=== PATIENT | male | born 1955 | race Caucasian/White ===

== ENCOUNTER → 2017-04-06 | Outpatient (CLI) | payer BC ==
[~2017-04-06] MED LIST: AMLO-114 PO; ASPEC81 PO; ATOR-24 PO; HYDC25 PO; METF-383 PO; OPTIRAY 320 IV PRN
--- NOTE | 2017-04-06 14:47 | DIAGNOSTIC IMAGING REPORT ---
ABD/PELVIS IV AND ORAL CONT CT DOSE: 746.11 mGycm HISTORY: Weight loss. Pain. Nausea. ABDOMINAL DISTENSION, RUQ PAIN, WEIGHT LOSS TECHNIQUE: Multiaxial CT images of the abdomen and pelvis were performed following the use of intravenous and oral contrast. A dose lowering technique was utilized adhering to the principles of ALARA. COMPARISON STUDY: None. FINDINGS: Lung bases are clear. Small hyperdensity superior right hepatic lobe suggestive of a small hemangioma. Liver is otherwise uniform. Gallbladder is moderately contracted. Possible gallstones. Spleen is uniform. Kidneys are unremarkable and are negative for hydronephrosis. Pancreas is fatty replaced. Bowel pattern is considered nonobstructive throughout. IMPRESSION: No significant abnormality identified within the abdomen or pelvis. Fatty replacement of the pancreas unchanged from the prior study. Contracted gallbladder possibly containing several small gallstones. The above report was generated using voice recognition software. It may contain grammatical, syntax or spelling errors. Electronically signed by: Don Bloom M.D. 04/06/2017 2:46 PM Dictated Date/Time: 04/06/2017 2:41 PM
[2017-04-06 16:32] LABS: ISTAT CREATININE 1.3 mg/dl (0.6-1.3); ISTAT HEMOGLOBIN 14.6 g/dl (14.0-18.0); ISTAT IONIZED CALCIUM 1.24 mmol/l (1.12-1.32)
== END | disposition home or self-care (01) ==
LOC: C.CTS 11:34
PROVIDERS: ATTEND Physician Assistant
DX: R22.2 Localized swelling, mass and lump, trunk (principal); R10.11 Right upper quadrant pain; R63.4 Abnormal weight loss; R14.0 Abdominal distension (gaseous)

== ENCOUNTER 2022-08-05 19:34 | Inpatient (IN) ==
[2022-08-05] MEDS ORDERED: SODIUM CHLORIDE 0.9% 1000ML 1,000 ML IV STA (20:04)
--- NOTE | 2022-08-05 20:30 | Emergency Department Note ---
History of Present Illness General Chief complaint: Back Injury/Pain Stated complaint: BACK PAIN Time Seen by Provider: 08/05/22 19:55 History of Present Illness Maximum Pain Intensity: 4 Pleasant 67-year-old male who presents to the emergency department with his mother for evaluation of left rib and abdomen pain. The patient reports that he was seen in the emergency department 3 days ago with a diagnosis of a lumbar vertebral fracture, and concerning lesion on his pelvis. The patient reports that he did call Dr. Duncan's office as requested, and they scheduled him for a follow-up on 09/05/2022. The patient reports that he has only taken 1 oxycodone since his last ED visit. He has been taking ibuprofen 400 mg twice daily. His mother reports that it only made his pain worse. The patient denies any chest pain, shortness of breath or focal abdominal pain. He denies any diarrhea, constipation or urinary symptoms. The patient has had a prior history of colonoscopy and upper endoscopy that he reports was normal. This was back several years ago. The patient currently rates his discomfort a 4 out of 10. Home Medications Medication Instructions Recorded Confirmed Type aspirin 81 mg tablet,delayed 81 mg PO DAILY 05/22/19 08/05/22 History release atorvastatin 40 mg tablet (Lipitor) 40 mg PO HS 08/09/19 08/05/22 History hydrochlorothiazide 12.5 mg capsule 12.5 mg PO DAILY 09/16/19 08/05/22 History lisinopril 20 mg tablet 20 mg PO DAILY 09/16/19 08/05/22 History metformin 500 mg tablet See Rx Instructions .Route .COMPLEX 09/16/19 08/05/22 History pen needle, diabetic 32 gauge x #100 ea 10/23/19 05/17/22 Rx /32" (BD Ultra-Fine Augustina Pen Needle) cholecalciferol (vitamin D3) 25 1,000 units PO DAILY 01/27/20 08/05/22 History mcg (1,000 unit) tablet multivitamin (Multiple Vitamins 1 tab PO DAILY 01/27/20 08/05/22 History tablet) glucosamine HCl 500 mg tablet 500 mg PO DAILY 08/20/20 08/05/22 History metoprolol tartrate 50 mg tablet 50 mg PO BID #180 tabs 11/16/21 08/05/22 Rx insulin degludec 100 unit/mL (3 33 unit (0.33 mL) subcut HS #2 04/05/22 08/05/22 Rx mL) subcutaneous pen (Tresiba Boxes FlexTouch U-100 insulin) semaglutide 2 mg/dose (8 mg/3 mL) 2 mg (0.75 mL) subcut Q7D #3 mL 05/03/22 08/05/22 Rx subcutaneous pen injector blood sugar diagnostic (Accu-Chek #100 ea 05/23/22 Rx Josephine Plus test strips) oxycodone 5 mg tablet 5 mg PO Q6H severe pain #12 tabs 08/02/22 08/05/22 Rx lidocaine 5 % topical patch 1 patch topical DAILY #15 ea 08/03/22 08/05/22 Rx diclofenac sodium 75 mg 75 mg PO BID PRN Pain 08/05/22 08/05/22 History tablet,delayed release Allergies Allergy/AdvReac Type Severity Reaction Status Date / Time amoxicillin [From Augmentin] Allergy Intermediate SWELLING Verified 08/05/22 21:54 AROUND EYES clavulanic acid Allergy Intermediate SWELLING Verified 08/05/22 21:54 AROUND THE EYES Penicillins Allergy Intermediate AUGMENTIN Verified 08/05/22 21:54 - SWELLING AROUND THE EYES diflunisal AdvReac Intermediate VOMITING Verified 08/05/22 21:54 valsartan [From Diovan] AdvReac Intermediate Vomiting Verified 08/05/22 21:54 Past Med/Surg History Medical History Bronchitis Chest pain Dyslipidemia GE reflux Gout Hypertension Laceration of multiple sites of left hand and fingers Obstructive sleep apnea Tendon laceration Type 2 diabetes mellitus Vitamin D deficiency Surgical History History of surgery on arm Family History Father Alzheimer disease Dyslipidemia Mother Diabetes Coronary heart disease Other Family history non-contributory Social History Smoking Status: Never smoker Hx Alcohol Use: Yes Preferred Language: Yakut marital status: Single marital status details: no children Current Living Situation: Alone current occupational status: retired Feels Safe at Home: Yes Review of Systems 10 system review was performed and was negative except for pertinent positives and negatives as indicated in history of present illness Physical Exam Vital Signs Vital Signs - 24 hr 08/05/22 19:34 08/05/22 22:11 08/05/22 22:12 Temperature 36.2 C L Temperature Source Temporal Artery Scan Pulse Rate 117 H Pulse Rate [Apical] 93 H Respiratory Rate 20 18 Respiratory Effort / Characteristics Non-Labored Spontaneous Respiratory Depth Normal Blood Pressure 137/79 Blood Pressure [Left Arm] 163/87 H Blood Pressure Mean 98 Blood Pressure Mean [Left Arm] 112 Pulse Oximetry 96 98 98 Oxygen Delivery Method Room Air Room Air Room Air Sepsis Recent Fever Within 48 Hours No Sepsis New/Unexplained Change in Mental Status No Sepsis Action Taken by Nursing No Action Required 08/06/22 00:00 Temperature Temperature Source Pulse Rate Pulse Rate [Apical] 100 H Respiratory Rate 20 Respiratory Effort / Characteristics Respiratory Depth Blood Pressure Blood Pressure [Left Arm] 177/109 H Blood Pressure Mean Blood Pressure Mean [Left Arm] 131 Pulse Oximetry 98 Oxygen Delivery Method Room Air Sepsis Recent Fever Within 48 Hours Sepsis New/Unexplained Change in Mental Status Sepsis Action Taken by Nursing CONSTITUTIONAL: Healthy and well nourished. Patient appears in mild discomfort. HEENT: No scleral icterus or conjunctival injection. NECK: Full active range of motion without discomfort. LYMPHATICS: No cervical chain adenopathy. RESPIRATORY: Clear to auscultation bilaterally with no wheezing, crackles, rhonchi or stridor. No worsening pain with deep breathing. CARDIOVASCULAR: Regular rate and rhythm with no murmurs, rubs or gallops. GASTROINTESTINAL: Bowel sounds present in all quadrants. Patient has mild but generalized left upper quadrant tenderness to palpation without rigidity, guarding or rebound. Negative CVA tenderness. MUSCULOSKELETAL: Patient is tender to palpation through the upper lumbar and lower thoracic region. He also has tenderness to palpation through the left anterolateral ribs without subcutaneous emphysema or flail chest. INTEGUMENTARY: No rash or other significant dermatologic conditions noted. HEMATOLOGIC: No ecchymosis or petechiae. PSYCHIATRIC: Positive affect. NEUROLOGIC: No focal neurologic deficits noted. Course Course Patient history and physical exam were performed. Nurses notes were reviewed. Vital signs were reviewed, showing a mild tachycardia. The patient is otherwise afebrile and normotensive with good O2 saturation on room air. I also reviewed documentation from the patient's ED visit on 08/02/2022. Patient does have a compression fracture of L1, as well as a concerning iliac lesion. The patient's case was discussed with Dr. Duncan, who recommended outpatient follow-up. The patient was provided a prescription for Oxy IR 5 mg, however it appears that he is only taken 1 pill this afternoon for the pain. Further review of medical record shows that the patient did have a colonoscopy in 2015, and EGD in 2013. These results were not available as this was only documented on scanned medical records. Because of new pain at this point, I was concerned for possibility of other metastatic bone pain, and recommended additional laboratory work-up and imaging of the chest and abdomen. The patient was in agreement. IV access was established, and labs were drawn. The patient refused any analgesics on initial exam. An ECG was performed, showing a sinus tachycardia without ischemic changes or ST elevations. Leftward axis deviation is noted. personnel monitor was also applied while in the emergency department. The patient was hydrated with a liter of normal saline as I wanted to do a CT with IV contrast. Review of labs shows a creatinine of 3.75, and calcium of 4.5. High-sensitivity troponin is also elevated at 26.9. IV contrast scans were canceled, and CTs without contrast were ordered. Findings were discussed with Dr. Russell, ED attending physician, who also evaluated the patient and agrees with work-up. [facility]. Please see their dictation for further treatment and final disposition. The patient refused any analgesics while in the emergency department. Administered Medications Discontinued Medications Sodium Chloride (Nss 1000ml) 1,000 mls @ 999 mls/hr IV .Q1H1M STA Stop: 08/05/22 21:04 Last Infusion: 08/05/22 21:13 Dose: 0 mls/hr Documented By: Admin: 08/05/22 20:11 Dose: 999 mls/hr Documented By: ANDREA Medical Decision Making Medical Records Attestation: I reviewed the patient's medical records. Home Medications Current Medication List: was personally reviewed by me Laboratory Data Attestation: I reviewed the patient's lab results. 08/05/22 20:13 08/05/22 20:13 Lab Results 08/05/22 08/05/22 08/05/22 Range/Units 20:13 20:13 20:13 WBC 7.00 (4.8-10.8) K/ul RBC 4.08 L (4.63-6.08) M/uL Hgb 13.3 L (14.0-18.0) g/dl Hct 36.7 L (40.1-51.0) % MCV 90.0 (80.0-100.0) fL MCH 32.6 (25.0-34.0) pg MCHC 36.2 H (32.0-36.0) g/dL RDW Std Deviation 42.3 (36.4-46.3) fL RDW Coeff of Jose Juan 12.9 (11.5-14.5) % Plt Count 271 (130-400) K/uL MPV 9.9 (9.4-12.4) fL Immature Gran % (Auto) 0.4 % Neut % (Auto) 72.1 % Lymph % (Auto) 16.9 % Obion % (Auto) 9.4 % Eos % (Auto) 0.9 % Baso % (Auto) 0.3 % Neut # (Auto) 5.05 (1.4-6.5) K/uL Lymph # (Auto) 1.18 L (1.2-3.4) K/uL [place] # (Auto) 0.66 (0.24-0.82) K/uL Eos # (Auto) 0.06 (0-0.50) K/uL Baso # (Auto) 0.02 (0-0.2) K/uL Immature Gran # (Auto) 0.03 H (0.00-0.02) K/uL PT 11.8 (9.0-12.0) Seconds INR 1.1 (0.9-1.1) Sodium 133 L (136-145) mmol/L Potassium 4.1 (3.5-5.1) mmol/L Chloride 98 (98-107) mmol/L Carbon Dioxide 25 (21-32) mmol/L Anion Gap 10 (3-11) BUN 55 H (6-23) mg/dl Creatinine 3.75 H (0.6-1.4) mg/dl Est Cr Clr Drug Dosing 19.9 ml/min Est GFR ( Amer) 17.9 ml/min Est GFR (Non-Af Amer) 15.5 ml/min BUN/Creatinine Ratio 14.7 (10-20) Glucose 198 H (70-99(Fasting)) mg/dl Calcium 14.5 H* (8.5-10.1) mg/dl Total Bilirubin 0.7 (0.2-1.0) mg/dl AST 14 (13-39) U/L ALT 17 (7-52) U/L Alkaline Phosphatase 119 H (34-104) U/L Troponin I High Sens 26.9 H (0-20) pg/ml Total Protein 7.0 (6.0-8.3) gm/dl Albumin 4.1 (3.4-5.0) gm/dl Globulin 2.9 (2.5-4.0) gm/dl Albumin/Globulin Ratio 1.4 (0.9-2) Lipase 6 L (11-82) U/L Urine Color Urine Appearance (Clear) Urine pH (4.5-7.5) Ur Specific Chauvin (1.000-1.030) Urine Protein (Negative) Urine Glucose (UA) (Negative) Urine Ketones (Negative) Urine Blood (Negative) Urine Nitrite (Negative) Urine Bilirubin (Negative) Urine Urobilinogen (Negative) Ur Leukocyte Esterase (Negative) Urine WBC (Auto) (0-5) /hpf Urine RBC (Auto) (0-4) /hpf U Hyaline Cast (Auto) (0-5) /lpf U Epithel Cells (Auto) (0-5) /lpf Urine Bacteria (Auto) (Negative) SARS-CoV-2, RNA, NAAT (NEGATIVE) 08/05/22 08/05/22 Range/Units 21:18 22:35 WBC (4.8-10.8) K/ul RBC (4.63-6.08) M/uL Hgb (14.0-18.0) g/dl Hct (40.1-51.0) % MCV (80.0-100.0) fL MCH (25.0-34.0) pg MCHC (32.0-36.0) g/dL RDW Std Deviation (36.4-46.3) fL RDW Coeff of Jose Juan (11.5-14.5) % Plt Count (130-400) K/uL MPV (9.4-12.4) fL Immature Gran % (Auto) % Neut % (Auto) % Lymph % (Auto) % [place] % (Auto) % Eos % (Auto) % Baso % (Auto) % Neut # (Auto) (1.4-6.5) K/uL Lymph # (Auto) (1.2-3.4) K/uL [place] # (Auto) (0.24-0.82) K/uL Eos # (Auto) (0-0.50) K/uL Baso # (Auto) (0-0.2) K/uL Immature Gran # (Auto) (0.00-0.02) K/uL PT (9.0-12.0) Seconds INR (0.9-1.1) Sodium (136-145) mmol/L Potassium (3.5-5.1) mmol/L Chloride (98-107) mmol/L Carbon Dioxide (21-32) mmol/L Anion Gap (3-11) BUN (6-23) mg/dl Creatinine (0.6-1.4) mg/dl Est Cr Clr Drug Dosing ml/min Est GFR ( Amer) ml/min Est GFR (Non-Af Amer) ml/min BUN/Creatinine Ratio (10-20) Glucose (70-99(Fasting)) mg/dl Calcium (8.5-10.1) mg/dl Total Bilirubin (0.2-1.0) mg/dl AST (13-39) U/L ALT (7-52) U/L Alkaline Phosphatase (34-104) U/L Troponin I High Sens (0-20) pg/ml Total Protein (6.0-8.3) gm/dl Albumin (3.4-5.0) gm/dl Globulin (2.5-4.0) gm/dl Albumin/Globulin Ratio (0.9-2) Lipase (11-82) U/L Urine Color Yellow Urine Appearance Clear (Clear) Urine pH 7.0 (4.5-7.5) Ur Specific Chauvin 1.010 (1.000-1.030) Urine Protein 1+ H (Negative) Urine Glucose (UA) Negative (Negative) Urine Ketones Negative (Negative) Urine Blood Trace H (Negative) Urine Nitrite Negative (Negative) Urine Bilirubin Negative (Negative) Urine Urobilinogen Negative (Negative) Ur Leukocyte Esterase Negative (Negative) Urine WBC (Auto) 1-5 (0-5) /hpf Urine RBC (Auto) 0-4 (0-4) /hpf U Hyaline Cast (Auto) 1-5 (0-5) /lpf U Epithel Cells (Auto) 10-20 H (0-5) /lpf Urine Bacteria (Auto) Negative (Negative) SARS-CoV-2, RNA, NAAT NEGATIVE (NEGATIVE) Imaging Data Attestation: I personally reviewed and interpreted this imaging study as follows: My Impression: My interpretation of the CT with IV contrast of the chest does not show any concerning pulmonary lesions, pneumothorax or consolidations. Radiologist does make mention of cholelithiasis. My interpretation of a CT with IV contrast of the abdomen and pelvis shows the previously known L1 vertebral compression fracture, otherwise no evidence for b owel obstruction, diverticulitis or abdominal free air. Patient does have a nonobstructing right intrarenal calculus per radiologist report. [facility] radiologist reports were also reviewed, and summarized below. Local radiologist report is pending. Radiologist's Impression: CT CHEST Without Contrast: Linear atelectasis right lung base. No lobar consolidations. No effusions. Heart size and pulmonary vascularity within normal limits evaluation the upper abdomen demonstrates cholelithiasis. Radiologist: Lloyd Moraes MD CT ABDOMEN & PELVIS Without Contrast: Please see separate dictation for details of the intrathoracic contents Cholelithiasis Nonobstructing right intrarenal calculus. No left intrarenal calculi. No ureteral or bladder calculi present on this exam. No free air or intestinal obstruction identified on this exam. Normal-appearing appendix in the right lower quadrant. L1 vertebral body compression fracture. Radiologist: Lloyd Moraes MD ECG Data Attestation: I personally reviewed and interpreted this ECG as follows: Indication: + chest pain Rate (beats per minute): 102 Rhythm: + sinus tachycardia ECG Intervals/blocks: + Normal QRS and + Normal GA ECG [place]: + Left axis deviation ECG ST segments: + Normal ST segments Comparison ECG Date: from (03/31/2022) Change: the following changes noted (PVCs no longer present) Prescription Drug Monitoring [place] Drug Monitoring [place] reviewed and no issues identified Blood Pressure Blood Pressure Findings: Normal blood pressure MDM Narrative Cardiac monitoring: An order was placed for continuous cardiac monitoring. The monitor shows a rate of 102 bpm with a sinus tachycardic rhythm. personnel monitor history was reviewed throughout the evaluation, and no dysrhythmias were noted. Patient presents the emergency department with complaint of left rib pain. The patient was just seen in the emergency department 3 days ago for an L1 compression fracture, as well as a concerning osteoblastic lesion within the left iliac wing. Today's laboratory studies are concerning for acute renal failure, and with hypercalcemia also noted, metastatic process was considered. Patient is afebrile and has no leukocytosis, leukopenia or pancytopenia. Additional laboratory studies are not suggestive of pancreatitis, cholecystitis or hepatitis. CT imaging does show evidence for cholelithiasis and a nonobstructing right nephrolithiasis. Chest imaging does not show any concerning pulmonary lesions, pneumonia or pneumothorax. Patient does have an elevated troponin of uncertain etiology, with no concerning ECG findings. The patient will likely require serial ECGs and cardiac isoenzymes. Impression & Plan Acute renal failure, Closed compression fracture of L1 vertebra, Lytic lesion of bone on x-ray, Hypercalcemia, Elevated troponin level Discharge Plan Visit Data Chief Complaint: Back Injury/Pain Stated Complaint: BACK PAIN ED Provider: Zhang Russell ED Midlevel Provider: Saji June Discharge Problem: Acute renal failure, Closed compression fracture of L1 vertebra, Lytic lesion of bone on x-ray, Hypercalcemia, Elevated troponin level Forms Stand Alone Forms: [facility] [employer] Prescriptions Prescriptions: No Action (DME) pen needle, diabetic [BD Ultra-Fine Augustina Pen Needle] 32 gauge x 5/32" needle See Rx Instructions .ROUTE .MEDSUPPLY Qty: 100 3RF Rx Instructions: Use to inject once daily metoprolol tartrate 50 mg tablet 50 mg PO BID Qty: 180 3RF Tresiba FlexTouch U-100 100 unit/mL (3 mL) insulin pen 33 unit SQ HS MDD 33 UNITS/DAILY Qty: 2 3RF Rx Instructions: Up to 33 units a day semaglutide 2 mg/dose (8 mg/3 mL) pen injector 2 mg subcut Q7D Qty: 3 5RF Rx Instructions: TAKES MONDAY EVENING (DME) Accu-Chek Josephine Plus test strp Strip See Rx Instructions .ROUTE .MEDSUPPLY Qty: 100 3RF Rx Instructions: checking TID multivitamin [Multiple Vitamins] Tablet 1 tab PO DAILY aspirin 81 mg tablet,delayed release (DR/EC) 81 mg PO DAILY atorvastatin [Lipitor] 40 mg tablet 40 mg PO HS cholecalciferol (vitamin D3) 25 mcg (1,000 unit) tablet 1,000 units PO DAILY glucosamine HCl 500 mg tablet 500 mg PO DAILY metformin 500 mg tablet See Rx Instructions .ROUTE .COMPLEX Rx Instructions: 500 mg orally; TAKES 500 MG QAM, THEN 1,000 MG QPM. lisinopril 20 mg tablet 20 mg PO DAILY hydrochlorothiazide 12.5 mg capsule 12.5 mg PO DAILY diclofenac sodium 75 mg tablet,delayed release (DR/EC) 75 mg PO BID PRN (Reason: Pain) oxycodone 5 mg tablet 5 mg PO Q6H Qty: 12 0RF lidocaine 5 % adhesive patch,medicated 1 patch topical DAILY Qty: 15 0RF Rx Instructions: "PHARMACY DID NOT GET IN YET" PER PT. leave on most painful area for up to 12 hrs Referrals Referrals: Maria Ines Damon DO [Primary Care Provider] -
[2022-08-05 20:34] LABS: Basophils # (auto) 0.02 K/uL (0-0.2); Basophils % (auto) 0.3 %; Eosinophils # (auto) 0.06 K/uL (0-0.50); Eosinophils % (auto) 0.9 %; Hematocrit (blood only) 36.7 % (40.1-51.0); Hemoglobin 13.3 g/dl (14.0-18.0); Immature Granulocytes # (auto) 0.03 K/uL (0.00-0.02); Immature Granulocytes % (auto) 0.4 %; Lymphocytes # (auto) 1.18 K/uL (1.2-3.4); Lymphocytes % (auto) 16.9 %; Mean Corpuscular Hemoglobin 32.6 pg (25.0-34.0); Mean Corpuscular Hgb Conc 36.2 g/dL (32.0-36.0); Mean Platelet Volume 9.9 fL (9.4-12.4); Monocytes # (auto) 0.66 K/uL (0.24-0.82); Monocytes % (auto) 9.4 %; Neutrophils # (auto) 5.05 K/uL (1.4-6.5); Neutrophils % (auto) 72.1 %; Platelet Count 271 K/uL (130-400); RDW Coefficient of Variation 12.9 % (11.5-14.5); RDW Standard Deviation 42.3 fL (36.4-46.3); Red Blood Count 4.08 M/uL (4.63-6.08)
[2022-08-05 20:44] LABS: INR 1.1 (0.9-1.1); Prothrombin Time 11.8 Seconds (9.0-12.0)
[2022-08-05 21:01] LABS: Albumin Globulin Ratio 1.4 (0.9-2); Albumin Level 4.1 gm/dl (3.4-5.0); BUN Creatinine Ratio 14.7 (10-20); Bilirubin,Total 0.7 mg/dl (0.2-1.0); Calcium 14.5 mg/dl (8.5-10.1); Creatinine Clr Calc Pharmacy 19.9 ml/min; Est GFR (African American) 17.9 ml/min; Est GFR (Non-African American) 15.5 ml/min; Globulin 2.9 gm/dl (2.5-4.0); Potassium 4.1 mmol/L (3.5-5.1); Troponin I High Sensitivity 26.9 pg/ml (0-20)
--- NOTE | 2022-08-05 21:37 | Emergency Department Note ---
ED Visit Note I was consulted by the Advanced Practice Provider Saji June PA-C. I saw the patient personally and performed a substantive portion of the visit. This includes aspects of the HPI, MDM, diagnostic interpretations, and disposition/plan. Patient does have an L1 vertebral fracture with elevated calcium. Patient was admitted to the medicine service. Patient CT did show concern for osteolytic lesions. .
--- NOTE | 2022-08-05 22:35 | History & Physical Report ---
Date of Service August 05, 2022 Assessment & Plan (1) Closed L1 vertebral fracture: Plan: Haroon is a 67 year old male w/ PmHx of T2DM on insulin, L1 vertebral compression fracture, AZAR, vitamin D deficiency, GERD, gout, HTN admitted for hypercalcemia. Hypercalcemia: -Calcium 14.5 on admission. -Calcium 8-9 previous admissions. -Given 1 bolus of NSS in ED. -Ordered PTH, PTHrP, ionized calcium, Vit-D 25 hydroxy, Vit D 1,25 Dihydroxy le vels, Mg, Phos. -U/A pending. -May be secondary to osteolytic lesions L iliac wing seen on CT on prior ED visit. -Workup for other possible secondary causes. -Consult oncology, appreciate recs. -Continued NSS at 125ml/hr. -Given Pamindronate 60mg IV one time dose. -Continue to monitor with AM BMP. -Admitted to PCU, continuous cardiac monitoring. Lytic Bone lesion of hip: -Same plan as above. Questionable source of lytic lesion, questionable underlying malignancy. Acute back pain: -Ongoing back pain since generator heavy load incident at work mid June. -CT Lumbar spine from 08/02 w/ evidence of L1 endplate compression fracture w/ mild loss of height. -Has scheduled appointment w/ Dr. Duncan 09/02. -Tylenol 650mg q4h PRN, ibuprofen 600mg q6h PRN, oxycodone 5mg for mod to severe pain. Acute renal failure: -GFR 15.5, Creatinine 3.75 on admission. -Baseline creatinine 1.2-1.4. -Most likely secondary to hypercalcemia. -Continue IV fluids as above. Elevated troponin: -Troponin 26.9 on admission. -Most likely secondary to demand ischemia. -Continue to trend until peak. T2DM: -Takes basal insulin at home 33U daily. -Hold remaining home medications. -Lantus 17U BID, SSI while inpatient. -Ordered A1c. -Glucose ACHS. Fatigue: -Most likely due to hypercalcemia, hgb 13.3 near baseline. -Continue to monitor mentation while on fluids. HTN: -continue home lisinopril, metoprolol, HCTZ. HLD: -Continue home atorvastatin and baby aspirin. F/E/N/GI: NPO, can restart diet if calcium coming down appropriately. DVT Prophylaxis: SCDs. Code status: Full code. Patient would not like for sustained measures if unable to obtain ROSC after 1 round of CPR, would not want more than one spontaneous trial of breathing if intubated. Dispo: PCU/Tele. (2) Lytic bone lesion of hip: (3) Acute back pain: (4) Acute renal failure: (5) Hypercalcemia: (6) Elevated troponin level: (7) Fatigue: (8) GE reflux: (9) Hypertension: (10) Dyslipidemia: (11) Type 2 diabetes mellitus: History of Present Illness Chief Complaint: Lower back and abdominal pain. Primary Care Provider: Maria Ines Damon DO Haroon is a 67 year old male w/ PmHx T2DM on insulin, L1 vertebral compression fracture, AZAR, vitamin D deficiency, GERD, gout, HTN coming in to the hospital for worsening lower back and LLQ abdominal pain. 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 The generator weighs about 300lbs each according to the patient. He states that after that happened he had R shoulder pain as well as lower back pain. He was told by his PCP office he likely has a rotator cuff tear/injury. The pain got worse a few weeks after the initial incident and so early July he came into the ED for the back pain. In the ED a L1 fracture w/ loss of height as well as lytic bone lesion of L anterior pelvic bone was seen on CT and he was told to follow up with spine surgery for further management. Patient states he was scheduled to go to Dr. Duncan's office at the beginning of August for initial evaluation and told that follow up after that may be mid August. Since that ED visit patient states that the pain has not subsided, gets marginally better with diclofenac, however no change with icy-hot. He states the pain is mostly at the anterior LLQ and pain at that area is a 5/10, he also has some lower back pain 3/10 at the mid back of the lumbar region. He states it's worse with getting up or sitting up from his water bed although gets a little better with walking. Patient denies any fevers, chills, night sweats, unintentional weight loss or weight gain, diarrhea, vomiting, chest pain, headaches, changes in vision or hearing, numbness or tingling, focal weakness. Upon further analysis of his [employer] chart patient was called on 10/07/2020 for development of shortness of breath, 12 pound weight loss over past year without trying, and coughing up pink/sometimes red sputum. He had a cardiac workup at that time which was negative and told to go to ED for further imaging and workup. He had CTA chest and CXR which were negative aside for 2 subcentimeter indeterminate pulmonary nodules (5mm). Allergies Allergy/AdvReac Type Severity Reaction Status Date / Time amoxicillin [From Augmentin] Allergy Intermediate SWELLING Verified 08/05/22 21:54 AROUND EYES clavulanic acid Allergy Intermediate SWELLING Verified 08/05/22 21:54 AROUND THE EYES Penicillins Allergy Intermediate AUGMENTIN Verified 08/05/22 21:54 - SWELLING AROUND THE EYES diflunisal AdvReac Intermediate VOMITING Verified 08/05/22 21:54 valsartan [From Diovan] AdvReac Intermediate Vomiting Verified 08/05/22 21:54 Home Medications Medication Instructions Recorded Confirmed Type aspirin 81 mg tablet,delayed 81 mg PO DAILY 05/22/19 08/05/22 History release atorvastatin 40 mg tablet (Lipitor) 40 mg PO HS 08/09/19 08/05/22 History hydrochlorothiazide 12.5 mg capsule 12.5 mg PO DAILY 09/16/19 08/05/22 History lisinopril 20 mg tablet 20 mg PO DAILY 09/16/19 08/05/22 History metformin 500 mg tablet See Rx Instructions .Route .COMPLEX 09/16/19 08/05/22 History pen needle, diabetic 32 gauge x #100 ea 10/23/19 05/17/22 Rx 5/32" (BD Ultra-Fine Augustina Pen Needle) cholecalciferol (vitamin D3) 25 1,000 units PO DAILY 01/27/20 08/05/22 History mcg (1,000 unit) tablet multivitamin (Multiple Vitamins 1 tab PO DAILY 01/27/20 08/05/22 History tablet) glucosamine HCl 500 mg tablet 500 mg PO DAILY 08/20/20 08/05/22 History metoprolol tartrate 50 mg tablet 50 mg PO BID #180 tabs 11/16/21 08/05/22 Rx insulin degludec 100 unit/mL (3 33 unit (0.33 mL) subcut HS #2 04/05/22 08/05/22 Rx mL) subcutaneous pen (Tresiba Boxes FlexTouch U-100 insulin) semaglutide 2 mg/dose (8 mg/3 mL) 2 mg (0.75 mL) subcut Q7D #3 mL 05/03/22 08/05/22 Rx subcutaneous pen injector blood sugar diagnostic (Accu-Chek #100 ea 05/23/22 Rx Josephine Plus test strips) oxycodone 5 mg tablet 5 mg PO Q6H severe pain #12 tabs 08/02/22 08/05/22 Rx lidocaine 5 % topical patch 1 patch topical DAILY #15 ea 08/03/22 08/05/22 Rx diclofenac sodium 75 mg 75 mg PO BID PRN Pain 08/05/22 08/05/22 History tablet,delayed release Past Med/Surg History Medical History Bronchitis Chest pain Dyslipidemia GE reflux Gout Hypertension Laceration of multiple sites of left hand and fingers Obstructive sleep apnea Tendon laceration Type 2 diabetes mellitus Vitamin D deficiency Surgical History History of surgery on arm Family History Father Alzheimer disease Dyslipidemia Mother Diabetes Coronary heart disease Other Family history non-contributory Social History Smoking Status: Never smoker Second Hand Exposure: No; Hx Alcohol Use: No Hx Substance Use: No Preferred Language: Croatian Communication Ability: Effective Food And Beverage Coordinator Required: No Beliefs That Will Affect Care: None marital status: Single marital status details: no children Current Living Situation: Alone current occupational status: retired Feels Safe at Home: Yes Assistive Devices: CPAP Review of Systems Review of Systems: As per HPI. Physical Exam Constitutional: WD/WN, vitals as above Eyes: PERRL, conjunctivae normal, anicteric sclerae Respiratory: normal respiratory effort, lungs clear to auscultation Cardiovascular: RRR, no murmur, no edema Gastrointestinal (Abdomen): BS+, obese habitus, soft, tender to palpation LLQ as well as at the L ASIS. Musculoskeletal: no cyanosis or clubbing, extremities motor strength 5/5 Skin: no rashes, warm and dry Psychiatric: A+Ox3, euthymic affect Results & Data Results & Data ([facility]) Vital Signs (Past 12 Hours) Vital Signs Temp Pulse Pulse Resp BP BP Pulse Ox 08/05/22 22:12 98 08/05/22 22:11 93 H 18 163/87 H 98 08/05/22 19:34 36.2 C L 117 H 20 137/79 96 O2 Del Method 08/05/22 22:12 Room Air 08/05/22 22:11 Room Air 08/05/22 19:34 Room Air Supervising Physician Co-Signing Physician Notes Attending addendum: I have physically seen this patient, have supervised the medical residents activities, and agree with the H&P unless as otherwise noted. Assessment and Plan: Hypercalcemia- Calcium 14.5 on admission Status post normal saline 1 L bolus in the ED Continue rehydration with NSS at 125 mils per hour Pamidronate 60 mg IV x1 now Follow serial BMP magnesium levels Acute kidney injury- Creatinine 3.75 on admission, with baseline creatinine 1.27 Hydration as above with IV fluids Repeat laboratory serially in a.m. Lytic bone lesions on hip- We will consult oncology Dr. Jesus Elevated troponin- Troponin 26.9 on admission Likely supply demand mismatch type II Follow serially per protocol Diabetes mellitus- Insulin glargine as note Sliding scale insulin for coverage Check hemoglobin A1c Remaining orders and notations as noted Resident Activity Tracking Resident Involvement: Resident Care Provided Care Provided: Adult Hospital Medicine
[2022-08-05 23:14] LABS: Appearance Urine Clear (Clear); Bacteria Urine Automated Negative (Negative); Bilirubin Urine Negative (Negative); Blood Urine Trace (Negative); Color Urine Yellow; Glucose Urine UA Negative (Negative); Ketones Urine Negative (Negative); Leukocyte Esterase Urine Negative (Negative); Nitrite Urine Negative (Negative); Protein Urine 1+ (Negative); RBC Urine Automated 0-4 /hpf (0-4); Urobilinogen Urine Negative (Negative)
[2022-08-06] MEDS ORDERED: GLUCOSE 40% GEL 15 GM TUBE PO PRN (00:53)
[2022-08-06] MEDS ORDERED: GLUCOSE 10 TAB/TUBE PO PRN (00:53)
[2022-08-06] MEDS ORDERED: ONDANSETRON INJ 2 MG/ML 2 ML VIAL IV PRN (00:53)
[2022-08-06] MEDS ORDERED: POLYETHYLENE (MIRALAX) 17 GM PACK PO PRN (00:53)
[2022-08-06] MEDS ORDERED: oxyCODONE HCL IR 5 MG TAB (IMMEDIATE RELEASE) PO PRN (00:53)
[2022-08-06] MEDS ORDERED: CARBOHYDRATES FOR HYPOGLYCEMIA PO PRN (00:53)
[2022-08-06] MEDS ORDERED: IBUPROFEN 600 MG TAB PO PRN (00:53)
[2022-08-06] MEDS ORDERED: DEXTROSE 50% 50 ML SYRINGE IV PRN (00:53)
[2022-08-06] MEDS ORDERED: GLUCAGON FOR INJ 1 MG VIAL SQ PRN (00:53)
[2022-08-06] MEDS ORDERED: PAMIDRONATE DISODIUM 60 MG in SODIUM CHLORIDE 0.9% 1000ML 1,000 ML IV ONE (01:30)
[2022-08-06 01:47] LABS: Basophils # (auto) 0.03 K/uL (0-0.2); Basophils % (auto) 0.5 %; Eosinophils % (auto) 1.8 %; Hematocrit (blood only) 32.7 % (40.1-51.0); Hemoglobin 11.7 g/dl (14.0-18.0); Immature Granulocytes # (auto) 0.02 K/uL (0.00-0.02); Immature Granulocytes % (auto) 0.4 %; Lymphocytes # (auto) 1.25 K/uL (1.2-3.4); Lymphocytes % (auto) 22.3 %; Mean Corpuscular Hemoglobin 32.5 pg (25.0-34.0); Mean Corpuscular Hgb Conc 35.8 g/dL (32.0-36.0); Mean Corpuscular Volume 90.8 fL (80.0-100.0); Mean Platelet Volume 9.6 fL (9.4-12.4); Monocytes # (auto) 0.47 K/uL (0.24-0.82); Monocytes % (auto) 8.4 %; Neutrophils # (auto) 3.73 K/uL (1.4-6.5); Neutrophils % (auto) 66.6 %; Platelet Count 235 K/uL (130-400); RDW Coefficient of Variation 12.9 % (11.5-14.5); RDW Standard Deviation 42.5 fL (36.4-46.3)
[2022-08-06] MEDS: SODIUM CHLORIDE 0.9% 1000ML 1,000 ML IV SCH ×3 (01:50→15:46)
[2022-08-06] MEDS: LANTUS PER UNIT CHARGE SQ SCH ×3 (02:07→22:03)
[2022-08-06 02:26] LABS: BUN Creatinine Ratio 14.5 (10-20); Calcium 13.6 mg/dl (8.5-10.1); Creatinine Clr Calc Pharmacy 20.4 ml/min; Est GFR (African American) 18.5 ml/min; Est GFR (Non-African American) 15.9 ml/min; Potassium 4.1 mmol/L (3.5-5.1)
[2022-08-06 02:27] LABS: Albumin Level 3.7 gm/dl (3.4-5.0); BUN Creatinine Ratio 14.6 (10-20); Calcium 13.6 mg/dl (8.5-10.1); Creatinine Clr Calc Pharmacy 20.5 ml/min; Est GFR (African American) 18.6 ml/min; Magnesium 1.7 mg/dl (1.7-2.4); Phosphorus 4.6 mg/dl (2.5-4.9); Potassium 4.1 mmol/L (3.5-5.1); Troponin I High Sensitivity 40.9 pg/ml (0-20)
[2022-08-06] MEDS: ACETAMINOPHEN 325 MG TAB PO PRN ×2 (03:14→09:14)
[2022-08-06 07:14] LABS: Estimated Average Glucose 137 mg/dl; Hemoglobin A1C 6.4 % (4.5-5.6)
--- NOTE | 2022-08-06 07:41 | CT Scan Report ---
CT chest diagnostic wo con CT DOSE: 1150.27 mGy.cm HISTORY: L rib pain, L1 fx, pelvic lesion = Cr 3.75 TECHNIQUE: Multiaxial CT images of the chest were performed without contrast. A dose lowering techni que was utilized adhering to the principles of ALARA. COMPARISON: Chest CTA 10/07/2020. FINDINGS: There are multiple lytic/destructive lesion seen scattered throughout the spine, ribs, manu brium, right clavicle, and left scapula consistent with metastatic disease. There are pathologic frac tures involving the right medial clavicle and left seventh rib. The abdominal structures will be repo rted on the same day abdomen and pelvis CT. No pleural or pericardial effusions. The heart is normal in size. Normal caliber esophagus and thoracic aorta. Mild elevation of the right hemidiaphragm. No m ediastinal, hilar, or axillary lymphadenopathy. No pneumothorax. Trace mucoid material within the tra matthieu. Mild dependent changes seen at the lung bases. A stable 5 no new pulmonary nodules identified. Mm nodule within the left lower lobe on image 171. IMPRESSION: 1. Multiple scattered lytic/destructive osseous lesions as described above consistent with metastatic disease. These result in pathologic fractures of the right medial clavicle and left seventh rib. No pneumothorax 2. Stable 5 mm nodule within the left lower lobe. No new pulmonary nodules identified. 3. The abdominal structures will be reported separately. ACT 112: Negative or not required by law. Electronically signed by: Keshawn Manzo M.D. 08/06/2022 7:40 AM
--- NOTE | 2022-08-06 07:53 | Hospitalist Progress Note ---
Date of Service August 06, 2022 Assessment & Plan (1) Hypercalcemia: Plan: 67yo male presenting with abdominal pain, back pain and side pain. Found to have severe hypercalcemia with Ca=14.5. Prior levels have been within normal range - 8-9. Patient thus far has been hydrated with NSS x 1L bolus then at 125mL/hr and has received Pamidronate 60mg IV x 1. Ionized calcium elevated at 1.82. Alkaline phosphatase is mildly elevated at 119. Mg is normal at 1.7, PO4 normal at 4.6. 25-OH vitamin D with normal at 77.9 PTH intact is normal at 51.4 PTHrP level is pending Concern for hypercalcemia secondary to malignancy with bone involvement - multiple osteolytic lesions noted on imaging. Additional considerations which could be contributing - patient is on HCTZ which can lead to hypercalcemia. He also endorses drinking a lot of mild - appx 1 gallon/week himself as well as frequently eating cheese. Doubtful, however, that these are contributing strongly to patient's current presentation. -Check urine Ca -Await PTHrP levels -Check SPEP and UPEP for possible multiple myeloma -Oncology consultation appreciated -Continue NSS at 125mL/hr -Repeat labs today pending -Will hold HCTZ (2) Osteolytic lesion: Plan: Patient with multiple osteolytic lesions and area of bony destruction noted on CT imaging. Also with hypercalcemia, YOSI and mildly elevated alkaline phosphatase. Concern for underlying malignancy - multiple myeloma versus metastatic disease. Per HPI, he did have complaint of SOB, 12 pound unintentional weight loss and productive cough/mild hemoptysis in September 2020. He reports having a colonoscopy 5 years ago with one polyp removed. No complaint of bowel changes, melena or hematochezia. PSA in [address] of the chest demonstrates a stable 5mm nodule in the LLL with no new pulmonary nodules. -Treatment of hypercalcemia as above -Check SPEP/UPEP -Oncology consultation appreciated (3) Acute renal failure: Plan: Patient's Cr 3.75 on admission from normal baseline of appx 1.2. Most likely secondary to hypercalcemia. -Repeat labs pending -Continue NSS at 125mL/hr -Avoid nephrotoxic medications -Renal dosing where appropriate for CrCl of 20.4 -Hold Lisinopril (4) Elevated troponin level: Plan: Troponin=26.9 on admission. Increased to 40.9 on repeat. Patient did have an episode of chest and back discomfort prior to arrival while trying to get out of bed. No acute ischemic changes on EKG -Continue telemetry monitoring -Repeat troponin pending -Continue ASA 81mg po daily -Continue Atorvastatin 40mg po qHS -Continue Metoprolol 50mg po BID (5) Closed L1 vertebral fracture: Plan: Patient with ongoing back pain since June. CT Lumbar spine from 08/02 w/ evidence of L1 endplate compression fracture w/ mild loss of height, no retropulsion. No neurologic symptoms. -Has scheduled appointment w/ Dr. Duncan 09/02. -Tylenol 650mg q4h PRN, ibuprofen 600mg q6h PRN, oxycodone 5mg for mod to severe pain. (6) Hypertension: Plan: Blood pressure presently elevated -Pain control as above -Continue Metoprolol -Holding HCTZ in setting of hypercalcemia -Holding Lisinopril in setting of YOSI (7) Type 2 diabetes mellitus: Plan: Patient takes 33u basal insulin at home as well as Metformin and Semaglutide. Well controlled DM - AIC today =6.4% -Lantus 17u BID and SSI -Hold Metformin and Semaglutide (8) Dyslipidemia: Plan: Chronic -Continue Atorvastatin and ASA F/E/N/GI: Renal diet as tolerated DVT Prophylaxis: Lovenox and SCDs Code status: Full code. Patient would not like for sustained measures if unable to obtain ROSC after 1 round of CPR, would not want more than one spontaneous trial of breathing if intubated. Dispo: PCU/Tele. Admission and Anticipated Discharge Date Admission Date: August 05, 2022 Subjective Patient seen and examined in ER room A10. Briefly, he is a 67yo male with history of HTN, DM and HLP presenting with complaint of left rib pain and abdominal pain. His discomfort initially began in mid-June after he sustained an injury while moving a generator that caused him pain in the shoulder and low back. He was seen in the ER at that time and found to have an L1 fracture as well as incidental finding of a lytic lesion in the left anterior pelvic bone. He is scheduled to see Dr. Duncan for management of the L1 fracture in August. Patient admitted overnight with worsening abdominal pain and pain in the left rib. Initial workup revealed hypercalcemia (Ca=14.5, ICal=1.82) as well as YOSI with Cr of 3.75 from baseline of appx 1.1 - 1.2. CT of the abdomen and pelvis unfortunately revealed numerous osteolytic skeletal lesions as well as acute nondisplaced pathologic fracture of the left lateral 7th rib as well as other areas of bony destruction and non-obstructing nephrolithiasis in the right kidney. Patient has been hydrated with NSS and given Pamidronate. Review of Systems Review of Systems: All systems reviewed & are unremarkable except as noted in HPI & below Physical Exam Physical Exam: General: patient resting comfortably, NAD, non-toxic in appearance, AA&O x 4 Skin: warm, dry, intact, no rashes or lesions HEENT: NC/AT, PERRL, EOMI, anicteric sclera, conjunctiva without injection, external ear normal to inspection and nontender, nares patent, slightly dry mucus membranes, dentition intact, no oropharyngeal lesions, neck supple, trachea midline, no LAD, no thyromegaly, no JVD Heart: +S1/S2, regular, no m/r/g Lungs: equal air entry bilaterally, no rales/rhonchi/wheezes Abd: +BS, soft, mildly distended and diffusely tender to palpation with voluntary guarding, no peritonitis, tenderness over left ribs Ext: warm, 2+ pulses in UE/LE bilaterally, no clubbing/cyanosis or edema Neuro: nonfocal, patient AA&O x 4, speech intact, no facial droop, moving all extremities on command with equal strength 5/5, occasional muscle spasms Results & Data Results & Data ([facility]) Vital Signs (Past 12 Hours) Vital Signs Temp Pulse Resp BP Pulse Ox Pulse Ox O2 Del Method 08/06/22 05:40 36.6 C 80 16 152/84 H 96 Room Air 08/06/22 01:59 99 H 16 156/88 H 97 Room Air 08/06/22 01:00 36.5 C 101 H 18 168/102 H 98 Room Air 08/06/22 01:04 98 08/06/22 00:00 100 H 20 177/109 H 98 Room Air 08/05/22 22:12 98 Room Air 08/05/22 22:11 93 H 18 163/87 H 98 Room Air O2 Del Method 08/06/22 05:40 08/06/22 01:59 08/06/22 01:00 08/06/22 01:04 Room Air 08/06/22 00:00 08/05/22 22:12 08/05/22 22:11 Laboratory Results Laboratory Results WBC 5.60 K/ul (4.8-10.8) 08/06/22 01:37 RBC 3.60 M/uL (4.63-6.08) L 08/06/22 01:37 Hgb 11.7 g/dl (14.0-18.0) L 08/06/22 01:37 Hct 32.7 % (40.1-51.0) L 08/06/22 01:37 MCV 90.8 fL (80.0-100.0) 08/06/22 01:37 MCH 32.5 pg (25.0-34.0) 08/06/22 01:37 MCHC 35.8 g/dL (32.0-36.0) 08/06/22 01:37 RDW Std Deviation 42.5 fL (36.4-46.3) 08/06/22 01:37 RDW Coeff of Jose Juan 12.9 % (11.5-14.5) 08/06/22 01:37 Plt Count 235 K/uL (130-400) 08/06/22 01:37 MPV 9.6 fL (9.4-12.4) 08/06/22 01:37 Immature Gran % (Auto) 0.4 % 08/06/22 01:37 Neut % (Auto) 66.6 % 08/06/22 01:37 Lymph % (Auto) 22.3 % 08/06/22 01:37 [place] % (Auto) 8.4 % 08/06/22 01:37 Eos % (Auto) 1.8 % 08/06/22 01:37 Baso % (Auto) 0.5 % 08/06/22 01:37 Neut # (Auto) 3.73 K/uL (1.4-6.5) 08/06/22 01:37 Lymph # (Auto) 1.25 K/uL (1.2-3.4) 08/06/22 01:37 [place] # (Auto) 0.47 K/uL (0.24-0.82) 08/06/22 01:37 Eos # (Auto) 0.10 K/uL (0-0.50) 08/06/22 01:37 Baso # (Auto) 0.03 K/uL (0-0.2) 08/06/22 01:37 Immature Gran # (Auto) 0.02 K/uL (0.00-0.02) 08/06/22 01:37 PT 11.8 Seconds (9.0-12.0) 08/05/22 20:13 INR 1.1 (0.9-1.1) 08/05/22 20:13 Sodium 136 mmol/L (136-145) 08/06/22 01:37 Potassium 4.1 mmol/L (3.5-5.1) 08/06/22 01:37 Chloride 101 mmol/L (98-107) 08/06/22 01:37 Carbon Dioxide 29 mmol/L (21-32) 08/06/22 01:37 Anion Gap 6 (3-11) 08/06/22 01:37 BUN 53 mg/dl (6-23) H 08/06/22 01:37 Creatinine 3.66 mg/dl (0.6-1.4) H 08/06/22 01:37 Est Cr Clr Drug Dosing 20.4 ml/min 08/06/22 01:37 Est GFR ( Amer) 18.5 ml/min 08/06/22 01:37 Est GFR (Non-Af Amer) 15.9 ml/min 08/06/22 01:37 BUN/Creatinine Ratio 14.5 (10-20) 08/06/22 01:37 Glucose 135 mg/dl (70-99(Fasting)) H 08/06/22 01:37 POC Glucose 140 mg/dl (70-99) H 08/06/22 07:28 Estimat Average Glucose 137 mg/dl 08/06/22 01:37 Hemoglobin A1c 6.4 % (4.5-5.6) H 08/06/22 01:37 Calcium 13.6 mg/dl (8.5-10.1) H* 08/06/22 01:37 Ionized Calcium 1.82 mmol/L (1.12-1.32) H* 08/06/22 01:36 Phosphorus 4.6 mg/dl (2.5-4.9) 08/06/22 01:36 Magnesium 1.7 mg/dl (1.7-2.4) 08/06/22 01:36 Total Bilirubin 0.7 mg/dl (0.2-1.0) 08/05/22 20:13 AST 14 U/L (13-39) 08/05/22 20:13 ALT 17 U/L (7-52) 08/05/22 20:13 Alkaline Phosphatase 119 U/L (34-104) H 08/05/22 20:13 Troponin I High Sens 40.9 pg/ml (0-20) H D 08/06/22 01:36 Total Protein 7.0 gm/dl (6.0-8.3) 08/05/22 20:13 Albumin 3.7 gm/dl (3.4-5.0) 08/06/22 01:36 Globulin 2.9 gm/dl (2.5-4.0) 08/05/22 20:13 Albumin/Globulin Ratio 1.4 (0.9-2) 08/05/22 20:13 Lipase 6 U/L (11-82) L 08/05/22 20:13 25-OH Vitamin D Total 77.9 ng/ml (30-100) 08/06/22 01:36 PTH Intact 51.4 pg/ml (12.0-88.0) 08/06/22 01:37 Urine Color Yellow 08/05/22 22:35 Urine Appearance Clear (Clear) 08/05/22 22:35 Urine pH 7.0 (4.5-7.5) 08/05/22 22:35 Ur Specific St[place] 1.010 (1.000-1.030) 08/05/22 22:35 Urine Protein 1+ (Negative) H 08/05/22 22:35 Urine Glucose (UA) Negative (Negative) 08/05/22 22:35 Urine Ketones Negative (Negative) 08/05/22 22:35 Urine Blood Trace (Negative) H 08/05/22 22:35 Urine Nitrite Negative (Negative) 08/05/22 22:35 Urine Bilirubin Negative (Negative) 08/05/22 22:35 Urine Urobilinogen Negative (Negative) 08/05/22 22:35 Ur Leukocyte Esterase Negative (Negative) 08/05/22 22:35 Urine WBC (Auto) 1-5 /hpf (0-5) 08/05/22 22:35 Urine RBC (Auto) 0-4 /hpf (0-4) 08/05/22 22:35 U Hyaline Cast (Auto) 1-5 /lpf (0-5) 08/05/22 22:35 U Epithel Cells (Auto) 10-20 /lpf (0-5) H 08/05/22 22:35 Urine Bacteria (Auto) Negative (Negative) 08/05/22 22:35 SARS-CoV-2, RNA, NAAT NEGATIVE (NEGATIVE) 08/05/22 21:[address] 08/05/22 21:08 CT chest diagnostic wo con CT DOSE: 1150.27 mGy.cm HISTORY: L rib pain, L1 fx, pelvic lesion = Cr 3.75 TECHNIQUE: Multiaxial CT images of the chest were performed without contrast. A dose lowering technique was utilized adhering to the principles of ALARA. COMPARISON: Chest CTA 10/07/2020. FINDINGS: There are multiple lytic/destructive lesion seen scattered throughout the spine, ribs, manubrium, right clavicle, and left scapula consistent with metastatic disease. There are pathologic fractures involving the right medial clavicle and left seventh rib. The abdominal structures will be reported on the same day abdomen and pelvis CT. No pleural or pericardial effusions. The heart is normal in size. Normal caliber esophagus and thoracic aorta. Mild elevation of the right hemidiaphragm. No mediastinal, hilar, or axillary lymphadenopathy. No pneumothorax. Trace mucoid material within the trachea. Mild dependent changes seen at the lung bases. A stable 5 no new pulmonary nodules identified. Mm nodule within the left lower lobe on image 171. IMPRESSION: 1. Multiple scattered lytic/destructive osseous lesions as described above consistent with metastatic disease. These result in pathologic fractures of the right medial clavicle and left seventh rib. No pneumothorax 2. Stable 5 mm nodule within the left lower lobe. No new pulmonary nodules identified. 3. The abdominal structures will be reported separately. ACT 112: Negative or not required by law. Electronically signed by: Keshawn Manzo M.D. 08/06/2022 7:40 AM Abdomen/Pelvis CT 08/05/22 21:[address] WITHOUT CONTRAST HISTORY: Acute left-sided flank pain in a patient with history of known osteolytic lesions L rib pain, L1 fx, pelvic lesion = Cr 3.75 TECHNIQUE: Multiaxial CT images of the abdomen and pelvis were performed without contrast. A dose lowering technique was utilized adhering to the principles of ALARA. COMPARISON STUDY: Chest CT of same day, CT lumbar spine August 02, 2022 FINDINGS: Moderate coronary artery calcifications. Unchanged right hemidiaphragmatic elevation. Stable 5 mm nodule within the left lower lobe, image 65. No pneumatosis or pneumoperitoneum. The unenhanced spleen, dystrophic pancreas and adrenal glands are unremarkable. Cholelithiasis. Indeterminate 1.5 cm lesion of the right hepatic lobe on image 16 series 3. This lesion appears stable from 10/07/2020 favoring a benign etiology. There are least 4 nonobstructing calculi of the right kidney measuring up to 5 mm. No ureteral calculi or hydronephrosis. Mild prostamegaly. Atherosclerosis of the aorta without aneurysm. No lymphadenopathy. No bowel obstruction or bowel wall thickening. Mild colonic diverticulosis. Noninflamed appendix. Tiny fat filled umbilical hernia. No ascites or mesenteric inflammation. Degenerative changes of the shoulders and spine. Multifocal osteolytic skeletal metastasis are again noted. Acute nondisplaced pathologic fracture of the posterolateral left seventh rib. Unchanged appearance of the acute L1 vertebral body fracture with 25% superior vertebral body height loss. No retropulsion. Additional large bony destruction the posterior medial left eighth rib with partial invasion into the adjacent neural foramen. Large osteolytic lesions of the pelvis are most pronounced in the left iliac wing with bony destruction. Additional lesions of the pelvic ring are most pronounced in the left inferior pubic ramus with areas of bony destruction. IMPRESSION: 1. Numerous osteolytic skeletal lesions are redemonstrated suggestive of metastasis versus multiple myeloma. 2. Acute nondisplaced pathologic fracture involving of the lateral left seventh rib with additional multifocal areas of bony destruction as above. 3. Unchanged appearance of the acute pathologic L1 fracture, stable from 08/02/2022. 4. No bowel obstruction or bowel wall thickening. 5. Right nephrolithiasis. 6. Cholelithiasis. ACT 112: Negative or not required by law. The above report was generated using voice recognition software. It may contain grammatical, syntax or spelling errors. Electronically signed by: Дмитрий Wooten M.D. 08/06/2022 7:53 AM PG Care Time/CCT Total # of Minutes Spent Total Time Spent with Patient: Total time spent is greater than 50% in coordination of care (as documented) at patient's floor/unit and/or counseling patient: Coding Level of Care Code 25327 SUB INP/OBS CARE MIN Diagnoses Hypercalcemia E83.52 Osteolytic lesion M89.50 Acute renal failure N17.9 Elevated troponin level R77.8 Closed L1 vertebral fracture S32.019A Hypertension I10 Type 2 diabetes mellitus E11.9 Dyslipidemia E78.5
--- NOTE | 2022-08-06 07:55 | CT Scan Report ---
ABDOMEN AND PELVIS CT WITHOUT CONTRAST HISTORY: Acute left-sided flank pain in a patient with history of known osteolytic lesions L rib kristina n, L1 fx, pelvic lesion = Cr 3.75 TECHNIQUE: Multiaxial CT images of the abdomen and pelvis were performed without contrast. A dose lo wering technique was utilized adhering to the principles of ALARA. COMPARISON STUDY: Chest CT of same day, CT lumbar spine August 02, 2022 FINDINGS: Moderate coronary artery calcifications. Unchanged right hemidiaphragmatic elevation. Stabl e 5 mm nodule within the left lower lobe, image 65. No pneumatosis or pneumoperitoneum. The unenhance d spleen, dystrophic pancreas and adrenal glands are unremarkable. Cholelithiasis. Indeterminate 1.5 cm lesion of the right hepatic lobe on image 16 series 3. This lesion appears stable from 10/07/2020 f avoring a benign etiology. There are least 4 nonobstructing calculi of the right kidney measuring up to 5 mm. No ureteral calcul i or hydronephrosis. Mild prostamegaly. Atherosclerosis of the aorta without aneurysm. No lymphadenop athy. No bowel obstruction or bowel wall thickening. Mild colonic diverticulosis. Noninflamed appendi x. Tiny fat filled umbilical hernia. No ascites or mesenteric inflammation. Degenerative changes of t he shoulders and spine. Multifocal osteolytic skeletal metastasis are again noted. Acute nondisplaced pathologic fracture of the posterolateral left seventh rib. Unchanged appearance of the acute L1 ivan tebral body fracture with 25% superior vertebral body height loss. No retropulsion. Additional large bony destruction the posterior medial left eighth rib with partial invasion into the adjacent neural foramen. Large osteolytic lesions of the pelvis are most pronounced in the left iliac wing with bony destruction. Additional lesions of the pelvic ring are most pronounced in the left inferior pubic nora us with areas of bony destruction. IMPRESSION: 1. Numerous osteolytic skeletal lesions are redemonstrated suggestive of metastasis versus multiple m yeloma. 2. Acute nondisplaced pathologic fracture involving of the lateral left seventh rib with additional m ultifocal areas of bony destruction as above. 3. Unchanged appearance of the acute pathologic L1 fracture, stable from 08/02/2022. 4. No bowel obstruction or bowel wall thickening. 5. Right nephrolithiasis. 6. Cholelithiasis. ACT 112: Negative or not required by law. The above report was generated using voice recognition software. It may contain grammatical, syntax o r spelling errors. Electronically signed by: Дмитрий Wooten M.D. 08/06/2022 7:53 AM
[2022-08-06] MEDS: INSULIN ASPART PER UNIT SC SCH ×4 (08:08→21:30)
[2022-08-06] MEDS ORDERED: hydroCHLOROthiazide 25 MG TAB PO SCH (09:00)
[2022-08-06] MEDS ORDERED: lisinopril 20 MG TAB PO SCH (09:00)
[2022-08-06] MEDS: METOPROLOL TARTRATE 50 MG TAB PO SCH ×2 (09:08→21:09)
[2022-08-06] MEDS: GLUCOSAMINE SULFATE 500 MG CAP PO SCH (09:08)
[2022-08-06] MEDS: ASPIRIN 81 MG ECTAB PO SCH (09:08)
--- NOTE | 2022-08-06 10:01 | Consultation ---
Date of Consultation August 06, 2022 Assessment & Plan (1) Osteolytic lesion: The combination of lytic bone lesions, hypercalcemia, and renal insufficiency in the absence of signs on body CT of another potential primary site (especially lacking any signs of renal, bladder, or lung mass) as well as noting that the patient is a non-smoker certainly strongly point towards the possibility of multiple myeloma. Indeed, any 1 of those 3 presenting features would be definitional of myeloma so long as there is a plasma cell clone confirmed. In time, that would require biopsy of one of the lesions and/or "blind" bone marrow biopsy but just the identification of a significant monoclonal protein would be sufficient for presumptive diagnosis. Urine protein electrophoresis and serum protein electrophoresis have already been ordered. I will add to that quantitative immunoglobulins and kappa/lambda light chain assessments as well. I do note that there is not a dramatic elevation of the total protein or globulin levels. There is a possibility of a "nonsecretory "myeloma as well such that the absence of demonstrated monoclonal protein will not exclude that diagnosis. Immediate management should be focused on addressing the hypercalcemia and pain and renal insufficiency. Hospitalist team has already appropriately undertaken the initial administration of a bisphosphonate and continues with hydration, calcitonin, and pain management. Wouldl incorporate orthopedics review to assess for any instability of the lytic lesions that might require acute stabilization. So long as initial response of calcium levels and renal function is achieved, obtaining additional biopsy material will be a semielective and perhaps even outpatient process. If we confirm the presence of a monoclonal protein, we can give an empiric course of dexamethasone even as we await that final definition to begin cytoreduction/stabilization of presumed myeloma. Plan Immediate priorities are addressing the hypercalcemia and acute renal insufficiency as you are already doing. Consider orthopedics review to identify any lytic bone lesions that might warrant fixation and stabilization If there are discrete areas of pain not easily relieved pharmacologically, could consider empiric radiation If a monoclonal protein is confirmed, will consider an empiric short course of high-dose steroids to stabilize Will require definitive biopsy definition with sampling either from one of the bone lesions or a more standard blind bone marrow biopsy but those will likely be pursued as an outpatient Has already received 1 dose of bisphosphonates. Will require long-term bone directed therapy though if his calcium stabilizes that would continue on a every 4 week basis History of Present Illness Reason for Consultation: Patient presenting with hypercalcemia, multiple skeletal lytic lesions, and acute renal insufficiency. Attending Physician: Kunal Dorman MD History of Present Illness This is an electronic consultation based on review of the record in [employer]. I am not able to examine the patient or speak with him directly but the database provides ample information for initial assessment and recommendation. Allergies Allergy/AdvReac Type Severity Reaction Status Date / Time amoxicillin [From Augmentin] Allergy Intermediate SWELLING Verified 08/05/22 21:54 AROUND EYES clavulanic acid Allergy Intermediate SWELLING Verified 08/05/22 21:54 AROUND THE EYES Penicillins Allergy Intermediate AUGMENTIN Verified 08/05/22 21:54 - SWELLING AROUND THE EYES diflunisal AdvReac Intermediate VOMITING Verified 08/05/22 21:54 valsartan [From Diovan] AdvReac Intermediate Vomiting Verified 08/05/22 21:54 Home Medications Medication Instructions Recorded Confirmed Type aspirin 81 mg tablet,delayed 81 mg PO DAILY 05/22/19 08/05/22 History release atorvastatin 40 mg tablet (Lipitor) 40 mg PO HS 08/09/19 08/05/22 History hydrochlorothiazide 12.5 mg capsule 12.5 mg PO DAILY 09/16/19 08/05/22 History lisinopril 20 mg tablet 20 mg PO DAILY 09/16/19 08/05/22 History metformin 500 mg tablet See Rx Instructions .Route .COMPLEX 09/16/19 08/05/22 History pen needle, diabetic 32 gauge x #100 ea 10/23/19 05/17/22 Rx 5/32" (BD Ultra-Fine Augustina Pen Needle) cholecalciferol (vitamin D3) 25 1,000 units PO DAILY 01/27/20 08/05/22 History mcg (1,000 unit) tablet multivitamin (Multiple Vitamins 1 tab PO DAILY 01/27/20 08/05/22 History tablet) glucosamine HCl 500 mg tablet 500 mg PO DAILY 08/20/20 08/05/22 History metoprolol tartrate 50 mg tablet 50 mg PO BID #180 tabs 11/16/21 08/05/22 Rx insulin degludec 100 unit/mL (3 33 unit (0.33 mL) subcut HS #2 04/05/22 08/05/22 Rx mL) subcutaneous pen (Tresiba Boxes FlexTouch U-100 insulin) semaglutide 2 mg/dose (8 mg/3 mL) 2 mg (0.75 mL) subcut Q7D #3 mL 05/03/22 08/05/22 Rx subcutaneous pen injector blood sugar diagnostic (Accu-Chek #100 ea 05/23/22 Rx Josephine Plus test strips) oxycodone 5 mg tablet 5 mg PO Q6H severe pain #12 tabs 08/02/22 08/05/22 Rx lidocaine 5 % topical patch 1 patch topical DAILY #15 ea 08/03/22 08/05/22 Rx diclofenac sodium 75 mg 75 mg PO BID PRN Pain 08/05/22 08/05/22 History tablet,delayed release Patient History Medical History Bronchitis Chest pain Dyslipidemia GE reflux Gout Hypertension Laceration of multiple sites of left hand and fingers Obstructive sleep apnea Tendon laceration Type 2 diabetes mellitus Vitamin D deficiency Surgical History History of surgery on arm Family History Father Alzheimer disease Dyslipidemia Mother Diabetes Coronary heart disease Other Family history non-contributory Social History Smoking Status: Never smoker Second Hand Exposure: No; Do You Dip or Chew Tobacco: No; Tobacco Cessation Education Requested by Patient: No Hx Alcohol Use: No Hx Substance Use: No Preferred Language: Czech Communication Ability: Effective Assistant [employer] Required: No Beliefs That Will Affect Care: None marital status: Single marital status details: no children Current Living Situation: Alone current occupational status: retired Other Information That Helps Us Care for You: No Feels Safe at Home: Yes Safety Concerns: Feels Safe At This Time Assistive Devices: CPAP Physical Exam Physical Exam: VSS noting a moderate elevation of both systolic and diastolic blood pressure but otherwise patient is afebrile, oxygenating well and not tachycardic. Results & Data ([facility]) Vital Signs (Past 12 Hours) Vital Signs Temp Pulse Resp BP Pulse Ox Pulse Ox O2 Del Method 08/06/22 07:45 36.4 C L 84 H 176/100 H 96 Room Air 08/06/22 05:40 36.6 C 80 16 152/84 H 96 Room Air 08/06/22 01:59 99 H 16 156/88 H 97 Room Air 08/06/22 01:00 36.5 C 101 H 18 168/102 H 98 Room Air 08/06/22 01:04 98 08/06/22 00:00 100 H 20 177/109 H 98 Room Air 08/05/22 22:12 98 Room Air 08/05/22 22:11 93 H 18 163/87 H 98 Room Air O2 Del Method 08/06/22 07:45 08/06/22 05:40 08/06/22 01:59 08/06/22 01:00 08/06/22 01:04 Room Air 08/06/22 00:00 08/05/22 22:12 08/05/22 22:11 PG Care Time/CCT Total # of Minutes Spent Total Time Spent with Patient: Total time spent is greater than 50% in coordination of care (as documented) at patient's floor/unit and/or counseling patient: Coding Level of Care Code INP/OBS CONSULT LVL 2, 35 MIN Diagnoses Osteolytic lesion M89.50
[2022-08-06 10:38] LABS: BUN Creatinine Ratio 14.6 (10-20); Calcium 13.8 mg/dl (8.5-10.1); Est GFR (African American) 19.2 ml/min; Est GFR (Non-African American) 16.5 ml/min
[2022-08-06 10:51] LABS: Immunoglobulin A 43.5 mg/dl (70-400); Immunoglobulin G 455.6 mg/dl (635-1741); Immunoglobulin M < 20.0 mg/dl (45-281)
[2022-08-06] MEDS ORDERED: CALCITONIN SALMON 400 UNITS/2 ML SQ ONE (11:00)
[2022-08-06 15:24] LABS: Anion Gap 8 (3-11); BUN Creatinine Ratio 14.7 (10-20); Blood Urea Nitrogen 50 mg/dl (6-23); Calcium 13.4 mg/dl (8.5-10.1); Carbon Dioxide 25 mmol/L (21-32); Chloride 107 mmol/L (98-107); Creatinine Clr Calc Pharmacy 21.9 ml/min; Est GFR (African American) 20.1 ml/min; Est GFR (Non-African American) 17.4 ml/min; Glucose 142 mg/dl (70-99(Fasting)); Sodium 140 mmol/L (136-145)
[2022-08-06] MEDS: CALCITONIN SALMON 400 UNITS/2 ML SQ SCH (21:09)
[2022-08-06] MEDS: HEPARIN SOD 5,000 UNIT/0.5 ML VIAL SQ SCH (21:09)
[2022-08-06] MEDS: ATORVASTATIN 40 MG TAB PO SCH (21:09)
[2022-08-06 21:53] LABS: BUN Creatinine Ratio 14.4 (10-20); Calcium 11.7 mg/dl (8.5-10.1); Creatinine Clr Calc Pharmacy 22.4 ml/min; Est GFR (African American) 20.7 ml/min; Est GFR (Non-African American) 17.9 ml/min; Potassium 4.1 mmol/L (3.5-5.1)
--- NOTE | 2022-08-07 04:11 | Billing Data ---
Date of Service August 07, 2022 Coding Level of Care Code 59684 INT INP/OBS CARE
[2022-08-07] MEDS: SODIUM CHLORIDE 0.9% 1000ML 1,000 ML IV SCH ×3 (05:06→17:07)
[2022-08-07 07:10] LABS: Hematocrit (blood only) 34.9 % (40.1-51.0); Hemoglobin 12.9 g/dl (14.0-18.0); Mean Corpuscular Hemoglobin 32.7 pg (25.0-34.0); Mean Corpuscular Volume 88.4 fL (80.0-100.0); Mean Platelet Volume 9.9 fL (9.4-12.4); Platelet Count 264 K/uL (130-400); RDW Coefficient of Variation 12.9 % (11.5-14.5); RDW Standard Deviation 42.1 fL (36.4-46.3); Red Blood Count 3.95 M/uL (4.63-6.08); White Blood Count 6.41 K/ul (4.8-10.8)
--- NOTE | 2022-08-07 07:21 | Hospitalist Progress Note ---
Date of Service August 07, 2022 Assessment & Plan (1) Metabolic encephalopathy: Plan: Haroon is a 67 year old male w/ PMHx of T2DM on insulin, L1 vertebral compression fracture, AZAR, vitamin D deficiency, GERD, gout, HTN admitted for hypercalcemia with concern for underlying malignancy (MM vs. metastatic disease with unknown primary). Metabolic encephalopathy: - Increasingly confused overnight in the setting of hypercalcemia and YOSI, these are most likely causes. - No focal neurologic deficits (strength of all limbs intact, no facial droop, no slurred speech) and able to have conversations in periods of lucency. - UTox ordered. - Patient given Ativan and Haldol earlier today due to pulling out IV lines, trying to remove medical equipment, combative with staff. - Consider CT Head, however would consider IV contrast given unknown primary cancer, and would defer contrast for now given ARF. (2) Hypercalcemia: Plan: -Calcium 14.5 on admission -> 11.1 this morning with ICal 1.50. -Calcium 8-9 previous admissions. -Given 1 bolus of NSS in ED -> has been on NSS at 125cc/hr, continue. -PTH normal, Mg 1.7, Phos 4.6. -PTHrP/Vit-D 25 hydroxy/Vit D 1,25 Dihydroxy levels pending. -UA no evidence of infection. -Suspect metastatic cancer vs. multiple myeloma. Unclear primary at this time. -Oncology consulted; ultimately may need tissue biopsy of lesions for clarification. IgG, IgA, IgM not elevated. SPEP/UPEP pending. -Given Pamidronate 60mg IV x1. Continue Calcitonin BID. -Nephrology also consulted and appreciate recommendations. -Admitted to PCU, continuous cardiac monitoring. Daily EKGs. (3) Acute renal failure: Plan: -Creatinine 3.75 on admission -> 3.11 this morning. -Baseline creatinine 1.2-1.4. -Most likely secondary to hypercalcemia. -Continue IV fluids as above. (4) Closed L1 vertebral fracture: Plan: -Ongoing back pain since generator heavy load incident at work mid June. -CT Lumbar spine from 08/02 with evidence of L1 endplate compression fracture with mild loss of height, as well as acute nondisplaced pathologic fracture of lateral 7th rib. Has scheduled appointment w/ Dr. Dnucan 09/02. -Ortho consulted this admission for eval of osteolytic lesions ->Tumor biopsy can be deferred until after his mental status improves, and recommendation made for Ortho Oncology if bone biopsy needed (such as Dr. Eris Armstrong at [facility]). -Tylenol/morphine as needed for pain. (5) Lytic bone lesion of hip: Plan: -Noted on CT imaging to have multiple scattered lytic/destructive lesions consistent with metastatic disease. -Same plan as above. Questionable underlying malignancy, unclear primary at this time. -Will need CT Head with contrast to eval for brain lesions, however will defer for now given significant YOSI. (6) Acute back pain: Plan: see above (7) Elevated troponin level: Plan: -Troponin 26.9 on admission, has since downtrended. -Suspect due to poor clearance from YOSI. (8) Fatigue: Plan: -Most likely due to hypercalcemia. Has been trending down since August (14.9 at that time), however no evidence of bleeding from any source. -Stool Hemoccult ordered. (9) Hypertension: Plan: -Continue home lisinopril, metoprolol, HCTZ when taking PO. -For now, labetalol 10mg IV q8h ordered as needed for BP >180 systolic. (10) Dyslipidemia: Plan: -Continue home atorvastatin and baby aspirin. (11) Type 2 diabetes mellitus: Plan: -Takes basal insulin at home 33U daily. Holding remaining home DM2 medications. -Lantus 17U BID (patient refused dose this morning during agitated period), SSI while inpatient with BSG checks qACHS. -A1c 6.4%. Plan F/E/N/GI: Carb Consistent DVT Prophylaxis: Heparin 5000u SQ BID Code status: Full code. Patient would not like for sustained measures if unable to obtain ROSC after 1 round of CPR, and would not want more than one spontaneous trial of breathing if intubated. Dispo: PCU/Tele for continuous monitoring given hypercalcemia. Admission and Anticipated Discharge Date Admission Date: August 05, 2022 Subjective Overnight patient confused, wanting to leave AMA to go to [facility]. Discussed the in- transit risks that both he and his friend were assuming in doing that, patient decided to stay for now. This morning very confused and agitated with staff, given Ativan without improvement, trying to climb out of bed and hit nurse. Was then given Haldol 5mg IM with relief of agitation. Has periods of lucency mixed with periods of confusion. Review of Systems Review of Systems: All systems reviewed & are unremarkable except as noted in Subjective Physical Exam Constitutional: WD/WN, vitals as above Respiratory: normal respiratory effort, lungs clear to auscultation Cardiovascular: RRR, no murmur, no edema Gastrointestinal (Abdomen): normal bowel sounds, soft, nontender, no hepatosplenomegaly Skin: no rashes, warm and dry Psychiatric: Orientation: alert; + not oriented x 3 Results & Data Results & Data ([facility]) Vital Signs (Past 12 Hours) Vital Signs Temp Pulse Pulse Pulse Resp BP BP 08/07/22 07:13 36.5 C 112 H 110 H 22 187/115 H 08/07/22 01:00 08/07/22 03:27 36.6 C 87 20 155/98 H 08/06/22 22:28 95 H 08/06/22 23:32 36.6 C 88 20 171/105 H 08/06/22 19:30 Pulse Ox Pulse Ox O2 Del Method O2 Del Method 08/07/22 07:13 92 Room Air 08/07/22 01:00 96 Room Air 08/07/22 03:27 96 Room Air 08/06/22 22:28 08/06/22 23:32 94 Room Air 08/06/22 19:30 Room Air PG Care Time/CCT Total # of Minutes Spent Total Time Spent with Patient: Total time spent is greater than 50% in coordination of care (as documented) at patient's floor/unit and/or counseling patient: Coding Level of Care Code 00311 SUB INP/OBS CARE 3/50MIN Diagnoses Metabolic encephalopathy G93.41 Hypercalcemia E83.52 Acute renal failure N17.9 Closed L1 vertebral fracture S32.019A Lytic bone lesion of hip M89.8X5 Acute back pain M54.9 Elevated troponin level R77.8 Fatigue R53.83 Hypertension I10 Dyslipidemia E78.5 Type 2 diabetes mellitus E11.9
[2022-08-07] MEDS ORDERED: LORazepam 2 MG/1 ML VIAL IV STA (07:24)
[2022-08-07 07:33] LABS: BUN Creatinine Ratio 14.1 (10-20); Calcium 11.1 mg/dl (8.5-10.1); Creatinine Clr Calc Pharmacy 23.7 ml/min; Est GFR (African American) 22.5 ml/min; Est GFR (Non-African American) 19.4 ml/min; Potassium 3.7 mmol/L (3.5-5.1)
[2022-08-07 08:28] LABS: Amphetamines+Metham, Urine Neg (Neg); Barbiturates, Urine Neg (Neg); Benzodiazepine, Urine Neg (Neg); Cocaine, Urine Neg (Neg); MDMA (Ecstacy), Urine Neg (Neg); Methadone, Urine Neg (Neg); Opiate, Urine Neg (Neg); Phencyclidine, Urine Neg (Neg)
--- NOTE | 2022-08-07 08:52 | Nephrology Consultation ---
Date of Consultation August 07, 2022 Assessment & Plan (1) Hypercalcemia: * Non-PTH mediated hypercalcemia. Elevated alkaline phosphatase. Hypercalcemia is likely due to underlying malignancy/metastatic disease * Primary service has already administered IVF, Calcitonin and Pamidronate * Continue current management, monitor serum Ca (2) Acute renal failure: * Clinically dehydrated * No obstruction on 08/05/[address] * Urine sediment is negative for blood or cellular casts * Continue IV hydration, monitor PRP (3) Hypertension: * Recommend IV Labetalol for BP management since patient is not currently taking po medications per senior staff accountant (4) Metabolic encephalopathy: * Patient is not significantly azotemic and currently has only moderate hypercalcemia. He is clinically volume contracted and not hypoxemic * Recommend minimizing sedatives/pain medications * Consider head CT/MRI to assess for metastatic disease * Obtain blood and urine cultures if febrile History of Present Illness Reason for Consultation: Hypercalcemia, YOSI Attending Physician: Ana Scott, DO History of Present Illness Mr. Adams is a 67 year old white male who is seen at the request of the hospitalist service for evaluation of hypercalcemia and YOSI. Mr. Adams is currently oriented to self only and agitated. He was unable to provide details of his medical history. History was obtained from the EMR and is summarized as follows: CKD stage G3a/A1 (moderate impairment). Baseline Cr 1.27 05/21 w/ EGFR 58 cc/min. 09/21 urine microalbumin/Cr ratio 13. 08/[address] negative for hydronephrosis. PMH significant for HTN, AODM, gout, GERD, AZAR, and dyslipidemia. Mr. Adams was admitted to [facility] 08/05/22 for evaluation of back pain. Evaluation revealed an L1 compression fracture, numerous osteolytic skeletal lesions (ribs, vertebra, pelvis), nonobstructing kidney stones, Ca 14.5, Cr 3.75. Mr. Adams has been evaluated by Oncology. They have raised concern for multiple myeloma. Recommendation was to treat hypercalcemia and correct YOSI and bone marrow biopsy could be performed as outpatient. Mr. Adams has already received IV hydration, calcitonin and pamidronate. Ca has improved to 11.9 and Cr 3.24. Allergies Allergy/AdvReac Type Severity Reaction Status Date / Time amoxicillin [From Augmentin] Allergy Intermediate SWELLING Verified 08/05/22 21:54 AROUND EYES clavulanic acid Allergy Intermediate SWELLING Verified 08/05/22 21:54 AROUND THE EYES Penicillins Allergy Intermediate AUGMENTIN Verified 08/05/22 21:54 - SWELLING AROUND THE EYES diflunisal AdvReac Intermediate VOMITING Verified 08/05/22 21:54 valsartan [From Diovan] AdvReac Intermediate Vomiting Verified 08/05/22 21:54 Home Medications Medication Instructions Recorded Confirmed Type aspirin 81 mg tablet,delayed 81 mg PO DAILY 05/22/19 08/05/22 History release atorvastatin 40 mg tablet (Lipitor) 40 mg PO HS 08/09/19 08/05/22 History hydrochlorothiazide 12.5 mg capsule 12.5 mg PO DAILY 09/16/19 08/05/22 History lisinopril 20 mg tablet 20 mg PO DAILY 09/16/19 08/05/22 History metformin 500 mg tablet See Rx Instructions .Route .COMPLEX 09/16/19 08/05/22 History pen needle, diabetic 32 gauge x #100 ea 10/23/19 05/17/22 Rx 532" (BD Ultra-Fine Augustina Pen Needle) cholecalciferol (vitamin D3) 25 1,000 units PO DAILY 01/27/20 08/05/22 History mcg (1,000 unit) tablet multivitamin (Multiple Vitamins 1 tab PO DAILY 01/27/20 08/05/22 History tablet) glucosamine HCl 500 mg tablet 500 mg PO DAILY 08/20/20 08/05/22 History metoprolol tartrate 50 mg tablet 50 mg PO BID #180 tabs 11/16/21 08/05/22 Rx insulin degludec 100 unit/mL (3 33 unit (0.33 mL) subcut HS #2 04/05/22 08/05/22 Rx mL) subcutaneous pen (Tresiba Boxes FlexTouch U-100 insulin) semaglutide 2 mg/dose (8 mg/3 mL) 2 mg (0.75 mL) subcut Q7D #3 mL 05/03/22 08/05/22 Rx subcutaneous pen injector blood sugar diagnostic (Accu-Chek #100 ea 05/23/22 Rx Josephine Plus test strips) oxycodone 5 mg tablet 5 mg PO Q6H severe pain #12 tabs 08/02/22 08/05/22 Rx lidocaine 5 % topical patch 1 patch topical DAILY #15 ea 08/03/22 08/05/22 Rx diclofenac sodium 75 mg 75 mg PO BID PRN Pain 08/05/22 08/05/22 History tablet,delayed release Patient History Medical History Bronchitis Chest pain Dyslipidemia GE reflux Gout Hypertension Laceration of multiple sites of left hand and fingers Obstructive sleep apnea Tendon laceration Type 2 diabetes mellitus Vitamin D deficiency Surgical History History of surgery on arm Family History Father Alzheimer disease Dyslipidemia Mother Diabetes Coronary heart disease Other Family history non-contributory Social History Smoking Status: Never smoker Second Hand Exposure: No; Hx Alcohol Use: No Hx Substance Use: No Preferred Language: Welsh Communication Ability: Effective Ribbon Blocker Required: No Beliefs That Will Affect Care: None marital status: Single marital status details: no children Current Living Situation: Alone current occupational status: retired Feels Safe at Home: Yes Assistive Devices: CPAP Review of Systems Review of Systems: Unobtainable due to cognitive status Physical Exam Constitutional: + ill appearing Eyes: PERRL, conjunctivae normal, anicteric sclerae ENMT: Mouth: + dry oral mucous membranes Neck: trachea midline, no thyromegaly Respiratory: normal respiratory effort, lungs clear to auscultation Cardiovascular: Rate/Rhythm: regular rhythm and + tachycardic Gastrointestinal (Abdomen): Inspection/Auscultation: abdomen normal to inspection Percussion/Palpation: + abdomen tender (bilateral lower quadrants) Neurologic: Speech / Cognition: + abnormal cognition; normal speech Results & Data ([facility]) Vital Signs (Past 12 Hours) Vital Signs Temp Pulse Pulse Pulse Resp BP BP 08/07/22 07:13 36.5 C 112 H 110 H 22 187/115 H 08/07/22 01:00 08/07/22 03:27 36.6 C 87 20 155/98 H 08/06/22 22:28 95 H 08/06/22 23:32 36.6 C 88 20 171/105 H Pulse Ox Pulse Ox O2 Del Method O2 Del Method 08/07/22 07:13 92 Room Air 08/07/22 01:00 96 Room Air 08/07/22 03:27 96 Room Air 08/06/22 22:28 08/06/22 23:32 94 Room Air Laboratory Results Laboratory Tests 09/13/21 05/17/22 08/05/22 15:07 15:12 20:13 WBC Hgb Hct Plt Count Sodium Potassium Chloride Carbon Dioxide BUN Creatinine 1.27 3.75 H Glucose Calcium 14.5 H* AST 14 ALT 17 Alkaline Phosphatase 119 H Albumin PEP Interpretation 25-OH Vitamin D Total Vit D 1,25-Dihyd Total 1,25 Dihydroxy Vit D2 1,25 Dihydroxy Vit D3 PTH Intact PTH Related Protein Urine Color Ur Specific [place] Urine Protein Urine Blood Ur Leukocyte Esterase Urine RBC (Auto) Microalb/Creat Ratio 13 Free [place]/Lambda Ratio SARS-CoV-2, RNA, NAAT 08/05/22 08/05/22 08/06/22 21:18 22:35 01:36 WBC Hgb Hct Plt Count Sodium Potassium Chloride Carbon Dioxide BUN Creatinine Glucose Calcium AST ALT Alkaline Phosphatase Albumin 3.7 PEP Interpretation 25-OH Vitamin D Total Vit D 1,25-Dihyd Total 1,25 Dihydroxy Vit D2 1,25 Dihydroxy Vit D3 PTH Intact PTH Related Protein Urine Color Yellow Ur Specific [place] 1.010 Urine Protein 1+ H Urine Blood Trace H Ur Leukocyte Esterase Negative Urine RBC (Auto) 0-4 Microalb/Creat Ratio Free [place]/Lambda Ratio SARS-CoV-2, RNA, NAAT NEGATIVE 08/06/22 08/06/22 08/06/22 01:36 01:36 01:36 WBC Hgb Hct Plt Count Sodium Potassium Chloride Carbon Dioxide BUN Creatinine Glucose Calcium AST ALT Alkaline Phosphatase Albumin PEP Interpretation 25-OH Vitamin D Total 77.9 Vit D 1,25-Dihyd Total Pending 1,25 Dihydroxy Vit D2 Pending 1,25 Dihydroxy Vit D3 Pending PTH Intact PTH Related Protein Pending Urine Color Ur Specific [place] Urine Protein Urine Blood Ur Leukocyte Esterase Urine RBC (Auto) Microalb/Creat Ratio Free [place]/Lambda Ratio Pending SARS-CoV-2, RNA, NAAT 08/06/22 08/06/22 08/07/22 01:37 21:06 06:41 WBC Hgb Hct Plt Count Sodium Potassium Chloride Carbon Dioxide BUN Creatinine 3.33 H Glucose Calcium AST ALT Alkaline Phosphatase Albumin PEP Interpretation Pending 25-OH Vitamin D Total Vit D 1,25-Dihyd Total 1,25 Dihydroxy Vit D2 1,25 Dihydroxy Vit D3 PTH Intact 51.4 PTH Related Protein Urine Color Ur Specific [place] Urine Protein Urine Blood Ur Leukocyte Esterase Urine RBC (Auto) Microalb/Creat Ratio Free [place]/Lambda Ratio SARS-CoV-2, RNA, NAAT 08/07/22 08/07/22 06:41 06:41 WBC 6.41 Hgb 12.9 L Hct 34.9 L Plt Count 264 Sodium 139 Potassium 3.7 Chloride 107 Carbon Dioxide 24 BUN 44 H Creatinine 3.11 H Glucose 103 H Calcium 11.1 H AST ALT Alkaline Phosphatase Albumin PEP Interpretation 25-OH Vitamin D Total Vit D 1,25-Dihyd Total 1,25 Dihydroxy Vit D2 1,25 Dihydroxy Vit D3 PTH Intact PTH Related Protein Urine Color Ur Specific [place] Urine Protein Urine Blood Ur Leukocyte Esterase Urine RBC (Auto) Microalb/Creat Ratio Free [place]/Lambda Ratio SARS-CoV-2, RNA, NAAT Diagnostic Findings CXR 08/05/22: 1. There is an osteolytic lesion in the left iliac wing. This is highly suspicious for bony metastatic disease. Correlate with the patient's oncological history. 2. There is an acute superior endplate compression fracture of L1 with mild loss of height. No significantly retropulsed fragments are seen. 3. No additional acute fracture is identified. 4. Degenerative disc disease as above. CHEST CT 08/05/22: 1. Multiple scattered lytic/destructive osseous lesions as described above consistent with metastatic disease. These result in pathologic fractures of the right medial clavicle and left seventh rib. No pneumothorax 2. Stable 5 mm nodule within the left lower lobe. No new pulmonary nodules identified. 3. The abdominal structures will be reported separately. ABD CT 08/05/22: There are least 4 nonobstructing calculi of the right kidney measuring up to 5 mm. No ureteral calculi or hydronephrosis. Mild prostamegaly. 1. Numerous osteolytic skeletal lesions are redemonstrated suggestive of metastasis versus multiple myeloma. 2. Acute nondisplaced pathologic fracture involving of the lateral left seventh rib with additional multifocal areas of bony destruction as above. 3. Unchanged appearance of the acute pathologic L1 fracture, stable from 08/02/2022. 4. No bowel obstruction or bowel wall thickening. 5. Right nephrolithiasis. 6. Cholelithiasis. PG Care Time/CCT Total # of Minutes Spent Total Time Spent with Patient: Total time spent is greater than 50% in coordination of care (as documented) at patient's floor/unit and/or counseling patient: Coding Level of Care Code INP/OBS CONSULT LVL 5, 80 MIN Diagnoses Hypercalcemia E83.52 Acute renal failure N17.9 Hypertension I10 Metabolic encephalopathy G93.41
[2022-08-07] MEDS: INSULIN ASPART PER UNIT SC SCH ×4 (09:10→20:01)
[2022-08-07 09:48] LABS: BUN Creatinine Ratio 14.2 (10-20); Calcium 11.9 mg/dl (8.5-10.1); Creatinine Clr Calc Pharmacy 22.8 ml/min; Est GFR (African American) 21.4 ml/min; Est GFR (Non-African American) 18.5 ml/min; Potassium 4.8 mmol/L (3.5-5.1)
[2022-08-07] MEDS ORDERED: MoRPHine SULFATE 2 MG/ML CARP IV PRN (10:25)
[2022-08-07] MEDS ORDERED: METOPROLOL TARTRATE 1 MG/ML VIAL IV ONE (10:45)
[2022-08-07] MEDS: ASPIRIN 81 MG ECTAB PO SCH (10:46)
[2022-08-07] MEDS: METOPROLOL TARTRATE 50 MG TAB PO SCH (11:08)
[2022-08-07] MEDS: amLODIPine BESYLATE 5 MG TAB PO SCH (11:08)
[2022-08-07] MEDS: GLUCOSAMINE SULFATE 500 MG CAP PO SCH (11:08)
--- NOTE | 2022-08-07 11:09 | Orthopedic Consultation ---
Date of Consultation August 07, 2022 Assessment & Plan (1) Osteolytic lesion: He has 3 separate osteolytic lesions in the left hemipelvis; 2 in the ilium and 1 in the inferior pubic ramus. None of these appear to involve the weightbearing portion of the pelvis. No lesion seen in the left proximal femur. Given his current mental state, it is unknown whether these are even painful for him or if he has any pain with weightbearing, but given the location of these lesions, I would presume not. These certainly appear consistent with metastatic lesions rather than a primary bone tumor. He is currently being worked up for identification of the primary tumor. No urgent orthopedic intervention is required. None of these lesions appear to require any type of surgical stabilization. If tumor biopsy is required, this can be done on a delayed basis after his mental state improves. I would recommend that he be referred to orthopedic oncology (such as Dr. Eris Armstrong at [facility]) if bone biopsy is required. Orthopedics will sign off at this point. Call with questions. History of Present Illness Reason for Consultation: Pelvis osteolytic lesions, question for surgical stabilization Attending Physician: Ana Scott, DO History of Present Illness Mr. Adams is a 67-year-old male we are asked to see for osteolytic lesions noted in the pelvis. History is entirely obtained from the chart and nursing staff, as the patient is unable to contribute anything to history given his current mental state. Allergies Allergy/AdvReac Type Severity Reaction Status Date / Time amoxicillin [From Augmentin] Allergy Intermediate SWELLING Verified 08/05/22 21:54 AROUND EYES clavulanic acid Allergy Intermediate SWELLING Verified 08/05/22 21:54 AROUND THE EYES Penicillins Allergy Intermediate AUGMENTIN Verified 08/05/22 21:54 - SWELLING AROUND THE EYES diflunisal AdvReac Intermediate VOMITING Verified 08/05/22 21:54 valsartan [From Diovan] AdvReac Intermediate Vomiting Verified 08/05/22 21:54 Home Medications Medication Instructions Recorded Confirmed Type aspirin 81 mg tablet,delayed 81 mg PO DAILY 05/22/19 08/05/22 History release atorvastatin 40 mg tablet (Lipitor) 40 mg PO HS 08/09/19 08/05/22 History hydrochlorothiazide 12.5 mg capsule 12.5 mg PO DAILY 09/16/19 08/05/22 History lisinopril 20 mg tablet 20 mg PO DAILY 09/16/19 08/05/22 History metformin 500 mg tablet See Rx Instructions .Route .COMPLEX 09/16/19 08/05/22 History pen needle, diabetic 32 gauge x #100 ea 10/23/19 05/17/22 Rx " (BD Ultra-Fine Augustina Pen Needle) cholecalciferol (vitamin D3) 25 1,000 units PO DAILY 01/27/20 08/05/22 History mcg (1,000 unit) tablet multivitamin (Multiple Vitamins 1 tab PO DAILY 01/27/20 08/05/22 History tablet) glucosamine HCl 500 mg tablet 500 mg PO DAILY 08/20/20 08/05/22 History metoprolol tartrate 50 mg tablet 50 mg PO BID #180 tabs 11/16/21 08/05/22 Rx insulin degludec 100 unit/mL (3 33 unit (0.33 mL) subcut HS #2 04/05/22 08/05/22 Rx mL) subcutaneous pen (Tresiba Boxes FlexTouch U-100 insulin) semaglutide 2 mg/dose (8 mg/3 mL) 2 mg (0.75 mL) subcut Q7D #3 mL 05/03/2201/20 Rx subcutaneous pen injector blood sugar diagnostic (Accu-Chek #100 ea 05/23/22 Rx Josephine Plus test strips) oxycodone 5 mg tablet 5 mg PO Q6H severe pain #12 tabs 08/02/22 08/05/22 Rx lidocaine 5 % topical patch 1 patch topical DAILY #15 ea 08/03/22 08/05/22 Rx diclofenac sodium 75 mg 75 mg PO BID PRN Pain 08/05/22 08/05/22 History tablet,delayed release Patient History Medical History Bronchitis Chest pain Dyslipidemia GE reflux Gout Hypertension Laceration of multiple sites of left hand and fingers Obstructive sleep apnea Tendon laceration Type 2 diabetes mellitus Vitamin D deficiency Surgical History History of surgery on arm Family History Father Alzheimer disease Dyslipidemia Mother Diabetes Coronary heart disease Other Family history non-contributory Social History (Reviewed 08/05/22 @ 20:25 by Saji Yoon Smoking Status: Never smoker Second Hand Exposure: No; Hx Alcohol Use: No Hx Substance Use: No Preferred Language: Puerto Rican Communication Ability: Effective Support Coordinator Required: No Beliefs That Will Affect Care: None marital status: Single marital status details: no children Current Living Situation: Alone current occupational status: retired Feels Safe at Home: Yes Assistive Devices: CPAP Physical Exam 2 Physical Exam: Patient is currently completely disoriented, confused, and has difficulty understanding simple communication. He is naked and attempting to climb out of bed. Nursing staff reports that he has been like this since admission, but this is not his baseline. He endorses tenderness to palpation when I touch him anywhere around his body, and this is therefore not reliable. No obvious discomfort with lateral compression on the pelvis and iliac wings. He is currently laying directly on his left side without obvious discomfort. Motor and sensory function is grossly intact distally. Results & Data ([facility]) Vital Signs (Past 12 Hours) Vital Signs Temp Pulse Pulse Pulse Resp BP BP 08/07/22 10:47 120 H 200/92 H 08/07/22 09:56 91 H 08/07/22 09:25 08/07/22 07:13 36.5 C 112 H 110 H 22 08/07/22 01:00 08/07/22 03:27 36.6 C 87 20 155/98 H 08/06/22 23:32 36.6 C 88 20 171/105 H BP Pulse Ox Pulse Ox O2 Del Method O2 Del Method 08/07/22 10:47 08/07/22 09:56 08/07/22 09:25 Room Air 08/07/22 07:13 187/115 H 92 Room Air 08/07/22 01:00 96 Room Air 08/07/22 03:27 96 Room Air 08/06/22 23:32 94 Room Air Diagnostic Findings CT scan of the pelvis was reviewed. It shows 2 separate osteolytic lesions within the left iliac wing. The more medial lesion is larger, but does not appear to involve the weightbearing column of the pelvis above the acetabulum. Another lesion is seen in the inferior pubic ramus. No lesions seen in the proximal femur.
[2022-08-07] MEDS: CALCITONIN SALMON 400 UNITS/2 ML SQ SCH ×2 (11:14→20:35)
[2022-08-07] MEDS: LANTUS PER UNIT CHARGE SQ SCH ×2 (11:19→20:37)
[2022-08-07] MEDS: HEPARIN SOD 5,000 UNIT/0.5 ML VIAL SQ SCH ×2 (11:19→20:37)
[2022-08-07] MEDS ORDERED: HALOPERIDOL LACTATE 5 MG/ML 1 ML VIAL IM STA ×2 (11:27→16:38)
[2022-08-07] MEDS ORDERED: HALOPERIDOL LACTATE 5 MG/ML 1 ML VIAL ONE (11:30)
[2022-08-07] MEDS ORDERED: METOPROLOL TARTRATE 1 MG/ML VIAL IV SCH (12:00)
[2022-08-07] MEDS ORDERED: LABETALOL HCL IV 5 MG/ML 20ML IV PRN (15:45)
[2022-08-07] MEDS: THIAMINE HCL 100 MG in SYRINGE 9 ML IV SCH (18:17)
[2022-08-07] MEDS: ATORVASTATIN 40 MG TAB PO SCH (20:37)
--- NOTE | 2022-08-07 21:42 | Electrocardiogram Report ---
Test Reason : Blood Pressure : / mmHG Vent. Rate : 102 BPM Atrial Rate : 102 BPM P-R Int : 150 ms QRS Dur : 078 ms QT Int : 322 ms P-R-T Axes : 047 -46 035 degrees QTc Int : 419 ms Poor data quality, interpretation may be adversely affected Sinus tachycardia Left axis deviation Abnormal ECG When compared with ECG of 31-MAR-2022 23:20, Premature ventricular complexes are no longer Present Confirmed by Sloan Castellano ([id number]) on 08/07/2022 9:41:37 PM Referred By: REFERRED SELF Confirmed By:Sloan Castellano
[2022-08-08] MEDS: SODIUM CHLORIDE 0.9% 1000ML 1,000 ML IV SCH ×3 (00:19→16:46)
[2022-08-08 06:10] LABS: Hemoglobin 12.5 g/dl (14.0-18.0); Mean Corpuscular Hemoglobin 32.7 pg (25.0-34.0); Mean Corpuscular Hgb Conc 36.8 g/dL (32.0-36.0); Mean Platelet Volume 9.6 fL (9.4-12.4); Platelet Count 250 K/uL (130-400); RDW Coefficient of Variation 12.8 % (11.5-14.5); RDW Standard Deviation 41.4 fL (36.4-46.3); Red Blood Count 3.82 M/uL (4.63-6.08); White Blood Count 6.86 K/ul (4.8-10.8)
[2022-08-08 06:38] LABS: BUN Creatinine Ratio 14.9 (10-20); Calcium 9.8 mg/dl (8.5-10.1); Creatinine Clr Calc Pharmacy 28.2 ml/min; Est GFR (African American) 27.7 ml/min; Est GFR (Non-African American) 23.9 ml/min; Potassium 3.5 mmol/L (3.5-5.1)
--- NOTE | 2022-08-08 07:29 | Hospitalist Progress Note ---
Date of Service August 08, 2022 Assessment & Plan (1) Metabolic encephalopathy: Plan: Haroon is a 67 year old male w/ PMHx of T2DM on insulin, L1 vertebral compression fracture, AZAR, vitamin D deficiency, GERD, gout, HTN admitted for hypercalcemia with concern for underlying malignancy (MM vs. metastatic disease with unknown primary). Metabolic encephalopathy: - confused overnight on 08/07 in the setting of hypercalcemia and YOSI, these are most likely causes. - No focal neurologic deficits (strength of all limbs intact, no facial droop, no slurred speech) and able to have conversations in periods of lucency. - UTox negative on 08/07. - Patient given Ativan and Haldol on 08/07 due to pulling out IV lines, trying to remove medical equipment, combative with staff. - Patient's hypercalcemia has resolved on 08/08. He is more A&O than previously and not combative at this time. Hypercalcemia (resolved) -Calcium 14.5 on admission -> 9.8 on 08/08 -Calcium 8-9 previous admissions. -Given 1 bolus of NSS in ED -> has been on NSS at 125cc/hr, continue. -PTH normal, Mg 1.7, Phos 4.6. -PTHrP/Vit-D 25 hydroxy/Vit D 1,25 Dihydroxy levels pending. -UA no evidence of infection. -Suspect metastatic cancer vs. multiple myeloma. Unclear primary at this time. -Oncology consulted; ultimately may need tissue biopsy of lesions for clarification. IgG, IgA, IgM not elevated. SPEP/UPEP pending. -Given Pamidronate 60mg IV x1. Continue Calcitonin BID. -Nephrology also consulted and appreciate recommendations. -Admitted to PCU, continuous cardiac monitoring. Daily EKGs. Lytic Bone lesion of hip: -Noted on CT imaging to have multiple scattered lytic/destructive lesions consistent with metastatic disease. -Same plan as above. Questionable underlying malignancy, unclear primary at this time. -Will need CT Head with contrast to eval for brain lesions, however will defer for now given significant YOSI. Acute back pain: -Ongoing back pain since generator heavy load incident at work mid June. -CT Lumbar spine from 08/02 with evidence of L1 endplate compression fracture with mild loss of height, as well as acute nondisplaced pathologic fracture of lateral 7th rib. Has scheduled appointment w/ Dr. Duncan 09/02. -Ortho consulted this admission for eval of osteolytic lesions ->Tumor biopsy can be deferred until after his mental status improves, and recommendation made for Ortho Oncology if bone biopsy needed (such as Dr. Eris Armstrong at [facility]). -Tylenol/morphine as needed for pain. Patient's pain as improved on 08/08 and has been well controlled with tylenol w/o the need of morphine. Will continue to monitor and plan to D/C once pain is well controlled. Acute renal failure: -Creatinine 3.75 on admission, which continues to improve -> 2.62 on 08/08 -Baseline creatinine 1.2-1.4. -Most likely secondary to hypercalcemia. -Continue IV fluids as above and monitor with AM labs. Elevated troponin: -Troponin 26.9 on admission, has since downtrended. -Suspect due to poor clearance from YOSI. T2DM: -Takes basal insulin at home 33U daily. Holding remaining home DM2 medications. -Lantus 17U BID (patient refused dose this morning during agitated period), SSI while inpatient with BSG checks qACHS. -A1c 6.4%. Fatigue: -Most likely due to hypercalcemia. Hgb has been trending down since August, 12.5 on 08/08. However no evidence of bleeding from any source. -Stool Hemoccult ordered. HTN: -Continue home lisinopril, metoprolol, HCTZ when taking PO. -For now, labetalol 10mg IV q8h ordered as needed for BP >180 systolic. HLD: -Continue home atorvastatin and baby aspirin. F/E/N/GI: Carb Consistent DVT Prophylaxis: Heparin 5000u SQ BID Code status: Full code. Patient would not like for sustained measures if unable to obtain ROSC after 1 round of CPR, would not want more than one spontaneous trial of breathing if intubated. Dispo: PCU/Tele for continuous monitoring given hypercalcemia. Thank you for allowing me to participate in the care of your patient. -Dr. Poncho Moreno PGY1 (2) Closed L1 vertebral fracture: (3) Lytic bone lesion of hip: (4) Acute back pain: (5) Acute renal failure: (6) Hypercalcemia: (7) Elevated troponin level: (8) Fatigue: (9) Hypertension: (10) Dyslipidemia: (11) Type 2 diabetes mellitus: Admission and Anticipated Discharge Date Admission Date: August 05, 2022 Supervising Physician Co-Signing Physician Notes Resident Physician Supervision Note: I independently interviewed and examined the patient and verified the wylie history and physical, reviewed labs and image studies and agree with resident findings and care plan. Subjective Patient was seen beside today and is doing better than he was yesterday. He is no longer agitated and is more alert than yesterday. A&Ox2 today (knew the year but thought it was August). Patient has no issues or concerns today besides feeling very tired and wanting to sleep. He c/o back and rib pain that gets worst with movement but overall is feeling better. He denies any SOB, CP, or N/V. Review of Systems Review of Systems: Unobtainable due to cognitive status Physical Exam Constitutional: WD/WN, vitals as above Respiratory: normal respiratory effort, lungs clear to auscultation Cardiovascular: RRR, no murmur, no edema Gastrointestinal (Abdomen): normal bowel sounds, soft, nontender, no hepatosplenomegaly Musculoskeletal: no cyanosis or clubbing, extremities motor strength 5/5 Skin: no rashes, warm and dry Psychiatric: Orientation: alert, oriented to person and oriented to place; + not oriented to time (knew the year but not the month) Results & Data Results & Data ([facility]) Vital Signs (Past 12 Hours) Vital Signs Temp Pulse Pulse Pulse Resp BP BP 08/08/22 05:58 100 H 08/08/22 03:21 08/08/22 02:31 36.6 C 106 H 16 162/89 H 08/07/22 22:16 36.9 C 97 H 20 154/97 H Pulse Ox Pulse Ox O2 Del Method O2 Del Method 08/08/22 05:58 08/08/22 03:21 96 Room Air 08/08/22 02:31 95 Room Air 08/07/22 22:16 93 Room Air Resident Activity Tracking Resident Involvement: Resident Care Provided Care Provided: Adult Hospital Medicine
[2022-08-08] MEDS: amLODIPine BESYLATE 5 MG TAB PO SCH (08:15)
[2022-08-08] MEDS: THIAMINE HCL 100 MG in SYRINGE 9 ML IV SCH (08:15)
[2022-08-08] MEDS: GLUCOSAMINE SULFATE 500 MG CAP PO SCH (08:16)
[2022-08-08] MEDS: ASPIRIN 81 MG ECTAB PO SCH (08:16)
[2022-08-08] MEDS: HEPARIN SOD 5,000 UNIT/0.5 ML VIAL SQ SCH ×2 (08:19→20:07)
[2022-08-08] MEDS: LANTUS PER UNIT CHARGE SQ SCH (08:21)
[2022-08-08] MEDS: CALCITONIN SALMON 400 UNITS/2 ML SQ SCH (08:21)
[2022-08-08] MEDS: INSULIN ASPART PER UNIT SC SCH ×4 (08:23→20:07)
--- NOTE | 2022-08-08 08:36 | Nephrology Progress Note ---
Date of Service August 08, 2022 Assessment & Plan (1) Hypercalcemia: Plan: * Resolved * Non-PTH mediated hypercalcemia. Elevated alkaline phosphatase. Hypercalcemia is likely due to underlying malignancy/metastatic disease * Primary service has already administered IVF, Calcitonin and Pamidronate * Continue current management, monitor serum Ca (2) Acute renal failure: Plan: * Clinically dehydrated * No obstruction on 08/05/[address] * Urine sediment is negative for blood or cellular casts * Cr has improved from 3.75 --> 2.62 (baseline Cr 1.27) * Continue IV hydration, monitor PRP (3) Hypertension: Plan: * Continue po Amlodipine and PRN IV Labetalol for BP management (4) Metabolic encephalopathy: Plan: * Patient is not significantly azotemic and hypercalcemia has corrected. He is clinically volume contracted and not hypoxemic * Recommend minimizing sedatives/pain medications * Consider head CT/MRI to assess for metastatic disease * Obtain blood and urine cultures if febrile Admission and Anticipated Discharge Date Admission Date: August 05, 2022 Subjective Mr. Adams was evaluated in his hospital room this morning. He was more alert and less agitated than yesterday. He c/o back and rib discomfort. He denied fever, dyspnea or nausea Review of Systems Constitutional: no fever Eyes: no problem reported Ear, Nose, Mouth, Throat: no problem reported Respiratory: no dyspnea Cardiovascular: no chest pain Gastrointestinal: no abdominal pain Neurologic: no problem reported Physical Exam Constitutional: + ill appearing Eyes: PERRL, conjunctivae normal, anicteric sclerae ENMT: Mouth: + dry oral mucous membranes Neck: trachea midline, no thyromegaly Respiratory: normal respiratory effort, lungs clear to auscultation Cardiovascular: Rate/Rhythm: regular rhythm and + tachycardic Gastrointestinal (Abdomen): Inspection/Auscultation: abdomen normal to inspection Percussion/Palpation: no guarding Neurologic: Speech / Cognition: normal speech Results & Data ([facility]) Vital Signs (Past 12 Hours) Vital Signs Temp Pulse Pulse Pulse Resp BP BP 08/08/22 07:32 36.9 C 112 H 19 141/80 H 08/08/22 05:58 100 H 08/08/22 03:21 08/08/22 02:31 36.6 C 106 H 16 162/89 H 08/07/22 22:16 36.9 C 97 H 20 154/97 H Pulse Ox Pulse Ox O2 Del Method O2 Del Method 08/08/22 07:32 94 Room Air 08/08/22 05:58 08/08/22 03:21 96 Room Air 08/08/22 02:31 95 Room Air 08/07/22 22:16 93 Room Air Laboratory Results Laboratory Tests 08/08/22 08/08/22 08/08/22 05:47 05:47 05:47 WBC 6.86 Hgb 12.5 L Hct 34.0 L Plt Count 250 Sodium 139 Potassium 3.5 D Chloride 110 H Carbon Dioxide 21 BUN 39 H Creatinine 2.62 H D Glucose 76 Calcium 9.8 D Ammonia 37.0 PG Care Time/CCT Total # of Minutes Spent Total Time Spent with Patient: Total time spent is greater than 50% in coordination of care (as documented) at patient's floor/unit and/or counseling patient: Coding Level of Care Code 58902 SUB INP/OBS CARE 3/50MIN Diagnoses Hypercalcemia E83.52 Acute renal failure N17.9 Hypertension I10 Metabolic encephalopathy G93.41
[2022-08-08 11:38] LABS: Free Kappa 1383.6 mg/L (3.3-19.4); Free Kappa/Lambda Ratio 78.61 (0.26-1.65); Free Lambda 17.6 mg/L (5.7-26.3)
[2022-08-08] MEDS: ATORVASTATIN 40 MG TAB PO SCH (20:07)
[2022-08-08] MEDS ORDERED: Nursing to Pharmacy Communication SCH (20:30)
[2022-08-08] MEDS ORDERED: LANTUS PER UNIT CHARGE SQ SCH (21:00)
[2022-08-09] MEDS: SODIUM CHLORIDE 0.9% 1000ML 1,000 ML IV SCH ×4 (00:17→23:39)
[2022-08-09] MEDS: ACETAMINOPHEN 325 MG TAB PO PRN (01:55)
[2022-08-09 06:00] LABS: Basophils # (auto) 0.03 K/uL (0-0.2); Basophils % (auto) 0.5 %; Eosinophils # (auto) 0.22 K/uL (0-0.50); Eosinophils % (auto) 3.4 %; Hematocrit (blood only) 32.5 % (40.1-51.0); Hemoglobin 11.8 g/dl (14.0-18.0); Immature Granulocytes # (auto) 0.04 K/uL (0.00-0.02); Immature Granulocytes % (auto) 0.6 %; Lymphocytes # (auto) 1.09 K/uL (1.2-3.4); Lymphocytes % (auto) 16.9 %; Mean Corpuscular Hemoglobin 32.8 pg (25.0-34.0); Mean Corpuscular Hgb Conc 36.3 g/dL (32.0-36.0); Mean Corpuscular Volume 90.3 fL (80.0-100.0); Mean Platelet Volume 9.6 fL (9.4-12.4); Monocytes # (auto) 0.53 K/uL (0.24-0.82); Monocytes % (auto) 8.2 %; Neutrophils # (auto) 4.55 K/uL (1.4-6.5); Neutrophils % (auto) 70.4 %; Platelet Count 225 K/uL (130-400); RDW Coefficient of Variation 12.9 % (11.5-14.5); RDW Standard Deviation 42.3 fL (36.4-46.3); White Blood Count 6.46 K/ul (4.8-10.8)
[2022-08-09 06:51] LABS: BUN Creatinine Ratio 15.1 (10-20); Calcium 8.3 mg/dl (8.5-10.1); Creatinine Clr Calc Pharmacy 32.3 ml/min; Est GFR (Non-African American) 27.6 ml/min; Potassium 3.4 mmol/L (3.5-5.1)
--- NOTE | 2022-08-09 06:54 | Hospitalist Progress Note ---
Date of Service August 09, 2022 Assessment & Plan (1) Metabolic encephalopathy: Plan: Haroon is a 67 year old male w/ PMHx of T2DM on insulin, L1 vertebral compression fracture, AZAR, vitamin D deficiency, GERD, gout, HTN admitted for hypercalcemia with concern for underlying malignancy (MM vs. metastatic disease with unknown primary). Light Chain Myeloma Lytic Bone lesion of hip: - IgG, IgA, IgM not elevated - SPEP/UPEP pending -lytic lesion Noted on CT imaging consistent with metastatic disease. -Med oncology - plasma cell neoplasm. Will need arrange confirmatory biopsy that can be done either as an in patient or an outpatient. -Oncology also recommends to start a 4 day course of 40mg of dexamethasone. Will need to monitor glucose d/t DM. -Radiation oncology consulted - to start palliative radiation Metabolic encephalopathy: - Patient given Ativan and Haldol on 08/07 due to pulling out IV lines, trying to remove medical equipment, combative with staff. - Patient is A&Ox3, cooperative, and can articulate his hospital plan effectively Hypercalcemia (resolved) - sec to underlying malignancy - non PTH mediated - Calcium 14.5 on admission -> 8.3 on 08/09 - PTHrP/Vit-D 25 hydroxy/Vit D 1,25 Dihydroxy levels pending. - Given 1 bolus of NSS in ED. - Continue NSS at 100cc/hr - Given Pamidronate 60mg IV x1. - will consider longer-term bone directed therapy on a every 4 week basis. - Discontinue Calcitonin BID due to normal calcium levels - Nephrology following Acute back pain: Pathologic fracture likely from metastatic cancer, L2 vertebra, L lateral 7th rib - CT Lumbar spine from 08/02 with evidence of L1 endplate compression fracture with mild loss of height, as well as acute nondisplaced pathologic fracture of lateral 7th rib. Has scheduled appointment w/ Dr. Duncan 09/02. - Biopsy planned post-discharge -Tylenol/morphine as needed for pain. Pain better controlled Acute renal failure: - Creatinine 3.75 on admission, which continues to improve -> 2.32 on 08/09 - Baseline creatinine 1.2-1.4. - Most likely secondary to hypercalcemia. - Continue IV NSS 100 ml/hr - Monitor with AM labs. Elevated troponin: - Troponin 26.9 on admission, has since downtrended. - Suspect due to poor clearance from YOSI. T2DM: - Takes basal insulin at home 33U daily. Holding remaining home DM2 medications. - Lantus 17U BID. SSI while inpatient with BSG checks qACHS. - A1c 6.4%. - Glycemic consult ordered - Monitor for blood glucose changes following dexamethasone administration HTN: - Continue home lisinopril, metoprolol, HCTZ. - For now, labetalol 10mg IV q8h ordered as needed for BP >180 systolic. HLD: - Continue home atorvastatin and baby aspirin. F/E/N/GI: Carb Consistent DVT Prophylaxis: Heparin 5000u SQ BID Code status: Full code. Patient would not like for sustained measures if unable to obtain ROSC after 1 round of CPR, would not want more than one spontaneous trial of breathing if intubated. Dispo: PCU/Tele for continuous monitoring given hypercalcemia. Thank you for allowing me to participate in the care of your patient. -Dr. Poncho Moreno PGY1 (2) Closed L1 vertebral fracture: (3) Lytic bone lesion of hip: (4) Acute back pain: (5) Acute renal failure: (6) Hypercalcemia: (7) Elevated troponin level: (8) Fatigue: (9) Hypertension: (10) Dyslipidemia: (11) Type 2 diabetes mellitus: (12) Light chain myeloma: Admission and Anticipated Discharge Date Admission Date: August 05, 2022 Supervising Physician Co-Signing Physician Notes Resident Physician Supervision Note: I independently interviewed and examined the patient and verified the wylie history and physical, reviewed labs and image studies and agree with resident findings and care plan. Tony Patiño is a 67 year old male w/ PMHx of T2DM on insulin, L1 vertebral compression fracture, AZAR, vitamin D deficiency, GERD, gout, HTN admitted for hypercalcemia with concern for underlying malignancy (MM vs. metastatic disease with unknown primary). Today, patient is feeling much more like himself. Expresses understanding of his hospital course and plan for treatment. No acute concerns today. Rib and back pain is the same as yesterday and most prominent with direct pressure. Appetite is improving overall. Review of Systems Respiratory: no dyspnea Cardiovascular: no chest pain Gastrointestinal: Hasn't had a bowel movement in 6-7 days, no abdominal pain, starting to eat more, increased appetite Musculoskeletal: Left sided lower rib pain, lower back pain. Present at rest and worsens with direct pressure Neurologic: no loss of sensation and no paresthesia Psychiatric: Mood improved from yesterday, feels more like himself Physical Exam Respiratory: no respiratory distress and does not use accessory muscles Auscultation: lungs clear to auscultation bilaterally Cardiovascular: RRR with soft crescendo-descrendo systolic ejection murmur most prominent on expiration and RUSB Musculoskeletal: Point tenderness on L1 vertebrae accompanied by mild to moderate paraspinal tenderness. Point tenderness to lower left rib cage (ribs 6- 8; anteriorly). Neurologic: Intact sensation in bilateral lower extremities. Reflexes 1+ in bilateral lower extremities. Upper extremity reflex elicitation limited by patient pain/tenderness at IV sites. [place] negative bilaterally Psychiatric: Orientation: alert and oriented x 3 Results & Data Results & Data ([facility]) Vital Signs (Past 12 Hours) Vital Signs Temp Pulse Resp BP BP Pulse Ox O2 Del Method 08/09/22 02:34 36.5 C 109 H 18 160/85 H 171/104 H 96 Room Air 08/08/22 22:44 36.7 C 108 H 15 171/92 H 95 Room Air 08/08/22 19:14 36.7 C 107 H 20 168/85 H 95 Room Air
[2022-08-09] MEDS: THIAMINE HCL 100 MG in SYRINGE 9 ML IV SCH (08:07)
[2022-08-09] MEDS: amLODIPine BESYLATE 5 MG TAB PO SCH (08:07)
[2022-08-09] MEDS: ASPIRIN 81 MG ECTAB PO SCH (08:07)
[2022-08-09] MEDS: GLUCOSAMINE SULFATE 500 MG CAP PO SCH (08:07)
[2022-08-09] MEDS: HEPARIN SOD 5,000 UNIT/0.5 ML VIAL SQ SCH ×2 (08:07→21:11)
[2022-08-09] MEDS: INSULIN ASPART PER UNIT SC SCH ×5 (08:09→23:39)
[2022-08-09] MEDS: LANTUS PER UNIT CHARGE SQ SCH (08:11)
--- NOTE | 2022-08-09 08:39 | Nephrology Progress Note ---
Date of Service August 09, 2022 Assessment & Plan (1) Hypercalcemia: Plan: * Resolved * Non-PTH mediated hypercalcemia. Elevated alkaline phosphatase. Hypercalcemia is likely due to underlying malignancy/metastatic disease * Primary service provided IVF, Calcitonin and Pamidronate * Continue current management, monitor serum Ca (2) Acute renal failure: Plan: * Clinically dehydrated * No obstruction on 08/05/[address] * Urine sediment is negative for blood or cellular casts * Cr has improved from 3.75 --> 2.62 --> 2.3 (baseline Cr 1.27) * Continue IV hydration, monitor PRP (3) Hypertension: Plan: * Continue po Amlodipine and PRN IV Labetalol for BP management (4) Metabolic encephalopathy: Plan: * Improved Admission and Anticipated Discharge Date Admission Date: August 05, 2022 Subjective Mr. Adams was evaluated in his hospital room this morning. He denied fever, dyspnea or nausea Review of Systems Constitutional: no fever Eyes: no problem reported Ear, Nose, Mouth, Throat: no problem reported Respiratory: no dyspnea Cardiovascular: no chest pain Gastrointestinal: no abdominal pain Neurologic: no problem reported Physical Exam Constitutional: + ill appearing Eyes: PERRL, conjunctivae normal, anicteric sclerae ENMT: Mouth: + dry oral mucous membranes Neck: trachea midline, no thyromegaly Respiratory: normal respiratory effort, lungs clear to auscultation Cardiovascular: Rate/Rhythm: regular rhythm and + tachycardic Gastrointestinal (Abdomen): Inspection/Auscultation: abdomen normal to inspection Percussion/Palpation: abdomen nontender and no guarding Neurologic: Speech / Cognition: normal speech and normal cognition Results & Data ([facility]) Vital Signs (Past 12 Hours) Vital Signs Temp Pulse Pulse Resp BP BP Pulse Ox 08/09/22 07:33 36.9 C 105 H 18 129/88 95 08/09/22 02:34 36.5 C 109 H 18 160/85 H 171/104 H 96 08/08/22 22:44 36.7 C 108 H 15 171/92 H 95 O2 Del Method 08/09/22 07:33 Room Air 08/09/22 02:34 Room Air 08/08/22 22:44 Room Air Laboratory Results Laboratory Tests 09/13/21 08/06/22 08/06/22 15:07 01:36 01:37 WBC Hgb Hct Plt Count Sodium Potassium Chloride Carbon Dioxide BUN Creatinine Glucose Calcium PEP Interpretation 1,25 Dihydroxy Vit D3 Pending PTH Intact 51.4 PTH Related Protein Pending Microalb/Creat Ratio 13 Urine PEP Interpret 08/07/22 08/08/22 08/09/22 06:41 15:00 05:29 WBC 6.46 Hgb 11.8 L Hct 32.5 L Plt Count 225 Sodium Potassium Chloride Carbon Dioxide BUN Creatinine Glucose Calcium PEP Interpretation Pending 1,25 Dihydroxy Vit D3 PTH Intact PTH Related Protein Microalb/Creat Ratio Urine PEP Interpret Pending 08/09/22 05:29 WBC Hgb Hct Plt Count Sodium 139 Potassium 3.4 L Chloride 112 H Carbon Dioxide 18 L BUN 35 H Creatinine 2.32 H D Glucose 74 Calcium 8.3 L PEP Interpretation 1,25 Dihydroxy Vit D3 PTH Intact PTH Related Protein Microalb/Creat Ratio Urine PEP Interpret PG Care Time/CCT Total # of Minutes Spent Total Time Spent with Patient: Total time spent is greater than 50% in coordination of care (as documented) at patient's floor/unit and/or counseling patient: Coding Level of Care Code 41213 SUB INP/OBS CARE 3/50MIN Diagnoses Hypercalcemia E83.52 Acute renal failure N17.9 Hypertension I10 Metabolic encephalopathy G93.41
[2022-08-09] MEDS: dexAMETHasone 4 MG TAB PO SCH (10:45)
--- NOTE | 2022-08-09 11:21 | Radiation OncologyConsultation ---
Date of Consultation August 09, 2022 Assessment & Plan (1) Light chain myeloma: Plan Assessment: Mr. Adams is a 67-year-old gentleman who presents with a working diagnosis of light chain myeloma potentially favoring multiple myeloma. The patient was recently admitted to the hospital with back pain, hypercalcemia and scans revealing multiple lytic lesions. The patient did develop altered mental status which has improved. The patient's blood work so far has shown an elevated free kappa light chain. The patient has been seen by Dr. Jesus from medical oncology who is recommended to complete work-up to rule out/confirm diagnosis of multiple myeloma. The patient is currently symptomatic and having back pain likely associated with thoracic disease involvement as well as pelvic pain likely associated with left pelvic lytic lesions. I have been asked to evaluate the patient regarding the role of radiation therapy. Recommendation: I have reviewed the case with Dr. Jesus who agrees that palliative external beam radiation therapy to areas of bone disease could be beneficial given the working diagnosis. We will recommend palliative external beam radiation therapy to the pelvis and spine depending on patient's locations of pain. Plan: 1. Discuss plan with patient tomorrow and if agreeable bring down patient for CT simulation. 2. Plan for palliative external beam radiation therapy to the start in the inpatient or outpatient setting. 3. Work-up as per medical oncology to confirm final diagnosis. 4. Pain management as per primary medical team. 5. Patient and family encouraged to call us with any further questions or concerns. History of Present Illness Attending Physician: Faby Tan MD History of Present Illness 08/02/2022. Patient is admitted to the hospital with complaints of low back pain. 08/02/2022. CT lumbar spine. 1. There is an osteolytic lesion in the left iliac wing. This is highly suspicious for bony metastatic disease. Correlate with the patient's oncological history. 2. There is an acute superior endplate compression fracture of L1 with mild loss of height. No significantly retropulsed fragments are seen. 3. No additional acute fracture is identified. 4. Degenerative disc disease as above. 08/05/2022. CT chest. 1. Multiple scattered lytic/destructive osseous lesions as described above consistent with metastatic disease. These result in pathologic fractures of the right medial clavicle and left seventh rib. No pneumothorax 2. Stable 5 mm nodule within the left lower lobe. No new pulmonary nodules identified. 3. The abdominal structures will be reported separately. 08/05/2022. CT abdomen pelvis. 1. Numerous osteolytic skeletal lesions are redemonstrated suggestive of metastasis versus multiple myeloma. 2. Acute nondisplaced pathologic fracture involving of the lateral left seventh rib with additional multifocal areas of bony destruction as above. 3. Unchanged appearance of the acute pathologic L1 fracture, stable from 08/02/2022. 4. No bowel obstruction or bowel wall thickening. 5. Right nephrolithiasis. 6. Cholelithiasis. 08/06/2022. Medical oncology consultation by Dr. Jesus. Recommendation is for completion of work-up for potential myeloma. Orthopedic surgery consultation also recommended. 08/07/2022. Orthopedic surgery consultation. No plan for surgical intervention. Refer to orthopedic oncology if biopsy needed. Allergies Allergy/AdvReac Type Severity Reaction Status Date / Time amoxicillin [From Augmentin] Allergy Intermediate SWELLING Verified 08/05/22 21:54 AROUND EYES clavulanic acid Allergy Intermediate SWELLING Verified 08/05/22 21:54 AROUND THE EYES Penicillins Allergy Intermediate AUGMENTIN Verified 08/05/22 21:54 - SWELLING AROUND THE EYES diflunisal AdvReac Intermediate VOMITING Verified 08/05/22 21:54 valsartan [From Diovan] AdvReac Intermediate Vomiting Verified 08/05/22 21:54 Home Medications Medication Instructions Recorded Confirmed Type aspirin 81 mg tablet,delayed 81 mg PO DAILY 05/22/19 08/05/22 History release atorvastatin 40 mg tablet (Lipitor) 40 mg PO HS 08/09/19 08/05/22 History hydrochlorothiazide 12.5 mg capsule 12.5 mg PO DAILY 09/16/19 08/05/22 History lisinopril 20 mg tablet 20 mg PO DAILY 09/16/19 08/05/22 History metformin 500 mg tablet See Rx Instructions .Route .COMPLEX 09/16/19 08/05/22 History pen needle, diabetic 32 gauge x #100 ea 10/23/19 05/17/22 Rx 32" (BD Ultra-Fine [place] Pen Needle) cholecalciferol (vitamin D3) 25 1,000 units PO DAILY 01/27/20 08/05/22 History mcg (1,000 unit) tablet multivitamin (Multiple Vitamins 1 tab PO DAILY 01/27/20 08/05/22 History tablet) glucosamine HCl 500 mg tablet 500 mg PO DAILY 08/20/20 08/05/22 History metoprolol tartrate 50 mg tablet 50 mg PO BID #180 tabs 11/16/21 08/05/22 Rx insulin degludec 100 unit/mL (3 33 unit (0.33 mL) subcut HS #2 04/05/22 08/05/22 Rx mL) subcutaneous pen (Tresiba Boxes FlexTouch U-100 insulin) semaglutide 2 mg/dose (8 mg/3 mL) 2 mg (0.75 mL) subcut Q7D #3 mL 05/03/22 08/05/22 Rx subcutaneous pen injector blood sugar diagnostic (Accu-Chek #100 ea 05/23/22 Rx Josephine Plus test strips) oxycodone 5 mg tablet 5 mg PO Q6H severe pain #12 tabs 08/02/22 08/05/22 Rx lidocaine 5 % topical patch 1 patch topical DAILY #15 ea 08/03/22 08/05/22 Rx diclofenac sodium 75 mg 75 mg PO BID PRN Pain 08/05/22 08/05/22 History tablet,delayed release Patient History Medical History (Updated 08/09/22 @ 11:31 by Hugo Santana MD) Bronchitis Chest pain Dyslipidemia GE reflux Gout Hypertension Laceration of multiple sites of left hand and fingers Light chain myeloma Obstructive sleep apnea [place] laceration Type 2 diabetes mellitus Vitamin D deficiency Surgical History History of surgery on arm Family History Father Alzheimer disease Dyslipidemia Mother Diabetes Coronary heart disease Other Family history non-contributory Social History Smoking Status: Never smoker Second Hand Exposure: No; Hx Alcohol Use: No Hx Substance Use: No Preferred Language: [place] Communication Ability: Effective Mobile Electronics Installer Required: No Beliefs That Will Affect Care: None marital status: Single marital status details: no children Current Living Situation: Alone current occupational status: retired Feels Safe at Home: Yes Assistive Devices: Cane and Walker Review of Systems Review of Systems: Significant pain involving back and pelvis. Patient still feels "groggy". Physical Exam Constitutional: WD/WN, vitals as above Limited examination due to patient's discomfort. Musculoskeletal: Tenderness to palpation involving left iliac bone. Psychiatric: A+Ox3, euthymic affect
[2022-08-09] MEDS ORDERED: PHARMACY GLYCEMIC MGMT CONSULT PRN (14:24)
[2022-08-09] MEDS ORDERED: LANTUS PER UNIT CHARGE SQ ONE (14:45)
[2022-08-09] MEDS: ATORVASTATIN 40 MG TAB PO SCH (21:09)
[2022-08-10] MEDS: INSULIN ASPART PER UNIT SC SCH ×5 (04:21→21:45)
[2022-08-10 06:03] LABS: Basophils # (auto) 0.01 K/uL (0-0.2); Basophils % (auto) 0.1 %; Hematocrit (blood only) 30.6 % (40.1-51.0); Hemoglobin 11.4 g/dl (14.0-18.0); Immature Granulocytes # (auto) 0.07 K/uL (0.00-0.02); Immature Granulocytes % (auto) 0.8 %; Lymphocytes # (auto) 0.75 K/uL (1.2-3.4); Mean Corpuscular Hemoglobin 32.6 pg (25.0-34.0); Mean Corpuscular Hgb Conc 37.3 g/dL (32.0-36.0); Mean Corpuscular Volume 87.4 fL (80.0-100.0); Monocytes # (auto) 0.16 K/uL (0.24-0.82); Monocytes % (auto) 1.9 %; Neutrophils # (auto) 7.32 K/uL (1.4-6.5); Neutrophils % (auto) 88.2 %; Platelet Count 245 K/uL (130-400); RDW Coefficient of Variation 12.7 % (11.5-14.5); RDW Standard Deviation 40.7 fL (36.4-46.3); White Blood Count 8.31 K/ul (4.8-10.8)
--- NOTE | 2022-08-10 06:15 | Hospitalist Progress Note ---
Date of Service August 09, 2022 Assessment & Plan (1) Light chain myeloma: Plan: [place] light chain elevation to almost 1400 with markedly asymmetric free light chain ratio combined with the lytic bone lesions and presenting hypercalcemia renal failure essentially establish a clinical diagnosis of myeloma. While we would certainly want to obtain bone marrow or bone lesion biopsy in the future particularly for molecular characterization and final staging, this certainly zimmerman him with that disease. Would suggest dexamethasone 4 mg daily for 4 days which should not dramatically impair our ability to make an ultimate tissue diagnosis, will modulate his disease with particularly ongoing concern as to mitigate renal function, and may help to modulate his pain. Would combine that with radiation oncology review for palliative radiation to the most symptomatic areas. As we achieve good pain control and assure from an orthopedic standpoint that there are no lesions at threat for fracture, can transition to an outpatient work-up and finalize biopsy, staging/prognosis, and a more comprehensive treatment plan that would likely be multidrug induction along with bone directed therapy further stabilization of his lytic lesions. Plan Dexamethasone and radiation oncology for now, as we assure stability will transition a more complete work-up as an outpatient and more definitive therapy as above. Admission and Anticipated Discharge Date Admission Date: August 05, 2022 Subjective Still some pain but converses reasonably comfortably. Alert, appropriate Physical Exam Physical Exam: Borderline hypertension and tachycardia but overall reasonably stable Lungs clear, cardiac rhythm tachycardic but regular, abdomen seems benign No peripheral pathologic adenopathy Neurologic exam nonfocal Results & Data Results & Data ([facility]) Vital Signs (Past 12 Hours) Vital Signs Temp Pulse Pulse Pulse Resp BP BP 08/10/22 02:19 36.9 C 103 H 18 166/91 H 176/104 H 08/09/22 23:11 111 H 08/09/22 22:30 36.8 C 109 H 20 157/92 H 08/09/22 19:34 36.5 C 109 H 20 141/94 H Pulse Ox O2 Del Method 08/10/22 02:19 95 Room Air 08/09/22 23:11 08/09/22 22:30 95 Room Air 08/09/22 19:34 95 Room Air Laboratory Results Abnormal lab results 08/09/22 08/09/22 08/09/22 Range/Units 05:29 11:02 16:17 RBC (4.63-6.08) M/uL Hgb (14.0-18.0) g/dl Hct (40.1-51.0) % MCHC (32.0-36.0) g/dL Neut # (Auto) (1.4-6.5) K/uL Lymph # (Auto) (1.2-3.4) K/uL [place] # (Auto) (0.24-0.82) K/uL Immature Gran # (Auto) (0.00-0.02) K/uL Potassium 3.4 L (3.5-5.1) mmol/L Chloride 112 H (98-107) mmol/L Carbon Dioxide 18 L (21-32) mmol/L BUN 35 H (6-23) mg/dl Creatinine 2.32 H D (0.6-1.4) mg/dl POC Glucose 176 H 217 H (70-99) mg/dl Calcium 8.3 L (8.5-10.1) mg/dl Ionized Calcium (1.12-1.32) mmol/L 08/09/22 08/09/22 08/10/22 Range/Units 20:17 23:36 04:10 RBC (4.63-6.08) M/uL Hgb (14.0-18.0) g/dl Hct (40.1-51.0) % MCHC (32.0-36.0) g/dL Neut # (Auto) (1.4-6.5) K/uL Lymph # (Auto) (1.2-3.4) K/uL [place] # (Auto) (0.24-0.82) K/uL Immature Gran # (Auto) (0.00-0.02) K/uL Potassium (3.5-5.1) mmol/L Chloride (98-107) mmol/L Carbon Dioxide (21-32) mmol/L BUN (6-23) mg/dl Creatinine (0.6-1.4) mg/dl POC Glucose 192 H 132 H 172 H (70-99) mg/dl Calcium (8.5-10.1) mg/dl Ionized Calcium (1.12-1.32) mmol/L 08/10/22 08/10/22 Range/Units 05:31 05:31 RBC 3.50 L (4.63-6.08) M/uL Hgb 11.4 L (14.0-18.0) g/dl Hct 30.6 L (40.1-51.0) % MCHC 37.3 H (32.0-36.0) g/dL Neut # (Auto) 7.32 H (1.4-6.5) K/uL Lymph # (Auto) 0.75 L (1.2-3.4) K/uL [place] # (Auto) 0.16 L (0.24-0.82) K/uL Immature Gran # (Auto) 0.07 H (0.00-0.02) K/uL Potassium (3.5-5.1) mmol/L Chloride (98-107) mmol/L Carbon Dioxide (21-32) mmol/L BUN (6-23) mg/dl Creatinine (0.6-1.4) mg/dl POC Glucose (70-99) mg/dl Calcium (8.5-10.1) mg/dl Ionized Calcium 1.09 L (1.12-1.32) mmol/L PG Care Time/CCT Total # of Minutes Spent Total Time Spent with Patient: Total time spent is greater than 50% in coordination of care (as documented) at patient's floor/unit and/or counseling patient: Coding [place] [address] SUB INP/OBS CARE 2/35MIN Patient Type Established History Expanded Problem Focused Exam Expanded Problem Focused Medical Decision Making Moderate Complexity Diagnoses Light chain myeloma C90.00
[2022-08-10 06:49] LABS: BUN Creatinine Ratio 21.1 (10-20); Creatinine Clr Calc Pharmacy 39.3 ml/min; Est GFR (African American) 40.8 ml/min; Est GFR (Non-African American) 35.2 ml/min; Potassium 3.6 mmol/L (3.5-5.1)
--- NOTE | 2022-08-10 06:58 | Hospitalist Progress Note ---
Date of Service August 10, 2022 Assessment & Plan (1) Metabolic encephalopathy: Plan: Haroon is a 67 year old male w/ PMHx of T2DM on insulin, L1 vertebral compression fracture, AZAR, vitamin D deficiency, GERD, gout, HTN admitted for hypercalcemia with concern for underlying malignancy (MM vs. metastatic disease with unknown primary). Light Chain Myeloma Lytic Bone lesion of hip: - IgG, IgA, IgM not elevated - SPEP/UPEP pending -lytic lesion Noted on CT imaging consistent with metastatic disease. -Med oncology - plasma cell neoplasm. Will need arrange confirmatory biopsy that can be done either as an in patient or an outpatient. -Oncology also recommends to start a 4 day course of 40mg of dexamethasone. Will need to monitor glucose d/t DM. -Patient will end 4 day course of dexamethasone 08/12. -Radiation oncology consulted - to start palliative radiation as an outpatient and will need pain meds before treatment days. Metabolic encephalopathy: - Patient given Ativan and Haldol on 08/07 due to pulling out IV lines, trying to remove medical equipment, combative with staff. - off and on delirious. continue supportive care with frequent reorientation Hypercalcemia (resolved) - sec to underlying malignancy - non PTH mediated - Calcium 14.5 on admission -> 8.0 on 08/09 - PTHrP/Vit-D 25 hydroxy/Vit D 1,25 Dihydroxy levels pending. - Given 1 bolus of NSS in ED. - Continue NSS at 100cc/hr - Given Pamidronate 60mg IV x1. - will consider longer-term bone directed therapy on a every 4 week basis. - Discontinue Calcitonin BID due to normal calcium levels - Nephrology following Acute back pain: Pathologic fracture likely from metastatic cancer, L2 vertebra, L lateral 7th rib - CT Lumbar spine from 08/02 with evidence of L1 endplate compression fracture with mild loss of height, as well as acute nondisplaced pathologic fracture of lateral 7th rib. Has scheduled appointment w/ Dr. Duncan 09/02. - Biopsy planned post-discharge -Tylenol/morphine as needed for pain. Pain better controlled, though with movement it is still very painful. -Will consider adding in more pain management medication once off steroids Acute renal failure: - Creatinine 3.75 on admission, which continues to improve -> 1.9 on 08/10 - Baseline creatinine 1.2-1.4. - Most likely secondary to hypercalcemia. - Continue IV NSS 100 ml/hr - Monitor with AM labs. Elevated troponin: - Troponin 26.9 on admission, has since downtrended. - Suspect due to poor clearance from [facility]OS[facility]. T2DM: - Takes basal insulin at home 33U daily. Holding remaining home DM2 medications. - Lantus 17U BID. SSI while inpatient with BSG checks qACHS. - A1c 6.4%. - Glycemic consult ordered - Monitor for blood glucose changes following dexamethasone administration HTN: - Continue home lisinopril, metoprolol, HCTZ. - For now, labetalol 10mg IV q8h ordered as needed for BP >180 systolic. HLD: - Continue home atorvastatin and baby aspirin. F/E/N/GI: Carb Consistent DVT Prophylaxis: Heparin 5000u SQ BID Code status: Full code. Patient would not like for sustained measures if unable to obtain ROSC after 1 round of CPR, would not want more than one spontaneous trial of breathing if intubated. Dispo: [employer] Thank you for allowing me to participate in the care of your patient. -Dr. Poncho Moreno PGY1 (2) Closed L1 vertebral fracture: (3) Lytic bone lesion of hip: (4) Acute back pain: (5) Acute renal failure: (6) Hypercalcemia: (7) Elevated troponin level: (8) Fatigue: (9) Hypertension: (10) Dyslipidemia: (11) Type 2 diabetes mellitus: (12) Light chain myeloma: Admission and Anticipated Discharge Date Admission Date: August 05, 2022 Supervising Physician Co-Signing Physician Notes Resident Physician Supervision Note: I independently interviewed and examined the patient and verified the wylie history and physical, reviewed labs and image studies and agree with resident findings and care plan. Subjective Patient was seen beside this morning. He is c/o of back pain still but thinks that it improved slightly since starting steroids. States that most of his pain is when he moves and it goes from his back to his L flank. Review of Systems Review of Systems: All systems reviewed & are unremarkable except as noted in HPI & below Physical Exam Constitutional: WD/WN, vitals as above Respiratory: normal respiratory effort, lungs clear to auscultation Cardiovascular: Rate/Rhythm: regular rhythm and + tachycardic Heart Sounds: normal S1 and normal S2; no murmur Gastrointestinal (Abdomen): normal bowel sounds, soft, nontender, no hepatosplenomegaly Musculoskeletal: no cyanosis or clubbing, extremities motor strength 5/5 Skin: no rashes, warm and dry Psychiatric: Orientation: alert and oriented x 3 Results & Data Results & Data ([facility]) Vital Signs (Past 12 Hours) Vital Signs Temp Pulse Pulse Pulse Resp BP BP 08/10/22 02:19 36.9 C 103 H 18 166/91 H 176/104 H 08/09/22 23:11 111 H 08/09/22 22:30 36.8 C 109 H 20 157/92 H 08/09/22 19:34 36.5 C 109 H 20 141/94 H Pulse Ox O2 Del Method 08/10/22 02:19 95 Room Air 08/09/22 23:11 08/09/22 22:30 95 Room Air 08/09/22 19:34 95 Room Air
[2022-08-10 07:19] LABS: Uric Acid 9.7 mg/dl (2.6-7.2)
[2022-08-10] MEDS: INSULIN HUMAN NPH SC SCH (07:50)
[2022-08-10] MEDS: dexAMETHasone 4 MG TAB PO SCH (07:52)
[2022-08-10] MEDS: GLUCOSAMINE SULFATE 500 MG CAP PO SCH (07:53)
[2022-08-10] MEDS: HEPARIN SOD 5,000 UNIT/0.5 ML VIAL SQ SCH ×2 (07:53→21:13)
[2022-08-10] MEDS: amLODIPine BESYLATE 5 MG TAB PO SCH (07:53)
[2022-08-10] MEDS: ASPIRIN 81 MG ECTAB PO SCH (07:53)
[2022-08-10] MEDS: THIAMINE HCL 100 MG in SYRINGE 9 ML IV SCH (07:54)
--- NOTE | 2022-08-10 08:29 | Radiation Oncology Progress Nt ---
Date of Service August 10, 2022 Assessment & Plan (1) Light chain myeloma: Plan 67-year-old gentleman with light chain myeloma. Hospitalized due to encephalopathy and back pain. All studies have been reviewed. Plan for palliative radiation therapy. The patient was brought to our office today for CT simulation. Consent to treatment and potential side effects will be reviewed by Dr. Santana. Patient is in agreement to go forward with radiation therapy. He question when he would be discharged. I stated this would be up to the hospitalist. He is not yet been out of bed. His pain is too great with movement. He will have pain medication prior to coming to our office. Tra nsportation will be arranged so that he will be coming in his bed. Currently plan to treat lumbar spine and L1. Treatment will also be given to the pelvis. He will begin treatment when treatment plans are complete. ATTENDING ADDENDUM: Patient's case was discussed with Dr. Jesus and the agreed plan was to proceed with palliative radiation therapy given the current diag nosis of light chain myeloma. The plan will be to provide palliative radiation therapy to the thoracic spine and pelvis. The patient will be brought down for simulation and initiate treatment as soon as possible. Consent will be obtained in our department. Discussion of radiation therapy: I explained the indications, alternatives, benefits, risks and side effects of external beam radiation therapy. I then discussed radiation therapy side effects for treatment which include, but are not limited to, skin erythema, dry/moist desquamation of the skin, hyperpigmentation, telangiectasias, damage to the heart and development of cardiovascular disease, damage to the lungs including radiation pneumonitis, pulmonary fibrosis, decrease in pulmonary function, cough, fistula formation, tracheal stenosis, esophageal stenosis, esophageal perforation, dysphagia, nausea, vomiting, ulcers in stomach/bowel, gastritis, gastric perforation, bowel perforation, bowel obstruction, weight loss, dehydration, decreased appetite, liver damage including hepatitis and liver failure, damage to the kidneys including decreased renal function and renal failure, spinal cord damage inclu ding myelopathy, fatigue and secondary malignancy. I did explain the indications, alternatives, benefits, risks and side effects of external beam radiation therapy. I did explain the most common side effects including, but not limited to, skin erythema, skin breakdown, hyperpigmentation, telangiectasia, wound complications, perianal fistula development, fistula formation, nausea, vomiting, bowel obstruction, bowel perforation, dysuria, increased urinary frequency, urgency, diarrhea, constipation, melena, hematochezia, hematuria, radiation cystitis, radiation proctitis, fatigue, decreased blood counts, wound complications from surgery, urinary incontinence, rectal incontinence, secondary malignancy development. I did explain the procedures and daily process of radiation therapy. Admission and Anticipated Discharge Date Admission Date: August 05, 2022 Supervising Physician Co-Signing Physician Notes I independently interviewed and examined the patient and verified the wylie history and physical, reviewed labs and image studies and agree with resident findings and care plan. I agree with plan. Subjective Follow-up on patient's status for today. Patient is very alert and talkative this morning. He reviewed with me the injury that occurred to his back. Early June he had bought a emergency generator for his home. He brought this on [employer] list. When he got to the [place] home he helped to push the generator onto his truck. They handle had been put on incorrectly and they had difficulty pushing the generator. It began to slide back and he had to hold this in place and leave this then back down. After this he noted pain in his entire spine. He took ibuprofen when he got home. He steadily had increasing back pain and then developed the confusion and was admitted. Today he states the pain is mostly in the upper thoracic spine and radiates downward. While sitting still he gives a pain level of 3. With movement the pain becomes much worse. He started the dexamethasone. He is much more cognizant today. Physical Exam Physical Exam: Awake and alert Eyes: PERRL, conjunctivae normal, anicteric sclerae ENMT: Ears: no hearing impairment Neck: trachea midline, no thyromegaly Musculoskeletal: Examination of his back reveals mild tenderness in the mid to lower thoracic spine. There are no masses. Skin: no rashes, warm and dry Neurologic: Equal strength and coordination of upper and lower extremities. Psychiatric: A+Ox3, euthymic affect Results & Data ([facility]) Vital Signs (Past 12 Hours) Vital Signs Temp Pulse Pulse Pulse Resp BP BP 08/10/22 07:42 36.6 C 109 H 18 160/106 H 08/10/22 02:19 36.9 C 103 H 18 166/91 H 176/104 H 08/09/22 23:11 111 H 08/09/22 22:30 36.8 C 109 H 20 157/92 H Pulse Ox O2 Del Method 08/10/22 07:42 97 Room Air 08/10/22 02:19 95 Room Air 08/09/22 23:11 08/09/22 22:30 95 Room Air Diagnostic Findings [place] [phone] CT Scan Report Patient:LENNY CHRISTINE Admit Date:08/05/22 MR#:[id number] Address1:[address] [place] [address] Acct ID:[id number] Address2:[facility] [address] Date:1955 [facility] Zip:[place] [address] Age:67 Location:[facility] Sex:M Room/Bed:[facility] 1-2 Att Phy:Kunal Dorman MD Diagnosis:LOWER BACK PAIN Christine Phy:Maria Ines DamonDSim Service Date:08/05/22 Fam Phy: Interpreting Phy:Дмитрий WootenAdmit Phy:Houston Chavarria DO Ordering Phy:Saji June PA cc: ~ ABDOMEN AND PELVIS CT WITHOUT CONTRAST HISTORY: Acute left-sided flank pain in a patient with history of known osteolytic lesions L rib pain, L1 fx, pelvic lesion = Cr 3.75 TECHNIQUE: Multiaxial CT images of the abdomen and pelvis were performed without contrast. A dose lowering technique was utilized adhering to the principles of ALARA. COMPARISON STUDY: Chest CT of same day, CT lumbar spine August 02, 2022 FINDINGS: Moderate coronary artery calcifications. Unchanged right hemidiaphragmatic elevation. Stable 5 mm nodule within the left lower lobe, i mage 65. No pneumatosis or pneumoperitoneum. The unenhanced spleen, dystrophic pancreas and adrenal glands are unremarkable. Cholelithiasis. Indeterminate 1.5 cm lesion of the right hepatic lobe on image 16 series 3. This lesion appears stable from 10/07/2020 favoring a benign etiology. There are least 4 nonobstructing calculi of the right kidney measuring up to 5 mm. No ureteral calculi or hydronephrosis. Mild prostamegaly. Atherosclerosis of the aorta without aneurysm. No lymphadenopathy. No bowel obstruction or bowel wall thickening. Mild colonic diverticulosis. Noninflamed appendix. Tiny fat filled umbilical hernia. No ascites or mesenteric inflammation. Degenerative changes of the shoulders and spine. Multifocal osteolytic skeletal metastasis are again noted. Acute nondisplaced pathologic fracture of the posterolateral left seventh rib. Unchanged appearance of the acute L1 vertebral body fracture with 25% superior vertebral body height loss. No retropulsion. Additional large bony destruction the posterior medial left eighth rib with partial invasion into the adjacent neural foramen. Large osteolytic lesions of the pelvis are most pronounced in the left iliac wing with bony destruction. Additional lesions of the pelvic ring are most pronounced in the left inferior pubic ramus with areas of bony destruction. IMPRESSION: 1. Numerous osteolytic skeletal lesions are redemonstrated suggestive of metastasis versus multiple myeloma. 2. Acute nondisplaced pathologic fracture involving of the lateral left seventh rib with additional multifocal areas of bony destruction as above. 3. Unchanged appearance of the acute pathologic L1 fracture, stable from 08/02/2022. 4. No bowel obstruction or bowel wall thickening. 5. Right nephrolithiasis. 6. Cholelithiasis. ACT 112: Negative or not required by law. The above report was generated using voice recognition software. It may contain grammatical, syntax or spelling errors. [place], [place] [phone] CT Scan Report Patient:LENNY CHRISTINE Admit Date:08/02/22 MR#:[id number] Address1:[address] [place] [address] Acct ID:[id number] Address2:[place] [address] Date:1955 [facility] Zip:[place] [address] Age:67 Location:ED Sex:M Room/Bed: Att Phy: Diagnosis:LOWER BACK PAIN Christine Phy:Maria Ines DamonDSim Service Date:08/02/22 [facility] Phy: Interpreting Phy:Poncho Hightower MDAdmit Phy: Ordering Phy:Martha Catalan CRNP cc: ~ CT SCAN OF THE LUMBAR SPINE WITHOUT IV CONTRAST CLINICAL HISTORY: Midline back pain. Unspecified injury. COMPARISON STUDY: Abdominal CT dated 04/06/2017. TECHNIQUE: CT scan of the lumbar spine is performed from the lower thoracic spine to the sacrum. Images are reviewed in the axial, sagittal, and coronal planes. IV contrast was not administered for this examination. A dose lowering technique was utilized adhering to the principles of ALARA. CT DOSE: 632.26 mGy.cm FINDINGS: The skeletal structures appear osteopenic. There is an acute superior endplate compression fracture of L1. There is mild loss of height. No significant retropulsion of fragments is seen. Paravertebral edema is noted. No additional acute fracture is identified. Vertebral body height is otherwise maintained throughout the lumbar spine. There is minimal anterolisthesis at L4- L5. Alignment is otherwise preserved. Tiny anterior and lateral marginal osteophytes are seen throughout. The transverse and spinous processes appear intact. There is no spondylolysis. No lytic or blastic lesion is seen throughout the lumbar spine. An osteolytic lesion in the left iliac wing is seen on image #295 and measures up to 2.9 cm. There is only mild degenerative disc space narrowing throughout the lumbar spine. Posterior disc bulges are seen at L3-L4, L4-L5, and L5-S1. Left lateral disc bulges at L4-L5 and L5-S1 contribute to subarticular stenosis. This may impinge on the exiting bilateral L4 and L5 nerve roots. The paraspinous soft tissues are within normal limits. There is moderate atherosclerotic calcification of the abdominal aorta which is normal in caliber. No retroperitoneal lymphadenopathy is seen. A nonobstructing right renal calculus is partially imaged. IMPRESSION: 1. There is an osteolytic lesion in the left iliac wing. This is highly suspicious for bony metastatic disease. Correlate with the patient's oncological history. 2. There is an acute superior endplate compression fracture of L1 with mild loss of height. No significantly retropulsed fragments are seen. 3. No additional acute fracture is identified. 4. Degenerative disc disease as above. ACT 112: Negative or not required by law. Dictated: 08/03/2022 8:53 AM Transcribed: 08/03/2022 9:24 AM [facility] [id number] TONY_Mora Electronically signed by: Poncho Hightower M.D. 08/03/2022 9:36 AM Dictated:08/03/22 0853 Transcribed: 08/03/2224 I spent [10] minutes in preparation for this follow up evaluation including reviewing all the clinical records, reviewing laboratory studies, pathology reports and imaging results. I spent [20] minutes with direct face to face interaction with the patient and/or family including performing a physical exam and answering all questions. I spent [10] minutes documenting this patient's visit.
--- NOTE | 2022-08-10 09:02 | Nephrology Progress Note ---
Date of Service August 10, 2022 Assessment & Plan (1) Hypercalcemia: Plan: * Resolved * Non-PTH mediated hypercalcemia. Elevated alkaline phosphatase. Hypercalcemia is likely due to underlying malignancy/metastatic disease * Primary service provided IVF, Calcitonin and Pamidronate * Continue current management, monitor serum Ca (2) Acute renal failure: Plan: * Clinically dehydrated * No obstruction on 08/05/[address] * Urine sediment is negative for blood or cellular casts * Cr has improved from 3.75 --> 1.9 (baseline Cr 1.27) * Continue IV hydration, monitor PRP (3) Hypertension: Plan: * Increase Amlodipine to 5 mg po daily * Continue PRN IV Labetalol for BP management (4) Metabolic encephalopathy: Plan: * Improved Admission and Anticipated Discharge Date Admission Date: August 05, 2022 Subjective Mr. Adams was evaluated in his hospital room this morning. He denied fever, dyspnea or nausea Review of Systems Constitutional: no fever Eyes: no problem reported Ear, Nose, Mouth, Throat: no problem reported Respiratory: no dyspnea Cardiovascular: no chest pain Gastrointestinal: no abdominal pain Neurologic: no problem reported Physical Exam Constitutional: + ill appearing Eyes: PERRL, conjunctivae normal, anicteric sclerae ENMT: Mouth: + dry oral mucous membranes Neck: trachea midline, no thyromegaly Respiratory: normal respiratory effort, lungs clear to auscultation Cardiovascular: Rate/Rhythm: regular rhythm and + tachycardic Gastrointestinal (Abdomen): Inspection/Auscultation: abdomen normal to inspection Percussion/Palpation: abdomen nontender and no guarding Neurologic: Speech / Cognition: normal speech and normal cognition Results & Data ([facility]) Vital Signs (Past 12 Hours) Vital Signs Temp Pulse Pulse Pulse Resp BP BP 08/10/22 07:42 36.6 C 109 H 18 160/106 H 08/10/22 02:19 36.9 C 103 H 18 166/91 H 176/104 H 08/09/22 23:11 111 H 08/09/22 22:30 36.8 C 109 H 20 157/92 H Pulse Ox O2 Del Method 08/10/22 07:42 97 Room Air 08/10/22 02:19 95 Room Air 08/09/22 23:11 08/09/22 22:30 95 Room Air Laboratory Results Laboratory Tests 08/09/22 08/10/22 08/10/22 05:29 05:31 05:31 WBC 8.31 Hgb 11.4 L Hct 30.6 L Plt Count 245 Sodium 139 138 Potassium 3.4 L 3.6 Chloride 112 H 112 H Carbon Dioxide 18 L 16 L BUN 35 H 40 H Creatinine 2.32 H D 1.90 H D Glucose 74 173 H Uric Acid 9.7 H Calcium 8.3 L 8.0 L PG Care Time/CCT Total # of Minutes Spent Total Time Spent with Patient: Total time spent is greater than 50% in coordination of care (as documented) at patient's floor/unit and/or counseling patient: Coding Level of Care Code 85571 SUB INP/OBS CARE 3/50MIN Diagnoses Hypercalcemia E83.52 Acute renal failure N17.9 Hypertension I10 Metabolic encephalopathy G93.41
[2022-08-10 09:06] LABS: Albumin 3.4 g/dL (3.8-4.8); Alpha 1 Globulin 0.5 g/dL (0.2-0.3); Beta-1-Globulin 0.3 g/dL (0.4-0.6); Beta-2-Globulin 0.3 g/dL (0.2-0.5); Gamma Globulin 0.5 g/dL (0.8-1.7); Monoclonal Protein Band 1 DNR g/dL (NONE DETECTED); Monoclonal Protein Band 2 DNR g/dL (NONE DETECTED); Monoclonal Protein Band 3 DNR g/dL (NONE DETECTED)
[2022-08-10] MEDS ORDERED: INSULIN HUMAN NPH SC SCH (10:00)
[2022-08-10] MEDS: MAGNESIUM SULFATE / D5W 1 GM/100 ML BAG IV SCH ×2 (10:01→12:34)
[2022-08-10] MEDS: SODIUM CHLORIDE 0.9% 1000ML 1,000 ML IV SCH ×2 (10:03→23:21)
[2022-08-10] MEDS ORDERED: amLODIPine BESYLATE 5 MG TAB PO ONE (10:39)
--- NOTE | 2022-08-10 11:05 | Pharmacy Report ---
Pharmacy Glycemic Short Note 2 - Date of Service August 10, 2022 - Glycemic Short BSG Results (Last 24 hours): 08/09/22 08/09/22 08/09/22 11:02 16:17 20:17 Glucose POC Glucose 176 H 217 H 192 H 08/09/22 08/10/22 08/10/22 23:36 04:10 05:31 Glucose 173 H POC Glucose 132 H 172 H 08/10/22 07:24 Glucose POC Glucose 166 H OUTPATIENT ANTIDIABETIC REGIMEN: * Degludec 33 units SQ HS * Ozempic 2mg SQ weekly * Metformin 500mg AM + 1000mg PM * A1c = 6.4% 08/06/22 ASSESSMENT: * Type 2 diabetic admitted for hypercalcemia and myeloma * BSGs acceptable thus far despite receipt of high dose dexamethasone * Will utilize NPH to offset the post-prandial hyperglycemia seen with dexamethasone. Will dc Lantus at this time as NPH will provide a portion of basal needs * Will utilize "high" stress dosing of Novolog at this time given likely insulin resistance today. * Insulin doses will need reevaluated when steroid dc'd PLAN FOR INPATIENT GLYCEMIC CONTROL: * Hold outpatient oral diabetes medications (metformin) * Basal insulin * DC Lantus * Begin NPH 25 units (~0.3units/kg) QAM with PO dexamethasone 40mg * Bolus insulin * NovoLog per scale ACHS or Q6hrs while NPO * Goal Range: Low 110 mg/dL - High 140 mg/dL * Correction Factor: 20 mg/dL/unit * Nutritional / Prandial insulin per carb ratio of 1 unit per 6 grams CHO consumed
[2022-08-10] MEDS ORDERED: LANTUS PER UNIT CHARGE SQ SCH (21:00)
[2022-08-10] MEDS: ATORVASTATIN 40 MG TAB PO SCH (21:13)
--- NOTE | 2022-08-11 06:41 | Hospitalist Progress Note ---
Date of Service August 11, 2022 Assessment & Plan (1) Metabolic encephalopathy: Plan: Haroon is a 67 year old male w/ PMHx of T2DM on insulin, L1 vertebral compression fracture, AZAR, vitamin D deficiency, GERD, gout, HTN admitted for hypercalcemia with concern for underlying malignancy (MM vs. metastatic disease with unknown primary). Light Chain Myeloma Lytic Bone lesion of hip: - IgG, IgA, IgM not elevated - SPEP/UPEP pending -lytic lesion Noted on CT imaging consistent with metastatic disease. -Med oncology - plasma cell neoplasm. Will need arrange confirmatory biopsy that can be done either as an in patient or an outpatient. -Oncology also recommends to start a 4 day course of 40mg of dexamethasone. Will need to monitor glucose d/t DM. -Glucose has been slightly elevated in the lower 200's, will not make any drastic changes at this time due to patient on short course of steroids. -Would consider changing up medication if on longer course of steroid treatment. -Patient will end 4 day course of dexamethasone 08/12. -Radiation oncology consulted - to start palliative radiation as an outpatient and will need pain meds before treatment days. Metabolic encephalopathy: - Patient given Ativan and Haldol on 08/07 due to pulling out IV lines, trying to remove medical equipment, combative with staff. - off and on delirious. continue supportive care with frequent reorientation Electrolytes abnormality Hypercalcemia (resolved) - sec to underlying malignancy - non PTH mediated - Calcium 14.5 on admission -> 8.0 on 08/09 - PTHrP/Vit-D 25 hydroxy/Vit D 1,25 Dihydroxy levels pending. - Given 1 bolus of NSS in ED. - Continue NSS at 100cc/hr - Given Pamidronate 60mg IV x1. - will consider longer-term bone directed therapy on a every 4 week basis. - Discontinue Calcitonin BID due to normal calcium levels - Nephrology following - Hypocalcemia on 08/11. Will get a CMP and ionized calcium on AM labs to assess corrected calcium - Mg and K were low on morning labs, repleted Mg and K on 08/11. Acute back pain: Pathologic fracture likely from metastatic cancer, L2 vertebra, L lateral 7th rib - CT Lumbar spine from 08/02 with evidence of L1 endplate compression fracture with mild loss of height, as well as acute nondisplaced pathologic fracture of lateral 7th rib. Has scheduled appointment w/ Dr. Duncan 09/02. - Biopsy planned post-discharge -Tylenol/morphine as needed for pain. Pain better controlled, though with movement it is still very painful. -Will consider adding in more pain management medication once off steroids Acute renal failure: - Creatinine 3.75 on admission, which continues to improve -> 1.6 on 08/11 - Baseline creatinine 1.2-1.4. - Most likely secondary to hypercalcemia. - Continue IV NSS 100 ml/hr - Monitor with AM labs. - Nephrology signed off due to patient nearing baseline on 08/11. Elevated troponin: - Troponin 26.9 on admission, has since downtrended. - Suspect due to poor clearance from [facility]. T2DM: - Takes basal insulin at home 33U daily. Holding remaining home DM2 medications. - Lantus 17U BID. SSI while inpatient with BSG checks qACHS. - A1c 6.4%. - Glycemic consult ordered - Monitor for blood glucose changes following dexamethasone administration HTN: - Continue home lisinopril, metoprolol, HCTZ. - For now, labetalol 10mg IV q8h ordered as needed for BP >180 systolic. - Patient's metoprolol home dose was stopped on 08/07 due to having issues with PO intake. Will restart home metoprolol given patient's continued tachycardia on 08/11. HLD: - Continue home atorvastatin and baby aspirin. F/E/N/GI: Carb Consistent (no longer dialysis renal diet) DVT Prophylaxis: Heparin 5000u SQ BID Code status: Full code. Patient would not like for sustained measures if unable to obtain ROSC after 1 round of CPR, would not want more than one spontaneous trial of breathing if intubated. Dispo: med surg, Will need placement on discharge, CM notified and following. May be able to go on Monday. Thank you for allowing me to participate in the care of your patient. -Dr. Poncho Moreno PGY1 (2) Closed L1 vertebral fracture: (3) Lytic bone lesion of hip: (4) Acute back pain: (5) Acute renal failure: (6) Hypercalcemia: (7) Elevated troponin level: (8) Fatigue: (9) Hypertension: (10) Dyslipidemia: (11) Type 2 diabetes mellitus: (12) Light chain myeloma: Admission and Anticipated Discharge Date Admission Date: August 05, 2022 Supervising Physician Co-Signing Physician Notes Resident Physician Supervision Note: I independently interviewed and examined the patient and verified the wylie history and physical, reviewed labs and image studies and agree with resident findings and care plan. Subjective Patient was seen beside this AM. States that he is feeling better and that his pain is getting better. Rates that his pain is currently a 2/10 pain and is much better than yesterday. She denies any other issues or concerns at this time. Review of Systems Review of Systems: All systems reviewed & are unremarkable except as noted in HPI & below Physical Exam Constitutional: WD/WN, vitals as above Respiratory: normal respiratory effort, lungs clear to auscultation Cardiovascular: RRR, no murmur, no edema Rate/Rhythm: regular rhythm and + tachycardic Heart Sounds: normal S1 and normal S2; no murmur Gastrointestinal (Abdomen): normal bowel sounds, soft, nontender, no hepatosplenomegaly Musculoskeletal: no cyanosis or clubbing, extremities motor strength 5/5 Skin: no rashes, warm and dry Psychiatric: Orientation: alert and oriented x 3 Results & Data Results & Data ([facility]) Vital Signs (Past 12 Hours) Vital Signs Temp Pulse Pulse Resp BP BP Pulse Ox 08/11/22 02:56 36.4 C L 90 20 156/84 H 96 08/11/22 00:58 94 H 08/10/22 23:45 36.5 C 98 H 18 140/78 96 08/10/22 20:06 36.4 C L 93 H 20 143/66 H 95 O2 Del Method 08/11/22 02:56 Room Air 08/11/22 00:58 08/10/22 23:45 Room Air 08/10/22 20:06 Room Air Resident Activity Tracking Resident Involvement: Resident Care Provided Care Provided: Adult Hospital Medicine
[2022-08-11] MEDS: dexAMETHasone 4 MG TAB PO SCH (07:34)
[2022-08-11] MEDS: THIAMINE HCL 100 MG in SYRINGE 9 ML IV SCH (07:34)
[2022-08-11] MEDS: amLODIPine BESYLATE 5 MG TAB PO SCH (07:34)
[2022-08-11] MEDS: ASPIRIN 81 MG ECTAB PO SCH (07:34)
[2022-08-11] MEDS: GLUCOSAMINE SULFATE 500 MG CAP PO SCH (07:34)
[2022-08-11] MEDS: HEPARIN SOD 5,000 UNIT/0.5 ML VIAL SQ SCH ×2 (07:35→20:25)
[2022-08-11 08:00] LABS: Hematocrit (blood only) 29.7 % (40.1-51.0); Hemoglobin 11.3 g/dl (14.0-18.0); Mean Corpuscular Hemoglobin 32.8 pg (25.0-34.0); Mean Corpuscular Volume 86.3 fL (80.0-100.0); Mean Platelet Volume 9.9 fL (9.4-12.4); Platelet Count 255 K/uL (130-400); RDW Standard Deviation 40.7 fL (36.4-46.3); Red Blood Count 3.44 M/uL (4.63-6.08); White Blood Count 10.11 K/ul (4.8-10.8)
[2022-08-11 08:01] LABS: ALC (manual) 0.51 K/uL (1.2-3.4); Echinocytes 1+; Lymphocytes # (manual) 0.51 K/uL (1.2-3.4); Lymphocytes % (manual) 5 %; Monocytes % (manual) 2 %; Neutrophils % (manual) 93 %; Polychromasia 1+; Spherocytes 1+
[2022-08-11] MEDS: INSULIN ASPART PER UNIT SC SCH ×4 (08:32→20:25)
[2022-08-11] MEDS: INSULIN HUMAN NPH SC SCH (08:33)
--- NOTE | 2022-08-11 08:42 | Nephrology Progress Note ---
Date of Service August 11, 2022 Assessment & Plan (1) Acute renal failure: Plan: * Presented w/ dehydration * No obstruction on 08/05/[address] * Urine sediment is negative for blood or cellular casts * Cr has improved from 3.75 --> 1.6 (baseline Cr 1.27) following IV hydration * Kidney function is nearing baseline. No further Nephrology evaluation indicated at this time. Will sign off. Please call if further assistance is needed (2) Hypertension: Plan: * Improved. Continue Amlodipine 5 mg po daily * Continue PRN IV Labetalol for BP management (3) Hypercalcemia: Plan: * Resolved * Non-PTH mediated hypercalcemia. Elevated alkaline phosphatase. Hypercalcemia is likely due to underlying malignancy/metastatic disease * Primary service provided IVF, Calcitonin and Pamidronate Admission and Anticipated Discharge Date Admission Date: August 05, 2022 Subjective Mr. Adams was evaluated in his hospital room this morning. He was alert but confused and not following commands Review of Systems Review of Systems: Unobtainable due to cognitive status Physical Exam 2 Eyes: PERRL, conjunctivae normal, anicteric sclerae ENMT: external ear and nose normal, oropharynx normal Neck: trachea midline, no thyromegaly Respiratory: normal respiratory effort, lungs clear to auscultation Cardiovascular: RRR, no murmur, no edema Gastrointestinal (Abdomen): normal bowel sounds, soft, nontender, no hepatosplenomegaly Neurologic: + confused Results & Data ([facility]) Vital Signs (Past 12 Hours) Vital Signs Temp Pulse Pulse Resp BP BP Pulse Ox 08/11/22 07:17 36.4 C L 87 19 135/80 95 08/11/22 02:56 36.4 C L 90 20 156/84 H 96 08/11/22 00:58 94 H 08/10/22 23:45 36.5 C 98 H 18 140/78 96 O2 Del Method 08/11/22 07:17 Room Air 08/11/22 02:56 Room Air 08/11/22 00:58 08/10/22 23:45 Room Air Laboratory Results Laboratory Tests 08/06/22 08/11/22 08/11/22 01:36 06:21 06:21 WBC 10.11 Hgb 11.3 L Hct 29.7 L Plt Count 255 Sodium 139 Potassium 3.4 L Chloride 113 H Carbon Dioxide 17 L BUN 39 H Creatinine 1.67 H Glucose 209 H Calcium 7.1 L Albumin 3.7 PG Care Time/CCT Total # of Minutes Spent Total Time Spent with Patient: Total time spent is greater than 50% in coordination of care (as documented) at patient's floor/unit and/or counseling patient: Coding Level of Care Code 35895 SUB INP/OBS CARE 3/50MIN Diagnoses Acute renal failure N17.9 Hypertension I10 Hypercalcemia E83.52
[2022-08-11 08:47] LABS: Abnormal Protein Band 1 1396 mg/24 h (NONE DETECTED); Abnormal Protein Band 2 DNR mg/24 h (NONE DETECTED); Abnormal Protein Band 3 DNR mg/24 h (NONE DETECTED); Creatinine, 24 hr Urine 1.61 g/24 h (0.50-2.15); Protein, Urine 24 Hour 2138 mg/24 h (<150); Ur Protein/Creatinine Rat mg/g 1326 mg/g creat (<100); Urine Protein/Creatinine Ratio 1.326 (<0.100)
[2022-08-11] MEDS: SODIUM CHLORIDE 0.9% 1000ML 1,000 ML IV SCH (09:09)
[2022-08-11 09:22] LABS: BUN Creatinine Ratio 23.4 (10-20); Calcium 7.1 mg/dl (8.5-10.1); Creatinine Clr Calc Pharmacy 44.8 ml/min; Est GFR (African American) 47.7 ml/min; Est GFR (Non-African American) 41.1 ml/min; Magnesium 1.6 mg/dl (1.7-2.4); Potassium 3.4 mmol/L (3.5-5.1)
--- NOTE | 2022-08-11 10:58 | Pharmacy Report ---
Pharmacy Glycemic Short Note 2 - Date of Service August 11, 2022 - Glycemic Short BSG Results (Last 24 hours): 08/10/22 08/10/22 08/10/22 12:30 12:32 16:25 Glucose POC Glucose 226 H 216 H 180 H 08/10/22 08/11/22 08/11/22 21:26 06:21 07:16 Glucose 209 H POC Glucose 221 H 238 H OUTPATIENT ANTIDIABETIC REGIMEN: * Degludec 33 units SQ HS * Ozempic 2mg SQ weekly * Metformin 500mg AM + 1000mg PM * A1c = 6.4% 08/06/22 ASSESSMENT: 08/11 * BSGs elevated above goal over last 24 hrs - high dose dexamethasone likely responsible * Fasting BSG 209-238 this AM after having received 25 units NPH yesterday AM. Will continue the same NPH dose, however will add a PM dose of Lantus. NPH will need to be held after last dose of dexamethasone given on 08/12. * Post-prandial BSGs 180-226 yesterday. Will increase prandial insulin dose. 08/10 * Type 2 diabetic admitted for hypercalcemia and myeloma * BSGs acceptable thus far despite receipt of high dose dexamethasone * Will utilize NPH to offset the post-prandial hyperglycemia seen with dexamethasone. Will dc Lantus at this time as NPH will provide a portion of basal needs * Will utilize "high" stress dosing of Novolog at this time given likely insulin resistance today. * Insulin doses will need reevaluated when steroid dc'd PLAN FOR INPATIENT GLYCEMIC CONTROL: * Hold outpatient oral diabetes medications (metformin) * Basal insulin * Add Lantus 8 units Q HS * Continue NPH 25 units (~0.3units/kg) QAM with PO dexamethasone 40mg * Bolus insulin * NovoLog per scale ACHS or Q6hrs while NPO * Goal Range: Low 110 mg/dL - High 140 mg/dL * Correction Factor: 20 mg/dL/unit * Nutritional / Prandial insulin per carb ratio of 1 unit per 5 grams CHO consumed
[2022-08-11] MEDS ORDERED: POTASSIUM CHLORIDE CRTAB 20 MEQ TABCR PO STA (13:41)
[2022-08-11] MEDS: MAGNESIUM SULFATE / D5W 1 GM/100 ML BAG IV SCH ×4 (15:30→21:08)
[2022-08-11] MEDS: ATORVASTATIN 40 MG TAB PO SCH (20:25)
[2022-08-11] MEDS ORDERED: LANTUS PER UNIT CHARGE SQ SCH (21:00)
[2022-08-11] MEDS: METOPROLOL TARTRATE 50 MG TAB PO SCH (22:56)
[2022-08-12] MEDS: ACETAMINOPHEN 325 MG TAB PO PRN ×2 (05:04→13:31)
[2022-08-12 06:55] LABS: Basophils # (auto) 0.01 K/uL (0-0.2); Basophils % (auto) 0.1 %; Hematocrit (blood only) 32.8 % (40.1-51.0); Hemoglobin 12.1 g/dl (14.0-18.0); Immature Granulocytes # (auto) 0.11 K/uL (0.00-0.02); Immature Granulocytes % (auto) 1.1 %; Lymphocytes # (auto) 0.53 K/uL (1.2-3.4); Lymphocytes % (auto) 5.2 %; Mean Corpuscular Hemoglobin 32.1 pg (25.0-34.0); Mean Corpuscular Hgb Conc 36.9 g/dL (32.0-36.0); Mean Platelet Volume 9.7 fL (9.4-12.4); Monocytes # (auto) 0.48 K/uL (0.24-0.82); Monocytes % (auto) 4.7 %; Neutrophils # (auto) 9.15 K/uL (1.4-6.5); Neutrophils % (auto) 88.9 %; Platelet Count 285 K/uL (130-400); Red Blood Count 3.77 M/uL (4.63-6.08); White Blood Count 10.28 K/ul (4.8-10.8)
--- NOTE | 2022-08-12 06:55 | Hospitalist Progress Note ---
Date of Service August 12, 2022 Assessment & Plan (1) Metabolic encephalopathy: Plan: Haroon is a 67 year old male w/ PMHx of T2DM on insulin, L1 vertebral compression fracture, AZAR, vitamin D deficiency, GERD, gout, HTN admitted for hypercalcemia with concern for underlying malignancy (MM vs. metastatic disease with unknown primary). Light Chain Myeloma Lytic Bone lesion of hip: - IgG, IgA, IgM not elevated - SPEP/UPEP pending -lytic lesion Noted on CT imaging consistent with metastatic disease. -Med oncology - plasma cell neoplasm. Will need arrange confirmatory biopsy that can be done as an outpatient. -Oncology recommended a 4 day course of 40mg of dexamethasone which ended on 08/12. Patient's glucose remained slightly elevated but was stable during this time. -Radiation oncology consulted - started palliative radiation on 08/12. Will monitor how patient does with treatment and will most likely D/C on 08/13. Metabolic encephalopathy: - Patient given Ativan and Haldol on 08/07 due to pulling out IV lines, trying to remove medical equipment, combative with staff. - off and on delirious. None since this am. continue supportive care with frequent reorientation - No other issues since 08/07. Electrolytes abnormality Hypercalcemia (resolved) - sec to underlying malignancy - non PTH mediated - Calcium 14.5 on admission -> 8.0 on 08/09 - PTHrP/Vit-D 25 hydroxy/Vit D 1,25 Dihydroxy levels pending. - Given 1 bolus of NSS in ED. - Continue NSS at 100cc/hr - Given Pamidronate 60mg IV x1. - will consider longer-term bone directed therapy on a every 4 week basis. - Discontinue Calcitonin BID due to normal calcium levels - Hypocalcemia on 08/11 and 08/12. Corrected calcium was 7.1. - Mg and K were low on morning labs, repleted Mg and K on 08/11. Acute back pain: Pathologic fracture likely from metastatic cancer, L2 vertebra, L lateral 7th rib - CT Lumbar spine from 08/02 with evidence of L1 endplate compression fracture with mild loss of height, as well as acute nondisplaced pathologic fracture of lateral 7th rib. Has scheduled appointment w/ Dr. Duncan 09/02. - Biopsy planned post-discharge -Tylenol/morphine as needed for pain. Pain better controlled, though with movement it is still very painful. -Will consider adding in more pain management medication once off steroids Acute renal failure: - Creatinine 3.75 on admission, which continues to improve -> 1.52 on 08/12 - Baseline creatinine 1.2-1.4. - Most likely secondary to hypercalcemia. - Continue IV NSS 100 ml/hr - Monitor with AM labs. - Nephrology signed off due to patient nearing baseline on 08/11. Elevated troponin: - Troponin 26.9 on admission, has since downtrended. - Suspect due to poor clearance from [facility]. T2DM: - Takes basal insulin at home 33U daily. Holding remaining home DM2 medications. - Lantus 17U BID. SSI while inpatient with BSG checks qACHS. - A1c 6.4%. - Glycemic consult ordered - Monitor for blood glucose changes following dexamethasone administration HTN: - Continue home lisinopril, metoprolol, HCTZ. - For now, labetalol 10mg IV q8h ordered as needed for BP >180 systolic. - Patient's metoprolol home dose was stopped on 08/07 due to having issues with PO intake. Will restart home metoprolol given patient's continued tachycardia on 08/11. HLD: - Continue home atorvastatin and baby aspirin. F/E/N/GI: Carb Consistent (no longer dialysis renal diet) DVT Prophylaxis: Heparin 5000u SQ BID Code status: Full code. Patient would not like for sustained measures if unable to obtain ROSC after 1 round of CPR, would not want more than one spontaneous trial of breathing if intubated. Dispo: med surg, patient declines rehab at discharge, if doing okay will most likely be D/C in the AM Thank you for allowing me to participate in the care of your patient. -Dr. Poncho Moreno PGY1 (2) Closed L1 vertebral fracture: (3) Lytic bone lesion of hip: (4) Acute back pain: (5) Acute renal failure: (6) Hypercalcemia: (7) Elevated troponin level: (8) Fatigue: (9) Hypertension: (10) Dyslipidemia: (11) Type 2 diabetes mellitus: (12) Light chain myeloma: Admission and Anticipated Discharge Date Admission Date: August 05, 2022 Supervising Physician Co-Signing Physician Notes Resident Physician Supervision Note: I independently interviewed and examined the patient and verified the wylie history and physical, reviewed labs and image studies and agree with resident findings and care plan. Subjective Patient was seen beside this AM. He has no issues or concerns at this time. He states his pain is a 1/10. Review of Systems Review of Systems: All systems reviewed & are unremarkable except as noted in HPI & below Physical Exam Eyes: PERRL, conjunctivae normal, anicteric sclerae ENMT: external ear and nose normal, oropharynx normal Neck: trachea midline, no thyromegaly Respiratory: normal respiratory effort, lungs clear to auscultation Cardiovascular: RRR, no murmur, no edema Gastrointestinal (Abdomen): normal bowel sounds, soft, nontender, no hepatosplenomegaly Skin: no rashes, warm and dry Results & Data Results & Data ([facility]) Vital Signs (Past 12 Hours) Vital Signs Temp Pulse Resp BP BP Pulse Ox O2 Del Method 08/11/22 23:46 Room Air 08/11/22 23:07 36.5 C 89 16 157/84 H 94 Room Air 08/11/22 22:53 94 H 18 161/84 H 96 Room Air Resident Activity Tracking Resident Involvement: Resident Care Provided Care Provided: Adult Hospital Medicine
[2022-08-12 07:25] LABS: Albumin Globulin Ratio 1.5 (0.9-2); Albumin Level 3.4 gm/dl (3.4-5.0); BUN Creatinine Ratio 26.3 (10-20); Bilirubin,Total 0.5 mg/dl (0.2-1.0); Calcium 6.6 mg/dl (8.5-10.1); Creatinine Clr Calc Pharmacy 49.2 ml/min; Est GFR (African American) 53.4 ml/min; Est GFR (Non-African American) 46.1 ml/min; Globulin 2.2 gm/dl (2.5-4.0); Magnesium 1.9 mg/dl (1.7-2.4); Potassium 3.8 mmol/L (3.5-5.1); Total Protein 5.6 gm/dl (6.0-8.3)
[2022-08-12] MEDS: INSULIN ASPART PER UNIT SC SCH ×4 (08:39→22:20)
[2022-08-12] MEDS: LANTUS PER UNIT CHARGE SC SCH ×2 (08:40→22:20)
[2022-08-12] MEDS: INSULIN HUMAN NPH SC SCH (08:41)
[2022-08-12] MEDS: dexAMETHasone 4 MG TAB PO SCH (08:48)
[2022-08-12] MEDS: METOPROLOL TARTRATE 50 MG TAB PO SCH ×2 (08:48→22:25)
[2022-08-12] MEDS: THIAMINE HCL 100 MG in SYRINGE 9 ML IV SCH (08:48)
[2022-08-12] MEDS: ASPIRIN 81 MG ECTAB PO SCH (08:49)
[2022-08-12] MEDS: amLODIPine BESYLATE 5 MG TAB PO SCH (08:49)
[2022-08-12] MEDS: GLUCOSAMINE SULFATE 500 MG CAP PO SCH (08:50)
[2022-08-12] MEDS: HEPARIN SOD 5,000 UNIT/0.5 ML VIAL SQ SCH ×2 (08:50→22:22)
--- NOTE | 2022-08-12 13:05 | Pharmacy Report ---
Pharmacy Glycemic Short Note 2 - Date of Service August 12, 2022 - Glycemic Short BSG Results (Last 24 hours): 08/11/22 08/11/22 08/12/22 16:37 20:04 06:41 Glucose 205 H POC Glucose 203 H 179 H 08/12/22 08/12/22 07:48 11:26 Glucose POC Glucose 215 H 219 H OUTPATIENT ANTIDIABETIC REGIMEN: * Degludec 33 units SQ HS * Ozempic 2mg SQ weekly * Metformin 500mg AM + 1000mg PM * A1c = 6.4% 08/06/22 ASSESSMENT: 08/12: * Fasting elevated this morning, will start BID lantus * Dexamethasone 40 mg given this morning- this is the last dose of the 4 day regimen, will loosen Novolog parameters starting 08/13 08/11 * BSGs elevated above goal over last 24 hrs - high dose dexamethasone likely responsible * Fasting BSG 209-238 this AM after having received 25 units NPH yesterday AM. Will continue the same NPH dose, however will add a PM dose of Lantus. NPH will need to be held after last dose of dexamethasone given on 08/12. * Post-prandial BSGs 180-226 yesterday. Will increase prandial insulin dose. 08/10 * Type 2 diabetic admitted for hypercalcemia and myeloma * BSGs acceptable thus far despite receipt of high dose dexamethasone * Will utilize NPH to offset the post-prandial hyperglycemia seen with dexamethasone. Will dc Lantus at this time as NPH will provide a portion of basal needs * Will utilize "high" stress dosing of Novolog at this time given likely insulin resistance today. * Insulin doses will need reevaluated when steroid dc'd PLAN FOR INPATIENT GLYCEMIC CONTROL: * Hold outpatient oral diabetes medications (metformin) * Basal insulin * Lantus 8 units BID * Continue NPH 25 units (~0.3units/kg) QAM with PO dexamethasone 40mg - last dose today * Bolus insulin * NovoLog per scale ACHS or Q6hrs while NPO * Goal Range: Low 110 mg/dL - High 140 mg/dL * Correction Factor: 20 mg/dL/unit * Nutritional / Prandial insulin per carb ratio of 1 unit per 5 grams CHO consumed * Start correction factor 25 mg/dL/unit on 08/13 * Start 1 unit per 8 grams CHO consumed 08/13
[2022-08-12 17:23] LABS: Calcium, Random Urine 9.1 mg/dL (see note)
[2022-08-12] MEDS: ATORVASTATIN 40 MG TAB PO SCH (22:24)
[2022-08-13 06:38] LABS: Basophils # (auto) 0.01 K/uL (0-0.2); Basophils % (auto) 0.1 %; Hematocrit (blood only) 34.6 % (40.1-51.0); Hemoglobin 12.8 g/dl (14.0-18.0); Immature Granulocytes # (auto) 0.19 K/uL (0.00-0.02); Immature Granulocytes % (auto) 2.2 %; Lymphocytes # (auto) 0.58 K/uL (1.2-3.4); Lymphocytes % (auto) 6.7 %; Mean Corpuscular Hemoglobin 32.7 pg (25.0-34.0); Mean Corpuscular Volume 88.3 fL (80.0-100.0); Mean Platelet Volume 9.8 fL (9.4-12.4); Monocytes # (auto) 0.49 K/uL (0.24-0.82); Monocytes % (auto) 5.7 %; Neutrophils % (auto) 85.3 %; Platelet Count 291 K/uL (130-400); RDW Coefficient of Variation 13.1 % (11.5-14.5); Red Blood Count 3.92 M/uL (4.63-6.08); White Blood Count 8.67 K/ul (4.8-10.8)
[2022-08-13 07:08] LABS: Albumin Globulin Ratio 1.5 (0.9-2); Albumin Level 3.3 gm/dl (3.4-5.0); BUN Creatinine Ratio 26.2 (10-20); Bilirubin,Total 0.6 mg/dl (0.2-1.0); Calcium 6.6 mg/dl (8.5-10.1); Creatinine Clr Calc Pharmacy 53.1 ml/min; Est GFR (African American) 58.5 ml/min; Est GFR (Non-African American) 50.5 ml/min; Globulin 2.2 gm/dl (2.5-4.0); Potassium 3.6 mmol/L (3.5-5.1); Total Protein 5.5 gm/dl (6.0-8.3)
[2022-08-13] MEDS: ACETAMINOPHEN 325 MG TAB PO PRN (07:17)
--- NOTE | 2022-08-13 07:21 | Discharge Summary ---
Date of Service August 13, 2022 Admission HPI Per Admitting Provider Haroon is a 67 year old male w/ PmHx T2DM on insulin, L1 vertebral compression fracture, AZAR, vitamin D deficiency, GERD, gout, HTN coming in to the hospital for worsening lower back and LLQ abdominal pain. 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 The generator weighs about 300lbs each according to the patient. He states that after that happened he had R shoulder pain as well as lower back pain. He was told by his PCP office he likely has a rotator cuff tear/injury. The pain got worse a few weeks after the initial incident and so early July he came into the ED for the back pain. In the ED a L1 fracture w/ loss of height as well as lytic bone lesion of L anterior pelvic bone was seen on CT and he was told to follow up with spine surgery for further management. Patient states he was scheduled to go to Dr. Yennifer han's office at the beginning of August for initial evaluation and told that follow up after that may be mid August. Since that ED visit patient states that the pain has not subsided, gets marginally better with diclofenac, however no change with icy-hot. He states the pain is mostly at the anterior LLQ and pain at that area is a 5/10, he also has some lower back pain 3/10 at the mid back of the lumbar region. He states it's worse with getting up or sitting up from his water bed although gets a little better with walking. Patient denies any fevers, chills, night sweats, unintentional weight loss or weight gain, diarrhea, vomiting, chest pain, headaches, changes in vision or hearing, numbness or tingling, focal weakness. Upon further analysis of his [employer] chart patient was called on 10/07/2020 for development of shortness of breath, 12 pound weight loss over past year without trying, and coughing up pink/sometimes red sputum. He had a cardiac workup at that time which was negative and told to go to ED for further imaging and workup. He had CTA chest and CXR which were negative aside for 2 subcentimeter indeterminate pulmonary nodules (5mm). Admission Exam Per Admitting Provider Constitutional: WD/WN, vitals as above Eyes: PERRL, conjunctivae normal, anicteric sclerae Respiratory: normal respiratory effort, lungs clear to auscultation Cardiovascular: RRR, no murmur, no edema Gastrointestinal (Abdomen): BS+, obese habitus, soft, tender to palpation LLQ as well as at the L ASIS. Musculoskeletal: no cyanosis or clubbing, extremities motor strength 5/5 Skin: no rashes, warm and dry Psychiatric: A+Ox3, euthymic affect Principal Diagnosis Light Chain Myeloma Discharge Exam Constitutional: well-appearing, no acute distress HEENT: NCAT, no conjunctival injection CV: regular rhythm, no murmur appreciated, extremities well-perfused, no LE edema Resp: CTABL, no wheezes/rales/rhonchi appreciated, no increased work of breathing GI: soft, nondistended, nontender, BS normoactive MSK: no gross deformities appreciated Skin: warm, dry, no rash appreciated Neuro: alert, oriented, no focal neurologic deficit appreciated Discharge Data Allergies Allergy/AdvReac Type Severity Reaction Status Date / Time amoxicillin [From Augmentin] Allergy Intermediate SWELLING Verified 08/05/22 21:54 AROUND EYES clavulanic acid Allergy Intermediate SWELLING Verified 08/05/22 21:54 AROUND THE EYES Penicillins Allergy Intermediate AUGMENTIN Verified 08/05/22 21:54 - SWELLING AROUND THE EYES diflunisal AdvReac Intermediate VOMITING Verified 08/05/22 21:54 valsartan [From Diovan] AdvReac Intermediate Vomiting Verified 08/05/22 21:54 Consultations 08/05/22 21:33 ED Decision to Admit Stat 08/06/22 00:17 Consult Oncology Stat 08/06/22 10:22 Consult Orthopedic Surgery Routine 08/07/22 07:16 Consult Nephrology Routine 08/09/22 09:30 Consult Radiation Oncology Routine Ordered Studies Chest CT 08/05/22 21:08 CT chest diagnostic wo con CT DOSE: 1150.27 mGy.cm HISTORY: L rib pain, L1 fx, pelvic lesion = Cr 3.75 TECHNIQUE: Multiaxial CT images of the chest were performed without contrast. A dose lowering technique was utilized adhering to the principles of ALARA. COMPARISON: Chest CTA 10/07/2020. FINDINGS: There are multiple lytic/destructive lesion seen scattered throughout the spine, ribs, manubrium, right clavicle, and left scapula consistent with metastatic disease. There are pathologic fractures involving the right medial clavicle and left seventh rib. The abdominal structures will be reported on the same day abdomen and pelvis CT. No pleural or pericardial effusions. The heart is normal in size. Normal caliber esophagus and thoracic aorta. Mild elevation of the right hemidiaphragm. No mediastinal, hilar, or axillary lymphadenopathy. No pneumothorax. Trace mucoid material within the trachea. Mild dependent changes seen at the lung bases. A stable 5 no new pulmonary nodules identified. Mm nodule within the left lower lobe on image 171. IMPRESSION: 1. Multiple scattered lytic/destructive osseous lesions as described above consistent with metastatic disease. These result in pathologic fractures of the right medial clavicle and left seventh rib. No pneumothorax 2. Stable 5 mm nodule within the left lower lobe. No new pulmonary nodules identified. 3. The abdominal structures will be reported separately. ACT 112: Negative or not required by law. Electronically signed by: Keshawn Manzo M.D. 08/06/2022 7:40 AM Abdomen/Pelvis CT 08/05/22 21:[address] WITHOUT CONTRAST HISTORY: Acute left-sided flank pain in a patient with history of known osteolytic lesions L rib pain, L1 fx, pelvic lesion = Cr 3.75 TECHNIQUE: Multiaxial CT images of the abdomen and pelvis were performed without contrast. A dose lowering technique was utilized adhering to the principles of ALARA. COMPARISON STUDY: Chest CT of same day, CT lumbar spine August 02, 2022 FINDINGS: Moderate coronary artery calcifications. Unchanged right hemidiaphragmatic elevation. Stable 5 mm nodule within the left lower lobe, image 65. No pneumatosis or pneumoperitoneum. The unenhanced spleen, dystrophic pancreas and adrenal glands are unremarkable. Cholelithiasis. Indeterminate 1.5 cm lesion of the right hepatic lobe on image 16 series 3. This lesion appears stable from 10/07/2020 favoring a benign etiology. There are least 4 nonobstructing calculi of the right kidney measuring up to 5 mm. No ureteral calculi or hydronephrosis. Mild prostamegaly. Atherosclerosis of the aorta without aneurysm. No lymphadenopathy. No bowel obstruction or bowel wall thickening. Mild colonic diverticulosis. Noninflamed appendix. Tiny fat filled umbilical hernia. No ascites or mesenteric inflammation. Degenerative changes of the shoulders and spine. Multifocal osteolytic skeletal metastasis are again noted. Acute nondisplaced pathologic fracture of the posterolateral left seventh rib. Unchanged appearance of the acute L1 vertebral body fracture with 25% superior vertebral body height loss. No retropulsion. Additional large bony destruction the posterior medial left eighth rib with partial invasion into the adjacent neural foramen. Large osteolytic lesions of the pelvis are most pronounced in the left iliac wing with bony destruction. Additional lesions of the pelvic ring are most pronounced in the left inferior pubic ramus with areas of bony destruction. IMPRESSION: 1. Numerous osteolytic skeletal lesions are redemonstrated suggestive of metastasis versus multiple myeloma. 2. Acute nondisplaced pathologic fracture involving of the lateral left seventh rib with additional multifocal areas of bony destruction as above. 3. Unchanged appearance of the acute pathologic L1 fracture, stable from 08/02/2022. 4. No bowel obstruction or bowel wall thickening. 5. Right nephrolithiasis. 6. Cholelithiasis. ACT 112: Negative or not required by law. The above report was generated using voice recognition software. It may contain grammatical, syntax or spelling errors. Electronically signed by: Дмитрий Wooten M.D. 08/06/2022 7:53 AM 08/05/22 21:08 CT chest diagnostic wo con Stat 08/05/22 21:09 CT abd pelvis wo con Stat 08/10/22 11:36 CT guide rad therapy pelvis Routine Hospital Course (1) Metabolic encephalopathy: Haroon is a 67 year old male w/ PMHx of T2DM on insulin, L1 vertebral compression fracture, AZAR, vitamin D deficiency, GERD, gout, HTN admitted for hypercalcemia with concern for underlying malignancy (MM vs. metastatic disease with unknown primary). Light Chain Myeloma Lytic Bone lesion of hip: - IgG, IgA, IgM not elevated - SPEP/UPEP pending -lytic lesion Noted on CT imaging consistent with metastatic disease. -Med oncology - plasma cell neoplasm. Will need arrange confirmatory biopsy that can be done as an outpatient. -Oncology recommended a 4 day course of 40mg of dexamethasone which ended on 08/12. Patient's glucose remained slightly elevated but was stable during this time. -Radiation oncology consulted - started palliative radiation on 08/12. -Will follow up with oncology and radiation oncology after discharge. -He should also f/u with his PCP in one week Metabolic encephalopathy: - Patient given Ativan and Haldol on 08/07 due to pulling out IV lines, trying to remove medical equipment, combative with staff. - No other issues since 08/07. Hypercalcemia (resolved) - sec to underlying malignancy - non PTH mediated - Calcium 14.5 on admission -> 8.0 on 08/09 - PTHrP/Vit-D 25 hydroxy/Vit D 1,25 Dihydroxy levels pending. - Given 1 bolus of NSS in ED. - Continue NSS at 100cc/hr - Given Pamidronate 60mg IV x1. - will consider longer-term bone directed therapy on a every 4 week basis. - Discontinued Calcitonin BID due to normal calcium levels - Stable and WNL at time of discharge. - Should f/u with PCP in 1 week and have repeat labs. Acute back pain: Pathologic fracture likely from metastatic cancer, L2 vertebra, L lateral 7th rib -CT Lumbar spine from 08/02 with evidence of L1 endplate compression fracture with mild loss of height, as well as acute nondisplaced pathologic fracture of lateral 7th rib. Has scheduled appointment w/ Dr. Duncan 09/02. -Biopsy planned post-discharge -Received tylenol/morphine prn for pain. -continue home oxycodone prn on discharge Acute renal failure: - Most likely secondary to hypercalcemia. - Creatinine 3.75 on admission, which continues to improve with IV hydration -> 1.41 at time of discharge. Elevated troponin: - Troponin 26.9 on admission, has since downtrended. No s/s of ACS. - Suspected due to poor clearance from YOSI. T2DM: - Takes basal insulin at home 33U daily. Holding remaining home DM2 medications. - Lantus 17U BID. SSI while inpatient with BSG checks qACHS. - A1c 6.4%. - Blood glucose stable during steroid use. - to resume home meds on discharge HTN: - Continue home lisinopril, metoprolol, HCTZ. - Patient's metoprolol home dose was stopped on 08/07 due to having issues with PO intake. Will restart home metoprolol given patient's continued tachycardia on 08/11. - Started on amlodipine 5mg. HLD: - Continue home atorvastatin and baby aspirin. (2) Closed L1 vertebral fracture: (3) Lytic bone lesion of hip: (4) Acute back pain: (5) Acute renal failure: (6) Hypercalcemia: (7) Elevated troponin level: (8) Fatigue: (9) Hypertension: (10) Dyslipidemia: (11) Type 2 diabetes mellitus: (12) Light chain myeloma: Total Time Total Time Spent Total Time Spent (In Minutes): 20 Discharge Plan Discharge Items Patient Disposition: Home - Home Health Services Reason For Visit: LOWER BACK PAIN Discharge Diagnosis: Light Chain Myeloma Activity: Per Instructions section Non-emergency contact: Primary Care Provider and Oncologist Call non-emergency contact if: you have any medication questions, your pain is unusual for you and your temperature is above 101.5 Follow-up/Referrals: Hugo Santana MD [Physician] - (We have requested a follow-up appointment with Dr. Santana (Radiation Oncology) within one week of discharge. Please call their office if you do not hear from them.) Maria Ines Damon DO [Primary Care Provider] - (PLEASE CALL YOUR PRIMARY CARE PROVIDER TO SCHEDULE A DISCHARGE FOLLOW-UP APPOINTMENT WITHIN 7-10 DAYS.) Tremaine Jesus MD [Physician] - (We have requested a follow-up appointment with Dr. Jesus (Oncology) within one week of discharge. Please call their office if you do not hear from them.) Diet: Carb Consistent or DM2 Addtl Attending Provider Instructions: You were admitted to the hospital for newly diagnosed Light Chain Myeloma. You were treated with a four day course of steriods and radiation. A discharge summary will be sent to your primary care physician to ensure continuity of care. Please bring this discharge summary with you to your next office appointment so that your provider can review it at that time. Follow-up appointments: * Make a follow-up appointment with your PCP within the next week. It is very important that you follow up with them shortly after discharge from the hospital. * We have requested a follow-up appointment with Dr. Jesus (Oncology) within one week of discharge. Please call their office if you do not hear from them. * We have requested a follow-up appointment with Dr. Santana (Radiation Oncology) within one week of discharge. Please call their office if you do not hear from them. * Keep all your follow-up appointments as already scheduled. If you cannot make an appointment, notify your provider. Medications: Your medication list has been reviewed and reconciled upon discharge to ensure accuracy and continuity of care. An updated list of all your medications is included with your hospital discharge paperwork. Please review this list closely, and make note of any changes. * We sent a new medication called amlodipine to your pharmacy. Take amlodipine (5 mg) 1 tab once a day. * If you have any issues filling these prescriptions, please call [phone] and ask to leave a message for Dr. Moreno. * Take your medications as instructed; do not skip a dose of your medicines. Make sure all of your doctors know every medicine you are taking (including tiaz-uvx-vrnpkza medicines, vitamins, and supplements). Call your primary care provider before taking any new medicines (including over- the-counter medicines, vitamins, and supplements), because some of these may interact with your current medications, or may make your symptoms worse. Tell your primary care provider if you cannot afford your medications. CONTACT YOUR PRIMARY CARE PROVIDER if you experience any of the following: * Worsening of symptoms * Fever, chills, or fatigue * Difficulty following your treatment plan, or difficulty taking medications CALL 911 OR GO TO THE EMERGENCY DEPARTMENT if you experience any of the following: * Sudden, severe abdominal pain or nausea/vomiting * Severe chest pain, or chest pain that radiates (moves) to your jaw or arm * Sudden, severe shortness of breath or difficulty breathing Thank you for allowing us to participate in your care. Pending Studies at Discharge: No Stand-Alone Forms: My [facility] [employer], Smoking Cessation Medications and DC Order Prescriptions: New amlodipine 5 mg Tablet 5 mg PO QAM Qty: 30 0RF Continued (DME) pen needle, diabetic [BD Ultra-Fine Augustina Pen Needle] 32 gauge x 5/32" needle See Rx Instructions .ROUTE .MEDSUPPLY Qty: 100 3RF Rx Instructions: Use to inject once daily metoprolol tartrate 50 mg tablet 50 mg PO BID Qty: 180 3RF Tresiba FlexTouch U-100 100 unit/mL (3 mL) insulin pen 33 unit SQ HS MDD 33 UNITS/DAILY Qty: 2 3RF Rx Instructions: Up to 33 units a day semaglutide 2 mg/dose (8 mg/3 mL) pen injector 2 mg subcut Q7D Qty: 3 5RF Rx Instructions: TAKES MONDAY EVENINGS (DME) Accu-Chek Josephine Plus test strp Strip See Rx Instructions .ROUTE .MEDSUPPLY Qty: 100 3RF Rx Instructions: checking TID multivitamin [Multiple Vitamins] Tablet 1 tab PO DAILY aspirin 81 mg tablet,delayed release (DR/EC) 81 mg PO DAILY atorvastatin [Lipitor] 40 mg tablet 40 mg PO HS cholecalciferol (vitamin D3) 25 mcg (1,000 unit) tablet 1,000 units PO DAILY glucosamine HCl 500 mg tablet 500 mg PO DAILY metformin 500 mg tablet See Rx Instructions .ROUTE .COMPLEX Rx Instructions: 500 mg orally; TAKES 500 MG QAM, THEN 1,000 MG QPM. lisinopril 20 mg tablet 20 mg PO DAILY hydrochlorothiazide 12.5 mg capsule 12.5 mg PO DAILY diclofenac sodium 75 mg tablet,delayed release (DR/EC) 75 mg PO BID PRN (Reason: Pain) oxycodone 5 mg tablet 5 mg PO Q6H Qty: 12 0RF lidocaine 5 % adhesive patch,medicated 1 patch topical DAILY Qty: 15 0RF Rx Instructions: "PHARMACY DID NOT GET IN YET" PER PT. leave on most painful area for up to 12 hrs Discharge Orders: Discharge Order (Routine); Ordered 08/13/22 Ordered By: Poncho Garcia/Other Patient Handouts: Managing Type 2 Diabetes Admission Data Admit Date/Time: 08/05/22 23:04 Attending Provider: Faby aTn Admit Provider: Houston Chavarria Primary Care Provider: Maria Ines Damon Other Providers: Karthikeyan Callejas ; Kunal Dorman ; Tremaine Jesus ; Gulshan Guerra ; James Silverman ; Hugo Santana Other Interventions: Discharge Summary Assessment (RN) Last Done: 08/13/22 14:45 Supervising Physician Co-Signing Physician Notes Resident Physician Supervision Note: I independently interviewed and examined the patient and verified the wylie history and physical, reviewed labs and image studies and agree with resident findings and care plan. Resident Activity Tracking Resident Involvement: Resident Care Provided Care Provided: Adult Hospital Medicine
[2022-08-13] MEDS: ASPIRIN 81 MG ECTAB PO SCH (08:47)
[2022-08-13] MEDS: METOPROLOL TARTRATE 50 MG TAB PO SCH (08:47)
[2022-08-13] MEDS: GLUCOSAMINE SULFATE 500 MG CAP PO SCH (08:47)
[2022-08-13] MEDS: HEPARIN SOD 5,000 UNIT/0.5 ML VIAL SQ SCH (08:48)
[2022-08-13] MEDS: amLODIPine BESYLATE 5 MG TAB PO SCH (08:48)
[2022-08-13] MEDS: THIAMINE HCL 100 MG in SYRINGE 9 ML IV SCH (08:49)
[2022-08-13] MEDS: INSULIN ASPART PER UNIT SC SCH ×2 (08:57→12:47)
[2022-08-13] MEDS: LANTUS PER UNIT CHARGE SC SCH (08:57)
[2022-08-18 19:58] LABS: PTH Related Protein 29 pg/mL (11-20); Vitamin D 1,25 10 pg/mL (18-72); Vitamin D3,1,25 10 pg/mL
== END 2022-08-13 15:20 | disposition home health service (06) | DRG 542 ==
LOC: ED 19:34 → EDINP 23:04 → SUATTDRO 23:04 → 2E 08-06 00:53 → 2N 08-11 13:49

== ENCOUNTER 2022-08-18 16:43 | Inpatient (IN) ==
--- NOTE | 2022-08-18 16:57 | Emergency Department Note ---
History of Present Illness General Chief complaint: Back Injury/Pain Stated complaint: back pain Time Seen by Provider: 08/18/22 16:55 History of Present Illness Maximum Pain Intensity: 4 This 67-year-old male patient presents to the emergency department via ambulance for evaluation of back pain. PMHx of T2DM on insulin, L1 vertebral compression fracture, AAZR, vitamin D deficiency, GERD, gout, HTN, with concern for underlying malignancy (MM vs. metastatic disease with unknown primary). He states that he was lifting a generator about 1 month ago and hurt his back as discussed below. He has been taking OxyContin as prescribed by his family doctor for the pain, but it no longer seems to be working. His last pain pill was about 6 hours ago. He rates his pain as sharp and 4/10. He was recently admitted on 08/05/22 and discharged on 08/13/22. CT Lumbar spine from 08/02/22 after lifting the generator with evidence of L1 endplate compression fracture with mild loss of height, as well as acute nondisplaced pathologic fracture of lateral 7th rib. Has scheduled appointment w/ Dr. Duncan 09/02/22. He had a CT scan of the chest/abd/pelvis on 08/05/22 that showed: Multiple scattered lytic/destructive osseous lesions as described above consistent with metastatic disease. These result in pathologic fractures of the right medial clavicle and left seventh rib. No pneumothorax. Stable 5 mm nodule within the left lower lobe. No new pulmonary nodules identified. The abdominal structures will be reported separately. Numerous osteolytic skeletal lesions are re-demonstrated suggestive of metastasis versus multiple myeloma. Acute nondisplaced pathologic fracture involving of the lateral left seventh rib with additional multifocal areas of bony destruction as above. Unchanged appearance of the acute pathologic L1 fracture, stable from 08/02/2022. Right nephrolithiasis. Cholelith iasis. Medical oncology was suspecting plasma cell neoplasm with confirmatory biopsy to be done as an outpatient. Started palliative radiation on 08/12/22. He also had a history of metabolic encephalopathy during his last admission with improvement of his symptoms on 08/07/22. He was supposed to go to radiation today, but couldn't move because of his back pain and didn't go. States that his back pain is not controlled by his pain medication. Denies any chest pain, SOB, abdominal pain, nausea, vomiting, urinary symptoms, or problems with his BMs. Denies any loss of control of his bowel or bladder functions. Still able to move his legs and does not feel any weakness of his legs. Denies any numbness or tingling of his legs. His friend then mentioned that he fell yesterday while trying to get down his porch steps injuring his back further. Unknown if he hit his head or not. His back pain now seems to be from his neck down to his lower back. His friend also mentions that he seems "a little off" today compared to normal, but not as bad as when he had the metabolic encephalopathy. Home Medications Medication Instructions Recorded Confirmed Type aspirin 81 mg tablet,delayed 81 mg PO DAILY 05/22/19 08/19/22 History release atorvastatin 40 mg tablet (Lipitor) 40 mg PO HS 08/09/19 08/19/22 History hydrochlorothiazide 12.5 mg capsule 12.5 mg PO DAILY 09/16/19 08/19/22 History lisinopril 20 mg tablet 20 mg PO DAILY 09/16/19 08/19/22 History metformin 500 mg tablet See Rx Instructions .Route .COMPLEX 09/16/19 08/19/22 History pen needle, diabetic 32 gauge x #100 ea 10/23/19 08/19/22 Rx 32" (BD Ultra-Fine Augustina Pen Needle) cholecalciferol (vitamin D3) 25 1,000 units PO DAILY 01/27/20 08/19/22 History mcg (1,000 unit) tablet multivitamin (Multiple Vitamins 1 tab PO DAILY 01/27/20 08/19/22 History tablet) glucosamine HCl 500 mg tablet 500 mg PO DAILY 08/20/20 08/19/22 History metoprolol tartrate 50 mg tablet 50 mg PO BID #180 tabs 11/16/21 08/19/22 Rx insulin degludec 100 unit/mL (3 33 unit (0.33 mL) subcut HS #2 04/05/22 08/19/22 Rx mL) subcutaneous pen (Tresiba Boxes FlexTouch U-100 insulin) semaglutide 2 mg/dose (8 mg/3 mL) 2 mg (0.75 mL) subcut Q7D #3 mL 05/03/22 08/19/22 Rx subcutaneous pen injector blood sugar diagnostic (Accu-Chek #100 ea 05/23/22 08/19/22 Rx Josephine Plus test strips) oxycodone 5 mg tablet 5 mg PO Q6H severe pain #12 tabs 08/02/22 08/19/22 Rx lidocaine 5 % topical patch 1 patch topical DAILY #15 ea 08/03/22 08/19/22 Rx diclofenac sodium 75 mg 75 mg PO BID PRN Pain 08/05/22 08/19/22 History tablet,delayed release amlodipine 5 mg tablet 5 mg PO QAM #30 tabs 08/13/22 08/19/22 Rx Allergies Allergy/AdvReac Type Severity Reaction Status Date / Time amoxicillin [From Augmentin] Allergy Intermediate SWELLING Verified 08/16/22 15:17 AROUND EYES clavulanic acid Allergy Intermediate SWELLING Verified 08/16/22 15:17 AROUND THE EYES Penicillins Allergy Intermediate AUGMENTIN Verified 08/16/22 15:17 - SWELLING AROUND THE EYES diflunisal AdvReac Intermediate VOMITING Verified 08/16/22 15:17 valsartan [From Diovan] AdvReac Intermediate Vomiting Verified 08/16/22 15:17 Past Med/Surg History Medical History Bronchitis Chest pain Dyslipidemia GE reflux Gout Hypertension Laceration of multiple sites of left hand and fingers Light chain myeloma Obstructive sleep apnea Tendon laceration Type 2 diabetes mellitus Vitamin D deficiency Surgical History History of surgery on arm Family History Father Alzheimer disease Dyslipidemia Mother Diabetes Coronary heart disease Other Family history non-contributory Social History Smoking Status: Never smoker Second Hand Exposure: No; Hx Alcohol Use: No Hx Substance Use: No Preferred Language: Danish Communication Ability: Effective Exceptional Student Education Aide Required: No Beliefs That Will Affect Care: None marital status: Single marital status details: no children Current Living Situation: Parent Current Living Situation Comment: Takes care of mother current occupational status: retired Feels Safe at Home: Yes Assistive Devices: CPAP and Walker Review of Systems See HPI for pertinent positives & negatives. Physical Exam Vital Signs Vital Signs - 24 hr 08/18/22 16:37 08/18/22 16:37 08/18/22 18:35 Pulse Rate 104 H Pulse Rate [Apical] 89 Pulse Rhythm [Apical] Regular Respiratory Rate 16 16 16 Respiratory Effort / Characteristics Non-Labored Non-Labored Non-Labored Respiratory Depth Normal Normal Normal Respiratory Pattern Regular Regular Regular Blood Pressure 115/50 L Blood Pressure [Left Arm] 110/50 L Blood Pressure Mean 71 Blood Pressure Mean [Left Arm] 70 Blood Pressure Position Lying Blood Pressure Position [Left Arm] Lying Pulse Oximetry 98 97 Oxygen Delivery Method Room Air Room Air Sepsis Recent Fever Within 48 Hours No Sepsis New/Unexplained Change in Mental Status No Sepsis Action Taken by Nursing No Action Required VITALS: Vitals are noted on the nurse's note and reviewed by myself. GENERAL: No acute distress, non-diaphoretic. SKIN: The skin was without obvious lacerations or abrasions. Capillary reflex less than 2 seconds. HEAD: Normocephalic. No scalp tenderness or step-offs felt. EARS: External auditory canals clear, tympanic membranes pearly lockwood without erythema or effusion bilaterally. No hemotympanum. No wall sign. No mastoid tenderness. EYES: Pupils equal round and reactive to light and accommodation. Conjunctivae without injection, sclerae without icterus. Extraocular movements intact. NOSE: Patent without discharge. No sinus tenderness. No septal hematoma or bleeding. FACE: No facial bone tenderness. Full range of motion of the jaw without tenderness. MOUTH: Mucous membranes moist. Pharynx without erythema or exudate. Uvula midline. Airway patent. Tongue does not deviate. NECK: Supple without nuchal rigidity. Cervical spine is tender to palpation with bilateral paraspinal muscle tenderness. HEART: Regular rate and rhythm without murmurs gallops or rubs. LUNGS: Clear to auscultation bilaterally without wheezes, rales or rhonchi. No retractions or accessory muscle use. CHEST: No chest wall tenderness. ABDOMEN: Positive bowel sounds x 4. Normal tympanic percussion. Soft, nontender, without masses or organomegaly. No guarding or rebound tenderness. MUSCULOSKELETAL: He is tender to palpation over the mid thoracic spine down through the lumbar spine. He also has paraspinal muscle tenderness along the thoracic and lumbar spine. No tenderness with pelvic rocking. Full range of motion without tenderness to palpation in all extremities. Strength 4/5, but equal throughout. Peripheral pulses 2+. NEURO: Patient was alert and oriented to person place and time. However, he appeared tired with slow speech on exam. Normal sensation to light and sharp touch. No focal neurological deficits. Course Administered Medications Aspirin (Aspirin 81 Mg Ectab) 81 mg PO DAILY TOMA Stop: 09/18/22 08:59 Last Admin: 08/19/22 08:38 Dose: 81 mg Documented By: KERRY Atorvastatin Calcium (Atorvastatin 40 Mg Tab) 40 mg PO HS TOMA Stop: 09/17/22 23:08 Last Admin: 08/18/22 23:58 Dose: 40 mg Documented By: VERA Diclofenac Sodium (Diclofenac Sodium 75 Mg Tabcr) 75 mg PO BID PRN PRN Reason: Pain Stop: 09/17/22 23:08 Last Admin: 08/18/22 23:58 Dose: 75 mg Documented By: VERA Fentanyl (Fentanyl 25 Mcg/Hr Tdsy) 25 mcg TD Q3D TOMA Stop: 09/02/22 12:29 Last Admin: 08/19/22 12:37 Dose: 25 mcg Documented By: KERRY Glucosamine Sulfate (Glucosamine Sulfate 500 Mg Cap) 500 mg PO DAILY [facility] Stop: 09/18/22 08:59 Last Admin: 08/19/22 08:38 Dose: 500 mg Documented By: KERRY Heparin Sodium (Porcine) (Heparin Sod 5,000 Unit/0.5 Ml Vial) 5,000 units SQ Q12 TOMA Stop: 09/17/22 23:29 Last Admin: 08/19/22 09:03 Dose: 5,000 units Documented By: Admin: 08/19/22 00:00 Dose: 5,000 units Documented By: VERA Insulin Aspart (Insulin Aspart Per Unit) 0 units SC ACHS TOMA Stop: 09/17/22 23:29 Last Admin: 08/19/22 12:37 Dose: 7 units Documented By: KERRY Co-signed By: [id number] Admin: 08/19/22 08:42 Dose: 4 units Documented By: KRERY Co-signed By: ELIA Admin: 08/19/22 00:00 Dose: 3 units Documented By: VERA Co-signed By: BJYennifer Insulin Glargine (Lantus Per Unit Charge) 17 units SQ BID TOMA Stop: 09/17/22 23:29 Last Admin: 08/19/22 08:42 Dose: 17 units Documented By: KERRY Co-signed By: ELIA Admin: 08/18/22 23:59 Dose: 17 units Documented By: VERA Co-signed By: CHRISTOPHER Lidocaine (Lidocaine 5% 1 Patch) 1 patch TD DAILY TOMA Stop: 09/18/22 08:59 Last Admin: 08/19/22 08:38 Dose: 1 patch Documented By: KERRY Metoprolol Tartrate (Metoprolol Tartrate 50 Mg Tab) 50 mg PO BID TOMA Stop: 09/17/22 23:08 Last Admin: 08/19/22 07:27 Dose: Not Given Documented By: Admin: 08/18/22 23:58 Dose: 50 mg Documented By: VERA Miscellaneous (Remove Lidoderm Patch) 1 each N/A DAILY@2100 [facility] Stop: 09/17/22 23:08 Last Admin: 08/18/22 23:45 Dose: Not Given Documented By: VERA Miscellaneous (Fentanyl Patch Remove & Waste) 1 each N/A Q3D TOMA Stop: 09/18/22 12:29 Last Admin: 08/19/22 12:47 Dose: Not Given Documented By: KERRY Vitamin D (Cholecalciferol 1,000 Units 25 Mcg Tab) 1,000 units PO DAILY TOMA Stop: 09/18/22 08:59 Last Admin: 08/19/22 08:38 Dose: 1,000 units Documented By: KERRY Discontinued Medications Amlodipine Besylate (Amlodipine Besylate 5 Mg Tab) 5 mg PO QAM TOMA Stop: 09/18/22 08:59 Last Admin: 08/19/22 07:26 Dose: Not Given Documented By: KERRY Dexamethasone (Dexamethasone 4 Mg Tab) 40 mg PO DAILY ONE Stop: 08/19/22 11:01 Last Admin: 08/19/22 11:01 Dose: 40 mg Documented By: KERRY Fentanyl Citrate (Fentanyl Citrate 100 Mcg/2 Ml Vial) 25 mcg IV NOW ONE Stop: 08/18/22 18:58 Last Admin: 08/18/22 19:34 Dose: 25 mcg Documented By: HEYDI Sodium Chloride (Nss) 500 mls @ 999 mls/hr IV .Q31M ONE Stop: 08/18/22 17:56 Last Infusion: 08/18/22 18:55 Dose: 0 mls/hr Documented By: Admin: 08/18/22 18:12 Dose: 999 mls/hr Documented By: Lactated Ringer's (Lr) 1,000 mls @ 125 mls/hr IV .Q8H TOMA Stop: 08/19/22 12:44 Last Infusion: 08/19/22 13:34 Dose: 0 mls/hr Documented By: Admin: 08/19/22 05:24 Dose: 125 mls/hr Documented By: Infusion: 08/19/22 05:24 Dose: 125 mls/hr Documented By: Admin: 08/18/22 21:24 Dose: 125 mls/hr Documented By: HEYDI Sodium Chloride (Nss 1000ml) 500 mls @ 999 mls/hr IV .Q31M ONE Stop: 08/19/22 08:07 Last Infusion: 08/19/22 08:49 Dose: 0 mls/hr Documented By: Admin: 08/19/22 07:47 Dose: 999 mls/hr Documented By: KERRY Lidocaine (Lidocaine 5% 1 Patch) 2 patch TD NOW STA Stop: 08/18/22 19:18 Last Admin: 08/18/22 19:35 Dose: 2 patch Documented By: HEYDI Morphine Sulfate (Morphine Sulfate 4 Mg/Ml 1 Ml Carp\\Vial) 4 mg IV NOW STA Stop: 08/18/22 17:27 Last Admin: 08/18/22 18:22 Dose: Not Given Documented By: Ondansetron HCl (Ondansetron Inj 2 Mg/Ml 2 Ml Vial) 4 mg IV NOW STA Stop: 08/18/22 17:27 Last Admin: 08/18/22 18:13 Dose: 4 mg Documented By: Medical Decision Making Differential Diagnosis Differential diagnosis includes fracture, dislocation, subluxation, contusion, intracranial injury, neurologic, complications from his metastatic disease, encephalopathy, as well as other pathologies. Laboratory Data Attestation: I reviewed the patient's lab results. 08/18/22 17:35 08/18/22 17:35 Lab Results 08/18/22 08/18/22 08/18/22 Range/Units 17:35 17:35 17:35 WBC 5.68 (4.8-10.8) K/ul RBC 3.89 L (4.63-6.08) M/uL Hgb 12.7 L (14.0-18.0) g/dl Hct 35.2 L (40.1-51.0) % MCV 90.5 (80.0-100.0) fL MCH 32.6 (25.0-34.0) pg MCHC 36.1 H (32.0-36.0) g/dL RDW Std Deviation 44.6 (36.4-46.3) fL RDW Coeff of Jose Juan 13.7 (11.5-14.5) % Plt Count 171 (130-400) K/uL MPV 10.5 (9.4-12.4) fL Immature Gran % (Auto) 1.2 % Neut % (Auto) 84.1 % Lymph % (Auto) 7.2 % Barrow % (Auto) 5.5 % Eos % (Auto) 1.8 % Baso % (Auto) 0.2 % Neut # (Auto) 4.78 (1.4-6.5) K/uL Lymph # (Auto) 0.41 L (1.2-3.4) K/uL Barrow # (Auto) 0.31 (0.24-0.82) K/uL Eos # (Auto) 0.10 (0-0.50) K/uL Baso # (Auto) 0.01 (0-0.2) K/uL Immature Gran # (Auto) 0.07 H (0.00-0.02) K/uL Sodium 132 L (136-145) mmol/L Potassium 5.0 (3.5-5.1) mmol/L Chloride 103 (98-107) mmol/L Carbon Dioxide 19 L (21-32) mmol/L Anion Gap 10 (3-11) BUN 67 H (6-23) mg/dl Creatinine 2.44 H (0.6-1.4) mg/dl Est Cr Clr Drug Dosing 30.1 ml/min Est GFR ( Amer) 30.1 ml/min Est GFR (Non-Af Amer) 26.0 ml/min BUN/Creatinine Ratio 27.5 H (10-20) Glucose 361 H* (70-99(Fasting)) mg/dl Calcium 9.2 (8.5-10.1) mg/dl Magnesium 1.7 (1.7-2.4) mg/dl Total Bilirubin 0.6 (0.2-1.0) mg/dl AST 11 L (13-39) U/L ALT 22 (7-52) U/L Alkaline Phosphatase 89 (34-104) U/L Troponin I High Sens 42.5 H (0-20) pg/ml Total Protein 6.1 (6.0-8.3) gm/dl Albumin 3.4 (3.4-5.0) gm/dl Globulin 2.7 (2.5-4.0) gm/dl Albumin/Globulin Ratio 1.3 (0.9-2) SARS-CoV-2, RNA, NAAT NEGATIVE (NEGATIVE) Imaging Data Radiologist's Impression: Cervical Spine CT 08/18/22 17:26 CT cervical spine wo con CLINICAL HISTORY: fall, neck pain TECHNIQUE: Multidetector row helical CT of the cervical spine was performed without administration of intravenous contrast. Coronal and sagittal reformations were obtained. Automated dose lowering techniques and/or adjustment according to patient size were utilized for this exam. Comparison: None available at the time of this dictation. FINDINGS: No acute fractures or subluxations are identified. Degenerative changes are seen in the visualized spine. There is a lytic lesion in the left transverse process of T6 with a few smaller lytic lesions noted.. Soft tissues are unremarkable. IMPRESSION: Degenerative changes and lytic lesions noted without acute fracture. ACT 112: Negative or not required by law. Electronically signed by: Jalil Sargent M.D. 08/18/2022 6:[address] 08/18/22 17:26 CT head/brain wo con CLINICAL HISTORY: fall Technique: Contiguous axial CT images of the head were acquired from the base of the skull to the vertex without intravenous contrast administration. Images were viewed in brain, subdural and bone windows. Automated dose lowering techniques and/or adjustment according to patient size were utilized for this exam. Comparison: Comparison is made to CT head 08/25/2007 Findings: Areas of decreased attenuation are present in the periventricular and subcortical white matter bilaterally consistent with small vessel ischemic disease. Generalized cerebral atrophy with commensurate enlargement of the ventricles, sulci, and cisterns is also present. There is no acute intracranial hemorrhage or evidence of acute territorial infarction. No shift of the midline structures, mass effect, or extra-axial abnormalities are shown. Atherosclerotic calcifications are present in the intracranial segments of the internal carotid arteries. Imaged portions of the paranasal sinuses and mastoid air cells are clear. The orbits appear normal. There are no acute fractures of the calvaria or scalp swelling. Impression: No acute intracranial hemorrhage, no evidence of acute territorial infarction or other acute intracranial disease process. ACT 112: Negative or not required by law. Electronically signed by: Jalil Sargent M.D. 08/18/2022 6:[address] 08/18/22 17:26 CT lumbar spine wo con CLINICAL HISTORY: fall, back pain, h/o metastatic disease TECHNIQUE: Multidetector row helical CT of the lumbar spine was performed without administration of intravenous contrast. Coronal and sagittal reformations were obtained. Automated dose lowering techniques and/or adjustment according to patient size were utilized for this exam. Comparison: Comparison is made to CT lumbar spine 08/02/2022 FINDINGS: Redemonstration of osteopenia and acute to subacute superior endplate compression fracture of L1. No significant retropulsion is again seen at this level. No acute fractures are identified. Partial visualization of previously seen left iliac wing lytic lesion. Mild degenerative changes are seen. Minimal anterolisthesis seen at L4-L5. Surrounding soft tissues are unremarkable. IMPRESSION: 1. Redemonstration of L1 compression deformity without retropulsion. No acute fracture is seen. 2. Redemonstration of osteopenia and lytic lesions, most prominently in L1 and in the left iliac wing. 3. Degenerative changes. ACT 112: Negative or not required by law. Electronically signed by: Jalil Sargent M.D. 08/18/2022 6:[address] 08/18/22 17:26 CT thoracic spine wo con CLINICAL HISTORY: fall, back pain TECHNIQUE: Multidetector row helical CT of the thoracic spine was performed without administration of intravenous contrast. Coronal and sagittal reformations were obtained. Automated dose lowering techniques and/or adjustment according to patient size were utilized for this exam. Comparison: Comparison is made to CT chest 08/05/2022 FINDINGS: There is likely a small pathologic fracture in the T7 vertebral body associated with a lytic lesion. This fracture was likely present in the prior CT chest. Degenerative changes are noted in the visualized spine. Partial visualization of multiple lytic lesions with soft tissue masses, for example with bony destruction of the left eighth rib. Please see CT lumbar spine for findings of L1 fracture. Surrounding soft tissues are unremarkable. IMPRESSION: Multiple lytic lesions with redemonstration of pathologic fractures, most prominently in the T7 vertebral body and left eighth rib head. ACT 112: Negative or not required by law. Electronically signed by: Jalil Sargent M.D. 08/18/2022 6:27 PM MDM Narrative I examined the patient. An IV lock was placed and labs were drawn. Initially morphine 4 mg IV and Zofran 4 mg IV were ordered, but the nurse came to me stating that he was hypotensive, therefore, the morphine was not given per nursing. He was given 500 mL bolus followed by second 500 mL bolus after his blood sugar came back elevated at 361. An order was placed for repeat [id number] glucose after he received the 1 L bolus and it had improved to 196. The patient states that he took his metformin today, but did not take any of his insulin. He was given fentanyl 25 mcg IV while in the emergency department with improvement of his pain and no significant drop in his blood pressure. Lidoderm patches were also placed to help control his pain. CBC without leukocytosis and with a stable anemia of 12.7. Along with the glucose of 361 his creatinine also was more elevated than baseline at 2.44. BUN elevated at 67. Troponin was elevated at 42.5 with his troponin being elevated during his previous admission as well. EKG was interpreted by myself as normal sinus rhythm at 99 bpm with left anterior fascicular block, but no acute ST or T wave changes and no significant change from his previous EKG. The patient had not given a urine sample at the time of this dictation. An ammonia level was also ordered, but not resulted at the time of this dictation. Imaging studies were reviewed by myself and read by radiology as above. CT scan of the head without acute intracranial hemorrhage or other acute intracranial abnormality. CT scan of the cervical spine showed a lytic lesion in the left transverse process of T6 with a few smaller lytic lesions noted, but no acute fracture or subluxation. CT scan of the thoracic spine showed multiple lytic lesions with re-demonstration of pathologic fractures most prominently in the T7 vertebral body and left eighth rib head. CT scan of the lumbar spine showed re- demonstration of L1 compression deformity without retropulsion and no acute fracture or subluxation. Re-demonstration of osteopenia and lytic lesions most prominently in the L1 and in the left iliac wing. The patient was independently evaluated by Dr. Whitfield, who agreed with my assessment and treatment plan. We feel the patient requires admission for further management of his acute on chronic pain that is not well controlled at home as well as his hypotension, elevated troponin, and acute renal failure. The on-call hospitalist agreed to admit the patient for further treatment. Please refer to their dictation for further details. The patient's care was transferred in stable condition. Attending Attestation: Mercedes Whitfield MD independently saw and evaluated this patient and agree with history and physical is otherwise documented by the physician legal document assistant. See their note for full details. Patient unfortunately with recent oncological diagnosis here with back pain after falls and poor pain control. BP is borderline low here. He denies any new numbness in lower extremities on exam resting on his left side in bed. Imaging questions possibly a T7 and 8th rib fracture today but in any event he needs pain control. Labs with incidental YOSI; question decreased po intake. Given IVF. Small amount of pain. Admit to [facility] [place]. Impression & Plan Light chain myeloma, Fatigue, Acute renal failure, Closed compression fracture of L1 vertebra, Elevated troponin level, Osteolytic lesion, Fall, Type 2 diabetes mellitus Discharge Plan Visit Data Chief Complaint: Back Injury/Pain Stated Complaint: back pain ED Provider: Cm Whitfield ED Midlevel Provider: Sheridan Canchola Discharge Problem: Light chain myeloma, Fatigue, Acute renal failure, Closed compression fracture of L1 vertebra, Elevated troponin level, Osteolytic lesion, Fall, Type 2 diabetes mellitus Patient Disposition: Admitted As Inpatient Condition: Good Discharge Instructions Interventions: ED Discharge Assessment Last Done: 08/18/22 23:08 : Fatigue Qualifiers: Encounter type: initial encounter Acute renal failure Qualifiers: Acute renal failure type: unspecified Qualified Code(s): N17.9 - Acute kidney failure, unspecified Closed compression fracture of L1 vertebra Qualifiers: Encounter type: subsequent encounter Fall Qualifiers: Encounter type: initial encounter Qualified Code(s): W19.XXXA - Unspecified fall, initial encounter
[2022-08-18] MEDS ORDERED: MoRPHine SULFATE 4 MG/ML 1 ML CARP\\VIAL IV STA (17:26)
[2022-08-18] MEDS ORDERED: ONDANSETRON INJ 2 MG/ML 2 ML VIAL IV STA (17:26)
[2022-08-18] MEDS ORDERED: SODIUM CHLORIDE 0.9% 500 ML IV ONE (17:26)
[2022-08-18 17:50] LABS: Basophils # (auto) 0.01 K/uL (0-0.2); Basophils % (auto) 0.2 %; Eosinophils % (auto) 1.8 %; Hematocrit (blood only) 35.2 % (40.1-51.0); Hemoglobin 12.7 g/dl (14.0-18.0); Immature Granulocytes # (auto) 0.07 K/uL (0.00-0.02); Immature Granulocytes % (auto) 1.2 %; Lymphocytes # (auto) 0.41 K/uL (1.2-3.4); Lymphocytes % (auto) 7.2 %; Mean Corpuscular Hemoglobin 32.6 pg (25.0-34.0); Mean Corpuscular Hgb Conc 36.1 g/dL (32.0-36.0); Mean Corpuscular Volume 90.5 fL (80.0-100.0); Mean Platelet Volume 10.5 fL (9.4-12.4); Monocytes # (auto) 0.31 K/uL (0.24-0.82); Monocytes % (auto) 5.5 %; Neutrophils # (auto) 4.78 K/uL (1.4-6.5); Neutrophils % (auto) 84.1 %; Platelet Count 171 K/uL (130-400); RDW Coefficient of Variation 13.7 % (11.5-14.5); RDW Standard Deviation 44.6 fL (36.4-46.3); Red Blood Count 3.89 M/uL (4.63-6.08); White Blood Count 5.68 K/ul (4.8-10.8)
--- NOTE | 2022-08-18 18:14 | CT Scan Report ---
CT head/brain wo con CLINICAL HISTORY: fall Technique: Contiguous axial CT images of the head were acquired from the base of the skull to the ivan rob without intravenous contrast administration. Images were viewed in brain, subdural and [facility]. Automated dose lowering techniques and/or adjustment according to patient size were utilized for this exam. Comparison: Comparison is made to CT head 08/25/2007 Findings: Areas of decreased attenuation are present in the periventricular and subcortical white matter bilate rally consistent with small vessel ischemic disease. Generalized cerebral atrophy with commensurate e nlargement of the ventricles, sulci, and cisterns is also present. There is no acute intracranial hem orrhage or evidence of acute territorial infarction. No shift of the midline structures, mass effect, or extra-axial abnormalities are shown. Atherosclerotic calcifications are present in the intracran ial segments of the internal carotid arteries. Imaged portions of the paranasal sinuses and mastoid air cells are clear. The orbits appear normal. There are no acute fractures of the calvaria or scalp swelling. Impression: No acute intracranial hemorrhage, no evidence of acute territorial infarction or other acute intracra nial disease process. ACT 112: Negative or not required by law. Electronically signed by: Jalil Sargent M.D. 08/18/2022 6:12 PM
[2022-08-18 18:18] LABS: Troponin I High Sensitivity 42.5 pg/ml (0-20)
--- NOTE | 2022-08-18 18:23 | CT Scan Report ---
CT cervical spine wo con CLINICAL HISTORY: fall, neck pain TECHNIQUE: Multidetector row helical CT of the cervical spine was performed without administration of intravenous contrast. Coronal and sagittal reformations were obtained. Automated dose lowering techn iques and/or adjustment according to patient size were utilized for this exam. Comparison: None available at the time of this dictation. FINDINGS: No acute fractures or subluxations are identified. Degenerative changes are seen in the visualized sp ine. There is a lytic lesion in the left transverse process of T6 with a few smaller lytic lesions no han.. Soft tissues are unremarkable. IMPRESSION: Degenerative changes and lytic lesions noted without acute fracture. ACT 112: Negative or not required by law. Electronically signed by: Jalil Sargent M.D. 08/18/2022 6:20 PM
--- NOTE | 2022-08-18 18:29 | CT Scan Report ---
CT thoracic spine wo con CLINICAL HISTORY: fall, back pain TECHNIQUE: Multidetector row helical CT of the thoracic spine was performed without administration of intravenous contrast. Coronal and sagittal reformations were obtained. Automated dose lowering techn iques and/or adjustment according to patient size were utilized for this exam. Comparison: Comparison is made to CT chest 08/05/2022 FINDINGS: There is likely a small pathologic fracture in the T7 vertebral body associated with a lytic lesion. This fracture was likely present in the prior CT chest. Degenerative changes are noted in the visuali zed spine. Partial visualization of multiple lytic lesions with soft tissue masses, for example with bony destruction of the left eighth rib. Please see CT lumbar spine for findings of L1 fracture. Surr ounding soft tissues are unremarkable. IMPRESSION: Multiple lytic lesions with redemonstration of pathologic fractures, most prominently in the T7 verte bral body and left eighth rib head. ACT 112: Negative or not required by law. Electronically signed by: Jalil Sargent M.D. 08/18/2022 6:27 PM
[2022-08-18 18:47] LABS: Albumin Globulin Ratio 1.3 (0.9-2); Albumin Level 3.4 gm/dl (3.4-5.0); BUN Creatinine Ratio 27.5 (10-20); Bilirubin,Total 0.6 mg/dl (0.2-1.0); Calcium 9.2 mg/dl (8.5-10.1); Creatinine Clr Calc Pharmacy 30.1 ml/min; Est GFR (African American) 30.1 ml/min; Globulin 2.7 gm/dl (2.5-4.0); Magnesium 1.7 mg/dl (1.7-2.4); Total Protein 6.1 gm/dl (6.0-8.3)
--- NOTE | 2022-08-18 18:52 | CT Scan Report ---
CT lumbar spine wo con CLINICAL HISTORY: fall, back pain, h/o metastatic disease TECHNIQUE: Multidetector row helical CT of the lumbar spine was performed without administration of i ntravenous contrast. Coronal and sagittal reformations were obtained. Automated dose lowering techniq ues and/or adjustment according to patient size were utilized for this exam. Comparison: Comparison is made to CT lumbar spine 08/02/2022 FINDINGS: Redemonstration of osteopenia and acute to subacute superior endplate compression fracture of L1. No significant retropulsion is again seen at this level. No acute fractures are identified. Partial visualization of previously seen left iliac wing lytic les ion. Mild degenerative changes are seen. Minimal anterolisthesis seen at L4-L5. Surrounding soft tiss ues are unremarkable. IMPRESSION: 1. Redemonstration of L1 compression deformity without retropulsion. No acute fracture is seen. 2. Redemonstration of osteopenia and lytic lesions, most prominently in L1 and in the left iliac win g. 3. Degenerative changes. ACT 112: Negative or not required by law. Electronically signed by: Jalil Sargent M.D. 08/18/2022 6:49 PM
[2022-08-18] MEDS ORDERED: fentaNYL citrate 100 MCG/2 ML VIAL IV ONE (18:57)
[2022-08-18] MEDS ORDERED: LIDOCAINE 5% 1 PATCH TD STA (19:17)
--- NOTE | 2022-08-18 20:28 | History & Physical Report ---
Date of Service August 18, 2022 Assessment & Plan (1) Light chain myeloma: Plan: - Patient was admitted 08/01-07/2013 with back pain and unfortunately found to have lytic lesions on CT imaging. - IgA, IgA, IgM not elevated, SPEP/UPEP pending. - He was seen by both oncology and radiation oncology, started radiation during admission and has seen them several times since discharge, with COPD but could not due to pain. - He did have a fall today but was able to get off the ground for 1 minute, repeat CT of cervical the lumbar spine, as well as head CT were obtained which did not show any new acute fractures or new bony lesions. - Patient's been taking OxyContin as prescribed by outpatient PCP but it has stopped working, rating his pain 10/10. - In the ED has received 25 mcg IV fentanyl, 4 g IV morphine, and a lidocaine patch and is feeling much better. Patient will be admitted for continued pain control. (2) Acute renal failure: Plan: - Cr 2.44, was discharged on 08/13 with creatinine of 1.4. Electrolytes within normal limits, calcium normal today at 9.2. - Continue IV fluids and repeat in the a.m. (3) Elevated troponin level: Plan: - Troponin is elevated at 42.5, EKG without any concerning ST segment or T wave changes.Patient has not been having chest pain. - We will obtain repeat troponin in a.m., however similar to last presentation, suspect this is due to reduced clearance due to YOSI. (4) Type 2 diabetes mellitus: Plan: - Home regimen includes Tresiba 33 units daily, semaglutide weekly, metformin. - Will place on Lantus 17 units twice daily with sliding scale insulin, BSG ACHS. - A1c 6.4% on last admission. (5) Hypertension: Plan: - Continue amlodipine and metoprolol. We will hold lisinopril and HCTZ for YOSI, as well as low-normal BP on presentation. (6) Dyslipidemia: Plan: - Continue atorvastatin. Plan - Admit to medicine with telemetry for YOSI, elevated troponin. - SCDs, heparin twice daily for VTE PPx. - Full code. History of Present Illness Chief Complaint: worsening back pain x 1 day Primary Care Provider: Maria Ines Damon DO Haroon Adams is a 67-year-old male history of DM2, AZAR, vitamin D deficiency, GERD, gout, hypertension, and recently diagnosed suspected myeloma who is presenting today with worsening back pain. Patient initially presented on 08/05 for worsening back pain after a fall and was noted to have hypercalcemia, renal failure and had CT scans that showed multiple scattered lytic/destructive osseous lesions above consistent with metastatic disease. He was seen by both oncology and radiation oncology and received radiation therapy while admitted. He was discharged 5 days ago on 08/13 and is representing today with back pain. Since discharge he has had more rounds of radiation therapy and has been taking OxyContin as prescribed by his PCP, however it is no longer working. The pain is sharp throughout his back rated 10/10 on admission, now 2/10. He did have 1 fall this afternoon but was able to get himself up off the ground within a minute. Did not hit his head or lose consciousness. On presentation, patient is mildly tachycardic, otherwise vital signs within normal limits and stable. Labs notable for chronic anemia of 12.7, MCV 90.5. Sodium 132, likely falsely low due to glucose of 361. BUN 67, creatinine 2.44, off from baseline 1.11.4 prior to last admission. His calcium was normal at 9.8 today. Troponin 42.5. Cervical through lumbar spine CT scans redemonstrate lytic lesions with pathologic fractures at T7 and eighth rib, redemonstration of L1 compression deformity without retropulsion, lytic lesions at L1 and left iliac wing. Head CT unremarkable. Allergies Allergy/AdvReac Type Severity Reaction Status Date / Time amoxicillin [From Augmentin] Allergy Intermediate SWELLING Verified 08/16/22 15:17 AROUND EYES clavulanic acid Allergy Intermediate SWELLING Verified 08/16/22 15:17 AROUND THE EYES Penicillins Allergy Intermediate AUGMENTIN Verified 08/16/22 15:17 - SWELLING AROUND THE EYES diflunisal AdvReac Intermediate VOMITING Verified 08/16/22 15:17 valsartan [From Diovan] AdvReac Intermediate Vomiting Verified 08/16/22 15:17 Home Medications Medication Instructions Recorded Confirmed Type aspirin 81 mg tablet,delayed 81 mg PO DAILY 05/22/19 08/19/22 History release atorvastatin 40 mg tablet (Lipitor) 40 mg PO HS 08/09/19 08/19/22 History hydrochlorothiazide 12.5 mg capsule 12.5 mg PO DAILY 09/16/19 08/19/22 History lisinopril 20 mg tablet 20 mg PO DAILY 09/16/19 08/19/22 History metformin 500 mg tablet See Rx Instructions .Route .COMPLEX 09/16/19 08/19/22 History pen needle, diabetic 32 gauge x #100 ea 10/23/19 08/19/22 Rx 5/32" (BD Ultra-Fine Augustina Pen Needle) cholecalciferol (vitamin D3) 25 1,000 units PO DAILY 01/27/20 08/19/22 History mcg (1,000 unit) tablet multivitamin (Multiple Vitamins 1 tab PO DAILY 01/27/20 08/19/22 History tablet) glucosamine HCl 500 mg tablet 500 mg PO DAILY 08/20/20 08/19/22 History metoprolol tartrate 50 mg tablet 50 mg PO BID #180 tabs 11/16/21 08/19/22 Rx insulin degludec 100 unit/mL (3 33 unit (0.33 mL) subcut HS #2 04/05/22 08/19/22 Rx mL) subcutaneous pen (Tresiba Boxes FlexTouch U-100 insulin) semaglutide 2 mg/dose (8 mg/3 mL) 2 mg (0.75 mL) subcut Q7D #3 mL 05/03/22 08/19/22 Rx subcutaneous pen injector blood sugar diagnostic (Accu-Chek #100 ea 05/23/22 08/19/22 Rx Josephine Plus test strips) oxycodone 5 mg tablet 5 mg PO Q6H severe pain #12 tabs 08/02/22 08/19/22 Rx lidocaine 5 % topical patch 1 patch topical DAILY #15 ea 08/03/22 08/19/22 Rx diclofenac sodium 75 mg 75 mg PO BID PRN Pain 08/05/22 08/19/22 History tablet,delayed release amlodipine 5 mg tablet 5 mg PO QAM #30 tabs 08/13/22 08/19/22 Rx Past Med/Surg History Medical History (Updated 08/19/22 @ 15:34 by Charo Patel DNP) Advanced care planning/counseling discussion Bronchitis Cancer related pain Chest pain Dyslipidemia Edema GE reflux Gout Hypertension Laceration of multiple sites of left hand and fingers Light chain myeloma Obstructive sleep apnea Palliative care encounter Tendon laceration Type 2 diabetes mellitus Vitamin D deficiency Weakness generalized Surgical History History of surgery on arm Family History Father Alzheimer disease Dyslipidemia Mother Diabetes Coronary heart disease Other Family history non-contributory Social History Smoking Status: Never smoker Second Hand Exposure: No; Hx Alcohol Use: No Hx Substance Use: No Preferred Language: Slovenian Communication Ability: Effective Customer Leader Required: No Beliefs That Will Affect Care: None marital status: Single marital status details: no children Current Living Situation: Parent Current Living Situation Comment: Takes care of mother current occupational status: retired Feels Safe at Home: Yes Assistive Devices: CPAP and Walker Review of Systems Review of Systems: Constitutional: Ongoing fatigue since starting radiation on admission; No fever/chills, weakness, myalgias, anorexia, night sweats Eyes: No diplopia, no worsening or blurred vision ENT: normal hearing, no trouble swallowing Respiratory: No cough, sputum, dyspnea at rest or on exertion Cardiovascular: No chest pain, tightness or palpitations Abdomen: No pain, nausea, vomiting, diarrhea or constipation : Denies dysuria, hematuria, increased urgency/frequency, urinary retention Musculoskeletal: Severe back pain from neck down to low back, with worst pain being in his lumbar spine; no joint pain, calf pain, swelling Neurologic: No weakness, numbness/tingling, or balance problems Psychiatric: No anxiety or depression Skin: No rash or itch Physical Exam Physical Exam: General: awake, alert, no apparent distress Head: Normocephalic, atraumatic ENT: PERRL, EOMI, no pharyngeal exudate, mucous membranes moist Chest: Clear to auscultation, on room air, no adventitious breath sounds Cardiac: Regular rate and rhythm, no murmur, no JVD, normal peripheral pulses, good capillary refill Abdominal: NABS x 4 quadrants, soft, nontender to palpation, no rebound, guarding or tenderness Extremities: TTP along spine, worst in lumbar region without any step-offs; otherwise normal inspection, no peripheral edema or erythema, calfs nontender to palpation Psych: Normal mood and affect Neuro: AAO x 3, strength intact bilaterally and rated 5/5, no motor deficits, speech is clear, no peripheral sensory deficits Skin: no rash or erythema Results & Data Results & Data ([facility]) Vital Signs (Past 12 Hours) Vital Signs Pulse Pulse Resp BP BP Pulse Ox O2 Del Method 08/18/22 18:35 89 16 110/50 L 97 Room Air 08/18/22 16:37 16 08/18/22 16:37 104 H 16 115/50 L 98 Room Air Laboratory Results Abnormal lab results 08/18/22 08/18/22 Range/Units 17:35 17:35 RBC 3.89 L (4.63-6.08) M/uL Hgb 12.7 L (14.0-18.0) g/dl Hct 35.2 L (40.1-51.0) % MCHC 36.1 H (32.0-36.0) g/dL Lymph # (Auto) 0.41 L (1.2-3.4) K/uL Immature Gran # (Auto) 0.07 H (0.00-0.02) K/uL Sodium 132 L (136-145) mmol/L Carbon Dioxide 19 L (21-32) mmol/L BUN 67 H (6-23) mg/dl Creatinine 2.44 H (0.6-1.4) mg/dl BUN/Creatinine Ratio 27.5 H (10-20) Glucose 361 H* (70-99(Fasting)) mg/dl AST 11 L (13-39) U/L Troponin I High Sens 42.5 H (0-20) pg/ml Diagnostic Findings Cervical Spine CT 08/18/22 17:26 CT cervical spine wo con CLINICAL HISTORY: fall, neck pain TECHNIQUE: Multidetector row helical CT of the cervical spine was performed without administration of intravenous contrast. Coronal and sagittal reformations were obtained. Automated dose lowering techniques and/or adjustment according to patient size were utilized for this exam. Comparison: None available at the time of this dictation. FINDINGS: No acute fractures or subluxations are identified. Degenerative changes are seen in the visualized spine. There is a lytic lesion in the left transverse process of T6 with a few smaller lytic lesions noted.. Soft tissues are unremarkable. IMPRESSION: Degenerative changes and lytic lesions noted without acute fracture. ACT 112: Negative or not required by law. Electronically signed by: Jalil Sargent M.D. 08/18/2022 6:[address] 08/18/22 17:26 CT head/brain wo con CLINICAL HISTORY: fall Technique: Contiguous axial CT images of the head were acquired from the base of the skull to the vertex without intravenous contrast administration. Images were viewed in brain, subdural and bone windows. Automated dose lowering techniques and/or adjustment according to patient size were utilized for this exam. Comparison: Comparison is made to CT head 08/25/2007 Findings: Areas of decreased attenuation are present in the periventricular and subcortical white matter bilaterally consistent with small vessel ischemic disease. Generalized cerebral atrophy with commensurate enlargement of the ventricles, sulci, and cisterns is also present. There is no acute intracranial hemorrhage or evidence of acute territorial infarction. No shift of the midline structures, mass effect, or extra-axial abnormalities are shown. Atherosclerotic calcifications are present in the intracranial segments of the internal carotid arteries. Imaged portions of the paranasal sinuses and mastoid air cells are clear. The orbits appear normal. There are no acute fractures of the calvaria or scalp swelling. Impression: No acute intracranial hemorrhage, no evidence of acute territorial infarction or other acute intracranial disease process. ACT 112: Negative or not required by law. Electronically signed by: Jalil Sargent M.D. 08/18/2022 6:[address] 08/18/22 17:26 CT lumbar spine wo con CLINICAL HISTORY: fall, back pain, h/o metastatic disease TECHNIQUE: Multidetector row helical CT of the lumbar spine was performed without administration of intravenous contrast. Coronal and sagittal reformations were obtained. Automated dose lowering techniques and/or adjustment according to patient size were utilized for this exam. Comparison: Comparison is made to CT lumbar spine 08/02/2022 FINDINGS: Redemonstration of osteopenia and acute to subacute superior endplate compression fracture of L1. No significant retropulsion is again seen at this level. No acute fractures are identified. Partial visualization of previously seen left iliac wing lytic lesion. Mild degenerative changes are seen. Minimal anterolisthesis seen at L4-L5. Surrounding soft tissues are unremarkable. IMPRESSION: 1. Redemonstration of L1 compression deformity without retropulsion. No acute fracture is seen. 2. Redemonstration of osteopenia and lytic lesions, most prominently in L1 and in the left iliac wing. 3. Degenerative changes. ACT 112: Negative or not required by law. Electronically signed by: Jalil Sargent M.D. 08/18/2022 6:[address] 08/18/22 17:26 CT thoracic spine wo con CLINICAL HISTORY: fall, back pain TECHNIQUE: Multidetector row helical CT of the thoracic spine was performed without administration of intravenous contrast. Coronal and sagittal reformations were obtained. Automated dose lowering techniques and/or adjustment according to patient size were utilized for this exam. Comparison: Comparison is made to CT chest 08/05/2022 FINDINGS: There is likely a small pathologic fracture in the T7 vertebral body associated with a lytic lesion. This fracture was likely present in the prior CT chest. Degenerative changes are noted in the visualized spine. Partial visualization of multiple lytic lesions with soft tissue masses, for example with bony destructio n of the left eighth rib. Please see CT lumbar spine for findings of L1 fracture. Surrounding soft tissues are unremarkable. IMPRESSION: Multiple lytic lesions with redemonstration of pathologic fractures, most prominently in the T7 vertebral body and left eighth rib head. ACT 112: Negative or not required by law. Electronically signed by: Jalil Sargent M.D. 08/18/2022 6:27 PM ECG Additional Comments: Normal sinus rhythm Left anterior fascicular block Cannot rule out Anterior infarct , age undetermined Abnormal ECG When compared with ECG of 05-AUG-2022 20:13, No significant change was found. Code Status & VTE Plan Code Status Full Code. Supervising Physician Co-Signing Physician Notes Attending addendum: I have physically seen this patient, have supervised the ABRAHAM's activities, and agree with the H&P unless as otherwise noted. Assessment and Plan: Elevated troponin/hypertension- Troponin 42.5 on admission Telemetry admission Likely secondary to acute kidney injury, type II supply demand mismatch Continue amlodipine and metoprolol with hold parameters Holding lisinopril and HCTZ due to YOSI YOSI on CKD- Creatinine 2.44 with baseline 1.41, and increased to max of 3.41 IV fluids as noted Holding lisinopril and HCTZ as noted Repeat laboratories in a.m. Light chain myeloma/multiple lytic lesions- Pain control as noted Diabetes mellitus- Adjusting from Tresiba to Lantus as noted Placed on Accu-Cheks before meals and at bedtime with NovoLog SSI Dyslipidemia- Continue atorvastatin Remaining orders and notations as noted PG Care Time/CCT Total # of Minutes Spent Total Time Spent with Patient: Total time spent is greater than 50% in coordination of care (as documented) at patient's floor/unit and/or counseling patient: Coding Level of Care Code 04434 INT INP/OBS CARE 2MIN Diagnoses Light chain myeloma C90.00 Acute renal failure N17.9 Elevated troponin level R77.8 Type 2 diabetes mellitus E11.9 Hypertension I10 Dyslipidemia E78.5
[2022-08-18] MEDS: LACTATED RINGER'S 1,000 ML IV SCH (21:24)
[2022-08-18] MEDS ORDERED: oxyCODONE HCL IR 5 MG TAB (IMMEDIATE RELEASE) PO PRN (23:09)
[2022-08-18] MEDS ORDERED: ONDANSETRON INJ 2 MG/ML 2 ML VIAL IV PRN (23:09)
[2022-08-18] MEDS ORDERED: GLUCAGON FOR INJ 1 MG VIAL SQ PRN (23:09)
[2022-08-18] MEDS ORDERED: ACETAMINOPHEN 325 MG TAB PO PRN (23:09)
[2022-08-18] MEDS ORDERED: GLUCOSE 10 TAB/TUBE PO PRN (23:09)
[2022-08-18] MEDS ORDERED: DEXTROSE 50% 50 ML SYRINGE IV PRN (23:09)
[2022-08-18] MEDS ORDERED: MoRPHine SULFATE 2 MG/ML CARP IV PRN (23:09)
[2022-08-18] MEDS ORDERED: GLUCOSE 40% GEL 15 GM TUBE PO PRN (23:09)
[2022-08-18] MEDS ORDERED: POLYETHYLENE (MIRALAX) 17 GM PACK PO PRN (23:09)
[2022-08-18] MEDS ORDERED: MoRPHine SULFATE 4 MG/ML 1 ML CARP\\VIAL IV PRN (23:09)
[2022-08-18] MEDS: METOPROLOL TARTRATE 50 MG TAB PO SCH (23:58)
[2022-08-18] MEDS: ATORVASTATIN 40 MG TAB PO SCH (23:58)
[2022-08-18] MEDS: DICLOFENAC SODIUM 75 MG TABCR PO PRN (23:58)
[2022-08-18] MEDS: LANTUS PER UNIT CHARGE SQ SCH (23:59)
[2022-08-19] MEDS: LACTATED RINGER'S 1,000 ML IV SCH (05:24)
[2022-08-19 06:07] LABS: Basophils # (auto) 0.01 K/uL (0-0.2); Basophils % (auto) 0.3 %; Eosinophils # (auto) 0.15 K/uL (0-0.50); Eosinophils % (auto) 4.5 %; Hematocrit (blood only) 30.8 % (40.1-51.0); Hemoglobin 10.9 g/dl (14.0-18.0); Immature Granulocytes # (auto) 0.04 K/uL (0.00-0.02); Immature Granulocytes % (auto) 1.2 %; Lymphocytes # (auto) 0.48 K/uL (1.2-3.4); Lymphocytes % (auto) 14.5 %; Mean Corpuscular Hemoglobin 32.8 pg (25.0-34.0); Mean Corpuscular Hgb Conc 35.4 g/dL (32.0-36.0); Mean Corpuscular Volume 92.8 fL (80.0-100.0); Mean Platelet Volume 10.5 fL (9.4-12.4); Monocytes % (auto) 9.1 %; Neutrophils # (auto) 2.32 K/uL (1.4-6.5); Neutrophils % (auto) 70.4 %; Platelet Count 127 K/uL (130-400); RDW Coefficient of Variation 13.8 % (11.5-14.5); RDW Standard Deviation 46.5 fL (36.4-46.3); Red Blood Count 3.32 M/uL (4.63-6.08)
[2022-08-19 06:18] LABS: Calcium 8.2 mg/dl (8.5-10.1); Magnesium 1.6 mg/dl (1.7-2.4); Potassium 4.6 mmol/L (3.5-5.1)
[2022-08-19 06:24] LABS: BUN Creatinine Ratio 28.2 (10-20); Creatinine Clr Calc Pharmacy 35.5 ml/min; Est GFR (Non-African American) 31.9 ml/min; Phosphorus 4.5 mg/dl (2.5-4.9)
[2022-08-19 06:30] LABS: Troponin I High Sensitivity 41.6 pg/ml (0-20)
[2022-08-19] MEDS: METOPROLOL TARTRATE 50 MG TAB PO SCH ×2 (07:27→20:40)
[2022-08-19] MEDS ORDERED: SODIUM CHLORIDE 0.9% 1000ML 500 ML IV ONE (07:37)
--- NOTE | 2022-08-19 08:35 | Consultation ---
Date of Consultation August 19, 2022 Assessment & Plan (1) Light chain myeloma: While definitive diagnostic biopsy is required not only to absolutely confirm the diagnosis but also to enable molecular characterization for purposes of prognostication and ultimate treatment planning, nevertheless he almost cer tainly has a light chain myeloma given the clinical presentation with elevated kappa light chain/renal insufficiency/hypercalcemia. CBC is generally stable with some mild anemia evolving overnight primarily reflecting combination of dilutional effects of hydration and as well with a chronic element of renal insufficiency anemia without having to be immediately concerned from a hemoglobin standpoint about his myeloma. Calcium also remains in good range following his pamidronate earlier in the month. Renal function is a concern and may reflect a combination of dehydration, residual impact of the previous hypercalcemia, but also could reflect light chain disease from his myeloma. Uric acid is pending to make sure that we will have an additional element renal toxicity from excessive elevation of that. I have reached out to orthopedics to see whether they are locally able to consider vertebroplasty and/or bone biopsy to help to stabilize his pain and make a diagnosis. I cannot be physically available for a bone marrow biopsy until midweek next week and I am not able to do that under conscious sedation. If he has significant improvement in pain and renal function and can be stable as an outpatient on medications, we could potentially discharge him with follow- up in my office this next week to obtain that biopsy electively. Acute treatment will be hydration, optimization of pain management, and I will suggest another course of dexamethasone at 40 mg daily for 4 days. The latter should help stabilize his pain and give us some additional cytoreduction of the presumed myeloma. Ongoing prophylactic anticoagulation will be important in the context of giving that dexamethasone and will also need to watch his blood glucose levels quite closely with contingent medications to control excessive elevation If we are not easily able to stabilize here, transfer to a quaternary institution may need to be considered for purposes of access to the interventional radiology with conscious sedation capabilities for definitive bone marrow biopsy and possible vertebroplasty. If renal function continues to be problematic, quaternary center could also provide capability of apheresis though the role for that for specifically stabilizing light chain kidney disease is not completely established. Anticipate possible CyBorD chemotherapy which can work well in patients with leandra al insufficiency and light chain myeloma as initial cytoreduction. Could potentially add daratumumab to that in later cycles if he either does not respond well to initial treatment or shows worse prognosis disease on molecular characterization. He may be an eventual candidate for stem cell transplantation consolidation. I am making contingent arrangements to start his first cycle of CyBorD as early as next week even as an inpatient if necessary Bisphosphonate or other bone directed therapy will continue on an every 4-week basis next due at the end of the month unless recurrent hypercalcemia requires more acute intervention (2) Pain: Pain is particularly focused in the lumbar area near the side of his known L1 compression fracture. Orthopedics had reviewed on previous admission and did not feel that surgical stabilization was required. I have asked them whether there is a role for vertebroplasty If pain can be sufficiently stabilized could resume radiation A brief course of high-dose steroids may be helpful as discussed in the light chain myeloma review. If orthopedics is not able to offer vertebroplasty, could also seek interventional pain management regional injection for short term stabilization of pain to enable moving onto radiation. Good luck with palliaitve care pharmacologic regimen Plan 1. Highest immediate priorities are twofold: a. Optimization of pain management with optimization of pharmacologic therapy as well as silvano opportunity for vertebroplasty or interventional pain management injection therapy b. Christianity of adequate renal function with hydration and, if it remains problematic, consideration of transfer for apheresis 2. Definitive management of those issues will come from treatment of the presumed myeloma per se (once histologically confirmed) with a combination of radiation therapy to stabilize the spine and systemic treatment probably initially with CyBorD. Systemic therapy may be complemented in time with the addition of daratumumab and/or sequencing to stem cell transplantation depending on his initial response and molecular prognostication. Bone directed therapy with bisphosphonates or denosumab will help complement myeloma specific treatment. 3. I would recommend that we proceed now with another cycle of dexamethasone 40 (forty) mg daily for 4 days with continued DVT prophylaxis and close monitoring of blood glucose 4. Confirmation of tissue diagnosis could be obtained from orthopedics coordinated biopsy of one of his spinal lesions or bone marrow biopsy. If we do not have the ability to proceed with the former here and cannot sufficiently control pain and renal function to allow for elective outpatient marrow biopsy, may need to use consider transfer to a quaternary institution just for purposes of facilitated diagnosis History of Present Illness Reason for Consultation: Patient with widespread lytic skeletal lesions, elevated kappa light chains and probable multiple myeloma who was admitted earlier this month with hypercalcemia and acute renal insufficiency. Readmitted with uncontrolled pain Attending Physician: Otto Bennett MD History of Present Illness Please see my original consultation August 06, 2022. Widespread skeletal lytic lesions but imaging showing no visceral sites of potential primary or other metastatic disease combined with a markedly elevated kappa light chain level and additional hypercalcemia/renal insufficiency establishes a strong clinical suspicion for myeloma. Initial plan had been for steroid/radiation stabilization followed by definitive biopsy and treatment. Unfortunately patient was not able to achieve sufficient pain relief to lie on the radiation treatment table and has not been able to proceed with that. Re- admitted with uncontrolled pain and some relapse of renal insufficiency though without any recurrent hypercalcemia Allergies Allergy/AdvReac Type Severity Reaction Status Date / Time amoxicillin [From Augmentin] Allergy Intermediate SWELLING Verified 08/16/22 15:17 AROUND EYES clavulanic acid Allergy Intermediate SWELLING Verified 08/16/22 15:17 AROUND THE EYES Penicillins Allergy Intermediate AUGMENTIN Verified 08/16/22 15:17 - SWELLING AROUND THE EYES diflunisal AdvReac Intermediate VOMITING Verified 08/16/22 15:17 valsartan [From Diovan] AdvReac Intermediate Vomiting Verified 08/16/22 15:17 Home Medications Medication Instructions Recorded Confirmed Type aspirin 81 mg tablet,delayed 81 mg PO DAILY 05/22/19 08/19/22 History release atorvastatin 40 mg tablet (Lipitor) 40 mg PO HS 08/09/19 08/19/22 History hydrochlorothiazide 12.5 mg capsule 12.5 mg PO DAILY 09/16/19 08/19/22 History lisinopril 20 mg tablet 20 mg PO DAILY 09/16/19 08/19/22 History metformin 500 mg tablet See Rx Instructions .Route .COMPLEX 09/16/19 08/19/22 History pen needle, diabetic 32 gauge x #100 ea 10/23/19 08/19/22 Rx 5/32" (BD Ultra-Fine Augustina Pen Needle) cholecalciferol (vitamin D3) 25 1,000 units PO DAILY 01/27/20 08/19/22 History mcg (1,000 unit) tablet multivitamin (Multiple Vitamins 1 tab PO DAILY 01/27/20 08/19/22 History tablet) glucosamine HCl 500 mg tablet 500 mg PO DAILY 08/20/20 08/19/22 History metoprolol tartrate 50 mg tablet 50 mg PO BID #180 tabs 11/16/21 08/19/22 Rx insulin degludec 100 unit/mL (3 33 unit (0.33 mL) subcut HS #2 04/05/22 08/19/22 Rx mL) subcutaneous pen (Tresiba Boxes FlexTouch U-100 insulin) semaglutide 2 mg/dose (8 mg/3 mL) 2 mg (0.75 mL) subcut Q7D #3 mL 05/03/22 08/19/22 Rx subcutaneous pen injector blood sugar diagnostic (Accu-Chek #100 ea 05/23/22 08/19/22 Rx Josephine Plus test strips) oxycodone 5 mg tablet 5 mg PO Q6H severe pain #12 tabs 08/02/22 08/19/22 Rx lidocaine 5 % topical patch 1 patch topical DAILY #15 ea 08/03/22 08/19/22 Rx diclofenac sodium 75 mg 75 mg PO BID PRN Pain 08/05/22 08/19/22 History tablet,delayed release amlodipine 5 mg tablet 5 mg PO QAM #30 tabs 08/13/22 08/19/22 Rx Patient History Medical History Bronchitis Chest pain Dyslipidemia GE reflux Gout Hypertension Laceration of multiple sites of left hand and fingers Light chain myeloma Obstructive sleep apnea Tendon laceration Type 2 diabetes mellitus Vitamin D deficiency Surgical History History of surgery on arm Family History Father Alzheimer disease Dyslipidemia Mother Diabetes Coronary heart disease Other Family history non-contributory Social History Smoking Status: Never smoker Second Hand Exposure: No; Hx Alcohol Use: No Hx Substance Use: No Preferred Language: Greenlandic Communication Ability: Effective 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 Beliefs That Will Affect Care: None marital status: Single marital status details: no children Current Living Situation: Parent Current Living Situation Comment: Takes care of mother current occupational status: retired Other Information That Helps Us Care for You: No Feels Safe at Home: Yes Safety Concerns: Feels Safe At This Time Assistive Devices: None and Walker Assistive Devices Comment: Walker for 2 weeks Physical Exam Physical Exam: Mildly hypotensive but without tachycardia and vital signs are otherwise stable Alert, cooperative, appropriate, fully intact cognitive function the medical decision making Lungs are clear Cardiac rhythm is rate without pathological murmur The abdomen seems completely benign No peripheral pathologic adenopathy Strength seems intact in all 4 extremities Results & Data ([facility]) Vital Signs (Past 12 Hours) Vital Signs Temp Pulse Pulse Resp BP BP Pulse Ox 08/19/22 08:09 36.8 C 71 19 81/53 L 100 08/19/22 03:11 66 08/19/22 02:16 08/19/22 02:16 36.5 C 65 16 95/60 L 99 08/18/22 23:42 84 18 118/56 L 93 08/18/22 23:42 08/18/22 21:47 82 20 99/63 L 98 Pulse Ox O2 Del Method O2 Del Method 08/19/22 08:09 Room Air 08/19/22 03:11 08/19/22 02:16 Room Air 08/19/22 02:16 Room Air 08/18/22 23:42 Room Air 08/18/22 23:42 93 Room Air 08/18/22 21:47 Room Air Laboratory Results Laboratory Results - last 24 hr 08/18/22 08/18/22 08/18/22 17:35 17:35 17:35 WBC 5.68 RBC 3.89 L Hgb 12.7 L Hct 35.2 L MCV 90.5 MCH 32.6 MCHC 36.1 H RDW Std Deviation 44.6 RDW Coeff of Jose Juan 13.7 Plt Count 171 MPV 10.5 Immature Gran % (Auto) 1.2 Neut % (Auto) 84.1 Lymph % (Auto) 7.2 [place] % (Auto) 5.5 Eos % (Auto) 1.8 Baso % (Auto) 0.2 Neut # (Auto) 4.78 Lymph # (Auto) 0.41 L [place] # (Auto) 0.31 Eos # (Auto) 0.10 Baso # (Auto) 0.01 Immature Gran # (Auto) 0.07 H Sodium 132 L Potassium 5.0 Chloride 103 Carbon Dioxide 19 L Anion Gap 10 BUN 67 H Creatinine 2.44 H Est Cr Clr Drug Dosing 30.1 Est GFR ( Amer) 30.1 Est GFR (Non-Af Amer) 26.0 BUN/Creatinine Ratio 27.5 H Glucose 361 H* POC Glucose Uric Acid Calcium 9.2 Phosphorus Magnesium 1.7 Total Bilirubin 0.6 AST 11 L ALT 22 Alkaline Phosphatase 89 Ammonia Troponin I High Sens 42.5 H Total Protein 6.1 Albumin 3.4 Globulin 2.7 Albumin/Globulin Ratio 1.3 SARS-CoV-2, RNA, NAAT NEGATIVE 08/18/22 08/18/22 08/19/22 21:19 23:58 02:16 WBC RBC Hgb Hct MCV MCH MCHC RDW Std Deviation RDW Coeff of Jose Juan Plt Count MPV Immature Gran % (Auto) Neut % (Auto) Lymph % (Auto) [place] % (Auto) Eos % (Auto) Baso % (Auto) Neut # (Auto) Lymph # (Auto) [place] # (Auto) Eos # (Auto) Baso # (Auto) Immature Gran # (Auto) Sodium Potassium Chloride Carbon Dioxide Anion Gap BUN Creatinine Est Cr Clr Drug Dosing Est GFR ( Amer) Est GFR (Non-Af Amer) BUN/Creatinine Ratio Glucose POC Glucose 196 H 164 H Uric Acid Calcium Phosphorus Magnesium Total Bilirubin AST ALT Alkaline Phosphatase Ammonia 23.0 Troponin I High Sens Total Protein Albumin Globulin Albumin/Globulin Ratio SARS-CoV-2, RNA, NAAT 08/19/22 08/19/22 08/19/22 05:12 05:12 05:12 WBC 3.30 L RBC 3.32 L Hgb 10.9 L Hct 30.8 L MCV 92.8 MCH 32.8 MCHC 35.4 RDW Std Deviation 46.5 H RDW Coeff of Jose Juan 13.8 Plt Count 127 L MPV 10.5 Immature Gran % (Auto) 1.2 Neut % (Auto) 70.4 Lymph % (Auto) 14.5 [place] % (Auto) 9.1 Eos % (Auto) 4.5 Baso % (Auto) 0.3 Neut # (Auto) 2.32 Lymph # (Auto) 0.48 L [place] # (Auto) 0.30 Eos # (Auto) 0.15 Baso # (Auto) 0.01 Immature Gran # (Auto) 0.04 H Sodium 138 Potassium 4.6 Chloride 110 H Carbon Dioxide 22 Anion Gap 6 BUN 58 H Creatinine 2.06 H D Est Cr Clr Drug Dosing 35.5 Est GFR ( Amer) 37.0 Est GFR (Non-Af Amer) 31.9 BUN/Creatinine Ratio 28.2 H Glucose 140 H POC Glucose Uric Acid Pending Calcium 8.2 L Phosphorus 4.5 Magnesium 1.6 L Total Bilirubin AST ALT Alkaline Phosphatase Ammonia Troponin I High Sens 41.6 H Total Protein Albumin Globulin Albumin/Globulin Ratio SARS-CoV-2, RNA, NAAT 08/19/22 07:36 WBC RBC Hgb Hct MCV MCH MCHC RDW Std Deviation RDW Coeff of Jose Juan Plt Count MPV Immature Gran % (Auto) Neut % (Auto) Lymph % (Auto) [place] % (Auto) Eos % (Auto) Baso % (Auto) Neut # (Auto) Lymph # (Auto) [place] # (Auto) Eos # (Auto) Baso # (Auto) Immature Gran # (Auto) Sodium Potassium Chloride Carbon Dioxide Anion Gap BUN Creatinine Est Cr Clr Drug Dosing Est GFR ( Amer) Est GFR (Non-Af Amer) BUN/Creatinine Ratio Glucose POC Glucose 137 H Uric Acid Calcium Phosphorus Magnesium Total Bilirubin AST ALT Alkaline Phosphatase Ammonia Troponin I High Sens Total Protein Albumin Globulin Albumin/Globulin Ratio SARS-CoV-2, RNA, NAAT Diagnostic Findings Cervical Spine CT 08/18/22 17:26 CT cervical spine wo con CLINICAL HISTORY: fall, neck pain TECHNIQUE: Multidetector row helical CT of the cervical spine was performed without administration of intravenous contrast. Coronal and sagittal reformations were obtained. Automated dose lowering techniques and/or adjustment according to patient size were utilized for this exam. Comparison: None available at the time of this dictation. FINDINGS: No acute fractures or subluxations are identified. Degenerative changes are seen in the visualized spine. There is a lytic lesion in the left transverse process of T6 with a few smaller lytic lesions noted.. Soft tissues are unremarkable. IMPRESSION: Degenerative changes and lytic lesions noted without acute fracture. ACT 112: Negative or not required by law. Electronically signed by: Jalil Sargent M.D. 08/18/2022 6:[address] 08/18/22 17:26 CT head/brain wo con CLINICAL HISTORY: fall Technique: Contiguous axial CT images of the head were acquired from the base of the skull to the vertex without intravenous contrast administration. Images were viewed in brain, subdural and bone windows. Automated dose lowering techniques and/or adjustment according to patient size were utilized for this exam. Comparison: Comparison is made to CT head 08/25/2007 Findings: Areas of decreased attenuation are present in the periventricular and subcortical white matter bilaterally consistent with small vessel ischemic disease. Generalized cerebral atrophy with commensurate enlargement of the ventricles, sulci, and cisterns is also present. There is no acute intracranial hemorrhage or evidence of acute territorial infarction. No shift of the midline structures, mass effect, or extra-axial abnormalities are shown. Atherosclerotic calcifications are present in the intracranial segments of the internal carotid arteries. Imaged portions of the paranasal sinuses and mastoid air cells are clear. The orbits appear normal. There are no acute fractures of the calvaria or scalp swelling. Impression: No acute intracranial hemorrhage, no evidence of acute territorial infarction or other acute intracranial disease process. ACT 112: Negative or not required by law. Electronically signed by: Jalil Sargent M.D. 08/18/2022 6:[address] 08/18/22 17:26 CT lumbar spine wo con CLINICAL HISTORY: fall, back pain, h/o metastatic disease TECHNIQUE: Multidetector row helical CT of the lumbar spine was performed without administration of intravenous contrast. Coronal and sagittal reformations were obtained. Automated dose lowering techniques and/or adjustment according to patient size were utilized for this exam. Comparison: Comparison is made to CT lumbar spine 08/02/2022 FINDINGS: Redemonstration of osteopenia and acute to subacute superior endplate compression fracture of L1. No significant retropulsion is again seen at this level. No acute fractures are identified. Partial visualization of previously seen left iliac wing lytic lesion. Mild degenerative changes are seen. Minimal anterolisthesis seen at L4-L5. Surrounding soft tissues are unremarkable. IMPRESSION: 1. Redemonstration of L1 compression deformity without retropulsion. No acute fracture is seen. 2. Redemonstration of osteopenia and lytic lesions, most prominently in L1 and in the left iliac wing. 3. Degenerative changes. ACT 112: Negative or not required by law. Electronically signed by: Jalil Sargent M.D. 08/18/2022 6:[address] 08/18/22 17:26 CT thoracic spine wo con CLINICAL HISTORY: fall, back pain TECHNIQUE: Multidetector row helical CT of the thoracic spine was performed without administration of intravenous contrast. Coronal and sagittal reformations were obtained. Automated dose lowering techniques and/or adjustment according to patient size were utilized for this exam. Comparison: Comparison is made to CT chest 08/05/2022 FINDINGS: There is likely a small pathologic fracture in the T7 vertebral body associated with a lytic lesion. This fracture was likely present in the prior CT chest. Degenerative changes are noted in the visualized spine. Partial visualization of multiple lytic lesions with soft tissue masses, for example with bony destruction of the left eighth rib. Please see CT lumbar spine for findings of L1 fracture. Surrounding soft tissues are unremarkable. IMPRESSION: Multiple lytic lesions with redemonstration of pathologic fractures, most prominently in the T7 vertebral body and left eighth rib head. ACT 112: Negative or not required by law. Electronically signed by: Jalil Sargent M.D. 08/18/2022 6:27 PM PG Care Time/CCT Total # of Minutes Spent Total Time Spent with Patient: Total time spent is greater than 50% in coordination of care (as documented) at patient's floor/unit and/or counseling patient: Coding Level of Care Code New Pt INP/OBS CONSULT LVL 4, 60 MIN Patient Type New History Problem Focused Exam Problem Focused Medical Decision Making High Complexity Diagnoses Light chain myeloma C90.00 Pain R52
[2022-08-19] MEDS: GLUCOSAMINE SULFATE 500 MG CAP PO SCH (08:38)
[2022-08-19] MEDS: CHOLECALCIFEROL 1,000 UNITS 25 MCG TAB PO SCH (08:38)
[2022-08-19] MEDS: LIDOCAINE 5% 1 PATCH TD SCH (08:38)
[2022-08-19] MEDS: ASPIRIN 81 MG ECTAB PO SCH (08:38)
[2022-08-19] MEDS: LANTUS PER UNIT CHARGE SQ SCH ×2 (08:42→20:42)
[2022-08-19] MEDS: INSULIN ASPART PER UNIT SC SCH ×5 (08:42→20:41)
[2022-08-19] MEDS ORDERED: amLODIPine BESYLATE 5 MG TAB PO SCH (09:00)
[2022-08-19] MEDS: HEPARIN SOD 5,000 UNIT/0.5 ML VIAL SQ SCH ×3 (09:03→20:40)
--- NOTE | 2022-08-19 09:42 | Radiation OncologyConsultation ---
Date of Consultation August 19, 2022 Assessment & Plan (1) Light chain myeloma: Plan Mr. 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 Previously hospitalized due to back pain. Multiple studies have shown lytic lesions of the thoracic spine, lumbar spine and pelvis. He was initially seen as an inpatient and then discharged. Radiation therapy was started urgently for palliation of pain. He had received 4 of 10 fractions of radiation therapy. He called our office yesterday stating that he was unable to come in for his treatment due to pain. Our office directed him to come to the emergency room. The caregiver was unable to bring him by car and therefore he was brought by ambulance. He has had recheck studies. He did fall and injure his head. There were no findings on his CT of the head. CTs of the lumbar spine and thoracic spine are similar. There is a T7 compression fracture. Today he continues to have significant pain. He is not having benefit yet with the medications. We had arranged for him to have palliative care consult in our office yesterday. This did not happen due to the admission. We did make Dr. Smith aware that he is an inpatient. He was in agreement to go forward with his radiation treatment today. He will be premedicated prior to coming to the radiation department. ATTENDING ADDENDUM Patient's case reviewed with midlevel provider. Patient is admitted to the hospital for reasons unrelated to radiation therapy. Plan will be to bring patient down for radiation therapy for palliation. History of Present Illness Reason for Consultation: Ongoing treatment with radiation. Requesting Physician: Otto Montes De Oca MD Attending Physician: Otto Bennett MD History of Present Illness 08/02/2022. Patient is admitted to the hospital with complaints of low back pain. 08/02/2022. CT lumbar spine. 1. There is an osteolytic lesion in the left iliac wing. This is highly suspicious for bony metastatic disease. Correlate with the patient's oncological history. 2. There is an acute superior endplate compression fracture of L1 with mild loss of height. No significantly retropulsed fragments are seen. 3. No additional acute fracture is identified. 4. Degenerative disc disease as above. 08/05/2022. CT chest. 1. Multiple scattered lytic/destructive osseous lesions as described above consistent with metastatic disease. These result in pathologic fractures of the right medial clavicle and left seventh rib. No pneumothorax 2. Stable 5 mm nodule within the left lower lobe. No new pulmonary nodules identified. 3. The abdominal structures will be reported separately. 08/05/2022. CT abdomen pelvis. 1. Numerous osteolytic skeletal lesions are redemonstrated suggestive of metastasis versus multiple myeloma. 2. Acute nondisplaced pathologic fracture involving of the lateral left seventh rib with additional multifocal areas of bony destruction as above. 3. Unchanged appearance of the acute pathologic L1 fracture, stable from 08/02/2022. 4. No bowel obstruction or bowel wall thickening. 5. Right nephrolithiasis. 6. Cholelithiasis. 08/06/2022. Medical oncology consultation by Dr. Jesus. Recommendation is for completion of work-up for potential myeloma. Orthopedic surgery consultation also recommended. 08/07/2022. Orthopedic surgery consultation. No plan for surgical intervention. Refer to orthopedic oncology if biopsy needed. 08/09/2022. Radiation oncology consultation. Recommendation for palliative radiation therapy. 08/11/2022. Initiation of palliative radiation therapy. Treatment given to the T-spine and pelvis. He has received 4 of 10 fractions of therapy. 08/18/2022. Patient called stating that he was unable to have his treatment today. He had increased pain in his back. He was directed by our office to go to the emergency room. The patient did not fall. There was a contusion to the head and no loss of consciousness. 08/18/2022. CT of the head. No acute intracranial hemorrhage, no evidence of acute territorial infarct or other acute intracranial disease process. 08/18/2022. CT of the lumbar spine. Remonstration of L1 compression fracture deformity without retropulsion. No acute fracture is seen. Redemonstration of osteopenia and lytic lesions, most prominently in L1 and in the left iliac wing. 08/18/2022. CT of the thoracic spine. Multiple lytic lesion with remonstration of pathologic fractures, most prominently in the T7 vertebral body and left eighth rib head. 08/19/2022. Medical oncology consultation (Dr. Jesus). Orthopedic recommendation for possible kyphoplasty. Possible bone biopsy. I spoke with the patient. He is in agreement to continue his treatments. Concerned about being transferred from the bed to the treatment table. He will be given pain medication prior to being brought to radiation oncology. Allergies Allergy/AdvReac Type Severity Reaction Status Date / Time amoxicillin [From Augmentin] Allergy Intermediate SWELLING Verified 08/16/22 15:17 AROUND EYES clavulanic acid Allergy Intermediate SWELLING Verified 08/16/22 15:17 AROUND THE EYES Penicillins Allergy Intermediate AUGMENTIN Verified 08/16/22 15:17 - SWELLING AROUND THE EYES diflunisal AdvReac Intermediate VOMITING Verified 08/16/22 15:17 valsartan [From Diovan] AdvReac Intermediate Vomiting Verified 08/16/22 15:17 Home Medications Medication Instructions Recorded Confirmed Type aspirin 81 mg tablet,delayed 81 mg PO DAILY 05/22/19 08/19/22 History release atorvastatin 40 mg tablet (Lipitor) 40 mg PO HS 08/09/19 08/19/22 History hydrochlorothiazide 12.5 mg capsule 12.5 mg PO DAILY 09/16/19 08/19/22 History lisinopril 20 mg tablet 20 mg PO DAILY 09/16/19 08/19/22 History metformin 500 mg tablet See Rx Instructions .Route .COMPLEX 09/16/19 08/19/22 History pen needle, diabetic 32 gauge x #100 ea 10/23/19 08/19/22 Rx 5/32" (BD Ultra-Fine Augustina Pen Needle) cholecalciferol (vitamin D3) 25 1,000 units PO DAILY 01/27/20 08/19/22 History mcg (1,000 unit) tablet multivitamin (Multiple Vitamins 1 tab PO DAILY 01/27/20 08/19/22 History tablet) glucosamine HCl 500 mg tablet 500 mg PO DAILY 08/20/20 08/19/22 History metoprolol tartrate 50 mg tablet 50 mg PO BID #180 tabs 11/16/21 08/19/22 Rx insulin degludec 100 unit/mL (3 33 unit (0.33 mL) subcut HS #2 04/05/22 08/19/22 Rx mL) subcutaneous pen (Tresiba Boxes FlexTouch U-100 insulin) semaglutide 2 mg/dose (8 mg/3 mL) 2 mg (0.75 mL) subcut Q7D #3 mL 05/03/22 08/19/22 Rx subcutaneous pen injector blood sugar diagnostic (Accu-Chek #100 ea 05/23/22 08/19/22 Rx Josephine Plus test strips) oxycodone 5 mg tablet 5 mg PO Q6H severe pain #12 tabs 08/02/22 08/19/22 Rx lidocaine 5 % topical patch 1 patch topical DAILY #15 ea 08/03/22 08/19/22 Rx diclofenac sodium 75 mg 75 mg PO BID PRN Pain 08/05/22 08/19/22 History tablet,delayed release amlodipine 5 mg tablet 5 mg PO QAM #30 tabs 08/13/22 08/19/22 Rx Patient History Medical History Bronchitis Chest pain Dyslipidemia GE reflux Gout Hypertension Laceration of multiple sites of left hand and fingers Light chain myeloma Obstructive sleep apnea Tendon laceration Type 2 diabetes mellitus Vitamin D deficiency Surgical History History of surgery on arm Family History Father Alzheimer disease Dyslipidemia Mother Diabetes Coronary heart disease Other Family history non-contributory Social History Smoking Status: Never smoker Second Hand Exposure: No; Hx Alcohol Use: No Hx Substance Use: No Preferred Language: Azerbaijani Communication Ability: Effective Tape Librarian Required: No Beliefs That Will Affect Care: None marital status: Single marital status details: no children Current Living Situation: Parent Current Living Situation Comment: Takes care of mother current occupational status: retired Feels Safe at Home: Yes Assistive Devices: None and Walker Review of Systems Review of Systems: 13 point review of systems completed. No other complaints other than what is in history of present illness. He does have lethargy. Physical Exam Physical Exam: Awake and alert Eyes: PERRL, conjunctivae normal, anicteric sclerae ENMT: Ears: no hearing impairment Neck: trachea midline, no thyromegaly Respiratory: normal respiratory effort, lungs clear to auscultation Cardiovascular: RRR, no murmur, no edema Musculoskeletal: Examination of his back reveals mild tenderness in the mid to lower thoracic spine. There are no masses. Pain patch is in place. Skin: no rashes, warm and dry Neurologic: Equal strength and coordination of upper and lower extremities. Psychiatric: A+Ox3, euthymic affect Results (Rad Onc) Pathology Results: were reviewed and pertinent findings noted in HPI Time Spent Midlevel I spent [15] minutes in preparation for this follow up evaluation including reviewing all the clinical records, reviewing laboratory studies, pathology reports and imaging results. I spent [25] minutes with direct face to face interaction with the patient and/or family including performing a physical exam and answering all questions. I spent [15] minutes documenting this patient's visit.
[2022-08-19] MEDS ORDERED: dexAMETHasone 4 MG TAB PO ONE (11:00)
[2022-08-19 12:00] LABS: Appearance Urine Clear (Clear); Bacteria Urine Automated Negative (Negative); Bilirubin Urine Negative (Negative); Blood Urine Negative (Negative); Color Urine Yellow; Epithelial Cell Urine Auto >30 /lpf (0-5); Glucose Urine UA Negative (Negative); Ketones Urine Negative (Negative); Leukocyte Esterase Urine Negative (Negative); Nitrite Urine Negative (Negative); Protein Urine 1+ (Negative); RBC Urine Automated 0-4 /hpf (0-4); Specific Gravity Urine 1.012 (1.000-1.030); Urobilinogen Urine Negative (Negative)
[2022-08-19] MEDS: fentaNYL 25 MCG/HR TDSY TD SCH (12:37)
--- NOTE | 2022-08-19 14:20 | Hospitalist Progress Note ---
Date of Service August 19, 2022 Assessment & Plan (1) Light chain myeloma: Plan: Oncology and radiation oncology consultations and recommendations appreciated. He is now on high-dose dexamethasone therapy. He continues with radiation treatments. Fentanyl patch started today, August 19, to assist with bone pain control. Continue oxycodone as needed. (2) Acute renal failure: Plan: Creatinine improving with IV fluids. We will continue to monitor intake and output. Serial labs. (3) Elevated troponin level: Plan: No evidence of acute coronary syndrome. No acute EKG changes. No chest pain. (4) Type 2 diabetes mellitus: Plan: ADA diet. Sliding scale coverage. Lantus therapy. Metformin is on hold. A1c 6.4% on last admission. (5) Hypertension: Plan: Low blood pressure noted this morning, August 19. Amlodipine has been discontinued. Diuretic has been discontinued. Continue metoprolol. We will follow. (6) Dyslipidemia: Plan: Continue atorvastatin. Plan OT and PT assessments requested. Disposition to be determined. Admission and Anticipated Discharge Date Admission Date: August 18, 2022 Subjective Alert and oriented. No new problems. Case discussed multiple times with oncology. He is now on high-dose dexamethasone therapy. He will continue with radiation treatments. Blood pressure was low this morning but he felt only weakness. Amlodipine placed on hold. He remains on IV fluids and received a fluid bolus. Creatinine improved down to 2.0. Topical fentanyl patch added for bone pain control. OT and PT assessments requested. Review of Systems Review of Systems: Constitutional-no fever or chills ENT-no blurred vision, no double vision, no epistaxis, no sore throat Respiratory-no cough, no wheezing, no shortness of breath Cardiac-no palpitations, no chest pain, no syncope GI-no nausea, vomiting, diarrhea, melena, hematochezia -no urinary retention, no urinary incontinence, no dysuria, no hematuria Musculoskeletal-low back pain from lumbar involvement with multiple myeloma. Skin-no bruising, no rashes, no pruritus Neuro-no isolated weakness, no paresthesia, no weakness Psych-no depression, no anxiety Physical Exam Physical Exam: General-alert and oriented x3, no fevers, no chills HEENT-head atraumatic and normocephalic, pupils equal and reactive to light, extraocular muscles intact Neck-no lymphadenopathy or thyromegaly, trachea midline Chest-clear to auscultation percussion. No rales wheezing or rhonchi Cardiac-regular rate and rhythm, normal S1 and S2 Abdomen-normal bowel sounds, nontender, no hepatosplenomegaly Extremities-no cyanosis, clubbing, or edema Neuro-cranial nerves II through XII intact, motor and sensory function within normal limits, strength symmetrical , no focal deficits Psych-normal affect, normal mood Results & Data Results & Data ([facility]) Vital Signs (Past 12 Hours) Vital Signs Temp Pulse Pulse Resp BP BP Pulse Ox 08/19/22 11:28 36.4 C L 76 20 96/61 L 99 08/19/22 07:30 67 08/19/22 08:09 36.8 C 71 19 81/53 L 100 08/19/22 03:11 66 08/19/22 02:16 08/19/22 02:16 36.5 C 65 16 95/60 L 99 O2 Del Method 08/19/22 11:28 Room Air 08/19/22 07:30 08/19/22 08:09 Room Air 08/19/22 03:11 08/19/22 02:16 Room Air 08/19/22 02:16 Room Air Laboratory Results 08/19/22 05:12 08/19/22 05:12 PG Care Time/CCT Total # of Minutes Spent Total Time Spent with Patient: Total time spent is greater than 50% in coordination of care (as documented) at patient's floor/unit and/or counseling patient: Coding Level of Care Code 22410 SUB INP/OBS CARE 3/50MIN Diagnoses Light chain myeloma C90.00 Acute renal failure N17.9 Acute renal failure type: unspecified Elevated troponin level R77.8 Type 2 diabetes mellitus E11.9 Hypertension I10 Dyslipidemia E78.5 (1) Acute renal failure Acute renal failure type: unspecified Qualified Code(s): N17.9 - Acute kidney failure, unspecified
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
--- NOTE | 2022-08-19 15:22 | Electrocardiogram Report ---
Test Reason : Blood Pressure : / mmHG Vent. Rate : 099 BPM Atrial Rate : 099 BPM P-R Int : 144 ms QRS Dur : 078 ms QT Int : 322 ms P-R-T Axes : 044 -45 046 degrees QTc Int : 413 ms Normal sinus rhythm Left anterior fascicular block Poor R wave progression, consider anterior [place] vs. lead placement vs. LVH Abnormal ECG When compared with ECG of 05-AUG-2022 20:13, No significant change was found Confirmed by Sloan Castellano ([id number]) on 08/19/2022 3:21:41 PM Referred By: REFERRED SELF Confirmed By:Sloan Castellano
[2022-08-19] MEDS: CHECK fentaNYL PATCH PLACEMENT SCH (16:08)
[2022-08-19] MEDS: ATORVASTATIN 40 MG TAB PO SCH (20:40)
[2022-08-20] MEDS: CHECK fentaNYL PATCH PLACEMENT SCH ×4 (01:15→23:01)
[2022-08-20 05:44] LABS: Hematocrit (blood only) 29.8 % (40.1-51.0); Hemoglobin 10.8 g/dl (14.0-18.0); Mean Corpuscular Hemoglobin 32.7 pg (25.0-34.0); Mean Corpuscular Hgb Conc 36.2 g/dL (32.0-36.0); Mean Corpuscular Volume 90.3 fL (80.0-100.0); Mean Platelet Volume 10.4 fL (9.4-12.4); Platelet Count 125 K/uL (130-400); RDW Coefficient of Variation 13.3 % (11.5-14.5); RDW Standard Deviation 43.6 fL (36.4-46.3); White Blood Count 4.53 K/ul (4.8-10.8)
[2022-08-20 06:11] LABS: Calcium 8.1 mg/dl (8.5-10.1); Potassium 4.9 mmol/L (3.5-5.1)
[2022-08-20 06:14] LABS: Immature Granulocytes # (auto) 0.03 K/uL (0.00-0.02); Immature Granulocytes % (auto) 0.7 %; Lymphocytes # (auto) 0.27 K/uL (1.2-3.4); Monocytes % (auto) 2.2 %; Neutrophils # (auto) 4.13 K/uL (1.4-6.5); Neutrophils % (auto) 91.1 %
[2022-08-20 06:17] LABS: BUN Creatinine Ratio 31.3 (10-20); Creatinine Clr Calc Pharmacy 40.8 ml/min; Est GFR (African American) 43.8 ml/min; Est GFR (Non-African American) 37.8 ml/min
[2022-08-20] MEDS: INSULIN ASPART PER UNIT SC SCH ×4 (08:17→21:43)
[2022-08-20] MEDS: LANTUS PER UNIT CHARGE SQ SCH ×2 (08:17→21:43)
[2022-08-20] MEDS: METOPROLOL TARTRATE 50 MG TAB PO SCH ×2 (08:21→21:40)
[2022-08-20] MEDS: CHOLECALCIFEROL 1,000 UNITS 25 MCG TAB PO SCH (08:21)
[2022-08-20] MEDS: ASPIRIN 81 MG ECTAB PO SCH (08:21)
[2022-08-20] MEDS: GLUCOSAMINE SULFATE 500 MG CAP PO SCH (08:21)
[2022-08-20] MEDS: HEPARIN SOD 5,000 UNIT/0.5 ML VIAL SQ SCH ×2 (08:22→21:42)
[2022-08-20] MEDS: LIDOCAINE 5% 1 PATCH TD SCH (08:22)
[2022-08-20] MEDS: dexAMETHasone 4 MG TAB PO SCH (10:11)
--- NOTE | 2022-08-20 14:38 | Hospitalist Progress Note ---
Date of Service August 20, 2022 Assessment & Plan (1) Light chain myeloma: Plan: Appreciate oncology and radiation oncology input. He is now on high-dose steroid therapy and receiving radiation. Orthopedic consultation by Dr. Agustin Duncan pending to determine if kyphoplasty will aid in any way with his back pain. (2) Cancer related pain: Plan: Addition of fentanyl patch has helped considerably. We will continue Oxy IR as needed also (3) Acute renal failure: Plan: Creatinine trending down with IV fluids. Monitor intake and output. Serial labs (4) Elevated troponin level: Plan: No evidence of acute coronary syndrome. No acute EKG changes. No chest pain (5) Hypertension: Plan: Blood pressure was actually low this admission. Amlodipine remains on hold. (6) Type 2 diabetes mellitus: Plan: ADA diet. Sliding scale coverage. Insulin therapy as needed Plan Anticipate eventual discharge to home, sometime next week Admission and Anticipated Discharge Date Admission Date: August 18, 2022 Subjective Alert and oriented. Family is at the bedside. He states the fentanyl patch has helped considerably and he rates his pain is only a 1 out of 10. Case discussed with Dr. Agustin Duncan who will see the patient today. Creatinine trending down. Blood pressure remains stable off amlodipine. Review of Systems Review of Systems: Constitutional-no fever or chills ENT-no blurred vision, no double vision, no epistaxis, no sore throat Respiratory-no cough, no wheezing, no shortness of breath Cardiac-no palpitations, no chest pain, no syncope GI-no nausea, vomiting, diarrhea, melena, hematochezia -no urinary retention, no urinary incontinence, no dysuria, no hematuria Musculoskeletal-no joint pain, no muscle tenderness Skin-no bruising, no rashes, no pruritus Neuro-no isolated weakness, no paresthesia, no weakness Psych-no depression, no anxiety Physical Exam Physical Exam: General-alert and oriented x3, no fevers, no chills HEENT-head atraumatic and normocephalic, pupils equal and reactive to light, extraocular muscles intact Neck-no lymphadenopathy or thyromegaly, trachea midline Chest-clear to auscultation percussion. No rales wheezing or rhonchi Cardiac-regular rate and rhythm, normal S1 and S2 Abdomen-normal bowel sounds, nontender, no hepatosplenomegaly Extremities-no cyanosis, clubbing, or edema Neuro-cranial nerves II through XII intact, motor and sensory function within normal limits, strength symmetrical , no focal deficits Psych-normal affect, normal mood Results & Data Results & Data ([facility]) Vital Signs (Past 12 Hours) Vital Signs Temp Pulse Pulse Pulse Resp BP Pulse Ox 08/20/22 11:52 36.4 C L 60 16 119/74 98 08/20/22 10:33 08/20/22 07:48 36.4 C L 58 L 14 122/74 97 08/20/22 07:31 63 08/20/22 03:42 36.3 C L 63 16 98/60 L 97 O2 Del Method 08/20/22 11:52 Room Air 08/20/22 10:33 Room Air 08/20/22 07:48 Room Air 08/20/22 07:31 08/20/22 03:42 Room Air Laboratory Results 08/20/22 05:36 08/20/22 05:36 PG Care Time/CCT Total # of Minutes Spent Total Time Spent with Patient: Total time spent is greater than 50% in coordination of care (as documented) at patient's floor/unit and/or counseling patient: Coding Level of Care Code 85060 SUB INP/OBS CARE 3/50MIN Diagnoses Light chain myeloma C90.00 Cancer related pain G89.3 Acute renal failure N17.9 Acute renal failure type: unspecified Elevated troponin level R77.8 Hypertension I10 Type 2 diabetes mellitus E11.9 (1) Acute renal failure Acute renal failure type: unspecified Qualified Code(s): N17.9 - Acute kidney failure, unspecified
[2022-08-20] MEDS: ATORVASTATIN 40 MG TAB PO SCH (21:42)
[2022-08-21 06:28] LABS: Hematocrit (blood only) 30.2 % (40.1-51.0); Hemoglobin 10.8 g/dl (14.0-18.0); Mean Corpuscular Hemoglobin 32.4 pg (25.0-34.0); Mean Corpuscular Hgb Conc 35.8 g/dL (32.0-36.0); Mean Corpuscular Volume 90.7 fL (80.0-100.0); Mean Platelet Volume 11.3 fL (9.4-12.4); Platelet Count 121 K/uL (130-400); RDW Coefficient of Variation 13.2 % (11.5-14.5); RDW Standard Deviation 43.7 fL (36.4-46.3); Red Blood Count 3.33 M/uL (4.63-6.08)
[2022-08-21 06:48] LABS: Potassium 4.5 mmol/L (3.5-5.1)
[2022-08-21 06:54] LABS: BUN Creatinine Ratio 37.2 (10-20); Creatinine Clr Calc Pharmacy 50.2 ml/min; Est GFR (African American) 56.5 ml/min; Est GFR (Non-African American) 48.8 ml/min
[2022-08-21 07:09] LABS: Acanthocytes 3+; Basophils # (auto) 0.01 K/uL (0-0.2); Basophils % (auto) 0.1 %; Echinocytes 2+; Immature Granulocytes # (auto) 0.08 K/uL (0.00-0.02); Immature Granulocytes % (auto) 1.2 %; Lymphocytes # (auto) 0.21 K/uL (1.2-3.4); Lymphocytes % (auto) 3.1 %; Monocytes # (auto) 0.14 K/uL (0.24-0.82); Monocytes % (auto) 2.1 %; Neutrophils # (auto) 6.36 K/uL (1.4-6.5); Neutrophils % (auto) 93.5 %; Polychromasia 1+
[2022-08-21] MEDS: INSULIN ASPART PER UNIT SC SCH ×4 (08:31→20:52)
[2022-08-21] MEDS: CHECK fentaNYL PATCH PLACEMENT SCH ×2 (08:32→15:46)
[2022-08-21] MEDS: LANTUS PER UNIT CHARGE SQ SCH ×2 (08:32→20:51)
[2022-08-21] MEDS: LIDOCAINE 5% 1 PATCH TD SCH (08:33)
[2022-08-21] MEDS: GLUCOSAMINE SULFATE 500 MG CAP PO SCH (08:38)
[2022-08-21] MEDS: HEPARIN SOD 5,000 UNIT/0.5 ML VIAL SQ SCH ×2 (08:38→20:50)
[2022-08-21] MEDS: ASPIRIN 81 MG ECTAB PO SCH (08:39)
[2022-08-21] MEDS: CHOLECALCIFEROL 1,000 UNITS 25 MCG TAB PO SCH (08:39)
[2022-08-21] MEDS: METOPROLOL TARTRATE 50 MG TAB PO SCH ×2 (08:39→20:51)
[2022-08-21] MEDS: dexAMETHasone 4 MG TAB PO SCH (08:39)
--- NOTE | 2022-08-21 09:01 | Consultation ---
Date of Consultation August 21, 2022 Assessment & Plan (1) Closed compression fracture of L1 vertebra: Patient has multiple lytic lesions consistent with multiple with multiple myeloma on thoracic and lumbar CT scans. There are some associated fractures at these levels including T7 and L1. His pain seems to be most consistent with the L1 fracture. We have discussed both conservative and surgical intervention options. Conservatively this includes TLSO brace and pain medication. We have also discussed pursuing kyphoplasty of L1. At today's visit he states his pain under much better control with the addition of the fentanyl patch and would like to continue with conservative treatment. This is reasonable. I will order TLSO brace to be worn during the daytime hours, with ambulation and activity. May remove to sleep. no lifting greater than 5 pounds. History of Present Illness Reason for Consultation: Multiple myeloma of the spine Attending Physician: Otto Bennett MD History of Present Illness Is a very pleasant 67-year-old gentleman that we are asked to see in consultation regarding multiple myeloma of the spine with fractures found in the thoracic and lumbar spine. Patient's pain is located along the thoracolumbar region. This has been ongoing since mid June when he went to purchase a generator off of [place] and had to hold it for several minutes by himself. He has been taking [id number] Tylenol at home. He presented to the ER several days ago due to his back pain being uncontrolled at home. He does live at home alone. 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 He denies any radicular pain. Typically ambulates independently He states that since they added a fentanyl patch to his pain regimen his back pain is under much better control. Allergies Allergy/AdvReac Type Severity Reaction Status Date / Time amoxicillin [From Augmentin] Allergy Intermediate SWELLING Verified 08/16/22 15:17 AROUND EYES clavulanic acid Allergy Intermediate SWELLING Verified 08/16/22 15:17 AROUND THE EYES Penicillins Allergy Intermediate AUGMENTIN Verified 08/16/22 15:17 - SWELLING AROUND THE EYES diflunisal AdvReac Intermediate VOMITING Verified 08/16/22 15:17 valsartan [From Diovan] AdvReac Intermediate Vomiting Verified 08/16/22 15:17 Home Medications Medication Instructions Recorded Confirmed Type aspirin 81 mg tablet,delayed 81 mg PO DAILY 05/22/19 08/19/22 History release atorvastatin 40 mg tablet (Lipitor) 40 mg PO HS 08/09/19 08/19/22 History hydrochlorothiazide 12.5 mg capsule 12.5 mg PO DAILY 09/16/19 08/19/22 History lisinopril 20 mg tablet 20 mg PO DAILY 09/16/19 08/19/22 History metformin 500 mg tablet See Rx Instructions .Route .COMPLEX 09/16/19 08/19/22 History pen needle, diabetic 32 gauge x #100 ea 10/23/19 08/19/22 Rx 32" (BD Ultra-Fine Augustina Pen Needle) cholecalciferol (vitamin D3) 25 1,000 units PO DAILY 01/27/20 08/19/22 History mcg (1,000 unit) tablet multivitamin (Multiple Vitamins 1 tab PO DAILY 01/27/20 08/19/22 History tablet) glucosamine HCl 500 mg tablet 500 mg PO DAILY 08/20/20 08/19/22 History metoprolol tartrate 50 mg tablet 50 mg PO BID #180 tabs 11/16/21 08/19/22 Rx insulin degludec 100 unit/mL (3 33 unit (0.33 mL) subcut HS #2 04/05/22 08/19/22 Rx mL) subcutaneous pen (Tresiba Boxes FlexTouch U-100 insulin) semaglutide 2 mg/dose (8 mg/3 mL) 2 mg (0.75 mL) subcut Q7D #3 mL 05/03/22 08/19/22 Rx subcutaneous pen injector blood sugar diagnostic (Accu-Chek #100 ea 05/23/22 08/19/22 Rx Josephine Plus test strips) oxycodone 5 mg tablet 5 mg PO Q6H severe pain #12 tabs 08/02/22 08/19/22 Rx lidocaine 5 % topical patch 1 patch topical DAILY #15 ea 08/03/22 08/19/22 Rx diclofenac sodium 75 mg 75 mg PO BID PRN Pain 08/05/22 08/19/22 History tablet,delayed release amlodipine 5 mg tablet 5 mg PO QAM #30 tabs 08/13/22 08/19/22 Rx Patient History Medical History Advanced care planning/counseling discussion Bronchitis Cancer related pain Chest pain Dyslipidemia Edema GE reflux Gout Hypertension Laceration of multiple sites of left hand and fingers Light chain myeloma Obstructive sleep apnea Palliative care encounter Tendon laceration Type 2 diabetes mellitus Vitamin D deficiency Weakness generalized Surgical History History of surgery on arm Family History Father Alzheimer disease Dyslipidemia Mother Diabetes Coronary heart disease Other Family history non-contributory Social History Smoking Status: Never smoker Second Hand Exposure: No; Hx Alcohol Use: No Hx Substance Use: No Preferred Language: Belarusian Communication Ability: Effective 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 Beliefs That Will Affect Care: None marital status: Single marital status details: no children Current Living Situation: Parent Current Living Situation Comment: Takes care of mother current occupational status: retired Feels Safe at Home: Yes Assistive Devices: CPAP and Walker Review of Systems Review of Systems: All systems reviewed & are unremarkable except as noted in HPI & below Physical Exam Physical Exam: Patient sitting on the edge of the bed in no acute distress Alert and oriented x3 Strength is intact bilateral lower extremity He is nontender to palpation and percussion ~thoracolumbar spine midline No palpable step-offs Results & Data ([facility]) Vital Signs (Past 12 Hours) Vital Signs Temp Pulse Pulse Pulse Resp BP Pulse Ox 08/21/22 07:25 36.4 C L 74 18 116/60 97 08/21/22 07:07 60 08/21/22 03:04 36.2 C L 67 18 128/72 96 08/21/22 02:09 08/21/22 00:26 71 08/20/22 22:52 36.7 C 66 18 109/66 97 O2 Del Method O2 Del Method 08/21/22 07:25 Room Air 08/21/22 07:07 08/21/22 03:04 Room Air 08/21/22 02:09 Room Air 08/21/22 00:26 08/20/22 22:52 Room Air Diagnostic Findings [facility], [place] [phone] CT Scan Report Patient:LENNY CHRISTINE Admit Date:08/18/22 MR#:[id number] Address1:[address] Acct ID:[id number] Address2:[facility] [address] Date:1955 [facility] [place] Zip:[place] [address] Age:67 Location:ED Sex:M Room/Bed: Att Phy: Diagnosis:back pain Christine Phy:Maria Ines Damon D.O. Service Date:08/18/22 Fam Phy: Interpreting Phy:Jalil Sargent [facility] Phy: Ordering Phy:Sheridan Canchola PA-C cc: ~ CT thoracic spine wo con CLINICAL HISTORY: fall, back pain TECHNIQUE: Multidetector row helical CT of the thoracic spine was performed without administration of intravenous contrast. Coronal and sagittal reformations were obtained. Automated dose lowering techniques and/or adjustment according to patient size were utilized for this exam. Comparison: Comparison is made to CT chest 08/05/2022 FINDINGS: There is likely a small pathologic fracture in the T7 vertebral body associated with a lytic lesion. This fracture was likely present in the prior CT chest. Degenerative changes are noted in the visualized spine. Partial visualization of multiple lytic lesions with soft tissue masses, for example with bony destruction of the left eighth rib. Please see CT lumbar spine for findings of L1 fracture. Surrounding soft tissues are unremarkable. IMPRESSION: Multiple lytic lesions with redemonstration of pathologic fractures, most prominently in the T7 vertebral body and left eighth rib head. ACT 112: Negative or not required by law. Electronically signed by: Jalil Sargent M.D. 08/18/2022 6:27 PM Dictated:08/18/221819 Transcribed: 08/18/221819 [place], [place] [phone] CT Scan Report Patient:LENNY CHRISTINE Admit Date:08/18/22 MR#:[id number] Address1:[address] Acct ID:[id number] Address2:[place] [address] Date:1955 [facility] [place] Zip:[place] [address] Age:67 Location:ED Sex:M Room/Bed: Att Phy: Diagnosis:back pain Christine Phy:Maria Ines Damon D.O. Service Date:08/18/22 [facility] Phy: Interpreting Phy:Jalil Sargent MDAdmit Phy: Ordering Phy:Sheridan Canchola PA-C cc: ~ CT lumbar spine wo con CLINICAL HISTORY: fall, back pain, h/o metastatic disease TECHNIQUE: Multidetector row helical CT of the lumbar spine was performed without administration of intravenous contrast. Coronal and sagittal reformations were obtained. Automated dose lowering techniques and/or adjustment according to patient size were utilized for this exam. Comparison: Comparison is made to CT lumbar spine 08/02/2022 FINDINGS: Redemonstration of osteopenia and acute to subacute superior endplate compression fracture of L1. No significant retropulsion is again seen at this level. No acute fractures are identified. Partial visualization of previously seen left iliac wing lytic lesion. Mild degenerative changes are seen. Minimal anterolisthesis seen at L4-L5. Surrounding soft tissues are unremarkable. IMPRESSION: 1. Redemonstration of L1 compression deformity without retropulsion. No acute fracture is seen. 2. Redemonstration of osteopenia and lytic lesions, most prominently in L1 and in the left iliac wing. 3. Degenerative changes. ACT 112: Negative or not required by law. Electronically signed by: Jalil Sargent M.D. 08/18/2022 6:49 PM Dictated:08/18/221842 Transcribed: 08/18/221842 Document Auto-Saved (1) Closed compression fracture of L1 vertebra Encounter type: subsequent encounter
--- NOTE | 2022-08-21 13:56 | Hospitalist Progress Note ---
Date of Service August 21, 2022 Assessment & Plan (1) Light chain myeloma: Plan: Appreciate oncology and radiation oncology input. He is now on high-dose steroid therapy and receiving radiation. Orthopedic consultation by Dr. Agustin Duncan completed and there is no indication for kyphoplasty at this time. Back brace has been ordered. (2) Cancer related pain: Plan: Addition of fentanyl patch has helped considerably. We will continue Oxy IR as needed also (3) Acute renal failure: Plan: Creatinine continues to trend downward. Monitor intake and output. Serial labs (4) Elevated troponin level: Plan: No evidence of acute coronary syndrome. No acute EKG changes. No chest pain (5) Hypertension: Plan: Blood pressure was actually low this admission. Amlodipine remains on hold. Blood pressure is stable. (6) Type 2 diabetes mellitus: Plan: ADA diet. Sliding scale coverage. Insulin therapy uptitrated today, August 21 Plan Anticipate eventual discharge to home, hopefully tomorrow, August 22. Admission and Anticipated Discharge Date Admission Date: August 18, 2022 Subjective Alert and oriented. Back pain remains well controlled. Orthopedic spine surgery consultation noted. No kyphoplasty planned at this time. Spine brace has been ordered. Lantus dosage uptitrated today. Amlodipine remains on hold with satisfactory blood pressure. Continued creatinine improvement down to 1.4 Review of Systems Review of Systems: Constitutional-no fever or chills ENT-no blurred vision, no double vision, no epistaxis, no sore throat Respiratory-no cough, no wheezing, no shortness of breath Cardiac-no palpitations, no chest pain, no syncope GI-no nausea, vomiting, diarrhea, melena, hematochezia -no urinary retention, no urinary incontinence, no dysuria, no hematuria Musculoskeletal-no joint pain, no muscle tenderness Skin-no bruising, no rashes, no pruritus Neuro-no isolated weakness, no paresthesia, no weakness Psych-no depression, no anxiety Physical Exam Physical Exam: General-alert and oriented x3, no fevers, no chills HEENT-head atraumatic and normocephalic, pupils equal and reactive to light, extraocular muscles intact Neck-no lymphadenopathy or thyromegaly, trachea midline Chest-clear to auscultation percussion. No rales wheezing or rhonchi Cardiac-regular rate and rhythm, normal S1 and S2 Abdomen-normal bowel sounds, nontender, no hepatosplenomegaly Extremities-no cyanosis, clubbing, or edema Neuro-cranial nerves II through XII intact, motor and sensory function within normal limits, strength symmetrical , no focal deficits Psych-normal affect, normal mood Results & Data Results & Data ([facility]) Vital Signs (Past 12 Hours) Vital Signs Temp Pulse Pulse Pulse Resp BP Pulse Ox 08/21/22 11:13 36.4 C L 72 18 110/72 96 08/21/22 10:37 08/21/22 07:25 36.4 C L 74 18 116/60 97 08/21/22 07:07 60 08/21/22 03:04 36.2 C L 67 18 128/72 96 08/21/22 02:09 O2 Del Method O2 Del Method 08/21/22 11:13 Room Air 08/21/22 10:37 Room Air 08/21/22 07:25 Room Air 08/21/22 07:07 08/21/22 03:04 Room Air 08/21/22 02:09 Room Air Laboratory Results 08/21/22 05:19 08/21/22 05:19 PG Care Time/CCT Total # of Minutes Spent Total Time Spent with Patient: Total time spent is greater than 50% in coordination of care (as documented) at patient's floor/unit and/or counseling patient: Coding Level of Care Code 54005 SUB INP/OBS CARE 3/50MIN Diagnoses Light chain myeloma C90.00 Cancer related pain G89.3 Acute renal failure N17.9 Acute renal failure type: unspecified Elevated troponin level R77.8 Hypertension I10 Type 2 diabetes mellitus E11.9 (1) Acute renal failure Acute renal failure type: unspecified Qualified Code(s): N17.9 - Acute kidney failure, unspecified
[2022-08-21] MEDS: ATORVASTATIN 40 MG TAB PO SCH (20:48)
[2022-08-22] MEDS: CHECK fentaNYL PATCH PLACEMENT SCH ×3 (01:20→15:44)
[2022-08-22 06:19] LABS: Basophils # (auto) 0.02 K/uL (0-0.2); Basophils % (auto) 0.3 %; Eosinophils # (auto) 0.19 K/uL (0-0.50); Eosinophils % (auto) 2.9 %; Hemoglobin 11.4 g/dl (14.0-18.0); Immature Granulocytes # (auto) 0.07 K/uL (0.00-0.02); Immature Granulocytes % (auto) 1.1 %; Lymphocytes # (auto) 0.23 K/uL (1.2-3.4); Lymphocytes % (auto) 3.5 %; Mean Corpuscular Hemoglobin 32.8 pg (25.0-34.0); Mean Corpuscular Hgb Conc 35.6 g/dL (32.0-36.0); Mean Platelet Volume 10.9 fL (9.4-12.4); Monocytes # (auto) 0.27 K/uL (0.24-0.82); Monocytes % (auto) 4.1 %; Neutrophils # (auto) 5.84 K/uL (1.4-6.5); Neutrophils % (auto) 88.1 %; Platelet Count 110 K/uL (130-400); RDW Coefficient of Variation 13.5 % (11.5-14.5); RDW Standard Deviation 45.5 fL (36.4-46.3); Red Blood Count 3.48 M/uL (4.63-6.08); White Blood Count 6.62 K/ul (4.8-10.8)
[2022-08-22 06:46] LABS: BUN Creatinine Ratio 33.8 (10-20); Calcium 8.3 mg/dl (8.5-10.1); Creatinine Clr Calc Pharmacy 46.5 ml/min; Est GFR (African American) 56.5 ml/min; Est GFR (Non-African American) 48.8 ml/min; Potassium 4.4 mmol/L (3.5-5.1)
[2022-08-22] MEDS: GLUCOSAMINE SULFATE 500 MG CAP PO SCH (08:34)
[2022-08-22] MEDS: ASPIRIN 81 MG ECTAB PO SCH (08:34)
[2022-08-22] MEDS: HEPARIN SOD 5,000 UNIT/0.5 ML VIAL SQ SCH ×2 (08:34→20:48)
[2022-08-22] MEDS: METOPROLOL TARTRATE 50 MG TAB PO SCH ×2 (08:35→20:48)
[2022-08-22] MEDS: dexAMETHasone 4 MG TAB PO SCH (08:35)
[2022-08-22] MEDS: CHOLECALCIFEROL 1,000 UNITS 25 MCG TAB PO SCH (08:35)
[2022-08-22] MEDS: LIDOCAINE 5% 1 PATCH TD SCH (08:36)
[2022-08-22] MEDS: INSULIN ASPART PER UNIT SC SCH ×4 (08:45→20:48)
[2022-08-22] MEDS: LANTUS PER UNIT CHARGE SQ SCH ×2 (08:45→20:48)
[2022-08-22] MEDS: PANTOprazole 40 MG TAB PO SCH (09:45)
[2022-08-22] MEDS: SENNA 8.6 MG TAB PO SCH (09:45)
[2022-08-22] MEDS: POLYETHYLENE (MIRALAX) 17 GM PACK PO SCH (09:45)
[2022-08-22] MEDS: fentaNYL 25 MCG/HR TDSY TD SCH (12:11)
--- NOTE | 2022-08-22 20:10 | Hospitalist Progress Note ---
Date of Service August 22, 2022 Assessment & Plan (1) Light chain myeloma: Plan: Appreciate oncology and radiation oncology input. He is day 3 of 4 of high-dose dexamethasone 40mg daily. Added PPI for GI prophy in light of high-dose steroids. He is receiving XRT to the spine - he previously received 4 of 10 XRT treatments to his back prior to this hospital stay. He received another XRT session on 08/19, and again today. Fortunately his renal function has improved - Peak Cr 2.4, now 1.4 two days in a row. Calcium - levels very high early this month; now normal during this hospital stay -- s/p IV bisphosphonate therapy in early July. Plan moving forward -- first cycle of CyBorD within the next week per Isamar. Repeat CBC, BMP in am. Low platelets today - due to MM? (2) Cancer related pain: Plan: Initiated on 25mcg q72h of fentanyl patch in kaia of oxycontin. This, along with XRT and steroids, has allowed considerable pain relief. Cont the above. (3) Acute renal failure: Plan: resolved. Peak Cr 2.4. Now 1.4. BMP am. (4) Elevated troponin level: Plan: No evidence of acute coronary syndrome. No acute EKG change or ischemic symptoms. 2nd to myocardial demand ischemia. (5) Hypertension: Plan: Lisinopril, HCTZ, and amlodipine ALL on hold and BPs controlled without such. Remains on metoprolol BID with adequate control. (6) Type 2 diabetes mellitus: Plan: Cont lantus BID. Tighten novolog coverage in the presence of high-dose steroids. (7) Pathological compression fracture of spine: Plan: T7 L1 - which is the site of most of his pain Cont palliative XRT Cont fentanyl patch + oxycodone prn Steroids for #1 likely helping as well recent 25-OH vit D level = 77 appreciate ortho consult - no kyphoplasty/surgery recommended. TLSO brace arrived today via orthotics team - appreciate orthotics & orthopedics consults. Plan DVT proph - heparin SC will discuss his care with Dr Penn if labs tomorrow are stable, pain is controlled, and if Dr Penn feels patient is fit for discharge will attempt to d/c home on 08/23 Admission and Anticipated Discharge Date Admission Date: August 18, 2022 Subjective patient feels MUCH better overall his back pain is well-controlled today he can roll in bed without much pain, can ambulate (walked the hallways today unassisted MULTIPLE times comfortably), etc had XRT to back once again today did have BM in the last 24 hours eating well he is pleased with his progress tele overnight wnl Results & Data Results & Data ([facility]) Vital Signs (Past 12 Hours) Vital Signs Temp Pulse Pulse Resp BP Pulse Ox O2 Del Method 08/22/22 15:55 36.5 C 71 16 126/69 95 Room Air 08/22/22 15:45 61 08/22/22 11:28 36.8 C 66 16 137/68 96 Room Air PG Care Time/CCT Total # of Minutes Spent Total Time Spent with Patient: Total time spent is greater than 50% in coordination of care (as documented) at patient's floor/unit and/or counseling patient: Coding Level of Care Code 20462 SUB INP/OBS CARE 3/50MIN Diagnoses Light chain myeloma C90.00 Cancer related pain G89.3 Acute renal failure N17.9 Acute renal failure type: unspecified Elevated troponin level R77.8 Hypertension I10 Type 2 diabetes mellitus E11.9 Pathological compression fracture of spine M48.50XA (1) Acute renal failure Acute renal failure type: unspecified Qualified Code(s): N17.9 - Acute kidney failure, unspecified
[2022-08-22] MEDS: ATORVASTATIN 40 MG TAB PO SCH (20:48)
[2022-08-23] MEDS: CHECK fentaNYL PATCH PLACEMENT SCH ×3 (01:04→16:54)
[2022-08-23] MEDS: ASPIRIN 81 MG ECTAB PO SCH (08:12)
[2022-08-23] MEDS: METOPROLOL TARTRATE 50 MG TAB PO SCH ×2 (08:12→21:57)
[2022-08-23] MEDS: CHOLECALCIFEROL 1,000 UNITS 25 MCG TAB PO SCH (08:12)
[2022-08-23] MEDS: LIDOCAINE 5% 1 PATCH TD SCH (08:15)
[2022-08-23] MEDS: GLUCOSAMINE SULFATE 500 MG CAP PO SCH (08:15)
[2022-08-23] MEDS: HEPARIN SOD 5,000 UNIT/0.5 ML VIAL SQ SCH ×2 (08:15→21:55)
[2022-08-23 08:16] LABS: Hematocrit (blood only) 30.6 % (40.1-51.0); Hemoglobin 10.9 g/dl (14.0-18.0); Mean Corpuscular Hemoglobin 32.6 pg (25.0-34.0); Mean Corpuscular Hgb Conc 35.6 g/dL (32.0-36.0); Mean Corpuscular Volume 91.6 fL (80.0-100.0); Platelet Count 101 K/uL (130-400); RDW Coefficient of Variation 13.2 % (11.5-14.5); Red Blood Count 3.34 M/uL (4.63-6.08); White Blood Count 5.25 K/ul (4.8-10.8)
[2022-08-23] MEDS: SENNA 8.6 MG TAB PO SCH (08:16)
[2022-08-23] MEDS: PANTOprazole 40 MG TAB PO SCH (08:16)
[2022-08-23] MEDS: POLYETHYLENE (MIRALAX) 17 GM PACK PO SCH (08:16)
[2022-08-23] MEDS: INSULIN ASPART PER UNIT SC SCH ×4 (08:25→21:55)
[2022-08-23] MEDS: LANTUS PER UNIT CHARGE SQ SCH ×2 (08:25→21:56)
[2022-08-23 08:31] LABS: Calcium 7.9 mg/dl (8.5-10.1); Magnesium 1.6 mg/dl (1.7-2.4); Potassium 4.4 mmol/L (3.5-5.1)
[2022-08-23 08:37] LABS: BUN Creatinine Ratio 29.5 (10-20); Creatinine Clr Calc Pharmacy 48.9 ml/min; Est GFR (African American) 54.7 ml/min; Est GFR (Non-African American) 47.2 ml/min
[2022-08-23] MEDS: MAGNESIUM SULFATE / D5W 1 GM/100 ML BAG IV SCH ×2 (09:53→11:45)
--- NOTE | 2022-08-23 15:34 | Palliative Care Progress Note ---
Date of Service August 23, 2022 Assessment & Plan (1) Palliative care encounter: (2) Cancer related pain: Plan: Much improvement with TDF 25mcg q72h of fentanyl patch after failing oxycodone and oxycontin trials. Continues with XRT and steroids no changes (3) Light chain myeloma: Plan: continues high-dose dexamethasone 40mg daily. XRT to the spine in progress ARF improving First cycle of CyBorD within the next week per med onc (4) Acute renal failure: Plan: resolved. (5) Pathological compression fracture of spine: Plan Doing well with low dose TDF 25mcg q72h and decadron with XRT. NO changes needed. For now, I will follow peripherally as pt remains with improvement and stable. He can be followed in OP pall med clinic for ongoing pain anf sx mgt, we are able to accommodate pt via telemed if needed. Charo Patel DNP Clinical Director, Palliative Medicine Admission and Anticipated Discharge Date Admission Date: August 18, 2022 Subjective pain much improved with TDF + RT along with steroids likely will start chemo within the week, awaiting onc update mobility improved, ambulating freely and often mood improved no other concerns or complaints Review of Systems Review of Systems: All systems reviewed & are unremarkable except as noted in Subjective Physical Exam Physical Exam: mood improved, moving around bed easily for repositioning. no resp distress. Skin warm. AAOx3, mood is pleasant. Results & Data ([facility]) Vital Signs (Past 12 Hours) Vital Signs Temp Pulse Pulse Resp BP BP Pulse Ox 08/23/22 10:37 36.2 C L 68 20 122/77 96 08/23/22 08:12 79 113/69 08/23/22 07:32 36.2 C L 54 L 18 100/55 L 97 08/23/22 06:02 49 L 08/23/22 04:00 36.5 C 58 L 18 118/78 95 O2 Del Method 08/23/22 10:37 Room Air 08/23/22 08:12 08/23/22 07:32 Room Air 08/23/22 06:02 08/23/22 04:00 Room Air PG Care Time/CCT Total # of Minutes Spent Total Time Spent: 23 Total Time Spent with Patient: Total time spent is greater than 50% in coordination of care (as documented) at patient's floor/unit and/or counseling patient: Coding [place] [address] SUB INP/OBS CARE 08/24MIN Patient Type Established History Problem Focused Exam Problem Focused Medical Decision Making Low Complexity Diagnoses Palliative care encounter Z51.5 Cancer related pain G89.3 Light chain myeloma C90.00 Acute renal failure N17.9 Acute renal failure type: unspecified Pathological compression fracture of spine M48.50XA (1) Acute renal failure Acute renal failure type: unspecified Qualified Code(s): N17.9 - Acute kidney failure, unspecified
[2022-08-23] MEDS: CARBOHYDRATES FOR HYPOGLYCEMIA PO PRN (16:39)
[2022-08-23 17:15] LABS: HCO3 VBG 20 mmol/L; Oxygen Saturation VBG 80.6 %; PCO2 VBG 32 mmHg (38-50); PO2 VBG 45 mmHg
[2022-08-23] MEDS: ATORVASTATIN 40 MG TAB PO SCH (21:55)
--- NOTE | 2022-08-23 22:40 | Hospitalist Progress Note ---
Date of Service August 23, 2022 Assessment & Plan (1) Light chain myeloma: Plan: Appreciate oncology and radiation oncology input. He is day 4 of 4 of high-dose dexamethasone 40mg daily. Added PPI for GI prophy in light of high-dose steroids. He is receiving XRT to the spine - he previously received 4 of 10 XRT treatments to his back prior to this hospital stay. He received another XRT session on 08/19, 08/22, and today. Fortunately his renal function has improved - Peak Cr 2.4, now 1.4 three days in a row. Calcium - levels very high early this month; now normal during this hospital stay -- s/p IV bisphosphonate therapy in early July. Plan moving forward -- first cycle of CyBorD within the next week per Isamar. Also needs bone marrow biopsy. Repeat CBC, BMP in am. Low platelets - 2nd to MM? (2) Cancer related pain: Plan: Initiated on 25mcg q72h of fentanyl patch in kaia of oxycontin. This, along with XRT and steroids, has allowed considerable pain relief. Cont the above. (3) Acute renal failure: Plan: resolved. Peak Cr 2.4. Now 1.4. BMP am. (4) Elevated troponin level: Plan: No evidence of acute coronary syndrome. No acute EKG change or ischemic symptoms. 2nd to myocardial demand ischemia. (5) Hypertension: Plan: Lisinopril, HCTZ, and amlodipine ALL on hold and BPs controlled without such. Remains on metoprolol BID with adequate control. (6) Type 2 diabetes mellitus: Plan: With hypoglycemia today Adjust lantus + novolog. (7) Pathological compression fracture of spine: Plan: T7 L1 - which is the site of most of his pain Cont palliative XRT Cont fentanyl patch + oxycodone prn Steroids for #1 likely helped as well recent 25-OH vit D level = 77 appreciate ortho consult - no kyphoplasty/surgery recommended. continue TLSO brace. appreciate orthotics & orthopedics consults. (8) Edema: Plan: RLE in light of multiple hospital stays, previous poor mobility, etc -- check dopplers of b/l legs, r/o DVT (9) Obstructive sleep apnea: Plan: needs to get back on CPAP (10) Hypomagnesemia: Plan: mag sulfate 1gm IV x 1 Plan DVT proph - heparin SC care d/w Dr Penn - heme/onc patient is scheduled for bone marrow bx this Monday AM Dr Penn happy with CBC and BMP results at this time home tomorrow? Admission and Anticipated Discharge Date Admission Date: August 18, 2022 Subjective patient had returned from XRT of his back during the visit he was slurring his speech BSG was low at 68 and hypoglycemia protocol followed BSG improved after glucose I checked VBG as he has AZAR and has not had CPAP in several weeks - no hypercapnea patient overall with improved/controlled back pain no other new complaints Review of Systems Review of Systems: gen - no fevers, good appetite, no fatigue cv - no cp, no orthopnea pulm - no cough or dyspnea GI - no abd pain, no nausea/vomiting Physical Exam Physical Exam: gen - slurred speech (Mild) but oriented x 3, NAD neck - no JVD mouth - MMM heart - RRR, s1 s2, no murmur lungs - CTA b/l abd - soft NT ND BS+ ext - right leg is larger than left leg; 1+ edema RLE; trace edema LLE; pulses feet 2+ b/l Results & Data Results & Data ([facility]) Vital Signs (Past 12 Hours) Vital Signs Temp Pulse Pulse Resp BP Pulse Ox O2 Del Method 08/23/22 20:00 36.3 C L 64 18 112/71 95 Room Air 08/23/22 14:08 63 Laboratory Results Laboratory Results - last 24 hr 08/23/22 08/23/22 08/23/22 07:20 07:20 07:20 WBC 5.25 RBC 3.34 L Hgb 10.9 L Hct 30.6 L MCV 91.6 MCH 32.6 MCHC 35.6 RDW Std Deviation 44.0 RDW Coeff of Jose Juan 13.2 Plt Count 101 L MPV 11.0 VBG pH VBG pCO2 VBG pO2 VBG HCO3 VBG O2 Saturation VBG Base Excess Sodium 138 Potassium 4.4 Chloride 110 H Carbon Dioxide 21 Anion Gap 7 BUN 44 H Creatinine 1.49 H Est Cr Clr Drug Dosing 48.9 Est GFR ( Amer) 54.7 Est GFR (Non-Af Amer) 47.2 BUN/Creatinine Ratio 29.5 H Glucose 102 H POC Glucose Calcium 7.9 L Magnesium 1.6 L Vitamin B12 1309 H Folate 17.44 08/23/22 08/23/22 08/23/22 07:59 11:32 16:39 WBC RBC Hgb Hct MCV MCH MCHC RDW Std Deviation RDW Coeff of Jose Juan Plt Count MPV VBG pH VBG pCO2 VBG pO2 VBG HCO3 VBG O2 Saturation VBG Base Excess Sodium Potassium Chloride Carbon Dioxide Anion Gap BUN Creatinine Est Cr Clr Drug Dosing Est GFR ( Amer) Est GFR (Non-Af Amer) BUN/Creatinine Ratio Glucose POC Glucose 102 H 124 H 68 L* Calcium Magnesium Vitamin B12 Folate 08/23/22 08/23/22 08/23/22 16:40 16:49 16:56 WBC RBC Hgb Hct MCV MCH MCHC RDW Std Deviation RDW Coeff of Jose Juan Plt Count MPV VBG pH 7.40 VBG pCO2 32 L VBG pO2 45 VBG HCO3 20 VBG O2 Saturation 80.6 VBG Base Excess -4.0 Sodium Potassium Chloride Carbon Dioxide Anion Gap BUN Creatinine Est Cr Clr Drug Dosing Est GFR ( Amer) Est GFR (Non-Af Amer) BUN/Creatinine Ratio Glucose POC Glucose 73 82 Calcium Magnesium Vitamin B12 Folate 08/23/22 20:29 WBC RBC Hgb Hct MCV MCH MCHC RDW Std Deviation RDW Coeff of Jose Juan Plt Count MPV VBG pH VBG pCO2 VBG pO2 VBG HCO3 VBG O2 Saturation VBG Base Excess Sodium Potassium Chloride Carbon Dioxide Anion Gap BUN Creatinine Est Cr Clr Drug Dosing Est GFR ( Amer) Est GFR (Non-Af Amer) BUN/Creatinine Ratio Glucose POC Glucose 117 H Calcium Magnesium Vitamin B12 Folate PG Care Time/CCT Total # of Minutes Spent Total Time Spent with Patient: Total time spent is greater than 50% in coordination of care (as documented) at patient's floor/unit and/or counseling patient: Coding Level of Care Code 33655 SUB INP/OBS CARE 2/35MIN Diagnoses Light chain myeloma C90.00 Cancer related pain G89.3 Acute renal failure N17.9 Acute renal failure type: unspecified Elevated troponin level R77.8 Hypertension I10 Type 2 diabetes mellitus E11.9 Pathological compression fracture of spine M48.50XA Edema R60.9 Obstructive sleep apnea G47.33 Hypomagnesemia E83.42 (1) Acute renal failure Acute renal failure type: unspecified Qualified Code(s): N17.9 - Acute kidney failure, unspecified
[2022-08-24] MEDS: CHECK fentaNYL PATCH PLACEMENT SCH ×3 (00:12→17:08)
[2022-08-24 07:47] LABS: BUN Creatinine Ratio 25.7 (10-20); Calcium 7.8 mg/dl (8.5-10.1); Creatinine Clr Calc Pharmacy 52.1 ml/min; Est GFR (Non-African American) 50.9 ml/min; Magnesium 1.9 mg/dl (1.7-2.4); Potassium 4.2 mmol/L (3.5-5.1)
[2022-08-24] MEDS: CARBOHYDRATES FOR HYPOGLYCEMIA PO PRN (07:52)
[2022-08-24 07:59] LABS: Basophils # (auto) 0.01 K/uL (0-0.2); Basophils % (auto) 0.2 %; Eosinophils # (auto) 0.02 K/uL (0-0.50); Eosinophils % (auto) 0.5 %; Hematocrit (blood only) 31.9 % (40.1-51.0); Hemoglobin 11.6 g/dl (14.0-18.0); Immature Granulocytes # (auto) 0.12 K/uL (0.00-0.02); Immature Granulocytes % (auto) 2.9 %; Lymphocytes % (auto) 4.9 %; Mean Corpuscular Hemoglobin 32.8 pg (25.0-34.0); Mean Corpuscular Hgb Conc 36.4 g/dL (32.0-36.0); Mean Corpuscular Volume 90.1 fL (80.0-100.0); Mean Platelet Volume 10.8 fL (9.4-12.4); Monocytes # (auto) 0.21 K/uL (0.24-0.82); Monocytes % (auto) 5.1 %; Neutrophils # (auto) 3.56 K/uL (1.4-6.5); Neutrophils % (auto) 86.4 %; Platelet Count 108 K/uL (130-400); RDW Coefficient of Variation 13.4 % (11.5-14.5); RDW Standard Deviation 44.2 fL (36.4-46.3); Red Blood Count 3.54 M/uL (4.63-6.08); White Blood Count 4.12 K/ul (4.8-10.8)
[2022-08-24] MEDS: INSULIN ASPART PER UNIT SC SCH ×4 (08:13→22:59)
[2022-08-24] MEDS: LIDOCAINE 5% 1 PATCH TD SCH (08:16)
[2022-08-24] MEDS: METOPROLOL TARTRATE 50 MG TAB PO SCH ×2 (08:17→22:57)
[2022-08-24] MEDS: GLUCOSAMINE SULFATE 500 MG CAP PO SCH (08:17)
[2022-08-24] MEDS: HEPARIN SOD 5,000 UNIT/0.5 ML VIAL SQ SCH ×2 (08:17→22:58)
[2022-08-24] MEDS: ASPIRIN 81 MG ECTAB PO SCH (08:18)
[2022-08-24] MEDS: SENNA 8.6 MG TAB PO SCH (08:18)
[2022-08-24] MEDS: POLYETHYLENE (MIRALAX) 17 GM PACK PO SCH (08:18)
[2022-08-24] MEDS: PANTOprazole 40 MG TAB PO SCH (08:18)
[2022-08-24] MEDS: CHOLECALCIFEROL 1,000 UNITS 25 MCG TAB PO SCH (08:18)
[2022-08-24] MEDS: LANTUS PER UNIT CHARGE SQ SCH (09:00)
--- NOTE | 2022-08-24 11:34 | Ultrasound Report ---
US venous doppler LE BI CLINICAL HISTORY: myeloma, edema TECHNIQUE: Bilateral lower extremity real-time compression venous ultrasound with Color Doppler imagi ng. Utilizing real-time ultrasonic imaging multiple real time high-resolution ultrasonic images with compression and noncompression maneuvers of the deep venous system in addition to color doppler imagi ng were performed from the common femoral vein through the proximal calf veins. COMPARISON: None available at the time of this dictation. FINDINGS/IMPRESSION: Currently there is normal compressibility of the deep venous system from the common femoral vein thro ugh the proximal calf veins. A left popliteal cyst is again seen. ACT 112: Negative or not required by law. Electronically signed by: Jalil Sargent M.D. 08/24/2022 9:30 AM
--- NOTE | 2022-08-24 13:58 | Hospitalist Progress Note ---
Date of Service August 24, 2022 Assessment & Plan (1) Light chain myeloma: Plan: With augmented pain regimen, ongoing radiation, and high-dose dexamethasone he has had a significant improvement in renal function and in pain management. He does seem to be mobile with a walker. While we have a compelling clinical constellation of findings that strongly point to a light chain myeloma diagnosis, confirming that diagnosis with bone aspiration biopsy and molecular characaterizationshould not only be a prelude to more definitive therapy but may be important in specific prognostication that could impact ultimate short and long-term treatment choices and as well how we frame his expectations for the future. Can be discharged as soon as he is felt to be stable enough with an adequate pain regimen and sufficiently mobile to go home. We are scheduled to see him F rid morning for a bone marrow biopsy in the [facility] offices Plan Anticipate discharge today or tomorrow, we will see him in follow-up in our offices on Monday for bone marrow biopsy Reviewed with hospitalist team Admission and Anticipated Discharge Date Admission Date: August 18, 2022 Subjective Doing much better. He is ambulating well using a walker and his pain is much better controlled. No new complaints Physical Exam Physical Exam: Vital signs and exam are generally stable Results & Data Results & Data ([facility]) Vital Signs (Past 12 Hours) Vital Signs Temp Pulse Pulse Resp BP Pulse Ox O2 Del Method 08/24/22 05:45 63 08/24/22 11:38 36.4 C L 68 16 106/60 95 Room Air 08/24/22 06:40 36.3 C L 70 18 111/61 96 Room Air 08/24/22 03:00 36.2 C L 68 20 117/75 98 Room Air PG Care Time/CCT Total # of Minutes Spent Total Time Spent with Patient: Total time spent is greater than 50% in coordination of care (as documented) at patient's floor/unit and/or counseling patient: Coding Level of Care Code 85475 SUB INP/OBS CARE 08/24MIN Diagnoses Light chain myeloma C90.00
--- NOTE | 2022-08-24 18:44 | Hospitalist Progress Note ---
Date of Service August 24, 2022 Assessment & Plan (1) Light chain myeloma: Plan: Appreciate oncology and radiation oncology input. He is day 3 of 4 of high-dose dexamethasone 40mg daily. Added PPI for GI prophy in light of high-dose steroids. He is receiving XRT to the spine - he previously received 4 of 10 XRT treatments to his back prior to this hospital stay. He received another XRT session on 08/19, and again today. Fortunately his renal function has improved - Peak Cr 2.4, now 1.4 two days in a row. Calcium - levels very high early this month; now normal during this hospital stay -- s/p IV bisphosphonate therapy in early July. Plan moving forward -- first cycle of CyBorD within the next week per Isamar. Repeat CBC, BMP in am. Low platelets today - due to MM? (2) Cancer related pain: Plan: Initiated on 25mcg q72h of fentanyl patch in kaia of oxycontin. This, along with XRT and steroids, has allowed considerable pain relief. Cont the above. (3) Acute renal failure: Plan: resolved. Peak Cr 2.4. Now 1.4. BMP am. (4) Elevated troponin level: Plan: No evidence of acute coronary syndrome. No acute EKG change or ischemic symptoms. 2nd to myocardial demand ischemia. (5) Hypertension: Plan: Lisinopril, HCTZ, and amlodipine ALL on hold and BPs controlled without such. Remains on metoprolol BID with adequate control. (6) Type 2 diabetes mellitus: Plan: Cont lantus BID. Tighten novolog coverage in the presence of high-dose steroids. (7) Pathological compression fracture of spine: Plan: T7 L1 - which is the site of most of his pain Cont palliative XRT Cont fentanyl patch + oxycodone prn Steroids for #1 likely helping as well recent 25-OH vit D level = 77 appreciate ortho consult - no kyphoplasty/surgery recommended. TLSO brace arrived today via orthotics team - appreciate orthotics & orthopedics consults. (8) Edema: Plan: RLE in light of multiple hospital stays, previous poor mobility, etc -- check dopplers of b/l legs, r/o DVT (9) Obstructive sleep apnea: Plan: needs to get back on CPAP (10) Hypomagnesemia: Plan: mag sulfate 1gm IV x 1 Plan DVT proph - heparin SC will discuss his care with Dr Penn if labs tomorrow are stable, pain is controlled, and if Dr Penn feels patient is fit for discharge will attempt to d/c home on 08/23 Admission and Anticipated Discharge Date Admission Date: August 18, 2022 Subjective Patient is ready to be discharged however because the radiation therapy was postponed therefore this afternoon, and the discharge is postponed for tomorrow Review of Systems Review of Systems: Constitutional-no fever or chills ENT-no blurred vision, no double vision, no epistaxis, no sore throat Respiratory-no cough, no wheezing, no shortness of breath Cardiac-no palpitations, no chest pain, no syncope GI-no nausea, vomiting, diarrhea, melena, hematochezia -no urinary retention, no urinary incontinence, no dysuria, no hematuria Musculoskeletal-no joint pain, no muscle tenderness Skin-no bruising, no rashes, no pruritus Neuro-no isolated weakness, no paresthesia, no weakness Psych-no depression, no anxiety Physical Exam Physical Exam: Vital signs and exam are generally stable Constitutional: WD/WN, vitals as above Eyes: PERRL, conjunctivae normal, anicteric sclerae ENMT: external ear and nose normal, oropharynx normal Ears: no hearing impairment Neck: trachea midline, no thyromegaly Respiratory: normal respiratory effort, lungs clear to auscultation Cardiovascular: RRR, no murmur, no edema Extremities: + pedal edema Gastrointestinal (Abdomen): normal bowel sounds, soft, nontender, no hepatosplenomegaly Musculoskeletal: Spine: + lumbar spinal tenderness and + paraspinal tenderness Skin: no rashes, warm and dry + turgor decreased and + ecchymosis Neurologic: PERRL, EOMI, accommodation nl, no face palsy, no dysarthria Psychiatric: A+Ox3, euthymic affect Orientation: alert and oriented x 3 Apperance: appropriately dressed and appropriately groomed Eye Contact: good eye contact Speech: normal rate/rhythm/volume of speech Affect: + anxious affect Mood: + anxious mood Thought Process: + tangential thought process, + perseveration and + concrete thought process Thought Content: + preoccupation Homicidal Thoughts: denies homicidal thoughts Cognition: recent memory grossly intact, remote memory grossly intact, attention grossly intact and language grossly intact Estimated Intelligence: consistent with education level Insight: + fair insight Judgement: good judgement Results & Data Results & Data ([facility]) Vital Signs (Past 12 Hours) Vital Signs Temp Pulse Pulse Resp BP Pulse Ox O2 Del Method 08/24/22 16:07 36.7 C 83 16 126/78 93 Room Air 08/24/22 13:49 72 08/24/22 11:38 36.4 C L 68 16 106/60 95 Room Air PG Care Time/CCT Total # of Minutes Spent Total Time Spent with Patient: Total time spent is greater than 50% in coordination of care (as documented) at patient's floor/unit and/or counseling patient: Coding Level of Care Code 92990 SUB INP/OBS CARE 2/35MIN Diagnoses Light chain myeloma C90.00 Cancer related pain G89.3 Acute renal failure N17.9 Acute renal failure type: unspecified Elevated troponin level R77.8 Hypertension I10 Type 2 diabetes mellitus E11.9 Pathological compression fracture of spine M48.50XA Edema R60.9 Obstructive sleep apnea G47.33 Hypomagnesemia E83.42 (1) Acute renal failure Acute renal failure type: unspecified Qualified Code(s): N17.9 - Acute kidney failure, unspecified
[2022-08-24] MEDS ORDERED: LANTUS PER UNIT CHARGE SQ STA ×2 (22:11→22:49)
[2022-08-24] MEDS: ATORVASTATIN 40 MG TAB PO SCH (22:58)
[2022-08-25] MEDS: CHECK fentaNYL PATCH PLACEMENT SCH ×3 (07:22→16:27)
[2022-08-25] MEDS: PANTOprazole 40 MG TAB PO SCH (08:14)
[2022-08-25] MEDS: CHOLECALCIFEROL 1,000 UNITS 25 MCG TAB PO SCH (08:14)
[2022-08-25] MEDS: METOPROLOL TARTRATE 50 MG TAB PO SCH (08:14)
[2022-08-25] MEDS: DICLOFENAC SODIUM 75 MG TABCR PO PRN (08:14)
[2022-08-25] MEDS: POLYETHYLENE (MIRALAX) 17 GM PACK PO SCH (08:15)
[2022-08-25] MEDS: ASPIRIN 81 MG ECTAB PO SCH (08:15)
[2022-08-25] MEDS: GLUCOSAMINE SULFATE 500 MG CAP PO SCH (08:15)
[2022-08-25] MEDS: SENNA 8.6 MG TAB PO SCH (08:15)
[2022-08-25] MEDS: LIDOCAINE 5% 1 PATCH TD SCH (08:15)
[2022-08-25] MEDS: HEPARIN SOD 5,000 UNIT/0.5 ML VIAL SQ SCH (08:16)
[2022-08-25] MEDS: LANTUS PER UNIT CHARGE SQ SCH (08:22)
[2022-08-25] MEDS: INSULIN ASPART PER UNIT SC SCH ×3 (08:23→17:05)
[2022-08-25] MEDS: fentaNYL 25 MCG/HR TDSY TD SCH (11:58)
--- NOTE | 2022-08-25 19:13 | Discharge Summary ---
Date of Service August 25, 2022 Admission HPI Per Admitting Provider Haroon Adams is a 67-year-old male history of DM2, AZAR, vitamin D deficiency, GERD, gout, hypertension, and recently diagnosed suspected myeloma who is presenting today with worsening back pain. Patient initially presented on 08/05 for worsening back pain after a fall and was noted to have hypercalcemia, renal failure and had CT scans that showed multiple scattered lytic/destructive osseous lesions above consistent with metastatic disease. He was seen by both oncology and radiation oncology and received radiation therapy while admitted. He was discharged 5 days ago on 08/13 and is representing today with back pain. Since discharge he has had more rounds of radiation therapy and has been taking OxyContin as prescribed by his PCP, however it is no longer working. The pain is sharp throughout his back rated 10/10 on admission, now 2/10. He did have 1 fall this afternoon but was able to get himself up off the ground within a minute. Did not hit his head or lose consciousness. On presentation, patient is mildly tachycardic, otherwise vital signs within normal limits and stable. Labs notable for chronic anemia of 12.7, MCV 90.5. Sodium 132, likely falsely low due to glucose of 361. BUN 67, creatinine 2.44, off from baseline 1.11.4 prior to last admission. His calcium was normal at 9.8 today. Troponin 42.5. Cervical through lumbar spine CT scans redemonstrate lytic lesions with pathologic fractures at T7 and eighth rib, redemonstration of L1 compression deformity without retropulsion, lytic lesions at L1 and left iliac wing. Head CT unremarkable. Principal Diagnosis Multiple myeloma Discharge Exam Vital signs and exam are generally stable Constitutional WD/WN, vitals as above Eyes PERRL, conjunctivae normal, anicteric sclerae ENMT external ear and nose normal, oropharynx normal Ears: no hearing impairment Neck trachea midline, no thyromegaly Respiratory normal respiratory effort, lungs clear to auscultation Cardiovascular RRR, no murmur, no edema Extremities: + pedal edema Gastrointestinal (Abdomen) normal bowel sounds, soft, nontender, no hepatosplenomegaly Musculoskeletal Spine: + lumbar spinal tenderness and + paraspinal tenderness Skin no rashes, warm and dry + turgor decreased and + ecchymosis Neurologic PERRL, EOMI, accommodation nl, no face palsy, no dysarthria Psychiatric A+Ox3, euthymic affect Orientation: alert and oriented x 3 Apperance: appropriately dressed and appropriately groomed Eye Contact: good eye contact Speech: normal rate/rhythm/volume of speech Affect: + anxious affect Mood: + anxious mood Thought Process: + tangential thought process, + perseveration and + concrete thought process Thought Content: + preoccupation Homicidal Thoughts: denies homicidal thoughts Cognition: recent memory grossly intact, remote memory grossly intact, attention grossly intact and language grossly intact Estimated Intelligence: consistent with education level Insight: + fair insight Judgement: good judgement Discharge Data Allergies Allergy/AdvReac Type Severity Reaction Status Date / Time amoxicillin [From Augmentin] Allergy Intermediate SWELLING Verified 08/16/22 15:17 AROUND EYES clavulanic acid Allergy Intermediate SWELLING Verified 08/16/22 15:17 AROUND THE EYES Penicillins Allergy Intermediate AUGMENTIN Verified 08/16/22 15:17 - SWELLING AROUND THE EYES diflunisal AdvReac Intermediate VOMITING Verified 08/16/22 15:17 valsartan [From Diovan] AdvReac Intermediate Vomiting Verified 08/16/22 15:17 Consultations 08/18/22 20:01 ED Decision to Admit Stat 08/18/22 23:09 Consult Oncology Routine 08/19/22 08:22 Consult Radiation Oncology Routine 08/19/22 13:50 Consult Palliative Care Routine 08/20/22 12:28 Consult Orthopedic Surgery Routine Ordered Studies 08/18/22 17:26 CT cervical spine wo con Stat CT head/brain wo con Stat CT lumbar spine wo con Stat CT thoracic spine wo con Stat 08/24/22 05:02 US venous doppler LE Routine Hospital Course (1) Light chain myeloma: Appreciate oncology and radiation oncology input. He is day 3 of 4 of high-dose dexamethasone 40mg daily. Added PPI for GI prophy in light of high-dose steroids. He is receiving XRT to the spine - he previously received 4 of 10 XRT treatments to his back prior to this hospital stay. He received another XRT session on 08/19, and again today. Fortunately his renal function has improved - Peak Cr 2.4, now 1.4 two days in a row. Calcium - levels very high early this month; now normal during this hospital stay -- s/p IV bisphosphonate therapy in early July. Plan moving forward -- first cycle of CyBorD within the next week per Isamar. (2) Cancer related pain: Initiated on 25mcg q72h of fentanyl patch in kaia of oxycontin. This, along with XRT and steroids, has allowed considerable pain relief. Cont the above. (3) Acute renal failure: resolved. Peak Cr 2.4. Now 1.4. BMP am. (4) Elevated troponin level: No evidence of acute coronary syndrome. No acute EKG change or ischemic symptoms. 2nd to myocardial demand ischemia. (5) Hypertension: Lisinopril, HCTZ, and amlodipine ALL on hold and BPs controlled without such. Remains on metoprolol BID with adequate control. (6) Type 2 diabetes mellitus: Cont lantus BID. Tighten novolog coverage in the presence of high-dose steroids. (7) Pathological compression fracture of spine: T7 L1 - which is the site of most of his pain Cont palliative XRT Cont fentanyl patch + oxycodone prn Steroids for #1 likely helping as well recent 25-OH vit D level = 77 appreciate ortho consult - no kyphoplasty/surgery recommended. TLSO brace arrived today via orthotics team - appreciate orthotics & orthopedics consults. (8) Edema: RLE in light of multiple hospital stays, previous poor mobility, etc -- check dopplers of b/l legs, r/o DVT (9) Obstructive sleep apnea: needs to get back on CPAP (10) Hypomagnesemia: mag sulfate 1gm IV x 1 Plan DVT proph - heparin SC will discuss his care with Dr Penn if labs tomorrow are stable, pain is controlled, and if Dr Penn feels patient is fit for discharge will attempt to d/c home on 08/23 Total Time Total Time Spent Total Time Spent (In Minutes): 45 min Discharge Plan Discharge Items Patient Disposition: Home - Home Health Services Reason For Visit: back pain, known lytic lesions Discharge Diagnosis: Possible Multiple Myeloma , finalized diagnosis is with Condition on Discharge: Good Activity: Resume your previous activity Lifting: Gradually increase as tolerated Bathing: No limitations Sexual Activity: When tolerated Driving/Machine Use: No limitations Non-emergency contact: Primary Care Provider Call non-emergency contact if: you have any medication questions Follow-up/Referrals: Maria Ines Damon DO [Primary Care Provider] - Tremaine Jesus MD [Physician] - 08/26/22 8:00 am Diet: Regular Addtl Attending Provider Instructions: Please follow with Dr Penaloza for Bone Marrow Biopsy Addtl Elder Counselor Provider Instructions: please check your blood pressure on daily basis , your blood pressure can be affecter by your treatment for cancer , if your blood pressure is high or low contact your primary care doctor or 911. Please check your blood sugar before meal and bed time , your cancer treatment can affect your blood sugar , if your blood sugar is high or low contact your primary care doctor or 911 immediately Please don't use Fentanyl patch if you are not in severe pain Pending Studies at Discharge: No Stand-Alone Forms: My [employer], Smoking Cessation Medications and DC Order Prescriptions: New polyethylene glycol 3350 [Miralax] 17 gram Powder In Packet 17 g PO DAILY Qty: 14 0RF pantoprazole 40 mg Tablet,Delayed Release (Dr/Ec) 40 mg PO QAM Qty: 60 0RF fentanyl 25 mcg/hr Patch 72 Hour 25 mcg transdermal Q3D Qty: 10 0RF Continued (DME) pen needle, diabetic [BD Ultra-Fine Augustina Pen Needle] 32 gauge x 5/32" needle See Rx Instructions .ROUTE .MEDSUPPLY Qty: 100 3RF Rx Instructions: Use to inject once daily metoprolol tartrate 50 mg tablet 50 mg PO BID Qty: 180 3RF Tresiba FlexTouch U-100 100 unit/mL (3 mL) insulin pen 33 unit SQ HS MDD 33 UNITS/DAILY Qty: 2 3RF Rx Instructions: Up to 33 units a day semaglutide 2 mg/dose (8 mg/3 mL) pen injector 2 mg subcut Q7D Qty: 3 5RF Rx Instructions: TAKES MONDAY EVENINGS (DME) Accu-Chek Josephine Plus test strp Strip See Rx Instructions .ROUTE .MEDSUPPLY Qty: 100 3RF Rx Instructions: checking TID multivitamin [Multiple Vitamins] Tablet 1 tab PO DAILY aspirin 81 mg tablet,delayed release (DR/EC) 81 mg PO DAILY atorvastatin [Lipitor] 40 mg tablet 40 mg PO HS cholecalciferol (vitamin D3) 25 mcg (1,000 unit) tablet 1,000 units PO DAILY glucosamine HCl 500 mg tablet 500 mg PO DAILY metformin 500 mg tablet See Rx Instructions .ROUTE .COMPLEX Rx Instructions: 500 mg orally; TAKES 500 MG QAM, THEN 1,000 MG QPM. diclofenac sodium 75 mg tablet,delayed release (DR/EC) 75 mg PO BID PRN (Reason: Pain) oxycodone 5 mg tablet 5 mg PO Q6H Qty: 12 0RF lidocaine 5 % adhesive patch,medicated 1 patch topical DAILY Qty: 15 0RF Rx Instructions: "PHARMACY DID NOT GET IN YET" PER PT. leave on most painful area for up to 12 hrs Discontinued lisinopril 20 mg tablet 20 mg PO DAILY hydrochlorothiazide 12.5 mg capsule 12.5 mg PO DAILY amlodipine 5 mg Tablet 5 mg PO QAM Qty: 30 0RF Discharge Orders: Discharge Order (Routine); Ordered 08/25/22 Ordered By: Zeus Tristan Admission Data Admit Date/Time: 08/18/22 20:39 Attending Provider: Zeus Tristan Admit Provider: Kunal Dorman Primary Care Provider: Maria Ines Damon Other Providers: Tremaine Jesus ; Hugo Santana ; Radha Smith ; Kunal Dorman ; Anson Duncan Other Interventions: Discharge Summary Assessment (RN) Last Done: 08/25/22 15:05 Coding Level of Care Code HOSP INP/OBS DISCH >30 MIN Diagnoses Light chain myeloma C90.00 Cancer related pain G89.3 Acute renal failure N17.9 Acute renal failure type: unspecified Elevated troponin level R77.8 Hypertension I10 Type 2 diabetes mellitus E11.9 Pathological compression fracture of spine M48.50XA Edema R60.9 Obstructive sleep apnea G47.33 Hypomagnesemia E83.42
== END 2022-08-25 17:06 | disposition home or self-care (01) | DRG 543 ==
LOC: ED 16:43 → EDINP 20:39 → SUATTDRO 20:39 → 2W 23:08

== ENCOUNTER 2023-08-21 14:37 | Inpatient (IN) ==
--- NOTE | 2023-08-21 14:43 | ED Triage Note ---
Date of Service August 21, 2023 Provider in Triage Author: Cm Whitfield History of Present Illness This patient was briefly evaluated while in triage. An abbreviated physical exam was performed. This patient is a 68-year-old Male who presents to the ED for evaluation of hyperglycemia of 700. He has been sick for 1.5 months. Patient not answering questions appropriately in triage. Sent to A1. Physical Exam CONSTITUTIONAL: Ill appearing. SKIN: pink, warm, dry CARDIAC: tachycardic rate RESPIRATORY: in no respiratory distress Initial orders for labs and / or imaging were placed and patient was placed in the waiting area until a bed is available. Please see further documentation for the full ED course. MDM / Impression Impression Impression: DKA (diabetic ketoacidosis), AMS (altered mental status), Elevated troponin I level, Acute hyponatremia, YOSI (acute kidney injury), Hypothermia Impression: DKA (diabetic ketoacidosis) Qualifiers: Diabetes mellitus type: other specified (including KEENA) Diabetes mellitus complication detail: without coma Qualified Code(s): E13.10 - Other specified diabetes mellitus with ketoacidosis without coma AMS (altered mental status) Qualifiers: Altered mental status type: unspecified Qualified Code(s): R41.82 - Altered mental status, unspecified Hypothermia Qualifiers: Encounter type: initial encounter Qualified Code(s): T68.XXXA - Hypothermia, initial encounter
--- NOTE | 2023-08-21 14:58 | Emergency Department Note ---
Impression & Plan DKA (diabetic ketoacidosis), AMS (altered mental status), Elevated troponin I level, Acute hyponatremia, YOSI (acute kidney injury), Hypothermia ED Provider Note NAME: LENNY CHRISTINE AGE: 68 SEX: M : 1955 ARRIVES VIA: Walk-In INFORMANT: Patient, the patient's friend ED PROVIDER(S): Jared Mcgee DO CHIEF COMPLAINT: Weakness HPI: The patient is a 68-year-old male who presented to the emergency department with a friend. The patient has a history of DVT as well as pulmonary embolism. The patient also has a history of diabetes. He has been having trouble with weakness. He has not been able to make it to his medical appointments. He went to the [facility] today and was sent to the emergency department for further evaluation. There is been no reported trauma. There is been no reported vomiting. The patient was brought directly back from triage because of tachycardia and hypotension. ROS: See above HPI for pertinent positives & negatives. A total of 10 systems reviewed and were otherwise negative. PAST MEDICAL HISTORY: See Below PAST SURGICAL HISTORY: See Below FAMILY HISTORY: See Below SOCIAL HISTORY: See Below HOME MEDICATIONS: See Below ALLERGIES: See Below VITALS: See Below PHYSICAL EXAMINATION: GENERAL: The patient is listless and slow to respond to questioning. EYES: The conjunctivae are clear. The pupils are round and reactive. EARS, NOSE, MOUTH AND THROAT: The nose is without any evidence of any deformity. Mucous membranes are dry. NECK: The neck is nontender and supple. RESPIRATORY: Normal respiratory effort is noted there is no evidence of wheezing rhonchi or rales CARDIOVASCULAR: Regular rate and rhythm noted there no murmurs rubs or gallops normal S1 normal S2. GASTROINTESTINAL: The abdomen is soft and nondistended. There is no specific guarding or rigidity. SKIN: Skin was pale and dry. There is pedal edema bilaterally left greater than right. NEUROLOGIC: Patient is awake and oriented x3. Strength was symmetric but diminished. MEDICAL DECISION MAKING: The patient is a 68-year-old male who presented to the emergency department from the [facility] for an evaluation of confusion and weakness. The patient was hypotensive. He was tachycardic initially when he was in triage however I do feel the patient's pulse was likely accounting twice as when he returned to the main emergency department he was not as tachycardic as initially felt in triage. He was hypotensive. His blood sugar was found to very high. There was some report of falling but this is not very clear. The patient has no neck pain on physical exam. He had mild abdominal distention and mild tenderness but certainly no guarding or rigidity. I discussed patient's laboratory and radiographic studies with him. He was placed on a heating blanket. He was treated with multiple IV fluid boluses as well as IV insulin. He was treated with empiric IV antibiotics for possible sepsis. [facility] agreed to evaluate the patient in the emergency department for further management and disposition. Triage Nursing notes reviewed. Prior medical records reviewed Vital Signs: reviewed and remarkable for hypotension. The patient was also noted to be hypothermic. Differential diagnosis: Infection, dehydration, metabolic abnormality, hypo/hyperglycemia, electrolyte disturbance, anemia, hypoxia, cardiac sources, intracerebral event, toxicologic, neurologic, as well as other pathologies. ER treatment provided: See below Diagnostics interpreted by me: ECG: EKG was obtained in the emergency department. My interpretation is sinus rhythm at 62 bpm. There is no ectopy. There is no acute ST segment abnormalities noted. This was compared to a tracing from August 30, 2022. No changes were noted. Cardiac Monitoring: An order was placed for continuous cardiac monitoring. The monitor shows a rate of 88 bpm with sinus rhythm. Laboratory studies: As stated above and show below. Imaging studies: See below. Radiographic imaging was reviewed by myself Dr. Peguero [facility]. He will evaluate the patient in the emergency department. ED COURSE: Procedures: none Critical Care: I have personally spent greater than 55 minutes of critical care time in the direct management of this patient. This includes bedside care, interpretation of diagnostic studies, and testing, discussion with consultants, patient, and family members, and other required patient management activities. This 55 minutes is in excess of all separately billable procedures. Past Med/Surg History Medical History Edema Weakness generalized Cancer related pain Advanced care planning/counseling discussion Palliative care encounter Light chain myeloma Metabolic encephalopathy Elevated troponin level Hypercalcemia Acute renal failure Acute back pain Fatigue GE reflux Hypertension Gout Vitamin D deficiency Obstructive sleep apnea Dyslipidemia Type 2 diabetes mellitus Tendon laceration Laceration of multiple sites of left hand and fingers Chest pain Bronchitis Surgical History History of surgery on arm Family History Father Alzheimer disease Dyslipidemia Mother Diabetes Coronary heart disease Other Family history non-contributory Social History Smoking Status: Never smoker Second Hand Exposure: No; Do You Dip or Chew Tobacco: No; Hx Alcohol Use: No Hx Substance Use: No Preferred Language: Thai Communication Ability: Effective 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 Beliefs That Will Affect Care: None marital status: Single marital status details: no children Current Living Situation: Parent Current Living Situation Comment: Takes care of mother current occupational status: retired Feels Safe at Home: Yes Assistive Devices: Crutches Allergies Allergies Allergy/AdvReac Type Severity Reaction Status Date / Time amoxicillin [From Augmentin] Allergy Intermediate SWELLING Verified 08/21/23 16:03 AROUND EYES clavulanic acid Allergy Intermediate SWELLING Verified 08/21/23 16:03 AROUND THE EYES Penicillins Allergy Intermediate AUGMENTIN Verified 08/21/23 16:03 - SWELLING AROUND THE EYES diflunisal AdvReac Intermediate VOMITING Verified 08/21/23 16:03 valsartan [From Diovan] AdvReac Intermediate Vomiting Verified 08/21/23 16:03 Home Meds Home Medications Medication Instructions Recorded Confirmed atorvastatin 40 mg tablet (Lipitor) 40 mg PO HS 08/09/19 08/21/23 cholecalciferol (vitamin D3) 25 1,000 units PO DAILY 01/27/20 08/21/23 mcg (1,000 unit) tablet multivitamin (Multiple Vitamins 1 tab PO DAILY 01/27/20 08/21/23 tablet) diclofenac sodium 75 mg 75 mg PO BID PRN Pain 08/05/22 08/21/23 tablet,delayed release polyethylene glycol 3350 17 gram 17 g PO DAILY PRN Constipation 11/22/22 08/21/23 oral powder packet (Miralax) acyclovir 400 mg tablet 400 mg PO BID 08/21/23 08/21/23 dexamethasone 4 mg tablet 4 mg PO DAILY 08/21/23 08/21/23 hydrochlorothiazide 25 mg tablet 25 mg PO DAILY 08/21/23 08/21/23 lisinopril 10 mg tablet 10 mg PO DAILY 08/21/23 08/21/23 metformin 500 mg tablet 1,000 mg PO QPM 08/21/23 08/21/23 metformin 500 mg tablet 500 mg PO QAM 08/21/23 08/21/23 Previous Rx's Medication Instructions Recorded blood sugar diagnostic (Accu-Chek #100 ea 05/23/22 Josephine Plus test strips) pantoprazole 40 mg tablet,delayed 40 mg PO QAM #60 tabs 08/24/22 release metoprolol tartrate 50 mg tablet 50 mg PO BID #180 tabs 10/31/22 pen needle, diabetic 32 gauge x #100 ea 11/14/22" (BD Ultra-Fine Augustina Pen Needle) spironolactone 25 1 tab PO DAILY #90 tabs 04/04/23 mg-hydrochlorothiazide 25 mg tablet Results & Data (ED) Vital Signs Vital Signs - 24 hr 08/21/23 14:39 08/21/23 15:07 08/21/23 15:21 Temperature Temperature Source Pulse Rate 229 H 65 Pulse Rate [Apical] 65 Respiratory Rate 25 H 20 Respiratory Effort / Characteristics Non-Labored Respiratory Depth Normal Blood Pressure 80/50 L Blood Pressure [Right Arm] 100/63 Blood Pressure Mean 60 Blood Pressure Mean [Right Arm] 75 Pulse Oximetry 98 Oxygen Delivery Method Room Air Sepsis Recent Fever Within 48 Hours No Sepsis New/Unexplained Change in Mental Status N/A Sepsis Action Taken by Nursing Physician Notified 08/21/23 15:21 08/21/23 15:41 08/21/23 16:10 Temperature 35.6 C L Temperature Source Rectal Pulse Rate Pulse Rate [Apical] 84 90 Respiratory Rate 20 20 Respiratory Effort / Characteristics Non-Labored Non-Labored Respiratory Depth Normal Normal Blood Pressure Blood Pressure [Right Arm] 111/78 114/52 L Blood Pressure Mean Blood Pressure Mean [Right Arm] 89 72 Pulse Oximetry 98 98 100 Oxygen Delivery Method Room Air Room Air Room Air Sepsis Recent Fever Within 48 Hours Sepsis New/Unexplained Change in Mental Status Sepsis Action Taken by Nursing 08/21/23 16:20 Temperature Temperature Source Pulse Rate Pulse Rate [Apical] 88 Respiratory Rate 20 Respiratory Effort / Characteristics Non-Labored Respiratory Depth Normal Blood Pressure Blood Pressure [Right Arm] 99/67 L Blood Pressure Mean Blood Pressure Mean [Right Arm] 77 Pulse Oximetry 100 Oxygen Delivery Method Room Air Sepsis Recent Fever Within 48 Hours Sepsis New/Unexplained Change in Mental Status Sepsis Action Taken by Usp Medications Current Medication List: was personally reviewed by me Laboratory Data Attestation: I reviewed the patient's lab results. 08/21/23 15:12 08/21/23 15:12 Lab Results 08/21/23 08/21/23 08/21/23 Range/Units 14:54 15:12 15:14 WBC 7.68 (4.8-10.8) K/ul RBC 4.52 L (4.70-6.10) M/uL Hgb 14.6 (14.0-18.0) g/dl POC Hgb 14.6 (14.0-18.0) g/dl Hct 40.0 L (42.0-52.0) % POC Hct 43 (42-52) % MCV 88.5 (80.0-100.0) fL MCH 32.3 (25.0-34.0) pg MCHC 36.5 H (32.0-36.0) g/dL RDW Std Deviation 44.8 (36.4-46.3) fL RDW Coeff of Jose Juan 13.8 (11.5-14.5) % Plt Count 175 (130-400) K/uL MPV 11.3 (9.4-12.4) fL Immature Gran % (Auto) 1.6 % Neut % (Auto) 81.3 % Lymph % (Auto) 10.3 % [place] % (Auto) 6.4 % Eos % (Auto) 0.0 % Baso % (Auto) 0.4 % Neut # (Auto) 6.25 (1.40-6.50) K/uL Lymph # (Auto) 0.79 L (1.20-3.40) K/uL [place] # (Auto) 0.49 (0.11-0.59) K/uL Eos # (Auto) 0.00 (0.00-0.50) K/uL Baso # (Auto) 0.03 (0.00-0.20) K/uL Immature Gran # (Auto) 0.12 (0.01-0.20) K/uL PT 10.3 (9.0-12.0) Seconds INR 0.9 (0.9-1.1) APTT 23 (21-31) Seconds PTT Ratio 0.8 VBG pH 7.18 L (7.36-7.41) VBG pCO2 38 (38-50) mmHg VBG pO2 24 mmHg VBG HCO3 14 mmol/L VBG O2 Saturation < 60.0 % VBG Base Excess -13.4 mEq/L POC Sodium 117 L* (135-144) mmol/L Sodium 117 L* (136-145) mmol/L POC Potassium 5.5 H (3.3-5.0) mmol/L Potassium 5.5 H (3.5-5.1) mmol/L POC Chloride 91 L (101-112) mmol/L Chloride 85 L (98-107) mmol/L Carbon Dioxide 13 L (21-32) mmol/L POC Total CO2 14 L (24-31) mmol/L Anion Gap 19 H (3-11) POC Anion Gap 18.0 (16-25) mmol/L POC BUN 86 H (7-18) mg/dl BUN 93 H (6-23) mg/dl Creatinine 2.60 H (0.6-1.4) mg/dl POC Creatinine 2.7 H (0.6-1.3) mg/dl Est Cr Clr Drug Dosing 26.4 ml/min Est GFR ( Amer) 27.7 ml/min Est GFR (Non-Af Amer) 23.9 ml/min BUN/Creatinine Ratio 35.8 H (10-20) Glucose 723 H* (70-99(Fasting)) mg/dl POC Glucose > 600 H* (70-99) mg/dl POC Glucose (other) 652 H* (70-99) mg/dl Lactate 3.2 H* (0.4-2.0) mmol/L Calcium 8.6 (8.6-10.3) mg/dl POC Ioniz Calcium Jah 1.07 L (1.12-1.32) mmol/l Magnesium 2.4 (1.7-2.4) mg/dl Total Bilirubin 1.1 H (0.2-1.0) mg/dl Direct Bilirubin 0.2 (0-0.2) mg/dl AST 27 (13-39) U/L ALT 44 (7-52) U/L Alkaline Phosphatase 172 H (34-104) U/L Troponin I High Sens 24.8 H (0-20) pg/ml Total Protein 6.4 (6.0-8.3) gm/dl Albumin 3.8 (3.4-5.0) gm/dl Procalcitonin 0.41 (0-0.5) ng/ml Urine Color Urine Appearance (Clear) Urine pH (4.5-7.5) Ur Specific [place] (1.000-1.030) Urine Protein (Negative) Urine Glucose (UA) (Negative) Urine Ketones (Negative) Urine Blood (Negative) Urine Nitrite (Negative) Urine Bilirubin (Negative) Urine Urobilinogen (Negative) Ur Leukocyte Esterase (Negative) Adenovirus (PCR) (NotDetected) B. pertussis DNA (PCR) (NotDetected) B.parapertussis DNA PCR (NotDetected) C. pneumoniae DNA (PCR) (NotDetected) Coronavirus OC43 (PCR) (NotDetected) Coronavirus HKU1 (PCR) (NotDetected) Coronavirus 229E (PCR) (NotDetected) SARS-CoV-2 (PCR) (NotDetected) Coronavirus NL63 (PCR) (NotDetected) Human Metapneumovir PCR (NotDetected) Influenza Type A (PCR) (NotDetected) Influenza Type B (PCR) (NotDetected) M. pneumoniae (PCR) (NotDetected) Parainfluenza 1 (PCR) (NotDetected) Parainfluenza 2 (PCR) (NotDetected) Parainfluenza 3 (PCR) (NotDetected) Parainfluenza 4 (PCR) (NotDetected) RSV (PCR) (NotDetected) Entero/Rhino (PCR) (NotDetected) 08/21/23 08/21/23 08/21/23 Range/Units 15:17 15:39 16:09 WBC (4.8-10.8) K/ul RBC (4.70-6.10) M/uL Hgb (14.0-18.0) g/dl POC Hgb (14.0-18.0) g/dl Hct (42.0-52.0) % POC Hct (42-52) % MCV (80.0-100.0) fL MCH (25.0-34.0) pg MCHC (32.0-36.0) g/dL RDW Std Deviation (36.4-46.3) fL RDW Coeff of Jose Juan (11.5-14.5) % Plt Count (130-400) K/uL MPV (9.4-12.4) fL Immature Gran % (Auto) % Neut % (Auto) % Lymph % (Auto) % [place] % (Auto) % Eos % (Auto) % Baso % (Auto) % Neut # (Auto) (1.40-6.50) K/uL Lymph # (Auto) (1.20-3.40) K/uL [place] # (Auto) (0.11-0.59) K/uL Eos # (Auto) (0.00-0.50) K/uL Baso # (Auto) (0.00-0.20) K/uL Immature Gran # (Auto) (0.01-0.20) K/uL PT (9.0-12.0) Seconds INR (0.9-1.1) APTT (21-31) Seconds PTT Ratio VBG pH (7.36-7.41) VBG pCO2 (38-50) mmHg VBG pO2 mmHg VBG HCO3 mmol/L VBG O2 Saturation % VBG Base Excess mEq/L POC Sodium (135-144) mmol/L Sodium (136-145) mmol/L POC Potassium (3.3-5.0) mmol/L Potassium (3.5-5.1) mmol/L POC Chloride (101-112) mmol/L Chloride (98-107) mmol/L Carbon Dioxide (21-32) mmol/L POC Total CO2 (24-31) mmol/L Anion Gap (3-11) POC Anion Gap (16-25) mmol/L POC BUN (7-18) mg/dl BUN (6-23) mg/dl Creatinine (0.6-1.4) mg/dl POC Creatinine (0.6-1.3) mg/dl Est Cr Clr Drug Dosing ml/min Est GFR ( Amer) ml/min Est GFR (Non-Af Amer) ml/min BUN/Creatinine Ratio (10-20) Glucose (70-99(Fasting)) mg/dl POC Glucose > 600 H* (70-99) mg/dl POC Glucose (other) (70-99) mg/dl Lactate (0.4-2.0) mmol/L Calcium (8.6-10.3) mg/dl POC Ioniz Calcium Jah (1.12-1.32) mmol/l Magnesium (1.7-2.4) mg/dl Total Bilirubin (0.2-1.0) mg/dl Direct Bilirubin (0-0.2) mg/dl AST (13-39) U/L ALT (7-52) U/L Alkaline Phosphatase (34-104) U/L Troponin I High Sens (0-20) pg/ml Total Protein (6.0-8.3) gm/dl Albumin (3.4-5.0) gm/dl Procalcitonin (0-0.5) ng/ml Urine Color Yellow Urine Appearance Clear (Clear) Urine pH 5.0 (4.5-7.5) Ur Specific [place] 1.019 (1.000-1.030) Urine Protein Negative (Negative) Urine Glucose (UA) 3+ H (Negative) Urine Ketones Trace H (Negative) Urine Blood Negative (Negative) Urine Nitrite Negative (Negative) Urine Bilirubin Negative (Negative) Urine Urobilinogen Negative (Negative) Ur Leukocyte Esterase Negative (Negative) Adenovirus (PCR) Not Detected (NotDetected) B. pertussis DNA (PCR) Not Detected (NotDetected) B.parapertussis DNA PCR Not Detected (NotDetected) C. pneumoniae DNA (PCR) Not Detected (NotDetected) Coronavirus OC43 (PCR) Not Detected (NotDetected) Coronavirus HKU1 (PCR) Not Detected (NotDetected) Coronavirus 229E (PCR) Not Detected (NotDetected) SARS-CoV-2 (PCR) Not Detected (NotDetected) Coronavirus NL63 (PCR) Not Detected (NotDetected) Human Metapneumovir PCR Not Detected (NotDetected) Influenza Type A (PCR) Not Detected (NotDetected) Influenza Type B (PCR) Not Detected (NotDetected) M. pneumoniae (PCR) Not Detected (NotDetected) Parainfluenza 1 (PCR) Not Detected (NotDetected) Parainfluenza 2 (PCR) Not Detected (NotDetected) Parainfluenza 3 (PCR) Not Detected (NotDetected) Parainfluenza 4 (PCR) Not Detected (NotDetected) RSV (PCR) Not Detected (NotDetected) Entero/Rhino (PCR) Not Detected (NotDetected) Administered Medications Insulin Human Regular 250 (units/ Sodium Chloride) 250 mls @ 7 mls/hr IV .Q24H TOMA; Protocol Stop: 09/20/23 15:29 Last Admin: 08/21/23 16:13 Dose: 7 units/hr, 7 mls/hr Documented By: AP Co-signed By: ANDREA Discontinued Medications Sodium Chloride (Nss) 1,000 mls @ 999 mls/hr IV .Q1H1M ONE Stop: 08/21/23 16:01 Last Admin: 08/21/23 15:20 Dose: 999 mls/hr Documented By: AP Sodium Chloride (Nss) 1,000 mls @ 999 mls/hr IV .Q1H1M ONE Stop: 08/21/23 16:20 Last Admin: 08/21/23 15:28 Dose: 999 mls/hr Documented By: AP Cefepime HCl (Maxipime) 2,000 mg in 20 mls @ 5 mls/min IV NOW STA; Protocol Stop: 08/21/23 16:15 Last Admin: 08/21/23 16:20 Dose: 5 mls/min Documented By: AP Miscellaneous (Stat Iv Infusion Titration Per Protocol) 1 each N/A NOW STA Stop: 08/21/23 15:22 Last Admin: 08/21/23 16:13 Dose: 1 each Documented By: AP Imaging Data Attestation: I personally reviewed and interpreted this imaging study as follows: My Impression: 1 view chest x-ray was obtained in the emergency department. My interpretation is no free air or definite infiltrate, final report below. CT the brain was obtained in the emergency department. My interpretation is no intracranial hemorrhage or mass effect, final report below. Radiologist's Impression: Chest X-Ray 08/21/23 14:49 XR chest 1V portable HISTORY: 68 years-old Male Sepsis acute sepsis COMPARISON: PET/CT 04/13/2023 TECHNIQUE: AP view of the chest FINDINGS: Cardiomediastinal and hilar silhouettes are within normal limits. Sclerosis with chronic fracture deformity of the medial right clavicle and posterior lateral left seventh rib redemonstrated. Atherosclerosis of the aorta. Mild right hemidiaphragmatic elevation. Additional chronic right rib deformities again noted. No new destructive bone lesions. IMPRESSION: 1. No acute processes of the chest. 2. Chronic findings as above. ACT 112: Negative or not required by law. The above report was generated using voice recognition software. It may contain grammatical, syntax or spelling errors. Electronically signed by: Дмитрий Wooten M.D. 08/21/2023 3:[address] 08/21/23 15:01 CT OF THE HEAD WITHOUT CONTRAST CLINICAL HISTORY: Altered mental status. COMPARISON STUDY: MRI of the brain December 09, 2015. Head CT August 18, 2022. CT DOSE: 1361.92 mGy.cm TECHNIQUE: Helical axial images of the head were obtained without IV contrast. Automated exposure control was utilized for the study. A dose lowering technique was utilized adhering to the principles of ALARA. FINDINGS: No acute intracranial hemorrhage, midline shift or mass effect is present. The ventricular system is unremarkable. The basal cisterns are patent. No extra-axial collections are present. There are no findings to suggest acute dural sinus thrombosis or acute territorial infarct. No significant calvarial abnormalities are present. Visualized portions of the sinuses and mastoid air cells are clear. IMPRESSION: No acute intracranial findings. ACT 112: Negative or not required by law. Electronically signed by: Hai Lisa M.D. 08/21/2023 4:[address] 08/21/23 15:16 CT chest diagnostic wo con CLINICAL HISTORY: low BP TECHNIQUE: Multidetector row helical CT of the chest was performed. Coronal and sagittal reformations were obtained. Automated dose lowering techniques and/or adjustment according to patient size were utilized for this exam. Comparison: Comparison is made to CT chest 02/09/2023 FINDINGS: Lungs and pleura: Bronchiectasis and scarring are seen in the posterior medial lower lobes, similar to prior exam. Heart and pericardium: Heart size is normal. No pericardial effusion. Vessels: Moderate atherosclerotic changes in the aorta and coronary arteries. Mediastinum and lara: Unremarkable. Chest wall and lower neck: Unremarkable. Abdomen: For findings below the diaphragm, please refer to CT of the abdomen dated the same. Bones: Degenerative changes in the thoracic spine. Multiple expansile lytic lesions are seen in the ribs, with some pathologic fractures. Additional lytic lesions are seen in the spine. IMPRESSION: 1. No acute abnormalities. Redemonstration of lytic lesions and pathologic fractures compatible with history of multiple myeloma. 2. Redemonstration of scarring in the posterior medial lung. ACT 112: Negative or not required by law. Electronically signed by: Jalil Sargent M.D. 08/21/2023 4:17 PM Discharge Plan Visit Data Chief Complaint: Illness Stated Complaint: BS IS 700 ED Provider: Jared Mcgee Discharge Problem: DKA (diabetic ketoacidosis), AMS (altered mental status), Elevated troponin I level, Acute hyponatremia, YOSI (acute kidney injury), Hypothermia Patient Disposition: Being Evaluated by Hospitalist Forms Stand Alone Forms: [facility] [employer] Prescriptions Prescriptions: No Action polyethylene glycol 3350 [Miralax] 17 gram powder in packet 17 g PO DAILY PRN (Reason: Constipation) (DME) Accu-Chek Josephine Plus test strp Strip See Rx Instructions .ROUTE .MEDSUPPLY Qty: 100 3RF Rx Instructions: checking TID multivitamin [Multiple Vitamins] Tablet 1 tab PO DAILY (DME) pen needle, diabetic [BD Ultra-Fine Augustina Pen Needle] 32 gauge x 5/32" needle See Rx Instructions .ROUTE .MEDSUPPLY Qty: 100 3RF Rx Instructions: Use to inject once daily metoprolol tartrate 50 mg tablet 50 mg PO BID Qty: 180 3RF spironolacton-hydrochlorothiaz 25-25 mg tablet 1 tab PO DAILY Qty: 90 3RF atorvastatin [Lipitor] 40 mg tablet 40 mg PO HS cholecalciferol (vitamin D3) 25 mcg (1,000 unit) tablet 1,000 units PO DAILY diclofenac sodium 75 mg tablet,delayed release (DR/EC) 75 mg PO BID PRN (Reason: Pain) pantoprazole 40 mg Tablet,Delayed Release (Dr/Ec) 40 mg PO QAM Qty: 60 0RF metformin 500 mg tablet 500 mg PO QAM metformin 500 mg tablet 1,000 mg PO QPM acyclovir 400 mg tablet 400 mg PO BID dexamethasone 4 mg tablet 4 mg PO DAILY lisinopril 10 mg tablet 10 mg PO DAILY Rx Instructions: Per dr 1st hydrochlorothiazide 25 mg tablet 25 mg PO DAILY Referrals Referrals: Maria Ines Damon DO [Primary Care Provider] - Discharge Problem: DKA (diabetic ketoacidosis) Qualifiers: Diabetes mellitus type: other specified (including KEENA) Diabetes mellitus complication detail: without coma Qualified Code(s): E13.10 - Other specified diabetes mellitus with ketoacidosis without coma AMS (altered mental status) Qualifiers: Altered mental status type: unspecified Qualified Code(s): R41.82 - Altered mental status, unspecified Hypothermia Qualifiers: Encounter type: initial encounter Qualified Code(s): T68.XXXA - Hypothermia, initial encounter
[2023-08-21] MEDS ORDERED: SODIUM CHLORIDE 0.9% 1,000 ML IV ONE ×3 (15:01→16:42)
[2023-08-21] MEDS ORDERED: CARBOHYDRATES FOR HYPOGLYCEMIA PO PRN (15:21)
[2023-08-21] MEDS ORDERED: STAT IV Infusion **Titration per Protocol STA (15:21)
[2023-08-21] MEDS ORDERED: DEXTROSE 50% 50 ML SYRINGE IV PRN (15:21)
[2023-08-21] MEDS ORDERED: DKA GOAL RANGE 150-250 mg/dl ONE (15:21)
[2023-08-21] MEDS ORDERED: GLUCOSE 40% GEL 15 GM TUBE PO PRN (15:21)
[2023-08-21] MEDS ORDERED: GLUCAGON FOR INJ 1 MG VIAL SQ PRN (15:21)
[2023-08-21] MEDS ORDERED: GLUCOSE 10 TAB/TUBE PO PRN (15:21)
[2023-08-21 15:26] LABS: iSTAT Creatinine 2.7 mg/dl (0.6-1.3); iSTAT Hemoglobin 14.6 g/dl (14.0-18.0); iSTAT Ionized Calcium 1.07 mmol/l (1.12-1.32); iSTAT Potassium 5.5 mmol/L (3.3-5.0)
[2023-08-21 15:26] LABS: Base Excess VBG -13.4 mEq/L; HCO3 VBG 14 mmol/L; Oxygen Saturation VBG < 60.0 %; PCO2 VBG 38 mmHg (38-50); PO2 VBG 24 mmHg; pH VBG 7.18 (7.36-7.41)
--- NOTE | 2023-08-21 15:30 | XRay Report ---
XR chest 1V portable HISTORY: 68 years-old Male Sepsis acute sepsis COMPARISON: PET/CT 04/13/2023 TECHNIQUE: AP view of the chest FINDINGS: Cardiomediastinal and hilar silhouettes are within normal limits. Sclerosis with chronic fracture def ormity of the medial right clavicle and posterior lateral left seventh rib redemonstrated. Atheroscle rosis of the aorta. Mild right hemidiaphragmatic elevation. Additional chronic right rib deformities again noted. No new destructive bone lesions. IMPRESSION: 1. No acute processes of the chest. 2. Chronic findings as above. ACT 112: Negative or not required by law. The above report was generated using voice recognition software. It may contain grammatical, syntax o r spelling errors. Electronically signed by: Дмитрий Wooten M.D. 08/21/2023 3:29 PM
[2023-08-21 15:33] LABS: Basophils # (auto) 0.03 K/uL (0.00-0.20); Basophils % (auto) 0.4 %; Hemoglobin 14.6 g/dl (14.0-18.0); Immature Granulocytes # (auto) 0.12 K/uL (0.01-0.20); Immature Granulocytes % (auto) 1.6 %; Lymphocytes # (auto) 0.79 K/uL (1.20-3.40); Lymphocytes % (auto) 10.3 %; Mean Corpuscular Hemoglobin 32.3 pg (25.0-34.0); Mean Corpuscular Hgb Conc 36.5 g/dL (32.0-36.0); Mean Corpuscular Volume 88.5 fL (80.0-100.0); Mean Platelet Volume 11.3 fL (9.4-12.4); Monocytes # (auto) 0.49 K/uL (0.11-0.59); Monocytes % (auto) 6.4 %; Neutrophils # (auto) 6.25 K/uL (1.40-6.50); Neutrophils % (auto) 81.3 %; Platelet Count 175 K/uL (130-400); RDW Coefficient of Variation 13.8 % (11.5-14.5); RDW Standard Deviation 44.8 fL (36.4-46.3); Red Blood Count 4.52 M/uL (4.70-6.10); White Blood Count 7.68 K/ul (4.8-10.8)
[2023-08-21 15:54] LABS: Appearance Urine Clear (Clear); Bilirubin Urine Negative (Negative); Blood Urine Negative (Negative); Color Urine Yellow; Glucose Urine UA 3+ (Negative); Ketones Urine Trace (Negative); Leukocyte Esterase Urine Negative (Negative); Nitrite Urine Negative (Negative); Protein Urine Negative (Negative); Specific Gravity Urine 1.019 (1.000-1.030); Urobilinogen Urine Negative (Negative)
[2023-08-21 15:57] LABS: Albumin Level 3.8 gm/dl (3.4-5.0); BUN Creatinine Ratio 35.8 (10-20); Bilirubin Direct 0.2 mg/dl (0-0.2); Bilirubin,Total 1.1 mg/dl (0.2-1.0); Calcium 8.6 mg/dl (8.6-10.3); Creatinine Clr Calc Pharmacy 26.4 ml/min; Est GFR (African American) 27.7 ml/min; Est GFR (Non-African American) 23.9 ml/min; Magnesium 2.4 mg/dl (1.7-2.4); Potassium 5.5 mmol/L (3.5-5.1); Total Protein 6.4 gm/dl (6.0-8.3); Troponin I High Sensitivity 24.8 pg/ml (0-20)
[2023-08-21 16:05] LABS: INR 0.9 (0.9-1.1); Partial Thromboplastin Ratio 0.8; Partial Thromboplastin Time 23 Seconds (21-31); Prothrombin Time 10.3 Seconds (9.0-12.0)
[2023-08-21] MEDS ORDERED: CEFEPIME 2,000 MG/20 ML VIAL IV STA (16:12)
[2023-08-21] MEDS: INSULIN REGULAR 250 UNITS in SODIUM CHLORIDE 0.9% 247.5 ML IV SCH (16:13)
--- NOTE | 2023-08-21 16:14 | CT Scan Report ---
CT OF THE HEAD WITHOUT CONTRAST CLINICAL HISTORY: Altered mental status. COMPARISON STUDY: MRI of the brain December 09, 2015. Head CT August 18, 2022. CT DOSE: 1361.92 mGy.cm TECHNIQUE: Helical axial images of the head were obtained without IV contrast. Automated exposure con trol was utilized for the study. A dose lowering technique was utilized adhering to the principles o f ALARA. FINDINGS: No acute intracranial hemorrhage, midline shift or mass effect is present. The ventricular system is unremarkable. The basal cisterns are patent. No extra-axial collections are present. There are no findings to suggest acute dural sinus thrombosis or acute territorial infarct. No significant calvarial abnormalities are present. Visualized portions of the sinuses and mastoid air cells are radha ar. IMPRESSION: No acute intracranial findings. ACT 112: Negative or not required by law. Electronically signed by: Hai Lisa M.D. 08/21/2023 4:12 PM
--- NOTE | 2023-08-21 16:18 | CT Scan Report ---
CT chest diagnostic wo con CLINICAL HISTORY: low BP TECHNIQUE: Multidetector row helical CT of the chest was performed. Coronal and sagittal reformations were obtained. Automated dose lowering techniques and/or adjustment according to patient size were u tilized for this exam. Comparison: Comparison is made to CT chest 02/09/2023 FINDINGS: Lungs and pleura: Bronchiectasis and scarring are seen in the posterior medial lower lobes, similar t o prior exam. Heart and pericardium: Heart size is normal. No pericardial effusion. Vessels: Moderate atherosclerotic changes in the aorta and coronary arteries. Mediastinum and lara: Unremarkable. Chest wall and lower neck: Unremarkable. Abdomen: For findings below the diaphragm, please refer to CT of the abdomen dated the same. Bones: Degenerative changes in the thoracic spine. Multiple expansile lytic lesions are seen in the r ibs, with some pathologic fractures. Additional lytic lesions are seen in the spine. IMPRESSION: 1. No acute abnormalities. Redemonstration of lytic lesions and pathologic fractures compatible with history of multiple myeloma. 2. Redemonstration of scarring in the posterior medial lung. ACT 112: Negative or not required by law. Electronically signed by: Jalil Sargent M.D. 08/21/2023 4:17 PM
[2023-08-21 16:25] LABS: Adenovirus PCR Not Detected (NotDetected); Bordetella parapertussis PCR Not Detected (NotDetected); Bordetella pertussis PCR Not Detected (NotDetected); Chlamydia pneumoniae PCR Not Detected (NotDetected); Coronavirus 229E PCR Not Detected (NotDetected); Coronavirus CoV-2 (COVID19)PCR Not Detected (NotDetected); Coronavirus HKU1 PCR Not Detected (NotDetected); Coronavirus NL63 PCR Not Detected (NotDetected); Coronavirus OC43PCR Not Detected (NotDetected); Human Metapneumovirus PCR Not Detected (NotDetected); Influenza A PCR Not Detected (NotDetected); Influenza B PCR Not Detected (NotDetected); Mycoplasma pneumoniae PCR Not Detected (NotDetected); Parainfluenza Virus 1 PCR Not Detected (NotDetected); Parainfluenza Virus 2 PCR Not Detected (NotDetected); Parainfluenza Virus 3 PCR Not Detected (NotDetected); Parainfluenza Virus 4 PCR Not Detected (NotDetected); Respiratory Syncytial VirusPCR Not Detected (NotDetected); Rhinovirus/Enterovirus PCR Not Detected (NotDetected)
--- NOTE | 2023-08-21 16:38 | CT Scan Report ---
CT abd pelvis wo con CLINICAL HISTORY: low BP TECHNIQUE: Helical axial images of the abdomen and pelvis were obtained. Automated dose lowering tech niques and/or adjustment according to patient size were utilized for this exam. This exam was perfor med without intravenous contrast. COMPARISON: Comparison is made to CT radiation therapy 11/22/[address] abdomen pelvis 08/05/2022 FINDINGS: Lower chest: For findings above the diaphragm, please see CT chest performed same day. Liver: Unremarkable. No focal lesions are seen. Gallbladder and biliary tree: Cholelithiasis is seen without evidence of cholecystitis. No intra- or extrahepatic biliary ductal dilation. Pancreas: Fatty replacement of the pancreas is seen. Spleen: Unremarkable. Adrenals: Unremarkable. Kidneys and ureters: Nonobstructive nephrolithiasis is seen. Bladder: Gates catheter is seen. Reproductive organs: Unremarkable. Bowel: Diverticulosis is seen without diverticulitis. The appendix is normal. Small hiatal hernia. Lymph nodes Retroperitoneal: Unremarkable. Pelvic: Unremarkable. Mesenteric: Unremarkable. Peritoneum: Normal. Vessels: Atherosclerotic calcifications are seen. Abdominal wall: Unremarkable. Bones: Fractures of the left superior and inferior pubic rami are more fragmented than in the prior e xam. Multilevel vertebral compression deformities are seen. Multiple lytic lesions noted. IMPRESSION: No acute abnormality. Fractures of the left superior-inferior pubic rami are more fragmented than in the prior exam. Numerous lytic lesions are seen throughout the skeleton. Compression fractures are st able. ACT 112: Negative or not required by law. Electronically signed by: Jalil Sargent M.D. 08/21/2023 4:37 PM
--- NOTE | 2023-08-21 16:45 | Electrocardiogram Report ---
Test Reason : Blood Pressure : / mmHG Vent. Rate : 125 BPM Atrial Rate : 125 BPM P-R Int : 146 ms QRS Dur : 074 ms QT Int : 224 ms P-R-T Axes : 070 -62 051 degrees QTc Int : 323 ms Normal sinus rhythm Left axis deviation Abnormal ECG When compared with ECG of 30-AUG-2022 20:18, Nonspecific T wave abnormality now evident in Inferior leads T wave inversion now evident in Anterior leads Confirmed by Marky Enciso ([id number]) on 08/21/2023 4:44:40 PM Referred By: Confirmed By:Benedicto Enciso
--- NOTE | 2023-08-21 16:45 | History & Physical Report ---
Date of Service August 21, 2023 Assessment & Plan (1) DKA (diabetic ketoacidosis): Plan: Type II DM Suspect due to basal insulin noncompliance, continued volume depletion, and possible steroid use. Type II DM, but with metabolic acidosis and ketonuria Hyperglycemic with pseudohyponatremia, sodium corrects to 132 Patient reports he is a type II diabetic but has had DKA in the past. Somewhat unreliable historian, does have ketones in urine. Is on 33 units of basal insulin and metformin at home Insulin GTT ordered BMP every 4 hours. Potassium is elevated on assessment, initial potassium repletion deferred. Potassium is now down trended to less than 5.1 -->t maintenance fluids switched to LR with supplemental KCl. 1 KCl rider added as patient is still being expanded with saline and has had rapid downtrending potassium Patient continuing with volume expansion, is profoundly clinically fully contracted on admission. Improving on reassessment but not yet normotensive Lactate elevated, repeat pending - He does report fevers and chills for at least a week, but has no localizing infectious symptoms. He denies shortness of breath, sputum production, abdominal pain, dysuria. UA is clear, CT of the chest and pelvis show chronic fractures and lytic lesions with his multiple myeloma but no acute infectious pathology. Tickborne serology is pending as he lives in a home in the [facility] with several pets. Cefepime given empirically on admission, blood cultures were drawn on admission, additional antibiotics deferred as presentation may be due to poor intake/insulin noncompliance alone. Procalcitonin is 0.41. 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 Patient is prescribed Eliquis twice daily [employer], patient is not sure if he has been taking this or not. He is not hypoxic on admission. Endorses diffuse bodyaches but does not feel he has any calf pain on admission. No calf swelling Patient reports he has not taken any blood thinners day of admission, coags PT 10.3/INR 0.9/APTT 32/PTT 1.1 -Transition to Lovenox 1 MTK twice daily pending improvement in cognition/L n.p.o., can transition back to Eliquis once clinically improved (5) Hypertension: Plan: Antihypertensives held for hypotension and volume depletion. Patient is on hydrochlorothiazide and lisinopril [employer]. Is on metoprolol tartrate 50 mg twice daily [employer], once BP improved resume this or convert to 2.5 every 4 hours IV to prevent beta-larry withdrawal. Denies history of A-fib (6) YOSI (acute kidney injury): Plan: With hyperglycemia and profound volume contraction, trend BMP daily, fluids as noted Baseline creatinine around 1.26, creatinine 2.56 on admission (7) Self-care deficit: Plan: Discussed with oncology. Patient has missed multiple appointments, and then discussed with his friend patient has multiple pill bottles but is a unreliable historian of what he takes and is somewhat confused. Is supposed to take dexamethasone prior to chemo treatments but may be taking this more often, and is from does not think he has been taking his insulin or blood thinner. CM/palliative are consulted Plan DVT prophylaxis: Lovenox, transition back to Eliquis when OK to take PO Disposition: ICU CODE STATUS: Full code per patient Diet: N.p.o. History of Present Illness Primary Care Provider: Maria Ines Damon, DO Hx limited due to confusion, friend Ori provides collateral at bedside Fevers/chills x2 weeks +diffuse body aches/myalgias Cats/pets, lives in a home in the [facility] Diarrhea x2 weeks, loose but not liquid. No blood/melena. No change in the last week, not getting any better. 1-2 bms daily. no abdominal. +peeing daily, but less and a little darker. NO dysuria or pain. greatly decreased appetite, minimal PO intake. No dysuria, has had some decrease is voiding frequency/volume No swelling in hands/feet No chest pain CHronic caner pain mostly in his L hip and pelvis. . Thinks he might have fall today. No falls in prior few weeks. Fall today was when he was gettign ready for his doctor appointment, felt weak. No syncope/presyncope/head injury. Intermittently confused. Not oriented to year. Oriented to 'winter.' Is oriented to hospital. Infusion of chemo this morning, doesn't know what he was supposted to get. Wendy Chaudhry would be surrogate DM. [phone]. friend Ori Weaver [phone] 2nd contact [place] [facility] [place]: Asa daily On Eliquis 5 mg twice daily for recurrent dvt Dexamethasone 4 mg recently Metformin 500 a.m., 1 g p.m. Metoprolol 50 mg tartrate twice daily Ozempic not filled since 08/2022 On Tresiba 33 units Atorvastatin 40 mg Gabapentin 100 mg at bedtime Hydrochlorothiazide 25 mg daily Lisinopril 20 mg daily Metformin 500 mg a.m., 1000 mg p.m. Oxycodone every 6 hours as needed Discussed w/ on. On Xgeva denosumab. Last dose Jun 21. Missed several doses (4 appointments). Painful hip, but Nonop per ortho. is supposed to be on dexamethasone around chemo, but may be taking this continually per his friend at bedside. Allergies Allergy/AdvReac Type Severity Reaction Status Date / Time amoxicillin [From Augmentin] Allergy Intermediate SWELLING Verified 08/21/23 16:03 AROUND EYES clavulanic acid Allergy Intermediate SWELLING Verified 08/21/23 16:03 AROUND THE EYES Penicillins Allergy Intermediate AUGMENTIN Verified 08/21/23 16:03 - SWELLING AROUND THE EYES diflunisal AdvReac Intermediate VOMITING Verified 08/21/23 16:03 valsartan [From Diovan] AdvReac Intermediate Vomiting Verified 08/21/23 16:03 Home Medications Medication Instructions Recorded Confirmed Type atorvastatin 40 mg tablet (Lipitor) 40 mg PO HS 08/09/19 08/21/23 History cholecalciferol (vitamin D3) 25 1,000 units PO DAILY 01/27/20 08/21/23 History mcg (1,000 unit) tablet multivitamin (Multiple Vitamins 1 tab PO DAILY 01/27/20 08/21/23 History tablet) blood sugar diagnostic (Accu-Chek #100 ea 05/23/22 08/21/23 Rx Josephine Plus test strips) diclofenac sodium 75 mg 75 mg PO BID PRN Pain 08/05/22 08/21/23 History tablet,delayed release pantoprazole 40 mg tablet,delayed 40 mg PO QAM #60 tabs 08/24/22 08/21/23 Rx release metoprolol tartrate 50 mg tablet 50 mg PO BID #180 tabs 10/31/22 08/21/23 Rx pen needle, diabetic 32 gauge x #100 ea 11/14/22 08/21/23 Rx 5/32" (BD Ultra-Fine Augustina Pen Needle) polyethylene glycol 3350 17 gram 17 g PO DAILY PRN Constipation 11/22/22 08/21/23 History oral powder packet (Miralax) spironolactone 25 1 tab PO DAILY #90 tabs 04/04/23 08/21/23 Rx mg-hydrochlorothiazide 25 mg tablet acyclovir 400 mg tablet 400 mg PO BID 08/21/23 08/21/23 History dexamethasone 4 mg tablet 4 mg PO DAILY 08/21/23 08/21/23 History hydrochlorothiazide 25 mg tablet 25 mg PO DAILY 08/21/23 08/21/23 History lisinopril 10 mg tablet 10 mg PO DAILY 08/21/23 08/21/23 History metformin 500 mg tablet 1,000 mg PO QPM 08/21/23 08/21/23 History metformin 500 mg tablet 500 mg PO QAM 08/21/23 08/21/23 History Past Med/Surg History Medical History Edema Weakness generalized Cancer related pain Advanced care planning/counseling discussion Palliative care encounter Light chain myeloma Metabolic encephalopathy Elevated troponin level Hypercalcemia Acute renal failure Acute back pain Fatigue GE reflux Hypertension Gout Vitamin D deficiency Obstructive sleep apnea Dyslipidemia Type 2 diabetes mellitus Tendon laceration Laceration of multiple sites of left hand and fingers Chest pain Bronchitis Surgical History History of surgery on arm Family History Father Alzheimer disease Dyslipidemia Mother Diabetes Coronary heart disease Other Family history non-contributory Social History Smoking Status: Never smoker Second Hand Exposure: No; Do You Dip or Chew Tobacco: No; Hx Alcohol Use: No Hx Substance Use: No Preferred Language: Italian Communication Ability: Effective It Help Desk Manager Required: No Beliefs That Will Affect Care: None marital status: Single marital status details: no children Current Living Situation: Parent Current Living Situation Comment: Takes care of mother current occupational status: retired Feels Safe at Home: Yes Assistive Devices: Crutches Physical Exam Physical Exam: General: Oriented to name and hospital only. Limited historian. His friend provides collateral at bedside, notes a lot of the history that Haroon provides is inconsistent/inaccurate with what he is observed HEENT: Atraumatic, normocephalic. Vision/hearing is intact MM dry Pulm: CTAB A&P. -wheezes, -rales, -rhonchi. Symmetrical chest rise. No increased work of breathing. No respiratory distress. Cardiac: Tachycardic, -mrg. Radial pulses intact and symmetrical. Abdominal: Nontender, nondistended, soft. BS present. Extremities: Warm, dry. No edema. No rashes Results & Data Results & Data Vital Signs (Past 12 Hours) Vital Signs Temp Pulse Pulse Resp BP BP Pulse Ox 08/21/23 16:20 88 20 99/67 L 100 08/21/23 16:10 35.6 C L 90 20 114/52 L 100 08/21/23 15:41 84 20 111/78 98 08/21/23 15:21 98 08/21/23 15:21 65 20 100/63 98 08/21/23 15:07 65 08/21/23 14:39 229 H 25 H 80/50 L O2 Del Method 08/21/23 16:20 Room Air 08/21/23 16:10 Room Air 08/21/23 15:41 Room Air 08/21/23 15:21 Room Air 08/21/23 15:21 Room Air 08/21/23 15:07 08/21/23 14:39 PG Care Time/CCT Total # of Minutes Spent Total Time Spent with Patient: Total time spent is greater than 50% in coordination of care (as documented) at patient's floor/unit and/or counseling patient: Coding Level of Care Code 67402 INT INP/OBS CARE 3/75MIN Diagnoses DKA (diabetic ketoacidosis) E13.10 Diabetes mellitus complication detail: without coma Diabetes mellitus type: other specified (including KEENA) Light chain myeloma C90.00 Pathological compression fracture of spine M48.50XA Pulmonary embolus I26.99 Hypertension I10 YOSI (acute kidney injury) N17.9 Self-care deficit Z78.9 (1) DKA (diabetic ketoacidosis) Diabetes mellitus complication detail: without coma Diabetes mellitus type: other specified (including KEENA) Qualified Code(s): E13.10 - Other specified diabetes mellitus with ketoacidosis without coma
[2023-08-21] MEDS ORDERED: PHARMACY GLYCEMIC MGMT CONSULT PRN (17:39)
[2023-08-21 17:44] LABS: Base Excess VBG -14.3 mEq/L; HCO3 VBG 13 mmol/L; Oxygen Saturation VBG < 60.0 %; PCO2 VBG 35 mmHg (38-50); PO2 VBG 25 mmHg; pH VBG 7.18 (7.36-7.41)
[2023-08-21] MEDS ORDERED: STAT IV/IM STA ×2 (17:49→21:28)
[2023-08-21] MEDS ORDERED: CALCIUM GLUCONATE 10% 1,000 MG in SODIUM CHLOR 0.9% MINI-B 50 ML IV ONE (17:49)
[2023-08-21] MEDS ORDERED: CALCIUM GLUCONATE 1,000 MG/60 ML BAG IV STA (17:52)
[2023-08-21] MEDS ORDERED: INSULIN ASPART PER UNIT CHARGE SC SCH (18:00)
[2023-08-21 18:11] LABS: BUN Creatinine Ratio 39.1 (10-20); Calcium 7.2 mg/dl (8.6-10.3); Creatinine Clr Calc Pharmacy 30.5 ml/min; Est GFR (Non-African American) 28.5 ml/min; Magnesium 2.2 mg/dl (1.7-2.4); Phosphorus 4.4 mg/dl (2.5-4.9); Potassium 4.6 mmol/L (3.5-5.1)
[2023-08-21] MEDS ORDERED: POTASSIUM CHLORIDE 20 MEQ in LACTATED RINGER'S 1,000 ML IV SCH (18:15)
[2023-08-21 18:30] LABS: Lyme Ab IgG w/WB Rflx Negative (Negative); Lyme Ab IgM w/WB Rflx Negative (Negative)
[2023-08-21] MEDS ORDERED: POTASSIUM CHLORIDE / WTR 10 MEQ/100 ML PLCT IV ONE (18:30)
[2023-08-21] MEDS ORDERED: POTASSIUM CHLORIDE 20 MEQ/15 ML UDC PO STA ×2 (18:43→21:25)
--- NOTE | 2023-08-21 18:57 | Critical Care Consultation ---
Date of Consultation August 21, 2023 Assessment & Plan (1) DKA (diabetic ketoacidosis): (2) Hypothermia: (3) Elevated troponin I level: (4) Dyslipidemia: (5) Type 2 diabetes mellitus: (6) Pulmonary embolus: (7) DVT (deep venous thrombosis): (8) YOSI (acute kidney injury): (9) Self-care deficit: (10) Metabolic acidosis: (11) Encephalopathy: Plan Reason Critically Ill: 68 YOM presents with DKA and general feeling of weakness and myalgias. Imitation of insulin infusion, crystalloid resuscitation, and infectious work up performed. To ICU to monitor acid base status, hemodynamics and response to therapies. Neuro - Encephalopathy CAM ICU: + - Encephalopathy at this time is likely metabolic in nature secondary to DKA and hypothermia- currently improving - Head CT negative- some mention of possible fall while on blood thinners- follow neurological exams closely- any change obtain non con head CT for evaluation of DASH - Improve acid/base status and glucose levels Cardiac - Shock, Elevated HsCTNI - Hypovolemia most likely secondary to DKA at this time- lactate cleared initially was improved - will provide another liter of crystalloid - arterial line for hemodynamic monitoring and frequent blood draws - He is hypothermic on arrival- with blood and urine cultures pending as well as tick borne - See ID section below - Continue with volume resuscitation for hemodynamics and urine output - HscTNI mildly elevated - ECG with nonspecific T wave changes, which may just be related to electrolyte abnormalities- trend. Patient reports with no chest pain - Previous atypical chest pain work-up was in negative EST and stress ECHO in 2009 Respiratory - Hx of PE, - See Heme section below - no acute needs or opacities on imaging or concern of pneumonia GI - No acute needs at this time - NPO until glucose better controlled and gap closing RENAL/LYTES - YOSI II on CKD III, Multiple electrolyte disturbances, AGAP Metabolic Acidosis, DKA - All the above most consistent with hypovolemia and DKA - Continue with supportive care and aggressive electrolyte replacement while on insulin infusion - On Metformin at home- may also be metformin associated acidosis on top of DKA- continue current treatment plan - No acute needs - Urine culture pending- follow ENDO - DMII, DKA - DKA likely secondary to non-compliance- however with myalgias and subjective fevers at home - DKA protocol- try to keep BG level from dropping >100 mg/dl per hour HEME - Myelomma, Hx PE/DVT - has had compliance issues in regarding making his appointments for chemo - For his PE/DVT- Lovenox weight based initiated every 12 hours by admitting service- continue at this time- can transition to oral agent once encephalopathy has improved ID - SIRS - Technically meets SIRS criteria- however immunocompromised - Is without leukocytosis, PCT negative, CT chest negative for acute process - He is however hypothermic and with reports of n/v/diarrhea- has had imaging of head, chest, abdomen and pelvis which is negative for acute process or any enteritis/colitis- Has received 1 dose of Cefepime in EMD - Will hold on further antibiotics at this time and follow fever curve, stool burden, and exam- low threshold to re-initiate broad spectrum - Viral respiratory panel negative for tested viruses LINES/IV ACCESS - PIV - Continue use of these lines - May need arterial line DVT PROPHYLAXIS - SCDs, Lovenox DISPO: ICU until gap closed, PH improved, and glucose levels <200 and preferably off of insulin infusion. I have personally spent 50 minutes of critical care time in the direct management of this patient. This is a life/limb threatening event. This includes time spent evaluating patient, direct bedside care, chart review, placing orders, interpretation of diagnostic studies, discussion with consultants, patient, and family members, as well as other required patient management activities. This time is exclusive of all separately billable procedures, and teaching time and separate from and in addition to any other critical care service time. Thank you for allowing us to participate in the care of this patient. Please refer to my attending physician's documentation for any further recommendations. History of Present Illness Reason for Consultation: DKA Requesting Physician: Karthikeyan Callejas MD Attending Physician: Karthikeyan Callejas MD History of Present Illness 68 YOM with medical history of : HTN, HLD, Light Chain Myeloma- now starting Xgeva (previously on Bortezomib) with mets post palliative radiation to spine and pelvis- stopped per patient request (08/22), DVT- Left common femoral (12/14/22), PE (02/09/23)- supposed to be on Eliquis BID, CKDIII. Patient presents to the EMD today with his friend, who checks on him while patient is at home. He has complaints of fever/chills for 1-2 weeks, abdominal pain with nausea/vomiting and diarrhea. He notes decrease in appetite and fluid intake but with increase in urination. He is uncertain if he was continuing to take his diabetic regimen at home. Per Medicine HPI as well he is to be taking Decadron with his chemo regimen however may be taking more or less of this. In any event, the patient was found to be hypothermic, with YOSI, and with elevated blood glucose level >600, AG 17, HCO3 of 10, and PH of 7.18. He was initially given 2 liters of crystalloid and initiated on insulin infusion as well as passive warming with brittani hugger. His hemodynamics and mentation have improved following warming, crystalloid administration, and insulin. Patient will be admitted to the ICU to follow acid base status, glucose levels, and hemodynamics. CODE: Allergies Allergy/AdvReac Type Severity Reaction Status Date / Time amoxicillin [From Augmentin] Allergy Intermediate SWELLING Verified 08/21/23 16:03 AROUND EYES clavulanic acid Allergy Intermediate SWELLING Verified 08/21/23 16:03 AROUND THE EYES Penicillins Allergy Intermediate AUGMENTIN Verified 08/21/23 16:03 - SWELLING AROUND THE EYES diflunisal AdvReac Intermediate VOMITING Verified 08/21/23 16:03 valsartan [From Diovan] AdvReac Intermediate Vomiting Verified 08/21/23 16:03 Home Medications Medication Instructions Recorded Confirmed Type atorvastatin 40 mg tablet (Lipitor) 40 mg PO HS 08/09/19 08/21/23 History cholecalciferol (vitamin D3) 25 1,000 units PO DAILY 01/27/20 08/21/23 History mcg (1,000 unit) tablet multivitamin (Multiple Vitamins 1 tab PO DAILY 01/27/20 08/21/23 History tablet) blood sugar diagnostic (Accu-Chek #100 ea 05/23/22 08/21/23 Rx Josephine Plus test strips) diclofenac sodium 75 mg 75 mg PO BID PRN Pain 08/05/22 08/21/23 History tablet,delayed release pantoprazole 40 mg tablet,delayed 40 mg PO QAM #60 tabs 08/24/22 08/21/23 Rx release metoprolol tartrate 50 mg tablet 50 mg PO BID #180 tabs 10/31/22 08/21/23 Rx pen needle, diabetic 32 gauge x #100 ea 11/14/22 08/21/23 Rx 5/32" (BD Ultra-Fine Augustina Pen Needle) polyethylene glycol 3350 17 gram 17 g PO DAILY PRN Constipation 11/22/22 08/21/23 History oral powder packet (Miralax) spironolactone 25 1 tab PO DAILY #90 tabs 04/04/23 08/21/23 Rx mg-hydrochlorothiazide 25 mg tablet acyclovir 400 mg tablet 400 mg PO BID 08/21/23 08/21/23 History dexamethasone 4 mg tablet 4 mg PO DAILY 08/21/23 08/21/23 History hydrochlorothiazide 25 mg tablet 25 mg PO DAILY 08/21/23 08/21/23 History lisinopril 10 mg tablet 10 mg PO DAILY 08/21/23 08/21/23 History metformin 500 mg tablet 1,000 mg PO QPM 08/21/23 08/21/23 History metformin 500 mg tablet 500 mg PO QAM 08/21/23 08/21/23 History Patient History Medical History Edema Weakness generalized Cancer related pain Advanced care planning/counseling discussion Palliative care encounter Light chain myeloma Metabolic encephalopathy Elevated troponin level Hypercalcemia Acute renal failure Acute back pain Fatigue GE reflux Hypertension Gout Vitamin D deficiency Obstructive sleep apnea Dyslipidemia Type 2 diabetes mellitus Tendon laceration Laceration of multiple sites of left hand and fingers Chest pain Bronchitis Surgical History History of surgery on arm Family History Father Alzheimer disease Dyslipidemia Mother Diabetes Coronary heart disease Other Family history non-contributory Social History Smoking Status: Unknown if ever smoked Second Hand Exposure: No; Do You Dip or Chew Tobacco: No; Preferred Language: Estonian Communication Ability: Effective Retaining Room Cutter Required: No Beliefs That Will Affect Care: None marital status: Single marital status details: no children Current Living Situation: Family Current Living Situation Comment: lives with mother current occupational status: retired Feels Safe at Home: Yes Assistive Devices: Crutches Review of Systems Review of Systems: REVIEW OF SYSTEMS: Constitutional: (+) fever, sweats, myalgias Eyes: No diplopia, no worsening or blurred vision ENT: normal hearing, no trouble swallowing Respiratory: No cough, sputum, dyspnea at rest or on exertion Cardiovascular: No chest pain, tightness or palpitations Abdomen: (+) n/v, diarrhea, No pain Musculoskeletal: (+) myalgias LT>RT Neurologic: No weakness, numbness/tingling, or balance problems Skin: No rash or itch Physical Exam Physical Exam: PHYSICAL EXAM: General: awake, states feeling better Head: Normocephalic, atraumatic ENT: PERRLA, EOMI, no pharyngeal exudate, mucous membranes moist Neuro: AAO x 2, encephalopathic- but appears to be improving, speech clear and appropriate but slow, strength intact bilaterally 5/5, sensation intact and equal all extremities and dermatones, no pronator drift Chest: equal rise and fall of the chest, no accessory muscle use, no heaves or thrills, Clear to auscultation, on room air, Cardiac: Regular rate and rhythm, telemetry reviewed- NSR, skin warm dry, cap refill <3 seconds, peripheral pulses +2 no JVD, no murmur, trace edema lower extremities bilaterally GI: NABS x 4 quadrants, soft, nontender to palpation, no rebound, guarding or tenderness : Spontaneously voiding, no pain Skin: no rash or erythema Results & Data Results & Data Vital Signs (Past 12 Hours) Vital Signs Temp Pulse Pulse Resp BP BP Pulse Ox 08/21/23 18:30 101/54 L 08/21/23 18:30 92 H 08/21/23 18:01 98 H 100 08/21/23 18:01 98/54 L 08/21/23 18:00 94 H 100 08/21/23 17:42 35.9 C L 08/21/23 17:30 93 H 100 08/21/23 17:00 92/59 L 08/21/23 17:00 94 H 100 08/21/23 16:45 93 H 100 08/21/23 16:45 91/59 L 08/21/23 16:44 96 H 100 08/21/23 16:30 91 H 100 08/21/23 16:20 88 20 99/67 L 100 08/21/23 16:10 35.6 C L 90 20 114/52 L 100 08/21/23 15:41 84 20 111/78 98 08/21/23 15:21 98 08/21/23 15:21 65 20 100/63 98 08/21/23 15:07 65 08/21/23 14:39 229 H 25 H 80/50 L O2 Del Method 08/21/23 18:30 08/21/23 18:30 08/21/23 18:01 08/21/23 18:01 08/21/23 18:00 08/21/23 17:42 08/21/23 17:30 08/21/23 17:00 08/21/23 17:00 08/21/23 16:45 08/21/23 16:45 08/21/23 16:44 Room Air 08/21/23 16:30 08/21/23 16:20 Room Air 08/21/23 16:10 Room Air 08/21/23 15:41 Room Air 08/21/23 15:21 Room Air 08/21/23 15:21 Room Air 08/21/23 15:07 08/21/23 14:39 Laboratory Results Abnormal lab results 08/21/23 08/21/23 08/21/23 Range/Units 14:54 15:12 15:14 RBC 4.52 L (4.70-6.10) M/uL Hct 40.0 L (42.0-52.0) % MCHC 36.5 H (32.0-36.0) g/dL Lymph # (Auto) 0.79 L (1.20-3.40) K/uL VBG pH 7.18 L (7.36-7.41) VBG pCO2 (38-50) mmHg POC Sodium 117 L* (135-144) mmol/L Sodium 117 L* (136-145) mmol/L POC Potassium 5.5 H (3.3-5.0) mmol/L Potassium 5.5 H (3.5-5.1) mmol/L POC Chloride 91 L (101-112) mmol/L Chloride 85 L (98-107) mmol/L Carbon Dioxide 13 L (21-32) mmol/L POC Total CO2 14 L (24-31) mmol/L Anion Gap 19 H (3-11) POC BUN 86 H (7-18) mg/dl BUN 93 H (6-23) mg/dl Creatinine 2.60 H (0.6-1.4) mg/dl POC Creatinine 2.7 H (0.6-1.3) mg/dl BUN/Creatinine Ratio 35.8 H (10-20) Glucose 723 H* (70-99(Fasting)) mg/dl POC Glucose > 600 H* (70-99) mg/dl POC Glucose (other) 652 H* (70-99) mg/dl Lactate 3.2 H* (0.4-2.0) mmol/L Calcium (8.6-10.3) mg/dl POC Ioniz Calcium Jah 1.07 L (1.12-1.32) mmol/l Total Bilirubin 1.1 H (0.2-1.0) mg/dl Alkaline Phosphatase 172 H (34-104) U/L Troponin I High Sens 24.8 H (0-20) pg/ml Urine Glucose (UA) (Negative) Urine Ketones (Negative) 08/21/23 08/21/23 08/21/23 Range/Units 15:39 16:09 17:19 RBC (4.70-6.10) M/uL Hct (42.0-52.0) % MCHC (32.0-36.0) g/dL Lymph # (Auto) (1.20-3.40) K/uL VBG pH (7.36-7.41) VBG pCO2 (38-50) mmHg POC Sodium (135-144) mmol/L Sodium (136-145) mmol/L POC Potassium (3.3-5.0) mmol/L Potassium (3.5-5.1) mmol/L POC Chloride (101-112) mmol/L Chloride (98-107) mmol/L Carbon Dioxide (21-32) mmol/L POC Total CO2 (24-31) mmol/L Anion Gap (3-11) POC BUN (7-18) mg/dl BUN (6-23) mg/dl Creatinine (0.6-1.4) mg/dl POC Creatinine (0.6-1.3) mg/dl BUN/Creatinine Ratio (10-20) Glucose (70-99(Fasting)) mg/dl POC Glucose > 600 H* 513 H* (70-99) mg/dl POC Glucose (other) (70-99) mg/dl Lactate (0.4-2.0) mmol/L Calcium (8.6-10.3) mg/dl POC Ioniz Calcium Jah (1.12-1.32) mmol/l Total Bilirubin (0.2-1.0) mg/dl Alkaline Phosphatase (34-104) U/L Troponin I High Sens (0-20) pg/ml Urine Glucose (UA) 3+ H (Negative) Urine Ketones Trace H (Negative) 08/21/23 08/21/23 Range/Units 17:32 18:16 RBC (4.70-6.10) M/uL Hct (42.0-52.0) % MCHC (32.0-36.0) g/dL Lymph # (Auto) (1.20-3.40) K/uL VBG pH 7.18 L (7.36-7.41) VBG pCO2 35 L (38-50) mmHg POC Sodium (135-144) mmol/L Sodium 122 L (136-145) mmol/L POC Potassium (3.3-5.0) mmol/L Potassium (3.5-5.1) mmol/L POC Chloride (101-112) mmol/L Chloride 95 L (98-107) mmol/L Carbon Dioxide 12 L (21-32) mmol/L POC Total CO2 (24-31) mmol/L Anion Gap 15 H (3-11) POC BUN (7-18) mg/dl BUN 88 H (6-23) mg/dl Creatinine 2.25 H D (0.6-1.4) mg/dl POC Creatinine (0.6-1.3) mg/dl BUN/Creatinine Ratio 39.1 H (10-20) Glucose 537 H* (70-99(Fasting)) mg/dl POC Glucose 420 H* (70-99) mg/dl POC Glucose (other) (70-99) mg/dl Lactate (0.4-2.0) mmol/L Calcium 7.2 L (8.6-10.3) mg/dl POC Ioniz Calcium Jah (1.12-1.32) mmol/l Total Bilirubin (0.2-1.0) mg/dl Alkaline Phosphatase (34-104) U/L Troponin I High Sens 27.0 H (0-20) pg/ml Urine Glucose (UA) (Negative) Urine Ketones (Negative) Diagnostic Findings Chest X-Ray 08/21/23 14:49 XR chest 1V portable HISTORY: 68 years-old Male Sepsis acute sepsis COMPARISON: PET/CT 04/13/2023 TECHNIQUE: AP view of the chest FINDINGS: Cardiomediastinal and hilar silhouettes are within normal limits. Sclerosis with chronic fracture deformity of the medial right clavicle and posterior lateral left seventh rib redemonstrated. Atherosclerosis of the aorta. Mild right hemidiaphragmatic elevation. Additional chronic right rib deformities again noted. No new destructive bone lesions. IMPRESSION: 1. No acute processes of the chest. 2. Chronic findings as above. ACT 112: Negative or not required by law. The above report was generated using voice recognition software. It may contain grammatical, syntax or spelling errors. Electronically signed by: Дмитрий Wooten M.D. 08/21/2023 3:[address] 08/21/23 15:01 CT OF THE HEAD WITHOUT CONTRAST CLINICAL HISTORY: Altered mental status. COMPARISON STUDY: MRI of the brain December 09, 2015. Head CT August 18, 2022. CT DOSE: 1361.92 mGy.cm TECHNIQUE: Helical axial images of the head were obtained without IV contrast. Automated exposure control was utilized for the study. A dose lowering technique was utilized adhering to the principles of ALARA. FINDINGS: No acute intracranial hemorrhage, midline shift or mass effect is present. The ventricular system is unremarkable. The basal cisterns are patent. No extra-axial collections are present. There are no findings to suggest acute dural sinus thrombosis or acute territorial infarct. No significant calvarial abnormalities are present. Visualized portions of the sinuses and mastoid air cells are clear. IMPRESSION: No acute intracranial findings. ACT 112: Negative or not required by law. Electronically signed by: Hai Lisa M.D. 08/21/2023 4:12 PM Abdomen/Pelvis CT 08/21/23 15:16 CT abd pelvis wo con CLINICAL HISTORY: low BP TECHNIQUE: Helical axial images of the abdomen and pelvis were obtained. Automated dose lowering techniques and/or adjustment according to patient size were utilized for this exam. This exam was performed without intravenous contrast. COMPARISON: Comparison is made to CT radiation therapy 11/22/[address] abdomen pelvis 08/05/2022 FINDINGS: Lower chest: For findings above the diaphragm, please see CT chest performed same day. Liver: Unremarkable. No focal lesions are seen. Gallbladder and biliary tree: Cholelithiasis is seen without evidence of cholecystitis. No intra- or extrahepatic biliary ductal dilation. Pancreas: Fatty replacement of the pancreas is seen. Spleen: Unremarkable. Adrenals: Unremarkable. Kidneys and ureters: Nonobstructive nephrolithiasis is seen. Bladder: Gates catheter is seen. Reproductive organs: Unremarkable. Bowel: Diverticulosis is seen without diverticulitis. The appendix is normal. Small hiatal hernia. Lymph nodes Retroperitoneal: Unremarkable. Pelvic: Unremarkable. Mesenteric: Unremarkable. Peritoneum: Normal. Vessels: Atherosclerotic calcifications are seen. Abdominal wall: Unremarkable. Bones: Fractures of the left superior and inferior pubic rami are more fragmented than in the prior exam. Multilevel vertebral compression deformities are seen. Multiple lytic lesions noted. IMPRESSION: No acute abnormality. Fractures of the left superior-inferior pubic rami are more fragmented than in the prior exam. Numerous lytic lesions are seen throughout the skeleton. Compression fractures are stable. ACT 112: Negative or not required by law. Electronically signed by: Jalil Sargent M.D. 08/21/2023 4:[address] 08/21/23 15:16 CT chest diagnostic wo con CLINICAL HISTORY: low BP TECHNIQUE: Multidetector row helical CT of the chest was performed. Coronal and sagittal reformations were obtained. Automated dose lowering techniques and/or adjustment according to patient size were utilized for this exam. Comparison: Comparison is made to CT chest 02/09/2023 FINDINGS: Lungs and pleura: Bronchiectasis and scarring are seen in the posterior medial lower lobes, similar to prior exam. Heart and pericardium: Heart size is normal. No pericardial effusion. Vessels: Moderate atherosclerotic changes in the aorta and coronary arteries. Mediastinum and lara: Unremarkable. Chest wall and lower neck: Unremarkable. Abdomen: For findings below the diaphragm, please refer to CT of the abdomen dated the same. Bones: Degenerative changes in the thoracic spine. Multiple expansile lytic lesions are seen in the ribs, with some pathologic fractures. Additional lytic lesions are seen in the spine. IMPRESSION: 1. No acute abnormalities. Redemonstration of lytic lesions and pathologic fractures compatible with history of multiple myeloma. 2. Redemonstration of scarring in the posterior medial lung. ACT 112: Negative or not required by law. Electronically signed by: Jalil Sargent M.D. 08/21/2023 4:17 PM Medications Administered Insulin Human Regular 250 (units/ Sodium Chloride) 250 mls @ 10.1 mls/hr IV .Q24H TOMA; Protocol Stop: 09/20/23 15:29 Last Titration: 08/21/23 18:23 Dose: 10.1 units/hr, 10.1 mls/hr Documented By: ANDREA Co-signed By: HORTENSIA Titration: 08/21/23 17:26 Dose: 8.4 units/hr, 8.4 mls/hr Documented By: ANDREA Co-signed By: HORTENSIA Admin: 08/21/23 16:13 Dose: 7 units/hr, 7 mls/hr Documented By: AP Co-signed By: ANDREA Potassium Chloride 20 meq/ (Lactated Ringer's) 1,010 mls @ 175 mls/hr IV .Q5H47M TOMA Stop: 09/20/23 18:14 Last Admin: 08/21/23 18:50 Dose: 175 mls/hr Documented By: HORTENSIA Discontinued Medications Sodium Chloride (Nss) 1,000 mls @ 999 mls/hr IV .Q1H1M ONE Stop: 08/21/23 16:01 Last Infusion: 08/21/23 16:21 Dose: Infused Documented By: Admin: 08/21/23 15:20 Dose: 999 mls/hr Documented By: AP Sodium Chloride (Nss) 1,000 mls @ 999 mls/hr IV .Q1H1M ONE Stop: 08/21/23 16:20 Last Infusion: 08/21/23 16:29 Dose: Infused Documented By: Admin: 08/21/23 15:28 Dose: 999 mls/hr Documented By: AP Cefepime HCl (Maxipime) 2,000 mg in 20 mls @ 5 mls/min IV NOW STA; Protocol Stop: 08/21/23 16:15 Last Admin: 08/21/23 16:20 Dose: 5 mls/min Documented By: AP Sodium Chloride (Nss) 1,000 mls @ 999 mls/hr IV .Q1H1M ONE Stop: 08/21/23 17:42 Last Infusion: 08/21/23 18:59 Dose: Infused Documented By: Admin: 08/21/23 17:48 Dose: 999 mls/hr Documented By: HORTENSIA Calcium Gluconate () 1,000 mg in 60 mls @ 240 mls/hr IV ONE STA Stop: 08/21/23 18:06 Last Infusion: 08/21/23 18:58 Dose: Infused Documented By: Admin: 08/21/23 18:32 Dose: 240 mls/hr Documented By: HORTENISA Miscellaneous (Stat Iv Infusion Titration Per Protocol) 1 each N/A NOW STA Stop: 08/21/23 15:22 Last Admin: 08/21/23 16:13 Dose: 1 each Documented By: ES ECG Additional Comments: Normal sinus rhythm Left axis deviation Abnormal ECG When compared with ECG of 30-AUG-2022 20:18, Nonspecific T wave abnormality now evident in Inferior leads T wave inversion now evident in Anterior leads Confirmed by Mraky Enciso ([id number]) on 08/21/2023 4:44:40 PM Coding Level of Care Code 51688 CRITICAL CARE 1ST 30-74M Diagnoses DKA (diabetic ketoacidosis) E13.10 Diabetes mellitus complication detail: without coma Diabetes mellitus type: other specified (including KEENA) Hypothermia T68.XXXA Encounter type: initial encounter Elevated troponin I level R79.89 Dyslipidemia E78.5 Type 2 diabetes mellitus E11.9 Pulmonary embolus I26.99 DVT (deep venous thrombosis) I82.409 YOSI (acute kidney injury) N17.9 Self-care deficit Z78.9 Metabolic acidosis E87.20 Encephalopathy G93.40 (1) DKA (diabetic ketoacidosis) Diabetes mellitus complication detail: without coma Diabetes mellitus type: other specified (including KEENA) Qualified Code(s): E13.10 - Other specified diabetes mellitus with ketoacidosis without coma (2) Hypothermia Encounter type: initial encounter Qualified Code(s): T68.XXXA - Hypothermia, initial encounter
[2023-08-21] MEDS ORDERED: PENDING D5 1/2NS+20mEq KCL IVF SCH (19:00)
[2023-08-21] MEDS ORDERED: ENOXAPARIN 1 MG/KG SQ SCH (19:48)
[2023-08-21] MEDS ORDERED: PLASMA-LYTE A 500 ML IV ONE ×2 (19:48→20:43)
[2023-08-21] MEDS: D5W AND 1/2NSS + 20MEQ KCL 20 MEQ/1,000 ML BAG IV SCH (20:39)
[2023-08-21] MEDS ORDERED: ICU Protocol for HYPERglycemia SCH (21:00)
[2023-08-21] MEDS: INSULIN ASPART PER UNIT CHARGE SC SCH (21:00)
[2023-08-21 21:04] LABS: Troponin I High Sensitivity 25.8 pg/ml (0-20)
[2023-08-21 21:16] LABS: Calcium 6.9 mg/dl (8.6-10.3); Magnesium 1.9 mg/dl (1.7-2.4); Potassium 3.9 mmol/L (3.5-5.1)
[2023-08-21] MEDS: ENOXAPARIN 80 MG/0.8 ML SYR SQ SCH (21:20)
--- NOTE | 2023-08-21 21:22 | Procedure Note ---
Procedure Note Date of Service August 21, 2023 Note ARTERIAL LINE PROCEDURE NOTE: Procedure: Arterial Line Placement Proceduralist: Baldemar KAUFFMAN ([facility]) Attending: Dr. Ibarra Indication: Monitoring, frequent blood draws Anesthesia: [x]Lidocaine 1% Verbal Consent was obtained from patient. Benefits and risks were explained at length to patient, to include but not limited to:, pain, infection, arterial thrombus, damage to artery/nerve/surrounding tissues, need for further procedure. Patient verbalized understanding and wanted to proceed. ESTHELA Hill was present for discussion. A time-out was completed verifying correct patient, procedure, site, positionin g, and implant(s) or special equipment if applicable. Allens test was performed to ensure adequate perfusion. Patients LEFT wrist was prepped and draped in the usual sterile fashion. Ultrasound guidance was used to aid needle placement. A 20g Arrow arterial line was introduced into the LEFT RADIAL artery. Catheter was threaded, and the needle was removed with appropriate blood return. Good waveform was observed. The patient tolerated the procedure well. Attempts x1. The line was sutured in place and sterile dressing was applied. There were no immediate complications noted Blood Loss: Minimal Complications: None Artery Identified: YES Line confirmed in Artery with ultrasound: YES Complications: NONE Patient tolerated procedure: WELL Images not saved to permanent record as this was urgent Coding CPT Codes Tubes, Drains, and Vasc Access - Tubes, Drains, and Vasc Access: [id number] Arterial Cath/Cannulation Sampling/Monitoring/Transfusion ([id number]) [facility] [place]Charges) Tubes, Drains, and Vasc Access Procedure 1: Tubes, Drains, and Vasc Access: [id number] Arterial Cath/Cannulation Sampling/Monitoring/Transfusion
[2023-08-21 21:23] LABS: BUN Creatinine Ratio 40.6 (10-20); Creatinine Clr Calc Pharmacy 36.8 ml/min; Est GFR (African American) 41.3 ml/min; Est GFR (Non-African American) 35.6 ml/min; Phosphorus 2.8 mg/dl (2.5-4.9)
[2023-08-21 21:41] LABS: iSTAT Art Bld Gas pCO2 Correct 23 mmHg (35-46); iSTAT Art Bld Gas pH Corrected 7.363 (7.35-7.45); iSTAT Arterial Blood Gas HCO3 13 meg/L (19-24); iSTAT Arterial Blood Gas pCO2 24 mmHg (35-46); iSTAT Arterial Blood Gas pH 7.36 (7.35-7.45); iSTAT Arterial Blood Gas pO2 93 mmHg (80-95); iSTAT Arterial Blood Gas pO2 C 90; iSTAT Carbon Dioxide 14 mmol/L (24-31); iSTAT Hematocrit 25 % (42-52); iSTAT Hemoglobin 8.5 g/dl (14.0-18.0); iSTAT Potassium 3.9 mmol/L (3.3-5.0); iSTAT Site Art Line; iSTAT Sodium 129 mmol/L (135-144)
[2023-08-21] MEDS ORDERED: LACTATED RINGER'S 1,000 ML IV ONE (22:13)
[2023-08-21] MEDS ORDERED: PLASMA-LYTE A 1,000 ML IV ONE ×3 (22:14→23:45)
[2023-08-21] MEDS: CALCIUM GLUCONATE 10% 1,000 MG in SODIUM CHLOR 0.9% MINI-B 50 ML IV SCH ×2 (22:19→22:34)
[2023-08-21] MEDS: POTASSIUM CHLORIDE / WTR 10 MEQ/100 ML PLCT IV SCH (23:19)
[2023-08-22] MEDS: POTASSIUM CHLORIDE / WTR 10 MEQ/100 ML PLCT IV SCH ×3 (00:22→02:20)
[2023-08-22] MEDS ORDERED: PLASMA-LYTE A 1,000 ML IV ONE (00:52)
[2023-08-22] MEDS: D5W AND 1/2NSS + 20MEQ KCL 20 MEQ/1,000 ML BAG IV SCH ×2 (01:35→06:36)
[2023-08-22 02:34] LABS: BUN Creatinine Ratio 44.4 (10-20); Calcium 6.7 mg/dl (8.6-10.3); Creatinine Clr Calc Pharmacy 50.9 ml/min; Est GFR (African American) 61.2 ml/min; Est GFR (Non-African American) 52.8 ml/min; Phosphorus 1.6 mg/dl (2.5-4.9); Potassium 4.4 mmol/L (3.5-5.1)
[2023-08-22 07:15] LABS: BUN Creatinine Ratio 38.7 (10-20); Calcium 7.2 mg/dl (8.6-10.3); Creatinine Clr Calc Pharmacy 50.2 ml/min; Est GFR (African American) 60.1 ml/min; Est GFR (Non-African American) 51.9 ml/min; Magnesium 1.9 mg/dl (1.7-2.4); Phosphorus 1.3 mg/dl (2.5-4.9); Potassium 4.5 mmol/L (3.5-5.1)
--- NOTE | 2023-08-22 07:34 | Critical Care Progress Note ---
Date of Service August 22, 2023 Assessment & Plan (1) DKA (diabetic ketoacidosis): (2) Hypothermia: (3) Elevated troponin I level: (4) Dyslipidemia: (5) Type 2 diabetes mellitus: (6) Pulmonary embolus: (7) DVT (deep venous thrombosis): (8) YOSI (acute kidney injury): (9) Self-care deficit: (10) Metabolic acidosis: (11) Encephalopathy: Plan Reason Critically Ill: 68 YOM presents with DKA and general feeling of weakness and myalgias. Imitation of insulin infusion, crystalloid resuscitation, and infectious work up performed. To ICU to monitor acid base status, hemodynamics and response to therapies. Neuro - [facility] ICU: + Acute metabolic encephalopathy - Encephalopathy at this time is likely metabolic in nature secondary to DKA and hypothermia - Head CT negative Cardiac - Shock, Elevated HsCTNI -- Shock Multifactorial - Hypovolemia most likely secondary to DKA at this time - He is hypothermic on arrival- with blood and urine cultures pending as well as tick borne . -Random cortisol, 7 patient has been using dexamethasone for a while as well Continue with vasopressor support to keep MAP greater than 65 --Elevated troponin Likely type II OK ECG with nonspecific T wave changes, which may just be related to electrolyte abnormalities- trend. - Previous atypical chest pain work-up was in negative EST and stress ECHO in 2009 Respiratory - Hx of PE and left lower extremity DVT - See Heme section below - no acute needs or opacities on imaging or concern of pneumonia CT chest 08/21/2023 personally reviewed: Focal bronchiectasis appreciated in the right lower lobe right next to the bony spur of the spine No pulmonary infiltrate No mediastinal lymphadenopathy GI - No acute needs at this time RENAL/LYTES - -- HAGMA Likely sec to lactic acidosis with ketoacidosis Continue with insulin drip until anion gap closes Decreasing blood glucose no more than 100 in an hour Replace potassium IV when potassium level between 3.3-5.3 BMP every 4 hours Continue with IV fluids - No acute needs - Urine culture pending- follow ENDO - DMII - DKA likely secondary to non-compliance- however with myalgias and subjective fevers at home HEME - -- Myelomma, Hx PE/DVT - has had compliance issues in regarding making his appointments for chemo --PE/DVT Lovenox weight based initiated every 12 hours by admitting service- continue at this time- can transition to oral agent once encephalopathy has improved Doppler lower extremity 05/2023 positive for clot in the left lower extremity ID - SIRS - Technically meets SIRS criteria- however immunocompromised - Is without leukocytosis, PCT negative, CT chest negative for acute process - He is however hypothermic and with reports of n/v/diarrhea- has had imaging of head, chest, abdomen and pelvis which is negative for acute process or any enteritis/colitis- Has received 1 dose of Cefepime in EMD - Will hold on further antibiotics at this time and follow fever curve, stool burden, and exam- low threshold to re-initiate broad spectrum - Viral respiratory panel negative for tested viruses --Prophylaxis VTE: Therapeutic Lovenox GI: None Lines: Left radial, peripheral Diet: N.p.o. Plan: In/out: +9 L, urine output 1900 mL Anion gap has been closed today early in the morning. Is still metabolic acidotic a little bit compared to before. Will try to see if they are able to bridge IV insulin to subcu. Given that the patient was on dexamethasone 4 mg on a daily basis at home. Will give 50 mg of hydrocortisone now and then 6 mg of DEXA starting tomorrow. CBC is pending from today. I expect a drop in hemoglobin given that he is +9 L since coming to the hospital. His baseline hemoglobin is around 11-12 Change IV fluids to D5 NS. Will get social work involved to see whether the patient is able to take care of himself alone at home. I have personally spent 44 minutes of critical care time in the direct management of this patient. This is a life/limb threatening event. This includes time spent evaluating patient, direct bedside care, chart review, placing orders, interpretation of diagnostic studies, discussion with consultants, patient, and family members, as well as other required patient management activities. This time is exclusive of all separately billable procedures, and teaching time and separate from and in addition to any other critical care service time. Thank you for allowing us to participate in the care of this patient. Please refer to my attending physician's documentation for any further recommendations. Admission and Anticipated Discharge Date Admission Date: August 21, 2023 Subjective Patient seen and examined at bedside. No acute distress, no events overnight He was still on insulin drip He is awake and oriented to self and place. Denied any chest pain, no shortness of breath. No abdominal pain Was on Levophed 0.05 at time of examination with map in the mid 60s. Review of Systems 2 Review of Systems: All systems reviewed & are unremarkable except as noted in Subjective and Unobtainable due to mental health condition Physical Exam 2 Physical Exam: Constitutional: No acute distress HEENT: EOMI, PERRLA Respiratory system: Good air entry bilaterally, no wheeze, no rhonchi, mild crackles bilateral lower lobes CVS: S1-S2 positive, no murmurs or gallops Abdomen: Soft, nontender, nondistended, positive bowel sounds x4, obese Extremities: +2 pulses bilaterally radialis/ dorsalis pedis, no cyanosis, +2 edema LLL, +1 RLE Neuro: Awake alert oriented to self and place Psych: Normal mood and affect G/U: + [place] Skin: no rashes, warm and dry Lymphatic: no cervical or axillary lymphadenopathy Results & Data Results & Data Vital Signs (Past 12 Hours) Vital Signs Temp Pulse Pulse Resp BP BP BP 08/22/23 07:19 36.7 C 94 H 21 08/22/23 06:45 36.5 C 93 H 20 08/22/23 06:30 36.5 C 95 H 19 08/22/23 06:15 36.5 C 94 H 17 08/22/23 06:00 36.4 C L 95 H 18 08/22/23 05:45 36.4 C L 96 H 19 08/22/23 05:30 36.4 C L 99 H 18 08/22/23 05:15 36.4 C L 95 H 16 08/22/23 05:00 36.4 C L 91 H 14 08/22/23 04:45 36.4 C L 97 H 16 08/22/23 04:30 36.4 C L 91 H 17 08/22/23 04:15 36.5 C 96 H 17 08/22/23 04:00 36.5 C 92 H 08/22/23 03:45 101 H 22 08/22/23 03:30 102/68 08/22/23 03:30 111 H 08/22/23 03:15 99 H 08/22/23 03:00 98 H 18 08/22/23 02:45 100 H 20 08/22/23 02:30 84/63 L 08/22/23 02:30 101 H 18 08/22/23 02:15 36.3 C L 101 H 17 08/22/23 02:01 90/57 L 08/22/23 02:01 36.3 C L 105 H 21 08/22/23 02:00 36.3 C L 103 H 17 08/22/23 01:18 95 H 08/21/23 23:00 96/61 L 08/21/23 23:00 36.4 C L 97 H 20 08/21/23 22:45 36.4 C L 94 H 22 08/21/23 22:30 106/56 L 08/21/23 22:30 36.5 C 93 H 16 08/21/23 22:15 36.5 C 103 H 16 08/21/23 22:15 86/74 L 08/21/23 22:12 85/74 L 08/21/23 22:12 36.5 C 99 H 19 08/21/23 22:00 36.5 C 98 H 20 08/21/23 21:45 36.4 C L 97 H 15 08/21/23 21:30 36.4 C L 97 H 20 08/21/23 21:15 36.4 C L 97 H 18 08/21/23 21:00 36.4 C L 88 18 96/57 L 08/21/23 20:30 36.2 C L 84 20 97/53 L 08/21/23 20:01 36.3 C L 20 98/55 L 08/21/23 20:00 96 H 20 91/53 L 08/21/23 19:47 95 H 18 98/55 L 08/21/23 19:35 80/53 L 08/21/23 19:34 97 H 18 78/56 L Pulse Ox O2 Del Method 08/22/23 07:19 100 Room Air 08/22/23 06:45 98 08/22/23 06:30 98 08/22/23 06:15 97 08/22/23 06:00 97 08/22/23 05:45 99 08/22/23 05:30 99 08/22/23 05:15 100 08/22/23 05:00 99 08/22/23 04:45 98 08/22/23 04:30 99 08/22/23 04:15 98 08/22/23 04:00 99 08/22/23 03:45 08/22/23 03:30 08/22/23 03:30 99 08/22/23 03:15 98 08/22/23 03:00 99 08/22/23 02:45 98 08/22/23 02:30 08/22/23 02:30 99 08/22/23 02:15 99 08/22/23 02:01 08/22/23 02:01 99 08/22/23 02:00 99 08/22/23 01:18 08/21/23 23:00 08/21/23 23:00 99 Room Air 08/21/23 22:45 99 08/21/23 22:30 08/21/23 22:30 99 Room Air 08/21/23 22:15 99 08/21/23 22:15 08/21/23 22:12 08/21/23 22:12 99 08/21/23 22:00 99 08/21/23 21:45 99 08/21/23 21:30 99 08/21/23 21:15 99 08/21/23 21:00 98 Room Air 08/21/23 20:30 100 Room Air 08/21/23 20:01 100 Room Air 08/21/23 20:00 85 L Room Air 08/21/23 19:47 95 Room Air 08/21/23 19:35 08/21/23 19:34 97 Room Air Laboratory Results 08/21/23 15:12 08/22/23 05:54 Coding Level of Care Code 64902 CRITICAL CARE 1ST 30-74M Diagnoses DKA (diabetic ketoacidosis) E13.10 Diabetes mellitus complication detail: without coma Diabetes mellitus type: other specified (including KEENA) Hypothermia T68.XXXA Encounter type: initial encounter Elevated troponin I level R79.89 Dyslipidemia E78.5 Type 2 diabetes mellitus E11.9 Pulmonary embolus I26.99 DVT (deep venous thrombosis) I82.409 YOSI (acute kidney injury) N17.9 Self-care deficit Z78.9 Metabolic acidosis E87.20 Encephalopathy G93.40 (1) DKA (diabetic ketoacidosis) Diabetes mellitus complication detail: without coma Diabetes mellitus type: o ther specified (including KEENA) Qualified Code(s): E13.10 - Other specified diabetes mellitus with ketoacidosis without coma (2) Hypothermia Encounter type: initial encounter Qualified Code(s): T68.XXXA - Hypothermia, initial encounter
[2023-08-22] MEDS ORDERED: SODIUM PHOSPHATE 3 MMOL/1 ML 5 ML VIAL IV ONE (07:50)
[2023-08-22] MEDS ORDERED: MAGNESIUM SULFATE / D5W 1 GM/100 ML BAG IV ONE (07:50)
[2023-08-22] MEDS: INSULIN ASPART PER UNIT CHARGE SC SCH ×5 (08:00→23:41)
[2023-08-22] MEDS: ENOXAPARIN 80 MG/0.8 ML SYR SQ SCH ×2 (08:04→19:48)
[2023-08-22] MEDS ORDERED: SODIUM PHOSPHATE 21 MMOL in SODIUM CHLORIDE 0.9% 500 ML IV ONE (08:15)
[2023-08-22] MEDS ORDERED: LANTUS PER UNIT CHARGE SC ONE ×4 (08:30→16:00)
[2023-08-22] MEDS ORDERED: STAT IV Infusion **Titration per Protocol STA (08:40)
[2023-08-22] MEDS: NOREPINEPHRINE/D5W 4 MG/250 ML PLCT IV SCH (08:49)
[2023-08-22] MEDS: POTASSIUM CHLORIDE 40 MEQ in D5W AND NSS 1,000 ML IV SCH ×2 (09:34→14:31)
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
[2023-08-22] MEDS ORDERED: HYDROCORTISONE SOD 50 MG in SYRINGE 0 ML IV ONE (10:00)
[2023-08-22 10:21] LABS: Magnesium 2.2 mg/dl (1.7-2.4); Potassium 4.4 mmol/L (3.5-5.1)
[2023-08-22 10:27] LABS: BUN Creatinine Ratio 37.4 (10-20); Creatinine Clr Calc Pharmacy 55.9 ml/min; Est GFR (African American) 68.5 ml/min; Est GFR (Non-African American) 59.1 ml/min; Phosphorus 1.8 mg/dl (2.5-4.9)
[2023-08-22 10:32] LABS: Basophils # (auto) 0.02 K/uL (0.00-0.20); Basophils % (auto) 0.4 %; Hematocrit (blood only) 30.4 % (42.0-52.0); Hemoglobin 11.4 g/dl (14.0-18.0); Immature Granulocytes # (auto) 0.07 K/uL (0.01-0.20); Immature Granulocytes % (auto) 1.4 %; Lymphocytes # (auto) 0.53 K/uL (1.20-3.40); Lymphocytes % (auto) 10.4 %; Mean Corpuscular Hemoglobin 32.7 pg (25.0-34.0); Mean Corpuscular Hgb Conc 37.5 g/dL (32.0-36.0); Mean Corpuscular Volume 87.1 fL (80.0-100.0); Mean Platelet Volume 10.8 fL (9.4-12.4); Monocytes # (auto) 0.36 K/uL (0.11-0.59); Monocytes % (auto) 7.1 %; Neutrophils % (auto) 80.7 %; Platelet Count 146 K/uL (130-400); RDW Coefficient of Variation 13.6 % (11.5-14.5); RDW Standard Deviation 43.3 fL (36.4-46.3); Red Blood Count 3.49 M/uL (4.70-6.10); White Blood Count 5.08 K/ul (4.8-10.8)
--- NOTE | 2023-08-22 12:17 | Electrocardiogram Report ---
Test Reason : Blood Pressure : / mmHG Vent. Rate : 087 BPM Atrial Rate : 087 BPM P-R Int : 164 ms QRS Dur : 074 ms QT Int : 372 ms P-R-T Axes : 047 -33 050 degrees QTc Int : 447 ms Normal sinus rhythm Left axis deviation Low voltage QRS Abnormal ECG When compared with ECG of 21-AUG-2023 14:52, Nonspecific T wave abnormality no longer evident in Inferior leads Nonspecific T wave abnormality, improved in Lateral leads Confirmed by Marky Enciso ([id number]) on 08/22/2023 12:17:48 PM Referred By: REFERRED SELF Confirmed By:Benedicto Enciso
[2023-08-22] MEDS ORDERED: HALOPERIDOL LACTATE 5 MG/ML 1 ML VIAL IV STA (12:59)
[2023-08-22] MEDS ORDERED: D5NSS + 20MEQ KCL 20 MEQ/1,000 ML BAG IV SCH (13:00)
[2023-08-22] MEDS ORDERED: HALOPERIDOL LACTATE 5 MG/ML 1 ML VIAL ONE (13:03)
--- NOTE | 2023-08-22 13:45 | Palliative Care Consultation ---
Date of Consultation August 22, 2023 Assessment & Plan (1) Cancer related pain: (2) Weakness generalized: (3) Advanced care planning/counseling discussion: Attempted to call pt mother who is SDM. His brother "Amor" answered phone at the mother's home and advised she is currently admitted to [facility] with infection in leg from her melanoma. Amor states he does not know anyone else who can help with Justino's care and was very clear he (amor) is not the person to ask either. Updated primary team (4) Palliative care encounter: (5) Closed compression fracture of L1 vertebra: Encounter type: subsequent encounter (6) Osteolytic lesion: (7) AMS (altered mental status): Altered mental status type: unspecified Qualified Code(s): R41.82 - Altered mental status, unspecified (8) DKA (diabetic ketoacidosis): Diabetes mellitus complication detail: without coma Diabetes mellitus type: other specified (including KEENA) Qualified Code(s): E13.10 - Other specified diabetes mellitus with ketoacidosis without coma (9) Self-care deficit: (10) Palliative care by specialist: Met with pt/family. Provided overview of Palliative Medicine, a subspecialty that provides specialized medical care for people living with a serious illness by offering a focus on quality of life. Palliative Medicine is often conflated with hospice: I advised patient/family that Palliative and hospice can be partners but we are not the same. It is important to understand the difference so that we may be informed, and not afraid. Palliative Medicine works to improve QOL through reduction of symptom burden/more control over their illness, for both the patient and family. Palliative medicine clinicians are board certified, specially-trained and another member of the patient's medical care team. We often provide an extra layer of support because our care is based on the needs of the patient, not the prognosis; as such, it's appropriate at any age/advancing stage of a serious illness and can be provided along with curative treatment. Palliative Medicine clinicians are also trained in advanced communication methodologies, to facilitate complex discussions about advanced illness planning, which are needed to help assure that the treatment choices match the patient's goals, aka delivering Goal Concordant care. Finally, we discussed that hospice is a visiting nurse service that focuses on care delivered at the very end of life for patients with terminal illness, with life expectancy less than 6 month. Plan Date of Consultation August 22, 2023 Assessment & Plan (1) Weakness generalized: Multifactorial in the setting of chronic medical problems and acute medical conditions. (2) Cancer related pain: Initially denied pain, did note some left knee pain later in the morning. Not currently on pain regimen, would add pain regimen if he continues to complain of pain. (3) Self-care deficit: Questionable compliance with medications at home. Unsure of what support he has with family/friends in the area. (4) Advanced care planning/counseling discussion: Advanced care discussion with pt at bedside. Only oriented to person, he does not have decision making capacity. Attempted to call pt mother that is only contact listed. Brother "Amor" answered the phone and informed us that mother is currently admitted to [facility] as well. Was not able to find any other contact for pt. Will attempt to f/u with pt as mental as encephalopathy improves. Updated primary team. (5) Palliative care by specialist: Met with pt. Provided overview of Palliative Medicine, a subspecialty that provides specialized medical care for people living with a serious illness by offering a focus on quality of life. Palliative Medicine is often conflated with hospice: I advised patient/family that Palliative and hospice can be partners but we are not the same. It is important to understand the difference so that we may be informed, and not afraid. Palliative Medicine works to improve QOL through reduction of symptom burden/more control over their illness, for both the patient and family. Palliative medicine clinicians are board certified, specially-trained and another member of the patient's medical care team. We often provide an extra layer of support because our care is based on the needs of the patient, not the prognosis; as such, it's appropriate at any age/advancing stage of a serious illness and can be provided along with curative treatment. Palliative Medicine clinicians are also trained in advanced communication methodologies, to facilitate complex discussions about advanced illness planning, which are needed to help assure that the treatment choices match the patient's goals, aka delivering Goal Concordant care. Finally, we di scussed that hospice is a visiting nurse service that focuses on care delivered at the very end of life for patients with terminal illness, with life expectancy less than 6 month. (6) DKA (diabetic ketoacidosis): Inuslin gtt in ICU, management as per primary team. Diabetes mellitus complication detail: without coma Diabetes mellitus type: other specified (including KEENA) Qualified Code(s): E13.10 - Other specified diabetes mellitus with ketoacidosis without coma (7) Encephalopathy: Likely metabolic encephalopathy in the setting of acute illness. Plan Complex, chronically at times critically ill patient with limited insight and lack of adherence with medical regimens, missing appointments and currently no clear decision maker. He is not decisional. He has histiriucally had low health literacy and limited insight however in past palliative medicine consult History of Present Illness Requesting Physician: Dr. Callejas Attending Physician: Otto Bennett MD History of Present Illness 68 year old male with a past medical history of light chain myeloma with metastasis, DM2, HTN, history of DVT/PE presenting with DKA. Had appointment yesterday for Xgeva infusion and was sent to ED for hyperglycemia and hypot ension. He has missed a number of appointments in the past for infusions. Unclear how compliant he is at home with medications. Currently admitted to the ICU and remains of insulin gtt and on Levophed for hypotension.. Pt was seen at bedside this morning. Orientated to person, but not to place or time. Does not note any complaints. Does not have a great understanding as to what he is currently admitted. Oriented to person, but not place or time. drifting off at times, speech garbled. sometimes mumbling. cannot stay focused. there is no family present Allergies Allergy/AdvReac Type Severity Reaction Status Date / Time amoxicillin [From Augmentin] Allergy Intermediate SWELLING Verified 08/21/23 16:03 AROUND EYES clavulanic acid Allergy Intermediate SWELLING Verified 08/21/23 16:03 AROUND THE EYES Penicillins Allergy Intermediate AUGMENTIN Verified 08/21/23 16:03 - SWELLING AROUND THE EYES diflunisal AdvReac Intermediate VOMITING Verified 08/21/23 16:03 valsartan [From Diovan] AdvReac Intermediate Vomiting Verified 08/21/23 16:03 Home Medications Medication Instructions Recorded Confirmed Type atorvastatin 40 mg tablet (Lipitor) 40 mg PO HS 08/09/19 08/21/23 History cholecalciferol (vitamin D3) 25 1,000 units PO DAILY 01/27/20 08/21/23 History mcg (1,000 unit) tablet multivitamin (Multiple Vitamins 1 tab PO DAILY 01/27/20 08/21/23 History tablet) blood sugar diagnostic (Accu-Chek #100 ea 05/23/22 08/21/23 Rx Josephine Plus test strips) diclofenac sodium 75 mg 75 mg PO BID PRN Pain 08/05/22 08/21/23 History tablet,delayed release pantoprazole 40 mg tablet,delayed 40 mg PO QAM #60 tabs 08/24/22 08/21/23 Rx release metoprolol tartrate 50 mg tablet 50 mg PO BID #180 tabs 10/31/22 08/21/23 Rx pen needle, diabetic 32 gauge x #100 ea 11/14/22 08/21/23 Rx 5/32" (BD Ultra-Fine Augustina Pen Needle) polyethylene glycol 3350 17 gram 17 g PO DAILY PRN Constipation 11/22/22 08/21/23 History oral powder packet (Miralax) spironolactone 25 1 tab PO DAILY #90 tabs 04/04/23 08/21/23 Rx mg-hydrochlorothiazide 25 mg tablet acyclovir 400 mg tablet 400 mg PO BID 08/21/23 08/21/23 History dexamethasone 4 mg tablet 4 mg PO DAILY 08/21/23 08/21/23 History hydrochlorothiazide 25 mg tablet 25 mg PO DAILY 08/21/23 08/21/23 History lisinopril 10 mg tablet 10 mg PO DAILY 08/21/23 08/21/23 History metformin 500 mg tablet 1,000 mg PO QPM 08/21/23 08/21/23 History metformin 500 mg tablet 500 mg PO QAM 08/21/23 08/21/23 History Patient History Medical History Edema Weakness generalized Cancer related pain Advanced care planning/counseling discussion Palliative care encounter Light chain myeloma Metabolic encephalopathy Elevated troponin level Hypercalcemia Acute renal failure Acute back pain Fatigue GE reflux Hypertension Gout Vitamin D deficiency Obstructive sleep apnea Dyslipidemia Type 2 diabetes mellitus Tendon laceration Laceration of multiple sites of left hand and fingers Chest pain Bronchitis Surgical History History of surgery on arm Family History Father Alzheimer disease DyslipidemiaMother Diabetes Coronary heart diseaseOther Family history non-contributory Social History (Reviewed 08/21/23 @ 14:56 by NANETTE Brady Smoking Status: Unknown if ever smoked Second Hand Exposure: No; Do You Dip or Chew Tobacco: No; Preferred Language: Ukrainian Communication Ability: Effective Director Compliance Required: No Beliefs That Will Affect Care: None marital status: Single marital status details: no children Current Living Situation: Family Current Living Situation Comment: lives with mother current occupational status: retired Feels Safe at Home: Yes Assistive Devices: Crutches Review of Systems Review of Systems: Unobtainable due to cognitive status As per above Physical Exam Physical Exam: Constitutional: well-appearing, no acute distress but noted to be shaking HEENT: bitemp wasting; no conjunctival injection CV: regular rhythm, no murmur appreciated, extremities well-perfused, no LE edema Resp: CTABL, no wheezes/rales/rhonchi appreciated, no increased work of breathing GI: soft, nondistended, nontender, BS normoactive MSK: no gross deformities appreciated Skin: warm, dry, no rash appreciated Neuro: awake, oriented to person, drifting off, confused at times with garbled speech cannot follow commands Results & Data Vital Signs (Past 12 Hours) Vital Signs Temp Pulse Resp BP Pulse Ox O2 Del Method 08/22/23 07:19 36.7 C 94 H 21 100 Room Air 08/22/23 06:45 36.5 C 93 H 20 98 08/22/23 06:30 36.5 C 95 H 19 98 08/22/23 06:15 36.5 C 94 H 17 97 08/22/23 06:00 36.4 C L 95 H 18 97 08/22/23 05:45 36.4 C L 96 H 19 99 08/22/23 05:30 36.4 C L 99 H 18 99 08/22/23 05:15 36.4 C L 95 H 16 100 08/22/23 05:00 36.4 C L 91 H 14 99 08/22/23 04:45 36.4 C L 97 H 16 98 08/22/23 04:30 36.4 C L 91 H 17 99 08/22/23 04:15 36.5 C 96 H 17 98 08/22/23 04:00 36.5 C 92 H 16 99 08/22/23 03:45 101 H 22 01/23/24 03:30 102/68 08/22/23 03:30 111 H 17 99 08/22/23 03:15 99 H 16 98 08/22/23 03:00 98 H 18 99 08/22/23 02:45 100 H 20 98 08/22/23 02:30 84/63 L 08/22/23 02:30 101 H 18 99 08/22/23 02:15 36.3 C L 101 H 17 99 08/22/23 02:01 90/57 L 08/22/23 02:01 36.3 C L 105 H 21 99 08/22/23 02:00 36.3 C L 103 H 17 99 08/22/23 01:18 95 H 08/21/23 23:00 96/61 L 08/21/23 23:00 36.4 C L 97 H 20 99 Room Air 08/21/23 22:45 36.4 C L 94 H 22 99 08/21/23 22:30 106/56 L 08/21/23 22:30 36.5 C 93 H 16 99 Room Air 08/21/23 22:15 36.5 C 103 H 16 99 08/21/23 22:15 86/74 L 08/21/23 22:12 85/74 L 08/21/23 22:12 36.5 C 99 H 19 99 08/21/23 22:00 36.5 C 98 H 20 99 08/21/23 21:45 36.4 C L 97 H 15 99 Laboratory Results data reviewed Diagnostic Findings data reviewed History of Present Illness Attending Physician: Otto Bennett MD History of Present Illness Date of Consultation August 22, 2023 Assessment & Plan (1) Weakness generalized: Multifactorial in the setting of chronic medical problems and acute medical conditions. (2) Cancer related pain: Initially denied pain, did note some left knee pain later in the morning. Not currently on pain regimen, would add pain regimen if he continues to complain of pain. (3) Self-care deficit: Questionable compliance with medications at home. Unsure of what support he has with family/friends in the area. (4) Advanced care planning/counseling discussion: Advanced care discussion with pt at bedside. Only oriented to person, he does not have decision making capacity. Attempted to call pt mother that is only contact listed. Brother "Amor" answered the phone and informed us that mother is currently admitted to [facility] as well. Was not able to find any other contact for pt. Will attempt to f/u with pt as mental as encephalopathy improves. Updated primary team. (5) Palliative care by specialist: Met with pt. Provided overview of Palliative Medicine, a subspecialty that provides specialized medical care for people living with a serious illness by offering a focus on quality of life. Palliative Medicine is often conflated with hospice: I advised patient/family that Palliative and hospice can be partners but we are not the same. It is important to understand the difference so that we may be informed, and not afraid. Palliative Medicine works to improve QOL through reduction of symptom burden/more control over their illness, for both the patient and family. Palliative medicine clinicians are board certified, specially-trained and another member of the patient's medical care team. We often provide an extra layer of support because our care is based on the needs of the patient, not the prognosis; as such, it's appropriate at any age/advancing stage of a serious illness and can be provided along with curative treatment. Palliative Medicine clinicians are also trained in advanced communication methodologies, to facilitate complex discussions about advanced illness planning, which are needed to help assure that the treatment choices match the patient's goals, aka delivering Goal Concordant care. Finally, we discussed that hospice is a visiting nurse service that focuses on care delivered at the very end of life for patients with terminal illness, with life expectancy less than 6 month. (6) DKA (diabetic ketoacidosis): Inuslin gtt in ICU, management as per primary team. Diabetes mellitus complication detail: without coma Diabetes mellitus type: other specified (including KEENA) Qualified Code(s): E13.10 - Other specified diabetes mellitus with ketoacidosis without coma (7) Encephalopathy: Likely metabolic encephalopathy in the setting of acute illness. Plan Complex, chronically at times critically ill patient with limited insight and lack of adherence with medical regimens, missing appointments and currently no clear decision maker. He is not decisional. He has histiriucally had low health literacy and limited insight however in past palliative medicine consult History of Present Illness Requesting Physician: Dr. Callejas Attending Physician: Otto Bennett MD History of Present Illness 68 year old male with a past medical history of light chain myeloma with metastasis, DM2, HTN, history of DVT/PE presenting with DKA. Had appointment yesterday for Xgeva infusion and was sent to ED for hyperglycemia and hypotension. He has missed a number of appointments in the past for infusions. Unclear how compliant he is at home with medications. Currently admitted to the ICU and remains of insulin gtt and on Levophed for hypotension.. Pt was seen at bedside this morning. Orientated to person, but not to place or time. Does not note any complaints. Does not have a great understanding as to what he is currently admitted. Oriented to person, but not place or time. drifting off at times, speech garbled. sometimes mumbling. cannot stay focused. there is no family present Allergies Allergy/AdvReac Type Severity Reaction Status Date / Time amoxicillin [From Augmentin] Allergy Intermediate SWELLING Verified 08/21/23 16:03 AROUND EYES clavulanic acid Allergy Intermediate SWELLING Verified 08/21/23 16:03 AROUND THE EYES Penicillins Allergy Intermediate AUGMENTIN Verified 08/21/23 16:03 - SWELLING AROUND THE EYES diflunisal AdvReac Intermediate VOMITING Verified 08/21/23 16:03 valsartan [From Diovan] AdvReac Intermediate Vomiting Verified 08/21/23 16:03 Home Medications Medication Instructions Recorded Confirmed Type atorvastatin 40 mg tablet (Lipitor) 40 mg PO HS 08/09/19 08/21/23 History cholecalciferol (vitamin D3) 25 1,000 units PO DAILY 01/27/20 08/21/23 History mcg (1,000 unit) tablet multivitamin (Multiple Vitamins 1 tab PO DAILY 01/27/20 08/21/23 History tablet) blood sugar diagnostic (Accu-Chek #100 ea 05/23/22 08/21/23 Rx Josephine Plus test strips) diclofenac sodium 75 mg 75 mg PO BID PRN Pain 08/05/22 08/21/23 History tablet,delayed release pantoprazole 40 mg tablet,delayed 40 mg PO QAM #60 tabs 08/24/22 08/21/23 Rx release metoprolol tartrate 50 mg tablet 50 mg PO BID #180 tabs 10/31/22 08/21/23 Rx pen needle, diabetic 32 gauge x #100 ea 11/14/22 08/21/23 Rx 5/32" (BD Ultra-Fine Augustina Pen Needle) polyethylene glycol 3350 17 gram 17 g PO DAILY PRN Constipation 11/22/22 08/21/23 History oral powder packet (Miralax) spironolactone 25 1 tab PO DAILY #90 tabs 04/04/23 08/21/23 Rx mg-hydrochlorothiazide 25 mg tablet acyclovir 400 mg tablet 400 mg PO BID 08/21/23 08/21/23 History dexamethasone 4 mg tablet 4 mg PO DAILY 08/21/23 08/21/23 History hydrochlorothiazide 25 mg tablet 25 mg PO DAILY 08/21/23 08/21/23 History lisinopril 10 mg tablet 10 mg PO DAILY 08/21/23 08/21/23 History metformin 500 mg tablet 1,000 mg PO QPM 08/21/23 08/21/23 History metformin 500 mg tablet 500 mg PO QAM 08/21/23 08/21/23 History Patient History Medical History Edema Weakness generalized Cancer related pain Advanced care planning/counseling discussion Palliative care encounter Light chain myeloma Metabolic encephalopathy Elevated troponin level Hypercalcemia Acute renal failure Acute back pain Fatigue GE reflux Hypertension Gout Vitamin D deficiency Obstructive sleep apnea Dyslipidemia Type 2 diabetes mellitus Tendon laceration Laceration of multiple sites of left hand and fingers Chest pain Bronchitis Surgical History History of surgery on arm Family History Father Alzheimer disease DyslipidemiaMother Diabetes Coronary heart diseaseOther Family history non-contributory Social History Smoking Status: Unknown if ever smoked Second Hand Exposure: No; Do You Dip or Chew Tobacco: No; Preferred Language: Ukrainian Communication Ability: Effective Director Compliance Required: No Beliefs That Will Affect Care: None marital status: Single marital status details: no children Current Living Situation: Family Current Living Situation Comment: lives with mother current occupational status: retired Feels Safe at Home: Yes Assistive Devices: Crutches Review of Systems Review of Systems: Unobtainable due to cognitive status As per above Physical Exam Physical Exam: Constitutional: well-appearing, no acute distress but noted to be shaking HEENT: bitemp wasting; no conjunctival injection CV: regular rhythm, no murmur appreciated, extremities well-perfused, no LE edema Resp: CTABL, no wheezes/rales/rhonchi appreciated, no increased work of breathing GI: soft, nondistended, nontender, BS normoactive MSK: no gross deformities appreciated Skin: warm, dry, no rash appreciated Neuro: awake, oriented to person, drifting off, confused at times with garbled speech cannot follow commands Results & Data Vital Signs (Past 12 Hours) Vital Signs Temp Pulse Resp BP Pulse Ox O2 Del Method 08/22/23 07:19 36.7 C 94 H 21 100 Room Air 08/22/23 06:45 36.5 C 93 H 20 98 08/22/23 06:30 36.5 C 95 H 19 98 08/22/23 06:15 36.5 C 94 H 17 97 08/22/23 06:00 36.4 C L 95 H 18 97 08/22/23 05:45 36.4 C L 96 H 19 99 08/22/23 05:30 36.4 C L 99 H 18 99 08/22/23 05:15 36.4 C L 95 H 16 100 08/22/23 05:00 36.4 C L 91 H 14 99 08/22/23 04:45 36.4 C L 97 H 16 98 08/22/23 04:30 36.4 C L 91 H 17 99 08/22/23 04:15 36.5 C 96 H 17 98 08/22/23 04:00 36.5 C 92 H 16 99 08/22/23 03:45 101 H 22 08/22/23 03:30 102/68 08/22/23 03:30 111 H 17 99 08/22/23 03:15 99 H 16 98 08/22/23 03:00 98 H 18 99 08/22/23 02:45 100 H 20 98 08/22/23 02:30 84/63 L 08/22/23 02:30 101 H 18 99 08/22/23 02:15 36.3 C L 101 H 17 99 08/22/23 02:01 90/57 L 08/22/23 02:01 36.3 C L 105 H 21 99 08/22/23 02:00 36.3 C L 103 H 17 99 08/22/23 01:18 95 H 08/21/23 23:00 96/61 L 08/21/23 23:00 36.4 C L 97 H 20 99 Room Air 08/21/23 22:45 36.4 C L 94 H 22 99 08/21/23 22:30 106/56 L 08/21/23 22:30 36.5 C 93 H 16 99 Room Air 08/21/23 22:15 36.5 C 103 H 16 99 08/21/23 22:15 86/74 L 08/21/23 22:12 85/74 L 08/21/23 22:12 36.5 C 99 H 19 99 08/21/23 22:00 36.5 C 98 H 20 99 08/21/23 21:45 36.4 C L 97 H 15 99 Laboratory Results data reviewed Diagnostic Findings data reviewed Allergies Allergy/AdvReac Type Severity Reaction Status Date / Time amoxicillin [From Augmentin] Allergy Intermediate SWELLING Verified 08/21/23 16 :03 AROUND EYES clavulanic acid Allergy Intermediate SWELLING Verified 08/21/23 16:03 AROUND THE EYES Penicillins Allergy Intermediate AUGMENTIN Verified 08/21/23 16:03 - SWELLING AROUND THE EYES diflunisal AdvReac Intermediate VOMITING Verified 08/21/23 16:03 valsartan [From Diovan] AdvReac Intermediate Vomiting Verified 08/21/23 16:03 Home Medications Medication Instructions Recorded Confirmed Type atorvastatin 40 mg tablet (Lipitor) 40 mg PO HS 08/09/19 08/21/23 History cholecalciferol (vitamin D3) 25 1,000 units PO DAILY 01/27/20 08/21/23 History mcg (1,000 unit) tablet multivitamin (Multiple Vitamins 1 tab PO DAILY 01/27/20 08/21/23 History tablet) blood sugar diagnostic (Accu-Chek #100 ea 05/23/22 08/21/23 Rx Josephine Plus test strips) diclofenac sodium 75 mg 75 mg PO BID PRN Pain 08/05/22 08/21/23 History tablet,delayed release pantoprazole 40 mg tablet,delayed 40 mg PO QAM #60 tabs 08/24/22 08/21/23 Rx release metoprolol tartrate 50 mg tablet 50 mg PO BID #180 tabs 10/31/22 08/21/23 Rx pen needle, diabetic 32 gauge x #100 ea 11/14/22 08/21/23 Rx 5/32" (BD Ultra-Fine Augustina Pen Needle) polyethylene glycol 3350 17 gram 17 g PO DAILY PRN Constipation 11/22/22 08/21/23 History oral powder packet (Miralax) spironolactone 25 1 tab PO DAILY #90 tabs 04/04/23 08/21/23 Rx mg-hydrochlorothiazide 25 mg tablet acyclovir 400 mg tablet 400 mg PO BID 08/21/23 08/21/23 History dexamethasone 4 mg tablet 4 mg PO DAILY 08/21/23 08/21/23 History hydrochlorothiazide 25 mg tablet 25 mg PO DAILY 08/21/23 08/21/23 History lisinopril 10 mg tablet 10 mg PO DAILY 08/21/23 08/21/23 History metformin 500 mg tablet 1,000 mg PO QPM 08/21/23 08/21/23 History metformin 500 mg tablet 500 mg PO QAM 08/21/23 08/21/23 History Patient History Medical History Edema Weakness generalized Cancer related pain Advanced care planning/counseling discussion Palliative care encounter Light chain myeloma Metabolic encephalopathy Elevated troponin level Hypercalcemia Acute renal failure Acute back pain Fatigue GE reflux Hypertension Gout Vitamin D deficiency Obstructive sleep apnea Dyslipidemia Type 2 diabetes mellitus Tendon laceration Laceration of multiple sites of left hand and fingers Chest pain Bronchitis Surgical History History of surgery on arm Family History Father Alzheimer disease Dyslipidemia Mother Diabetes Coronary heart disease Other Family history non-contributory Social History Smoking Status: Unknown if ever smoked Second Hand Exposure: No; Do You Dip or Chew Tobacco: No; Preferred Language: Ukrainian Communication Ability: Effective Director Compliance Required: No Beliefs That Will Affect Care: None marital status: Single marital status details: no children Current Living Situation: Family Current Living Situation Comment: lives with mother current occupational status: retired Feels Safe at Home: Yes Assistive Devices: Crutches Results & Data Vital Signs (Past 12 Hours) Vital Signs Temp Pulse Resp BP Pulse Ox O2 Del Method 08/22/23 13:31 36.9 C 96 H 22 08/22/23 13:15 36.9 C 94 H 16 08/22/23 13:03 112/73 08/22/23 13:03 36.9 C 97 H 18 08/22/23 13:01 36.9 C 98 H 24 08/22/23 12:45 100 H 22 08/22/23 12:30 97 H 19 99 Room Air 08/22/23 12:23 36.8 C 95 H 18 97 Room Air 08/22/23 12:23 132/58 L 08/22/23 12:15 36.7 C 104 H 23 98 08/22/23 12:01 36.7 C 93 H 20 98 08/22/23 11:45 36.6 C 88 20 99 08/22/23 11:30 36.6 C 94 H 16 98 08/22/23 11:27 36.6 C 08/22/23 11:15 36.6 C 89 16 99 08/22/23 11:01 90 16 100 08/22/23 10:30 89 17 100 08/22/23 10:01 90 20 99 08/22/23 09:31 86 17 99 08/22/23 09:10 89 20 98 Room Air 08/22/23 09:10 89/52 L 08/22/23 09:00 92 H 18 99 08/22/23 08:32 94 H 20 96 08/22/23 08:32 79/41 L 08/22/23 08:30 92 H 17 99 08/22/23 08:01 36.8 C 102 H 24 97 08/22/23 08:00 Room Air 08/22/23 08:00 36.6 C 08/22/23 08:00 94 H 08/22/23 07:30 36.7 C 104 H 19 99 08/22/23 07:19 36.7 C 94 H 21 100 Room Air 08/22/23 06:45 36.5 C 93 H 20 98 08/22/23 06:30 36.5 C 95 H 19 98 08/22/23 06:15 36.5 C 94 H 17 97 08/22/23 06:00 36.4 C L 95 H 18 97 08/22/23 05:45 36.4 C L 96 H 19 99 08/22/23 05:30 36.4 C L 99 H 18 99 08/22/23 05:15 36.4 C L 95 H 16 100 08/22/23 05:00 36.4 C L 91 H 14 99 08/22/23 04:45 36.4 C L 97 H 16 98 08/22/23 04:30 36.4 C L 91 H 17 99 08/22/23 04:15 36.5 C 96 H 17 98 08/22/23 04:00 36.5 C 92 H 16 99 08/22/23 03:45 101 H 22 08/22/23 03:30 102/68 08/22/23 03:30 111 H 17 99 08/22/23 03:15 99 H 16 98 08/22/23 03:00 98 H 18 99 08/22/23 02:45 100 H 20 98 08/22/23 02:30 84/63 L 08/22/23 02:30 101 H 18 99 08/22/23 02:15 36.3 C L 101 H 17 99 08/22/23 02:01 90/57 L 08/22/23 02:01 36.3 C L 105 H 21 99 08/22/23 02:00 36.3 C L 103 H 17 99 PG Care Time/CCT Total # of Minutes Spent Total Time Spent: 75 Total Time Spent with Patient: Total time spent is greater than 50% in coordination of care (as documented) at patient's floor/unit and/or counseling patient: I spent 75 minutes overall addressing this case: 20 min in medical data review/discussion with referring provider(s) and/or preparation for the visit 20 min in direct interaction with the patient/exam 10 min in Advance Care Planning/Goals of Care discussions as detailed above in note (must be >16min) with brother Amor who states there is no other SDM 10 min in subsequent review and synthesis of assessment and plan 15 min communicating with other providers regarding the patient's case: [place] [address] IN/OBS CONSULT LVL 5,80M Patient Type New History Comprehensive Exam Comprehensive Medical Decision Making High Complexity Diagnoses Cancer related pain G89.3 Weakness generalized R53.1 Advanced care planning/counseling discussion Z71.89 Palliative care encounter Z51.5 Closed compression fracture of L1 vertebra S32.010A Encounter type: subsequent encounter Osteolytic lesion M89.50 AMS (altered mental status) R41.82 Altered mental status type: unspecified DKA (diabetic ketoacidosis) E13.10 Diabetes mellitus complication detail: without coma Diabetes mellitus type: other specified (including KEENA) Self-care deficit Z78.9 Palliative care by specialist Z51.5
--- NOTE | 2023-08-22 14:11 | Hospitalist Progress Note ---
Date of Service August 22, 2023 Assessment & Plan (1) DKA (diabetic ketoacidosis): Plan: Now resolved. Anion gap has closed. Glucose 157 this morning. He remains on an insulin drip however. Critical care management for now (2) Shock: Plan: Continue fluid resuscitation and pressor support. Wean pressors off as tolerated. Await final blood culture results (3) Volume depletion: Plan: IV fluid resuscitation. Monitor intake and output (4) Elevated troponin: Plan: Probably supply/demand mismatch. Await cardiac echo results. 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 has missed several transfusions in the previous months. Oncology follow-up and management (6) Pathological compression fracture of spine: Plan: Not new. Pain control measures. (7) Pulmonary embolus: Plan: In the past. Due to DVT. Eliquis therapy in the past but this the patient is noncompliant. Continue prophylaxis (8) Hypertension: Plan: Currently hypotensive on pressor support. Blood cultures negative to date. He remains on cefepime however, day 2. This may simply be from volume depletion. Wean off as tolerated. Cardiac echo pending to assess left ventricular systolic function. (9) YOSI (acute kidney injury): Plan: IV fluid resuscitation. Monitor intake and output. Serial labs (10) Self-care deficit: Plan: Supportive care. Palliative care consultation appreciated Plan To be determined Admission and Anticipated Discharge Date Admission Date: August 21, 2023 Subjective Alert. Restless. He appears to have limited cognitive abilities. He remains on pressor support. Cardiac echo pending. Anion gap is closed and glucose is 157. Phosphorus is low at 1.3. Hyponatremia on admission aggravated by hyperglycemia. Sodium has improved from 116 up to 128. Blood cultures are negative to date. He remains on cefepime. Review of Systems 2 Review of Systems: The patient is unable to reliably answer any questions related to review of systems at this time Physical Exam 2 Physical Exam: General-awake and alert. Restless however. Oriented to name only. HEENT-head atraumatic and normocephalic, pupils equal and reactive to light, extraocular muscles intact Neck-no lymphadenopathy or thyromegaly, trachea midline Chest-clear to auscultation anteriorly. No rales, wheezing or rhonchi Cardiac-regular rate and rhythm, normal S1 and S2 Abdomen-normal bowel sounds, nontender, no hepatosplenomegaly Extremities-no cyanosis, clubbing, or edema Neuro-cranial nerves II through XII intact, motor and sensory function within normal limits, strength symmetrical , no focal deficits Psych-disoriented. Cannot assess Results & Data Results & Data Vital Signs (Past 12 Hours) Vital Signs Temp Pulse Resp BP Pulse Ox O2 Del Method 08/22/23 13:31 36.9 C 96 H 22 08/22/23 13:15 36.9 C 94 H 16 08/22/23 13:03 112/73 08/22/23 13:03 36.9 C 97 H 18 08/22/23 13:01 36.9 C 98 H 24 08/22/23 12:45 100 H 22 08/22/23 12:30 97 H 19 99 Room Air 08/22/23 12:23 36.8 C 95 H 18 97 Room Air 08/22/23 12:23 132/58 L 08/22/23 12:15 36.7 C 104 H 23 98 08/22/23 12:01 36.7 C 93 H 20 98 08/22/23 11:45 36.6 C 88 20 99 08/22/23 11:30 36.6 C 94 H 16 98 08/22/23 11:27 36.6 C 08/22/23 11:15 36.6 C 89 16 99 08/22/23 11:01 90 16 100 08/22/23 10:30 89 17 100 08/22/23 10:01 90 20 99 08/22/23 09:31 86 17 99 08/22/23 09:10 89 20 98 Room Air 08/22/23 09:10 89/52 L 08/22/23 09:00 92 H 18 99 08/22/23 08:32 94 H 20 96 08/22/23 08:32 79/41 L 08/22/23 08:30 92 H 17 99 08/22/23 08:01 36.8 C 102 H 24 97 08/22/23 08:00 Room Air 08/22/23 08:00 36.6 C 08/22/23 08:00 94 H 08/22/23 07:30 36.7 C 104 H 19 99 08/22/23 07:19 36.7 C 94 H 21 100 Room Air 08/22/23 06:45 36.5 C 93 H 20 98 08/22/23 06:30 36.5 C 95 H 19 98 08/22/23 06:15 36.5 C 94 H 17 97 08/22/23 06:00 36.4 C L 95 H 18 97 08/22/23 05:45 36.4 C L 96 H 19 99 08/22/23 05:30 36.4 C L 99 H 18 99 08/22/23 05:15 36.4 C L 95 H 16 100 08/22/23 05:00 36.4 C L 91 H 14 99 08/22/23 04:45 36.4 C L 97 H 16 98 08/22/23 04:30 36.4 C L 91 H 17 99 08/22/23 04:15 36.5 C 96 H 17 98 08/22/23 04:00 36.5 C 92 H 16 99 08/22/23 03:45 101 H 22 08/22/23 03:30 102/68 08/22/23 03:30 111 H 17 99 08/22/23 03:15 99 H 16 98 08/22/23 03:00 98 H 18 99 08/22/23 02:45 100 H 20 98 08/22/23 02:30 84/63 L 08/22/23 02:30 101 H 18 99 08/22/23 02:15 36.3 C L 101 H 17 99 Laboratory Results 08/22/23 09:55 08/22/23 09:55 PG Care Time/CCT Total # of Minutes Spent Total Time Spent with Patient: Total time spent is greater than 50% in coordination of care (as documented) at patient's floor/unit and/or counseling patient: Coding Level of Care Code 44869 SUB INP/OBS CARE 3/50MIN Diagnoses DKA (diabetic ketoacidosis) E13.10 Diabetes mellitus complication detail: without coma Diabetes mellitus type: other specified (including KEENA) Shock R57.9 Volume depletion E86.9 Elevated troponin R79.89 Light chain myeloma C90.00 Pathological compression fracture of spine M48.50XA Pulmonary embolus I26.99 Hypertension I10 YOSI (acute kidney injury) N17.9 Self-care deficit Z78.9 (1) DKA (diabetic ketoacidosis) Diabetes mellitus complication detail: without coma Diabetes mellitus type: o ther specified (including KEENA) Qualified Code(s): E13.10 - Other specified diabetes mellitus with ketoacidosis without coma
[2023-08-22 14:51] LABS: Calcium 6.7 mg/dl (8.6-10.3); Potassium 4.7 mmol/L (3.5-5.1)
[2023-08-22 14:57] LABS: BUN Creatinine Ratio 33.6 (10-20); Creatinine Clr Calc Pharmacy 59.3 ml/min; Est GFR (African American) 73.5 ml/min; Est GFR (Non-African American) 63.5 ml/min; Phosphorus 2.4 mg/dl (2.5-4.9)
[2023-08-22] MEDS: INSULIN REGULAR 250 UNITS in SODIUM CHLORIDE 0.9% 247.5 ML IV SCH (16:29)
--- NOTE | 2023-08-22 17:50 | XCELERA ---
[id number] [id number]
[2023-08-22] MEDS: D5W AND 1/2NSS 1,000 ML IV SCH (19:50)
[2023-08-23] MEDS: INSULIN ASPART PER UNIT CHARGE SC SCH ×5 (04:30→20:30)
[2023-08-23 06:28] LABS: Hematocrit (blood only) 29.2 % (42.0-52.0); Hemoglobin 10.4 g/dl (14.0-18.0); Immature Granulocytes # (auto) 0.04 K/uL (0.01-0.20); Immature Granulocytes % (auto) 1.5 %; Lymphocytes # (auto) 0.27 K/uL (1.20-3.40); Lymphocytes % (auto) 9.9 %; Mean Corpuscular Hemoglobin 31.8 pg (25.0-34.0); Mean Corpuscular Hgb Conc 35.6 g/dL (32.0-36.0); Mean Corpuscular Volume 89.3 fL (80.0-100.0); Mean Platelet Volume 10.7 fL (9.4-12.4); Monocytes # (auto) 0.18 K/uL (0.11-0.59); Monocytes % (auto) 6.6 %; Neutrophils # (auto) 2.23 K/uL (1.40-6.50); Platelet Count 112 K/uL (130-400); Red Blood Count 3.27 M/uL (4.70-6.10); White Blood Count 2.72 K/ul (4.8-10.8)
[2023-08-23 06:47] LABS: BUN Creatinine Ratio 26.9 (10-20); Calcium 6.6 mg/dl (8.6-10.3); Creatinine Clr Calc Pharmacy 73.9 ml/min; Est GFR (African American) 96.1 ml/min; Est GFR (Non-African American) 82.9 ml/min; Magnesium 1.8 mg/dl (1.7-2.4); Potassium 3.8 mmol/L (3.5-5.1)
--- NOTE | 2023-08-23 07:22 | Critical Care Progress Note ---
Date of Service August 23, 2023 Assessment & Plan (1) DKA (diabetic ketoacidosis): (2) Hypothermia: (3) Elevated troponin I level: (4) Dyslipidemia: (5) Type 2 diabetes mellitus: (6) Pulmonary embolus: (7) DVT (deep venous thrombosis): (8) YOSI (acute kidney injury): (9) Self-care deficit: (10) Metabolic acidosis: (11) Encephalopathy: Plan Reason Critically Ill: 68 YOM presents with DKA and general feeling of weakness and myalgias. Imitation of insulin infusion, crystalloid resuscitation, and infectious work up performed. To ICU to monitor acid base status, hemodynamics and response to therapies. Neuro - [facility] ICU: + Acute metabolic encephalopathy - Encephalopathy at this time is likely metabolic in nature secondary to DKA and hypothermia - Head CT negative Cardiac - Shock, Elevated HsCTNI -- S/p shock Multifactorial - Hypovolemia most likely secondary to DKA at this time - He is hypothermic on arrival- with blood and urine cultures pending as well as tick borne . -Random cortisol, 7 patient has been using dexamethasone for a while as well Continue with vasopressor support to keep MAP greater than 65 --Elevated troponin Likely type II NE ECG with nonspecific T wave changes, which may just be related to electrolyte abnormalities- trend. - Previous atypical chest pain work-up was in negative EST and stress ECHO in 2009 Respiratory - Hx of PE and left lower extremity DVT - See Heme section below - no acute needs or opacities on imaging or concern of pneumonia CT chest 08/21/2023 personally reviewed: Focal bronchiectasis appreciated in the right lower lobe right next to the bony spur of the spine No pulmonary infiltrate No mediastinal lymphadenopathy GI - No acute needs at this time RENAL/LYTES - -- S/p HAGMA Likely sec to lactic acidosis with ketoacidosis S/p DKA - No acute needs - Urine culture pending- follow ENDO - DMII - DKA likely secondary to non-compliance- however with myalgias and subjective fevers at home HEME - -- Myelomma, Hx PE/DVT - has had compliance issues in regarding making his appointments for chemo --PE/DVT Lovenox weight based initiated every 12 hours by admitting service- continue at this time- can transition to oral agent once encephalopathy has improved Doppler lower extremity 05/2023 positive for clot in the left lower extremity ID - SIRS - Technically meets SIRS criteria- however immunocompromised - Is without leukocytosis, PCT negative, CT chest negative for acute process - He is however hypothermic and with reports of n/v/diarrhea- has had imaging of head, chest, abdomen and pelvis which is negative for acute process or any enteritis/colitis- Has received 1 dose of Cefepime in EMD - Will hold on further antibiotics at this time and follow fever curve, stool burden, and exam- low threshold to re-initiate broad spectrum - Viral respiratory panel negative for tested viruses --Prophylaxis VTE: Therapeutic Lovenox GI: None Lines: Left radial, peripheral Diet: N.p.o. Plan: In/out: -1.2 L, urine output 3251 Given the low corrected calcium will give calcium chloride for 100 mg Will change therapeutic Lovenox to Eliquis. Will need to load him again as we are not sure when was the last time he took the dose Continue with dexamethasone 6 mg for the time being can gradually taper down to his home dose of 4 mg p.o. 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 It may contain grammatical, syntax or spelling errors.Any formal questions or concerns about the content, text or information contained within the body of this dictation should be directly addressed to the provider for clarification. Admission and Anticipated Discharge Date Admission Date: August 21, 2023 Subjective Patient seen and examined at bedside. No acute distress, no adverse events overnight He does have bouts of delirium on and off but it is fairly manageable without any special medication he is Denies any abdominal pain, no chest pain, no headache, no nausea, no vomiting Has been afebrile Urinating well Has been off vasopressors Review of Systems 2 Review of Systems: All systems reviewed & are unremarkable except as noted in Subjective and Unobtainable due to cognitive status Physical Exam 2 Physical Exam: Constitutional: No acute distress HEENT: EOMI, PERRLA Respiratory system: Good air entry bilaterally, no wheeze, no rhonchi, mild crackles bilateral lower lobes CVS: S1-S2 positive, no murmurs or gallops Abdomen: Soft, nontender, nondistended, positive bowel sounds x4, obese Extremities: +2 pulses bilaterally radialis/ dorsalis pedis, no cyanosis, +2 edema LLL, +1 RLE Neuro: Awake alert oriented to self and place Psych: Normal mood and affect G/U: + [place] Skin: no rashes, warm and dry Lymphatic: no cervical or axillary lymphadenopathy Results & Data Results & Data Vital Signs (Past 12 Hours) Vital Signs Temp Pulse Resp BP Pulse Ox 08/23/23 06:30 96/56 L 08/23/23 06:30 103 H 18 98 08/23/23 06:23 103 H 13 08/23/23 06:23 90/59 L 08/23/23 06:22 93/41 L 08/23/23 06:22 102 H 21 08/23/23 06:15 94/55 L 08/23/23 06:15 102 H 13 08/23/23 06:02 90/53 L 08/23/23 06:02 102 H 18 08/23/23 06:00 105 H 15 08/23/23 05:50 96/52 L 08/23/23 05:50 104 H 30 H 96 08/23/23 05:45 66/44 L 08/23/23 05:45 108 H 13 96 08/23/23 05:30 95/53 L 08/23/23 05:30 105 H 14 96 08/23/23 05:15 111/63 08/23/23 05:15 102 H 19 98 08/23/23 05:00 105/61 08/23/23 05:00 101 H 21 98 08/23/23 05:00 36.6 C 08/23/23 04:45 109/59 L 08/23/23 04:45 94 H 22 97 08/23/23 04:30 93 H 13 96 08/23/23 04:30 112/69 08/23/23 04:23 102/56 L 08/23/23 04:23 99 H 22 96 08/23/23 04:20 97/51 L 08/23/23 04:20 98 H 23 08/23/23 04:15 96 H 17 96 08/23/23 04:02 107/72 08/23/23 04:02 99 H 21 95 08/23/23 04:00 100 H 20 97 08/23/23 03:45 98 H 19 97 08/23/23 03:30 107/78 08/23/23 03:30 99 H 31 H 97 08/23/23 03:16 100 H 21 99 08/23/23 03:16 111/71 08/23/23 03:15 99 H 20 98 08/23/23 03:00 104/89 08/23/23 03:00 94 H 18 98 08/23/23 02:56 109/72 08/23/23 02:56 101 H 15 97 08/23/23 02:45 96 H 22 98 08/23/23 02:30 101 H 21 98 08/23/23 02:15 84 14 97 08/23/23 02:00 117/67 08/23/23 02:00 82 13 97 08/23/23 01:45 93 H 16 95 08/23/23 01:34 99/60 L 08/23/23 01:29 36.5 C 08/23/23 01:15 105 H 22 98 08/23/23 01:00 103/61 08/23/23 01:00 103 H 22 98 08/23/23 00:45 100 H 19 98 08/23/23 00:30 90 15 97 08/23/23 00:15 93 H 21 99 08/23/23 00:00 90 16 97 08/22/23 23:45 36.5 C 08/22/23 23:45 91 H 21 97 08/22/23 23:30 90/54 L 08/22/23 23:30 99 H 21 98 08/22/23 23:15 95 H 14 98 08/22/23 23:00 36.6 C 08/22/23 23:00 100/72 08/22/23 23:00 92 H 18 98 08/22/23 22:45 97 H 18 98 08/22/23 22:42 96 H 17 97 08/22/23 22:42 106/63 08/22/23 22:36 94 H 17 98 08/22/23 22:36 85/63 L 08/22/23 22:30 99/55 L 08/22/23 22:30 97 H 26 H 97 08/22/23 22:17 36.7 C 08/22/23 22:15 99 H 17 99 08/22/23 22:00 95 H 20 98 08/22/23 21:54 85 08/22/23 21:45 88 15 99 08/22/23 21:37 100/59 L 08/22/23 21:37 97 H 22 99 08/22/23 21:36 80/68 L 08/22/23 21:36 99 H 16 98 08/22/23 21:30 91 H 15 98 08/22/23 21:15 94 H 17 100 08/22/23 21:00 36.8 C 08/22/23 21:00 92 H 16 97 08/22/23 20:45 94 H 13 100 08/22/23 20:30 36.6 C 08/22/23 20:30 91 H 19 99 08/22/23 20:15 93 H 21 99 08/22/23 20:00 92 H 18 99 08/22/23 19:45 103 H 20 98 08/22/23 19:30 108/65 08/22/23 19:30 96 H 23 100 08/22/23 19:27 94 H 17 99 08/22/23 19:27 112/64 Laboratory Results 08/23/23 05:22 08/23/23 05:22 Coding Level of Care Code 92697 SUB INP/OBS CARE 350MIN Diagnoses DKA (diabetic ketoacidosis) E13.10 Diabetes mellitus complication detail: without coma Diabetes mellitus type: other specified (including KEENA) Hypothermia T68.XXXA Encounter type: initial encounter Elevated troponin I level R79.89 Dyslipidemia E78.5 Type 2 diabetes mellitus E11.9 Pulmonary embolus I26.99 DVT (deep venous thrombosis) I82.409 YOSI (acute kidney injury) N17.9 Self-care deficit Z78.9 Metabolic acidosis E87.20 Encephalopathy G93.40 (1) DKA (diabetic ketoacidosis) Diabetes mellitus complication detail: without coma Diabetes mellitus type: o ther specified (including KEENA) Qualified Code(s): E13.10 - Other specified diabetes mellitus with ketoacidosis without coma (2) Hypothermia Encounter type: initial encounter Qualified Code(s): T68.XXXA - Hypothermia, initial encounter
[2023-08-23] MEDS: LANTUS PER UNIT CHARGE SC SCH (08:10)
[2023-08-23] MEDS: ENOXAPARIN 80 MG/0.8 ML SYR SQ SCH (08:11)
[2023-08-23] MEDS: dexAMETHasone 6 MG in SYRINGE 0 ML IV SCH (08:12)
[2023-08-23] MEDS: D5W AND 1/2NSS 1,000 ML IV SCH (08:17)
[2023-08-23] MEDS ORDERED: CALCIUM CHLORIDE 10% 500 MG in DEXTROSE 5% 50 ML IV ONE (08:45)
[2023-08-23] MEDS ORDERED: POTASSIUM PHOS 3 MMOL/1 ML INFUSION IV STA (09:31)
[2023-08-23] MEDS ORDERED: POTASSIUM PHOSPHATE 21 MMOL in SODIUM CHLORIDE 0.9% 500 ML IV ONE (10:00)
[2023-08-23] MEDS: NOREPINEPHRINE/D5W 4 MG/250 ML PLCT IV SCH (12:40)
--- NOTE | 2023-08-23 14:20 | Pharmacy Report ---
Pharmacy Glycemic Short Note 2 - Date of Service August 23, 2023 - Glycemic Short BSG Results (Last 24 hours): 08/22/23 08/22/23 08/22/23 14:12 14:22 15:24 Glucose 261 H POC Glucose 223 H POC Glucose (other) 145 H 08/22/23 08/22/23 08/22/23 15:57 16:28 17:36 Glucose POC Glucose POC Glucose (other) 127 H 131 H 165 H 08/22/23 08/22/23 08/23/23 20:06 23:30 03:28 Glucose POC Glucose 232 H 228 H 145 H POC Glucose (other) 08/23/23 08/23/23 08/23/23 03:56 05:22 07:27 Glucose 163 H POC Glucose 187 H POC Glucose (other) 149 H 08/23/23 11:07 Glucose POC Glucose 208 H POC Glucose (other) OUTPATIENT ANTIDIABETIC REGIMEN: * Tresiba 33 units (?); Metformin * A1c pending ASSESSMENT: * Patient presented in DKA on 08/21 started on insulin infusion. Insulin infusion was titrated off on 08/22 with a total of 30 units of lantus * Patient was given 50 mg of hydrocortisone and starting on dexamethasone 6 mg IV daily starting today. * BSGs initially increased after stopping infusion but trended back down overnight. Patient was on Dextrose infusion until ~1000 this morning. * Fasting 187 mg/dL- will give up to 35 units of lantus today. * Tightened novolog to weight based stress of 3 given steroid use. Monitor for additional needed changes PLAN FOR INPATIENT GLYCEMIC CONTROL: * Hold outpatient oral diabetes medications * Basal insulin * Lantus 25 units x1 this AM, 0/10 units this PM * Bolus insulin * NovoLog per scale ACHS or Q6hrs while NPO * Goal Range: Low 110 mg/dL - High 140 mg/dL * Correction Factor: 20 mg/dL/unit * Nutritional / Prandial insulin per carb ratio of 1 unit per 7 grams CHO consumed
--- NOTE | 2023-08-23 14:23 | Hospitalist Progress Note ---
Date of Service August 23, 2023 Assessment & Plan (1) DKA (diabetic ketoacidosis): Plan: Now resolved. Anion gap has closed. Glucose acceptable. Continue basal insulin therapy. (2) Shock: Plan: Appears to be hypovolemic on admission. Now resolved. Pressors have been discontinued. Continue IV fluids for now. Blood cultures remain negative. (3) Volume depletion: Plan: IV fluids continue. Monitor intake and output (4) Elevated troponin: Plan: Probably supply/demand mismatch. No wall motion abnormality seen on cardiac echo. No evidence of acute coronary syndrome. 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 Has missed several transfusions in the previous months. Oncology follow-up and management (6) Pathological compression fracture of spine: Plan: Not new. Pain control measures. (7) Pulmonary embolus: Plan: In the past. Due to leg DVT. Eliquis therapy in the past but this the patient is noncompliant. Continue prophylaxis with subcutaneous Lovenox and switch to Eliquis today or tomorrow. (8) Hypertension: Plan: Pressor support has been discontinued. Low-dose metoprolol started. No evidence of septic shock as blood cultures negative to date. He remains on cefepime however, day 3. This appears to simply be from volume depletion. Cardiac echo reveals hyperdynamic left ventricular systolic function (9) YOSI (acute kidney injury): Plan: Continue IV fluid resuscitation. Monitor intake and output. Serial labs (10) Self-care deficit: Plan: Supportive care. Palliative care consultation appreciated Plan To be determined. OT and PT evaluations when able. He may need placement at discharge Admission and Anticipated Discharge Date Admission Date: August 21, 2023 Subjective Awake and alert but mildly encephalopathic. He is off pressor support now. Metoprolol has been restarted at low-dose to help with heart rate control. Anion gap is closed and glucose 163. Phosphorus improved to 1.5. He has a previous leg DVT and is now on Lovenox 70 mg every 12 hours. Hopefully this can be switched to Eliquis soon. Echo reveals hyperdynamic left ventricular systolic function. Will continue IV fluids for now. Review of Systems 2 Review of Systems: The patient remains unable to answer any questions reliably regarding review of systems Physical Exam 2 Physical Exam: General-awake and alert. Restless however and confused. Oriented to name only. HEENT-head atraumatic and normocephalic, pupils equal and reactive to light, extraocular muscles intact Neck-no lymphadenopathy or thyromegaly, trachea midline Chest-clear to auscultation anteriorly. No rales, wheezing or rhonchi Cardiac-regular rate and rhythm, normal S1 and S2. Mildly tachycardic Abdomen-normal bowel sounds, nontender, no hepatosplenomegaly Extremities-no cyanosis, clubbing, or edema Neuro-cranial nerves II through XII intact, motor and sensory function within normal limits, strength symmetrical , no focal deficits Psych-disoriented. Cannot assess Results & Data Results & Data Vital Signs (Past 12 Hours) Vital Signs Temp Pulse Resp BP Pulse Ox O2 Del Method 08/23/23 14:00 107 H 12 97 08/23/23 13:00 36.4 C L 08/23/23 13:00 96 H 14 126/77 98 08/23/23 12:30 103 H 20 128/79 100 08/23/23 12:00 97 H 21 138/75 97 08/23/23 11:00 94 H 18 116/82 96 08/23/23 10:56 Room Air 08/23/23 10:56 60 08/23/23 10:47 Room Air 08/23/23 10:30 103 H 15 104/80 97 08/23/23 10:00 94 H 16 92/65 L 96 08/23/23 09:45 105 H 19 125/70 99 08/23/23 09:30 108 H 19 107/61 100 08/23/23 09:00 113 H 16 96/63 L 08/23/23 08:30 110 H 18 91/73 L 08/23/23 08:00 111 H 17 99/67 L 08/23/23 07:30 108 H 19 110/85 97 08/23/23 07:00 98 H 18 107/66 97 08/23/23 06:30 96/56 L 08/23/23 06:30 103 H 18 98 08/23/23 06:23 103 H 13 08/23/23 06:23 90/59 L 08/23/23 06:22 93/41 L 08/23/23 06:22 102 H 21 08/23/23 06:15 94/55 L 08/23/23 06:15 102 H 13 08/23/23 06:02 90/53 L 08/23/23 06:02 102 H 18 08/23/23 06:00 105 H 15 08/23/23 05:50 96/52 L 08/23/23 05:50 104 H 30 H 96 08/23/23 05:45 66/44 L 08/23/23 05:45 108 H 13 96 08/23/23 05:30 95/53 L 08/23/23 05:30 105 H 14 96 08/23/23 05:15 111/63 08/23/23 05:15 102 H 19 98 08/23/23 05:00 105/61 08/23/23 05:00 101 H 21 98 08/23/23 05:00 36.6 C 08/23/23 04:45 109/59 L 08/23/23 04:45 94 H 22 97 08/23/23 04:30 93 H 13 96 08/23/23 04:30 112/69 08/23/23 04:23 102/56 L 08/23/23 04:23 99 H 22 96 08/23/23 04:20 97/51 L 08/23/23 04:20 98 H 23 08/23/23 04:15 96 H 17 96 08/23/23 04:02 107/72 08/23/23 04:02 99 H 21 95 08/23/23 04:00 100 H 20 97 08/23/23 03:45 98 H 19 97 08/23/23 03:30 107/78 08/23/23 03:30 99 H 31 H 97 08/23/23 03:16 100 H 21 99 08/23/23 03:16 111/71 08/23/23 03:15 99 H 20 98 08/23/23 03:00 104/89 08/23/23 03:00 94 H 18 98 08/23/23 02:56 109/72 08/23/23 02:56 101 H 15 97 08/23/23 02:45 96 H 22 98 08/23/23 02:30 101 H 21 98 Laboratory Results 08/23/23 05:22 08/23/23 05:22 PG Care Time/CCT Total # of Minutes Spent Total Time Spent with Patient: Total time spent is greater than 50% in coordination of care (as documented) at patient's floor/unit and/or counseling patient: Coding Level of Care Code 27381 SUB INP/OBS CARE 3/50MIN Diagnoses DKA (diabetic ketoacidosis) E13.10 Diabetes mellitus complication detail: without coma Diabetes mellitus type: other specified (including KEENA) Shock R57.9 Volume depletion E86.9 Elevated troponin R79.89 Light chain myeloma C90.00 Pathological compression fracture of spine M48.50XA Pulmonary embolus I26.99 Hypertension I10 YOSI (acute kidney injury) N17.9 Self-care deficit Z78.9 (1) DKA (diabetic ketoacidosis) Diabetes mellitus complication detail: without coma Diabetes mellitus type: o ther specified (including KEENA) Qualified Code(s): E13.10 - Other specified diabetes mellitus with ketoacidosis without coma
[2023-08-23] MEDS: METOPROLOL TARTRATE 25 MG TAB PO SCH ×2 (15:14→20:08)
[2023-08-23] MEDS: APIXABAN 5 MG TABLET PO SCH (20:04)
[2023-08-23] MEDS ORDERED: LANTUS PER UNIT CHARGE SC ONE (21:00)
[2023-08-24 05:43] LABS: Calcium 6.9 mg/dl (8.6-10.3); Magnesium 1.6 mg/dl (1.7-2.4); Potassium 4.2 mmol/L (3.5-5.1)
[2023-08-24 05:48] LABS: BUN Creatinine Ratio 19.8 (10-20); Creatinine Clr Calc Pharmacy 75.5 ml/min; Est GFR (African American) 98.6 ml/min; Est GFR (Non-African American) 85.1 ml/min
[2023-08-24 05:54] LABS: Phosphorus 1.4 mg/dl (2.5-4.9)
[2023-08-24 07:19] LABS: Estimated Average Glucose 427 mg/dl; Hemoglobin A1C 16.5 % (4.5-5.6)
[2023-08-24] MEDS: METOPROLOL TARTRATE 25 MG TAB PO SCH ×2 (08:05→20:32)
[2023-08-24] MEDS: APIXABAN 5 MG TABLET PO SCH ×2 (08:05→20:32)
[2023-08-24] MEDS: dexAMETHasone 6 MG in SYRINGE 0 ML IV SCH (08:29)
[2023-08-24] MEDS: LANTUS PER UNIT CHARGE SC SCH (08:58)
[2023-08-24] MEDS: INSULIN ASPART PER UNIT CHARGE SC SCH ×4 (08:59→20:36)
[2023-08-24] MEDS ORDERED: SODIUM PHOSPHATE 3 MMOL/1 ML INFUSION IV STA (11:05)
[2023-08-24] MEDS ORDERED: STAT IV/IM STA (11:05)
[2023-08-24] MEDS ORDERED: SODIUM PHOSPHATE 24 MMOL in SODIUM CHLORIDE 0.9% 500 ML IV ONE (11:15)
[2023-08-24] MEDS: CALCIUM GLUCONATE 10% 1,000 MG in SODIUM CHLOR 0.9% MINI-B 50 ML IV SCH ×2 (11:59→12:18)
[2023-08-24] MEDS: MAGNESIUM SULFATE / D5W 1 GM/100 ML BAG IV SCH ×2 (12:03→13:46)
--- NOTE | 2023-08-24 14:27 | Hospitalist Progress Note ---
Date of Service August 24, 2023 Assessment & Plan (1) DKA (diabetic ketoacidosis): Plan: Now resolved. Anion gap has closed. Glucose acceptable. Continue basal insulin therapy. (2) Shock: Plan: Appeared to be hypovolemic on admission. Now resolved. Pressors have been discontinued. Blood cultures remain negative. (3) Volume depletion: Plan: Resolved with IV fluids. Monitor intake and output (4) Elevated troponin: Plan: Probably supply/demand mismatch. No wall motion abnormality seen on cardiac echo. No evidence of acute coronary syndrome. 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 Has missed several transfusions in the previous months. Oncology follow-up and management (6) Pathological compression fracture of spine: Plan: Not new. Pain control measures. (7) Pulmonary embolus: Plan: In the past. Due to leg DVT. Eliquis therapy in the past but this the patient is noncompliant. Lovenox has been switched back to Eliquis. (8) Hypertension: Plan: Actually hypotension present on admission. Pressor support has been discontinued. Low-dose metoprolol has been started and well-tolerated so far. No evidence of septic shock as blood cultures negative to date. Antibiotics have been discontinued. This appears to simply be from volume depletion. Cardiac echo reveals hyperdynamic left ventricular systolic function (9) YOSI (acute kidney injury): Plan: Resolved with IV fluid resuscitation. Monitor intake and output. Serial labs (10) Self-care deficit: Plan: Supportive care. Palliative care consultation appreciated (11) Hypocalcemia: Plan: Parenteral replacement. Serial labs (12) Hypophosphatemia: Plan: Parenteral replacement. Serial labs (13) Hypomagnesemia: Plan: Parenteral replacement. Serial labs Plan To be determined. OT and PT evaluations when able. He may need placement at discharge Admission and Anticipated Discharge Date Admission Date: August 21, 2023 Subjective The patient looks and feels better today. Parenteral dexamethasone switched to his usual oral dosing. Lovenox has been switched over to Eliquis. Phosphorus, magnesium, calcium replacement continues. Cardiac echo reveals normal ejection fraction. He is on room air. Glucose 122. OT and PT assessments have been requested Review of Systems 2 Review of Systems: Constitutional-no fever or chills ENT-no blurred vision, no double vision, no epistaxis, no sore throat Respiratory-no cough, no wheezing, no shortness of breath Cardiac-no palpitations, no chest pain, no syncope GI-no nausea, vomiting, diarrhea, melena, hematochezia -no urinary retention, no urinary incontinence, no dysuria, no hematuria Musculoskeletal-no joint pain, no muscle tenderness Skin-no bruising, no rashes, no pruritus Neuro-no isolated weakness, no paresthesia Psych-no depression, no anxiety Physical Exam 2 Physical Exam: General-alert and oriented x3, no fevers, no chills HEENT-head atraumatic and normocephalic, pupils equal and reactive to light, extraocular muscles intact Neck-no lymphadenopathy or thyromegaly, trachea midline Chest-clear to auscultation. No rales, wheezing or rhonchi Cardiac-regular rate and rhythm, normal S1 and S2, no murmurs Abdomen-normal bowel sounds, nontender, no hepatosplenomegaly Extremities-no cyanosis, clubbing, or edema Neuro-cranial nerves II through XII intact, motor and sensory function within normal limits, strength symmetrical, no focal deficits Psych-normal affect, normal mood Results & Data Results & Data Vital Signs (Past 12 Hours) Vital Signs Temp Pulse Pulse Resp BP BP BP 08/24/23 11:08 36.4 C L 77 17 104/63 08/24/23 07:28 36.7 C 82 18 105/62 08/24/23 03:50 36.6 C 08/24/23 03:30 75 14 124/68 Pulse Ox O2 Del Method 08/24/23 11:08 97 Room Air 08/24/23 07:28 98 Room Air 08/24/23 03:50 08/24/23 03:30 Laboratory Results 08/23/23 05:22 08/24/23 05:06 PG Care Time/CCT Total # of Minutes Spent Total Time Spent with Patient: Total time spent is greater than 50% in coordination of care (as documented) at patient's floor/unit and/or counseling patient: Coding Level of Care Code 97238 SUB INP/OBS CARE 3/50MIN Diagnoses DKA (diabetic ketoacidosis) E13.10 Diabetes mellitus complication detail: without coma Diabetes mellitus type: other specified (including KEENA) Shock R57.9 Volume depletion E86.9 Elevated troponin R79.89 Light chain myeloma C90.00 Pathological compression fracture of spine M48.50XA Pulmonary embolus I26.99 Hypertension I10 YOSI (acute kidney injury) N17.9 Self-care deficit Z78.9 Hypocalcemia E83.51 Hypophosphatemia E83.39 Hypomagnesemia E83.42 (1) DKA (diabetic ketoacidosis) Diabetes mellitus complication detail: without coma Diabetes mellitus type: o ther specified (including KEENA) Qualified Code(s): E13.10 - Other specified diabetes mellitus with ketoacidosis without coma
[2023-08-25 07:58] LABS: BUN Creatinine Ratio 20.9 (10-20); Calcium 7.2 mg/dl (8.6-10.3); Creatinine Clr Calc Pharmacy 75.5 ml/min; Est GFR (African American) 98.6 ml/min; Est GFR (Non-African American) 85.1 ml/min; Magnesium 1.7 mg/dl (1.7-2.4); Phosphorus 1.7 mg/dl (2.5-4.9)
[2023-08-25] MEDS: dexAMETHasone 4 MG TAB PO SCH (08:52)
[2023-08-25] MEDS: METOPROLOL TARTRATE 25 MG TAB PO SCH ×2 (08:52→20:27)
[2023-08-25] MEDS: APIXABAN 5 MG TABLET PO SCH ×2 (08:52→20:26)
[2023-08-25] MEDS: INSULIN ASPART PER UNIT CHARGE SC SCH ×4 (08:56→20:27)
[2023-08-25] MEDS: LANTUS PER UNIT CHARGE SC SCH (08:57)
[2023-08-25] MEDS ORDERED: SODIUM PHOSPHATE 3 MMOL/1 ML INFUSION IV STA (09:54)
[2023-08-25] MEDS ORDERED: SODIUM PHOSPHATE 21 MMOL in SODIUM CHLORIDE 0.9% 500 ML IV ONE (10:15)
[2023-08-25] MEDS ORDERED: POTASSIUM PHOSPHATE 21 MMOL in SODIUM CHLORIDE 0.9% 500 ML IV ONE (10:15)
[2023-08-25 12:07] LABS: Babesia microti DNA Not Detected (Not Detected)
--- NOTE | 2023-08-25 16:58 | Hospitalist Progress Note ---
Date of Service August 25, 2023 Assessment & Plan (1) DKA (diabetic ketoacidosis): Plan: Now resolved. Anion gap has closed. Glucose acceptable. Continue basal insulin therapy. -HgBA1c: 16.5 - Will need outpatient endocrinology follow up (2) Shock: Plan: Appeared to be hypovolemic on admission. Now resolved. Pressors have been discontinued. Blood cultures - NG 48 hrs (3) Volume depletion: Plan: Resolved with IV fluids. Monitor intake and output (4) Elevated troponin: Plan: Probably supply/demand mismatch. No wall motion abnormality seen on cardiac echo. No evidence of acute coronary syndrome. 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 Has missed several transfusions in the previous months. Oncology follow-up and management Dexamethasone 4mg restarted at home dose (? taking prior to chemo) (6) Pathological compression fracture of spine: Plan: Not new. Pain control measures. (7) Pulmonary embolus: Plan: In the past. Due to leg DVT. Eliquis therapy in the past but this the patient is noncompliant. Lovenox has been switched back to Eliquis. 10mg BID for 14 days then 5mg BID (8) Hypertension: Plan: Was hypotensive on admission, but resolved Low-dose metoprolol has been started and well-tolerated so far. (9) YOSI (acute kidney injury): Plan: Resolved with IV fluid resuscitation. Monitor intake and output. Serial labs (10) Self-care deficit: Plan: Supportive care. Palliative care consultation appreciated -PT/OT (11) Hypocalcemia: Plan: Parenteral replacement. Serial labs -last replaced 08/24 (12) Hypophosphatemia: Plan: Parenteral replacement. Serial labs -Last replaced 08/25 (13) Hypomagnesemia: Plan: Parenteral replacement. Serial labs -last replaced 08/24 Plan Dispo: continued inpatient stay to correct electrolytes, will likely need placement DVT proh: Eliquis Admission and Anticipated Discharge Date Admission Date: August 21, 2023 Subjective Patient sitting up in bed, eating lunch. Friend Julio at bedside. States that he is feeling better today, but has not gotten out of bed yet. Is hoping to go down and visit his mother, who is also admitted to the hospital. Discussed his outpatient blood glucose monitoring and he states that he does check his sugars but frequently forgets to give himself the insulin. States that his sugars are normally in the 300s. Has seen endocrinology but last visit was October 2022 Has not had a bowel movement recently Tele - SR 50-90s Review of Systems Review of Systems: All systems reviewed & are unremarkable except as noted in Subjective Physical Exam Physical Exam: General: NAD, sitting up in bed, eating lunch VS as above Resp: normal respiratory effort, lungs clear to auscultation CV: RRR, no murmur, Abd: normal bowel sounds, non tender, no hepatosplenomegaly Extremities: Moves all extremities, no edema Neuro: A&O x3, Skin: intact, no lesions noted Results & Data Results & Data Vital Signs (Past 12 Hours) Vital Signs Temp Pulse Pulse Resp BP Pulse Ox O2 Del Method 08/25/23 15:24 72 08/25/23 15:16 36.6 C 66 19 102/63 97 Room Air 08/25/23 11:57 36.3 C L 68 18 97/60 L 96 Room Air 08/25/23 07:58 65 08/25/23 07:32 36.6 C 75 19 131/74 99 Room Air Laboratory Results Chemistry, mag and phos reviewed PG Care Time/CCT Total # of Minutes Spent Total Time Spent with Patient: Total time spent is greater than 50% in coordination of care (as documented) at patient's floor/unit and/or counseling patient: Coding Level of Care Code 30492 SUB INP/OBS CARE 2/35MIN Diagnoses DKA (diabetic ketoacidosis) E13.10 Diabetes mellitus complication detail: without coma Diabetes mellitus type: other specified (including KEENA) Shock R57.9 Volume depletion E86.9 Elevated troponin R79.89 Light chain myeloma C90.00 Pathological compression fracture of spine M48.50XA Pulmonary embolus I26.99 Hypertension I10 YOSI (acute kidney injury) N17.9 Self-care deficit Z78.9 Hypocalcemia E83.51 Hypophosphatemia E83.39 Hypomagnesemia E83.42 (1) DKA (diabetic ketoacidosis) Diabetes mellitus complication detail: without coma Diabetes mellitus type: other specified (including KEENA) Qualified Code(s): E13.10 - Other specified diabetes mellitus with ketoacidosis without coma
[2023-08-25] MEDS ORDERED: POLYETHYLENE (MIRALAX) 17 GM PACK PO ONE (17:02)
[2023-08-25] MEDS ORDERED: POLYETHYLENE (MIRALAX) 17 GM PACK PO PRN (17:02)
[2023-08-25] MEDS ORDERED: FAMOTIDINE 40 MG TABLET PO ONE (21:49)
[2023-08-26 07:01] LABS: Anion Gap 6 (3-11); BUN Creatinine Ratio 23.1 (10-20); Blood Urea Nitrogen 21 mg/dl (6-23); Calcium 7.1 mg/dl (8.6-10.3); Carbon Dioxide 18 mmol/L (21-32); Chloride 110 mmol/L (98-107); Creatinine Clr Calc Pharmacy 75.5 ml/min; Est GFR (African American) 98.6 ml/min; Est GFR (Non-African American) 85.1 ml/min; Glucose 93 mg/dl (70-99(Fasting)); Magnesium 1.5 mg/dl (1.7-2.4); Phosphorus 2.2 mg/dl (2.5-4.9); Sodium 134 mmol/L (136-145)
[2023-08-26] MEDS: dexAMETHasone 4 MG TAB PO SCH (09:51)
[2023-08-26] MEDS: METOPROLOL TARTRATE 25 MG TAB PO SCH ×2 (09:52→21:13)
[2023-08-26] MEDS: INSULIN ASPART PER UNIT CHARGE SC SCH ×4 (09:52→21:13)
[2023-08-26] MEDS: APIXABAN 5 MG TABLET PO SCH ×2 (09:52→21:12)
[2023-08-26] MEDS: LANTUS PER UNIT CHARGE SC SCH (09:52)
--- NOTE | 2023-08-26 22:53 | Hospitalist Progress Note ---
Date of Service August 26, 2023 Assessment & Plan (1) DKA (diabetic ketoacidosis): Plan: Now resolved. Anion gap has closed. Glucose acceptable. Continue basal insulin therapy. -HgBA1c: 16.5 - Will need outpatient endocrinology follow up (2) Shock: Plan: Appeared to be hypovolemic on admission. Now resolved. Pressors have been discontinued. Blood cultures - NG 48 hrs (3) Volume depletion: Plan: Resolved with IV fluids. Monitor intake and output (4) Elevated troponin: Plan: Probably supply/demand mismatch. No wall motion abnormality seen on cardiac echo. No evidence of acute coronary syndrome. 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 Has missed several transfusions in the previous months. Oncology follow-up and management Dexamethasone 4mg restarted at home dose (? taking prior to chemo) (6) Pathological compression fracture of spine: Plan: Not new. Pain control measures. (7) Pulmonary embolus: Plan: In the past. Due to leg DVT. Eliquis therapy in the past but this the patient is noncompliant. Lovenox has been switched back to Eliquis. 10mg BID for 14 days then 5mg BID (8) Hypertension: Plan: Was hypotensive on admission, but resolved Low-dose metoprolol has been started and well-tolerated so far. continue metoprolol on 08/26 (9) YOSI (acute kidney injury): Plan: Resolved with IV fluid resuscitation. Monitor intake and output. Serial labs (10) Self-care deficit: Plan: Supportive care. Palliative care consultation appreciated -PT/OT (11) Hypocalcemia: Plan: Parenteral replacement. Serial labs -last replaced 08/24 (12) Hypophosphatemia: Plan: Parenteral replacement. Serial labs -Last replaced 08/25 (13) Hypomagnesemia: Plan: Parenteral replacement. Serial labs -last replaced 08/24 Plan Dispo: continued inpatient stay to correct electrolytes, will likely need placement DVT proh: Eliquis Admission and Anticipated Discharge Date Admission Date: August 21, 2023 Subjective 68 yo male reports no new symptoms. Review of Systems Review of Systems: All systems reviewed & are unremarkable except as noted in HPI & below Physical Exam Physical Exam: General: NAD, sitting up in bed, eating lunch VS as above Resp: normal respiratory effort, lungs clear to auscultation CV: RRR, no murmur, Abd: normal bowel sounds, non tender, no hepatosplenomegaly Extremities: Moves all extremities, no edema Neuro: A&O x3, Skin: intact, no lesions noted Results & Data Results & Data Vital Signs (Past 12 Hours) Vital Signs Temp Pulse Pulse Resp BP BP Pulse Ox 08/26/23 19:35 08/26/23 19:29 36.9 C 80 18 121/68 99 08/26/23 16:44 36.6 C 73 18 112/60 99 08/26/23 16:00 66 08/26/23 11:38 36.4 C L 69 18 109/71 100 O2 Del Method 08/26/23 19:35 Room Air 08/26/23 19:29 Room Air 08/26/23 16:44 Room Air 08/26/23 16:00 08/26/23 11:38 Room Air PG Care Time/CCT Total # of Minutes Spent Total Time Spent with Patient: Total time spent is greater than 50% in coordination of care (as documented) at patient's floor/unit and/or counseling patient: Coding Level of Care Code 88640 SUB INP/OBS CARE 2MIN Diagnoses DKA (diabetic ketoacidosis) E13.10 Diabetes mellitus complication detail: without coma Diabetes mellitus type: other specified (including KEENA) Shock R57.9 Volume depletion E86.9 Elevated troponin R79.89 Light chain myeloma C90.00 Pathological compression fracture of spine M48.50XA Pulmonary embolus I26.99 Hypertension I10 YOSI (acute kidney injury) N17.9 Self-care deficit Z78.9 Hypocalcemia E83.51 Hypophosphatemia E83.39 Hypomagnesemia E83.42 (1) DKA (diabetic ketoacidosis) Diabetes mellitus complication detail: without coma Diabetes mellitus type: other specified (including KEENA) Qualified Code(s): E13.10 - Other specified diabetes mellitus with ketoacidosis without coma
[2023-08-27 06:30] LABS: Hematocrit (blood only) 28.7 % (42.0-52.0); Mean Corpuscular Hemoglobin 31.7 pg (25.0-34.0); Mean Corpuscular Hgb Conc 34.8 g/dL (32.0-36.0); Mean Corpuscular Volume 91.1 fL (80.0-100.0); Mean Platelet Volume 10.5 fL (9.4-12.4); Nucleated RBC # (auto) 0.07 K/uL (0.00-0.12); Nucleated RBC % (auto) 2.5 %; Platelet Count 154 K/uL (130-400); RDW Coefficient of Variation 14.2 % (11.5-14.5); Red Blood Count 3.15 M/uL (4.70-6.10)
[2023-08-27 06:42] LABS: BUN Creatinine Ratio 28.2 (10-20); Calcium 7.2 mg/dl (8.6-10.3); Creatinine Clr Calc Pharmacy 88.1 ml/min; Est GFR (Non-African American) 91.5 ml/min; Magnesium 1.3 mg/dl (1.7-2.4); Potassium 4.1 mmol/L (3.5-5.1)
[2023-08-27] MEDS: LANTUS PER UNIT CHARGE SC SCH (08:43)
[2023-08-27] MEDS: INSULIN ASPART PER UNIT CHARGE SC SCH ×4 (08:43→21:41)
[2023-08-27] MEDS: APIXABAN 5 MG TABLET PO SCH ×2 (08:44→21:40)
[2023-08-27] MEDS: METOPROLOL TARTRATE 25 MG TAB PO SCH ×2 (08:44→21:39)
[2023-08-27] MEDS: dexAMETHasone 4 MG TAB PO SCH (08:44)
--- NOTE | 2023-08-27 22:57 | Hospitalist Progress Note ---
Date of Service August 27, 2023 Assessment & Plan (1) DKA (diabetic ketoacidosis): Plan: Now resolved. Anion gap has closed. Glucose acceptable. Continue basal insulin therapy. -HgBA1c: 16.5 - Will need outpatient endocrinology follow up anticipate discharge tomorrow. (2) Shock: Plan: Appeared to be hypovolemic on admission. Now resolved. Pressors have been discontinued. Blood cultures - NG 48 hrs (3) Volume depletion: Plan: Resolved with IV fluids. Monitor intake and output (4) Elevated troponin: Plan: Probably supply/demand mismatch. No wall motion abnormality seen on cardiac echo. No evidence of acute coronary syndrome. 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 Has missed several transfusions in the previous months. Oncology follow-up and management Dexamethasone 4mg restarted at home dose (? taking prior to chemo) (6) Pathological compression fracture of spine: Plan: Not new. Pain control measures. (7) Pulmonary embolus: Plan: In the past. Due to leg DVT. Eliquis therapy in the past but this the patient is noncompliant. Lovenox has been switched back to Eliquis. 10mg BID for 14 days then 5mg BID (8) Hypertension: Plan: Was hypotensive on admission, but resolved Low-dose metoprolol has been started and well-tolerated so far. continue metoprolol on 08/26 (9) YOSI (acute kidney injury): Plan: Resolved with IV fluid resuscitation. Monitor intake and output. Serial labs (10) Self-care deficit: Plan: Supportive care. Palliative care consultation appreciated -PT/OT (11) Hypocalcemia: Plan: Parenteral replacement. Serial labs -last replaced 08/24 (12) Hypophosphatemia: Plan: Parenteral replacement. Serial labs -Last replaced 08/25 (13) Hypomagnesemia: Plan: Parenteral replacement. Serial labs -last replaced 08/24 Plan Dispo: home health dischargre on 08/28 DVT proh: Eliquis Admission and Anticipated Discharge Date Admission Date: August 21, 2023 Subjective Patient reports no new symptoms. Review of Systems Review of Systems: All systems reviewed & are unremarkable except as noted in HPI & below Physical Exam Physical Exam: General: NAD, sitting up in bed, Resp: normal respiratory effort, lungs clear to auscultation CV: RRR, no murmur, Abd: normal bowel sounds, non tender, no hepatosplenomegaly Extremities: Moves all extremities, no edema Neuro: A&O x3, Skin: intact, no lesions noted Results & Data Results & Data Vital Signs (Past 12 Hours) Vital Signs Temp Pulse Pulse Pulse Resp BP BP 08/27/23 21:36 36.4 C L 84 18 131/82 08/27/23 16:27 36.5 C 62 18 132/78 08/27/23 16:00 71 08/27/23 11:56 36.5 C 56 L 18 120/67 08/27/23 11:06 Pulse Ox O2 Del Method 08/27/23 21:36 98 Room Air 08/27/23 16:27 98 Room Air 08/27/23 16:00 08/27/23 11:56 99 Room Air 08/27/23 11:06 Room Air PG Care Time/CCT Total # of Minutes Spent Total Time Spent with Patient: Total time spent is greater than 50% in coordination of care (as documented) at patient's floor/unit and/or counseling patient: Coding Level of Care Code 12119 SUB INP/OBS CARE 2/35MIN Diagnoses DKA (diabetic ketoacidosis) E13.10 Diabetes mellitus complication detail: without coma Diabetes mellitus type: other specified (including KEENA) Shock R57.9 Volume depletion E86.9 Elevated troponin R79.89 Light chain myeloma C90.00 Pathological compression fracture of spine M48.50XA Pulmonary embolus I26.99 Hypertension I10 YOSI (acute kidney injury) N17.9 Self-care deficit Z78.9 Hypocalcemia E83.51 Hypophosphatemia E83.39 Hypomagnesemia E83.42 (1) DKA (diabetic ketoacidosis) Diabetes mellitus complication detail: without coma Diabetes mellitus type: other specified (including KEENA) Qualified Code(s): E13.10 - Other specified diabetes mellitus with ketoacidosis without coma
[2023-08-28 05:51] LABS: Hematocrit (blood only) 29.7 % (42.0-52.0); Hemoglobin 10.7 g/dl (14.0-18.0); Mean Corpuscular Hemoglobin 32.7 pg (25.0-34.0); Mean Corpuscular Volume 90.8 fL (80.0-100.0); Mean Platelet Volume 10.3 fL (9.4-12.4); Nucleated RBC # (auto) 0.08 K/uL (0.00-0.12); Nucleated RBC % (auto) 2.8 %; Platelet Count 152 K/uL (130-400); RDW Coefficient of Variation 14.2 % (11.5-14.5); RDW Standard Deviation 46.4 fL (36.4-46.3); Red Blood Count 3.27 M/uL (4.70-6.10); White Blood Count 2.86 K/ul (4.8-10.8)
[2023-08-28 06:08] LABS: BUN Creatinine Ratio 24.8 (10-20); Calcium 7.6 mg/dl (8.6-10.3); Creatinine Clr Calc Pharmacy 63.1 ml/min; Est GFR (African American) 79.3 ml/min; Est GFR (Non-African American) 68.4 ml/min; Potassium 4.2 mmol/L (3.5-5.1)
[2023-08-28] MEDS: APIXABAN 5 MG TABLET PO SCH (08:02)
[2023-08-28] MEDS: dexAMETHasone 4 MG TAB PO SCH (08:03)
[2023-08-28] MEDS: METOPROLOL TARTRATE 25 MG TAB PO SCH (08:03)
[2023-08-28] MEDS: INSULIN ASPART PER UNIT CHARGE SC SCH ×2 (08:35→12:27)
[2023-08-28] MEDS: LANTUS PER UNIT CHARGE SC SCH (08:36)
--- NOTE | 2023-08-28 14:06 | Discharge Summary ---
Date of Service August 28, 2023 Admission HPI Per Admitting Provider Hx limited due to confusion, friend Ori provides collateral at bedside Fevers/chills x2 weeks +diffuse body aches/myalgias Cats/pets, [facility] Diarrhea x2 weeks, loose but not liquid. No blood/melena. No change in the last week, not getting any better. 1-2 bms daily. no abdominal. +peeing daily, but less and a little darker. NO dysuria or pain. greatly decreased appetite, minimal PO intake. No dysuria, has had some decrease is voiding frequency/volume No swelling in hands/feet No chest pain CHronic caner pain mostly in his L hip and pelvis. . Thinks he might have fall today. No falls in prior few weeks. Fall today was when he was gettign ready for his doctor appointment, felt weak. No syncope/presyncope/head injury. Intermittently confused. Not oriented to year. Oriented to 'winter.' Is oriented to hospital. Infusion of chemo this morning, doesn't know what he was supposted to get. Wendy Chaudhry would be surrogate DM. [phone]. 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 Metoprolol 50 mg tartrate twice daily Ozempic not filled since 08/2022 On Tresiba 33 units Atorvastatin 40 mg Gabapentin 100 mg at bedtime Hydrochlorothiazide 25 mg daily Lisinopril 20 mg daily Metformin 500 mg a.m., 1000 mg p.m. Oxycodone every 6 hours as needed Discussed w/ on. On Xgeva denosumab. Last dose Jun 21. Missed several doses (4 appointments). Painful hip, but Nonop per ortho. is supposed to be on dexamethasone around chemo, but may be taking this continually per his friend at bedside. Discharge Data Allergies Allergy/AdvReac Type Severity Reaction Status Date / Time amoxicillin [From Augmentin] Allergy Intermediate SWELLING Verified 08/21/23 16:03 AROUND EYES clavulanic acid Allergy Intermediate SWELLING Verified 08/21/23 16:03 AROUND THE EYES Penicillins Allergy Intermediate AUGMENTIN Verified 08/21/23 16:03 - SWELLING AROUND THE EYES diflunisal AdvReac Intermediate VOMITING Verified 08/21/23 16:03 valsartan [From Diovan] AdvReac Intermediate Vomiting Verified 08/21/23 16:03 Consultations 08/21/23 16:34 ED Decision to Admit Stat 08/21/23 18:25 Consult Palliative Care Routine 08/21/23 19:48 Consult Punching Machine Operator Routine Ordered Studies 08/21/23 15:01 CT head/brain wo con Stat 08/21/23 15:16 CT abd pelvis wo con Stat CT chest diagnostic wo con Stat Hospital Course (1) DKA (diabetic ketoacidosis): Now resolved. Anion gap has closed. Glucose acceptable. Continue basal insulin therapy. -HgBA1c: 16.5 - Will need outpatient endocrinology follow up anticipate discharge tomorrow. (2) Shock: Appeared to be hypovolemic on admission. Now resolved. Pressors have been discontinued. Blood cultures - NG 48 hrs (3) Volume depletion: Resolved with IV fluids. Monitor intake and output (4) Elevated troponin: Probably supply/demand mismatch. No wall motion abnormality seen on cardiac echo. No evidence of acute coronary syndrome. (5) Light chain myeloma: Patient is on Xgeva therapy. Has missed several transfusions in the previous months. Oncology follow-up and management Dexamethasone 4mg restarted at home dose (? taking prior to chemo) (6) Pathological compression fracture of spine: Not new. Pain control measures. (7) Pulmonary embolus: In the past. Due to leg DVT. Eliquis therapy in the past but this the patient is noncompliant. Lovenox has been switched back to Eliquis. 10mg BID for 14 days then 5mg BID (8) Hypertension: Was hypotensive on admission, but resolved Low-dose metoprolol has been started and well-tolerated so far. continue metoprolol on 08/26 (9) YOSI (acute kidney injury): Resolved with IV fluid resuscitation. Monitor intake and output. Serial labs (10) Self-care deficit: Supportive care. Palliative care consultation appreciated -PT/OT (11) Hypocalcemia: Parenteral replacement. Serial labs -last replaced 08/24 (12) Hypophosphatemia: Parenteral replacement. Serial labs -Last replaced 08/25 (13) Hypomagnesemia: Parenteral replacement. Serial labs -last replaced 08/24 Plan Dispo: home health dischargre on 08/28 DVT proh: Eliquis Discharge Plan Discharge Items Patient Disposition: Home - Home Health Services Reason For Visit: DKA, HYPOTENSION,HYPOTHERMIA Discharge Diagnosis: DKA Activity: Resume your previous activity Non-emergency contact: Primary Care Provider Call non-emergency contact if: you have any medication questions Follow-up/Referrals: Maria Ines Damon DO [Primary Care Provider] - 08/31/23 9:05 am Diet: Carb Consistent or DM2 Addtl Attending Provider Instructions: Will recommend followup with Endocrinology for control of your diabetes. Recommend folllowup with PCP in 1-2 weeks. Pending Studies at Discharge: No Stand-Alone Forms: [employer], Smoking Cessation Medications and DC Order Prescriptions: New Eliquis 5 mg Tablet 5 mg PO BID Qty: 64 0RF Rx Instructions: take 2 tablets twice a day for 2 days followed by 1 tablet twice a day ongoing. metoprolol succinate 25 mg tablet extended release 24 hr 25 mg PO PM Qty: 30 0RF lisinopril 2.5 mg tablet 2.5 mg PO PM Qty: 30 0RF insulin glargine [Lantus U-100 Insulin] 100 unit/mL Solution 25 unit SC QAM Qty: 10 0RF Continued polyethylene glycol 3350 [Miralax] 17 gram powder in packet 17 g PO DAILY PRN (Reason: Constipation) (DME) Accu-Chek Josephine Plus test strp Strip See Rx Instructions .ROUTE .MEDSUPPLY Qty: 100 3RF Rx Instructions: checking TID multivitamin [Multiple Vitamins] Tablet 1 tab PO DAILY (DME) pen needle, diabetic [BD Ultra-Fine Augustina Pen Needle] 32 gauge x 5/32" needle See Rx Instructions .ROUTE .MEDSUPPLY Qty: 100 3RF Rx Instructions: Use to inject once daily atorvastatin [Lipitor] 40 mg tablet 40 mg PO HS cholecalciferol (vitamin D3) 25 mcg (1,000 unit) tablet 1,000 units PO DAILY pantoprazole 40 mg Tablet,Delayed Release (Dr/Ec) 40 mg PO QAM Qty: 60 0RF metformin 500 mg tablet 500 mg PO QAM metformin 500 mg tablet 1,000 mg PO QPM acyclovir 400 mg tablet 400 mg PO BID dexamethasone 4 mg tablet 4 mg PO DAILY Discontinued metoprolol tartrate 50 mg tablet 50 mg PO BID Qty: 180 3RF spironolacton-hydrochlorothiaz 25-25 mg tablet 1 tab PO DAILY Qty: 90 3RF diclofenac sodium 75 mg tablet,delayed release (DR/EC) 75 mg PO BID PRN (Reason: Pain) lisinopril 10 mg tablet 10 mg PO DAILY Rx Instructions: Per dr 1st hydrochlorothiazide 25 mg tablet 25 mg PO DAILY Discharge Orders: Discharge Order (Routine); Ordered 08/28/23 Ordered By: Melvin Snowden Admission Data Admit Date/Time: 08/21/23 18:16 Attending Provider: Melvin Snowden Admit Provider: Karthikeyan Callejas Primary Care Provider: Maria Ines Damon Other Providers: Karthikeyan Callejas; Charo Patel; Diamond Ibarra; [facility]; [place]; [facility] Other Interventions: Discharge Summary Assessment (RN) Last Done: 08/28/23 14:01 Coding Diagnoses DKA (diabetic ketoacidosis) E13.10 Diabetes mellitus complication detail: without coma Diabetes mellitus type: other specified (including KEENA) Shock R57.9 Volume depletion E86.9 Elevated troponin R79.89 Light chain myeloma C90.00 Pathological compression fracture of spine M48.50XA Pulmonary embolus I26.99 Hypertension I10 YOSI (acute kidney injury) N17.9 Self-care deficit Z78.9 Hypocalcemia E83.51 Hypophosphatemia E83.39 Hypomagnesemia E83.42
[2023-08-30] MEDS ORDERED: APIXABAN 5 MG TABLET PO SCH (21:00)
== END 2023-08-28 14:10 | disposition home health service (06) | DRG 637 ==
LOC: ED 14:37 → 1E 18:16 → SUATTDRO 18:16 → 1E 19:29 → 4W 08-24 06:52 → 2N 08-27 19:17

== ENCOUNTER 2023-08-31 10:56 | Inpatient (IN) ==
--- NOTE | 2023-08-31 11:16 | History & Physical Report ---
Date of Service August 31, 2023 Assessment & Plan (1) Type 2 diabetes mellitus: Plan: Type 2 diabetes mellitus, acute hyperglycemia/borderline HHS with BSG less than 600 on admission Patient with type 2 diabetes but also with history of DKA Was discharged from the hospital this past Monday. Unfortunately patient has not been able to fill his insulin needles so has taken no insulin since discharge 4 days ago. Was hyperglycemic to 400s as outpatient Has not had any lightheadedness, dizziness, nausea, vomiting - Admit BSG has increased to 540. VBG on admission is without significant metabolic acidosis. Anion gap is not elevated and bicarb is not suppressed. Treated with fluid resuscitation 5 units of IV insulin, will reassess for bolus IV insulin and progression to either subcu insulin versus gtt. based on response. DKA is not present on admitting labs.. Borderline HHS but with BSG less than 600 on Clinically volume contracted. There is no increased anion gap and bicarb is not suppressed. Treated initially with fluid resuscitation and 5 units of IV insulin Will reassess BSG post fluids and 1 hour postinitial 5 units of IV insulin and then target either insulin gtt or progression to subcu insulin based on response Patient is nontoxic. Denies any acute infectious symptoms. Is on dexamethasone for history of cancer contributing to hyperglycemia Pseudohyponatremia on admission, corrected sodium 141. (2) Confusion: Plan: Suspect metabolic encephalopathy with hyperglycemia and volume contraction No infectious symptoms. No neurologic symptoms. 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 Dexamethasone is continued. Patient is at risk of adrenal suppression and has had evidence of ureteral suppression on prior evaluations, currently blood pressure is normal and will continue regular dose dexamethasone rather than stress dose. (4) Pathological compression fracture of spine: (5) Pulmonary embolus: Plan: History of DVT/PE Patient has been compliant with his Eliquis, did take this morning of 08/31. Continue Eliquis twice daily (6) Hypertension: Plan: Thenormotensive although volume contracted on admission. Post fluid resuscitation will continue metoprolol and lisinopril. No YOSI as History of Present Illness Primary Care Provider: DO Haroon Olvera is a 68-year-old male with a history of type 2 diabetes but with a history of DKA rather than HHS, recent admission for hypovolemic shock and DKA, light chain myeloma on Xgeva but who has missed several transfusions, pathologic spine compression, and DVT/PE on Eliquis but which with patient has been poorly compliant in the past, hypertension, YOSI, and electrolyte abnormalities with nutritional depletion who presents as a direct admission for confusion with suspected DKA. Patient was seen at [facility] as an outpatient after his recent discharge on 08/28/2023. At his outpatient follow-up he was noted to have a BSG of 405 but no increased anion gap. He was seen seen as an outpatient 1-2 days later for interval follow-up of but had increased confusion, clinically dry appearance, and concern for development of DKA as patient had not been compliant with any insulin in the last 2 days since his blood sugar was in the 400s. He was at time of referral hemodynamically stable with BP 120/76, heart rate 80 although mild hypothermia in office at 36. Normal oxygen saturation. Patient was recommended for direct admission to the progressive care unit for additional workup and management. At time of direct admission patient was ordered CMP/CBC/mag/Phos/EKG due to history of hyperkalemia/chest x-ray/UA UC which were pending at time of HPI Patient seen at bedside with family present. He reports that he has felt very tired has been peeing every 20 minutes and was a little confused this morning. He feels near his normal baseline at time of direct admission assessment, but is slightly fatigued. He denies chest pain, chest pressure, shortness of breath, difficulty breathing. He has not taken any insulin at home yet, has not yet been able to take his morning Lantus as he has not been able to fill the needles. Is in the process of being switched to a pen; he has had no insulin since his discharge this past Monday. He reports he does pee very frequently normally, but has been going in small voids without any pain or dysuria about every 20 minutes which is very annoying to him. He has not been lightheaded or dizzy. No syncope or presyncope. He denies nausea, vomiting, abdominal pain, diarrhea, and constipation. Has not yet followed up regarding his next Xgeva infusion. He did take his normal morning medications this morning with the exception of Lantus as noted, and has not yet refilled his pantoprazole for GERD. He last took metformin this morning, he took his lisinopril/metoprolol last night. He has been compliant with his Eliquis since discharge and did take 5 mg this morning. He was referred over for as a direct admission due to concern for severe hyperglycemia with a BSG greater than 400 2 days ago and with no insulin use since then with the potential for progression into DKA Medical History: Reviewed Medications: Reviewed Surgical History: Reviewed Family history: Reviewed Allergies: Reviewed Social History: Denies tobacco/alcohol Code Status: DNR/DNI discussed with patient with family at bedside at time of admission. Pt reports if he were so ill his heart/breathing stopped completely and he had already he would not want cpr/intubation/invasive measures to bring him back. This is a change from prior CODE STATUS. Allergies Allergy/AdvReac Type Severity Reaction Status Date / Time amoxicillin [From Augmentin] Allergy Intermediate SWELLING Verified 08/21/23 16:03 AROUND EYES clavulanic acid Allergy Intermediate SWELLING Verified 08/21/23 16:03 AROUND THE EYES Penicillins Allergy Intermediate AUGMENTIN Verified 08/21/23 16:03 - SWELLING AROUND THE EYES diflunisal AdvReac Intermediate VOMITING Verified 08/21/23 16:03 valsartan [From Diovan] AdvReac Intermediate Vomiting Verified 08/21/23 16:03 Home Medications Medication Instructions Recorded Confirmed Type atorvastatin 40 mg tablet (Lipitor) 40 mg PO HS 08/09/19 08/31/23 History cholecalciferol (vitamin D3) 25 1,000 units PO DAILY 01/27/20 08/31/23 History mcg (1,000 unit) tablet multivitamin (Multiple Vitamins 1 tab PO DAILY 01/27/20 08/31/23 History tablet) blood sugar diagnostic (Accu-Chek #100 ea 05/23/22 08/21/23 Rx Josephine Plus test strips) pantoprazole 40 mg tablet,delayed 40 mg PO QAM #60 tabs 08/24/22 08/31/23 Rx release pen needle, diabetic 32 gauge x #100 ea 11/14/22 08/21/23 Rx 5/32" (BD Ultra-Fine Augustina Pen Needle) polyethylene glycol 3350 17 gram 17 g PO DAILY PRN Constipation 11/22/22 08/31/23 History oral powder packet (Miralax) acyclovir 400 mg tablet 400 mg PO BID 08/21/23 08/31/23 History dexamethasone 4 mg tablet 4 mg PO DAILY 08/21/23 08/31/23 History metformin 500 mg tablet 1,000 mg PO QPM 08/21/23 08/31/23 History metformin 500 mg tablet 500 mg PO QAM 08/21/23 08/31/23 History apixaban 5 mg tablet (Eliquis) 5 mg PO BID #64 tabs 08/28/23 08/31/23 Rx insulin glargine 100 unit/mL 25 unit (0.25 mL) SC QAM #10 mL 08/28/23 08/31/23 Rx subcutaneous solution (Lantus U-100 Insulin) lisinopril 2.5 mg tablet 2.5 mg PO PM #30 tabs 08/28/23 08/31/23 Rx metoprolol succinate 25 mg 25 mg PO PM #30 tabs 08/28/23 08/31/23 Rx tablet,extended release 24 hr Past Med/Surg History Medical History Edema Weakness generalized Cancer related pain Advanced care planning/counseling discussion Palliative care encounter Light chain myeloma Metabolic encephalopathy Elevated troponin level Hypercalcemia Acute renal failure Acute back pain Fatigue GE reflux Hypertension Gout Vitamin D deficiency Obstructive sleep apnea Dyslipidemia Type 2 diabetes mellitus Tendon laceration Laceration of multiple sites of left hand and fingers Chest pain Bronchitis Surgical History History of surgery on arm Family History Father Alzheimer disease Dyslipidemia Mother Diabetes Coronary heart disease Other Family history non-contributory Social History Smoking Status: Unknown if ever smoked Second Hand Exposure: No; Do You Dip or Chew Tobacco: No; Preferred Language: Slovenian Communication Ability: Impaired 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 NAD. Cooperative. HEENT: Atraumatic, normocephalic. Pupils equal and reactive to light. Vision and hearing grossly intact. Pulm: CTAB A&P. -wheezes, -rales, -rhonchi. Symmetrical chest rise. No increased work of breathing. No respiratory distress. Cardiac: RRR, -mrg. Radial pulses intact and symmetrical. Abdominal: Soft, nontender, nondistended, soft. BS present. Extremities: Warm, dry. Mild soft tissue swelling left greater than right of the lower extremities but no pitting edema is present and no recent leg change/swelling per patient sensation soft touch is intact in hands and feet without asymmetry Code Status & VTE Plan VTE Prophylaxis Plan VTE Prophylaxis will be ordered: Yes PG Care Time/CCT Total # of Minutes Spent Total Time Spent with Patient: Total time spent is greater than 50% in coordination of care (as documented) at patient's floor/unit and/or counseling patient: Coding Level of Care Code 30489 INT INP/OBS CARE 3/75MIN Diagnoses Type 2 diabetes mellitus E11.9 Confusion R41.0 Light chain myeloma C90.00 Pathological compression fracture of spine M48.50XA Pulmonary embolus I26.99 Hypertension I10
[2023-08-31 11:42] LABS: Base Excess VBG 1.3 mEq/L; HCO3 VBG 26 mmol/L; Oxygen Saturation VBG < 60.0 %; PCO2 VBG 40 mmHg (38-50); PO2 VBG 21 mmHg; pH VBG 7.42 (7.36-7.41)
[2023-08-31 11:46] LABS: Basophils # (auto) 0.01 K/uL (0.00-0.20); Basophils % (auto) 0.3 %; Hematocrit (blood only) 29.8 % (42.0-52.0); Hemoglobin 10.4 g/dl (14.0-18.0); Immature Granulocytes # (auto) 0.12 K/uL (0.01-0.20); Lymphocytes # (auto) 0.37 K/uL (1.20-3.40); Lymphocytes % (auto) 12.2 %; Mean Corpuscular Hemoglobin 32.4 pg (25.0-34.0); Mean Corpuscular Hgb Conc 34.9 g/dL (32.0-36.0); Mean Corpuscular Volume 92.8 fL (80.0-100.0); Mean Platelet Volume 10.3 fL (9.4-12.4); Monocytes % (auto) 3.3 %; Neutrophils # (auto) 2.43 K/uL (1.40-6.50); Neutrophils % (auto) 80.2 %; Nucleated RBC # (auto) 0.07 K/uL (0.00-0.12); Nucleated RBC % (auto) 2.3 %; Platelet Count 136 K/uL (130-400); RDW Coefficient of Variation 14.8 % (11.5-14.5); Red Blood Count 3.21 M/uL (4.70-6.10); White Blood Count 3.03 K/ul (4.8-10.8)
--- NOTE | 2023-08-31 11:49 | XRay Report ---
XR chest 1V portable HISTORY: admit, hypothermia, cough COMPARISON: Chest 08/21/2023. FINDINGS: No pneumothorax. No pleural effusions. Mild elevation of the right hemidiaphragm, unchanged . The heart is normal in size. No new focal lung consolidations to suggest a pneumonia. No evidence f or pulmonary edema. Sclerosis and chronic fracture deformity within the medial right clavicle and mireya ateral ribs again noted. These likely represent pathologic fractures given the patient's history of m ultiple myeloma. IMPRESSION: No significant change compared to the prior study. No acute process. ACT 112: Negative or not required by law. Electronically signed by: Keshawn Manzo M.D. 08/31/2023 11:48 AM
[2023-08-31 12:04] LABS: Albumin Globulin Ratio 1.9 (0.9-2); Albumin Level 3.2 gm/dl (3.4-5.0); Bilirubin,Total 0.9 mg/dl (0.2-1.0); Calcium 8.6 mg/dl (8.6-10.3); Creatinine Clr Calc Pharmacy 59.6 ml/min; Est GFR (African American) 83.9 ml/min; Est GFR (Non-African American) 72.4 ml/min; Globulin 1.7 gm/dl (2.5-4.0); Magnesium 1.1 mg/dl (1.7-2.4); Phosphorus 3.4 mg/dl (2.5-4.9); Total Protein 4.9 gm/dl (6.0-8.3)
[2023-08-31] MEDS ORDERED: GLUCAGON FOR INJ 1 MG VIAL SQ PRN ×2 (12:07→16:31)
[2023-08-31] MEDS ORDERED: GLUCOSE 10 TAB/TUBE PO PRN ×2 (12:07→16:31)
[2023-08-31] MEDS ORDERED: GLUCOSE 40% GEL 15 GM TUBE PO PRN ×2 (12:07→16:31)
[2023-08-31] MEDS ORDERED: DEXTROSE 50% 50 ML SYRINGE IV PRN ×2 (12:07→16:31)
[2023-08-31] MEDS ORDERED: CARBOHYDRATES FOR HYPOGLYCEMIA PO PRN ×2 (12:07→16:31)
[2023-08-31 12:11] LABS: Polychromasia 1+; Tear Drop Cells 1+
[2023-08-31] MEDS ORDERED: INSULIN HUMAN REGULAR PER UNIT 5 UNITS in SYRINGE 0 ML IV STA ×2 (12:13→14:43)
[2023-08-31] MEDS ORDERED: INSULIN HUMAN REGULAR PER UNIT 5 UNITS in SYRINGE 4.95 ML IV STA (12:14)
[2023-08-31] MEDS ORDERED: POLYETHYLENE (MIRALAX) 17 GM PACK PO PRN (12:22)
[2023-08-31] MEDS: LACTATED RINGER'S 1,000 ML IV SCH ×3 (13:14→16:25)
[2023-08-31] MEDS: MAGNESIUM SULFATE / D5W 1 GM/100 ML BAG IV SCH ×3 (13:26→17:39)
[2023-08-31] MEDS: MAGNESIUM OXIDE 400 MG TAB PO SCH ×2 (13:31→20:43)
[2023-08-31 13:52] LABS: Appearance Urine Clear (Clear); Bilirubin Urine Negative (Negative); Blood Urine Negative (Negative); Color Urine Yellow; Glucose Urine UA 3+ (Negative); Ketones Urine Negative (Negative); Leukocyte Esterase Urine Negative (Negative); Nitrite Urine Negative (Negative); Protein Urine Negative (Negative); Specific Gravity Urine 1.031 (1.000-1.030); Urobilinogen Urine Negative (Negative)
[2023-08-31] MEDS ORDERED: POTASSIUM CHLORIDE CRTAB 20 MEQ TABCR PO ONE (14:00)
[2023-08-31] MEDS ORDERED: LACTATED RINGER'S 500 ML IV ONE ×2 (14:04→22:01)
[2023-08-31] MEDS ORDERED: INSULIN HUMAN REGULAR PER UNIT 5 UNITS in SYRINGE 4.95 ML IV ONE (15:00)
[2023-08-31 16:22] LABS: BUN Creatinine Ratio 25.3 (10-20); Calcium 7.9 mg/dl (8.6-10.3); Creatinine Clr Calc Pharmacy 65.3 ml/min; Est GFR (African American) 93.6 ml/min; Est GFR (Non-African American) 80.8 ml/min; Magnesium 1.4 mg/dl (1.7-2.4); Potassium 4.7 mmol/L (3.5-5.1)
[2023-08-31] MEDS ORDERED: PHARMACY GLYCEMIC MGMT CONSULT PRN (16:31)
[2023-08-31] MEDS ORDERED: LANTUS PER UNIT CHARGE SQ ONE (16:33)
[2023-08-31] MEDS: INSULIN ASPART PER UNIT CHARGE SC SCH ×2 (17:37→20:42)
[2023-08-31] MEDS: LANTUS PER UNIT CHARGE SQ SCH (17:37)
[2023-08-31] MEDS ORDERED: MAGNESIUM SULFATE / D5W 1 GM/100 ML BAG IV ONE (18:37)
[2023-08-31] MEDS: lisinopril 2.5 MG TAB PO SCH (20:42)
[2023-08-31] MEDS: ACYCLOVIR 400 MG TAB PO SCH (20:42)
[2023-08-31] MEDS: METOPROLOL SUCC 25MG EXT REL TAB PO SCH (20:43)
[2023-08-31] MEDS: ATORVASTATIN 40 MG TAB PO SCH (20:43)
[2023-08-31] MEDS: APIXABAN 5 MG TABLET PO SCH (20:43)
[2023-09-01] MEDS: INSULIN ASPART PER UNIT CHARGE SC SCH ×6 (01:07→20:42)
[2023-09-01] MEDS: LACTATED RINGER'S 1,000 ML IV SCH ×4 (01:15→19:46)
[2023-09-01] MEDS: ACETAMINOPHEN 500 MG TAB PO PRN ×2 (01:15→22:27)
[2023-09-01] MEDS ORDERED: ONDANSETRON INJ 2 MG/ML 2 ML VIAL IV PRN (03:38)
[2023-09-01 06:34] LABS: Hematocrit (blood only) 25.4 % (42.0-52.0); Hemoglobin 8.8 g/dl (14.0-18.0); Immature Granulocytes # (auto) 0.04 K/uL (0.01-0.20); Immature Granulocytes % (auto) 1.8 %; Lymphocytes # (auto) 0.39 K/uL (1.20-3.40); Lymphocytes % (auto) 17.5 %; Mean Corpuscular Hemoglobin 31.9 pg (25.0-34.0); Mean Corpuscular Hgb Conc 34.6 g/dL (32.0-36.0); Mean Platelet Volume 10.3 fL (9.4-12.4); Monocytes # (auto) 0.15 K/uL (0.11-0.59); Monocytes % (auto) 6.7 %; Neutrophils # (auto) 1.65 K/uL (1.40-6.50); Nucleated RBC # (auto) 0.04 K/uL (0.00-0.12); Nucleated RBC % (auto) 1.8 %; Platelet Count 124 K/uL (130-400); RDW Coefficient of Variation 14.6 % (11.5-14.5); RDW Standard Deviation 48.1 fL (36.4-46.3); Red Blood Count 2.76 M/uL (4.70-6.10); White Blood Count 2.23 K/ul (4.8-10.8)
[2023-09-01 07:00] LABS: Albumin Globulin Ratio 2.1 (0.9-2); Albumin Level 2.5 gm/dl (3.4-5.0); BUN Creatinine Ratio 22.3 (10-20); Bilirubin,Total 0.6 mg/dl (0.2-1.0); Calcium 7.8 mg/dl (8.6-10.3); Est GFR (African American) 94.8 ml/min; Est GFR (Non-African American) 81.8 ml/min; Globulin 1.2 gm/dl (2.5-4.0); Magnesium 1.7 mg/dl (1.7-2.4); Phosphorus 2.3 mg/dl (2.5-4.9); Potassium 4.2 mmol/L (3.5-5.1); Total Protein 3.7 gm/dl (6.0-8.3)
--- NOTE | 2023-09-01 07:10 | Hospitalist Progress Note ---
Date of Service September 01, 2023 Assessment & Plan (1) Type 2 diabetes mellitus: Plan: Type 2 diabetes mellitus, acute hyperglycemia/borderline HHS with BSG less than 600 on admission Patient with type 2 diabetes but also with history of DKA, some medication noncompliance Was discharged from the hospital this past Monday. Was hyperglycemic to 400s as outpatient, sent to ED by PCP - was treated with insulin and IVF Is on dexamethasone for history of cancer contributing to hyperglycemia Pseudohyponatremia on admission, corrected sodium 141. -uncertain why outpatient medication was changed from tresiba 33U to lantus 25U. Patient was also discharged without needles to administer medication. If possible would continue with tresiba as patient is more familiar with usage and administration. (2) Confusion: Plan: Suspect metabolic encephalopathy with hyperglycemia and volume contraction No infectious symptoms. No neurologic symptoms. 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 Dexamethasone is continued. Patient is at risk of adrenal suppression and has had evidence of ureteral suppression on prior evaluations, currently blood pressure is normal and will continue regular dose dexamethasone rather than stress dose. (4) Pathological compression fracture of spine: (5) Pulmonary embolus: Plan: History of DVT/PE Patient has been compliant with his Eliquis, did take this morning of 08/31. Continue Eliquis twice daily (6) Hypertension: Plan: Thenormotensive although volume contracted on admission. Post fluid resuscitation will continue metoprolol and lisinopril. Admission and Anticipated Discharge Date Admission Date: August 31, 2023 Supervising Physician Co-Signing Physician Notes I personally examined the patient and verified all wylie points of history and exam, discussed case, and agree with decision making with Dr Gunter feeling good feels like if he knew what meds to be on at home he would be fine. feels like he's getting around ok. lives alone except for his cats vitals noted nad heent nc at mmm breathing unlabored no accessory muscles good effort skin no rashes no pallor or icterus neuro no focal deficits uncontrolled hyperglycemia - fortunately hyperglycemic dehydration was fairly mild and now mostly if not entirely corrected. basal/bolus insulin, asking for med rec from office - sandra await PT/OT, but probably will be able to go home - will want to review [employer] [facility] [employer] med recs carefully and try to build a definitive list for him and then review prior to discharge anticoagulated otherwise as above Subjective Patient seen at bedside, calm comfortable cooperative. States he is currently feeling well, denies nausea SOB pain confusion. He is not oriented to location. 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, however he was unsure why it was changed and used his old flexpen Physical Exam Constitutional: WD/WN, vitals as above Eyes: PERRL, conjunctivae normal, anicteric sclerae ENMT: external ear and nose normal, oropharynx normal Neck: trachea midline, no thyromegaly Respiratory: normal respiratory effort, lungs clear to auscultation Cardiovascular: RRR, no murmur, no edema Gastrointestinal (Abdomen): normal bowel sounds, soft, nontender, no h epatosplenomegaly Skin: no rashes, warm and dry Results & Data Results & Data Vital Signs (Past 12 Hours) Vital Signs Temp Pulse Pulse Resp BP Pulse Ox O2 Del Method 09/01/23 03:00 36.5 C 76 18 117/70 97 Room Air 08/31/23 23:27 74 08/31/23 22:30 36.5 C 68 18 112/66 98 Room Air 08/31/23 19:22 86 18 107/65 97 Room Air Resident Activity Tracking Resident Involvement: Resident Care Provided Care Provided: Adult Hospital Medicine
[2023-09-01] MEDS ORDERED: POTASSIUM CHLORIDE / WTR 10 MEQ/100 ML PLCT IV SCH (07:30)
[2023-09-01] MEDS: MAGNESIUM OXIDE 400 MG TAB PO SCH ×2 (08:31→20:28)
[2023-09-01] MEDS: CHOLECALCIFEROL 25 MCG (1000 UNITS) TAB PO SCH (08:31)
[2023-09-01] MEDS: APIXABAN 5 MG TABLET PO SCH ×2 (08:31→20:26)
[2023-09-01] MEDS: PANTOprazole 40 MG TAB PO SCH (08:31)
[2023-09-01] MEDS: dexAMETHasone 4 MG TAB PO SCH (08:31)
[2023-09-01] MEDS: ACYCLOVIR 400 MG TAB PO SCH ×2 (08:31→20:26)
[2023-09-01] MEDS: LANTUS PER UNIT CHARGE SQ SCH (08:37)
--- NOTE | 2023-09-01 11:26 | Pharmacy Report ---
Pharmacy Glycemic Short Note 2 - Date of Service September 01, 2023 - Glycemic Short BSG Results (Last 24 hours): 08/31/23 08/31/23 08/31/23 11:25 11:26 11:29 Glucose 539 H* POC Glucose 474 H* 463 H* 08/31/23 08/31/23 08/31/23 13:26 14:21 15:15 Glucose POC Glucose 496 H* 412 H* 364 H* 08/31/23 08/31/23 08/31/23 15:22 16:28 17:17 Glucose 349 H* POC Glucose 279 H 290 H 08/31/23 08/31/23 09/01/23 18:23 20:06 00:10 Glucose POC Glucose 394 H* 272 H 93 09/01/23 09/01/23 09/01/23 03:56 05:50 07:48 Glucose 141 H POC Glucose 169 H 145 H OUTPATIENT ANTIDIABETIC REGIMEN: * metformin 500mg QAM * metformin 1000mg QPM * Lantus 25 units SQ QAM (has not started yet since previous discharge on 08/23) * ASSESSMENT: * Haroon is a 68 YOM admitted with hyperglycemia and concern for DKA by outpatient provider. He has a history of typ 2 diabetes mellitus. Pharmacy has been consulted for glycemic management while inpatient. * On admission BSG was 474, he was treated with two IV regular insulin bolus (each 5 units) and given home dose of Lantus. * BSGs trended down overnight, with minimal correction needed on overnight checks. * Fasting BSG acceptable this AM. Continue basal dosage from previous admission. He is ordered his home oral dexamethasone, no additional glycemic stressors noted at this time. * Novolog initiated at a weight based stress between 2-3. Appears to correct well, will continue carbohydrate ratio at this time and monitor for oral steroid effects. PLAN FOR INPATIENT GLYCEMIC CONTROL: * Hold outpatient oral diabetes medications * Basal insulin * Lantus 25 units SQ QAM * Bolus insulin * NovoLog per scale ACHS or Q6hrs while NPO * Goal Range: Low 110 mg/dL - High 140 mg/dL * Correction Factor: 25 mg/dL/unit * Nutritional / Prandial insulin per carb ratio of 1 unit per 8 grams CHO consumed
--- NOTE | 2023-09-01 13:04 | Billing Data ---
Date of Service September 01, 2023 Coding Level of Care Code 05387 SUB INP/OBS CARE
[2023-09-01] MEDS: METOPROLOL SUCC 25MG EXT REL TAB PO SCH (20:25)
[2023-09-01] MEDS: ATORVASTATIN 40 MG TAB PO SCH (20:26)
[2023-09-01] MEDS: lisinopril 2.5 MG TAB PO SCH (20:27)
[2023-09-02] MEDS: LACTATED RINGER'S 1,000 ML IV SCH ×2 (01:44→08:38)
--- NOTE | 2023-09-02 06:24 | Electrocardiogram Report ---
Test Reason : Blood Pressure : / mmHG Vent. Rate : 103 BPM Atrial Rate : 103 BPM P-R Int : 136 ms QRS Dur : 078 ms QT Int : 334 ms P-R-T Axes : 043 -52 058 degrees QTc Int : 437 ms Sinus tachycardia Left anterior fascicular block Possible Lateral infarct , age undetermined Abnormal ECG When compared with ECG of 21-AUG-2023 20:19, No significant change was found Confirmed by Sloan Castellano ([id number]) on 09/02/2023 6:24:11 AM Referred By: Karthikeyan Callejas Confirmed By:Sloan Castellano
[2023-09-02 06:48] LABS: Albumin Level 2.4 gm/dl (3.4-5.0); Bilirubin,Total 0.5 mg/dl (0.2-1.0); Calcium 7.5 mg/dl (8.6-10.3); Magnesium 1.5 mg/dl (1.7-2.4); Potassium 4.3 mmol/L (3.5-5.1)
[2023-09-02 06:54] LABS: Albumin Globulin Ratio 1.8 (0.9-2); BUN Creatinine Ratio 28.9 (10-20); Creatinine Clr Calc Pharmacy 75.9 ml/min; Est GFR (African American) 99.9 ml/min; Est GFR (Non-African American) 86.2 ml/min; Globulin 1.3 gm/dl (2.5-4.0); Total Protein 3.7 gm/dl (6.0-8.3)
[2023-09-02 08:00] LABS: Hematocrit (blood only) 27.3 % (42.0-52.0); Hemoglobin 9.2 g/dl (14.0-18.0); Immature Granulocytes # (auto) 0.04 K/uL (0.01-0.20); Immature Granulocytes % (auto) 1.8 %; Lymphocytes # (auto) 0.44 K/uL (1.20-3.40); Lymphocytes % (auto) 19.6 %; Mean Corpuscular Hemoglobin 31.9 pg (25.0-34.0); Mean Corpuscular Hgb Conc 33.7 g/dL (32.0-36.0); Mean Corpuscular Volume 94.8 fL (80.0-100.0); Mean Platelet Volume 10.4 fL (9.4-12.4); Monocytes # (auto) 0.15 K/uL (0.11-0.59); Monocytes % (auto) 6.7 %; Neutrophils # (auto) 1.61 K/uL (1.40-6.50); Neutrophils % (auto) 71.9 %; Nucleated RBC # (auto) 0.02 K/uL (0.00-0.12); Nucleated RBC % (auto) 0.9 %; Platelet Count 113 K/uL (130-400); RDW Coefficient of Variation 15.1 % (11.5-14.5); RDW Standard Deviation 51.1 fL (36.4-46.3); Red Blood Count 2.88 M/uL (4.70-6.10); White Blood Count 2.24 K/ul (4.8-10.8)
[2023-09-02] MEDS: MAGNESIUM SULFATE / D5W 1 GM/100 ML BAG IV SCH ×2 (08:05→09:46)
[2023-09-02] MEDS: MAGNESIUM OXIDE 400 MG TAB PO SCH (08:11)
[2023-09-02] MEDS: dexAMETHasone 4 MG TAB PO SCH (08:11)
[2023-09-02] MEDS: CHOLECALCIFEROL 25 MCG (1000 UNITS) TAB PO SCH (08:11)
[2023-09-02] MEDS: ACYCLOVIR 400 MG TAB PO SCH (08:11)
[2023-09-02] MEDS: APIXABAN 5 MG TABLET PO SCH (08:12)
[2023-09-02] MEDS: PANTOprazole 40 MG TAB PO SCH (08:12)
--- NOTE | 2023-09-02 08:51 | Discharge Summary ---
Date of Service September 02, 2023 Admission HPI Per Admitting Provider Haroon is a 68-year-old male with a history of type 2 diabetes but with a history of DKA rather than HHS, recent admission for hypovolemic shock and DKA, light chain myeloma on Xgeva but who has missed several transfusions, pathologic spine compression, and DVT/PE on Eliquis but which with patient has been poorly compliant in the past, hypertension, YOSI, and electrolyte abnormalities with nutritional depletion who presents as a direct admission for confusion with suspected DKA. Patient was seen at [facility] as an outpatient after his recent discharge on 08/28/2023. At his outpatient follow-up he was noted to have a BSG of 405 but no increased anion gap. He was seen seen as an outpatient 1-2 days later for interval follow-up of but had increased confusion, clinically dry appearance, and concern for development of DKA as patient had not been compliant with any insulin in the last 2 days since his blood sugar was in the 400s. He was at time of referral hemodynamically stable with BP 120/76, heart rate 80 although mild hypothermia in office at 36. Normal oxygen saturation. Patient was recommended for direct admission to the progressive care unit for additional workup and management. At time of direct admission patient was ordered CMP/CBC/mag/Phos/EKG due to history of hyperkalemia/chest x-ray/UA UC which were pending at time of HPI Patient seen at bedside with family present. He reports that he has felt very tired has been peeing every 20 minutes and was a little confused this morning. He feels near his normal baseline at time of direct admission assessment, but is slightly fatigued. He denies chest pain, chest pressure, shortness of breath, difficulty breathing. He has not taken any insulin at home yet, has not yet been able to take his morning Lantus as he has not been able to fill the needles. Is in the process of being switched to a pen; he has had no insulin since his discharge this past Monday. He reports he does pee very frequently normally, but has been going in small voids without any pain or dysuria about every 20 minutes which is very annoying to him. He has not been lightheaded or dizzy. No syncope or presyncope. He denies nausea, vomiting, abdominal pain, diarrhea, and constipation. Has not yet followed up regarding his next Xgeva infusion. He did take his normal morning medications this morning with the exception of Lantus as noted, and has not yet refilled his pantoprazole for GERD. He last took metformin this morning, he took his lisinopril/metoprolol last night. He has been compliant with his Eliquis since discharge and did take 5 mg this morning. He was referred over for as a direct admission due to concern for severe hyperglycemia with a BSG greater than 400 2 days ago and with no insulin use since then with the potential for progression into DKA Medical History: Reviewed Medications: Reviewed Surgical History: Reviewed Family history: Reviewed Allergies: Reviewed Social History: Denies tobacco/alcohol Code Status: DNR/DNI discussed with patient with family at bedside at time of admission. Pt reports if he were so ill his heart/breathing stopped completely and he had already he would not want cpr/intubation/invasive measures to bring him back. This is a change from prior CODE STATUS. Admission Exam Per Admitting Provider General: A&Ox3. NAD. Cooperative. HEENT: Atraumatic, normocephalic. Pupils equal and reactive to light. Vision and hearing grossly intact. Pulm: CTAB A&P. -wheezes, -rales, -rhonchi. Symmetrical chest rise. No increased work of breathing. No respiratory distress. Cardiac: RRR, -mrg. Radial pulses intact and symmetrical. Abdominal: Soft, nontender, nondistended, soft. BS present. Extremities: Warm, dry. Mild soft tissue swelling left greater than right of the lower extremities but no pitting edema is present and no recent leg change/swelling per patient sensation soft touch is intact in hands and feet without asymmetry Principal Diagnosis Acute hyperglycemia Discharge Exam Constitutional WD/WN, vitals as above Eyes PERRL, conjunctivae normal, anicteric sclerae ENMT external ear and nose normal, oropharynx normal Neck trachea midline, no thyromegaly Respiratory normal respiratory effort, lungs clear to auscultation Cardiovascular RRR, no murmur, no edema Gastrointestinal (Abdomen) normal bowel sounds, soft, nontender, no hepatosplenomegaly Skin no rashes, warm and dry Discharge Data Allergies Allergy/AdvReac Type Severity Reaction Status Date / Time amoxicillin [From Augmentin] Allergy Intermediate SWELLING Verified 08/21/23 16:03 AROUND EYES clavulanic acid Allergy Intermediate SWELLING Verified 08/21/23 16:03 AROUND THE EYES Penicillins Allergy Intermediate AUGMENTIN Verified 08/21/23 16:03 - SWELLING AROUND THE EYES diflunisal AdvReac Intermediate VOMITING Verified 08/21/23 16:03 valsartan [From Diovan] AdvReac Intermediate Vomiting Verified 08/21/23 16:03 Hospital Course (1) Type 2 diabetes mellitus: -Pt admitted for acute hyperglycemia/borderline HHS with BSG less than 600 on admission -Noted history of medication non-adherence and did not have access to needles for basal insulin leading up to admission -Treated with insulin and IVF during hospitalization -BSG improved to mid-100s and stable by time of discharge -Pt discharged on Lantus 25u daily + Novolog 5u pre-meal (2) Confusion: Noted on admission, likely due to metabolic encephalopathy with hyperglycemia and volume contraction -Resolved at time of discharge (3) Light chain myeloma: -History of multiple myeloma, on Keytruda but has missed several infusions in the past Multiple likely pathologic fractures noted on CXR on admission and lytic lesion of the right clavicle -Oncology outpatient f/u advised -Continue home dexamethasone 4 mg daily given elevated risk of adrenal suppression (4) Pathological compression fracture of spine: -No acute issues during stay (5) Pulmonary embolus: History of DVT/PE noted -Continued Eliquis (6) Hypertension: -Normotensive during hospitalization -Metoprolol + lisinopril held on admission due to volume contraction, resume on discharge Total Time Total Time Spent Total Time Spent (In Minutes): <30 Discharge Plan Discharge Items Patient Disposition: Home - Self-Care Reason For Visit: HYPERGLYCEMIA, CONFUSION, SUSPECTED DKA DIRECT ADM Discharge Diagnosis: Hyperglycemia Activity: Resume your previous activity Non-emergency contact: Primary Care Provider Call non-emergency contact if: you have any medication questions Follow-up/Referrals: Maria Ines Damon, [Primary Care Provider] - Diet: Carb Consistent or DM2 Addtl Attending Provider Instructions: medication confusion -it is REALLY common to have confusion about what medications you should be on compared to what you're actually on. this is only amplified because different medical records don't actually communicate electronically and then it's really easy to have a different "accurate" list in each system -looking at both lists as well as what i can tell about your situation, we've tried to clean it up. the list we're sending you home with today should be a good "reset" - obviously things change and people's health evolves, so i would not look at this as a "forever" list as much as a "accurate now" list Insulin -You will take Lantus 25 units daily. This will replace your previous Tresiba prescription. -We are also adding a short-acting insulin called Novolog. You will take 5 units of Novolog before each meal as this will help reduce your blood sugar levels from the carbohydrates in the meal. This dose may need to be adjusted in the future, but for now- please take 5 units before each meal. discrepencies: i noticed a few things on your [facility] list that are not on your [facility] list -diclofenac -- this is an anti-inflammatory that is used for pain. it's reasonable to use as needed, but i would only take it if you have pain and have not had improvement with tylenol (anti-inflammatories are relatively safe in sporadic use, but the longer someone uses them pmh-to-sgi-out the more it can lead to stomach ulcers and kidney problems) -gabapentin - this is a medicine to quiet pain chronically. it can sometimes be helpful, but not always "game changing" -- what i would say with this one is when you get home, look at what you're actively taking. if you've been taking it, continue it. if you haven't been taking it, then i wouldn't worry about restarting it until/unless you have uncontrolled pain and talk with Dr Damon/Dr Aden and mutually decide it might be helpful -hydrochlorothiazide - this is a blood pressure medication. it can be quite helpful in controlling blood pressure and reducing heart attacks/strokes. at the same time, it is a diuretic, and with everything else you have going on, fighting against dehydration can be a real issue. further, your blood pressures have been quite good in the hospital without it. because of all of that, we don't have it on your list here, and if you have been taking it at home, i would recommend you not take it moving forward venous stasis -as we discussed, your leg swelling appears to be venous stasis -venous stasis is really more of a "floppy vein" problem than a fluid overload problem. when people think about circulation, they tend to think of arteries (high pressure, not leaky, like a garden hose). veins are a whole different animal - veins are thin walled, very distensible, leaky when they get overfilled (which is what leads to the swelling you can notice) and veins are a low pressure system (if you think arteries as a 110/70 pressure, veins - even in the circulation right before veins get back to your heart - might be ~10-12). also unlike arteries - where the heart is an active pump keeping the fluid moving - veins have no active pump "built in" - the way vein fluid gets mobilized is mostly through muscle contraction (movement, walking, etc) -because diuretics work at the kidney -which is really at "the far end" of the artery side of circulation, usually what we see is that diuretics for venous stasis related swelling cause a lot of dehydration for maybe a little improvement in swelling - ie for most people the downsides far outweigh the upsides -the best management for venous stasis for most people is actually not "really medical" and is more practical: -avoid needless fluid retention: because the veins can pool fluid, you can look at veins being where fluid hides out when we do retain it. when our kidneys see sodium, they hold on to water. because of that, when our kidney see a lot of sodium, they hold on to a TON of water. typically we get too much sodium from prepackaged foods (way more than adding salt / using a salt shaker) - the sodium is added as a preservative and flavoring agent - and often there's a lot. a reasonable goal would be to try to stay at less than 2000mg of sodium a day - this should help to protect you from excess fluid retention - and make the whole thing easier -movement: like we discussed, the way God builds us, the main "pump" for venous fluid is muscle contraction - so the best way to move that fluid is to do as much walking and muscle contraction as you can. sometimes it can be truly remarkable how much muscle contraction/movement/walking can reduce swelling. to that end, i would look at walking around your house as a more potent treatment for the fluid than a diuretic -compression/elevation: compression stockings or keeping your legs elevated can also help - just by squeezing the fluid out some, or letting gravity track it back to more central circulation. these are far less beneficial for most people than movement, but can be helpful and complimentary Pending Studies at Discharge: No Stand-Alone Forms: My [facility] Medications and DC Order Prescriptions: New (DME) pen needle, diabetic 29 gauge needle See Rx Instructions .Route Qty: 100 0RF Rx Instructions: As directed insulin aspart U-100 [Novolog FlexPen U-100 Insulin] 100 unit/mL (3 mL) insulin pen 5 unit subcut TID Qty: 15 2RF Rx Instructions: Take 5 units before breakfast, lunch and dinner Continued polyethylene glycol 3350 [Miralax] 17 gram powder in packet 17 g PO DAILY PRN (Reason: Constipation) (DME) Accu-Chek Josephine Plus test strp Strip See Rx Instructions .ROUTE .MEDSUPPLY Qty: 100 3RF Rx Instructions: checking TID multivitamin [Multiple Vitamins] Tablet 1 tab PO DAILY (DME) pen needle, diabetic [BD Ultra-Fine Augustina Pen Needle] 32 gauge x 5/32" needle See Rx Instructions .ROUTE .MEDSUPPLY Qty: 100 3RF Rx Instructions: Use to inject once daily atorvastatin [Lipitor] 40 mg tablet 40 mg PO HS cholecalciferol (vitamin D3) 25 mcg (1,000 unit) tablet 1,000 units PO DAILY pantoprazole 40 mg Tablet,Delayed Release (Dr/Ec) 40 mg PO QAM Qty: 60 0RF metformin 500 mg tablet 500 mg PO QAM metformin 500 mg tablet 1,000 mg PO QPM acyclovir 400 mg tablet 400 mg PO BID dexamethasone 4 mg tablet 4 mg PO DAILY Eliquis 5 mg Tablet 5 mg PO BID Qty: 64 0RF Rx Instructions: take 2 tablets twice a day for 2 days followed by 1 tablet twice a day ongoing. metoprolol succinate 25 mg tablet extended release 24 hr 25 mg PO PM Qty: 30 0RF lisinopril 2.5 mg tablet 2.5 mg PO PM Qty: 30 0RF insulin glargine [Lantus U-100 Insulin] 100 unit/mL Solution 25 unit SC QAM Qty: 10 0RF Rx Instructions: has not yet picked up/filled insulin/syringes as outpt Discharge Orders: Discharge Order (Routine); Ordered 09/02/23 Ordered By: Rhea Reyes Admission Data Admit Date/Time: 08/31/23 11:04 Attending Provider: Lloyd Fregoso Admit Provider: Karthikeyan Callejas Primary Care Provider: Maria Ines Damon Other Providers: [facility],Home Healthcare; [facility],Home Health Other Interventions: Discharge Summary Assessment (RN) Last Done: 09/02/23 12:27 Supervising Physician Co-Signing Physician Notes I personally examined the patient and verified all wylie points of history and exam, discussed case, and agree with decision making with Dr Gunter feeling good discussed meds he expresses understanding. walking well. feels up to going home. vitals noted nad heent nc at mmm breathing unlabored no accessory muscles good effort skin no rashes no pallor or icterus neuro no focal deficits uncontrolled hyperglycemia - improving. reviewed meds. has venous stasis - discussed. safe/stable for home. discussed insulins as well. see med rec and dc instructions anticoagulated otherwise as above outpt PCP f/u Resident Activity Tracking Resident Involvement: Resident Care Provided Care Provided: Adult Hospital Medicine
[2023-09-02] MEDS: LANTUS PER UNIT CHARGE SQ SCH (09:42)
[2023-09-02] MEDS: INSULIN ASPART PER UNIT CHARGE SC SCH ×2 (09:42→13:08)
--- NOTE | 2023-09-02 15:52 | Billing Data ---
Date of Service September 02, 2023 Coding Level of Care Code 52980 IN/OBS DISCH 30 MIN/LESS
== END 2023-09-02 14:43 | disposition home health service (06) | DRG 637 ==
LOC: SUATTDRO 11:04 → 2W 11:04

== ENCOUNTER 2023-12-01 20:41 | Inpatient (IN) ==
[2023-12-01] MEDS: ACETAMINOPHEN 1,000 MG/100 ML VIAL IV STA (21:02)
[2023-12-01] MEDS: CEFEPIME 2,000 MG/20 ML VIAL IV STA (21:03)
[2023-12-01 21:15] LABS: iSTAT Creatinine 1.1 mg/dl (0.6-1.3); iSTAT Hemoglobin 10.5 g/dl (14.0-18.0); iSTAT Ionized Calcium 1.15 mmol/l (1.12-1.32); iSTAT Potassium 4.4 mmol/L (3.3-5.0)
[2023-12-01] MEDS: SODIUM CHLORIDE 0.9% 500 ML IV ONE (21:46)
[2023-12-01] MEDS: SODIUM CHLORIDE 0.9% 1,000 ML IV SCH (21:47)
[2023-12-01 21:59] LABS: Basophils # (auto) 0.02 K/uL (0.00-0.20); Basophils % (auto) 0.6 %; Hematocrit (blood only) 31.2 % (42.0-52.0); Hemoglobin 10.9 g/dl (14.0-18.0); Immature Granulocytes # (auto) 0.06 K/uL (0.01-0.20); Immature Granulocytes % (auto) 1.7 %; Lymphocytes # (auto) 0.57 K/uL (1.20-3.40); Lymphocytes % (auto) 16.5 %; Mean Corpuscular Hgb Conc 34.9 g/dL (32.0-36.0); Mean Corpuscular Volume 91.5 fL (80.0-100.0); Mean Platelet Volume 10.2 fL (9.4-12.4); Monocytes # (auto) 0.22 K/uL (0.11-0.59); Monocytes % (auto) 6.4 %; Neutrophils # (auto) 2.59 K/uL (1.40-6.50); Neutrophils % (auto) 74.8 %; Nucleated RBC # (auto) 0.05 K/uL (0.00-0.12); Nucleated RBC % (auto) 1.4 %; Platelet Count 164 K/uL (130-400); RDW Coefficient of Variation 16.1 % (11.5-14.5); RDW Standard Deviation 53.7 fL (36.4-46.3); Red Blood Count 3.41 M/uL (4.70-6.10); White Blood Count 3.46 K/ul (4.8-10.8)
--- NOTE | 2023-12-01 22:04 | XRay Report ---
SINGLE VIEW CHEST CLINICAL HISTORY: Sepsis FINDINGS: An AP, portable, upright chest radiograph is compared to study dated 08/31/2023 and correlate d with chest CT dated 08/21/2023. The heart is top normal for projection noting atherosclerotic calcif ication of the thoracic aorta. There is pulmonary vascular congestion. Airspace opacities are noted a t the left lung base. No large pleural effusion or pneumothorax is seen. The skeletal structures are osteopenic. There are chronic/healed bilateral rib fractures. IMPRESSION: 1. Pulmonary vascular congestion. 2. Airspace opacities at the left lung base could represent atelectasis versus pneumonia/aspiration p neumonitis. Clinical correlation will be required and radiographic follow-up to resolution is recomme nded ACT 112: Negative or not required by law. Electronically signed by: Poncho Hightower M.D. 12/01/2023 10:01 PM
--- NOTE | 2023-12-01 22:06 | CT Scan Report ---
CT SCAN OF THE BRAIN WITHOUT IV CONTRAST CLINICAL HISTORY: Change in mental status. COMPARISON STUDY: CT of the brain dated 08/21/2023. TECHNIQUE: Unenhanced axial CT scan of the brain is performed from the vertex to the skull base. A do se lowering technique was utilized adhering to the principles of ALARA. The patient was scanned twice due to motion artifact. CT DOSE: 1258.01 mGy.cm FINDINGS: Brain parenchyma: There is age-related involutional change noting minimal microangiopathic disease. T here is no hemorrhage, mass effect, or evidence of acute territorial ischemia by CT criteria. [place]-wh ite matter differentiation is preserved. No extra-axial fluid collection is seen. Ventricles, sulci, cisterns: Prominent secondary to involutional change. Intracranial vasculature: There is atherosclerotic calcification of the cavernous carotid and vertebr al arteries. Calvarium: Unremarkable. Sinuses and mastoids: The visualized paranasal sinuses are clear. The mastoid air cells are well pneu matized. Orbits: The bony orbits are grossly intact. IMPRESSION: There is no hemorrhage, mass effect, or evidence of acute territorial ischemia by CT kylee melendez. ACT 112: Negative or not required by law. Electronically signed by: Poncho Hightower M.D. 12/01/2023 10:04 PM
[2023-12-01 22:07] LABS: INR 1.1 (0.9-1.1); Partial Thromboplastin Time 26 Seconds (21-31); Prothrombin Time 11.4 Seconds (9.0-12.0)
[2023-12-01 22:14] LABS: Base Excess VBG -3.6 mEq/L; HCO3 VBG 21 mmol/L; Oxygen Saturation VBG 90.7 %; PCO2 VBG 34 mmHg (38-50); PO2 VBG 55 mmHg; pH VBG 7.39 (7.36-7.41)
[2023-12-01 22:31] LABS: BUN Creatinine Ratio 17.6 (10-20); Calcium 7.9 mg/dl (8.6-10.3); Creatinine Clr Calc Pharmacy 70.6 ml/min; Est GFR (African American) 80.2 ml/min; Est GFR (Non-African American) 69.2 ml/min; Potassium 4.1 mmol/L (3.5-5.1)
[2023-12-01 22:33] LABS: Albumin Level 2.8 gm/dl (3.4-5.0); Bilirubin Direct 0.1 mg/dl (0-0.2); Bilirubin,Total 0.6 mg/dl (0.2-1.0); Magnesium 0.9 mg/dl (1.7-2.4); Total Protein 4.8 gm/dl (6.0-8.3)
[2023-12-01 22:40] LABS: Troponin I High Sensitivity 60.4 pg/ml (0-20)
[2023-12-01] MEDS: MAGNESIUM SULFATE / D5W 1 GM/100 ML BAG IV SCH (22:41)
[2023-12-01 22:54] LABS: Appearance Urine Clear (Clear); Bacteria Urine Automated None Seen (None Seen); Bilirubin Urine Negative (Negative); Blood Urine Negative (Negative); Color Urine Yellow; Epithelial Cell Urine Auto 0-2 /hpf (0-2); Glucose Urine UA 2+ (Negative); Ketones Urine Trace (Negative); Leukocyte Esterase Urine Negative (Negative); Nitrite Urine Negative (Negative); Protein Urine 1+ (Negative); RBC Urine Automated 0-2 /hpf (0-2); Specific Gravity Urine 1.021 (1.000-1.030); Urobilinogen Urine Negative (Negative); WBC Urine Automated 0-5 /hpf (0-5)
[2023-12-01 22:56] LABS: Adenovirus PCR Not Detected (NotDetected); Bordetella parapertussis PCR Not Detected (NotDetected); Bordetella pertussis PCR Not Detected (NotDetected); Chlamydia pneumoniae PCR Not Detected (NotDetected); Coronavirus 229E PCR Not Detected (NotDetected); Coronavirus CoV-2 (COVID19)PCR Not Detected (NotDetected); Coronavirus HKU1 PCR Not Detected (NotDetected); Coronavirus NL63 PCR Not Detected (NotDetected); Coronavirus OC43PCR Not Detected (NotDetected); Human Metapneumovirus PCR Not Detected (NotDetected); Influenza A PCR Not Detected (NotDetected); Influenza B PCR Not Detected (NotDetected); Mycoplasma pneumoniae PCR Not Detected (NotDetected); Parainfluenza Virus 1 PCR Not Detected (NotDetected); Parainfluenza Virus 2 PCR Not Detected (NotDetected); Parainfluenza Virus 3 PCR Not Detected (NotDetected); Parainfluenza Virus 4 PCR Not Detected (NotDetected); Respiratory Syncytial VirusPCR Not Detected (NotDetected); Rhinovirus/Enterovirus PCR Not Detected (NotDetected)
--- NOTE | 2023-12-01 23:13 | Emergency Department Note ---
History of Present Illness General Chief complaint: Fever Stated complaint: AMS, Tachycardia, Fever Time Seen by Provider: 12/01/23 20:48 History of Present Illness Provider complaint: Fever Onset (ago): day(s) 1 Maximum Pain Intensity: 5 68-year-old male presents emergency department for fever. Patient is on chemotherapy for cancer. He states his last chemotherapy session was last week. He reports having a fever earlier today. No falls or traumas. No cough. Patient does report some difficulty breathing. Patient is on Eliquis and has been compliant with Eliquis. No nausea vomiting diarrhea or abdominal pain. Home Medications Medication Instructions Recorded Confirmed Type atorvastatin 40 mg tablet (Lipitor) 40 mg PO HS 08/09/19 08/31/23 History cholecalciferol (vitamin D3) 25 1,000 units PO DAILY 01/27/20 08/31/23 History mcg (1,000 unit) tablet multivitamin (Multiple Vitamins 1 tab PO DAILY 01/27/20 08/31/23 History tablet) blood sugar diagnostic (Accu-Chek #100 ea 05/23/22 08/21/23 Rx Josephine Plus test strips) pantoprazole 40 mg tablet,delayed 40 mg PO QAM #60 tabs 08/24/22 08/31/23 Rx release pen needle, diabetic 32 gauge x #100 ea 11/14/22 08/21/23 Rx 5/32" (BD Ultra-Fine Augustina Pen Needle) polyethylene glycol 3350 17 gram 17 g PO DAILY PRN Constipation 11/22/22 08/31/23 History oral powder packet (Miralax) acyclovir 400 mg tablet 400 mg PO BID 08/21/23 08/31/23 History dexamethasone 4 mg tablet 4 mg PO DAILY 08/21/23 08/31/23 History metformin 500 mg tablet 1,000 mg PO QPM 08/21/23 08/31/23 History metformin 500 mg tablet 500 mg PO QAM 08/21/23 08/31/23 History apixaban 5 mg tablet (Eliquis) 5 mg PO BID #64 tabs 08/28/23 08/31/23 Rx insulin glargine 100 unit/mL 25 unit (0.25 mL) SC QAM #10 mL 08/28/23 08/31/23 Rx subcutaneous solution (Lantus U-100 Insulin) lisinopril 2.5 mg tablet 2.5 mg PO PM #30 tabs 08/28/23 08/31/23 Rx metoprolol succinate 25 mg 25 mg PO PM #30 tabs 08/28/23 08/31/23 Rx tablet,extended release 24 hr insulin aspart U-100 100 unit/mL 5 unit (0.05 mL) subcut TID #15 mL 09/02/23 Rx (3 mL) subcutaneous pen (Novolog FlexPen U-100 Insulin aspart) pen needle, diabetic 29 gauge #100 ea 09/02/23 Rx Allergies Allergy/AdvReac Type Severity Reaction Status Date / Time amoxicillin [From Augmentin] Allergy Intermediate SWELLING Verified 08/21/23 16:03 AROUND EYES clavulanic acid Allergy Intermediate SWELLING Verified 08/21/23 16:03 AROUND THE EYES Penicillins Allergy Intermediate AUGMENTIN Verified 08/21/23 16:03 - SWELLING AROUND THE EYES diflunisal AdvReac Intermediate VOMITING Verified 08/21/23 16:03 valsartan [From Diovan] AdvReac Intermediate Vomiting Verified 08/21/23 16:03 Past Med/Surg History Medical History Edema Weakness generalized Cancer related pain Advanced care planning/counseling discussion Palliative care encounter Light chain myeloma Metabolic encephalopathy Elevated troponin level Hypercalcemia Acute renal failure Acute back pain Fatigue GE reflux Hypertension Gout Vitamin D deficiency Obstructive sleep apnea Dyslipidemia Type 2 diabetes mellitus Tendon laceration Laceration of multiple sites of left hand and fingers Chest pain Bronchitis Surgical History History of surgery on arm Family History Father Alzheimer disease Dyslipidemia Mother Diabetes Coronary heart disease Other Family history non-contributory Social History Smoking Status: Never smoker Second Hand Exposure: No; Do You Dip or Chew Tobacco: No; Hx Alcohol Use: No Hx Substance Use: No Preferred Language: Citizen Of [place] Communication Ability: Effective Hide Handler Required: No Beliefs That Will Affect Care: None marital status: Single marital status details: no children Current Living Situation: Alone Current Living Situation Comment: lives with mother current occupational status: retired Feels Safe at Home: Yes Assistive Devices: Crutches and Walker Physical Exam Vital Signs Vital Signs - 24 hr 05/03/24 20:44 12/01/23 20:49 12/01/23 20:49 Temperature 39.2 C H 39.2 C H Temperature Source Oral Oral Pulse Rate 155 H 154 H Pulse Rate [Apical] 154 H Respiratory Rate 29 H 29 H Blood Pressure 107/77 Blood Pressure [Right Arm] 107/77 Blood Pressure Mean 87 Blood Pressure Mean [Right Arm] 87 Pulse Oximetry 95 95 Oxygen Delivery Method Nasal Cannula Nasal Cannula Oxygen Flow Rate 6 6 Sepsis Recent Fever Within 48 Hours Yes Sepsis New/Unexplained Change in Mental Status Yes Sepsis Action Taken by Nursing Physician Notified 12/01/23 21:22 12/01/23 21:22 12/01/23 23:00 Temperature 36.8 C Temperature Source Oral Pulse Rate Pulse Rate [Apical] 144 H 118 H Respiratory Rate 31 H 23 Blood Pressure Blood Pressure [Right Arm] 95/56 L 106/67 Blood Pressure Mean Blood Pressure Mean [Right Arm] 69 80 Pulse Oximetry 97 97 91 Oxygen Delivery Method Nasal Cannula Room Air Nasal Cannula Oxygen Flow Rate 6 6 Sepsis Recent Fever Within 48 Hours Sepsis New/Unexplained Change in Mental Status Sepsis Action Taken by Nursing Physical Exam HENT: Exam performed. - Head: Normocephalic and atraumatic. EYES: Conjunctivae and EOM are normal. Right eye exhibits no discharge. Left eye exhibits no discharge. No scleral icterus. NECK: Normal range of motion. Neck supple. No JVD present. CV: Tachycardic rate, regular rhythm, normal heart sounds and intact distal pulses. There is no peripheral edema. Palpable radial pulses bue. PULM/CHEST: Rhonchi bilaterally. Inspiratory rales at the right base. ABD: The abdomen is soft. There is no tenderness. NEURO: Motor and sensation grossly intact. SKIN: Skin is warm and dry. He is not diaphoretic. PSYCH: normal mood and affect. Behavior is normal. Judgment and thought content normal. Course Course 2047: The patient was evaluated in room C10. A complete history and physical exam was performed Cardiac monitoring: An order was placed for continuous cardiac monitoring. The monitor shows a rate of 150 with sinus tachycardia rhythm interpreted by me Patient hypoxic on room air supplemental oxygen saturation applied which improved the patient's oxygen saturation. Sepsis protocols initiated. Patient will be treated with 30 cc/kg of IV fluids. Broad-spectrum antibiotics will be initiated. 2305: Vital signs stable supplemental oxygen. Labs show white blood cell count of 3.46 hemoglobin 10.9 platelet count 164 coagulation studies within normal limits venous pH 7.39 venous pCO2 of 34. Magnesium 0.9. High-sensitivity troponin 60.4. CT of the head within normal limits. Imaging shows pulmonary vascular congestion but does show airspace opacities at the left lung base which could represent atelectasis versus pneumonia. Magnesium repletion started in the emergency department. Cefepime ordered in the emergency department. Patient [facility] be [facility]. Debbi bautista. Administered Medications Magnesium Sulfate/Dextrose (Magnesium Sulfate / D5w) 1 gm in 100 mls @ 100 mls/hr IV Q1H TOMA Stop: 12/02/23 00:31 Last Infusion: 12/01/23 23:47 Dose: Infused Documented By: Admin: 12/01/23 22:41 Dose: 100 mls/hr Documented By: LIBBY Discontinued Medications Acetaminophen (Ofirmev) 1,000 mg in 100 mls @ 400 mls/hr IV NOW STA Stop: 12/01/23 21:10 Last Infusion: 12/01/23 21:18 Dose: Infused Documented By: Admin: 12/01/23 21:02 Dose: 400 mls/hr Documented By: LIBBY Cefepime HCl (Maxipime) 2,000 mg in 20 mls @ 5 mls/min IV NOW STA; Protocol Stop: 12/01/23 20:59 Last Admin: 12/01/23 21:03 Dose: 5 mls/min Documented By: LIBBY Sodium Chloride (Nss) 1,000 mls @ 999 mls/hr IV .Q1H1M TOMA Stop: 12/01/23 23:45 Last Infusion: 12/01/23 23:18 Dose: Infused Documented By: Admin: 12/01/23 22:08 Dose: 999 mls/hr Documented By: Infusion: 12/01/23 22:08 Dose: Infused Documented By: Admin: 12/01/23 21:47 Dose: 999 mls/hr Documented By: LIBBY Sodium Chloride (Nss) 500 mls @ 999 mls/hr IV .Q31M ONE Stop: 12/01/23 22:06 Last Infusion: 12/01/23 23:19 Dose: Infused Documented By: Admin: 12/01/23 22:43 Dose: 999 mls/hr Documented By: LIBBY Critical Care Time Critical Care Time: Yes Total Critical Care Time: 70 I have personally spent greater than 70 minutes of critical care time in the direct management of this patient. This includes bedside care, interpretation of diagnostic studies, and testing, discussion with consultants, patient, and family members, and other required patient management activities. This 70 minutes is in excess of all separately billable procedures. Medical Decision Making Laboratory Data Attestation: I reviewed the patient's lab results. 12/01/23 19:16 12/01/23 19:16 Lab Results 12/01/23 12/01/23 12/01/23 Range/Units 19:16 20:59 21:02 WBC 3.46 L (4.8-10.8) K/ul RBC 3.41 L (4.70-6.10) M/uL Hgb 10.9 L (14.0-18.0) g/dl POC Hgb 10.5 L (14.0-18.0) g/dl Hct 31.2 L (42.0-52.0) % POC Hct 31 L (42-52) % MCV 91.5 (80.0-100.0) fL MCH 32.0 (25.0-34.0) pg MCHC 34.9 (32.0-36.0) g/dL RDW Std Deviation 53.7 H (36.4-46.3) fL RDW Coeff of Jose Juan 16.1 H (11.5-14.5) % Plt Count 164 (130-400) K/uL MPV 10.2 (9.4-12.4) fL Immature Gran % (Auto) 1.7 % Neut % (Auto) 74.8 % Lymph % (Auto) 16.5 % [place] % (Auto) 6.4 % Eos % (Auto) 0.0 % Baso % (Auto) 0.6 % Neut # (Auto) 2.59 (1.40-6.50) K/uL Lymph # (Auto) 0.57 L (1.20-3.40) K/uL [place] # (Auto) 0.22 (0.11-0.59) K/uL Eos # (Auto) 0.00 (0.00-0.50) K/uL Baso # (Auto) 0.02 (0.00-0.20) K/uL Immature Gran # (Auto) 0.06 (0.01-0.20) K/uL Absolute Nucleated RBC 0.05 (0.00-0.12) K/uL Nucleated RBC % (auto) 1.4 % PT 11.4 (9.0-12.0) Seconds INR 1.1 (0.9-1.1) APTT 26 (21-31) Seconds PTT Ratio 1.0 VBG pH (7.36-7.41) VBG pCO2 (38-50) mmHg VBG pO2 mmHg VBG HCO3 mmol/L VBG O2 Saturation % VBG Base Excess mEq/L POC Sodium 134 L (135-144) mmol/L Sodium 134 L (136-145) mmol/L POC Potassium 4.4 (3.3-5.0) mmol/L Potassium 4.1 (3.5-5.1) mmol/L POC Chloride 102 (101-112) mmol/L Chloride 104 (98-107) mmol/L Carbon Dioxide 22 (21-32) mmol/L POC Total CO2 23 L (24-31) mmol/L Anion Gap 8 (3-11) POC Anion Gap 14.0 L (16-25) mmol/L POC BUN 21 H (7-18) mg/dl BUN 19 (6-23) mg/dl Creatinine 1.08 (0.6-1.4) mg/dl POC Creatinine 1.1 (0.6-1.3) mg/dl Est Cr Clr Drug Dosing 70.6 ml/min Est GFR ( Amer) 80.2 ml/min Est GFR (Non-Af Amer) 69.2 ml/min BUN/Creatinine Ratio 17.6 (10-20) Glucose 230 H (70-99(Fasting)) mg/dl POC Glucose (other) 222 H (70-99) mg/dl Lactate (0.4-2.0) mmol/L Calcium 7.9 L (8.6-10.3) mg/dl POC Ioniz Calcium Jah 1.15 (1.12-1.32) mmol/l Magnesium 0.9 L* (1.7-2.4) mg/dl Total Bilirubin 0.6 (0.2-1.0) mg/dl Direct Bilirubin 0.1 (0-0.2) mg/dl AST 11 L (13-39) U/L ALT 18 (7-52) U/L Alkaline Phosphatase 107 H (34-104) U/L Troponin I High Sens 60.4 H* (0-20) pg/ml Total Protein 4.8 L (6.0-8.3) gm/dl Albumin 2.8 L (3.4-5.0) gm/dl Procalcitonin 0.44 (0-0.5) ng/ml Urine Color Urine Appearance (Clear) Urine pH (4.5-7.5) Ur Specific [place] (1.000-1.030) Urine Protein (Negative) Urine Glucose (UA) (Negative) Urine Ketones (Negative) Urine Blood (Negative) Urine Nitrite (Negative) Urine Bilirubin (Negative) Urine Urobilinogen (Negative) Ur Leukocyte Esterase (Negative) Urine WBC (Auto) (0-5) /hpf Urine RBC (Auto) (0-2) /hpf U Hyaline Cast (Auto) (0-2) /lpf U Epithel Cells (Auto) (0-2) /hpf Urine Bacteria (Auto) (None Seen) Adenovirus (PCR) Not Detected (NotDetected) B. pertussis DNA (PCR) Not Detected (NotDetected) B.parapertussis DNA PCR Not Detected (NotDetected) C. pneumoniae DNA (PCR) Not Detected (NotDetected) Coronavirus OC43 (PCR) Not Detected (NotDetected) Coronavirus HKU1 (PCR) Not Detected (NotDetected) Coronavirus 229E (PCR) Not Detected (NotDetected) SARS-CoV-2 (PCR) Not Detected (NotDetected) Coronavirus NL63 (PCR) Not Detected (NotDetected) Human Metapneumovir PCR Not Detected (NotDetected) Influenza Type A (PCR) Not Detected (NotDetected) Influenza Type B (PCR) Not Detected (NotDetected) M. pneumoniae (PCR) Not Detected (NotDetected) Parainfluenza 1 (PCR) Not Detected (NotDetected) Parainfluenza 2 (PCR) Not Detected (NotDetected) Parainfluenza 3 (PCR) Not Detected (NotDetected) Parainfluenza 4 (PCR) Not Detected (NotDetected) RSV (PCR) Not Detected (NotDetected) Entero/Rhino (PCR) Not Detected (NotDetected) 12/01/23 12/01/23 12/01/23 Range/Units 21:24 22:02 22:32 WBC (4.8-10.8) K/ul RBC (4.70-6.10) M/uL Hgb (14.0-18.0) g/dl POC Hgb (14.0-18.0) g/dl Hct (42.0-52.0) % POC Hct (42-52) % MCV (80.0-100.0) fL MCH (25.0-34.0) pg MCHC (32.0-36.0) g/dL RDW Std Deviation (36.4-46.3) fL RDW Coeff of Jose Juan (11.5-14.5) % Plt Count (130-400) K/uL MPV (9.4-12.4) fL Immature Gran % (Auto) % Neut % (Auto) % Lymph % (Auto) % [place] % (Auto) % Eos % (Auto) % Baso % (Auto) % Neut # (Auto) (1.40-6.50) K/uL Lymph # (Auto) (1.20-3.40) K/uL [place] # (Auto) (0.11-0.59) K/uL Eos # (Auto) (0.00-0.50) K/uL Baso # (Auto) (0.00-0.20) K/uL Immature Gran # (Auto) (0.01-0.20) K/uL Absolute Nucleated RBC (0.00-0.12) K/uL Nucleated RBC % (auto) % PT (9.0-12.0) Seconds INR (0.9-1.1) APTT (21-31) Seconds PTT Ratio VBG pH 7.39 (7.36-7.41) VBG pCO2 34 L (38-50) mmHg VBG pO2 55 mmHg VBG HCO3 21 mmol/L VBG O2 Saturation 90.7 % VBG Base Excess -3.6 mEq/L POC Sodium (135-144) mmol/L Sodium (136-145) mmol/L POC Potassium (3.3-5.0) mmol/L Potassium (3.5-5.1) mmol/L POC Chloride (101-112) mmol/L Chloride (98-107) mmol/L Carbon Dioxide (21-32) mmol/L POC Total CO2 (24-31) mmol/L Anion Gap (3-11) POC Anion Gap (16-25) mmol/L POC BUN (7-18) mg/dl BUN (6-23) mg/dl Creatinine (0.6-1.4) mg/dl POC Creatinine (0.6-1.3) mg/dl Est Cr Clr Drug Dosing ml/min Est GFR ( Amer) ml/min Est GFR (Non-Af Amer) ml/min BUN/Creatinine Ratio (10-20) Glucose (70-99(Fasting)) mg/dl POC Glucose (other) (70-99) mg/dl Lactate 1.4 (0.4-2.0) mmol/L Calcium (8.6-10.3) mg/dl POC Ioniz Calcium Jah (1.12-1.32) mmol/l Magnesium (1.7-2.4) mg/dl Total Bilirubin (0.2-1.0) mg/dl Direct Bilirubin (0-0.2) mg/dl AST (13-39) U/L ALT (7-52) U/L Alkaline Phosphatase (34-104) U/L Troponin I High Sens (0-20) pg/ml Total Protein (6.0-8.3) gm/dl Albumin (3.4-5.0) gm/dl Procalcitonin (0-0.5) ng/ml Urine Color Yellow Urine Appearance Clear (Clear) Urine pH 5.0 (4.5-7.5) Ur Specific [place] 1.021 (1.000-1.030) Urine Protein 1+ H (Negative) Urine Glucose (UA) 2+ H (Negative) Urine Ketones Trace H (Negative) Urine Blood Negative (Negative) Urine Nitrite Negative (Negative) Urine Bilirubin Negative (Negative) Urine Urobilinogen Negative (Negative) Ur Leukocyte Esterase Negative (Negative) Urine WBC (Auto) 0-5 (0-5) /hpf Urine RBC (Auto) 0-2 (0-2) /hpf U Hyaline Cast (Auto) 3-5 H (0-2) /lpf U Epithel Cells (Auto) 0-2 (0-2) /hpf Urine Bacteria (Auto) None Seen (None Seen) Adenovirus (PCR) (NotDetected) B. pertussis DNA (PCR) (NotDetected) B.parapertussis DNA PCR (NotDetected) C. pneumoniae DNA (PCR) (NotDetected) Coronavirus OC43 (PCR) (NotDetected) Coronavirus HKU1 (PCR) (NotDetected) Coronavirus 229E (PCR) (NotDetected) SARS-CoV-2 (PCR) (NotDetected) Coronavirus NL63 (PCR) (NotDetected) Human Metapneumovir PCR (NotDetected) Influenza Type A (PCR) (NotDetected) Influenza Type B (PCR) (NotDetected) M. pneumoniae (PCR) (NotDetected) Parainfluenza 1 (PCR) (NotDetected) Parainfluenza 2 (PCR) (NotDetected) Parainfluenza 3 (PCR) (NotDetected) Parainfluenza 4 (PCR) (NotDetected) RSV (PCR) (NotDetected) Entero/Rhino (PCR) (NotDetected) Imaging Data Radiologist's Impression: Chest X-Ray 12/01/23 20:48 SINGLE VIEW CHEST CLINICAL HISTORY: Sepsis FINDINGS: An AP, portable, upright chest radiograph is compared to study dated 08/31/2023 and correlated with chest CT dated 08/21/2023. The heart is top normal for projection noting atherosclerotic calcification of the thoracic aorta. There is pulmonary vascular congestion. Airspace opacities are noted at the left lung base. No large pleural effusion or pneumothorax is seen. The skeletal structures are osteopenic. There are chronic/healed bilateral rib fractures. IMPRESSION: 1. Pulmonary vascular congestion. 2. Airspace opacities at the left lung base could represent atelectasis versus pneumonia/aspiration pneumonitis. Clinical correlation will be required and radiographic follow-up to resolution is recommended ACT 112: Negative or not required by law. Electronically signed by: Poncho Hightower M.D. 12/01/2023 10:[address] 12/01/23 20:48 CT SCAN OF THE BRAIN WITHOUT IV CONTRAST CLINICAL HISTORY: Change in mental status. COMPARISON STUDY: CT of the brain dated 08/21/2023. TECHNIQUE: Unenhanced axial CT scan of the brain is performed from the vertex to the skull base. A dose lowering technique was utilized adhering to the principles of ALARA. The patient was scanned twice due to motion artifact. CT DOSE: 1258.01 mGy.cm FINDINGS: Brain parenchyma: There is age-related involutional change noting minimal microangiopathic disease. There is no hemorrhage, mass effect, or evidence of acute territorial ischemia by CT criteria. [place]-white matter differentiation is preserved. No extra-axial fluid collection is seen. Ventricles, sulci, cisterns: Prominent secondary to involutional change. Intracranial vasculature: There is atherosclerotic calcification of the cavernous carotid and vertebral arteries. Calvarium: Unremarkable. Sinuses and mastoids: The visualized paranasal sinuses are clear. The mastoid air cells are well pneumatized. Orbits: The bony orbits are grossly intact. IMPRESSION: There is no hemorrhage, mass effect, or evidence of acute territorial ischemia by CT criteria. ACT 112: Negative or not required by law. Electronically signed by: Poncho Hightower M.D. 12/01/2023 10:04 PM ECG Data Attestation: I personally reviewed and interpreted this ECG as follows: Rate (beats per minute): 156 Rhythm: + sinus tachycardia ECG Intervals/blocks: + Normal AL and + Normal QT-c ECG ST segments: + Normal ST segments Additional Comments: QRS 68 MDM Narrative 2048: The patient was evaluated in room C10. A complete history and physical exam was performed Cardiac monitoring: An order was placed for continuous cardiac monitoring. The monitor shows a rate of 150 with sinus tachycardia rhythm interpreted by me Patient hypoxic on room air supplemental oxygen saturation applied which improved the patient's oxygen saturation. Sepsis protocols initiated. Patient will be treated with 30 cc/kg of IV fluids. Broad-spectrum antibiotics will be initiated. 2305: Vital signs stable supplemental oxygen. Labs show white blood cell count of 3.46 hemoglobin 10.9 platelet count 164 coagulation studies within normal limits venous pH 7.39 venous pCO2 of 34. Magnesium 0.9. High-sensitivity troponin 60.4. CT of the head within normal limits. Imaging shows pulmonary vascular congestion but does show airspace opacities at the left lung base which could represent atelectasis versus pneumonia. Magnesium repletion started in the emergency department. Cefepime ordered in the emergency department. Patient will be [facility] to the [facility] Dr. Debbi bautista. Impression & Plan Hypoxia, Hypomagnesemia Discharge Plan Visit Data Chief Complaint: Fever Stated Complaint: AMS, Tachycardia, Fever ED Provider: Adelso Wasserman Discharge Problem: Hypoxia, Hypomagnesemia Patient Disposition: Admitted As Inpatient Forms Stand Alone Forms: My [facility] Prescriptions Prescriptions: No Action polyethylene glycol 3350 [Miralax] 17 gram powder in packet 17 g PO DAILY PRN (Reason: Constipation) (DME) Accu-Chek Josephine Plus test strp Strip See Rx Instructions .ROUTE .MEDSUPPLY Qty: 100 3RF Rx Instructions: checking TID multivitamin [Multiple Vitamins] Tablet 1 tab PO DAILY (DME) pen needle, diabetic [BD Ultra-Fine Augustina Pen Needle] 32 gauge x 5/32" needle See Rx Instructions .ROUTE .MEDSUPPLY Qty: 100 3RF Rx Instructions: Use to inject once daily atorvastatin [Lipitor] 40 mg tablet 40 mg PO HS cholecalciferol (vitamin D3) 25 mcg (1,000 unit) tablet 1,000 units PO DAILY pantoprazole 40 mg Tablet,Delayed Release (Dr/Ec) 40 mg PO QAM Qty: 60 0RF metformin 500 mg tablet 500 mg PO QAM metformin 500 mg tablet 1,000 mg PO QPM acyclovir 400 mg tablet 400 mg PO BID dexamethasone 4 mg tablet 4 mg PO DAILY Eliquis 5 mg Tablet 5 mg PO BID Qty: 64 0RF Rx Instructions: take 2 tablets twice a day for 2 days followed by 1 tablet twice a day ongoing. metoprolol succinate 25 mg tablet extended release 24 hr 25 mg PO PM Qty: 30 0RF lisinopril 2.5 mg tablet 2.5 mg PO PM Qty: 30 0RF insulin glargine [Lantus U-100 Insulin] 100 unit/mL Solution 25 unit SC QAM Qty: 10 0RF Rx Instructions: has not yet picked up/filled insulin/syringes as outpt (DME) pen needle, diabetic 29 gauge needle See Rx Instructions .Route Qty: 100 0RF Rx Instructions: As directed insulin aspart U-100 [Novolog FlexPen U-100 Insulin] 100 unit/mL (3 mL) insulin pen 5 unit subcut TID Qty: 15 2RF Rx Instructions: Take 5 units before breakfast, lunch and dinner Referrals Referrals: Maria Ines Damon DO [Primary Care Provider] -
--- NOTE | 2023-12-01 23:29 | History & Physical Report ---
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 Sepsis | Presumed 2/2 Pulmonary Source - Febrile, tachycardic and tachypneic on arrival with presumed pulmonary source - Patient w/ labored breathing, coughing, and short speech on exam - CXR showing pulmonary vacular congestion and congestion in the L lung base c/w pneumonia/aspiration pneumonitis vs atelectasis - Lactate 1.4, Procalcitonin 0.44, Urinalysis negative, MRSA nares pending - Blood cultures pending - Cefepime 2g q8h ongoing for PNA coverage - Patient s/p 2.5L IVF in ED Given profound third spacing, will hold additional fluids at this time Hypoxia - New oxygen requirement on arrival - ABG largely unremarkable, no acidosis/alkalosis - Now saturating well on 4L NC Confusion | AMS - CT Head unremarkable - Likely multifactorial in relation to infection, hypoxia, and hypomagnesemia - Patient passed bedside swallow evaluation; proceed with PO medications at this time Elevated Troponin - No active chest pain or dyspnea - Troponin 60 on arrival, 64 on admission - EKG w/o acute ST or T wave abnormalities - Likely demand in the setting of acute infection - Continue to follow, repeat EKG for chest pain Cellulitis - Superficial cellulitis of L great toe - No appreciable purulence - Antibiotic coverage as above Electrolyte Abnormalities - Hypomagnesemia - 0.9 on presentation, repletion ongoing - Hyponatremia - Chronic - Hypoalbuminemia - repleted with 50 g IV Albumin Chronic Conditions - Light Chain Myeloma/Osteolytic Lesions/Cancer Related Pain - continue home Dexamethasone and Gabapentin - GERD: Continue PPI - DM2: SSI and Accu checks ordered, continue home dose basal insulin - Dyslipidemia: Statin held - Edema: Cautious fluids given significant third spacing. Albumin provided as above. - DVT/PE: Continue Eliquis Diet: DM2, Heart Healthy (bedside swallow study passed) IVF: S/p 2.5L, currently held CODE; DNT/DNI Disp: Med/Tele History of Present Illness Chief Complaint: Fever Primary Care Provider: Maria Ines Damon DO Haroon is a 68 M with PMH of encephalopathy, DVT/PE, DKA, myeloma w/ osteolytic lesions, GERD, HTN, AZAR, and HLD who presents for fever. Justino was brought into the hospital by a friend who went over to his home to check on him and found him unwell/confused in his bed. Patient evaluated independently at bedside, he notes that he was brought to the hospital because of pain in his left great toe which has been there for 3 weeks. He denies chest pain, dyspnea, or cough. Patient notes that he has continued to urinate and move his bowels well. He notes that he eats well at home. Patient is undergoing cancer treatments and also follows with palliative medicine. Patient notes that he does not use oxygen at home. He notes that he has good pain control and does not often require pain management. History limited by patient's dyspnea. Allergies Allergy/AdvReac Type Severity Reaction Status Date / Time amoxicillin [From Augmentin] Allergy Intermediate SWELLING Verified 12/02/23 01:39 AROUND EYES clavulanic acid Allergy Intermediate SWELLING Verified 12/02/23 01:39 AROUND THE EYES Penicillins Allergy Intermediate AUGMENTIN Verified 12/02/23 01:39 - SWELLING AROUND THE EYES diflunisal AdvReac Intermediate VOMITING Verified 12/02/23 01:39 valsartan [From Diovan] AdvReac Intermediate Vomiting Verified 12/02/23 01:39 Home Medications Medication Instructions Recorded Confirmed Type atorvastatin 40 mg tablet (Lipitor) 40 mg PO HS 08/09/19 12/02/23 History cholecalciferol (vitamin D3) 25 1,000 units PO DAILY 01/27/20 12/02/23 History mcg (1,000 unit) tablet multivitamin (Multiple Vitamins 1 tab PO DAILY 01/27/20 12/02/23 History tablet) blood sugar diagnostic (Accu-Chek #100 ea 05/23/22 12/02/23 Rx Josephine Plus test strips) pantoprazole 40 mg tablet,delayed 40 mg PO QAM #60 tabs 08/24/22 12/02/23 Rx release pen needle, diabetic 32 gauge x #100 ea 11/14/22 12/02/23 Rx 5/32" (BD Ultra-Fine Augustina Pen Needle) polyethylene glycol 3350 17 gram 17 g PO DAILY PRN Constipation 11/22/22 12/02/23 History oral powder packet (Miralax) acyclovir 400 mg tablet 400 mg PO BID 08/21/23 12/02/23 History dexamethasone 4 mg tablet 4 mg PO WE 08/21/23 12/02/23 History metformin 500 mg tablet 1,000 mg PO QPM 08/21/23 12/02/23 History metformin 500 mg tablet 500 mg PO QAM 08/21/23 12/02/23 History apixaban 5 mg tablet (Eliquis) 5 mg PO BID #64 tabs 08/28/23 12/02/23 Rx lisinopril 2.5 mg tablet 2.5 mg PO PM #30 tabs 08/28/23 12/02/23 Rx metoprolol succinate 25 mg 25 mg PO PM #30 tabs 08/28/23 12/02/23 Rx tablet,extended release 24 hr pen needle, diabetic 29 gauge #100 ea 09/02/23 12/02/23 Rx diclofenac sodium 75 mg 75 mg PO BID PRN .Arthritis 12/02/23 12/02/23 History tablet,delayed release gabapentin 300 mg capsule 300 mg PO AMPM 12/02/23 12/02/23 History insulin aspart U-100 100 unit/mL 15 unit subcut TIDM 12/02/23 12/02/23 History (3 mL) subcutaneous pen (Novolog FlexPen U-100 Insulin aspart) insulin glargine 100 unit/mL 25 unit SC AMPM 12/02/23 12/02/23 History subcutaneous solution (Lantus U-100 Insulin) Past Med/Surg History Medical History Edema Weakness generalized Cancer related pain Advanced care planning/counseling discussion Palliative care encounter Light chain myeloma Metabolic encephalopathy Elevated troponin level Hypercalcemia Acute renal failure Acute back pain Fatigue GE reflux Hypertension Gout Vitamin D deficiency Obstructive sleep apnea Dyslipidemia Type 2 diabetes mellitus Tendon laceration Laceration of multiple sites of left hand and fingers Chest pain Bronchitis Surgical History History of surgery on arm Family History Father Alzheimer disease Dyslipidemia Mother Diabetes Coronary heart disease Other Family history non-contributory Social History Smoking Status: Unknown if ever smoked Second Hand Exposure: No; Do You Dip or Chew Tobacco: No; Hx Alcohol Use: No Hx Substance Use: No Preferred Language: Swiss Communication Ability: Effective Rapid Transit Operator Required: No Beliefs That Will Affect Care: None marital status: Single marital status details: no children Current Living Situation: Alone Current Living Situation Comment: lives with mother current occupational status: retired Feels Safe at Home: Yes Assistive Devices: Bedside Commode Physical Exam Physical Exam: Gen: NAD, pleasant, speaks in short sentences, coughing sporadically HEENT: Supple, no LAD, no thyromegaly, notable facial edema Resp:Labored, rhonchi in LLL, otherwise clear to auscultation CV:tachycardic, regular rhythm, normal S1/S2, no M/R/G Abd: Soft, distended, no TTP, normoactive bowels, no masses Extr: 2+ dp bilaterally, 3+ upper and lower extremity pitting edema bilaterally Skin: Moderate erythema surrounding nail bed of left great toe Results & Data Results & Data Vital Signs (Past 12 Hours) Vital Signs Temp Pulse Pulse Resp BP BP Pulse Ox 12/01/23 23:00 36.8 C 118 H 23 106/67 91 12/01/23 21:22 144 H 31 H 95/56 L 97 12/01/23 21:22 97 12/01/23 20:49 39.2 C H 154 H 29 H 107/77 95 12/01/23 20:49 39.2 C H 154 H 29 H 107/77 95 12/01/23 20:44 155 H O2 Del Method O2 Flow Rate 12/01/23 23:00 Nasal Cannula 6 12/01/23 21:22 Room Air 12/01/23 21:22 Nasal Cannula 6 12/01/23 20:49 Nasal Cannula 6 12/01/23 20:49 Nasal Cannula 6 12/01/23 20:44 Supervising Physician Co-Signing Physician Notes Attending addendum: I have physically seen this patient, have supervised the medical residents activities, and agree with the H&P unless as otherwise noted. Assessment and Plan: Sepsis/left lower lobe aspiration pneumonia/acute respiratory failure with hypoxia Tachycardic, febrile and increased respiratory rate Chest x-ray suggested left lower lobe infiltrate, possibly aspiration MRSA swab Follow sputum and blood cultures and sensitivities Allergy to penicillins Cefepime 2 g IV every 8 hours Duonebs every 4 hours while awake and every 2 hours when necessary. Tachycardia/elevated troponin- Troponin 60.4 on admission Increased heart rate secondary to sepsis and low magnesium Replace magnesium IV Heart rate improving with 2.5 l normal saline bolus Add albumin 50 g IV for albumin level 2.8, to address third spacing Hypomagnesemia- Magnesium 0.9 To receive a total 4 g of mag sulfate IV Recheck laboratories in a.m. Left great toe cellulitis- Antibiotics as noted above Resident Activity Tracking Resident Involvement: Resident Care Provided Care Provided: Adult Hospital Medicine (Night)
[2023-12-02] MEDS ORDERED: CARBOHYDRATES FOR HYPOGLYCEMIA PO PRN ×2 (02:17)
[2023-12-02] MEDS ORDERED: GLUCOSE 40% GEL 15 GM TUBE PO PRN ×2 (02:17)
[2023-12-02] MEDS ORDERED: ONDANSETRON INJ 2 MG/ML 2 ML VIAL IV PRN (02:17)
[2023-12-02] MEDS ORDERED: GLUCOSE 10 TAB/TUBE PO PRN ×2 (02:17)
[2023-12-02] MEDS ORDERED: DEXTROSE 50% 50 ML SYRINGE IV PRN ×2 (02:17)
[2023-12-02] MEDS ORDERED: GLUCAGON FOR INJ 1 MG VIAL SQ PRN ×2 (02:17)
[2023-12-02] MEDS ORDERED: POLYETHYLENE (MIRALAX) 17 GM PACK PO PRN (02:17)
[2023-12-02] MEDS ORDERED: Nursing to Pharmacy Communication STA (02:31)
[2023-12-02] MEDS ORDERED: Nursing to Pharmacy Communication SCH (02:45)
[2023-12-02] MEDS: MAGNESIUM SULFATE / D5W 1 GM/100 ML BAG IV SCH (02:46)
[2023-12-02] MEDS: ALBUMIN 25% 25 GM/100 ML VIAL IV SCH (02:46)
[2023-12-02] MEDS: INSULIN ASPART PER UNIT CHARGE SC SCH (05:47)
[2023-12-02] MEDS: CEFEPIME 2,000 MG in SYRINGE 0 ML IV SCH (06:05)
[2023-12-02 06:30] LABS: Hematocrit (blood only) 27.9 % (42.0-52.0); Hemoglobin 9.7 g/dl (14.0-18.0); Mean Corpuscular Hemoglobin 32.3 pg (25.0-34.0); Mean Corpuscular Hgb Conc 34.8 g/dL (32.0-36.0); Mean Platelet Volume 10.6 fL (9.4-12.4); Platelet Count 133 K/uL (130-400); RDW Coefficient of Variation 16.6 % (11.5-14.5); RDW Standard Deviation 56.2 fL (36.4-46.3); White Blood Count 3.16 K/ul (4.8-10.8)
[2023-12-02 07:00] LABS: Alanine Aminotransferase 15 U/L (7-52); Albumin Globulin Ratio 1.9 (0.9-2); Albumin Level 3.3 gm/dl (3.4-5.0); Alkaline Phosphatase 85 U/L (34-104); Anion Gap 7 (3-11); BUN Creatinine Ratio 15.2 (10-20); Bilirubin,Total 0.5 mg/dl (0.2-1.0); Blood Urea Nitrogen 15 mg/dl (6-23); Calcium 7.7 mg/dl (8.6-10.3); Carbon Dioxide 20 mmol/L (21-32); Chloride 109 mmol/L (98-107); Creatinine Clr Calc Pharmacy 76.6 ml/min; Est GFR (African American) 89.1 ml/min; Est GFR (Non-African American) 76.8 ml/min; Globulin 1.7 gm/dl (2.5-4.0); Glucose 258 mg/dl (70-99(Fasting)); Magnesium 2.2 mg/dl (1.7-2.4); Sodium 136 mmol/L (136-145)
[2023-12-02 07:22] LABS: Estimated Average Glucose 303 mg/dl; Hemoglobin A1C 12.2 % (4.5-5.6)
[2023-12-02] MEDS: PANTOprazole 40 MG TAB PO SCH (07:39)
[2023-12-02] MEDS: ACETAMINOPHEN 325 MG TAB PO PRN (07:39)
[2023-12-02] MEDS: ACYCLOVIR 400 MG TAB PO SCH (07:40)
[2023-12-02] MEDS: dexAMETHasone 4 MG TAB PO SCH (07:40)
[2023-12-02] MEDS: GABAPENTIN 300 MG CAP PO SCH ×2 (07:40→20:23)
[2023-12-02] MEDS: APIXABAN 5 MG TABLET PO SCH (07:40)
--- NOTE | 2023-12-02 07:46 | Hospitalist Progress Note ---
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 Sepsis | Presumed 2/2 Pulmonary Source - Febrile, tachycardic and tachypneic on arrival with presumed pulmonary source - Patient w/ labored breathing, coughing, and short speech on exam - CXR showing pulmonary vacular congestion and congestion in the L lung base c/w pneumonia/aspiration pneumonitis vs atelectasis - Lactate 1.4, Procalcitonin 0.44, Urinalysis negative, biofire negative, MRSA nares negative - Blood cultures pending - Cefepime 2g q8h ongoing for PNA coverage - Patient s/p 2.5L IVF in ED Given profound third spacing, will hold additional fluids at this time Hypoxia - New oxygen requirement on arrival - ABG largely unremarkable, no acidosis/alkalosis - Now saturating well on 2L NC Confusion | AMS - CT Head unremarkable - Likely multifactorial in relation to infection, hypoxia, and hypomagnesemia - Patient passed bedside swallow evaluation; proceed with PO medications and advance diet at this time Elevated Troponin - No active chest pain or dyspnea - Troponin 60 on arrival, 64 on admission - EKG w/o acute ST or T wave abnormalities - Likely demand in the setting of acute infection - Continue to follow, repeat EKG for chest pain Cellulitis - Superficial cellulitis of L great toe - No appreciable purulence - Antibiotic coverage as above Electrolyte Abnormalities - Hypomagnesemia - 0.9 on presentation, repletion ongoing - Hyponatremia - Chronic - Hypoalbuminemia - repleted with 50 g IV Albumin Chronic Conditions - Light Chain Myeloma/Osteolytic Lesions/Cancer Related Pain - continue home Dexamethasone and Gabapentin - GERD: Continue PPI - DM2: SSI and Accu checks ordered, continue home dose basal insulin - Dyslipidemia: Statin held - Edema: Cautious fluids given significant third spacing. Albumin provided as above. - DVT/PE: Continue Eliquis Diet: DM2, Heart Healthy (bedside swallow study passed) DVT: Eliquis 5mg BID home med. IVF: S/p 2.5L, currently held CODE; DNR/DNI Disp: Med/Tele Admission and Anticipated Discharge Date Admission Date: December 01, 2023 Supervising Physician Co-Signing Physician Notes Attending Physician Supervision Note: I independently interviewed and examined the patient and verified the wylie history and physical, reviewed labs and image studies and agree with findings and care plan noted above. Comfortable and alert. Denied any concerns no fever. Friend at bedside Lungs CTAB. Sepsis d/t left lung pneumonia with hypoxia -received fluid resuscitation in the ED and IV Abx. -Continue Abx. -Cultures pending -Continue O2 as needed. Elevated troponin-likely demand ischemia. Left toe cellulitiscontinue IV abx apixaban Subjective Patient seen at bedside saying he doesn't feel too well, the thing that is bothering him the most is the cough and congestion that he has. He does not feel short of breath or have any chest pain. He says he does not remember coming in but knows that he had his friend bring him in. Review of Systems Review of Systems: As per HPI. Physical Exam Constitutional: WD/WN, vitals as above Eyes: PERRL, conjunctivae normal, anicteric sclerae Respiratory: Mild rhonchi at the LLL, otherwise clear to auscultation. Cardiovascular: Rate/Rhythm: + tachycardic Heart Sounds: normal S1 and normal S2 Extremities: + edema (3+ pitting edema in the bilateral lower ex tremities up to the proximal rehman) Gastrointestinal (Abdomen): normal bowel sounds, soft, nontender, no hepatosplenomegaly Skin: Erythema surrounding the nail bed of L great toe. Psychiatric: A+Ox3, euthymic affect Results & Data Results & Data Vital Signs (Past 12 Hours) Vital Signs Temp Pulse Pulse Resp BP BP Pulse Ox 12/02/23 06:00 102 H 22 141/97 H 96 12/02/23 05:00 102 H 20 137/91 96 12/02/23 04:30 98 12/02/23 04:28 96 12/02/23 04:00 97 H 23 118/79 98 12/02/23 03:44 99 H 23 121/73 98 12/02/23 03:30 99 H 20 121/65 99 12/02/23 03:00 97 H 20 119/72 97 12/02/23 02:59 12/02/23 02:59 36.7 C 98 H 22 107/81 97 12/02/23 02:54 12/02/23 02:30 36.7 C 101 H 22 107/81 97 12/02/23 02:00 98 H 21 97/76 L 96 12/02/23 01:30 103 H 21 114/77 97 12/02/23 00:30 106 H 19 126/85 98 12/01/23 23:00 36.8 C 118 H 23 106/67 91 12/01/23 21:22 144 H 31 H 95/56 L 97 12/01/23 21:22 97 12/01/23 20:49 39.2 C H 154 H 29 H 107/77 95 12/01/23 20:49 39.2 C H 154 H 29 H 107/77 95 12/01/23 20:44 155 H Pulse Ox O2 Del Method O2 Del Method O2 Flow Rate O2 Flow Rate 12/02/23 06:00 Nasal Cannula 2 12/02/23 05:00 Nasal Cannula 2 12/02/23 04:30 Nasal Cannula 2 12/02/23 04:28 Nasal Cannula 2 12/02/23 04:00 Nasal Cannula 2 12/02/23 03:44 Nasal Cannula 2 12/02/23 03:30 Nasal Cannula 2 12/02/23 03:00 Nasal Cannula 2 12/02/23 02:59 Nasal Cannula 2 12/02/23 02:59 Nasal Cannula 2 12/02/23 02:54 97 Nasal Cannula 2 12/02/23 02:30 Nasal Cannula 2 12/02/23 02:00 Nasal Cannula 2 12/02/23 01:30 Nasal Cannula 2 12/02/23 00:30 Nasal Cannula 4 12/01/23 23:00 Nasal Cannula 6 12/01/23 21:22 Nasal Cannula 6 12/01/23 21:22 Nasal Cannula 6 12/01/23 20:49 Nasal Cannula 6 12/01/23 20:49 Nasal Cannula 6 12/01/23 20:44 Resident Activity Tracking Resident Involvement: Resident Care Provided Care Provided: Adult Hospital Medicine"
[2023-12-02 07:48] LABS: Potassium 3.8 mmol/L (3.5-5.1)
[2023-12-02] MEDS: LANTUS PER UNIT CHARGE SC SCH (09:21)
[2023-12-02] MEDS: LANTUS PER UNIT CHARGE SQ ONE (09:38)
--- NOTE | 2023-12-02 21:32 | Billing Data ---
Date of Service December 02, 2023 Coding Level of Care Code 21989 INT INP/OBS CARE
[2023-12-03 04:00] LABS: Basophils # (auto) 0.02 K/uL (0.00-0.20); Basophils % (auto) 0.6 %; Hematocrit (blood only) 30.5 % (42.0-52.0); Hemoglobin 10.3 g/dl (14.0-18.0); Immature Granulocytes # (auto) 0.08 K/uL (0.01-0.20); Immature Granulocytes % (auto) 2.2 %; Lymphocytes # (auto) 0.53 K/uL (1.20-3.40); Lymphocytes % (auto) 14.7 %; Mean Corpuscular Hemoglobin 31.8 pg (25.0-34.0); Mean Corpuscular Hgb Conc 33.8 g/dL (32.0-36.0); Mean Corpuscular Volume 94.1 fL (80.0-100.0); Mean Platelet Volume 9.8 fL (9.4-12.4); Monocytes # (auto) 0.17 K/uL (0.11-0.59); Monocytes % (auto) 4.7 %; Neutrophils % (auto) 77.8 %; Nucleated RBC # (auto) 0.02 K/uL (0.00-0.12); Nucleated RBC % (auto) 0.6 %; Platelet Count 176 K/uL (130-400); RDW Coefficient of Variation 16.1 % (11.5-14.5); RDW Standard Deviation 55.8 fL (36.4-46.3); Red Blood Count 3.24 M/uL (4.70-6.10)
[2023-12-03 04:22] LABS: BUN Creatinine Ratio 18.8 (10-20); Calcium 8.3 mg/dl (8.6-10.3); Creatinine Clr Calc Pharmacy 75.1 ml/min; Est GFR (African American) 86.9 ml/min; Magnesium 1.6 mg/dl (1.7-2.4); Potassium 4.2 mmol/L (3.5-5.1)
[2023-12-03] MEDS: lisinopril 2.5 MG TAB PO ONE (06:25)
--- NOTE | 2023-12-03 06:38 | Hospitalist Progress Note ---
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 Sepsis | Presumed 2/2 Pulmonary Source - Febrile, tachycardic and tachypneic on arrival with presumed pulmonary source - Patient w/ coughing, and short speech on exam - CXR showing pulmonary vacular congestion and congestion in the L lung base c/w pneumonia/aspiration pneumonitis vs atelectasis - Lactate 1.4, Procalcitonin 0.44, Urinalysis negative, biofire negative, MRSA nares negative - Blood cultures negative at 24 hours. - Cefepime 2g q8h ongoing for PNA coverage - Patient s/p 2.5L IVF in ED Given profound third spacing, will hold additional fluids at this time Hypoxia - New oxygen requirement on arrival - ABG largely unremarkable, no acidosis/alkalosis - Now saturating well on 2L NC - Oxygen requirement still at 2L with pitting edema on exam still. Will trial 40mg IV x1 Lasix at this time. Confusion | AMS - CT Head unremarkable - Patient alert and oriented since first day of admission. - Likely multifactorial in relation to infection, hypoxia, and hypomagnesemia - Patient passed bedside swallow evaluation; proceed with PO medications and advance diet at this time Elevated Troponin - No active chest pain or dyspnea - Troponin 60 on arrival, 64 on admission. - Downtrended to 25. - EKG w/o acute ST or T wave abnormalities - Likely demand in the setting of acute infection Cellulitis - Superficial cellulitis of L great toe - No appreciable purulence - Antibiotic coverage as above Electrolyte Abnormalities - Hypomagnesemia - 0.9 on presentation, repletion ongoing - Hyponatremia - Chronic - Hypoalbuminemia - repleted with 50 g IV Albumin Chronic Conditions - Light Chain Myeloma/Osteolytic Lesions/Cancer Related Pain - continue home Dexamethasone and Gabapentin - GERD: Continue PPI - DM2: SSI and Accu checks ordered, continue home dose basal insulin - Dyslipidemia: Statin held - Edema: Cautious fluids given significant third spacing. Albumin provided as above. - DVT/PE: Continue Eliquis Diet: DM2, Heart Healthy (bedside swallow study passed) DVT: Eliquis 5mg BID home med. IVF: S/p 2.5L, currently held CODE; DNR/DNI Disp: Med/Tele Admission and Anticipated Discharge Date Admission Date: December 01, 2023 Supervising Physician Co-Signing Physician Notes Attending Physician Supervision Note: I independently interviewed and examined the patient and verified the wylie h istory and physical, reviewed labs and image studies and agree with findings and care plan noted above. No concerns. No distress Lungs CTAB. Sepsis d/t left lung pneumonia with hypoxia -received fluid resuscitation in the ED and IV Abx. -Continue Abx. -Blood culture negative Hypoxia in setting of pneumonia - -Continue O2 as needed -hypoxia likely also driven by underlying possible sleep apnea. -Consider outpatient sleep study Elevated troponin-likely demand ischemia. Left toe cellulitiscontinue IV abx apixaban Subjective Patient seen at the bedside without much change from yesterday, slightly better. Denies shortness of breath, chest pain, nausea, urinary or bowel issues. No overnight events. Review of Systems Review of Systems: As per HPI. Physical Exam Constitutional: WD/WN, vitals as above Eyes: PERRL, conjunctivae normal, anicteric sclerae Respiratory: normal respiratory effort, lungs clear to auscultation (mild SoB with conversation.) Cardiovascular: Rate/Rhythm: + tachycardic Heart Sounds: normal S1 and normal S2 Extremities: + edema (2-3+ pitting edema bilaterally to the shins. ) Gastrointestinal (Abdomen): normal bowel sounds, soft, nontender, no hepatosplenomegaly Skin: L great toe with mild erythmea unchanged from previous exam. Psychiatric: A+Ox3, euthymic affect Results & Data Results & Data Vital Signs (Past 12 Hours) Vital Signs Temp Pulse Pulse Resp BP Pulse Ox Pulse Ox 12/03/23 03:54 168/98 H 12/03/23 03:38 36.5 C 101 H 20 166/100 H 96 12/02/23 23:30 36.6 C 108 H 20 166/98 H 95 12/02/23 22:01 112 H 12/02/23 21:00 96 12/02/23 20:20 12/02/23 20:05 36.5 C 117 H 18 155/92 H 96 O2 Del Method O2 Del Method O2 Flow Rate 12/03/23 03:54 12/03/23 03:38 Nasal Cannula 2 12/02/23 23:30 Nasal Cannula 2 12/02/23 22:01 12/02/23 21:00 Room Air 12/02/23 20:20 Room Air 12/02/23 20:05 Nasal Cannula 2 Resident Activity Tracking Resident Involvement: Resident Care Provided Care Provided: Adult Hospital Medicine"
[2023-12-03] MEDS: ATORVASTATIN 40 MG TAB PO ONE (07:17)
[2023-12-03] MEDS: METOPROLOL SUCC 25MG EXT REL TAB PO ONE (07:18)
[2023-12-03] MEDS: LANTUS PER UNIT CHARGE SC SCH ×2 (10:40→19:56)
[2023-12-03] MEDS: MAGNESIUM SULFATE / D5W 1 GM/100 ML BAG IV SCH (10:48)
[2023-12-03] MEDS: FUROSEMIDE 40 MG/4 ML VIAL IV ONE (15:05)
[2023-12-03] MEDS: INSULIN ASPART PER UNIT CHARGE SC STA (17:40)
[2023-12-03] MEDS: INSULIN ASPART PER UNIT CHARGE SC SCH (18:36)
[2023-12-03] MEDS ORDERED: PHARMACY GLYCEMIC MGMT CONSULT PRN (18:46)
[2023-12-03] MEDS: INSULIN HUMAN REGULAR PER UNIT 10 UNITS in SYRINGE 9.9 ML IV ONE (19:39)
[2023-12-03] MEDS ORDERED: Nursing to Pharmacy Communication SCH (19:45)
[2023-12-03] MEDS: ATORVASTATIN 40 MG TAB PO SCH (19:49)
[2023-12-03] MEDS: lisinopril 2.5 MG TAB PO SCH (19:50)
[2023-12-03] MEDS: METOPROLOL SUCC 25MG EXT REL TAB PO SCH (19:50)
--- NOTE | 2023-12-03 20:06 | Pharmacy Report ---
Pharmacy Glycemic Short Note 2 - Date of Service December 03, 2023 - Glycemic Short BSG Results (Last 24 hours): 12/02/23 12/02/23 12/03/23 23:56 23:58 03:36 Glucose 282 H POC Glucose 421 H* 382 H* 12/03/23 12/03/23 12/03/23 07:22 16:58 16:59 Glucose POC Glucose 258 H > 600 H* 576 H* 12/03/23 12/03/23 12/03/23 18:28 18:30 18:47 Glucose 713 H* POC Glucose > 600 H* > 600 H* Laboratory Tests 12/02/23 02:38 Hemoglobin A1c 12.2 H Laboratory Tests 12/03/23 18:47 Glucose 713 H* OUTPATIENT ANTIDIABETIC REGIMEN: * Lantus 25 units BID, uncertain if he was taking this? * Novolog 15 units AC * A1c 12.2% from 12/02/23 ASSESSMENT: * Pharmacy consulted for BSGs > 600mg/dL this evening. BSG and coverage missed 12/03/23 1200. * Pt ordered dexamethasone 4mg daily + cefepime 2gIV q8h. * My plan is based on a stress=2. PLAN FOR INPATIENT GLYCEMIC CONTROL: * Discussed serum BSG 713mg/dL with Dr. Moreno. Would IV insulin be appropriate thru the night? Opted for aggressive basal:bolus. Ordered IV Regular Insulin 10 units NOW x 1. Then close monitoring. * Basal insulin * Increased Lantus to 15 units SQ BID. Giving Lantus 25 units sq x 1 this evening. * Bolus insulin * NovoLog per scale ACHS or Q6hrs while NPO + 0200 * Goal Range: Low 110 mg/dL - High 160 mg/dL * "Tightened" Correction Factor: 25 mg/dL/unit * "Tightened" Nutritional / Prandial insulin per carb ratio of 1 unit per 8 grams CHO consumed We will monitor closely.
--- NOTE | 2023-12-03 22:10 | Electrocardiogram Report ---
Test Reason : Blood Pressure : / mmHG Vent. Rate : 156 BPM Atrial Rate : 156 BPM P-R Int : 124 ms QRS Dur : 068 ms QT Int : 260 ms P-R-T Axes : 041 -38 067 degrees QTc Int : 419 ms Sinus tachycardia Left axis deviation Abnormal ECG When compared with ECG of 31-AUG-2023 11:59, Vent. rate has increased BY 53 BPM Confirmed by Mariano Quintero ([id number]) on 12/03/2023 10:10:24 PM Referred By: REFERRED SELF Confirmed By:Mariano Quintero
--- OUTSIDE RECORDS SUMMARY | 2023-12-03 22:12 | External Medical Summary | Summary of Care ---
Author Name Unknown Organization [facility] Address [address] [place] [address] Phone [phone] Care Team Providers Care Pool Cleaner Name Role Phone Marisol Maria Ines Colindres DO Primary Care Provider Reason for Visit * Reason Comments NEW PATIENT * Evaluate & Treat - Unlimited Visits (Within 10 days (routine)) - Pending Review Specialty Diagnoses / Procedures Referred By Contmilagros t Referred To Contact Hospice and Palliative Medicine / Palliative Medicine Diagnoses Pain, cancer Maria Ines Damon DO [address] [facility] [address] [address] Referral ID Status Reason Start Date Expiration Date Visits Requested Visits Authorized [id number] Pending Review Specialty Services Required 11/10/[phone] Encounter Details Date Type Department Care Team (Late st Contact Info) Description 11/14/2023 1:00 PM EDT Office Visit Palliative Medicine, [facility] [address] [facility] 5th [place] [address] Samra Auguste PA-C [address] [place] [address] Multiple myeloma not having achieved remission (HCC)*; Cancer related pain; Loose stools; Goals of care, counseling/discussio n; Palliative care encounter Allergies Active Allergy Reactions Criticality Noted Date Comments Amoxicillin 11/14/2023 Clavulanic Acid 11/14/2023 Diflunisal 08/11/2016 Penicillins 11/14/2023 Valsartan 11/14/2023 documented as of this encounter (statuses as of 11/14/2023) Medications Medication Sig Dispensed Refills Start Date End Date Status MetFORMIN (GLUCOPHAGE) 1000 MG Tablet Take 1,000 mg by mouth 2 times a day with morning and evening meals. 0 Active Lisinopril 30 MG Tablet Take 30 mg by mouth daily. 0 Active hydrochlorothiazid e (HYDRODIURIL) 25 MG Tablet Take 25 mg by mouth daily. 0 Active atorvaSTATin (LIPITOR) 10 MG Tablet Take 10 mg by mouth daily. 0 Active Aspirin 81 MG Tablet Take 81 mg by mouth daily. 0 Active Vitamin D, Cholecalciferol, 1000 UNITS CAPS Take by mouth. 0 Activ e Multiple Vitamin (MULTI VITAMIN DAILY) TABS Take by mouth. 0 Active Apixaban 5 MG Oral Tablet (Eliquis) Take 1 Tablet by mouth in the morning and 1 Tablet before bedtime. 0 Active Insulin Glargine 100 UNIT/ML Subcutaneous Solution Pen-injector (Lantus) Inject under the skin. 0 Active Insulin Aspart 100 UNIT/ML Subcutaneous Solution Cartridge Inject under the skin. 0 Active pantoprazole 40 mg in 100 mL NSS Administer 100 mL intravenously in the morning. 0 Active dexAMETHasone 2 MG Oral Tablet (Decadron) Take 1 Tablet by mouth 2 times a day with morning and evening meals. 0 Active Acyclovir 400 MG Oral Tablet (Zovirax) Take 1 Tablet by mouth 5 times a day. 0 Active Gabapentin 300 MG Oral Capsule (Neurontin)Indicat ions:Cancer related pain Take 1 Capsule by mouth in the morning and 1 Capsule before bedtime. 60 Capsule 0 11/14/2023 Active documented as of this encounter (statuses as of 11/14/2023) Active Problems Problem Noted Date Diagnosed Date Insulin resistance HTN (hypertension) Dyslipidemia documented as of this encounter (statuses as of 11/14/2023) Social History Tobacco Use Types Packs/Day Years Used Date Smoking Tobacco: Never Smokeless Tobacco: Never Tobacco Cessation:Counseling Given: No Alcohol Use Standard Drinks/Week Comments Yes 0 (1 standard drink = 0.6 oz pur e alcohol) Sex and Gender Information Value Date Recorded Sex Assigned at Not on file Gender Identity Not on file Sexual Orientation Not on file Job Start Date Occupation Industry Not on file Not on file Not on file documented as of this encounter Last Filed Vital Signs Vital Sign Reading Time Taken Comments Blood Pressure 132/76 11/14/2023 1:05 PM EDT Pulse - - Temperature 36.1 C (96.9 F) 11/14/2023 1:05 PM ED T Respiratory Rate 16 11/14/2023 1:05 PM EDT Oxygen Saturation - - Inhaled Oxygen Concentration - - Weight 88.4 kg (194 lb 12.8 oz) 11/14/2023 1:05 PM EDT Height - - Body Mass Index 31.44 08/11/2016 10:56 AM EST documented in this encounter Patient Instructions * Patient Instructions* Samra Auguste PA-C - 11/14/2023 12:57 PM EDT Our Palliative Medicine Clinic is available Monday through Monday during business hours, so we are unavailable on weekends and holidays. Please ensure that you request refills early in the week as itmay take 1-2 days for them to be addressed and filled, for authorizations to be approved, or for the pharmacy to order them if needed. You can contact our office at [phone], which is our clinic in [place], or you can message us on [facility]. If you have an emergency outside of these hours, we recommend calling your primary care clinic, Oncology office, or going to the ER if you have a medical emergency. Try addition of powdered Metamucil once or twice daily to bulk stools. Increase Gabapentin to 300 mg at bedtime, and then in 3-4 days, add morning dose if tolerating well. Bring Living Will or Advanced Directives next visit to go over documented in this encounter Progress Notes * Winifred Gardner LPN - 11/14/2023 1:01 PM EDT NEW Palliative Visit Brought friend Julio with him today Pain: 2/10 Pain is mostly in his left hip Follows at the [facility] cancer institute in [place] Takes ibuprofen and diclofenac Currently getting chemo once monthly Eating and drinking well Sleeping OK as long as he isn't on his left side Last BM: today. No issues Other issues: documented in this encounter Plan of Treatment Upcoming Encounters Date Type Department Care Team (Late st Contact Info) Description 11/21/2023 10:15 AM EDT Scheduled Telephone Palliative Medicine, [address] 5th [facility] [place] [address] Fl, Nurse Palliative Medicine [facility] [address] [place] [address] [place] [id number] 12/12/2023 11:00 AM EDT Telemedicine Palliative Medicine, [address] 5[address] [place], [place] [id number] Stephania Villaseñor MD [address] [place] [address] [phone] Health Maintenance Due Date Last Done Comments GFR 1953 Lipid Panel 1953 Depression Screening 1965 Albumin/Creatinine Ratio 1971 Hepatitis C Screening 1971 DTaP,Tdap,and Td Vaccines (1 - Tdap) 1972 Cologuard 1998 Colonoscopy 1998 Colorectal Cancer Screening 1998 Fecal Occult Blood Test 1998 Sigmoidoscopy 1998 COVID-19 Vaccine (4 - 2022-2 4 season) 2023 02/25/2022, 10/23/2020, 10/02/2020 Influenza Vaccine (FLU shot) (Season Ended) 2024 06/11/2019, 03/27/2012 Pneumococcal Vaccine: 65+ Years (3 of 3 - PPSV23 or PCV20) 02/11/2025 02/12/2020, 06/30/2015 Zoster Vaccines Completed 06/19/2020, 02/14/2020, 06/17/2014 GARDASIL-HPV IMMUNIZATION SERIES Aged Out No longer eligible b ased on patient's age to complete this topic Hepatitis B Aged Out No longer eligi ble based on patient's age to complete this topic MENINGOCOCCAL (MENACTRA/MENVEO) Aged Out No longer eligible b ased on patient's age to complete this topic documented as of this encounter Medical Devices Not on filedocumented as of this encounter Visit Diagnoses Diagnosis Multiple myeloma not having achieved remission (HCC)- Primary Multiple myeloma, without mention of having achieved remission Cancer related pain Neoplasm related pain (acute) (chronic) Loose stools Abnormal feces Goals of care, counseling/discussion Other specified counseling Palliative care encounter Encounter for palliative care documented in this encounter Care Teams Pool Cleaner Relationship Specialty Start Date End Date Maria Ines Damon DO [address] [place] [address] [address] PCP - General Family Medicine 08/11/16 documented as of this encounter
--- OUTSIDE RECORDS SUMMARY | 2023-12-03 22:12 | External Medical Summary | Continuity of Care Document ---
Author Name Unknown Organization [address] Address [address] [place] [address] [phone] Care Team Providers Care Mineral Surveying Technician Name Role Phone Maria Ines Damon Primary Care Physician [phone] Encounter [facility] [id number] Date(s): 11/15/23 - 11/15/23 [facility] 207 [facility] [address] [phone] Discharge Disposition: Home or Self Care Attending Physician: aRy Phillips DO, Mariana Annette Allergies, Adverse Reactions, Alerts Substance Reaction Severity Status Dolobid vomitting nausea violent chills Active Diovan lip swelling Active Allergy Not found in Search sugar frosted flakes-rash Active Immunizations Given and Recorded Vaccine Date Status Refusal Reason influenza virus vaccine, inactivated 05/31/22 Give n influenza virus vaccine, inactivated 05/03/21 Give n influenza virus vaccine, inactivated 06/11/19 Give n influenza virus vaccine, inactivated 06/07/18 Give n influenza virus vaccine, inactivated 05/17/16 Give n influenza virus vaccine, inactivated 05/27/15 Give n influenza virus vaccine, inactivated 06/17/14 Give n influenza virus vaccine, inactivated 03/27/12 Give n SARS-CoV-2 (COVID-19) mRNA BNT-162b2 vax 02/25/22 Recorded SARS-CoV-2 (COVID-19) mRNA BNT-162b2 vax 1 10/23/20 Recorded SARS-CoV-2 (COVID-19) mRNA BNT-162b2 vax 2 10/02/20 Recorded zoster vaccine, inactivated 3 06/19/20 Recorded zoster vaccine, inactivated 4 02/14/20 Recorded pneumococcal 13-valent vaccine 02/12/20 Given pneumococcal 23-valent vaccine 06/30/15 Given tetanus/diphtheria/pertuss, acel (Tdap) 05/27/15 G iven zoster vaccine live 06/17/14 Given 1Result Comment: 2022-07-21: Historical information-source unspecified 2Result Comment: 2022-07-21: Historical information-source unspecified 3Result Comment: 2022-07-21: Historical information-source unspecified 4Result Comment: 2022-07-21: Historical information-source unspecified Medications Accu-Chek Josephine Plus Test Strips Start: 09/22/23 14:24:00 EST, See Instructions, Disp# 100 strip, Refills: 4, to test blood sugar threee times daily E11.9, Pharmacy: [id number] Start Date: 09/22/23 Status: Ordered acyclovir Start: 08/29/23 13:36:00 EST, 400 mg =, PO, bid Start Date: 08/29/23 Status: Ordered atorvastatin 40 mg oral tablet Start: 06/05/23 15:02:00 EST, See Instructions, Disp# 90 tab, Refills: 3, TAKE 1 TABLET BY MOUTH ATBEDTIME, Pharmacy: [id number] Start Date: 06/05/23 Status: Ordered Baqsimi One Pack 3 mg nasal powder Start: 10/13/23 11:57:00 EDT, See Instructions, Disp# 2 mL, Refills: 0, USE 1 SPRAY IN ONE NOSTRIL NEEDED FOR HYPOGLYCEMIA; MAY REPEAT IN 15 MINUTES, Pharmacy: [facility] Start Date: 10/13/23 Status: Ordered dexAMETHasone 4 mg oral tablet Start: 10/29/23 0:27:00 EDT, 1 tab, PO, Daily, Disp# 30 tab, Refills: 3, Pharmacy: [facility] Start Date: 10/29/23 Status: Ordered diclofenac sodium 75 mg oral delayed release tablet Start: 10/13/23 11:57:00 EDT, 1 tab, PO, bid, Disp# 60 tab, Refills: 2, PRN: NEEDED FOR ARTHRITIS, Pharmacy: [facility] Start Date: 10/13/23 Status: Ordered Eliquis 5 mg oral tablet Start: 10/02/23 15:21:00 EST, 1 tab, PO, bid, Disp# 60 tab, Refills: 2, Pharmacy: [facility] Start Date: 10/02/23 Stop Date: 12/31/23 Status: Ordered Freestyle Riya 3 reader Start: 09/22/23 13:41:00 EST, See Instructions, Disp# 1 each, for continuous glucose monitoring, Pharmacy: [facility] Start Date: 09/22/23 Status: Ordered Freestyle Riya 3 Sensor Start: 09/22/23 13:41:00 EST, See Instructions, Disp# 1 each, for continuous glucose monitoring, Pharmacy: [facility] Start Date: 09/22/23 Status: Ordered Freestyle Riya 3 Sensor Start: 08/31/23 10:00:00 EST, See Instructions, Disp# 1 applicator, Refills: 3, Apply sensor to armfor continuous glucose monitoring., Pharmacy: [facility] Start Date: 08/31/23 Status: Ordered Insulin Aspart FlexPen 100 units/mL injectable solution Start: 09/22/23 13:57:00 EST, See Instructions, Disp# 15 mL, Inject 15 units SubQ 20 minutes beforemeals, other Start Date: 09/22/23 Status: Ordered Lantus Solostar Pen 100 units/mL subcutaneous solution Start: 09/22/23 13:57:00 EST, 20 unit =, subQ, bid, Disp# 15 mL, other Start Date: 09/22/23 Status: Ordered lisinopril 2.5 mg oral tablet Start: 10/02/23 12:42:00 EST, 1 tab, PO, qPM, Disp# 30 tab, Refills: 11, Pharmacy: [facility] Start Date: 10/02/23 Status: Ordered metFORMIN 500 mg oral tablet Start: 07/21/23 10:05:00 EST, See Instructions, Disp# 90 tab, Refills: 11, 1 tab in am and 2 tab inpm, Pharmacy: [facility] Start Date: 07/21/23 Status: Ordered Metoprolol Succinate ER 25 mg oral tablet, extended release Start: 10/02/23 12:42:00 EST, 1 tab, PO, qPM, Disp# 30 tab, Refills: 11, Pharmacy: [facility] Start Date: 10/02/23 Status: Ordered MiraLax Start: 09/13/22 11:52:00 EST, 17 g =, PO, PRN: constipation Start Date: 09/13/22 Status: Ordered multivitamin Start: 06/16/23 11:50:00 EST, 1 tab, PO, Daily Start Date: 06/16/23 Status: Ordered Neurontin 100 mg oral capsule Start: 06/16/23 12:53:00 EST, 1 cap, PO, qhs, Disp# 30 cap, Refills: 3, Pharmacy: [facility] Start Date: 06/16/23 Stop Date: 10/14/23 Status: Ordered Pressure BioSciencesUCH ULTRA TEST STRIPS Start: 05/25/16 8:47:43, See Instructions, Disp# 100, TEST TWO TIMES DAILY, Pharmacy: [facility], TEST TWO TIMES DAILY Start Date: 05/25/16 Status: Ordered pantoprazole 40 mg oral delayed release tablet Start: 09/04/23 10:40:00 EST, 40 mg =, PO, Daily, Disp# 30 tab, Refills: 11, Pharmacy: [facility] Start Date: 09/04/23 Status: Ordered UltiCare Pen Needle 31G x 6mm Start: 09/04/23 14:12:00 EST, See Instructions, Disp# 30 pen_needle, Refills: 11, morning, Pharmacy: [facility] Start Date: 09/04/23 Status: Ordered Vitamin D3 1250 mcg (50,000 intl units) oral capsule Start: 10/24/23 16:15:00 EDT, 1 cap, PO, qFriday, Disp# 8 cap, Refills: 0, Get Vit.D lab done when completed course., Pharmacy: [facility] Start Date: 10/24/23 Status: Ordered Problem List Condition Confirmation Course Effective Dates Status Health Status Informant IDDM (insulin dependent diabetes mellitus) Confirmed Active 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 Edema Confirmed Active Ganglion cyst Confirmed Active GERD Confirmed Active GOUT Confirmed Active Hypercholesterolemia Confirmed Active HYPERTENSION Confirmed Active Hypertriglyceridemia Confirmed Active Light chain myeloma Confirmed Active Current use of insulin Confirmed Active Lyme disease Confirmed Active Low TSH level Confirmed Active Multiple myeloma Confirmed Active Night sweats Confirmed Active Obesity Confirmed Active Sleep apnea 2 Confirmed Active Polyarthritis Confirmed Active Renal insufficiency 3 Confirmed Active Elevated serum creatinine Confirmed Active 1See outside note 10/06/21 [facility] 09/21/21 2on CPAP 3chronic Procedures Procedure Date Related Diagnosis Body Site Status Shave biopsy and cauterizati on of skin 1 01/15/19 Completed Chest X-ray 2 01/30/[address] of abdomen and pelvis 3 04/06/17 Completed Colonoscopy 4 08/07/15 Completed Shave biopsy and cauterization of skin 06/20/14 Completed Upper GI endoscopy 5 09/09/13 Comp leted distal tendon tear 2010 Comp leted Other 7 1972 Completed 1ED&C 2Negative chest Nondisplaced cortical fractureleft sixth rib midaxillary line [address] [place] [address] Impression: 1.No significant abnormality identified within the abdomen or pelvis. Fatty replacement of the pancreas unchanged from the prior study. Contracted gallbladded possibly containing several small gallstones 4repeat 10 years 5esophageal stricture dilated Dr Alexander 6Right arm 7oral surgeries Social History Social History Type Response Smoking Status Never smoked cigaret raquel Sex Male Patient Care team information Care Team Personnel Name: DO Damon Kristen M Position: Physician - Family Med Member Role: Primary Care Provider Address: Address: [address] [place] [address] [place] Care Team Related Persons Name: SHITAL CHRISTINE Address: home [address], [place] [id number] Name: ASHLEY OROURKE
--- OUTSIDE RECORDS SUMMARY | 2023-12-03 22:12 | External Medical Summary | Summary of Care ---
Author Name Unknown Organization [facility] Address [address] [place] [address] Phone [phone] Care Team Providers Care Trimmer Loader Name Role Phone Marisol Maria Ines Colindres DO Primary Care Provider Reason for Visit * Reason Comments NEW PATIENT * Evaluate & Treat - Unlimited Visits (Within 10 days (routine)) - Pending Review Specialty Diagnoses / Procedures Referred By Contmilagros t Referred To Contact Hospice and Palliative Medicine / Palliative Medicine Diagnoses Pain, cancer Maria Ines Damon DO [address] [facility] [address] [address] Referral ID Status Reason Start Date Expiration Date Visits Requested Visits Authorized [id number] Pending Review Specialty Services Required 11/10/[phone] Encounter Details Date Type Department Care Team (Late st Contact Info) Description 11/14/2023 1:00 PM EDT Office Visit Palliative Medicine, [facility] 400 [facility] 5th [place] [address] Samra Auguste PA-C [address] [place] [address] Multiple myeloma not having achieved remission (HCC)*; [...] needed. You can contact our office at [phone], which is our clinic in [place], or you can message us on [employer]. If you have an emergency outside of [...] in his left hip Follows at the [facility] cancer institute in [place] Takes ibuprofen and diclofenac Currently getting chemo once monthly Eating and drinking well Sleeping OK as long as he isn't on his left side Last BM: today. No issues Other issues: documented in this encounter Plan of Treatment Upcoming Encounters Date Type Department Care Team (Late st Contact Info) Description 11/21/2023 10:15 AM EDT Scheduled Telephone Palliative Medicine, [address] 5th [facility] [place] [address] Fl, Nurse Palliative Medicine [facility] [address] [place] [address] [place] [phone] 12/12/2023 11:00 AM EDT Telemedicine Palliative Medicine, [address] 5th [place], [place] [phone] Stephania Villaseñor MD [address] [place] [address] [id number] Health Maintenance Due Date Last Done Comments [...] care documented in this encounter Care Teams Trimmer Loader Relationship Specialty Start Date End Date Maria Ines Damon DO [address] [place] [address] [address] PCP - General Family Medicine 08/11/16 documented as of this encounter
--- OUTSIDE RECORDS SUMMARY | 2023-12-03 22:12 | External Medical Summary | Summary of Care ---
Author Name Unknown Organization [facility] Address [address] [place] [address] Phone [phone] Care Team Providers Care Retail Buyer Name Role Phone Maria Ines Damon DO Primary Care Provider Reason for Visit * Reason Onset Date Comments Palliative Care Follow-up 11/21/2023 Encounter Details Date Type Department Care Team (Late st Contact Info) Description 11/21/2023 10:15 AM EDT Scheduled Telephone Palliative Medicine, [address] 5th [place] [address] [place], Nurse Palliative Medicine [facility] [address] [place] [id number] Arrived Allergies Active Allergy Reactions Criticality Noted Date Comments Amoxicillin 11/14/2023 Clavulanic Acid 11/14/2023 Diflunisal 08/11/2016 Penicillins 11/14/2023 Valsartan 11/14/2023 documented as of this encounter (statuses as of 11/21/2023) Medications Medication Sig Dispensed Refills Start Date [...] as of this encounter (statuses as of 11/21/2023) Active Problems Problem Noted Date Diagnosed Date Insulin resistance HTN (hypertension) Dyslipidemia documented as of this encounter (statuses as of 11/21/2023) Social History Tobacco Use Types Packs/Day Years Used Date Smoking Tobacco: Never Smokeless Tobacco: Never Alcohol Use Standard Drinks/Week Comments Yes 0 (1 standard drink = 0.6 oz pur e alcohol) Sex and Gender Information Value Date Recorded Sex Assigned at Not on file Gender Identity Not on file Sexual Orientation Not on file Job Start Date Occupation Industry Not on file Not on file Not on file documented as of this encounter Miscellaneous Notes * Telephone Encounter - Winifred Gardner LPN - 11/21/2023 11:27 AM EDT Palliative f/u phone call Last seen 11/13 ASSESSMENT & PLAN: Haroon Adams is a/an 68 year old male referred for consultation to Palliative Medicine with the primary diagnosis of: 1. Multiple myeloma not having achieved remission (HCC) 2. Cancer related pain 3. Loose stools Recommendations: For pain- Patient is currently taking as-needed NSAIDs and 1 dose of gabapentin 100 mg at bedtime. He has not sure that this has helped. He does however have neuropathic pain from uncertain source. Because of this, we will start by titrating up his gabapentin to see if he has additional benefit from this medication. Recommended starting with gabapentin 300 mg at bedtime for 3-4 days, and then increase to 300 mg twice daily. He was agreeable to this plan. If he has continued problems with pain in his left hip, consider addition of oxycodone 5 mg Q4H as needed. For loose stools- Discussed considering the addition of Metamucil powder once or twice daily to help bulk stools. It seems likely that his medications are potentially contributing to his loose bowels. Bring AD documents for review and discussion. Consider completing and discussing POLST form at nextvisit as well Obtain Oncology records including office notes, imaging, and recent labs. Follow up in 1 month or sooner as needed. Phone call to patient Spoke with patient He is currently taking 200mg BID He states his pain seems to be OK, but could be better Advised patient that the note said he could increase to 300mg BID He is going to increased to 300mg BID and see if that gives him better relief If symptoms worsen or change, he will call us Confirmed 12/11 visit documented in this encounter Plan of Treatment Upcoming Encounters Date Type Department Care Team (Late st Contact Info) Description 12/12/2023 11:00 AM EDT Telemedicine Palliative Medicine, [address] 5th Floor [place], [place] [phone] Stephania Villaseñor MD [address] [place], [place] [phone] Health Maintenance Due Date Last Done Comments GFR 1955 Lipid Panel 1953 Depression Screening 1965 Albumin/Creatinine Ratio 1971 Hepatitis C Screening 1971 DTaP,Tdap,and Td Vaccines (1 - Tdap) 1972 Cologuard 1998 Colonoscopy 1998 Colorectal Cancer Screening 1998 Fecal Occult Blood Test 1998 Sigmoidoscopy 1998 COVID-19 Vaccine ( season) 2023 02/25/2022, 02/25/2022, 10/23/2020, Additional history exists Influenza Vaccine (FLU shot) (Season Ended) 2024 06/11/2019, 03/27/2012 Pneumococcal Vaccine: 65+ Years (3 of 3 - PPSV23 or PCV20) 02/11/2025 02/12/2020, 06/30/2015 Zoster Vaccines Completed 06/19/2020, 01/28, 06/17/2014 GARDASIL-HPV IMMUNIZATION SERIES Aged Out No longer eligible based on patient's age to complete this topic Hepatitis B Aged Out No longer eligi ble based on patient's age to complete this topic MENINGOCOCCAL (MENACTRA/MENVEO) Aged Out No longer eligible based on patient's age to complete this topic documented as of this encounter Medical Devices Not on filedocumented as of this encounter Care Teams Retail Buyer Relationship Specialty Start Date End Date Maria Ines Damon DO [address] [place] [address] Dr Castillo [address] [place] [address], [place] [address] PCP - General Family Medicine 08/11/16 documented as of this encounter
--- OUTSIDE RECORDS SUMMARY | 2023-12-03 22:12 | External Medical Summary | Summary of Care ---
Author Name Unknown Organization [facility] Address [address] [place] [address] Phone [phone] Care Team Providers Care Premix Concrete Batcher Name Role Phone Maria Ines Damon DO Primary Care Provider Reason for Visit * Reason Comments eRx-Medication Refill Encounter Details Date Type Department Care Team (Late st Contact Info) Description 11/30/2023 Refill Palliative Medicine, [facility] [address] [facility] 5th Floor [place], [place] [id number] Samra Good PAJesse [address] [place], [place] [phone] Cancer related pain Allergies Active Allergy Reactions Criticality Noted Date Comments Amoxicillin 11/14/2023 Clavulanic Acid 11/14/2023 Diflunisal 08/11/2016 Penicillins 11/14/2023 Valsartan 11/14/2023 documented as of this encounter (statuses as of 11/30/2023) Medications Medication Sig Dispensed Refills Start Date End Date Status MetFORMIN (GLUCOPHAGE) 1000 MG Tablet Take 1,000 mg by mouth 2 times a day with morning and evening meals. 0 Active Lisinopril 30 MG Tablet Take 30 mg by mouth daily. 0 Active hydrochlorothiazi de (HYDRODIURIL) 25 MG Tablet Take 25 mg [...] 0 Active Gabapentin 300 MG Oral Capsule (Neurontin)Indica tions:Cancer related pain TAKE 1 CAPSULE BY MOUTH EVERY MORNING AND BEFORE BEDTIME. 60 Capsule 0 4 Active Gabapentin 300 MG Oral Capsule (Neurontin)Indica tions:Cancer related pain Take 1 Capsule by mouth in the morning and 1 Capsule before bedtime. 60 Capsule 0 4 11/30/19 24 Discontinued documented as of this encounter (statuses as of 11/30/2023) Active Problems Problem Noted Date Diagnosed Date Insulin resistance HTN (hypertension) Dyslipidemia documented as of this encounter (statuses as of 11/30/2023) Social History Tobacco Use Types Packs/Day Years [...] encounter Miscellaneous Notes * Telephone Encounter - Samra Good PA-C - 11/30/2023 9:35 AM EDTSigned Prescriptions: Disp Refills Gabapentin 300 MG Oral Capsule (Neurontin) 60 Cap*0 Sig: TAKE 1 CAPSULE BY MOUTH EVERY MORNING AND BEFORE BEDTIME.Authorizing Provider: SAMRA GOOD * Telephone Encounter - Tremaine Alexis MD - 11/30/2023 7:35 AM EDTPending Prescriptions: Disp Refills Gabapentin 300 MG Oral Capsule [Pharmacy M*60 Cap*0 Sig: TAKE 1CAPSULE BY MOUTH EVERY MORNING AND BEFORE BEDTIME. documented in this encounter Plan of Treatment Upcoming Encounters Date Type Department Care Team (Late st Contact Info) Description 12/12/2023 11:00 AM EDT Telemedicine Palliative Medicine, [address] 5th Floor [place], [place] [phone] Stephania Villaseñor MD [address] [place] [address] Health Maintenance Due Date Last Done Comments GFR 1953 Lipid Panel 1953 Depression Screening 1965 Albumin/Creatinine Ratio 1971 Hepatitis C Screening 1971 DTaP,Tdap,and Td Vaccines (1 - Tdap) 1972 Cologuard 1998 Colonoscopy 1998 Colorectal Cancer Screening 1998 Fecal Occult Blood Test 1998 Sigmoidoscopy 1998 COVID-19 Vaccine ( - season) 2023 02/25/2022, 02/25/2022, 10/23/2020, Additional history [...] as of this encounter Visit Diagnoses Diagnosis Cancer related pain Neoplasm related pain (acute) (chronic) documented in this encounter Care Teams Premix Concrete Batcher Relationship Specialty Start Date End Date Maria Ines Damon DO [address] [place] [address] [place] [address] PCP - General Family Medicine 08/11/16 documented as of this encounter
--- OUTSIDE RECORDS SUMMARY | 2023-12-03 22:12 | External Medical Summary | Summary of Care ---
Author Name Unknown Organization [facility] Address [address] [place] [address] Phone [phone] Care Team Providers Care Pony Worker Name Role Phone Maria Ines Damon DO Primary Care Provider Reason for Visit * Reason Onset Date Comments Palliative Care Follow-up 11/14/2023 Encounter Details Date Type Department Care Team (Late st Contact Info) Description 11/14/2023 Telephone Palliative Medicine, [facility] [address] [facility] 5th Floor [place], [place] [phone] Samra Auguste PA-C [address] [place], [place] [phone] Palliative Care Follow-up Allergies Active Allergy Reactions Criticality Noted Date [...] Telephone Encounter - Winifred Gardner LPN - 11/14/2023 3:05 PM EDT Call to [facility] They require a fax cover sheet for medical records Sent fax to [phone] requesting the following: -last hem/onc notes -most recent labs -most recent imaging reports (CT scans/MRI/PET) documented in this encounter Plan of Treatment Upcoming Encounters Date Type Department Care Team (Late st Contact Info) Description 11/21/2023 10:15 AM EDT Scheduled Telephone Palliative Medicine, [facility] [address] [facility] 5th [place] [address] Fl, Nurse Palliative Medicine [facility] 5th [address] [facility] [place] [address] 12/12/2023 11:00 AM EDT Telemedicine Palliative Medicine, [facility] [address] [facility] 5th [place] [address] Stephania Villaseñor MD [address] [place] [address] Health Maintenance Due Date Last Done Comments [...] filedocumented as of this encounter Care Teams Pony Worker Relationship Specialty Start Date End Date Maria Ines Damon DO [address] [place] [address], [place] [address] PCP - General Family Medicine 08/11/16 documented as of this encounter
--- OUTSIDE RECORDS SUMMARY | 2023-12-03 22:13 | External Medical Summary | Continuity of Care Document ---
Author Name Unknown Organization [facility] Address [address] [place] [address] [place] [phone] Care Team Providers Care Needle Setter Name Role Phone Maria Ines Damon Primary Care Physician [phone] Encounter [facility] [id number] Date(s): 10/24/23 - 10/24/23 [facility] [address] [facility] [id number], [place] [id number]- [phone] Encounter Diagnosis Drug-induced osteoporosis(Discharge Diagnosis) - 10/24/23 Age-related osteoporosis with current pathological fracture with routine healing (Discharge Diagnosis) - 10/24/23 Osteomalacia(Discharge Diagnosis) - 10/24/23 Hypotestosteronism(Discharge Diagnosis) - 10/24/23 Diabetes mellitus due to underlying condition, uncontrolled, with hyperglycemia (Discharge Diagnosis) - 10/24/23 Discharge Disposition: Home or Self Care Attending Physician: MD Ruvalcaba Edward J Referring Physician: MD Ruvalcaba Edward J Allergies, Adverse Reactions, Alerts Substance Reaction Severity Status Dolobid vomitting nausea violent chills Active Diovan lip swelling Active Allergy Not found in Search sugar frosted flakes-rash Active Assessment and Plan Extracted from: Title:Follow Up Visit Author:MD Ruvalcaba Edward J D ate:10/24/23 Age-related osteoporosis with current pathological fracture with routine healing 68-year-old male with a history of myeloma, on Xgeva, presents 1 year after sustaining a left superior inferior pubic ramus fracture, 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 [1] Uncontrolled diabetes. Hypotestosteronism. Low vitamin D. I described above findings to the patient and his friend. At this point time,he is on Xgeva for low bone density related to his insufficiency fracture of the pubic bone. Secondary osteoporosis laboratories revealed uncontrolled glucose; he is seeing his primary care physician for thisand several medication changes have been made. Secondary osteoporosis laboratories also identified a low testosterone level as well as a lowvitamin D level. Will correct his low vitamin Dlevel of 27 with a high-dose vitamin D 50,000 international units p.o. weekly x 8 weeks,with a repeat vitamin D 25 levelin 3 months time. Low testosterone level will be addressed by endocrinologywho may also be able to help with his uncontrolled diabetes. Consultation was placedhoweverwill need to be done closer to home [facility]. They understood this and agree with above plan. Immunizations Given and Recorded Vaccine Date Status [...] blood sugar threee times daily E11.9, Pharmacy: [id number] Start Date: 09/22/23 Status: Ordered acyclovir Start: 08/29/23 13:36:00 EST, 400 mg =, PO, bid Start Date: 08/29/23 Status: Ordered atorvastatin 40 mg oral tablet Start: 06/05/23 15:02:00 EST, See Instructions, Disp# 90 tab, Refills: 3, TAKE 1 TABLET BY MOUTH ATBEDTIME, Pharmacy: [id number] Start Date: 06/05/23 Status: Ordered Baqsimi One Pack 3 mg nasal powder Start: 10/13/23 11:57:00 EDT, See Instructions, Disp# 2 mL, Refills: 0, USE 1 SPRAY IN ONE NOSTRIL NEEDED FOR HYPOGLYCEMIA; MAY REPEAT IN 15 MINUTES, Pharmacy: [facility] Start Date: 10/13/23 Status: Ordered dexAMETHasone 4 mg oral tablet Start: 06/16/23 12:52:00 EST, 1 tab, PO, Daily, Disp# 30 tab, Refills: 3, Pharmacy: [facility] Start Date: 06/16/23 Stop Date: 10/14/23 Status: Ordered diclofenac sodium 75 mg oral delayed release tablet Start: 10/13/23 11:57:00 EDT, 1 tab, PO, bid, Disp# 60 tab, Refills: 2, PRN: NEEDED FOR ARTHRITIS, Pharmacy: [facility] Start Date: 10/13/23 Status: Ordered Eliquis 5 mg oral tablet Start: 10/02/23 15:21:00 EST, 1 tab, PO, bid, Disp# 60 tab, Refills: 2, Pharmacy: [facility] Start Date: 10/02/23 Stop Date: 12/31/23 Status: Ordered Freestyle Riya 3 reader Start: 09/22/23 13:41:00 EST, See Instructions, Disp# 1 each, for continuous glucose monitoring, Pharmacy: [facility] Start Date: 09/22/23 Status: Ordered Freestyle Riya 3 Sensor Start: 09/22/23 13:41:00 EST, See Instructions, Disp# 1 each, for continuous glucose monitoring, Pharmacy: [facility] Start Date: 09/22/23 Status: Ordered Freestyle Riya 3 Sensor Start: 08/31/23 10:00:00 EST, See Instructions, Disp# 1 applicator, Refills: 3, Apply sensor to armfor continuous glucose monitoring., Pharmacy: [facility] Start Date: 08/31/23 Status: Ordered Insulin Aspart FlexPen 100 units/mL injectable solution Start: 09/22/23 13:57:00 EST, See Instructions, Disp# 15 mL, Inject 12 units SubQ 20 minutes beforemeals, other Start Date: 09/22/23 Status: Ordered Lantus Solostar Pen 100 units/mL subcutaneous solution Start: 09/22/23 13:57:00 EST, 30 unit =, subQ, Daily, Disp# 15 mL, other Start Date: 09/22/23 Status: Ordered lisinopril 2.5 mg oral tablet Start: 10/02/23 12:42:00 EST, 1 tab, PO, qPM, Disp# 30 tab, Refills: 11, Pharmacy: [facility] Start Date: 10/02/23 Status: Ordered metFORMIN 500 mg oral tablet Start: 07/21/23 10:05:00 EST, See Instructions, Disp# 90 tab, Refills: 11, 1 tab in am and 2 tab inpm, Pharmacy: [facility] Start Date: 07/21/23 Status: Ordered Metoprolol Succinate ER 25 mg oral tablet, extended release Start: 10/02/23 12:42:00 EST, 1 tab, PO, qPM, Disp# 30 tab, Refills: 11, Pharmacy: [facility] Start Date: 10/02/23 Status: Ordered MiraLax Start: 09/13/22 11:52:00 EST, 17 g =, PO, PRN: constipation Start Date: 09/13/22 Status: Ordered multivitamin Start: 06/16/23 11:50:00 EST, 1 tab, PO, Daily Start Date: 06/16/23 Status: Ordered Neurontin 100 mg oral capsule Start: 06/16/23 12:53:00 EST, 1 cap, PO, qhs, Disp# 30 cap, Refills: 3, Pharmacy: [facility] Start Date: 06/16/23 Stop Date: 10/14/23 Status: Ordered ONETOUCH ULTRA TEST STRIPS Start: 05/25/16 8:47:43, See Instructions, Disp# 100, TEST TWO TIMES DAILY, Pharmacy: [facility], TEST TWO TIMES DAILY Start Date: 05/25/16 Status: Ordered pantoprazole 40 mg oral delayed release tablet Start: 09/04/23 10:40:00 EST, 40 mg =, PO, Daily, Disp# 30 tab, Refills: 11, Pharmacy: [facility] Start Date: 09/04/23 Status: Ordered UltiCare Pen Needle 31G x 6mm Start: 09/04/23 14:12:00 EST, See Instructions, Disp# 30 pen_needle, Refills: 11, morning, Pharmacy: [facility] Start Date: 09/04/23 Status: Ordered Vitamin D3 1250 mcg (50,000 intl units) oral capsule Start: 10/24/23 16:15:00 EDT, 1 cap, PO, qFriday, Disp# 8 cap, Refills: 0, Get Vit.D lab done when completed course., Pharmacy: [facility] Start Date: 10/24/23 Status: Ordered Vitamin D3 2000 intl units (50 mcg) oral capsule Start: 06/16/23 11:50:00 EST, 1 cap, PO, Daily Start Date: 06/16/23 Status: Ordered Mental Status 10/24/23 Barriers to Learning one year None evide nt Mandatory Health Literacy Documentation Yes Health Literacy Communication Barriers N ever Primary Language Ethiopian Problem List Condition Confirmation Course Effective Dates Status Health Status Informant IDDM (insulin dependent diabetes mellitus) Confirmed Active 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 Edema Confirmed Active Ganglion cyst Confirmed Active GERD Confirmed Active GOUT Confirmed Active Hypercholesterolemia Confirmed Active HYPERTENSION Confirmed Active Hypertriglyceridemia Confirmed Active Light chain myeloma Confirmed Active Lyme disease Confirmed Active Low TSH level Confirmed Active Multiple myeloma Confirmed Active Night sweats Confirmed Active Obesity Confirmed Active Sleep apnea 2 Confirmed Active Polyarthritis Confirmed Active Renal insufficiency 3 Confirmed Active Elevated serum creatinine Confirmed Active 1See outside note 10/06/21 [facility] 09/21/21 2on CPAP 3chronic Diagnosis Diagnosis Type Effective Dates Health Status Clinical Service Informant Osteomalacia Discharge Diagnosis 10/24/23 Non-Specified Hypotestosteronism Discharge Diagnosis 10/24/23 Non-Specified Diabetes mellitus due to underlying condition, uncontrolled, with hyperglycemia Discharge Diagnosis 10/24/23 Non-Specified Drug-induced osteoporosis Discharge Diagnosis 10/24/23 Non-Specified Age-related osteoporosis with current pathological fracture with routine healing Discharge Diagnosis 10/24/23 Non-Specified Procedures Procedure Date Related Diagnosis Body Site [...] Nondisplaced cortical fractureleft sixth rib midaxillary line [address] [place] [address] Impression: 1.No significant abnormality identified within the abdomen or pelvis. Fatty replacement of the pancreas unchanged from the prior study. Contracted gallbladded possibly containing several small gallstones 4repeat 10 years 5esophageal stricture dilated Dr Alexander 6Right arm 7oral surgeries Social History Social History Type Response Smoking Status Never smoked cigaret raquel Sex Male Ortho Outpt Note * MD Jordon, Vitaly J: PERFORM Event Display: Ortho Outpt Note Authored Date: [id number] Chief Complaint 5 week follow up Primary Care Provider DO Damon Kristen M Subjective Mr. Adams is here for follow-up today. States that he is on Xgeva. Did obtain secondary osteoporosis laboratory. DEXA scan is still pendingfor December 22, 2023. Objective Physical Exam Patient arrives in a wheelchair but able to mobilize to a chair,skin intact,normal capillary refill. 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 [1] Uncontrolled diabetes. Hypotestosteronism. Low vitamin D. I described above findings to the patient and his friend. At this point time,he is on Xgeva forlow bone density related to his insufficiency fracture of the pubic bone. Secondary osteoporosis laboratories revealed uncontrolled glucose; he is seeing his primary care physician for thisand several medication changes have been made. Secondary osteoporosis laboratories also identified a lowtestosterone level as well as a lowvitamin D level. Will correct his low vitamin Dlevel of 27with a high-dose vitamin D 50,000 international units p.o. weekly x 8 weeks,with a repeat vitaminD 25 levelin 3 months time. Low testosterone level will be addressed by endocrinologywho may also be able to help with his uncontrolled diabetes. Consultation was placedhoweverwill need to be done closer to home [facility]. They understood this and agree with above plan. Attestation Physician Attestation: Seen and examined, notes reviewed, exam confirmed for this patient on date of service and agree with the above note. Have not seen the patient. Have reviewed the note. Have not seen patient, have reviewed the note, and I have personally discussed with the resident and/or physician patternator on the date of service. x Other: 20minutes time was spent with this patient face to face, >50% of which was utilized discussing imaging and treatment plan. [1]Ortho Outpt Note; MD Licea Shawn M 08/29/2023 13:56 EST Electronic Signature on File CC: Maria Ines Damno DO [address] [facility] [address] [facility] [place] [address] CC: JAMARI Márquez [address] [address] Electronically Reviewed/Signed by: Vitaly Ruvalcaba MD Author Signature Dt/Tm:10/24/2023 06:13 PM Division of Orthopaedics [facility] Patient Care team information Care Team Personnel Name: DO Damon Kristen M Position: Physician - Family Med Member Role: Primary Care Provider Address: Address: [address] [facility] [address] [place] [address] Care Team Related Persons Name: SHITAL ADAMS Address: home [address] [facility] [place] [id number]
--- OUTSIDE RECORDS SUMMARY | 2023-12-03 22:13 | External Medical Summary | Summary of Care ---
Author Name Unknown Organization [facility] Address [address] [place] [address] Phone [phone] Care Team Providers Care Band Maker Name Role Phone Maria Ines Damon DO Primary Care Provider Reason for Referral * Evaluate & Treat - Unlimited Visits (Within 10 days (routine)) - Pending Review Specialty Diagnoses / Procedures Referred By Talat gardner Referred To Contact Hospice and Palliative Medicine / Palliative Medicine Diagnoses Pain, cancer Maria Ines Damon DO [address] [facility] [address] [address] Referral ID Status Reason Start Date Expiration Date Visits Requested Visits Authorized [id number] Pending Review Specialty Services Required 11/10/[phone] Question Answer Referral Priority Within 10 days (routine) Where should this appointment be scheduled? Disha Reason for Referral: Cancer Palliative Medicine To Address: Pain & Symptom Management Referral Location Office Comments Notes scanned into Epic 11/10/23 crb Encounter Details Date Type Department Care Team (Late st Contact Info) Description 11/10/2023 Orders Only Access [facility], [place] [address] [place] [address] Ext *DO NOT REMOVE THIS DEPARTMENT* [place] [id number] Request, External Referral Pain, cancer* Allergies Active Allergy Reactions Criticality Noted Date Comments Diflunisal 08/11/2016 documented as of this encounter (statuses as of 11/10/2023) Medications Medication Sig Dispensed Refills Start Date End Date Status MetFORMIN (GLUCOPHAGE) 1000 MG Tablet Take 1,000 mg by mouth 2 times a day with morning and evening meals. 0 Active Lisinopril 30 MG Tablet Take 30 mg by mouth daily. 0 Active hydrochlorothiazide (HYDRODIURIL) 25 MG Tablet Take 25 mg by mouth daily. 0 Active atorvaSTATin (LIPITOR) 10 MG Tablet Take 10 mg by mouth daily. 0 Active Aspirin 81 MG Tablet Take 81 mg by mouth daily. 0 Active Vitamin D, Cholecalciferol, 1000 UNITS CAPS Take by mouth. 0 Active Multiple Vitamin (MULTI VITAMIN DAILY) TABS Take by mouth. 0 Active documented as of this encounter (statuses as of 11/10/2023) Active Problems Problem Noted Date Diagnosed Date Insulin resistance HTN (hypertension) Dyslipidemia documented as of this encounter (statuses as of 11/10/2023) Social History Tobacco Use Types Packs/Day Years Used Date Smoking Tobacco: Never Smokeless Tobacco: Never Alcohol Use Standard Drinks/Week Comments Yes 0 (1 standard drink = 0.6 oz pur e alcohol) Sex and Gender Information Value Date Recorded Sex Assigned at Not on file Gender Identity Not on file Sexual Orientation Not on file documented as of this encounter Plan of Treatment Scheduled Referrals Name Type Priority Associated Diagnoses Orde r Schedule PALLIATIVE CARE REFERRAL OP Referral Within 10 days (routine) Pain, cancer Ordered: 11/10/2023 Health Maintenance Due Date Last Done Comments GFR 1953 Lipid Panel 1953 Depression Screening 1965 Albumin/Creatinine Ratio 1971 Hepatitis C Screening 1971 DTaP,Tdap,and Td Vaccines (1 - Tdap) 1972 Cologuard 1998 Colonoscopy 1998 Colorectal Cancer Screening 1998 Fecal Occult Blood Test 1998 Sigmoidoscopy 1998 Zoster Vaccines (1 of 2) 2003 Pneumococcal Vaccine: 65+ Ye ars (1 of 1 - PCV) 2018 COVID-19 Vaccine ( - 2022-2 4 season) 2023 Influenza Vaccine (FLU shot) (Season Ended) 2024 GARDASIL-HPV IMMUNIZATION SERIES Aged Out No longer [...] as of this encounter Visit Diagnoses Diagnosis Pain, cancer- Primary Neoplasm related pain (acute) (chronic) documented in this encounter Care Teams Band Maker Relationship Specialty Start Date End Date Maria Ines Damon DO [address] [facility] [address], [place] [address] PCP - General Family Medicine 08/11/16 documented as of this encounter
--- OUTSIDE RECORDS SUMMARY | 2023-12-03 22:13 | External Medical Summary | Continuity of Care Document ---
Author Name Unknown Organization [address] Address [address] [place] [address] [id number] Care Team Providers Care Manufacturing Lead Name Role Phone Maria Ines Damon Primary Care Physician [phone] Encounter [facility] [id number] Date(s): 11/06/23 - 11/06/[address] [facility] [address] [facility], [address] [phone] Encounter Diagnosis Diabetes mellitus with hyperglycemia(Discharge Diagnosis) - 11/06/23 Cancer related pain(Discharge Diagnosis) - 11/06/23 Discharge Disposition: Home or Self Care Attending Physician: Ray Phillips DO, Mariana Annette Referring Physician: DO Damon Kristen M Allergies, Adverse Reactions, Alerts Substance Reaction Severity Status Dolobid vomitting nausea violent chills Active Allergy Not found in Search sugar frosted flakes-rash Active Diovan lip swelling Active Assessment and Plan Extracted from: Title:Office Visit Note Author:Ray Phillips DO, Mariana Annette Date:11/06/23 1.Diabetes mellitus with h yperglycemia STATUS:Chronic, not at goal DATA:Labs reviewed. A1c at 10.9 from >13. GOAL:normoglycemia PLAN:increase lantus to 25 units BID, humalog to 15 units pre-meal. Will reach out to diabetes RN to set up CGM. Advised to make endocrinology appointment for further input on BG. 2.Cancer related pain Referral to palliative care for management Immunizations Given and Recorded Vaccine Date Status Refusal Reason influenza virus vaccine, inactivated 05/31/22 Give n influenza virus vaccine, inactivated 05/03/21 Give n influenza virus vaccine, inactivated 11/12/19 Give n influenza virus vaccine, inactivated 06/07/18 [...] blood sugar threee times daily E11.9, Pharmacy: [id number] Start Date: 09/22/23 Status: Ordered acyclovir Start: 08/29/23 13:36:00 EST, 400 mg =, PO, bid Start Date: 08/29/23 Status: Ordered atorvastatin 40 mg oral tablet Start: 06/05/23 15:02:00 EST, See Instructions, Disp# 90 tab, Refills: 3, TAKE 1 TABLET BY MOUTH ATBEDTIME, Pharmacy: [id number] Start Date: 06/05/23 Status: Ordered Baqsimi One Pack 3 mg nasal powder Start: 10/13/23 11:57:00 EDT, See Instructions, Disp# 2 mL, Refills: 0, USE 1 SPRAY IN ONE NOSTRIL NEEDED FOR HYPOGLYCEMIA; MAY REPEAT IN 15 MINUTES, Pharmacy: [id number] Start Date: 10/13/23 Status: Ordered dexAMETHasone 4 mg oral tablet Start: 10/29/23 0:27:00 EDT, 1 tab, PO, Daily, Disp# 30 tab, Refills: 3, Pharmacy: [facility] Start Date: 10/29/23 Status: Ordered diclofenac sodium 75 mg oral delayed release tablet Start: 10/13/23 11:57:00 EDT, 1 tab, PO, bid, Disp# 60 tab, Refills: 2, PRN: NEEDED FOR ARTHRITIS, Pharmacy: [id number] Start Date: 10/13/23 Status: Ordered Eliquis 5 mg oral tablet Start: 10/02/23 15:21:00 EST, 1 tab, PO, bid, Disp# 60 tab, Refills: 2, Pharmacy: [facility] Start Date: 10/02/23 Stop Date: 12/31/23 Status: Ordered Freestyle Riya 3 reader Start: 09/22/23 13:41:00 EST, See Instructions, Disp# 1 each, for continuous glucose monitoring, Pharmacy: [id number] Start Date: 09/22/23 Status: Ordered Freestyle Irya 3 Sensor Start: 09/22/23 13:41:00 EST, See Instructions, Disp# 1 each, for continuous glucose monitoring, Pharmacy: [id number] Start Date: 09/22/23 Status: Ordered Freestyle Riya 3 Sensor Start: 08/31/23 10:00:00 EST, See Instructions, Disp# 1 applicator, Refills: 3, Apply sensor to armfor continuous glucose monitoring., Pharmacy: [facility] Start Date: 08/31/23 [...] qPM, Disp# 30 tab, Refills: 11, Pharmacy: [facility] Start Date: 10/02/23 Status: Ordered metFORMIN 500 mg oral tablet Start: 07/21/23 10:05:00 EST, See Instructions, Disp# 90 tab, Refills: 11, 1 tab in am and 2 tab inpm, Pharmacy: [facility] Start Date: 07/21/23 Status: Ordered Metoprolol Succinate ER 25 mg oral tablet, extended release Start: 10/02/23 12:42:00 EST, 1 tab, PO, qPM, Disp# 30 tab, Refills: 11, Pharmacy: [facility] Start Date: 10/02/23 Status: Ordered MiraLax Start: 09/13/22 11:52:00 EST, 17 g =, PO, PRN: constipation Start Date: 09/13/22 Status: Ordered multivitamin Start: 06/16/23 11:50:00 EST, 1 tab, PO, Daily Start Date: 06/16/23 Status: Ordered Neurontin 100 mg oral capsule Start: 06/16/23 12:53:00 EST, 1 cap, PO, qhs, Disp# 30 cap, Refills: 3, Pharmacy: [facility] Start Date: 06/16/23 Stop Date: 10/14/23 Status: Ordered MBio DiagnosticsTOUCH ULTRA TEST STRIPS Start: 05/25/16 8:47:43, See Instructions, Disp# 100, TEST TWO TIMES DAILY, Pharmacy: [facility], TEST TWO TIMES DAILY Start Date: 05/25/16 Status: Ordered pantoprazole 40 mg oral delayed release tablet Start: 09/04/23 10:40:00 EST, 40 mg =, PO, Daily, Disp# 30 tab, Refills: 11, Pharmacy: [facility] Start Date: 09/04/23 Status: Ordered UltiCare Pen Needle 31G x 6mm Start: 09/04/23 14:12:00 EST, See Instructions, Disp# 30 pen_needle, Refills: 11, morning, Pharmacy: [facility] Start Date: 09/04/23 Status: Ordered Vitamin D3 1250 mcg (50,000 intl units) oral capsule Start: 10/24/23 16:15:00 EDT, 1 cap, PO, qFriday, Disp# 8 cap, Refills: 0, Get Vit.D lab done when completed course., Pharmacy: [id number] Start Date: 10/24/23 Status: Ordered Mental Status 11/06/23 Barriers to Learning one year None evide nt Mandatory Health Literacy Documentation Yes Health Literacy Communication Barriers N ever Primary Language Syriac Problem List Condition Confirmation Course Effective Dates [...] Effective Dates Health Status Clinical Service Informant Cancer related pain Discharge Diagnosis 11/06/23 Non-Specified Diabetes mellitus with hyperglycemia Discharge Diagnosis 11/06/23 Procedures Procedure Date Related Diagnosis Body Site [...] Nondisplaced cortical fractureleft sixth rib midaxillary line [address] [place] [id number] Impression: 1.No significant abnormality identified within the abdomen or pelvis. Fatty replacement of the pancreas unchanged from the prior study. Contracted gallbladded possibly containing several small gallstones 4repeat 10 years 5esophageal stricture dilated Dr Alexander 6Right arm 7oral surgeries Vital Signs Most recent to oldest [Reference Range]: 1 Patient Weight 86.2 kg (11/06/23 1:43 PM) Temperature [36.5-37.9 DegC] 36.7 DegC (11/06/23 1:43 PM) Social History Social History Type Response Smoking Status Never smoked cigaret raquel Sex Male FCM Outpt Note * Ray Phillips DO Bernadineryanne Larson: PERFORM Event Display: FCM Outpt Note Authored Date: Chief Complaint Pt here for f/u History of Present Illness Presents for f/u on diabetes Last A1c was 10.9 was feeling lightheaded this morning, at that time his BG was 210 A few nights ago his BG was 500, he went back to sleep and when he woke up it was in he 200s. BG 300-400 at night. Usually 200-300. Not checking BG after meals because it "rose rockets" has not been able to set up Riya CGM Currently on 37 units on lantus qAM and 12 units humalog w meals. Does not have an appt with endocrinology yet Diet: eats mainly canned food or frozen food, sometimes eats out Endorses cancer related pain keeping him awake at night, states he has not seen pain management of palliative care for this. Physical Exam Vitals & Measurements T:36.7C SpO2:97% WT:86.200kg(Dosing) WT:86.2kg PHQ2 Data(Data Documented on:11/06/2023 13:43) Emotional health assessment NEGATIVE General: _Alert and oriented, No acute distress Cardiovascular: _Normal rate, Regular rhythm, No murmur, No gallop. Respiratory: _Lungs are clear to auscultation, Respirations are non-labored, Breath sounds are equal Psych: Mood-affect congruence. Reports no SI/HI. Speech is of normal pace and content Assessment/Plan 1.Diabetes mellitus with hyperglycemia STATUS:Chronic, not at goal DATA:Labs reviewed. A1c at 10.9 from >13. GOAL:normoglycemia PLAN:increase lantus to 25 units BID, humalog to 15 units pre-meal. Will reach out to diabetes RNto set up CGM. Advised to make endocrinology appointment for further input on BG. 2.Cancer related pain Referral to palliative care for management Attestation Time spent: Pre-visit planning: _4 Gnku-to-iisn visit: _25 Post-visit (orders/documentation/coordination of care):7 Total visit time: 36 Problem List/Past Medical History Ongoing Current use of insulin Diabetes mellitus with cataract Edema Elevated serum creatinine Ganglion cyst GERD GOUT Hypercholesterolemia HYPERTENSION Hypertriglyceridemia IDDM (insulin dependent diabetes mellitus) Light chain myeloma Low TSH level Lyme disease Multiple myeloma Night sweats Obesity Polyarthritis Renal insufficiency Sleep apnea Historical Abnormal finding on EKG Acute bronchitis Acute upper respiratory infection ALLERGIC RHINITIS Atypical pneumonia Bilateral flank pain Chest pain Facial paresthesia Fatigue Health care maintenance Injury of left hand Laceration of left hand Lyme disease Participant in health and wellness plan Substernal chest pain Type 2 diabetes mellitus Weight disorder Procedure/Surgical History Shave biopsy and cauterization of skin| Service Date: 01/15/2019Chest X- ray| Service Date: 01/30/2018CT of abdomen and pelvis| Service Date: 04/06/2017Colonoscopy| Service Date: 08/07/2015Shave biopsy and cauterization of skin| Service Date: 06/20/2014Upper GI endoscopy| Service Da te: 09/09/2013distal tendon tear| Service Date: 2010Other| Service Date: 1972 Medications acyclovir, 400 mg, PO, bid apixaban(Eliquis 5 mg oral tablet), 5 mg= 1 tab, PO, bid, 2 refills atorvastatin(atorvastatin 40 mg oral tablet), See Instructions, 3 refills cholecalciferol(Vitamin D3 1250 mcg (50,000 intl units) oral capsule), [address] Int_Unit= 1 cap, PO, qFriday dexAMETHasone(dexAMETHasone 4 mg oral tablet), 1 tab, PO, Daily diabetes supplies(Accu-Chek Josephine Plus Test Strips), See Instructions, 4 refills diabetes supplies(Freestyle Riya 3 Sensor), See Instructions diabetes supplies(Freestyle Riya 3 reader), See Instructions diabetes supplies(Freestyle Riya 3 Sensor), See Instructions, 3 refills diabetic supplies(ONETOUCH ULTRA TEST STRIPS), See Instructions diclofenac(diclofenac sodium 75 mg oral delayed release tablet), 1 tab, PO, bid, PRN gabapentin(Neurontin 100 mg oral capsule), 100 mg= 1 cap, PO, qhs, 3 refills glucagon(Baqsimi One Pack 3 mg nasal powder), See Instructions insulin aspart(Insulin Aspart FlexPen 100 units/mL injectable solution), See Instructions insulin glargine(Lantus Solostar Pen 100 units/mL subcutaneous solution), 20 unit, subQ, bid lisinopril(lisinopril 2.5 mg oral tablet), 1 tab, PO, qPM metFORMIN(metFORMIN 500 mg oral tablet), See Instructions, 11 refills metoprolol(Metoprolol Succinate ER 25 mg oral tablet, extended release), 1 tab, PO, qPM multivitamin, 1 tab, PO, Daily pantoprazole(pantoprazole 40 mg oral delayed release tablet), 40 mg, PO, Daily, 11 refills polyethylene glycol 3350(MiraLax), 17 g, PO, PRN syringe needles(UltiCare Pen Needle 31G x 6mm), See Instructions, 11 refills Allergies Allergy Not found in Searchsugar frosted flakes-rash Diovanlip swelling Dolobidvomitting, nausea, violent chills Social History Smoking Status Never smoked cigarettes Tobacco - Denies Tobacco Use Use:Never smoker Family History Alzheimer disease: Father. Diabetes: Mother. Hyperlipidemia..: Father. Health Status Family Member(s) Immunizations Vaccine Date Status influenza virus vaccine, inactivated 05/31/2022 Given SARS-CoV-2 (COVID-19) mRNA BNT-162b2 vax 02/25/2022 Recorded influenza virus vaccine, inactivated 05/03/2021 Given SARS-CoV-2 (COVID-19) mRNA BNT-162b2 vax 10/23/2020 Recorded Comments : 2022-07-21: Historical information-source unspecified SARS-CoV-2 (COVID-19) mRNA BNT-162b2 vax 10/02/2020 Recorded Comments : 2022-07-21: Historical information-source unspecified zoster vaccine, inactivated 06/19/2020 Recorded Comments : 2022-07-21: Historical information-source unspecified zoster vaccine, inactivated 02/14/2020 Recorded Comments : 2022-07-21: Historical information-source unspecified pneumococcal 13-valent vaccine 02/12/2020 Given influenza virus vaccine, inactivated 06/11/2019 Given influenza virus vaccine, inactivated 06/07/2018 Given influenza virus vaccine, inactivated 05/17/2016 Given pneumococcal 23-valent vaccine 06/30/2015 Given tetanus/diphtheria/pertuss, acel (Tdap) 05/27/2015 Given influenza virus vaccine, inactivated 05/27/2015 Given zoster vaccine live 06/17/2014 Given influenza virus vaccine, inactivated 06/17/2014 Given influenza virus vaccine, inactivated 03/27/2012 Given Recommendations Health Maintenance Pending(in the next year) OverDue Medicare Annual Wellness Visit due02/11/21and every 1year Adult Influenza Vaccine due01/27/23and every 1year Due Diabetic Eye Exam due10/19/23and every 366day Adult COVID-19 Vaccination due11/06/23Unknown Frequency Adult Social Determinants of Health Screening due11/06/23Unknown Frequency Falls Plan of Care due11/06/23Unknown Frequency Hepatitis C Screening due11/06/23One-time only Pneumococcal Vaccine Older Adults due11/06/23One-time only Due In Future Diabetes Management A1c not due until10/26/24and every 366day Satisfied(in the past 1 year) Satisfied Body Mass Index on10/13/23.Satisfied by KAREN Harmon Carli Diabetes Management A1c on10/26/23.Satisfied by ESTHELA Tena Gillian Diabetes Nephropathy Management on11/09/22.Satisfied by ESTHELA Tena, Shireen Electronic Signature on File Electronically Reviewed/Signed by: Bernadine Phillips DO Author Signature Dt/Tm:11/06/2023 05:17 PM Department of Family Medicine [facility] Patient Care team information Care Team Personnel Name: DO Damon Kristen M Position: Physician - Family Med Member Role: Primary Care Provider Address: Address: [address] [place] [id number] Care Team Related Persons Name: SHITAL CHRISTINE Address: home [address], [place] [id number] Name: ASHLEY OROURKE
[2023-12-04] MEDS: INSULIN ASPART PER UNIT CHARGE SC SCH (02:19)
[2023-12-04 06:45] LABS: Basophils # (auto) 0.02 K/uL (0.00-0.20); Basophils % (auto) 0.5 %; Hematocrit (blood only) 33.3 % (42.0-52.0); Hemoglobin 11.4 g/dl (14.0-18.0); Immature Granulocytes % (auto) 2.4 %; Lymphocytes # (auto) 0.78 K/uL (1.20-3.40); Lymphocytes % (auto) 19.1 %; Mean Corpuscular Hemoglobin 31.5 pg (25.0-34.0); Mean Corpuscular Hgb Conc 34.2 g/dL (32.0-36.0); Mean Platelet Volume 10.2 fL (9.4-12.4); Monocytes # (auto) 0.27 K/uL (0.11-0.59); Monocytes % (auto) 6.6 %; Neutrophils # (auto) 2.92 K/uL (1.40-6.50); Neutrophils % (auto) 71.4 %; Nucleated RBC # (auto) 0.05 K/uL (0.00-0.12); Nucleated RBC % (auto) 1.2 %; Platelet Count 191 K/uL (130-400); RDW Coefficient of Variation 15.9 % (11.5-14.5); RDW Standard Deviation 53.8 fL (36.4-46.3); Red Blood Count 3.62 M/uL (4.70-6.10); White Blood Count 4.09 K/ul (4.8-10.8)
[2023-12-04 06:56] LABS: BUN Creatinine Ratio 21.4 (10-20); Calcium 8.4 mg/dl (8.6-10.3); Creatinine Clr Calc Pharmacy 70.1 ml/min; Est GFR (African American) 90.2 ml/min; Est GFR (Non-African American) 77.8 ml/min
--- NOTE | 2023-12-04 07:12 | Hospitalist Progress Note ---
"Date of Service December 04, 2023 Assessment & Plan (1) Sepsis: (2) Pneumonia: (3) Hypomagnesemia: (4) Hypoxia: (5) Confusion: (6) Pulmonary embolus: (7) DVT (deep venous thrombosis): (8) Edema: (9) Cancer related pain: (10) Light chain myeloma: (11) Osteolytic lesion: (12) GE reflux: (13) Hypertension: (14) Obstructive sleep apnea: (15) Dyslipidemia: (16) Cellulitis of toe of left foot: Osvaldo Patiño is a 68 M with PMH of encephalopathy, DVT/PE, DKA, myeloma w/ osteolytic lesions, GERD, HTN, AZAR, and HLD who presents for fever. Sepsis | Presumed 2/2 Pulmonary Source Febrile, tachycardic and tachypneic on arrival with presumed pulmonary source. CXR showing pulmonary vacular congestion and congestion in the L lung base c/w pneumonia/aspiration pneumonitis vs atelectasis. Lactate 1.4, Procalcitonin 0.44, Urinalysis negative, Biofire negative, MRSA nares negative. Cultures NGTD x 48H Cefepime 2g q8h ongoing for PNA coverage, will transition to Cefdinir at this point Diabetes Patient hyperglycemic to 713 yesterday. Does seem that it may have been due to giving the wrong diet for dinner. Glycemic consult placed. Appreciate pharmacy input. Hypoxia New oxygen requirement on arrival. ABG largely unremarkable, no acidosis/alkalosis. Did trial 40 mg IV Lasix. Wean O2 as tolerated Confusion | AMS CT Head unremarkable. Patient alert and oriented since first day of admission. Likely multifactorial in relation to infection, hypoxia, and hypomagnesemia. Passed bedside swallow. Elevated Troponin No active chest pain or dyspnea. Troponin peaked at 64. EKG w/o acute ST or T wave abnormalities. Likely demand in the setting of acute infection Cellulitis Superficial cellulitis of L great toe. No appreciable purulence. Antibiotic coverage as above Electrolyte Abnormalities Monitored and repleted as indicated during hospital stay Chronic Conditions - Light Chain Myeloma/Osteolytic Lesions/Cancer Related Pain - continue home Dexamethasone 4 mg weekly with a double dose on days he gets an infusion and Gabapentin - GERD: Continue PPI - Dyslipidemia: Statin held - Edema: Cautious fluids given significant third spacing. Albumin provided as above. - DVT/PE: Continue Eliquis Diet: DM2, Heart Healthy (bedside swallow study passed) DVT: Eliquis 5mg BID home med. IVF: S/p 2.5L, no further IVF indicated at this time CODE; DNR/DNI Disp: Med/Tele Admission and Anticipated Discharge Date Admission Date: December 01, 2023 Supervising Physician Co-Signing Physician Notes I personally examined the patient and verified all wylie points of history and exam, discussed case, and agree with decision making with Dr Galindo feels good, breathing feels better. Would like to go home. Notes that he is walking around better. Vitals noted, in general he is awake and alert breathing unlabored no accessory muscle use good effort. Skin shows no rashes no pallor or icterus. Neuro without focal deficits. Sepsis d/t left lung pneumonia with hypoxia -received fluid resuscitation in the ED and IV Abx. Finish course of antibiotics, appears to be improving. Safe/stable in this regard Hypoxia in setting of pneumonia - -Continue O2 as needed -hypoxia likely also driven by underlying possible sleep apnea. -Consider outpatient sleep study weaknesshopefully will show progress with PT/OT, he would much prefer to go home. Right now it appears he would need rehab, fortunately he has shown good progress before, so we will follow into tomorrow. Elevated troponin-likely demand ischemia. Left toe cellulitis On antibiotics for pneumonia apixaban Subjective Patient seen at bedside this AM. Resting comfortably. No SOB or CP. Review of Systems 2 Review of Systems: As per HPI. Physical Exam 2 Physical Exam: Gen: NAD, pleasant, no acute distress HEENT: AT NC MMM Resp:Non labored on 2 L NC. CTAB minimal rhonchi heard. No increased work of breathing CV:RRR no m/r/g clinically well perfused Abd: Non-distended,normoactive bowels, Extr: 3+ upper and lower extremity pitting edema bilaterally Skin: Moderate erythema surrounding nail bed of left great toe Results & Data Results & Data Vital Signs (Past 12 Hours) Vital Signs Temp Pulse Pulse Resp BP Pulse Ox O2 Del Method 12/04/23 04:04 36.5 C 80 20 124/80 99 Nasal Cannula 12/04/23 00:54 12/03/23 22:58 36.4 C L 90 20 142/97 H 98 Nasal Cannula 12/03/23 22:15 Nasal Cannula 12/03/23 22:00 89 12/03/23 19:11 36.6 C 100 H 20 126/90 98 Nasal Cannula O2 Del Method O2 Flow Rate O2 Flow Rate 12/04/23 04:04 2 12/04/23 00:54 Nasal Cannula 2 12/03/23 22:58 2 12/03/23 22:15 2 12/03/23 22:00 12/03/23 19:11 2 Laboratory Results 12/04/23 05:49 12/04/23 05:49 Resident Activity Tracking Resident Involvement: Resident Care Provided Care Provided: Adult Hospital Medicine"
[2023-12-04] MEDS ORDERED: LANTUS PER UNIT CHARGE SC SCH ×2 (09:00)
[2023-12-04] MEDS: LANTUS PER UNIT CHARGE SC SCH (09:09)
[2023-12-04 10:37] LABS: Magnesium 1.7 mg/dl (1.7-2.4)
--- NOTE | 2023-12-04 13:44 | Pharmacy Report ---
Pharmacy Glycemic Short Note 2 - Date of Service December 04, 2023 - Glycemic Short BSG Results (Last 24 hours): 12/03/23 12/03/23 12/03/23 16:58 16:59 18:28 Glucose POC Glucose > 600 H* 576 H* > 600 H* 12/03/23 12/03/23 12/03/23 18:30 18:47 20:38 Glucose 713 H* POC Glucose > 600 H* 391 H* 12/04/23 12/04/23 12/04/23 01:54 05:49 08:07 Glucose 171 H POC Glucose 134 H 165 H 12/04/23 12/04/23 12/04/23 12:03 12:03 12:04 Glucose POC Glucose 393 H* 393 H* 390 H* OUTPATIENT ANTIDIABETIC REGIMEN: * Lantus 25 units BID, uncertain if he was taking this? * Novolog 15 units AC * A1c 12.2% from 12/02/23 ASSESSMENT: 12/03 * Haroon received 67 units of insulin yesterday (40 were basal, 10 units IV regular), reported outpatient insulin regimen signifcantly more than this (~95 units daily) * BSGs elevated yesterday evening, trended down nicely with additional Lantus and tightening of correction factor, fasting BSG this AM within goal range, continue yesterday's basal dosage evenly split. Elevations likely due to insufficient mealtime coverage and oral steroids. * He continues on dexamethasone 4mg PO daily and cefepime, will add overnight checks if BSGs remain elevated. * Lunchtime BSG elevated, carbohydrate coverage tightened, no indication to adjust correctional at this time. 12/02 * Pharmacy consulted for BSGs > 600mg/dL this evening. BSG and coverage missed 12/03/23 1200. * Pt ordered dexamethasone 4mg daily + cefepime 2gIV q8h. * My plan is based on a stress=2. PLAN FOR INPATIENT GLYCEMIC CONTROL: * Basal insulin * Lantus to 20 units SQ BID * Bolus insulin * NovoLog per scale ACHS or Q6hrs while NPO * Goal Range: Low 110 mg/dL - High 140 mg/dL * "Tightened" Correction Factor: 25 mg/dL/unit * "Tightened" Nutritional / Prandial insulin per carb ratio of 1 unit per 6 grams CHO consumed We will monitor closely.
[2023-12-04 15:54] VITALS: RESP 20
--- NOTE | 2023-12-04 18:12 | Billing Data ---
Date of Service December 04, 2023 Coding Level of Care Code 97378 SUB INP/OBS CARE
[2023-12-04] MEDS: CEFDINIR 300 MG CAP PO SCH (20:58)
[2023-12-05] MEDS: INSULIN ASPART PER UNIT CHARGE SC SCH (00:01)
[2023-12-05 04:38] VITALS: O2SAT 99
[2023-12-05 06:40] LABS: Basophils # (auto) 0.03 K/uL (0.00-0.20); Basophils % (auto) 0.6 %; Hematocrit (blood only) 36.2 % (42.0-52.0); Hemoglobin 11.9 g/dl (14.0-18.0); Immature Granulocytes # (auto) 0.23 K/uL (0.01-0.20); Immature Granulocytes % (auto) 4.5 %; Lymphocytes # (auto) 1.09 K/uL (1.20-3.40); Lymphocytes % (auto) 21.1 %; Mean Corpuscular Hemoglobin 31.2 pg (25.0-34.0); Mean Corpuscular Hgb Conc 32.9 g/dL (32.0-36.0); Mean Platelet Volume 9.8 fL (9.4-12.4); Monocytes # (auto) 0.38 K/uL (0.11-0.59); Monocytes % (auto) 7.4 %; Neutrophils # (auto) 3.43 K/uL (1.40-6.50); Neutrophils % (auto) 66.4 %; Nucleated RBC # (auto) 0.04 K/uL (0.00-0.12); Nucleated RBC % (auto) 0.8 %; Platelet Count 201 K/uL (130-400); RDW Coefficient of Variation 16.2 % (11.5-14.5); RDW Standard Deviation 55.8 fL (36.4-46.3); Red Blood Count 3.81 M/uL (4.70-6.10); White Blood Count 5.16 K/ul (4.8-10.8)
[2023-12-05 06:55] LABS: BUN Creatinine Ratio 26.1 (10-20); Calcium 8.8 mg/dl (8.6-10.3); Creatinine Clr Calc Pharmacy 61.9 ml/min; Est GFR (African American) 77.6 ml/min; Est GFR (Non-African American) 66.9 ml/min; Potassium 4.1 mmol/L (3.5-5.1)
[2023-12-05 07:38] VITALS: BP 155/91; TEMP 97.3
--- NOTE | 2023-12-05 12:41 | Discharge Summary ---
Date of Service December 05, 2023 Admission HPI Per Admitting Provider Haroon is a 68 M with PMH of encephalopathy, DVT/PE, DKA, myeloma w/ osteolytic lesions, GERD, HTN, AZAR, and HLD who presents for fever. Justino was brought into the hospital by a friend who went over to his home to check on him and found him unwell/confused in his bed. Patient evaluated independently at bedside, he notes that he was brought to the hospital because of pain in his left great toe which has been there for 3 weeks. He denies chest pain, dyspnea, or cough. Patient notes that he has continued to urinate and move his bowels well. He notes that he eats well at home. Patient is undergoing cancer treat ments and also follows with palliative medicine. Patient notes that he does not use oxygen at home. He notes that he has good pain control and does not often require pain management. History limited by patient's dyspnea. Admission Exam Per Admitting Provider Gen: NAD, pleasant, speaks in short sentences, coughing sporadically HEENT: Supple, no LAD, no thyromegaly, notable facial edema Resp:Labored, rhonchi in LLL, otherwise clear to auscultation CV:tachycardic, regular rhythm, normal S1/S2, no M/R/G Abd: Soft, distended, no TTP, normoactive bowels, no masses Extr: 2+ dp bilaterally, 3+ upper and lower extremity pitting edema bilaterally Skin: Moderate erythema surrounding nail bed of left great toe Principal Diagnosis pneumonia Discharge Exam Gen: NAD, pleasant, no acute distress HEENT: AT NC MMM Resp:Breathing comfortably on room air. CTAB minimal rhonchi heard. No increased work of breathing CV:RRR no m/r/g clinically well perfused Abd: Non-distended,normoactive bowels, Extr:2- 3+ upper and lower extremity pitting edema bilaterally Skin: no rashes or bruising noted Discharge Data Allergies Allergy/AdvReac Type Severity Reaction Status Date / Time amoxicillin [From Augmentin] Allergy Intermediate SWELLING Verified 12/02/23 0 1:39 AROUND EYES clavulanic acid Allergy Intermediate SWELLING Verified 12/02/23 01:39 AROUND THE EYES Penicillins Allergy Intermediate AUGMENTIN Verified 12/02/23 01:39 - SWELLING AROUND THE EYES diflunisal AdvReac Intermediate VOMITING Verified 12/02/23 01:39 valsartan [From Diovan] AdvReac Intermediate Vomiting Verified 12/02/23 01:39 Consultations 12/01/23 23:05 ED Decision to Admit Stat Ordered Studies Chest X-Ray 12/01/23 20:48 FINDINGS: An AP, portable, upright chest radiograph is compared to study dated 08/31/2023 and correlated with chest CT dated 08/21/2023. The heart is top normal for projection noting atherosclerotic calcification of the thoracic aorta. There is pulmonary vascular congestion. Airspace opacities are noted at the left lung base. No large pleural effusion or pneumothorax is seen. The skeletal structures are osteopenic. There are chronic/healed bilateral rib fractures. IMPRESSION: 1. Pulmonary vascular congestion. 2. Airspace opacities at the left lung base could represent atelectasis versus p neumonia/aspiration pneumonitis. Clinical correlation will be required and radiographic follow-up to resolution is recommended Head CT 12/01/23 20:48 FINDINGS: Brain parenchyma: There is age-related involutional change noting minimal microangiopathic disease. There is no hemorrhage, mass effect, or evidence of acute territorial ischemia by CT criteria. [place]-white matter differentiation is preserved. No extra-axial fluid collection is seen. Ventricles, sulci, cisterns: Prominent secondary to involutional change. Intracranial vasculature: There is atherosclerotic calcification of the cavernous carotid and vertebral arteries. Calvarium: Unremarkable. Sinuses and mastoids: The visualized paranasal sinuses are clear. The mastoid air cells are well pneumatized. Orbits: The bony orbits are grossly intact. IMPRESSION: There is no hemorrhage, mass effect, or evidence of acute territorial ischemia by CT criteria. 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 Sepsis | Presumed 2/2 Pulmonary Source Febrile, tachycardic and tachypneic on arrival with presumed pulmonary source. CXR showing pulmonary vacular congestion and congestion in the L lung base c/w pneumonia/aspiration pneumonitis vs atelectasis. Lactate 1.4, Procalcitonin 0.44, Urinalysis negative, Biofire negative, MRSA nares negative. Cultures NGTD x 48H. Cefepime started 12/01, transitioned to cefdinir 12/03. With severity of illness would continue with 10 days total of antibiotic therapy. f/u with PCP. Diabetes Patient hyperglycemic to 713 yesterday. Does seem that it may have been due to giving the wrong diet for dinner. Glycemic consult placed. Appreciate pharmacy input. Resume home regimen on discharge. Follow up with endocrinology on an outpatient basis. Hypoxia New oxygen requirement on arrival. ABG largely unremarkable, no acidosis/alkalosis. Did trial 40 mg IV Lasix. Oxygen requirement resolved. Confusion | AMS CT Head unremarkable. Patient alert and oriented since first day of admission. Likely multifactorial in relation to infection, hypoxia, and hypomagnesemia. Passed bedside swallow. Elevated Troponin No active chest pain or dyspnea. Troponin peaked at 64. EKG w/o acute ST or T wave abnormalities. Likely demand in the setting of acute infection Cellulitis Superficial cellulitis of L great toe. No appreciable purulence. Antibiotic coverage as above Electrolyte Abnormalities Monitored and repleted as indicated during hospital stay Chronic Conditions - Light Chain Myeloma/Osteolytic Lesions/Cancer Related Pain - continue home Dexamethasone 4 mg weekly with a double dose on days he gets an infusion and Gabapentin - GERD: Continue PPI - Dyslipidemia: Statin held, resume on discharge - Edema: Cautious fluids given significant third spacing. Albumin provided as above. - DVT/PE: Continue Eliquis Diet: DM2, Heart Healthy (bedside swallow study passed) DVT: Eliquis 5mg BID home med. IVF: S/p 2.5L, no further IVF indicated at this time CODE; DNR/DNI Disp: Med/Tele Total Time Total Time Spent Total Time Spent (In Minutes): <30 Discharge Plan Discharge Items Patient Disposition: Home - Home Health Services Reason For Visit: SEPSIS, PNEUMONIA Discharge Diagnosis: pneumonia Activity: Per Instructions section Non-emergency contact: Primary Care Provider Call non-emergency contact if: you have any medication questions and your symptoms worsen Follow-up/Referrals: Maria Ines Damon DO [Primary Care Provider] - 12/06/23 1:25 pm Diet: Carb Consistent or DM2 Addtl Attending Provider Instructions: You were seen in the hospital for pneumonia. You were treated with antibiotics and oxygen. You improved and were no longer requiring oxygen. We will continue t he antibiotics for 10 days total. Take the medication every twelve hours. Take the entire course of antibiotics. It is important that you follow up with your primary care provider in the next week or so Pending Studies at Discharge: No Stand-Alone Forms: [facility] Sm[facility] Cess[facility] Medications and DC Order Prescriptions: New cefdinir 300 mg Capsule 300 mg PO Q12 Qty: 14 0RF Continued polyethylene glycol 3350 [Miralax] 17 gram powder in packet 17 g PO DAILY PRN (Reason: Constipation) (DME) Accu-Chek Josephine Plus test strp Strip See Rx Instructions .ROUTE .MEDSUPPLY Qty: 100 3RF Rx Instructions: checking TID multivitamin [Multiple Vitamins] Tablet 1 tab PO DAILY (DME) pen needle, diabetic [BD Ultra-Fine Augustina Pen Needle] 32 gauge x 5/32" needle See Rx Instructions .ROUTE .MEDSUPPLY Qty: 100 3RF Rx Instructions: Use to inject once daily atorvastatin [Lipitor] 40 mg tablet 40 mg PO HS cholecalciferol (vitamin D3) 25 mcg (1,000 unit) tablet 1,000 units PO DAILY pantoprazole 40 mg Tablet,Delayed Release (Dr/Ec) 40 mg PO QAM Qty: 60 0RF metformin 500 mg tablet 500 mg PO QAM metformin 500 mg tablet 1,000 mg PO QPM acyclovir 400 mg tablet 400 mg PO BID dexamethasone 4 mg tablet 4 mg PO Q7D Rx Instructions: Take on wednesdays, take an extra dose on day of infusion. Eliquis 5 mg Tablet 5 mg PO BID Qty: 64 0RF Rx Instructions: take 2 tablets twice a day for 2 days followed by 1 tablet twice a day ongoing. metoprolol succinate 25 mg tablet extended release 24 hr 25 mg PO PM Qty: 30 0RF lisinopril 2.5 mg tablet 2.5 mg PO PM Qty: 30 0RF (DME) pen needle, diabetic 29 gauge needle See Rx Instructions .Route Qty: 100 0RF Rx Instructions: As directed gabapentin 300 mg capsule 300 mg PO AMPM diclofenac sodium 75 mg tablet,delayed release (DR/EC) 75 mg PO BID PRN (Reason: .Arthritis) insulin glargine [Lantus U-100 Insulin] 100 unit/mL solution 25 unit SC AMPM insulin aspart U-100 [Novolog FlexPen U-100 Insulin] 100 unit/mL (3 mL) insulin pen 15 unit subcut TIDM Rx Instructions: Take 15 units before breakfast, lunch and dinner Discharge Orders: Discharge Order (Routine); Ordered 12/05/23 Ordered By: Annetta Garcia/Other Patient Handouts: High Blood Sugar (Hyperglycemia), Managing Type 2 Diabetes Admission Data Admit Date/Time: 12/01/23 23:58 Attending Provider: Lloyd Fregoso Admit Provider: Treva Aden Primary Care Provider: Maria Ines Damon Other Providers: Kunal Dorman; [facility] Other Interventions: Discharge Summary Assessment (RN) Last Done: 12/05/23 13:02 Supervising Physician Co-Signing Physician Notes I personally examined the patient and verified all wylie points of history and exam, discussed case, and agree with decision making with Dr Galindo feels good, breathing feels better. Would like to go home. Discussed with nursing he is walking well, but patient smirked and implied that he wanted to show offand then proceeded to walk a loop around the entire unit talking to me the whole time. Vitals noted, in general he is awake and alert breathing unlabored no accessory muscle use good effort. Skin shows no rashes no pallor or icterus. Neuro without focal deficits. Steady gait with a walker and no conversational dyspnea despite probably 200 feet ambulated Sepsis d/t left lung pneumonia with hypoxia -received fluid resuscitation in the ED and IV Abx. Finish course of antibiotics PO, appears to be improving. Safe/stable in this regard Hypoxia in setting of pneumonia - - walked a long distance on room air without any noticeable dyspneathis appears to have resolved weakness improved, safe/stable for home Metabolic encephalopathy present on admissionresolved. Elevated troponin-likely demand ischemia. Left toe cellulitis On antibiotics for pneumonia, which should suffice for this as well apixaban Resident Activity Tracking Resident Involvement: Resident Care Provided Care Provided: Adult [facility]
[2023-12-05 13:03] VITALS: PULSE 101
--- NOTE | 2023-12-05 19:55 | Billing Data ---
Date of Service December 05, 2023 Coding Level of Care Code 97781 IN/OBS DISCH 30 MIN/LESS
== END 2023-12-05 14:12 | disposition home health service (06) | DRG 871 ==
LOC: ED 20:41 → SUATTDRO 23:58 → EDINP 23:58 → 2W 12-02 16:30
DX: E78.5 Hyperlipidemia, unspecified; Z88.8 Allergy status to other drugs, medicaments and biological substances; J18.9 Pneumonia, unspecified organism; C90.00 Multiple myeloma not having achieved remission; I10 Essential (primary) hypertension; Z79.4 Long term (current) use of insulin; J69.0 Pneumonitis due to inhalation of food and vomit; Z79.84 Long term (current) use of oral hypoglycemic drugs; I24.89 Other forms of acute ischemic heart disease; E83.42 Hypomagnesemia; Z79.899 Other long term (current) drug therapy; R09.02 Hypoxemia; Z66 Do not resuscitate; Z86.718 Personal history of other venous thrombosis and embolism; Z88.0 Allergy status to penicillin; G89.3 Neoplasm related pain (acute) (chronic); G47.33 Obstructive sleep apnea (adult) (pediatric); A41.9 Sepsis, unspecified organism; Z11.52 Encounter for screening for COVID-19; L03.116 Cellulitis of left lower limb; M89.9 Disorder of bone, unspecified; Z86.711 Personal history of pulmonary embolism; E11.65 Type 2 diabetes mellitus with hyperglycemia; K21.9 Gastro-esophageal reflux disease without esophagitis; G93.41 Metabolic encephalopathy

== ENCOUNTER 2024-09-26 14:02 | Observation (INO) ==
[2024-09-26 15:46] LABS: Basophils # (auto) 0.01 K/uL (0.00-0.20); Basophils % (auto) 0.3 %; Eosinophils # (auto) 0.01 K/uL (0.00-0.50); Eosinophils % (auto) 0.3 %; Hematocrit (blood only) 30.9 % (42.0-52.0); Hemoglobin 10.1 g/dl (14.0-18.0); Immature Granulocytes # (auto) 0.03 K/uL (0.01-0.20); Immature Granulocytes % (auto) 0.8 %; Lymphocytes # (auto) 0.65 K/uL (1.20-3.40); Lymphocytes % (auto) 18.3 %; Mean Corpuscular Hemoglobin 28.6 pg (25.0-34.0); Mean Corpuscular Hgb Conc 32.7 g/dL (32.0-36.0); Mean Corpuscular Volume 87.5 fL (80.0-100.0); Mean Platelet Volume 11.4 fL (9.4-12.4); Monocytes # (auto) 0.12 K/uL (0.11-0.59); Monocytes % (auto) 3.4 %; Neutrophils # (auto) 2.74 K/uL (1.40-6.50); Neutrophils % (auto) 76.9 %; Platelet Count 95 K/uL (130-400); RDW Coefficient of Variation 18.3 % (11.5-14.5); RDW Standard Deviation 58.3 fL (36.4-46.3); Red Blood Count 3.53 M/uL (4.70-6.10); White Blood Count 3.56 K/ul (4.8-10.8)
--- NOTE | 2024-09-26 15:46 | Emergency Department Note ---
Impression & Plan YOSI (acute kidney injury), Anemia, Acute confusion ED Provider Note NAME: LENNY CHRISTINE AGE: 69 SEX: M : 1955 ARRIVES VIA: Walk-In INFORMANT: Patient ED PROVIDER(S): Lloyd Pickard DO CHIEF COMPLAINT: Sent in to be transferred to [place] HPI: Patient is a 69-year-old male with a past medical history of sepsis, pneumonia, hypokalemia, hyponatremia sent in by Dr. Moses from [facility] hematology/oncology. He notes that he has multiple myeloma and is progressing quickly. He requested to come to the ER so he can be transferred to [facility] for aggressive treatment including chemo. Friend is present at bedside and provides additional history and notes that he has been a little bit more confused over the past several weeks. Patient denies any headache or change in vision. No chest pain or shortness of breath. No nausea, vomiting, or diarrhea. ADDITIONAL HISTORY OBTAINED: Per HPI Chronic Medical/Social Conditions Affecting Care: Per HPI PAST MEDICAL HISTORY:See Below PAST SURGICAL HISTORY:See Below FAMILY HISTORY:See Below SOCIAL HISTORY:See Below HOME MEDICATIONS:See Below ALLERGIES:See Below VITALS:See Below PHYSICAL EXAMINATION: GENERAL: Sitting up in bed, alert, chronically ill-appearing, disheveled EYE EXAM: normal conjunctiva. PERRL and EOM's grossly intact. OROPHARYNX: Dry mucous membranes NECK: supple, no nuchal rigidity, no adenopathy, non-tender LUNGS: Clear to auscultation. Normal chest wall mechanics HEART: no murmurs, S1 normal and S2 normal ABDOMEN: abdomen soft, non-tender, normo-active bowel sounds, no masses, no rebound or guarding. UPPER EXTREMITIES: upper extremities are grossly normal. LOWER EXTREMITIES: No pitting edema. NEURO EXAM: Awake alert oriented to person and place as well as year, cranial nerves II-XII grossly intact, normal speech, no gross weakness of arms, no gross weakness of legs. MEDICAL DECISION MAKING: Patient is a 75-year-old male who presents to the ER brought in from the cancer care clinic by Dr. Moses. He notes that he needs to be transferred to [facility] for for possible chemo for acute worsening of his multiple myeloma. IV was established and blood work was obtained. Labs were consistent with severe YOSI with a creatinine of 5 up from baseline of 1. BMP shows mild hypokalemia 3.5. Mild anemia 10. Platelets at 95. Bicarb is slightly low at 20. LFTs and bilirubin were unremarkable. UA was clean. He was still making urine. He was given 2 L bolus. Gates was placed. I discussed case with [place] hematology oncology. Patient was accepted in transfer. Due to the high volume of transfers patient will not be transferred to [facility] in the morning. I consequently discussed case with the hospitalist Dr. Kunal Dorman for further evaluation management and treatment here. I did notify on-call full decator operator oncologist the patient will be staying overnight. They were aware. I did recommend adding on a uric acid which was done. The hospitalist recommended a CT of the chest and belly which was also obtained but not read. Patient was updated at bedside. Currently a full code. Discussed case with the hospitalist and patient will be admitted to [facility] until able to be transferred tomorrow. Consults/Care Managements Discussions: Per MDM Triage Nursing notes reviewed. Limited review of prior medical records performed Vital Signs: reviewed and remarkable for HTN Differential diagnosis: Infection, dehydration, metabolic abnormality, hypo/hyperglycemia, electrolyte disturbance, anemia, hypoxia, cardiac sources, intracerebral event, toxicologic, neurologic, as well as other pathologies. ER treatment provided: See below Diagnostics interpreted by me include EKG and cardiac monitoring as listed below: -Cardiac Monitoring: An order was placed for continuous cardiac monitoring. The monitor shows a rate of 70 with sinus rhythm. -ECG: Sinus rhythm rate of 70 Normal axis No PVCs QTc 432 -Laboratory studies:Interpreted by me as stated above in MDM and shown below. Imaging studies: Xrays: As interpreted by me: Portable AP upright 1 view of the chest shows right upper lobe opacity CTs show: CT of the head was negative per radiology CT of the chest and abdomen pelvis was pending upon admission to the hospitalist Procedures:none Critical Care: None Past Med/Surg History Problem List (Updated 09/26/24 @ 20:17 by Lloyd Pickard DO) Acute confusion (Acute) Anemia (Acute) YOSI (acute kidney injury) (Acute) Dental infection (Acute) Hip bursitis, left Cellulitis of toe of left foot Pneumonia Sepsis Hypomagnesemia (Acute) Hypoxia (Acute) Confusion Hypophosphatemia Hypocalcemia Shock Volume depletion Elevated troponin Palliative care by specialist Encephalopathy Metabolic acidosis Self-care deficit Hypothermia (Acute) YOSI (acute kidney injury) (Acute) Acute hyponatremia (Acute) Elevated troponin I level (Acute) AMS (altered mental status) (Acute) DKA (diabetic ketoacidosis) (Acute) Pulmonary embolus DVT (deep venous thrombosis) Low back pain Normal left ventricular systolic function and wall motion Normal stress echocardiogram Left anterior fascicular block Hypomagnesemia Edema Pathological compression fracture of spine Edema Weakness generalized Cancer related pain Advanced care planning/counseling discussion Palliative care encounter Pain Fall (Acute) Light chain myeloma (Chronic) Osteolytic lesion (Acute) Lytic lesion of bone on x-ray (Acute) Closed compression fracture of L1 vertebra (Acute) SOB (shortness of breath) on exertion Antiplatelet or antithrombotic long-term use GE reflux Hypertension Obstructive sleep apnea Dyslipidemia Medical History (Updated 09/26/24 @ 20:17 by Lloyd Pickard DO) Poor historian upon questioning pt regarding health hx for PAT assessment he stated he never had a PE before and only had a DVT--?? per CT 02/09/23 pt had PE ?? Dyslipidemia Hypertension History of cellulitis History of pulmonary embolus (PE) (02/09/23) per CT 02/09/23--however pt denies having a PE?? History of chemotherapy currently receiving for multiple myeloma Multiple myeloma receiving chemo currently--diagnosed 2020? History of DVT (deep vein thrombosis) 11/2022--on eliquis bid On anticoagulant therapy eliquis bid Dental infection current issue--on clindamycin Sleep apnea cpap Metabolic encephalopathy Elevated troponin level Hypercalcemia Acute renal failure hx Acute back pain hx Fatigue Gout Vitamin D deficiency Type 2 diabetes mellitus IDDM Tendon laceration hx--repaired Laceration of multiple sites of left hand and fingers Chest pain hx--pt denies any currently Bronchitis hx Surgical History (Updated 09/19/24 @ 12:43 by Charo Burk, ESTHELA) History of colonoscopy History of tooth extraction History of surgery on arm Family History (Updated 09/19/24 @ 12:45 by Charo Burk, ESTHELA) Father Dyslipidemia Alzheimer disease Mother Diabetes Coronary heart disease Other Family history non-contributory No family history of adverse response to anesthesia Social History Smoking Status: Never smoker Second Hand Exposure: No; Do You Dip or Chew Tobacco: No; Hx Alcohol Use: No Hx Substance Use: No Preferred Language: Mongolian Communication Ability: Effective Case Management Social Worker Required: No Beliefs That Will Affect Care: None marital status: Single marital status details: no children Current Living Situation: Alone Current Living Situation Comment: lives with mother current occupational status: retired Feels Safe at Home: Yes Assistive Devices: CPAP Allergies Allergies Allergy/AdvReac Type Severity Reaction Status Date / Time amoxicillin [From Augmentin] Allergy Intermediate SWELLING Verified 09/19/24 12:27 AROUND EYES clavulanic acid Allergy Intermediate SWELLING Verified 09/19/24 12:27 AROUND THE EYES Penicillins Allergy Intermediate AUGMENTIN Verified 09/19/24 12:27 - SWELLING AROUND THE EYES diflunisal AdvReac Intermediate VOMITING Verified 09/19/24 12:27 valsartan [From Diovan] AdvReac Intermediate Vomiting Verified 09/19/24 12:27 Home Meds Home Medications Medication Instructions Recorded Confirmed atorvastatin 40 mg tablet (Lipitor) 40 mg PO HS 08/09/19 09/19/24 multivitamin (Multiple Vitamins 1 tab PO QAM 01/27/20 09/19/24 tablet) polyethylene glycol 3350 17 gram 17 g PO DAILY PRN Constipation 11/22/22 09/19/24 oral powder packet (Miralax) acyclovir 400 mg tablet 400 mg PO BID 08/21/23 09/19/24 metformin 500 mg tablet 1,000 mg PO QPM 08/21/23 09/19/24 metformin 500 mg tablet 500 mg PO QAM 08/21/23 09/19/24 diclofenac sodium 75 mg 75 mg PO BID PRN .Arthritis 12/02/23 09/19/24 tablet,delayed release gabapentin 300 mg capsule 300 mg PO AMPM 12/02/23 09/19/24 calcium citrate 400 mg PO QAM 07/01/24 09/19/24 cholecalciferol (vitamin D3) 50 50 mcg PO QAM 07/01/24 09/19/24 mcg (2,000 unit) capsule dexamethasone 4 mg tablet 8 mg PO Q4WK 07/01/24 09/19/24 insulin aspart U-100 100 unit/mL 18 unit subcut TIDM 07/01/24 09/19/24 (3 mL) subcutaneous pen (Novolog FlexPen U-100 Insulin aspart) insulin glargine 100 unit/mL 30 unit SC AMPM 07/01/24 09/19/24 subcutaneous solution (Lantus U-100 Insulin) Previous Rx's Medication Instructions Recorded blood sugar diagnostic (Accu-Chek #100 ea 05/23/22 Josephine Plus test strips) pantoprazole 40 mg tablet,delayed 40 mg PO QAM #60 tabs 08/24/22 release pen needle, diabetic 32 gauge x #100 ea 11/14/22" (BD Ultra-Fine Augustina Pen Needle) apixaban 5 mg tablet (Eliquis) 5 mg PO BID #64 tabs 08/28/23 lisinopril 2.5 mg tablet 2.5 mg PO PM #30 tabs 08/28/23 metoprolol succinate 25 mg 25 mg PO PM #30 tabs 08/28/23 tablet,extended release 24 hr pen needle, diabetic 29 gauge #100 ea 09/02/23 oxycodone 5 mg tablet 5 mg PO Q4H PRN pain #15 tabs 09/14/24 Results & Data (ED) Vital Signs Vital Signs - 24 hr 09/26/24 14:02 09/26/24 15:19 09/26/24 16:12 Temperature 36.7 C 36.8 C Temperature Source Temporal Artery Scan Oral Pulse Rate 77 76 Pulse Rate [Apical] 81 Pulse Rhythm [Apical] Regular Pulse Strength [Apical] Normal Respiratory Rate 20 20 Respiratory Effort / Characteristics Non-Labored Spontaneous Non-Labored Spontaneous Respiratory Depth Normal Normal Respiratory Pattern Regular Blood Pressure 187/76 H Blood Pressure [Right Arm] 167/83 H Blood Pressure Mean 113 Blood Pressure Mean [Right Arm] 111 Blood Pressure Position Sitting Blood Pressure Position [Right Arm] Semi-fowlers Pulse Oximetry 99 96 Oxygen Delivery Method Room Air Room Air Sepsis Recent Fever Within 48 Hours No Sepsis New/Unexplained Change in Mental Status N/A Sepsis Action Taken by Nursing No Action Required 09/26/24 18:00 09/26/24 19:28 09/26/24 19:29 Temperature 36.8 C Temperature Source Oral Pulse Rate 92 H Pulse Rate [Apical] 99 H 90 Pulse Rhythm [Apical] Regular Pulse Strength [Apical] Normal Respiratory Rate 20 18 Respiratory Effort / Characteristics Non-Labored Spontaneous Respiratory Depth Normal Respiratory Pattern Regular Blood Pressure Blood Pressure [Right Arm] 166/93 H 176/96 H Blood Pressure Mean Blood Pressure Mean [Right Arm] 117 122 Blood Pressure Position Blood Pressure Position [Right Arm] Semi-fowlers Pulse Oximetry 96 98 Oxygen Delivery Method Room Air Room Air Sepsis Recent Fever Within 48 Hours Sepsis New/Unexplained Change in Mental Status Sepsis Action Taken by Nursing 09/26/24 20:02 Temperature Temperature Source Pulse Rate Pulse Rate [Apical] 92 H Pulse Rhythm [Apical] Pulse Strength [Apical] Respiratory Rate 18 Respiratory Effort / Characteristics Respiratory Depth Respiratory Pattern Blood Pressure Blood Pressure [Right Arm] 170/88 H Blood Pressure Mean Blood Pressure Mean [Right Arm] 115 Blood Pressure Position Blood Pressure Position [Right Arm] Pulse Oximetry 97 Oxygen Delivery Method Room Air Sepsis Recent Fever Within 48 Hours Sepsis New/Unexplained Change in Mental Status Sepsis Action Taken by Nursing Laboratory Data 09/26/24 15:28 09/26/24 15:28 Lab Results 09/26/24 09/26/24 Range/Units 15:28 16:36 WBC 3.56 L (4.8-10.8) K/ul RBC 3.53 L (4.70-6.10) M/uL Hgb 10.1 L (14.0-18.0) g/dl Hct 30.9 L (42.0-52.0) % MCV 87.5 (80.0-100.0) fL MCH 28.6 (25.0-34.0) pg MCHC 32.7 (32.0-36.0) g/dL RDW Std Deviation 58.3 H (36.4-46.3) fL RDW Coeff of Jose Juan 18.3 H (11.5-14.5) % Plt Count 95 L (130-400) K/uL MPV 11.4 (9.4-12.4) fL Immature Gran % (Auto) 0.8 % Neut % (Auto) 76.9 % Lymph % (Auto) 18.3 % [place] % (Auto) 3.4 % Eos % (Auto) 0.3 % Baso % (Auto) 0.3 % Neut # (Auto) 2.74 (1.40-6.50) K/uL Lymph # (Auto) 0.65 L (1.20-3.40) K/uL [place] # (Auto) 0.12 (0.11-0.59) K/uL Eos # (Auto) 0.01 (0.00-0.50) K/uL Baso # (Auto) 0.01 (0.00-0.20) K/uL Immature Gran # (Auto) 0.03 (0.01-0.20) K/uL Sodium 138 (136-145) mmol/L Potassium 4.9 (3.5-5.1) mmol/L Chloride 108 H (98-107) mmol/L Carbon Dioxide 20 L (21-32) mmol/L Anion Gap 10 (3-11) BUN 69 H (6-23) mg/dl Creatinine 5.32 H* (0.6-1.4) mg/dl Est Cr Clr Drug Dosing Not Reportable eGFR 10.83 BUN/Creatinine Ratio 13.0 (10-20) Glucose 238 H (70-99(Fasting)) mg/dl Uric Acid 14.8 H (2.6-7.2) mg/dl Calcium 8.5 L (8.6-10.3) mg/dl Total Bilirubin 0.6 (0.2-1.0) mg/dl AST 13 (13-39) U/L ALT 14 (7-52) U/L Alkaline Phosphatase 100 (34-104) U/L Total Creatine Kinase 32 (30-223) U/L Total Protein 6.8 (6.0-8.3) gm/dl Albumin 4.1 (3.4-5.0) gm/dl Globulin 2.7 (2.5-4.0) gm/dl Albumin/Globulin Ratio 1.5 (0.9-2) Urine Color Yellow Urine Appearance Clear (Clear) Urine pH 6.0 (4.5-7.5) Ur Specific [place] 1.013 (1.000-1.030) Urine Protein 2+ H (Negative) Urine Glucose (UA) Negative (Negative) Urine Ketones Negative (Negative) Urine Blood Negative (Negative) Urine Nitrite Negative (Negative) Urine Bilirubin Negative (Negative) Urine Urobilinogen Negative (Negative) Ur Leukocyte Esterase Negative (Negative) Urine WBC (Auto) 0-5 (0-5) /hpf Urine RBC (Auto) 0-2 (0-2) /hpf U Hyaline Cast (Auto) 0-2 (0-2) /lpf U Epithel Cells (Auto) 0-2 (0-2) /hpf Urine Bacteria (Auto) None Seen (None Seen) Administered Medications Discontinued Medications Sodium Chloride (Nss) 1,000 mls @ 999 mls/hr IV .Q1H1M TOMA Stop: 09/26/24 18:15 Last Infusion: 09/26/24 18:32 Dose: Infused Documented By: Admin: 09/26/24 17:27 Dose: 999 mls/hr Documented By: Infusion: 09/26/24 17:27 Dose: Infused Documented By: Admin: 09/26/24 16:33 Dose: 999 mls/hr Documented By: DEMETRIO Imaging Data Radiologist's Impression: Head CT 09/26/24 15:51 Clinical History: Altered mental status Technique: Axial computed tomography images were obtained of the brain without intravenous contrast. Comparison is made to the prior CT dated 06/22/2024 Findings: There is unchanged cerebral atrophy, within expected limits for the patient's age. Areas of decreased attenuation are seen within the periventricular white matter, likely representing chronic small vessel ischemic disease. There is no definite sign of acute or old infarction. No intracranial hemorrhage is evident. No definite mass lesion is seen on this noncontrast examination. There is no midline shift or other form of herniation. No hydrocephalus is seen. No fracture is identified. The orbits and the visualized paranasal sinuses appear unremarkable. The mastoid air cells appear clear. Impression: 1. Cerebral atrophy and chronic small vessel ischemic disease 2. Otherwise unremarkable noncontrast CT of the brain Electronically signed by Ismael Solano 09-26-2024 4:30 PM Chest X-Ray 09/26/24 16:13 EXAM: Radiograph of the Chest 1 View INDICATION: Weakness TECHNIQUE: Frontal view of the chest. COMPARISON: 01/18/2024 and PET/CT 07/10/2024 FINDINGS: Lungs and pleural spaces: No consolidation or pulmonary edema. No pleural effusion or pneumothorax. Heart: Shape and configuration within normal limits allowing for technique. Mediastinum: Normal contour. Bones/joints: Stable sclerotic change of the proximal right clavicle. Old left rib fracture. No acute osseous destruction. Soft tissues: Increasing soft tissue density projecting over the medial right upper lung which may correlate to the known chest wall mass. Upper abdomen: No abnormality noted. IMPRESSION: Increasing soft tissue density projecting over the medial right upper lung which may correlate to the known chest wall mass. Conceivably, a right upper lobe pulmonary infiltrate could have this appearance but is thought less likely. ACT 112: Negative or not required by law. Electronically signed by Fernanda Pressley 09-26-2024 5:31 PM Discharge Plan Visit Data Chief Complaint: Referred by Doctor Stated Complaint: REF BY ONCOLOGIST ED Provider: Lloyd Pickard Discharge Problem: YOSI (acute kidney injury), Anemia, Acute confusion Forms Stand Alone Forms: My [facility] [employer] Prescriptions Prescriptions: No Action polyethylene glycol 3350 [Miralax] 17 gram powder in packet 17 g PO DAILY PRN (Reason: Constipation) (DME) Accu-Chek Josephine Plus test strp Strip See Rx Instructions .ROUTE .MEDSUPPLY Qty: 100 3RF Rx Instructions: checking TID multivitamin [Multiple Vitamins] Tablet 1 tab PO QAM (DME) pen needle, diabetic [BD Ultra-Fine Augustina Pen Needle] 32 gauge x 5/32" needle See Rx Instructions .ROUTE .MEDSUPPLY Qty: 100 3RF Rx Instructions: Use to inject once daily atorvastatin [Lipitor] 40 mg tablet 40 mg PO HS dexamethasone 4 mg tablet 8 mg PO Q4WK Rx Instructions: Take on wednesdays, take an extra dose on day of infusion. insulin aspart U-100 [Novolog FlexPen U-100 Insulin] 100 unit/mL (3 mL) insulin pen 18 unit subcut TIDM Rx Instructions: Take 15 units before breakfast, lunch and dinner insulin glargine [Lantus U-100 Insulin] 100 unit/mL solution 30 unit SC AMPM calcium citrate 200 mg (950 mg) tablet 400 mg PO QAM cholecalciferol (vitamin D3) 50 mcg (2,000 unit) capsule 50 mcg PO QAM pantoprazole 40 mg Tablet,Delayed Release (Dr/Ec) 40 mg PO QAM Qty: 60 0RF metformin 500 mg tablet 500 mg PO QAM metformin 500 mg tablet 1,000 mg PO QPM acyclovir 400 mg tablet 400 mg PO BID Eliquis 5 mg Tablet 5 mg PO BID Qty: 64 0RF Rx Instructions: take 2 tablets twice a day for 2 days followed by 1 tablet twice a day ongoing. metoprolol succinate 25 mg tablet extended release 24 hr 25 mg PO PM Qty: 30 0RF lisinopril 2.5 mg tablet 2.5 mg PO PM Qty: 30 0RF (DME) pen needle, diabetic 29 gauge needle See Rx Instructions .Route Qty: 100 0RF Rx Instructions: As directed oxycodone 5 mg tablet 5 mg PO Q4H PRN (Reason: pain) Qty: 15 0RF gabapentin 300 mg capsule 300 mg PO AMPM diclofenac sodium 75 mg tablet,delayed release (DR/EC) 75 mg PO BID PRN (Reason: .Arthritis) Referrals Referrals: Maria Ines Damon DO [Primary Care Provider] - Discharge Problem: Anemia Qualifiers: Anemia type: unspecified type Qualified Code(s): D64.9 - Anemia, unspecified
[2024-09-26 16:13] LABS: Alanine Aminotransferase 14 U/L (7-52); Albumin Globulin Ratio 1.5 (0.9-2); Albumin Level 4.1 gm/dl (3.4-5.0); Alkaline Phosphatase 100 U/L (34-104); Anion Gap 10 (3-11); Aspartate Aminotransferase 13 U/L (13-39); Bilirubin,Total 0.6 mg/dl (0.2-1.0); Blood Urea Nitrogen 69 mg/dl (6-23); Calcium 8.5 mg/dl (8.6-10.3); Carbon Dioxide 20 mmol/L (21-32); Chloride 108 mmol/L (98-107); Globulin 2.7 gm/dl (2.5-4.0); Glucose 238 mg/dl (70-99(Fasting)); Potassium 4.9 mmol/L (3.5-5.1); Sodium 138 mmol/L (136-145); Total Protein 6.8 gm/dl (6.0-8.3)
[2024-09-26 16:15] VITALS: TEMP 98.2
[2024-09-26] MEDS: SODIUM CHLORIDE 0.9% 1,000 ML IV SCH ×2 (16:33→20:44)
--- NOTE | 2024-09-26 17:11 | CT Scan Report ---
Clinical History: Altered mental status Technique: Axial computed tomography images were obtained of the brain without intravenous contrast. Comparison is made to the prior CT dated 06/22/2024 Findings: There is unchanged cerebral atrophy, within expected limits for the patient's age. Areas of decreased attenuation are seen within the periventricular white matter, likely representing chronic small vessel ischemic disease. There is no definite sign of acute or old infarction. No intracranial hemorrhage is evident. No definite mass lesion is seen on this noncontrast examination. There is no midline shift or other form of herniation. No hydrocephalus is seen. No fracture is identified. The orbits and the visualized paranasal sinuses appear unremarkable. The mastoid air cells appear clear. Impression: 1. Cerebral atrophy and chronic small vessel ischemic disease 2. Otherwise unremarkable noncontrast CT of the brain Electronically signed by Ismael Solano 09-26-2024 4:30 PM
--- NOTE | 2024-09-26 17:31 | XRay Report ---
EXAM: Radiograph of the Chest 1 View INDICATION: Weakness TECHNIQUE: Frontal view of the chest. COMPARISON: 01/18/2024 and PET/CT 07/10/2024 FINDINGS: Lungs and pleural spaces: No consolidation or pulmonary edema. No pleural effusion or pneumothorax. Heart: Shape and configuration within normal limits allowing for technique. Mediastinum: Normal contour. Bones/joints: Stable sclerotic change of the proximal right clavicle. Old left rib fracture. No acute osseous destruction. Soft tissues: Increasing soft tissue density projecting over the medial right upper lung which may correlate to the known chest wall mass. Upper abdomen: No abnormality noted. IMPRESSION: Increasing soft tissue density projecting over the medial right upper lung which may correlate to the known chest wall mass. Conceivably, a right upper lobe pulmonary infiltrate could have this appearance but is thought less likely. ACT 112: Negative or not required by law. Electronically signed by Fernanda Pressley 09-26-2024 5:31 PM
[2024-09-26 18:14] LABS: Appearance Urine Clear (Clear); Bacteria Urine Automated None Seen (None Seen); Bilirubin Urine Negative (Negative); Blood Urine Negative (Negative); Cast Urine Automated 0-2 /lpf (0-2); Color Urine Yellow; Epithelial Cell Urine Auto 0-2 /hpf (0-2); Glucose Urine UA Negative (Negative); Ketones Urine Negative (Negative); Leukocyte Esterase Urine Negative (Negative); Nitrite Urine Negative (Negative); Protein Urine 2+ (Negative); RBC Urine Automated 0-2 /hpf (0-2); Specific Gravity Urine 1.013 (1.000-1.030); Urobilinogen Urine Negative (Negative); WBC Urine Automated 0-5 /hpf (0-5)
[2024-09-26 19:25] LABS: Creatine Kinase 32 U/L (30-223)
[2024-09-26 19:36] LABS: Uric Acid 14.8 mg/dl (2.6-7.2)
--- NOTE | 2024-09-26 21:04 | CT Scan Report ---
Exam(s): CT CHEST Without Contrast EXAM: CT Chest Without Intravenous Contrast CLINICAL HISTORY: Reason for exam: ? mass. TECHNIQUE: Axial computed tomography images of the chest without intravenous contrast. CTDI is 25.6 mGy and DLP is 826.76 mGy-cm. Automated exposure control was utilized for the study. A dose lowering technique was utilized adhering to the principles of ALARA. COMPARISON: No relevant prior studies available. FINDINGS: Lungs: Bilateral atelectasis and mild interstitial edema. Pleural space: Trace right pleural effusion. Heart: Unremarkable. Bones/joints: Both lytic and sclerotic metastatic lesions in the bones. No acute pathologic fracture. Soft tissues: Mass in the right upper anterior chest wall. Measures approximately 7 x 6.3 cm. Additional areas of pleural nodularity bilaterally. Appearances concerning for pleural-based malignancy or metastatic disease. Vasculature: Unremarkable. Lymph nodes: Unremarkable. Liver: Multiple incompletely characterized lesions in the liver. IMPRESSION: 1. Mass in the right upper anterior chest wall. Measures approximately 7 x 6.3 cm. Additional areas of pleural nodularity bilaterally. Appearances concerning for pleural-based malignancy or metastatic disease. 2. Bilateral atelectasis and mild interstitial edema. 3. Trace right pleural effusion. 4. Multiple incompletely characterized lesions in the liver. 5. Both lytic and sclerotic metastatic lesions in the bones. No acute pathologic fracture. Electronically signed by: Brando Jay MD 09/26/24 21:02 PM
--- NOTE | 2024-09-26 21:06 | History & Physical Report ---
Date of Service September 26, 2024 Assessment & Plan (1) YOSI (acute kidney injury): (2) Hypomagnesemia: (3) Volume depletion: (4) History of pulmonary embolus (PE): (5) Hypertension: (6) Dyslipidemia: (7) GE reflux: (8) History of DVT (deep vein thrombosis): (9) Acute renal failure: (10) Type 2 diabetes mellitus: Plan 69 yo male PMHx HTN, HLD, T2DM, GERD, DVT/PE, CAD, anemia referred for admission and transfer due to weakness, lab abnormalities and rapid progression of his known multiple myeloma. Plan [place] [facility] [place] as [place] available. #YOSI/Acute Renal Failure/Volume Depletion Baseline Cr ~1, 5.32 on admission Aggressive volume resuscitation - plan for 3-4L bolus + LR @125/hr Gates catheter in place CT scan w/o evidence of obstruction Suspect largely pre-renal with significantly elevated BUN of 69 #Multiple Myeloma/Chest Mass Decompensating functional capacity/aggressive spread Lytic lesions scattered throughout kevin structures There is a pathologic pubic fracture Lesions seen in liver Chest mass with pleural lesions as well Plan for transfer to [facility] [place] further workup and treatment #History of DVT/PE On Eliquis - continue #HTN Hold CLAUDETTE in setting of acute renal dysfunction Continue metoprolol #HLD Continue statin #T2DM Continue home dose glargine 30U BID ISS Hold metformin #GERD Continue Protonix FENGI: LR @125/hr, plan for 3-4L total bolus fluids, diet heart healthy/T2DM Code status: full DVT prophylaxis: Eliquis Isolation: none Disposition: med/tele History of Present Illness Primary Care Provider: Maria Ines Damon, DO 69 yo male PMHx HTN, HLD, T2DM, GERD, DVT/PE, CAD, anemia referred for admission and transfer due to weakness, lab abnormalities and rapid progression of his known multiple myeloma. Patient reports the he feels weak and tired. He has also had some increased confusion over the last week. He denies IRWIN, CP, SOB, N/V/D, LE edema at the time of admission. ED Course: Labs significant for anemia, K 4.9, acute renal failure Cr 5.32 w/ baseline ~1, Mg 1.6, uric acid 14.[address] Chest: 1. Mass in the right upper anterior chest wall. Measures approximately 7 x 6.3 cm. Additional areas of pleural nodularity bilaterally. Appearances concerning for pleural-based malignancy or metastatic disease. 2. Bilateral atelectasis and mild interstitial edema. 3. Trace right pleural effusion. 4. Multiple incompletely characterized lesions in the liver. 5. Both lytic and sclerotic metastatic lesions in the bones. No acute pathologic fracture. CT AP: 1. Multiple incompletely characterized lesions in the liver suspicious for metastatic disease. Consider MRI with and without contrast. 2. Insufficiency fractures in the bilateral sacral ala left greater than right. 3. Nonunited fracture of the left pubic ramus. 4. Scattered lytic and sclerotic lesions within the left iliac wing and spine suspicious for metastatic disease. Allergies Allergy/AdvReac Type Severity Reaction Status Date / Time amoxicillin [From Augmentin] Allergy Intermediate SWELLING Verified 09/19/24 12:27 AROUND EYES clavulanic acid Allergy Intermediate SWELLING Verified 09/19/24 12:27 AROUND THE EYES Penicillins Allergy Intermediate AUGMENTIN Verified 09/19/24 12:27 - SWELLING AROUND THE EYES diflunisal AdvReac Intermediate VOMITING Verified 09/19/24 12:27 valsartan [From Diovan] AdvReac Intermediate Vomiting Verified 09/19/24 12:27 Home Medications Medication Instructions Recorded Confirmed Type atorvastatin 40 mg tablet (Lipitor) 40 mg PO HS 08/09/19 09/26/24 History multivitamin (Multiple Vitamins 1 tab PO QAM 01/27/20 09/26/24 History tablet) blood sugar diagnostic (Accu-Chek #100 ea 05/23/22 12/02/23 Rx Josephine Plus test strips) pantoprazole 40 mg tablet,delayed 40 mg PO QAM #60 tabs 08/24/22 09/26/24 Rx release pen needle, diabetic 32 gauge x #100 ea 11/14/22 12/02/23 Rx /32" (BD Ultra-Fine Augustina Pen Needle) acyclovir 400 mg tablet 400 mg PO BID 08/21/23 09/26/24 History metformin 500 mg tablet 1,000 mg PO QPM 08/21/23 09/26/24 History metformin 500 mg tablet 500 mg PO QAM 08/21/23 09/26/24 History apixaban 5 mg tablet (Eliquis) 5 mg PO BID #64 tabs 08/28/23 09/26/24 Rx lisinopril 2.5 mg tablet 2.5 mg PO PM #30 tabs 08/28/23 09/26/24 Rx metoprolol succinate 25 mg 25 mg PO PM #30 tabs 08/28/23 09/26/24 Rx tablet,extended release 24 hr pen needle, diabetic 29 gauge #100 ea 09/02/23 12/02/23 Rx gabapentin 300 mg capsule 300 mg PO AMPM 12/02/23 09/26/24 History calcium citrate 400 mg PO QAM 07/01/24 09/26/24 History cholecalciferol (vitamin D3) 50 50 mcg PO QAM 07/01/24 09/26/24 History mcg (2,000 unit) capsule dexamethasone 4 mg tablet 40 mg PO DIRECTED 07/01/24 09/26/24 History insulin aspart U-100 100 unit/mL 23 unit subcut TIDM 07/01/24 09/26/24 History (3 mL) subcutaneous pen (Novolog FlexPen U-100 Insulin aspart) insulin glargine 100 unit/mL 30 unit SC AMPM 07/01/24 09/26/24 History subcutaneous solution (Lantus U-100 Insulin) clindamycin HCl 300 mg capsule 300 mg PO TID 09/26/24 09/26/24 History Past Med/Surg History Problem List (Updated 09/26/24 @ 21:40 by Mat Gallo DO) History of pulmonary embolus (PE) (02/09/23) per CT 02/09/23--however pt denies having a PE?? Acute confusion (Acute) Anemia (Acute) YOSI (acute kidney injury) (Acute) Dental infection (Acute) Hip bursitis, left Cellulitis of toe of left foot Pneumonia Sepsis Hypomagnesemia (Acute) Hypoxia (Acute) Confusion Hypophosphatemia Hypocalcemia Shock Volume depletion Elevated troponin Palliative care by specialist Encephalopathy Metabolic acidosis Self-care deficit Hypothermia (Acute) YOSI (acute kidney injury) (Acute) Acute hyponatremia (Acute) Elevated troponin I level (Acute) AMS (altered mental status) (Acute) DKA (diabetic ketoacidosis) (Acute) Pulmonary embolus DVT (deep venous thrombosis) Low back pain Normal left ventricular systolic function and wall motion Normal stress echocardiogram Left anterior fascicular block Hypomagnesemia Edema Pathological compression fracture of spine Edema Weakness generalized Cancer related pain Advanced care planning/counseling discussion Palliative care encounter Pain Fall (Acute) Light chain myeloma (Chronic) Osteolytic lesion (Acute) Lytic lesion of bone on x-ray (Acute) Closed compression fracture of L1 vertebra (Acute) SOB (shortness of breath) on exertion Antiplatelet or antithrombotic long-term use GE reflux Hypertension Obstructive sleep apnea Dyslipidemia Medical History (Updated 09/26/24 @ 21:40 by Mat Gallo DO) Poor historian upon questioning pt regarding health hx for PAT assessment he stated he never had a PE before and only had a DVT--?? per CT 02/09/23 pt had PE ?? Dyslipidemia Hypertension History of cellulitis History of chemotherapy currently receiving for multiple myeloma Multiple myeloma receiving chemo currently--diagnosed 2020? History of DVT (deep vein thrombosis) 11/2022--on eliquis bid On anticoagulant therapy eliquis bid Dental infection current issue--on clindamycin Sleep apnea cpap Metabolic encephalopathy Elevated troponin level Hypercalcemia Acute renal failure hx Acute back pain hx Fatigue Gout Vitamin D deficiency Type 2 diabetes mellitus IDDM Tendon laceration hx--repaired Laceration of multiple sites of left hand and fingers Chest pain hx--pt denies any currently Bronchitis hx Surgical History (Updated 09/19/24 @ 12:43 by Charo Burk, ESTHELA) History of colonoscopy History of tooth extraction History of surgery on arm Family History (Updated 09/19/24 @ 12:45 by Charo Burk, ESTHELA) Father Dyslipidemia Alzheimer disease Mother Diabetes Coronary heart disease Other Family history non-contributory No family history of adverse response to anesthesia Social History Smoking Status: Never smoker Second Hand Exposure: No; Do You Dip or Chew Tobacco: No; Hx Alcohol Use: No Hx Substance Use: No Preferred Language: Indonesian Communication Ability: Effective Custodian Required: No Beliefs That Will Affect Care: None marital status: Single marital status details: no children Current Living Situation: Alone Current Living Situation Comment: lives with mother current occupational status: retired Feels Safe at Home: Yes Assistive Devices: CPAP Review of Systems Review of Systems: reviewed, per HPI Physical Exam Physical Exam: Constitutional: well-appearing, no acute distress HEENT: NCAT, no conjunctival injection CV: regular rhythm, no murmur appreciated, extremities well-perfused, no LE edema Resp: CTABL, no wheezes/rales/rhonchi appreciated, no increased work of breathing GI: nondistended MSK: Palpable R chest wall mass Skin: warm, dry, no rash appreciated Neuro: alert, oriented, no focal neurologic deficit appreciated Results & Data Results & Data Vital Signs (Past 12 Hours) Vital Signs Temp Pulse Pulse Resp BP BP Pulse Ox 09/26/24 20:02 92 H 18 170/88 H 97 09/26/24 19:29 90 18 176/96 H 98 09/26/24 19:28 92 H 09/26/24 18:00 36.8 C 99 H 20 166/93 H 96 09/26/24 16:12 36.8 C 81 20 167/83 H 96 09/26/24 15:19 76 09/26/24 14:02 36.7 C 77 20 187/76 H 99 O2 Del Method 09/26/24 20:02 Room Air 09/26/24 19:29 Room Air 09/26/24 19:28 09/26/24 18:00 Room Air 09/26/24 16:12 Room Air 09/26/24 15:19 09/26/24 14:02 Room Air Code Status & VTE Plan VTE Prophylaxis Plan VTE Prophylaxis will be ordered: Yes Supervising Physician Co-Signing Physician Notes Attending addendum: I have physically seen this patient, have supervised the medical residents activities, and agree with the H&P unless as otherwise noted. Assessment and Plan: The patient is a 69-year-old male with past medical history including hypertension, hyperlipidemia, diabetes mellitus type 2, GERD, DVT/PE, CAD, anemia who was [facility] after being referred to the emergency department by oncology regarding outpatient abnormal normal workup including a chest wall mass, and acute kidney failure. Plans for patient to be transferred to [facility], however, there are currently no beds available, and patient will be managed and not ending until bed is available for transfer.\\ # Acute renal failure/volume depletion- Creatinine 5.32 on admission, base of 1 Will received total of [address] scan ordered and no sign of obstruction, mass, abscess etc. Repeat laboratories in a.m. as noted Chest wall mass/multiple myeloma- CT scan chest notes previously known mass Lytic lesions throughout bony structures noted Pathologic pubic fracture Plan is for transfer to [facility] for further evaluation and treatment History of DVT/PE- Continue Eliquis Chronic Medical Condtions: DM-hold metformin. continue glargine, place on SSI GERD- pantoprazole HTN- continue metoprolol Remaining orders and notations as noted Resident Activity Tracking Resident Involvement: Resident Care Provided Care Provided: Adult Hospital Medicine (9) Acute renal failure Acute renal failure type: unspecified Qualified Code(s): N17.9 - Acute kidney failure, unspecified
--- NOTE | 2024-09-26 21:14 | CT Scan Report ---
Exam(s): CT ABDOMEN + PELVIS Without Contrast EXAM: CT Abdomen and Pelvis Without Intravenous Contrast CLINICAL HISTORY: Reason for exam: abd pain. TECHNIQUE: Axial computed tomography images of the abdomen and pelvis without intravenous contrast. CTDI is 16.84 mGy and DLP is 847.01 mGy-cm. Automated exposure control was utilized for the study. A dose lowering technique was utilized adhering to the principles of ALARA. COMPARISON: No relevant prior studies available. FINDINGS: ABDOMEN: Liver: Multiple incompletely characterized lesions in the liver. Gallbladder and bile ducts: Cholelithiasis without cholecystitis. [place]. Pancreas: Fatty atrophy of the pancreas. Spleen: Unremarkable. Adrenals: Unremarkable. Kidneys and ureters: Unremarkable. No obstructing stones. No hydronephrosis. Stomach and bowel: Unremarkable. PELVIS: Appendix: No findings to suggest acute appendicitis. Bladder: Gates catheter within the bladder. Reproductive: Unremarkable as visualized. ABDOMEN and PELVIS: Intraperitoneal space: Unremarkable. No free air. No significant fluid collection. Bones/joints: Insufficiency fractures in the bilateral sacral ala left greater than right. Nonunited fracture of the left pubic ramus. Scattered lytic and sclerotic lesions within the left iliac wing and spine suspicious for metastatic disease. Chronic appearing compression deformities at T12, L1, and L3. Soft tissues: Unremarkable. Vasculature: Aortobiiliac atherosclerosis. Lymph nodes: Unremarkable. IMPRESSION: 1. Multiple incompletely characterized lesions in the liver suspicious for metastatic disease. Consider MRI with and without contrast. 2. Insufficiency fractures in the bilateral sacral ala left greater than right. 3. Nonunited fracture of the left pubic ramus. 4. Scattered lytic and sclerotic lesions within the left iliac wing and spine suspicious for metastatic disease. Electronically signed by: Brando Jay MD 09/26/24 21:12 PM
[2024-09-26] MEDS: LACTATED RINGER'S 1,000 ML IV ONE (21:51)
[2024-09-26] MEDS ORDERED: ALUMINUM/MAGNESIUM SUSP 30 ML UDC PO PRN (22:09)
[2024-09-26] MEDS ORDERED: GLUCOSE 10 TAB/TUBE PO PRN (22:09)
[2024-09-26] MEDS ORDERED: GLUCAGON FOR INJ 1 MG VIAL SQ PRN (22:09)
[2024-09-26] MEDS ORDERED: ACETAMINOPHEN 500 MG TAB PO PRN (22:09)
[2024-09-26] MEDS ORDERED: GLUCOSE 40% GEL 15 GM TUBE PO PRN (22:09)
[2024-09-26] MEDS ORDERED: CARBOHYDRATES FOR HYPOGLYCEMIA PO PRN (22:09)
[2024-09-26] MEDS ORDERED: POLYETHYLENE (MIRALAX) 17 GM PACK PO PRN (22:09)
[2024-09-26] MEDS ORDERED: ONDANSETRON INJ 2 MG/ML 2 ML VIAL IV PRN (22:09)
[2024-09-26] MEDS ORDERED: oxyCODONE HCL IR 5 MG TAB (IMMEDIATE RELEASE) PO PRN (22:09)
[2024-09-26] MEDS ORDERED: MAGNESIUM HYDROXIDE SUSP 30 ML UDC PO PRN (22:09)
[2024-09-26] MEDS ORDERED: DICLOFENAC SODIUM 75 MG TABCR PO PRN (22:09)
[2024-09-26] MEDS ORDERED: DEXTROSE 50% 50 ML SYRINGE IV PRN (22:09)
[2024-09-26] MEDS: MAGNESIUM SULFATE / D5W 1 GM/100 ML BAG IV SCH (22:35)
--- NOTE | 2024-09-26 22:56 | Discharge Summary ---
Date of Service September 26, 2024 Admission HPI Per Admitting Provider 69 yo male PMHx HTN, HLD, T2DM, GERD, DVT/PE, CAD, anemia referred for admission and transfer due to weakness, lab abnormalities and rapid progression of his known multiple myeloma. Patient reports the he feels weak and tired. He has also had some increased confusion over the last week. He denies IRWIN, CP, SOB, N/V/D, LE edema at the time of admission. ED Course: Labs significant for anemia, K 4.9, acute renal failure Cr 5.32 w/ baseline ~1, Mg 1.6, uric acid 14.[address] Chest: 1. Mass in the right upper anterior chest wall. Measures approximately 7 x 6.3 cm. Additional areas of pleural nodularity bilaterally. Appearances concerning for pleural-based malignancy or metastatic disease. 2. Bilateral atelectasis and mild interstitial edema. 3. Trace right pleural effusion. 4. Multiple incompletely characterized lesions in the liver. 5. Both lytic and sclerotic metastatic lesions in the bones. No acute pathologic fracture. CT AP: 1. Multiple incompletely characterized lesions in the liver suspicious for metastatic disease. Consider MRI with and without contrast. 2. Insufficiency fractures in the bilateral sacral ala left greater than right. 3. Nonunited fracture of the left pubic ramus. 4. Scattered lytic and sclerotic lesions within the left iliac wing and spine suspicious for metastatic disease. Admission Exam Per Admitting Provider Constitutional: well-appearing, no acute distress HEENT: NCAT, no conjunctival injection CV: regular rhythm, no murmur appreciated, extremities well-perfused, no LE edema Resp: CTABL, no wheezes/rales/rhonchi appreciated, no increased work of breathing GI: nondistended MSK: Palpable R chest wall mass Skin: warm, dry, no rash appreciated Neuro: alert, oriented, no focal neurologic deficit appreciated Principal Diagnosis Acute Renal Failure, Multiple Myeloma Discharge Exam Constitutional: well-appearing, no acute distress HEENT: NCAT, no conjunctival injection CV: regular rhythm, no murmur appreciated, extremities well-perfused, no LE edema Resp: CTABL, no wheezes/rales/rhonchi appreciated, no increased work of breathing GI: nondistended MSK: Palpable R chest wall mass Skin: warm, dry, no rash appreciated Neuro: alert, oriented, no focal neurologic deficit appreciated Discharge Data Allergies Allergy/AdvReac Type Severity Reaction Status Date / Time amoxicillin [From Augmentin] Allergy Intermediate SWELLING Verified 09/19/24 12:27 AROUND EYES clavulanic acid Allergy Intermediate SWELLING Verified 09/19/24 12:27 AROUND THE EYES Penicillins Allergy Intermediate AUGMENTIN Verified 09/19/24 12:27 - SWELLING AROUND THE EYES diflunisal AdvReac Intermediate VOMITING Verified 09/19/24 12:27 valsartan [From Diovan] AdvReac Intermediate Vomiting Verified 09/19/24 12:27 Consultations 09/26/24 19:22 ED Decision to Admit Stat 09/26/24 22:09 Consult Nephrology Routine Ordered Studies 09/26/24 15:51 CT head/brain wo con Stat 09/26/24 19:22 CT abd pelvis wo con Stat CT chest diagnostic wo con Stat Hospital Course (1) YOSI (acute kidney injury): (2) Hypomagnesemia: (3) Volume depletion: (4) History of pulmonary embolus (PE): (5) Hypertension: (6) Dyslipidemia: (7) GE reflux: (8) History of DVT (deep vein thrombosis): (9) Acute renal failure: (10) Type 2 diabetes mellitus: Plan 69 yo male PMHx HTN, HLD, T2DM, GERD, DVT/PE, CAD, anemia referred for admission and transfer due to weakness, lab abnormalities and rapid progression of his known multiple myeloma. ED Course: Labs significant for anemia, K 4.9, acute renal failure Cr 5.32 w/ baseline ~1, Mg 1.6, uric acid 14.[address] Chest: 1. Mass in the right upper anterior chest wall. Measures approximately 7 x 6.3 cm. Additional areas of pleural nodularity bilaterally. Appearances concerning for pleural-based malignancy or metastatic disease. 2. Bilateral atelectasis and mild interstitial edema. 3. Trace right pleural effusion. 4. Multiple incompletely characterized lesions in the liver. 5. Both lytic and sclerotic metastatic lesions in the bones. No acute pathologic fracture. CT AP: 1. Multiple incompletely characterized lesions in the liver suspicious for metastatic disease. Consider MRI with and without contrast. 2. Insuffici ency fractures in the bilateral sacral ala left greater than right. 3. Nonunited fracture of the left pubic ramus. 4. Scattered lytic and sclerotic lesions within the left iliac wing and spine suspicious for metastatic disease. [place] [facility] [place]. #YOSI/Acute Renal Failure/Volume Depletion Baseline Cr ~1, 5.32 on admission Aggressive volume resuscitation - plan for 3-4L bolus + LR @125/hr Gates catheter in place CT scan w/o evidence of obstruction Suspect largely pre-renal with significantly elevated BUN of 69 #Multiple Myeloma/Chest Mass Decompensating functional capacity/aggressive spread Lytic lesions scattered throughout kevin structures There is a pathologic pubic fracture Lesions seen in liver Chest mass with pleural lesions as well Plan for transfer [place] [facility] [place] and treatment #History of DVT/PE On Eliquis - continue #HTN Hold CLAUDETTE in setting of acute renal dysfunction Continue metoprolol #HLD Continue statin #T2DM Continue home dose glargine 30U BID ISS Hold metformin #GERD Continue Protonix FENGI: LR @125/hr, plan for 3-4L total bolus fluids, diet heart healthy/T2DM Code status: full DVT prophylaxis: Eliquis Isolation: none Disposition: med/tele Total Time Total Time Spent Total Time Spent (In Minutes): see attending documentation Discharge Plan Discharge Items Patient Disposition: Transfer Acute [facility] Reason For Visit: YOSI, TRANSFER TO [facility] MULTIPLE MYELOMA Discharge Diagnosis: YOSI/Acute renal failure/Multiple Myeloma Activity: Per Instructions section Non-emergency contact: Primary Care Provider and Oncologist Call non-emergency contact if: you have any medication questions Follow-up/Referrals: Maria Ines Damon DO [Primary Care Provider] - Diet: Carb Consistent or DM2 and Heart Healthy Addtl Attending Provider Instructions: 69 yo male PMHx HTN, HLD, T2DM, GERD, DVT/PE, CAD, anemia referred for admission and transfer due to weakness, lab abnormalities and rapid progression of his known multiple myeloma. [place] [facility] [place] is [place]. #YOSI/Acute Renal Failure/Volume Depletion Baseline Cr ~1, 5.32 on admission Aggressive volume resuscitation - plan for 3-4L bolus + LR @125/hr Gates catheter in place CT scan w/o evidence of obstruction Suspect largely pre-renal with significantly elevated BUN of 69 #Multiple Myeloma/Chest Mass Decompensating functional capacity/aggressive spread Lytic lesions scattered throughout kevin structures There is a pathologic pubic fracture Lesions seen in liver Chest mass with pleural lesions as well Plan for transfer [place] [facility] [place] work[place] and treatment #History of DVT/PE On Eliquis - continue #HTN Hold CLAUDETTE in setting of acute renal dysfunction Continue metoprolol #HLD Continue statin #T2DM Continue home dose glargine 30U BID ISS Hold metformin #GERD Continue Protonix FENGI: LR @125/hr, plan for 3-4L total bolus fluids, diet heart healthy/T2DM Code status: full DVT prophylaxis: Eliquis Isolation: none Disposition: med/tele Pending Studies at Discharge: No Stand-Alone Forms: My [facility] Skilled Items Patient informed of condition?: Yes DNR: No Discharge Level of Care: Other Communicable Disease: No Discharge Prognosis: Stable Lines: Peripheral IV Urinary Catheter: Yes Medications and DC Order Prescriptions: Continued (DME) Accu-Chek Josephine Plus test strp Strip See Rx Instructions .ROUTE .MEDSUPPLY Qty: 100 3RF Rx Instructions: checking TID multivitamin [Multiple Vitamins] Tablet 1 tab PO QAM (DME) pen needle, diabetic [BD Ultra-Fine Augustina Pen Needle] 32 gauge x 5/32" needle See Rx Instructions .ROUTE .MEDSUPPLY Qty: 100 3RF Rx Instructions: Use to inject once daily atorvastatin [Lipitor] 40 mg tablet 40 mg PO HS dexamethasone 4 mg tablet 40 mg PO DIRECTED Rx Instructions: ONLY TAKE ON SEP 19, OCTOBER 03, , , OCTOBER 3, , , 24 insulin aspart U-100 [Novolog FlexPen U-100 Insulin] 100 unit/mL (3 mL) insulin pen 23 unit subcut TIDM insulin glargine [Lantus U-100 Insulin] 100 unit/mL solution 30 unit SC AMPM calcium citrate 200 mg (950 mg) tablet 400 mg PO QAM cholecalciferol (vitamin D3) 50 mcg (2,000 unit) capsule 50 mcg PO QAM pantoprazole 40 mg Tablet,Delayed Release (Dr/Ec) 40 mg PO QAM Qty: 60 0RF metformin 500 mg tablet 500 mg PO QAM metformin 500 mg tablet 1,000 mg PO QPM acyclovir 400 mg tablet 400 mg PO BID Eliquis 5 mg Tablet 5 mg PO BID Qty: 64 0RF Rx Instructions: take 2 tablets twice a day for 2 days followed by 1 tablet twice a day ongoing. metoprolol succinate 25 mg tablet extended release 24 hr 25 mg PO PM Qty: 30 0RF lisinopril 2.5 mg tablet 2.5 mg PO PM Qty: 30 0RF (DME) pen needle, diabetic 29 gauge needle See Rx Instructions .Route Qty: 100 0RF Rx Instructions: As directed clindamycin HCl 300 mg capsule 300 mg PO TID Rx Instructions: FOR 10 DAYS SHOULD BE COMPLETED ON 09/28 gabapentin 300 mg capsule 300 mg PO AMPM Discharge Orders: Discharge Order (Routine); Ordered 09/26/24 Ordered By: Mat Gallo Admission Data Admit Date/Time: 09/26/24 20:59 Attending Provider: Melissa Choe Admit Provider: Mat Gallo Primary Care Provider: Maria Ines Damon Other Providers: Kunal Dorman Kevin C. Supervising Physician Co-Signing Physician Notes The patient as noted is transferred to tertiary care center per initial plans.
[2024-09-26] MEDS: ACYCLOVIR 400 MG TAB PO SCH (22:59)
[2024-09-26] MEDS: GABAPENTIN 300 MG CAP PO SCH (23:00)
[2024-09-26] MEDS: ATORVASTATIN 40 MG TAB PO SCH (23:00)
[2024-09-26] MEDS: LACTATED RINGER'S 1,000 ML IV SCH ×2 (23:01→23:14)
[2024-09-26] MEDS: LANTUS PER UNIT CHARGE SQ SCH (23:01)
[2024-09-26] MEDS: METOPROLOL SUCC 25MG EXT REL TAB PO SCH (23:01)
[2024-09-26] MEDS: INSULIN ASPART PER UNIT CHARGE SC SCH (23:02)
[2024-09-27 00:58] VITALS: BP 179/125; PULSE 101; RESP 18; O2SAT 97
[2024-09-27] MEDS ORDERED: PANTOprazole 40 MG TAB PO SCH (09:00)
[2024-09-27] MEDS ORDERED: MULTIVITAMIN TAB PO SCH (09:00)
--- NOTE | 2024-09-27 20:18 | Billing Data ---
Date of Service September 27, 2024 Coding Level of Care Code 68064 INT INP/OBS CARE
--- NOTE | 2024-09-28 12:49 | Electrocardiogram Report ---
Test Reason : Blood Pressure : */* mmHG Vent. Rate : 70 BPM Atrial Rate : 70 BPM P-R Int : 146 ms QRS Dur : 74 ms QT Int : 400 ms P-R-T Axes : 27 -37 52 degrees QTcB Int : 432 ms Normal sinus rhythm Left axis deviation Abnormal ECG When compared with ECG of 01-Dec-2023 20:46, Vent. rate has decreased by 86 bpm Confirmed by Mariano Quintero ([id number]) on 09/28/2024 12:49:27 PM Referred By: Confirmed By: Mariano Quintero
== END 2024-09-27 00:40 | disposition short-term general hospital (02) ==
LOC: SUATTDRO → ED 14:02 → SUATTDRO 20:59 → EDINP 20:59 → INTOOBSV 20:59 → EDINP 09-27 00:55

== ENCOUNTER 2024-10-08 14:04 | Inpatient (IN) ==
[2024-10-09 02:34] VITALS: BP 137/79; PULSE 112; RESP 18; TEMP 97.7; O2SAT 97
--- OUTSIDE RECORDS SUMMARY | 2024-10-09 02:48 | External Medical Summary | Summary of Care ---
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 [address] 5th Floor [place], [place] [id number] Stephania Villaseñor MD [address] [place], [place] [id number] Fax (Samra Auguste) Allergies Active Allergy Reactions Criticality Noted Date Comments Amoxicillin 11/14/2023 Clavulanic Acid 11/14/2023 Diflunisal 08/11/2016 Penicillins 11/14/2023 Valsartan 11/14/2023 documented as of this encounter (statuses as of 10/02/2024) Medications MetFORMIN (GLUCOPHAGE) 1000 MG Tablet Take 1,000 mg by mouth 2 times a day with morning and evening meals. Active Lisinopril 30 MG Tablet Take 30 mg by mouth daily. Active hydrochlorothiaz sonia (HYDRODIURIL) 25 MG Tablet Take 25 mg by mouth daily. Active atorvaSTATin (LIPITOR) 10 MG Tablet Take 10 mg by mouth daily. Active Aspirin 81 MG Tablet Take 81 mg by mouth daily. Active Vitamin D, Cholecalciferol, 1000 UNITS CAPS Take by mouth. Active Multiple Vitamin (MULTI VITAMIN DAILY) TABS Take by mouth. Act emelia Apixaban 5 MG Oral Tablet (Eliquis) Take 1 Tablet by mouth in the morning and 1 Tablet before bedtime. Active Insulin Glargine 100 UNIT/ML Subcutaneous Solution Pen-injector (Lantus) Inject under the skin. Active Insulin Aspart 100 UNIT/ML Subcutaneous Solution Cartridge Inject under the skin. Active pantoprazole 40 mg in 100 mL NSS Administer 100 mL intravenously in the morning. Active dexAMETHasone 2 MG Oral Tablet (Decadron) Take 1 Tablet by mouth 2 times a day with morning and evening meals. Active Acyclovir 400 MG Oral Tablet (Zovirax) Take 1 Tablet by mouth 5 times a day. Active Gabapentin 300 MG Oral Capsule (Neurontin)Indic ations:Cancer related pain TAKE 1 CAPSULE BY MOUTH EVERY MORNING AND BEFORE BEDTIME. 60 Capsule 11/30/19 24 Active Mirtazapine 7.5 MG Oral Tablet (Remeron)Indicat ions:Insomnia, unspecified type Take 1 Tablet by mouth at bedtime. 30 Tablet 12/12/19 24 Active documented as of this encounter (statuses as of 10/02/2024) Active Problems Problem Noted Date Diagnosed Date Insulin resistance HTN (hypertension) Dyslipidemia documented as of this encounter (statuses as of 10/02/2024) Social History Tobacco Use Types Packs/Day Years Used Date Smoking Tobacco: Never Smokeless Tobacco: Never Alcohol Use Standard Drinks/Week Comments Yes 0 (1 standard drink = 0.6 oz pur e alcohol) Utilities Answer Date Recorded Do you have trouble paying y our heating, water, or electric bill? (Adult - for ages 18 years and over) Not on file 01/16/2024 Is your family able to pay t he heat, water, or electric bill? (Household - for ages 0-17 years) Not on file 01/16/2024 Does your family have access to good internet? (Household - for ages 0-17 years) Not on file 01/16/2024 Social Connections Answer Date Recorded How often do you feel lonely or isolated from those around you? (Adult - for ages 18 years and over) Not on file 01/16/2024 Sex and Gender Information Value Date Recorded Sex Assigned at Not on file Legal Sex Male 7:02 AM EST Gender Identity Not on file Sexual Orientation Not on file documented as of this encounter Miscellaneous Notes * Telephone Encounter - Nano Coleman OSA - 10/02/2024 11:02 AM EST Anitra from [facility] has been notified of the message. She has no further questions. * Telephone Encounter - Breanna Edward LPN - 10/01/2024 1:29 PM EST Call placed to [facility]. I was unable to speak to JAMARI who called. I spoke with Susi the charge nurse with the [facility]. She states the patient is admitted to this unit and there has been some lockwood areas about his wishes. Relayed to Susi that we do not have any advance directives from patient- they were never turned back into us from the patient. Her direct call back # is [phone]. * Telephone Encounter - Nano Coleman OSA - 10/01/2024 1:07 PM EST Caller requesting the following information to be faxed: Name/Company of caller: [facility] Information requested to be faxed: Pt's Advanced Directives Fax number: [phone] Attention to Name/Company: Anitra (JAMARI) Any additional information?: Pt is currently at their facility, is not very capacitated in mind; they need to see his advanced directives HERMAN. documented in this encounter Plan of Treatment Health Maintenance Due Date Last Done Comments GFR 1953 Lipid Panel 1953 Depression Screening 1965 Albumin/Creatinine Ratio 1971 Hepatitis C Screening 1971 DTap/Tdap Vaccines (1 - Tdap) 1972 Cologuard 1998 Colonoscopy 1998 Colorectal Cancer Screening 1998 Fecal Occult Blood Test 1998 Sigmoidoscopy 1998 COVID-19 Vaccine ( season) 2024 02/25/2022, 02/25/2022, 10/23/2020, Additional history exists Influenza Vaccine (FLU shot) (#1) 2024 06/11/2019, 03/27/2012 Pneumococcal Vaccine: 50+ Years (3 of 3 - PCV20 or PCV21) 02/11/2025 02/12/2020, 06/30/2015 Zoster Vaccines Completed 06/19/2020, 01/28, 06/17/2014 HPV (Gardasil) Vaccine Aged Out No lo nger eligible based on patient's age to complete this topic Hepatitis B Vaccine Aged Out No longe r eligible based on patient's age to complete this topic MENINGOCOCCAL (MENACTRA/MENVEO) Aged Out No longer eligible based on patient's age to complete this topic Meningitis B Vaccine (Bexsero/Trumemba) Aged Out No longer eligible based on patient's age to complete this topic documented as of this encounter Medical Devices Not on filedocumented as of this encounter Care Teams Men'S Garment Fitter Relationship Specialty Start Date End Date Maria Ines Damon DO [address] [place] [address] Dr Castillo [address] [place] [address], [place] [address] PCP - General Family Medicine 08/11/16 documented as of this encounter
[2024-10-09] MEDS ORDERED: GLYCOPYRROLATE 0.2 MG/ML VIAL IV PRN (04:58)
[2024-10-09] MEDS ORDERED: ONDANSETRON 4 MG OD TAB SL PRN (04:58)
[2024-10-09] MEDS ORDERED: PROMETHAZINE HCL 25 MG TAB PO PRN (04:58)
[2024-10-09] MEDS ORDERED: ACETAMINOPHEN 325 MG TAB PO PRN (04:58)
--- NOTE | 2024-10-09 07:43 | Hospitalist Progress Note ---
Date of Service October 09, 2024 Assessment & Plan Admission and Anticipated Discharge Date Admission Date: October 09, 2024 Subjective This morning, pt reports Review of Systems Review of Systems: As per HPI Physical Exam Physical Exam: Constitutional: HEENT: Resp: Cardio: Abd: MSK: Skin: Psych: Results & Data Results & Data Vital Signs (Past 12 Hours) Vital Signs Temp Pulse Resp BP Pulse Ox O2 Del Method 10/09/24 02:33 36.5 C 112 H 18 137/79 97 Room Air 10/09/24 02:30 36.6 C 112 H 18 137/79 97 Room Air
[2024-10-09] MEDS: MoRPHine SULFATE 10 MG/0.5 ML UDP PO PRN (10:15)
[2024-10-09] MEDS: MoRPHine SULFATE 4 MG/ML 1 ML CARP\\VIAL IV STA (11:43)
--- NOTE | 2024-10-09 13:57 | History & Physical Report ---
Date of Service October 09, 2024 Assessment & Plan (1) Multiple myeloma: (2) Cancer related pain: (3) Lytic lesion of bone on x-ray: Plan #Multiple myeloma # Cancer pain #Lytic bone lesions - Comfort measures only - Pain mgt: Tylenol 650 PRN q6h Morphine 5mg PRN q3h - for anxiety/agitation: Lorazapam 0.5mg PRN q4h haloperidol 0.5mg PRN q4h - for nausea: Zofran 4mg PRN q4h promethazine 12.5mg PRN q6h - for secretions atropine 1% PRN q1h glycopyrrolate 0.4mg PRN q4h - Pastoral care Diet: NPO Code status: DNR/DNI Admission and Anticipated Discharge Date Admission Date: October 09, 2024 History of Present Illness Chief Complaint: Multiple Myeloma/acute metabolic encephalopathy Primary Care Provider: Maria Ines Damon DO Pt is a 69 yo male who presents as a transfer from [facility] carrying diagnosis of multiple myeloma with acute metabolic encephalopathy, left pubic rami and sacral alar fracture 2/2 lytic lesions, soft tissue osseous lesions at chest wall, and bilateral pleural effusions. Treatments for his conditions were explored. After meeting with his primary oncologist and palliative care team, pt's caregiver and next of kin decided to change his code status to comfort measures only. He was transferred back to [facility] for comfort measures to be carried out. Allergies Allergy/AdvReac Type Severity Reaction Status Date / Time amoxicillin [From Augmentin] Allergy Intermediate SWELLING Verified 09/19/24 12:27 AROUND EYES clavulanic acid Allergy Intermediate SWELLING Verified 09/19/24 12:27 AROUND THE EYES Penicillins Allergy Intermediate AUGMENTIN Verified 09/19/24 12:27 - SWELLING AROUND THE EYES diflunisal AdvReac Intermediate VOMITING Verified 09/19/24 12:27 valsartan [From Diovan] AdvReac Intermediate Vomiting Verified 09/19/24 12:27 Home Medications Medication Instructions Recorded Confirmed Type atorvastatin 40 mg tablet (Lipitor) 40 mg PO HS 08/09/19 09/26/24 History multivitamin (Multiple Vitamins 1 tab PO QAM 01/27/20 09/26/24 History tablet) blood sugar diagnostic (Accu-Chek #100 ea 05/23/22 12/02/23 Rx Josephine Plus test strips) pantoprazole 40 mg tablet,delayed 40 mg PO QAM #60 tabs 08/24/22 09/26/24 Rx release pen needle, diabetic 32 gauge x #100 ea 11/14/22 12/02/23 Rx " (BD Ultra-Fine Augustina Pen Needle) acyclovir 400 mg tablet 400 mg PO BID 08/21/23 09/26/24 History metformin 500 mg tablet 1,000 mg PO QPM 08/21/23 09/26/24 History metformin 500 mg tablet 500 mg PO QAM 08/21/23 09/26/24 History apixaban 5 mg tablet (Eliquis) 5 mg PO BID #64 tabs 08/28/23 09/26/24 Rx lisinopril 2.5 mg tablet 2.5 mg PO PM #30 tabs 08/28/23 09/26/24 Rx metoprolol succinate 25 mg 25 mg PO PM #30 tabs 08/28/23 09/26/24 Rx tablet,extended release 24 hr pen needle, diabetic 29 gauge #100 ea 09/02/23 12/02/23 Rx gabapentin 300 mg capsule 300 mg PO AMPM 12/02/23 09/26/24 History calcium citrate 400 mg PO QAM 07/01/24 09/26/24 History cholecalciferol (vitamin D3) 50 50 mcg PO QAM 07/01/24 09/26/24 History mcg (2,000 unit) capsule dexamethasone 4 mg tablet 40 mg PO DIRECTED 07/01/24 09/26/24 History insulin aspart U-100 100 unit/mL 23 unit subcut TIDM 07/01/24 09/26/24 History (3 mL) subcutaneous pen (Novolog FlexPen U-100 Insulin aspart) insulin glargine 100 unit/mL 30 unit SC AMPM 07/01/24 09/26/24 History subcutaneous solution (Lantus U-100 Insulin) clindamycin HCl 300 mg capsule 300 mg PO TID 09/26/24 09/26/24 History Past Med/Surg History Problem List (Updated 10/09/24 @ 17:46 by Mara Zapien DO) Multiple myeloma receiving chemo currently--diagnosed 2020? History of pulmonary embolus (PE) (02/09/23) per CT 02/09/23--however pt denies having a PE?? Acute confusion (Acute) Anemia (Acute) YOSI (acute kidney injury) (Acute) Hip bursitis, left Cellulitis of toe of left foot Pneumonia Sepsis Hypomagnesemia (Acute) Hypoxia (Acute) Confusion Hypophosphatemia Hypocalcemia Shock Volume depletion Elevated troponin Palliative care by specialist Encephalopathy Metabolic acidosis Self-care deficit Hypothermia (Acute) YOSI (acute kidney injury) (Acute) Acute hyponatremia (Acute) Elevated troponin I level (Acute) AMS (altered mental status) (Acute) DKA (diabetic ketoacidosis) (Acute) Pulmonary embolus DVT (deep venous thrombosis) Low back pain Normal left ventricular systolic function and wall motion Normal stress echocardiogram Left anterior fascicular block Hypomagnesemia Edema Pathological compression fracture of spine Edema Weakness generalized Cancer related pain Advanced care planning/counseling discussion Palliative care encounter Pain Fall (Acute) Light chain myeloma (Chronic) Osteolytic lesion (Acute) Lytic lesion of bone on x-ray (Acute) Closed compression fracture of L1 vertebra (Acute) SOB (shortness of breath) on exertion Antiplatelet or antithrombotic long-term use GE reflux Hypertension Obstructive sleep apnea Dyslipidemia Medical History (Updated 10/09/24 @ 17:46 by Mara Zapien DO) Poor historian upon questioning pt regarding health hx for PAT assessment he stated he never had a PE before and only had a DVT--?? per CT 02/09/23 pt had PE ?? Dyslipidemia Hypertension History of cellulitis History of chemotherapy currently receiving for multiple myeloma History of DVT (deep vein thrombosis) 11/2022--on eliquis bid On anticoagulant therapy eliquis bid Dental infection current issue--on clindamycin Sleep apnea cpap Metabolic encephalopathy Elevated troponin level Hypercalcemia Acute renal failure hx Acute back pain hx Fatigue Gout Vitamin D deficiency Type 2 diabetes mellitus IDDM Tendon laceration hx--repaired Laceration of multiple sites of left hand and fingers Chest pain hx--pt denies any currently Bronchitis hx Surgical History (Updated 09/19/24 @ 12:43 by Charo Burk RN) History of colonoscopy History of tooth extraction History of surgery on arm Family History (Updated 09/19/24 @ 12:45 by Charo Burk, ESTHELA) Father Dyslipidemia Alzheimer disease Mother Diabetes Coronary heart disease Other Family history non-contributory No family history of adverse response to anesthesia Social History Smoking Status: Never smoker Second Hand Exposure: No; Do You Dip or Chew Tobacco: No; Hx Alcohol Use: No Hx Substance Use: No Preferred Language: Romansh Communication Ability: Effective 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: No Beliefs That Will Affect Care: None marital status: Single marital status details: no children Current Living Situation: Family Current Living Situation Comment: prior to original admit here, patient lived with mother current occupational status: retired Other Information That Helps Us Care for You: No Feels Safe at Home: Yes Safety Concerns: Feels Safe At This Time Assistive Devices: Hospital Bed and Walker Review of Systems Review of Systems: As per HPI Physical Exam Physical Exam: Constitutional: pt is in/out of sleep, nods head that he is in pain HEENT: Eyes were closed Resp: Decreased breath sounds at bilateral lower lobes Cardio: RRR, no murmurs noted Abd: non distended, non tender, hypoactive bowel sounds Skin: no rashes noted Psych: oriented to self, does not respond to other questions Results & Data Results & Data Vital Signs (Past 12 Hours) Vital Signs Temp Pulse Resp BP Pulse Ox O2 Del Method 10/09/24 02:33 36.5 C 112 H 18 137/79 97 Room Air 10/09/24 02:30 36.6 C 112 H 18 137/79 97 Room Air Supervising Physician Co-Signing Physician Notes I personally examined the patient and verified all wylie points of history and exam, discussed case, and agree with decision making with Dr Zapien saw twice today. both times laying on side - mostly sleeping but would occassionally moan out. once asked if he was in pain he affirmed but declined medication. later expressed not wanting medication again and denied any suffering vitals noted - laying on side and mostly nad but occassionally restless. somewhat hard to gauge mentation but does answer quetsions some, and does reliably seem to express that he does not want medication right now. comfort care - mostly appearing comfortable but does occassionally appear in pain; that said, while we'll need to continue to follow his status closely he does appear to have capacity and is declining medications - his prerogative to do so. d/w nursing when he appears in pain still would want medications offered even if he continues to refuse each time, so that he has the option in case he starts to cross into something he perceives and suffering. i also tried to educate pt on the difference between alleviating suffering and hastening - and that our goals would purely be in line with alleviating suffering. Resident Activity Tracking Resident Involvement: Resident Care Provided Care Provided: Adult [facility] Medicine
--- NOTE | 2024-10-09 19:02 | Billing Data ---
Date of Service October 09, 2024 Coding Level of Care Code 09559 SUB INP/OBS CARE MIN
[2024-10-10] MEDS: HALOPERIDOL ORAL SOLN 2 MG/ML PO PRN (00:54)
--- NOTE | 2024-10-10 07:32 | Hospitalist Progress Note ---
Date of Service October 10, 2024 Assessment & Plan (1) Multiple myeloma: (2) Cancer related pain: (3) Lytic lesion of bone on x-ray: Plan Mr. Adams is a 69 yo gentleman who [place] [facility] [place] after exhausting treatment options for multiple myeloma and subsequent lung/bone/skin manifestations. #Multiple myeloma # Cancer pain #Lytic bone lesions - Comfort measures only - Pain mgt: Tylenol 650 PRN q6h Morphine 5mg PRN q3h - for anxiety/agitation: Lorazepam 0.5mg PRN q4h haloperidol 0.5mg PRN q4h - for nausea: Zofran 4mg PRN q4h promethazine 12.5mg PRN q6h - for secretions atropine 1% PRN q1h glycopyrrolate 0.4mg PRN q4h - Pastoral care Diet: NPO Code status: DNR/DNI Admission and Anticipated Discharge Date Admission Date: October 09, 2024 Supervising Physician Co-Signing Physician Notes I personally examined the patient and verified all wylie points of history and exam, discussed case, and agree with decision making with Dr Zapien laying on side resting, breathing easily, nad. no new problems noted vitals noted - laying on side and nad, breathing unlabored no accessory muscles good effort comfort care - mostly appearing comfortable but does occasionally appear in pain; after not wanting pain medication yesterday he did opt to take a few doses through the night. yesterday d/w nursing when he appears in pain still would want medications offered even if he continues to refuse each time, so that he has the option in case he starts to cross into something he perceives and suffering. 10/09 i also tried to educate pt on the difference between alleviating suffering and hastening - and that our goals would purely be in line with alleviating suffering. rate of decline not yet clear as far as ?GIP vs SNF w hospice - continue to follow Subjective Overnight, pt received IV morphine x 2 and haloperidol x 1. Pt is laying in bed this morning asleep. Did not wake up to provider talking and performing exam. Review of Systems Review of Systems: As per HPI Physical Exam Physical Exam: Constitutional: pt is in/out of sleep, not answering questions HEENT: Eyes were closed, external ear normal, neck is supple Resp: Decreased breath sounds at bilateral lower lobes Cardio: RRR, no murmurs noted Abd: non distended, non tender, hypoactive bowel sounds Skin: no rashes noted Psych: does not respond to questions Resident Activity Tracking Resident Involvement: Resident Care Provided Care Provided: Adult Hospital Medicine
--- NOTE | 2024-10-10 13:27 | Billing Data ---
Date of Service October 10, 2024 Coding Level of Care Code 50536 SUB INP/OBS CARE
--- NOTE | 2024-10-11 07:04 | Hospitalist Progress Note ---
Date of Service October 11, 2024 Assessment & Plan (1) Multiple myeloma: (2) Cancer related pain: (3) Lytic lesion of bone on x-ray: Plan Mr. Adams is a 69 yo gentleman who was transferred from [facility] for comfort measures after exhausting treatment options for multiple myeloma and subsequent lung/bone/skin manifestations. No significant changes in medical status at this time. Awaiting possible [facility] hospice with [facility] family [facility]. #Multiple myeloma # Cancer pain #Lytic bone lesions - Comfort measures only - Pain mgt: Tylenol 650 PRN q6h Morphine 5mg PRN q3h - for anxiety/agitation: Lorazepam 0.5mg PRN q4h haloperidol 0.5mg PRN q4h - for nausea: Zofran 4mg PRN q4h promethazine 12.5mg PRN q6h - for secretions atropine 1% PRN q1h glycopyrrolate 0.4mg PRN q4h - Pastoral care Diet: NPO Code status: DNR/DNI Admission and Anticipated Discharge Date Admission Date: October 09, 2024 Supervising Physician Co-Signing Physician Notes I personally examined the patient and verified all wylie points of history and exam, discussed case, and agree with decision making with Dr Zapien laying in bed, breathing easily, nad. no new problems noted vitals noted - laying on side and nad, breathing unlabored no accessory muscles good effort comfort care - mostly appearing comfortable but does occasionally appear in pain; after not wanting pain medication yesterday he has taken a few doses. GIP eval pending. continue current care. appearing comfortable. Subjective Overnight, pt did not receive any medications Pt is laying in bed, he is awake and alert. He answers most questions with "no." Denies pain, nausea, dizziness, SOB. Review of Systems Review of Systems: As per HPI Physical Exam Physical Exam: Constitutional: pt awake, answering questions with head shaking or saying "no" HEENT: Eyes were eyes, MAHOGANY, external ear normal, neck is supple Resp: Pt decline auscultation. breath sounds are equal Cardio: Declines cardiac auscultation Abd: non distended, non tender Skin: no rashes noted Psych: A& O x 1 Resident Activity Tracking Resident Involvement: Resident Care Provided Care Provided: Adult Hospital Medicine
--- NOTE | 2024-10-11 18:31 | Billing Data ---
Date of Service October 11, 2024 Coding Level of Care Code 90197 SUB INP/OBS CARE
--- NOTE | 2024-10-12 09:56 | Hospitalist Progress Note ---
Date of Service October 12, 2024 Assessment & Plan (1) Multiple myeloma: (2) Cancer related pain: (3) Lytic lesion of bone on x-ray: Plan Mr. Adams is a 69 yo gentleman who was transferred from [facility] for comfort measures after exhausting treatment options for multiple myeloma and subsequent lung/bone/skin manifestations. No significant changes in medical status at this time. Awaiting possible [facility] hospice with [facility]. #Multiple myeloma # Cancer pain #Lytic bone lesions - Comfort measures only - Pain mgt: Tylenol 650 PRN q6h Morphine 5mg PRN q3h - for anxiety/agitation: Lorazepam 0.5mg PRN q4h haloperidol 0.5mg PRN q4h - for nausea: Zofran 4mg PRN q4h promethazine 12.5mg PRN q6h - for secretions atropine 1% PRN q1h glycopyrrolate 0.4mg PRN q4h - Pastoral care Diet: NPO Code status: DNR/DNI Admission and Anticipated Discharge Date Admission Date: October 09, 2024 Supervising Physician Co-Signing Physician Notes I personally examined the patient and verified all wylie points of history and exam, discussed case, and agree with decision making with Dr Edward laying in bed, breathing easily, nad. no new problems noted. staring at the ceiling. friend lorin at bedside, answered all questions to the best of my ability vitals noted - laying on in bed nad, breathing unlabored no accessory muscles good effort comfort care - mostly appearing comfortable, fortunately has had very little need. continue current care. case management working on potential dispo options Subjective Haroon Adams is seen resting comfortably this morning. Patient is afebrile and hemodynamically stable. Patient answers yes or no to most questions and denies SOB, abdominal pain, dizziness, fevers, and chills. Patient without complaints this AM and is anticipating d/c to appropriate hospice facility. Physical Exam Physical Exam: General: patient resting comfortably, NAD, non-toxic in appearance, answers questions appropriately. Skin: warm, dry, intact HEENT: NC/AT, anicteric sclera, conjunctiva without injection, moist mucus membranes. Heart: +S1/S2, regular, no m/r/g Lungs: equal air entry bilaterally, no rales/rhonchi/wheezes Abd: +BS, soft, NT/ND Ext: warm, no clubbing/cyanosis or edema Neuro: nonfocal, speech intact, no facial droop, moving all extremities. Results & Data Results & Data Vital Signs (Past 12 Hours) Vital Signs O2 Del Method 10/11/24 23:24 Room Air Resident Activity Tracking Resident Involvement: Resident Care Provided Care Provided: Adult Hospital Medicine
--- NOTE | 2024-10-12 14:52 | Billing Data ---
Date of Service October 12, 2024 Coding Level of Care Code 54225 SUB INP/OBS CARE
--- NOTE | 2024-10-13 11:34 | Hospitalist Progress Note ---
Date of Service October 13, 2024 Assessment & Plan (1) Multiple myeloma: (2) Cancer related pain: (3) Lytic lesion of bone on x-ray: Plan Mr. Adams is a 69 yo gentleman who was [place] [facility] [place] after exhausting treatment options for multiple myeloma and subsequent lung/bone/skin manifestations. No significant changes in medical status at this time. Awaiting possible [facility] hospice with [facility] family Hospice. #Multiple myeloma # Cancer pain #Lytic bone lesions - Comfort measures only - Pain mgt: Tylenol 650 PRN q6h Morphine 5mg PRN q3h - for anxiety/agitation: Lorazepam 0.5mg PRN q4h haloperidol 0.5mg PRN q4h - for nausea: Zofran 4mg PRN q4h promethazine 12.5mg PRN q6h - for secretions atropine 1% PRN q1h glycopyrrolate 0.4mg PRN q4h - Pastoral care Diet: NPO Code status: DNR/DNI Admission and Anticipated Discharge Date Admission Date: October 09, 2024 Supervising Physician Co-Signing Physician Notes I personally examined the patient and verified all wylie points of history and exam, discussed case, and agree with decision making with Dr Edward laying in bed, staring at the ceiling, nad vitals noted - laying on in bed nad, breathing unlabored no accessory muscles good effort comfort care -now appearing comfortable, fortunately has had very little need. continue current care. case management working on potential dispo options/end of life care options. Subjective Haroon Adams is seen resting comfortably this morning. Patient is afebrile and hemodynamically stable. Patient answers with yes, no and ok to most questions and denies SOB, abdominal pain, dizziness, fevers, and chills. Patient is not in acute pain this AM and is anticipating d/c to appropriate hospice facility. Physical Exam Physical Exam: General: patient resting comfortably, NAD, non-toxic in appearance, answers questions appropriately. Skin: warm, dry, intact HEENT: NC/AT, anicteric sclera, conjunctiva without injection, moist mucus membranes. Heart: +S1/S2, regular, no m/r/g Lungs: equal air entry bilaterally, no rales/rhonchi/wheezes Abd: +BS, soft, NT/ND Ext: warm, no clubbing/cyanosis or edema Neuro: nonfocal, speech intact, no facial droop, moving all extremities. Results & Data Results & Data Vital Signs (Past 12 Hours) Vital Signs O2 Del Method 10/13/24 07:40 Room Air Resident Activity Tracking Resident Involvement: Resident Care Provided Care Provided: Adult Hospital Medicine
--- NOTE | 2024-10-13 18:22 | Billing Data ---
Date of Service October 13, 2024 Coding Level of Care Code 05169 SUB INP/OBS CARE
--- NOTE | 2024-10-14 07:20 | Hospitalist Progress Note ---
Date of Service October 14, 2024 Assessment & Plan (1) Multiple myeloma: (2) Cancer related pain: (3) Lytic lesion of bone on x-ray: Plan Mr. Adams is a 69 yo gentleman who was transferred from [facility] [place] for comfort measures after exhausting treatment options for multiple myeloma and subsequent lung/bone/skin manifestations. No significant changes in medical status at this time. Awaiting placement to hospice facility for continued comfort care. #Multiple myeloma # Cancer pain #Lytic bone lesions - Comfort measures only - Pain mgt: Tylenol 650 PRN q6h Morphine 5mg PRN q3h - for anxiety/agitation: Lorazepam 0.5mg PRN q4h haloperidol 0.5mg PRN q4h - for nausea: Zofran 4mg PRN q4h promethazine 12.5mg PRN q6h - for secretions atropine 1% PRN q1h glycopyrrolate 0.4mg PRN q4h - Pastoral care Diet: NPO Code status: DNR/DNI Admission and Anticipated Discharge Date Admission Date: October 09, 2024 Supervising Physician Co-Signing Physician Notes I also saw the patient and confirmed wylie portions of the history and exam. I agree with the impression and plan as noted in the resident documentation above. He is sleeping but awakens to my voice. Soft spoken. I am familiar with him from the office and he does recognize/recall meeting me before. He denies pain and bothersome symptoms; he does not appear to be in distress. IMPRESSION AND PLAN Multiple myeloma Cancer Pain Patient remains comfort care only; current medication providing good palliation of symptoms Case Management with referrals to facility with hospice Subjective Haroon Adams is seen resting comfortably this morning. Patient is tachycardic but otherwise VSS and asymptomatic. Appropriate responses, voice is soft but denies being in any pain or discomfort at this time. Denies feeling hungry even thought he is on NPO order due to aspiration risk. Denies SOB, abdominal pain, dizziness, fevers, and chills. Aware we are awaiting CM input for d/c to appropriate facility to continue comfort care measures. Physical Exam Physical Exam: General: patient resting comfortably, NAD, non-toxic in appearance Skin: warm, dry, intact HEENT: NC/AT, anicteric sclera, conjunctiva without injection, moist mucus membranes. CV: tachycardic regular rhythm, no m/r/g Resp: equal air entry bilaterally, no rales/rhonchi/wheezes Abd: +BS, soft, NT/ND Ext: warm, no clubbing/cyanosis or edema Neuro: nonfocal, speech intact, no facial droop, moves all extremities on command Results & Data Results & Data Vital Signs (Past 12 Hours) Vital Signs O2 Del Method 10/13/24 20:00 Room Air Resident Activity Tracking Resident Involvement: Resident Care Provided Care Provided: Adult [facility] Medicine (1) Multiple myeloma Multiple myeloma remission status: unspecified Qualified Code(s): C90.00 - Multiple myeloma not having achieved remission
--- NOTE | 2024-10-15 07:27 | Newborn Progress Note ---
Date of Service October 15, 2024 Assessment & Plan (1) Multiple myeloma: Multiple myeloma remission status: unspecified Qualified Code(s): C90.00 - Multiple myeloma not having achieved remission (2) Cancer related pain: (3) Lytic lesion of bone on x-ray: Plan Mr. Adams is a 69 yo gentleman who was transferred from [facility] [place] for comfort measures after exhausting treatment options for multiple myeloma and subsequent lung/bone/skin manifestations. No significant changes in medical status at this time. Awaiting placement to hospice facility for continued comfort care. #Multiple myeloma # Cancer pain #Lytic bone lesions - Comfort measures only - Pain mgt: Tylenol 650 PRN q6h Morphine 5mg PRN q3h - for anxiety/agitation: Lorazepam 0.5mg PRN q4h haloperidol 0.5mg PRN q4h - for nausea: Zofran 4mg PRN q4h promethazine 12.5mg PRN q6h - for secretions atropine 1% PRN q1h glycopyrrolate 0.4mg PRN q4h - Pastoral care Diet: NPO Code status: DNR/DNI Subjective Height & Weight [place] Length (height) cm: 5 ft 2 in Current Weight: 59.5 kg Urine & Stool Stool Size: Large
--- NOTE | 2024-10-15 07:28 | Hospitalist Progress Note ---
Date of Service October 15, 2024 Assessment & Plan (1) Multiple myeloma: (2) Cancer related pain: (3) Lytic lesion of bone on x-ray: Plan Mr. Adams is a 69 yo gentleman who [place] [facility] [place] after exhausting treatment options for multiple myeloma and subsequent lung/bone/skin manifestations. No significant changes in medical status at this time. Awaiting placement to hospice facility for continued comfort care CM saying the potential facilities will cost in the $300-400s per day, case management will speak with nephew Miguel Adams as he may know about pt's finances. #Multiple myeloma #Cancer pain #Lytic bone lesions - Comfort measures only - Pain mgt: Tylenol 650 PRN q6h Morphine 5mg PRN q3h - for anxiety/agitation: Lorazepam 0.5mg PRN q4h haloperidol 0.5mg PRN q4h - for nausea: Zofran 4mg PRN q4h promethazine 12.5mg PRN q6h - for secretions atropine 1% PRN q1h glycopyrrolate 0.4mg PRN q4h - Pastoral care Diet: NPO for meals but may have comfort foods Code status: DNR/DNI Admission and Anticipated Discharge Date Admission Date: October 09, 2024 Supervising Physician Co-Signing Physician Notes I also saw the patient and confirmed wylie portions of the history and exam. I agree with the impression and plan as noted in the resident documentation above. Reviewed case with nursing - they medicated with dose of Roxanol yesterday for some pain, but otherwise, no obvious s/s of pain. Awake. Voice is weak. Denies pain. CV regular, rate mid 70s upon auscultation. Respirations non labored IMPRESSION AND PLAN Multiple myeloma Cancer Pain Patient remains comfort care only; current medication providing good palliation of symptoms Case Management with referrals to facility with hospice Subjective Haroon Adams is seen resting comfortably in bed this morning. Patient is tachycardic but otherwise VSS and asymptomatic. Appropriate responses, voice is soft but denies being in any pain or discomfort at this time. Endorses feeling hungry, friend Julio says he likes pudding. Denies SOB, abdominal pain, dizziness, fevers, and chills. Aware we are awaiting CM input for d/c to appropriate facility to continue comfort care measures. Physical Exam Physical Exam: General: patient resting comfortably, NAD, non-toxic in appearance Skin: warm, dry, intact HEENT: NC/AT, anicteric sclera, conjunctiva without injection, moist mucus membranes. CV: tachycardic regular rhythm, no m/r/g Resp: equal air entry bilaterally, no rales/rhonchi/wheezes GI/Abd: +BS, soft, NT/ND Ext: warm, no clubbing/cyanosis or edema Neuro: nonfocal, speech intact, no facial droop, moves UE on command, LE slower and smaller movements Results & Data Results & Data Vital Signs (Past 12 Hours) Vital Signs O2 Del Method 10/14/24 20:00 Room Air Resident Activity Tracking Resident Involvement: Resident Care Provided Care Provided: Adult [facility] Medicine (1) Multiple myeloma Multiple myeloma remission status: unspecified Qualified Code(s): C90.00 - Multiple myeloma not having achieved remission
--- NOTE | 2024-10-16 07:07 | Hospitalist Progress Note ---
Date of Service October 16, 2024 Assessment & Plan (1) Multiple myeloma: (2) Cancer related pain: (3) Lytic lesion of bone on x-ray: Plan Mr. Adams is a 69 yo gentleman who was transferred from [facility] [place] for comfort measures after exhausting treatment options for multiple myeloma and subsequent lung/bone/skin manifestations. No significant changes in medical status at this time. Awaiting placement to hospice facility for continued comfort care CM saying the potential facilities will cost in the $300-400s per day. Corey Rivera does not know about pt's finances. #Multiple myeloma #Cancer pain #Lytic bone lesions - Comfort measures only - Pain mgt: Tylenol 650 PRN q6h Morphine 5mg PRN q3h - for anxiety/agitation: Lorazepam 0.5mg PRN q4h haloperidol 0.5mg PRN q4h - for nausea: Zofran 4mg PRN q4h promethazine 12.5mg PRN q6h - for secretions atropine 1% PRN q1h glycopyrrolate 0.4mg PRN q4h - Pastoral care Diet: NPO for meals but may have comfort foods Code status: DNR/DNI Admission and Anticipated Discharge Date Admission Date: October 09, 2024 Supervising Physician Co-Signing Physician Notes I also saw the patient and confirmed wylie portions of the history and exam. I agree with the impression and plan as noted in the resident documentation above. Friend at bedside. Patient notes epigastric and abdominal pain today. Awake. Voice is weak. CV regular, rate mid 80s upon auscultation. Respirations non labored IMPRESSION AND PLAN Multiple myeloma Cancer Pain Patient remains comfort care only; will have nursing provide Roxanol dose now If continues, will consider scheduled dosing Case Management with referrals to facility with hospice Subjective Justino was seen resting comfortably in bed this morning. Patient is tachycardic but otherwise VSS and asymptomatic. Appropriate responses, voice is soft, nods yes to having some belly pain. Has been eating pudding as requested day prior. Friend Ori is in room, aware we are awaiting further CM correspondence for d/c to appropriate facility to continue comfort care measures Physical Exam Physical Exam: General: patient resting in bed, NAD, non-toxic in appearance Skin: warm, dry, intact HEENT: NC/AT, anicteric sclera, conjunctiva without injection, moist mucus membranes. CV: tachycardic regular rhythm, no m/r/g Resp: equal air entry bilaterally, no rales/rhonchi/wheezes GI/Abd: +BS, soft, winces with palpation of abdomen MSK: smooth bony mass of R superior chest wall, nontender to palpation Ext: warm, no clubbing/cyanosis or edema Neuro: nonfocal,speech intact but soft and at times hard to hear, no facial droop, moves UE on command, LE slower and smaller movements Resident Activity Tracking Resident Involvement: Resident Care Provided Care Provided: Adult Hospital Medicine (1) Multiple myeloma Multiple myeloma remission status: unspecified Qualified Code(s): C90.00 - Multiple myeloma not having achieved remission
--- NOTE | 2024-10-17 06:54 | Hospitalist Progress Note ---
Date of Service October 17, 2024 Assessment & Plan (1) Multiple myeloma: (2) Cancer related pain: (3) Lytic lesion of bone on x-ray: Plan Mr. Adams is a 69 yo gentleman who was transferred from [facility] [place] for comfort measures after exhausting treatment options for multiple myeloma and subsequent lung/bone/skin manifestations. No significant changes in medical status at this time. Awaiting placement to hospice facility for continued comfort care CM saying the potential facilities will cost in the $300-400s per day. Nephew Miguel does not know about pt's finances, he and friend Julio cannot help fund placement for patient. #Multiple myeloma #Cancer pain #Lytic bone lesions - Comfort measures only - Pain mgt: Tylenol 650 PRN q6h Morphine 5mg PRN q3h - for anxiety/agitation: Lorazepam 0.5mg PRN q4h haloperidol 0.5mg PRN q4h - for nausea: Zofran 4mg PRN q4h promethazine 12.5mg PRN q6h - for secretions atropine 1% PRN q1h glycopyrrolate 0.4mg PRN q4h - Pastoral care Diet: NPO for meals but may have comfort foods Code status: DNR/DNI Admission and Anticipated Discharge Date Admission Date: October 09, 2024 Supervising Physician Co-Signing Physician Notes I also saw the patient and confirmed wylie portions of the history and exam. I agree with the impression and plan as noted in the resident documentation above. Friend again at bedside. No pain at present but was medicated earlier. He is a little more awake during my visit today. [place] sherbet offered and this made him smile. Awake. Voice is still weak. CV regular, rate around 100. Soft tissue mass right upper ACW as previous, non tender Respirations non labored IMPRESSION AND PLAN Multiple myeloma Cancer Pain Patient remains comfort care only; pain seems well controlled Made patient aware of comfort options readily available on the floor Case Management with referrals to facility with hospice Subjective Justino was seen resting comfortably in bed this morning. Patient is tachycardic but otherwise VSS and asymptomatic. Denies being in any pain this morning, though friend Julio states pt mentioned he was having some chest pain this morning. Upon asking patient, he denied having any chest pain nor abdominal pain. Still enjoying pudding daily. Discussed with Julio that CM will be likely unable to find a good outside placement for him at this time. Physical Exam Physical Exam: General: patient resting in bed, NAD, non-toxic in appearance Skin: warm, dry, intact HEENT: NC/AT, anicteric sclera, conjunctiva without injection, moist mucus membranes. CV: tachycardic regular rhythm, no m/r/g Resp: equal air entry bilaterally, no rales/rhonchi/wheezes GI/Abd: +BS, soft, winces with palpation of abdomen MSK: smooth mass of R superior chest wall, nontender to palpation; able to raise him arms straight out in front of him better than in prior days Ext: warm, no clubbing/cyanosis or edema Neuro: speech intact but soft and at times muffled, no facial droop, moves UE on command, LE slower and smaller movements, wiggles fingers and toes on command Results & Data Results & Data Vital Signs (Past 12 Hours) Vital Signs O2 Del Method 10/16/24 21:35 Room Air Resident Activity Tracking Resident Involvement: Resident Care Provided Care Provided: Adult Hospital Medicine (1) Multiple myeloma Multiple myeloma remission status: unspecified Qualified Code(s): C90.00 - Multiple myeloma not having achieved remission
--- NOTE | 2024-10-18 06:49 | Hospitalist Progress Note ---
Date of Service October 18, 2024 Assessment & Plan (1) Multiple myeloma: (2) Cancer related pain: (3) Lytic lesion of bone on x-ray: Plan Mr. Adams is a 69 yo gentleman who was transferred from [facility] [place] for comfort measures after exhausting treatment options for multiple myeloma and subsequent lung/bone/skin manifestations. No significant changes in medical status at this time. Awaiting placement to hospice facility for continued comfort care CM saying the potential facilities will cost in the $300-400s per day. Nephgarth Rivera does not know about pt's finances, he and friend Julio cannot help fund placement for patient. #Multiple myeloma #Cancer pain #Lytic bone lesions - Comfort measures only - Pain mgt: Tylenol 650 PRN q6h Morphine 5mg PRN q3h - for anxiety/agitation: Lorazepam 0.5mg PRN q4h haloperidol 0.5mg PRN q4h - for nausea: Zofran 4mg PRN q4h promethazine 12.5mg PRN q6h - for secretions atropine 1% PRN q1h glycopyrrolate 0.4mg PRN q4h - Pastoral care Diet: NPO for meals but may have comfort foods Code status: DNR/DNI Admission and Anticipated Discharge Date Admission Date: October 09, 2024 Supervising Physician Co-Signing Physician Notes I personally examined the patient and verified wylie points of history and exam, discussed case, and agree with decision making and plan documented by Dr. Mckee. Patient resting comfortably in bed, denies pain or needs. Friend Julio at bedside. 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 Subjective Justino was seen resting comfortably in bed this morning. Patient is tachycardic but otherwise VSS and asymptomatic. Denies being in any pain this morning, saying "so far so good" in response to asking how he's feeling. Still enjoying pudding daily, just drank most of a small bottle of apple juice, drinking water from straw as well. Friend present in room again, denies any concerns of pain or discomfort from Justino at this time. Physical Exam Physical Exam: General: patient resting in bed, NAD, non-toxic in appearance Skin: warm, dry, intact HEENT: NC/AT, anicteric sclera, conjunctiva without injection, moist mucus membranes. CV: tachycardic regular rhythm, no m/r/g Resp: equal air entry bilaterally, no rales/rhonchi/wheezes GI/Abd: +BS, soft, abdomen nontender to palpation MSK: smooth mass of R superior chest wall, nontender to palpation; able to raise/move arms and move legs Ext: warm, no clubbing/cyanosis or edema Neuro: speech intact but soft and at times muffled, no facial droop, moves UE on command, LE slower and smaller movements, wiggles fingers and toes on command Results & Data Results & Data Vital Signs (Past 12 Hours) Vital Signs O2 Del Method 10/17/24 21:30 Room Air Resident Activity Tracking Resident Involvement: Resident Care Provided Care Provided: Adult Hospital Medicine (1) Multiple myeloma Multiple myeloma remission status: unspecified Qualified Code(s): C90.00 - Multiple myeloma not having achieved remission
--- NOTE | 2024-10-19 07:18 | Hospitalist Progress Note ---
Date of Service October 19, 2024 Assessment & Plan (1) Multiple myeloma: (2) Cancer related pain: (3) Lytic lesion of bone on x-ray: Plan Mr. Adams is a 69 yo gentleman who was transferred from [facility] [place] for comfort measures after exhausting treatment options for multiple myeloma and subsequent lung/bone/skin manifestations. No significant changes in medical status at this time. Awaiting placement to hospice facility for continued comfort care CM saying the potential facilities will cost in the $300-400s per day. Nephew Miguel does not know about pt's finances, he and friend Julio cannot help fund placement for patient. Plan is to stay here for the time being. #Multiple myeloma #Cancer pain #Lytic bone lesions - Comfort measures only - Pain mgt: Tylenol 650 PRN q6h Morphine 5mg PRN q3h - for anxiety/agitation: Lorazepam 0.5mg PRN q4h haloperidol 0.5mg PRN q4h - for nausea: Zofran 4mg PRN q4h promethazine 12.5mg PRN q6h - for secretions atropine 1% PRN q1h glycopyrrolate 0.4mg PRN q4h - Pastoral care Diet: NPO for meals but may have comfort foods Code status: DNR/DNI Admission and Anticipated Discharge Date Admission Date: October 09, 2024 Supervising Physician Co-Signing Physician Notes I personally examined the patient and verified wylie points of history and exam, discussed case, and agree with decision making and plan documented by Dr. Mckee. Patient resting in bed, endorsed some swelling of right upper extremity and discomfort in hip. Reviewed likely dependant edema due to immobility and reviewed gentle effleurage. Encouraged pain medications for discomfort. Friend Julio at bedside. Patient denies additional needs. 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 Subjective Justino was seen resting comfortably in bed this morning. Patient is tachycardic but otherwise VSS and asymptomatic. Endorses having some left hip pain this morning, but he was also lying down on his left hip which could be why it's bothering him. Able to lift up his arms against gravity, wiggles fingers on command. Moves legs and wiggles toes on command as well. Has most of a bottle of chocolate milk this morning, states he likes it. Friend Julio present in room again, denies having any questions or concerns at this time. Physical Exam Physical Exam: General: patient resting in bed, NAD, non-toxic in appearance Skin: warm, dry, intact HEENT: NC/AT, anicteric sclera, conjunctiva without injection, moist mucus membranes. CV: tachycardic regular rhythm, no m/r/g Resp: equal air entry bilaterally, no rales/rhonchi/wheezes GI/Abd: +BS, soft, abdomen nontender to palpation MSK: smooth mass of R superior chest wall, nontender to palpation; able to raise/move arms and move legs Ext: warm, no clubbing/cyanosis or edema Neuro: speech intact but soft and at times muffled, no facial droop, moves UE and LE on command, wiggles fingers and toes on command Resident Activity Tracking Resident Involvement: Resident Care Provided Care Provided: Adult [facility] Medicine (1) Multiple myeloma Multiple myeloma remission status: unspecified Qualified Code(s): C90.00 - Multiple myeloma not having achieved remission
--- NOTE | 2024-10-20 16:49 | Hospitalist Progress Note ---
Date of Service October 20, 2024 Assessment & Plan (1) Multiple myeloma: (2) Cancer related pain: (3) Lytic lesion of bone on x-ray: Plan Mr. Adams is a 69 yo gentleman who [place] [facility] [place] exhausting treatment options for multiple myeloma and subsequent lung/bone/skin manifestations. No significant changes in medical status at this time. Awaiting placement to hospice facility for continued comfort care CM saying the potential facilities will cost in the $300-400s per day. Nephew Miguel does not know about pt's finances, he and friend Julio cannot help fund placement for patient. Plan is to stay here for the time being. #Multiple myeloma #Cancer pain #Lytic bone lesions - Comfort measures only - Pain mgt: Tylenol 650 PRN q6h Morphine 5mg PRN q3h - for anxiety/agitation: Lorazepam 0.5mg PRN q4h haloperidol 0.5mg PRN q4h - for nausea: Zofran 4mg PRN q4h promethazine 12.5mg PRN q6h - for secretions atropine 1% PRN q1h glycopyrrolate 0.4mg PRN q4h - Pastoral care -family at bedside and are updated. Diet: NPO for meals but may have comfort foods Code status: DNR/DNI Admission and Anticipated Discharge Date Admission Date: October 09, 2024 Subjective Patient is comfortable. Physical Exam Physical Exam: General: patient resting in bed, NAD, non-toxic in appearance Skin: warm, dry, intact HEENT: NC/AT Ext: warm, no clubbing/cyanosis or edema Neuro: speech intact but soft and at times muffled, no facial droop, moves UE and LE on command, wiggles fingers and toes on command Results & Data Results & Data Vital Signs (Past 12 Hours) Vital Signs O2 Del Method 10/20/24 07:50 Room Air PG Care Time/CCT Total # of Minutes Spent Total Time Spent with Patient: Total time spent is greater than 50% in coordination of care (as documented) at patient's floor/unit and/or counseling patient: Coding Level of Care Code 46960 SUB INP/OBS CARE 2/35MIN Diagnoses Multiple myeloma, remission status unspecified C90.00 Multiple myeloma remission status: unspecified Cancer related pain G89.3 Lytic lesion of bone on x-ray M89.9 (1) Multiple myeloma Multiple myeloma remission status: unspecified Qualified Code(s): C90.00 - Multiple myeloma not having achieved remission
--- NOTE | 2024-10-21 07:18 | Hospitalist Progress Note ---
Date of Service October 21, 2024 Assessment & Plan (1) Multiple myeloma: (2) Cancer related pain: (3) Lytic lesion of bone on x-ray: Plan Mr. Adams is a 69 yo gentleman who was transferred from [facility] [place] measures after exhausting treatment options for multiple myeloma and subsequent lung/bone/skin manifestations. No significant changes in medical status at this time. Awaiting placement to hospice facility for continued comfort care CM saying the potential facilities will cost in the $300-400s per day. Nephew Miguel does not know about pt's finances, he and friend Julio cannot help fund placement for patient. Plan is to stay here for the time being. #Multiple myeloma #Cancer pain #Lytic bone lesions - Comfort measures only - Pain mgt: Tylenol 650 PRN q6h Morphine 5mg PRN q3h - for anxiety/agitation: Lorazepam 0.5mg PRN q4h haloperidol 0.5mg PRN q4h - for nausea: Zofran 4mg PRN q4h promethazine 12.5mg PRN q6h - for secretions atropine 1% PRN q1h glycopyrrolate 0.4mg PRN q4h - Pastoral care Diet: NPO for meals but may have comfort foods Code status: DNR/DNI Admission and Anticipated Discharge Date Admission Date: October 09, 2024 Supervising Physician Co-Signing Physician Notes I personally examined the patient and verified all wylie points of history and exam, discussed case, and agree with decision making with Dr Head awake, appearing comfortable, voices no complaints. friend julio in the room vitals noted, fatigued but communicative, nad. breathing unlabored no accessory muscles good effort skin no rashes no pallor or icterus comfort care continues, appearing comfortable. does not yet have safe dispo outside of hospital - continue current care. otherwise as above Subjective Patient able to verbalize lack of any chest, abd, or leg pain. Friend Julio is at bedside, says pt appears comfortable. Review of Systems Review of Systems: As per HPI Physical Exam Physical Exam: General: patient resting comfortably in bed, NAD Skin: warm, dry, intact HEENT: NC/AT Ext: warm, no clubbing/cyanosis or edema Neuro: speech intact, no facial droop, able to move extremities spontaneously on command Results & Data Results & Data Vital Signs (Past 12 Hours) Vital Signs O2 Del Method 10/20/24 19:20 Room Air Resident Activity Tracking Resident Involvement: Resident Care Provided Care Provided: Adult Hospital Medicine (1) Multiple myeloma Multiple myeloma remission status: unspecified Qualified Code(s): C90.00 - Multiple myeloma not having achieved remission
--- NOTE | 2024-10-21 13:05 | Billing Data ---
Date of Service October 21, 2024 Coding Level of Care Code 04613 SUB INP/OBS CARE
--- NOTE | 2024-10-22 06:57 | Hospitalist Progress Note ---
Date of Service October 22, 2024 Assessment & Plan (1) Multiple myeloma: (2) Cancer related pain: (3) Lytic lesion of bone on x-ray: Plan Mr. Adams is a 69 yo gentleman who [place] [facility] [place] exhausting treatment options for multiple myeloma and subsequent lung/bone/skin manifestations. No significant changes in medical status at this time. Awaiting placement to hospice facility for continued comfort care CM saying the potential facilities will cost in the $300-400s per day. Nephew Miguel does not know about pt's finances, he and friend Julio cannot help fund placement for patient. Plan is to stay here for the time being. #Multiple myeloma #Cancer pain #Lytic bone lesions - Comfort measures only - Pain mgt: Tylenol 650 PRN q6h Morphine 5mg PRN q3h - for anxiety/agitation: Lorazepam 0.5mg PRN q4h haloperidol 0.5mg PRN q4h - for nausea: Zofran 4mg PRN q4h promethazine 12.5mg PRN q6h - for secretions atropine 1% PRN q1h glycopyrrolate 0.4mg PRN q4h - Pastoral care Diet: NPO for meals but may have comfort foods Code status: DNR/DNI Admission and Anticipated Discharge Date Admission Date: October 09, 2024 Supervising Physician Co-Signing Physician Notes I personally examined the patient and verified all wylie points of history and exam, discussed case, and agree with decision making with Dr Head awake, feeling ok overall. laying in bed. friend at bedside. vitals noted, fatigued but communicative, nad. breathing unlabored no accessory muscles good effort skin no rashes no pallor or icterus comfort care continues, appearing comfortable. end stage malignancy but acute situation has stabilized. does not yet have safe dispo outside of hospital - continue current care. otherwise as above Subjective No meaningful HPI from patient; does verbalize lack of CP, SOB, or abd pain. Review of Systems Review of Systems: As per HPI Physical Exam Physical Exam: General: patient resting comfortably in bed, NAD Skin: warm, dry, intact HEENT: NC/AT Ext: warm, no clubbing/cyanosis or edema Neuro: follows commands, speech intact but asthenic voice, no facial droop, able to move extremities spontaneously Results & Data Results & Data Vital Signs (Past 12 Hours) Vital Signs O2 Del Method 10/21/24 19:30 Room Air Resident Activity Tracking Resident Involvement: Resident Care Provided Care Provided: Adult Hospital Medicine (1) Multiple myeloma Multiple myeloma remission status: unspecified Qualified Code(s): C90.00 - Multiple myeloma not having achieved remission
--- NOTE | 2024-10-22 12:10 | Billing Data ---
Date of Service October 22, 2024 Coding Level of Care Code 30708 SUB INP/OBS CARE
--- NOTE | 2024-10-23 06:50 | Hospitalist Progress Note ---
Date of Service October 23, 2024 Assessment & Plan (1) Multiple myeloma: (2) Cancer related pain: (3) Lytic lesion of bone on x-ray: Plan Mr. Adams is a 69 yo gentleman who was transferred from [facility] [place] for comfort measures after exhausting treatment options for multiple myeloma and subsequent lung/bone/skin manifestations. No significant changes in medical status at this time. Awaiting placement to hospice facility for continued comfort care CM saying the potential facilities will cost in the $300-400s per day. Nephew Miguel does not know about pt's finances, he and friend Julio cannot help fund placement for patient. Plan is to stay here for the time being. #Multiple myeloma #Cancer pain #Lytic bone lesions - Comfort measures only - Pain mgt: Tylenol 650 PRN q6h Morphine 5mg PRN q3h - for anxiety/agitation: Lorazepam 0.5mg PRN q4h haloperidol 0.5mg PRN q4h - for nausea: Zofran 4mg PRN q4h promethazine 12.5mg PRN q6h - for secretions atropine 1% PRN q1h glycopyrrolate 0.4mg PRN q4h - Pastoral care Diet: NPO for meals but may have comfort foods Code status: DNR/DNI Admission and Anticipated Discharge Date Admission Date: October 09, 2024 Supervising Physician Co-Signing Physician Notes I personally examined the patient and verified all wylie points of history and exam, discussed case, and agree with decision making with Dr Head awake, less talkative but not really seeming to be in painjulio at bedside. vitals noted, fatigued, nad. breathing unlabored no accessory muscles good effort skin no rashes no pallor or icterus comfort care continues, appearing comfortable. end stage malignancy but acute situation has stabilized. does not yet have safe dispo outside of hospital, case management working on options - continue current care. otherwise as above Subjective No meaningful HPI from patient; does verbalize lack of CP, SOB, or abd pain. Review of Systems Review of Systems: As per HPI Physical Exam Physical Exam: General: patient resting comfortably in bed, NAD Skin: warm, dry, intact HEENT: NC/AT Ext: warm, no clubbing/cyanosis or edema Neuro: follows commands, speech intact but asthenic voice, no facial droop, able to move extremities spontaneously Results & Data Results & Data Vital Signs (Past 12 Hours) Vital Signs O2 Del Method 10/22/24 19:32 Room Air Resident Activity Tracking Resident Involvement: Resident Care Provided Care Provided: Adult Hospital Medicine (1) Multiple myeloma Multiple myeloma remission status: unspecified Qualified Code(s): C90.00 - Multiple myeloma not having achieved remission
--- NOTE | 2024-10-23 13:22 | Billing Data ---
Date of Service October 23, 2024 Coding Level of Care Code 42585 SUB INP/OBS CARE
--- NOTE | 2024-10-24 07:23 | Hospitalist Progress Note ---
Date of Service October 24, 2024 Assessment & Plan (1) Multiple myeloma: (2) Cancer related pain: (3) Lytic lesion of bone on x-ray: Plan Mr. Adams is a 69 yo gentleman who was [place] [facility] [place] after exhausting treatment options for multiple myeloma and subsequent lung/bone/skin manifestations. No significant changes in medical status at this time. Awaiting placement to hospice facility for continued comfort care CM saying the potential facilities will cost in the $300-400s per day. Nephew Miguel does not know about pt's finances, he and friend Julio cannot help fund placement for patient. Plan is to stay here for the time being. #Multiple myeloma #Cancer pain #Lytic bone lesions - Comfort measures only - Pain mgt: Tylenol 650 PRN q6h Morphine 5mg PRN q3h - for anxiety/agitation: Lorazepam 0.5mg PRN q4h haloperidol 0.5mg PRN q4h - for nausea: Zofran 4mg PRN q4h promethazine 12.5mg PRN q6h - for secretions atropine 1% PRN q1h glycopyrrolate 0.4mg PRN q4h - Pastoral care Diet: NPO for meals but may have comfort foods Code status: DNR/DNI Admission and Anticipated Discharge Date Admission Date: October 09, 2024 Supervising Physician Co-Signing Physician Notes I personally examined the patient and verified all wylie points of history and exam, discussed case, and agree with decision making with Dr Head asleep, appearing comfortable vitals noted, sleeping comfortably, nad. breathing unlabored no accessory muscles good effort skin no rashes no pallor or icterus comfort care continues, appearing comfortable. end stage malignancy, but acute situation has stabilized. does not yet have safe disposition outside of hospital, case management working on options - continue current care. otherwise as above Subjective Says today is "so far, so good!" Denies SOB, significant pain, or other discomfort. Review of Systems Review of Systems: As per HPI Physical Exam Physical Exam: General: patient resting comfortably in bed, NAD Skin: warm, dry, intact HEENT: NC/AT Ext: warm, no clubbing/cyanosis or edema Neuro: A&O, follows commands, speech intact but asthenic voice, no facial droop, able to move extremities spontaneously Results & Data Results & Data Vital Signs (Past 12 Hours) Vital Signs O2 Del Method 10/23/24 19:30 Room Air Resident Activity Tracking Resident Involvement: Resident Care Provided Care Provided: Adult Hospital Medicine (1) Multiple myeloma Multiple myeloma remission status: unspecified Qualified Code(s): C90.00 - Multiple myeloma not having achieved remission
--- NOTE | 2024-10-24 13:23 | Billing Data ---
Date of Service October 24, 2024 Coding Level of Care Code 63398 SUB INP/OBS CARE
--- NOTE | 2024-10-25 07:09 | Hospitalist Progress Note ---
Date of Service October 25, 2024 Assessment & Plan (1) Multiple myeloma: (2) Cancer related pain: (3) Lytic lesion of bone on x-ray: Plan Mr. Adams is a 69 yo gentleman who was transferred from [facility] [place] for comfort measures after exhausting treatment options for multiple myeloma and subsequent lung/bone/skin manifestations. No significant changes in medical status at this time. Awaiting placement to hospice facility for continued comfort care CM saying the potential facilities will cost in the $300-400s per day. Nephew Miguel does not know about pt's finances, he and friend Julio cannot help fund placement for patient. Plan is to stay here for the time being. #Multiple myeloma #Cancer pain #Lytic bone lesions - Comfort measures only - Pain mgt: Tylenol 650 PRN q6h Morphine 5mg PRN q3h - for anxiety/agitation: Lorazepam 0.5mg PRN q4h haloperidol 0.5mg PRN q4h - for nausea: Zofran 4mg PRN q4h promethazine 12.5mg PRN q6h - for secretions atropine 1% PRN q1h glycopyrrolate 0.4mg PRN q4h - Pastoral care Diet: NPO for meals but may have comfort foods Code status: DNR/DNI Admission and Anticipated Discharge Date Admission Date: October 09, 2024 Supervising Physician Co-Signing Physician Notes I personally examined the patient and verified all wylie points of history and exam, discussed case, and agree with decision making with Dr Head resting in bed, has no complaints, julio at bedside, just jokingly asks if i happen to have a personal pepperoni pizza with me. does note that pt has been craving orange soda. vitals noted, sleeping comfortably, nad. breathing unlabored no accessory muscles good effort skin no rashes no pallor or icterus comfort care continues, appearing comfortable. end stage malignancy, but acute situation has stabilized. does not yet have safe disposition outside of hospital, case management working on options - continue current care. appreciate julio being present so much/so often for pt. otherwise as above Subjective Friend Julio is at bedside. Pt denies SOB, significant pain, or other discomfort. Only complaint/request is moisturizer for dry lips Review of Systems Review of Systems: As per HPI Physical Exam Physical Exam: General: patient resting comfortably in bed, NAD Skin: warm, dry, intact HEENT: NC/AT Ext: warm, no clubbing/cyanosis or edema Neuro: A&O, follows commands, speech intact but asthenic voice, no facial droop, able to move extremities spontaneously Results & Data Results & Data Vital Signs (Past 12 Hours) Vital Signs O2 Del Method 10/24/24 19:15 Room Air Resident Activity Tracking Resident Involvement: Resident Care Provided Care Provided: Adult Hospital Medicine (1) Multiple myeloma Multiple myeloma remission status: unspecified Qualified Code(s): C90.00 - Multiple myeloma not having achieved remission
--- NOTE | 2024-10-25 13:05 | Billing Data ---
Date of Service October 25, 2024 Coding Level of Care Code 93112 SUB INP/OBS CARE
--- NOTE | 2024-10-25 13:06 | Billing Data ---
Date of Service October 25, 2024 Coding Level of Care Code 31649 SUB INP/OBS CARE
--- NOTE | 2024-10-26 06:47 | Hospitalist Progress Note ---
Date of Service October 26, 2024 Assessment & Plan (1) Multiple myeloma: (2) Cancer related pain: (3) Lytic lesion of bone on x-ray: Plan Mr. Adams is a 69 yo gentleman who was [place] [facility] [place] exhausting treatment options for multiple myeloma and subsequent lung/bone/skin manifestations. No significant changes in medical status at this time. Awaiting placement to hospice facility for continued comfort care CM saying the potential facilities will cost in the $300-400s per day. Nephgarth Rivera does not know about pt's finances, he and friend Julio cannot help fund placement for patient. Plan is to stay here for the time being. #Multiple myeloma #Cancer pain #Lytic bone lesions - Comfort measures only - Pain mgt: Tylenol 650 PRN q6h Morphine 5mg PRN q3h - for anxiety/agitation: Lorazepam 0.5mg PRN q4h haloperidol 0.5mg PRN q4h - for nausea: Zofran 4mg PRN q4h promethazine 12.5mg PRN q6h - for secretions atropine 1% PRN q1h glycopyrrolate 0.4mg PRN q4h - Pastoral care Diet: NPO for meals but may have comfort foods Code status: DNR/DNI Admission and Anticipated Discharge Date Admission Date: October 09, 2024 Supervising Physician Co-Signing Physician Notes I personally examined the patient and verified all wylie points of history and exam, discussed case, and agree with decision making with Dr Head pt denies complaints although more withdrawn today and not communicating much. friend julio brought orange soda that pt really enjoyed. vitals noted, sleeping comfortably, nad. breathing unlabored no accessory muscles good effort skin no rashes no pallor or icterus comfort care continues, appearing comfortable. end stage malignancy, but acute situation has stabilized. does not yet have safe disposition outside of hospital, case management working on options - continue current care. appreciate Julio being present so much/so often for pt. no changes today otherwise as above Subjective Pt denies SOB, significant pain, or other discomfort. Friend Julio is at bedside, reports pt had very loose BM today Review of Systems Review of Systems: As per HPI Physical Exam Physical Exam: General: patient resting comfortably in bed, NAD Skin: warm, dry, intact HEENT: NC/AT Ext: warm, no clubbing/cyanosis or edema Neuro: A&O, follows commands, speech intact but asthenic voice, no facial droop, able to move extremities spontaneously Results & Data Results & Data Vital Signs (Past 12 Hours) Vital Signs O2 Del Method 10/25/24 19:37 Room Air Resident Activity Tracking Resident Involvement: Resident Care Provided Care Provided: Adult Hospital Medicine (1) Multiple myeloma Multiple myeloma remission status: unspecified Qualified Code(s): C90.00 - Multiple myeloma not having achieved remission
[2024-10-26] MEDS: MoRPHine SULFATE 10 MG/0.5 ML UDP PO PRN (11:24)
--- NOTE | 2024-10-26 14:57 | Billing Data ---
Date of Service October 26, 2024 Coding Level of Care Code 99775 SUB INP/OBS CARE
--- NOTE | 2024-10-27 09:14 | Hospitalist Progress Note ---
Date of Service October 27, 2024 Assessment & Plan (1) Multiple myeloma: (2) Cancer related pain: (3) Lytic lesion of bone on x-ray: Plan Mr. Adams is a 69 yo gentleman who was transferred from [facility] [place] for comfort measures after exhausting treatment options for multiple myeloma and subsequent lung/bone/skin manifestations. No significant changes in medical status at this time. Awaiting placement to hospice facility for continued comfort care CM saying the potential facilities will cost in the $300-400s per day. Nephew Miguel does not know about pt's finances, he and friend Julio cannot help fund placement for patient. Plan is to stay here for the time being. #Multiple myeloma #Cancer pain #Lytic bone lesions - Comfort measures only - Pain mgt: Tylenol 650 PRN q6h Morphine 5mg PRN q3h - for anxiety/agitation: Lorazepam 0.5mg PRN q4h haloperidol 0.5mg PRN q4h - for nausea: Zofran 4mg PRN q4h promethazine 12.5mg PRN q6h - for secretions atropine 1% PRN q1h glycopyrrolate 0.4mg PRN q4h - Pastoral care Diet: NPO for meals but may have comfort foods Code status: DNR/DNI Admission and Anticipated Discharge Date Admission Date: October 09, 2024 Supervising Physician Co-Signing Physician Notes chart reviewed, case d/w P ANTONIO Sandhu - as above. Subjective Mr. Hammond is resting comfortably in bed with his friend (Julio) at bedside. He reports that his pain is a 5/10 at present. It is mainly located between his shoulder blades and upper back. Patient reports that he slept well last night. He has been eating pudding, and drinking without difficulty. No chest pain, abdominal pain, or headache. He reports no new complaints at this time. ROS: Patient endorses back pain. Patient denies fever, chills, night sweats, dizziness, lightheadedness, chest pain, chest palpitations, abdominal pain, N/V/D, changes in urinary bowel habits, or numbness tingling in arms or legs. Review of Systems Review of Systems: See HPI above Physical Exam Physical Exam: General: no acute distress; friend at bedside; non-toxic appearing; cachectic; SpO2 97% on RA HEENT: normocephalic, atraumatic; vision and hearing intact Neck: supple; no lymphadenopathy; trachea midline Skin: warm, dry without signs of tenting; no cyanosis; no rashes, bruising, lesions, or erythema noted CV: chest wall NTP; RRR; S1/S2 normal; no murmurs/rubs/gallops; pulses intact and symmetric at radial, DP, and PT Lungs: no acute respiratory distress; symmetrical chest wall expansion; clear breath sounds across all lung lopez w/o adventitious sounds; no wheezing ABD: Soft, NTP; BS present; no rebound/guarding; no distention Back: Upper and lower spine are NTP; no signs of rashes or bruising MSK: no tics or fasciculations; atrophy of the muscles; no edema noted in the LEs b/l, nonerythematous Neuro: A&Ox3; normal mood and affect; fluent speech; no focal deficits; sensation intact and symmetric in lower extremity bilaterally PG Care Time/CCT Total # of Minutes Spent Total Time Spent with Patient: Total time spent is greater than 50% in coordination of care (as documented) at patient's floor/unit and/or counseling patient: Coding [place] [id number] SUB INP/OBS CARE 25MIN Patient Type Established History Detailed Exam Detailed Medical Decision Making Low Complexity Diagnoses Multiple myeloma, remission status unspecified C90.00 Multiple myeloma remission status: unspecified Cancer related pain G89.3 Lytic lesion of bone on x-ray M89.9 (1) Multiple myeloma Multiple myeloma remission status: unspecified Qualified Code(s): C90.00 - Multiple myeloma not having achieved remission
--- NOTE | 2024-10-28 14:13 | Hospitalist Progress Note ---
Date of Service October 28, 2024 Assessment & Plan (1) Multiple myeloma: (2) Cancer related pain: (3) Lytic lesion of bone on x-ray: Plan Mr. Adams is a 69 yo gentleman who was transferred from [facility] [place] for comfort measures after exhausting treatment options for multiple myeloma and subsequent lung/bone/skin manifestations. No significant changes in medical status at this time. Awaiting placement to hospice facility for continued comfort care CM saying the potential facilities will cost in the $300-400s per day. Nephew Miguel does not know about pt's finances, he and friend Julio cannot help fund placement for patient. Plan is to stay here with PREPARATION SUPERVISOR CANNING for the time being. #Multiple myeloma #Cancer pain #Lytic bone lesions - Comfort measures only - Pain mgt: Tylenol 650 PRN q6h Morphine 5mg PRN q3h - for anxiety/agitation: Lorazepam 0.5mg PRN q4h haloperidol 0.5mg PRN q4h - for nausea: Zofran 4mg PRN q4h promethazine 12.5mg PRN q6h - for secretions atropine 1% PRN q1h glycopyrrolate 0.4mg PRN q4h - Pastoral care - Awaiting placement to hospice facility Diet: NPO for meals but may have comfort foods Code status: DNR/DNI Admission and Anticipated Discharge Date Admission Date: October 09, 2024 Supervising Physician Co-Signing Physician Notes I personally examined the patient and verified wylie points of history and exam, discussed case, and agree with decision making and plan documented by Dr. Edward. Patient PREPARATION SUPERVISOR CANNING. Denies needs or pain. Subjective Haroon Adams is resting comfortably when seen this morning. He is accompanied by a friend and reports that he had increased left sided jaw pain overnight, but reports that today this has improved. Patient denies chest pain, palpitations, SOB, cough, abdominal pain, nausea, and vomiting. Patient is afebrile and hemodynamically stable. Physical Exam Physical Exam: General: patient resting comfortably, NAD, non-toxic in appearance, answers q uestions appropriately. Skin: warm, dry, intact HEENT: NC/AT, anicteric sclera, conjunctiva without injection, moist mucus membranes. Heart: +S1/S2, regular, no m/r/g Lungs: equal air entry bilaterally, no rales/rhonchi/wheezes Abd: +BS, soft, NT/ND Ext: warm, no clubbing/cyanosis or edema Neuro: nonfocal, speech intact, no facial droop, moving all extremities. Resident Activity Tracking Resident Involvement: Resident Care Provided Care Provided: Adult Hospital Medicine (1) Multiple myeloma Multiple myeloma remission status: unspecified Qualified Code(s): C90.00 - Multiple myeloma not having achieved remission
--- NOTE | 2024-10-29 09:35 | Hospitalist Progress Note ---
Date of Service October 29, 2024 Assessment & Plan (1) Multiple myeloma: (2) Cancer related pain: (3) Lytic lesion of bone on x-ray: Plan Mr. Adams is a 69 yo gentleman who was transferred from [facility] [place] comfort measures after exhausting treatment options for multiple myeloma and subsequent lung/bone/skin manifestations. No significant changes in medical status at this time. Awaiting placement to hospice facility for continued comfort care CM saying the potential facilities will cost in the $300-400s per day. Nephew Miguel does not know about pt's finances, he and friend Julio cannot help fund placement for patient. Plan is to stay here with HEDIS REGISTERED NURSE RN for the time being. #Multiple myeloma #Cancer pain #Lytic bone lesions - Comfort measures only - Pain mgt: Tylenol 650 PRN q6h Morphine 5mg PRN q3h - for anxiety/agitation: Lorazepam 0.5mg PRN q4h haloperidol 0.5mg PRN q4h - for nausea: Zofran 4mg PRN q4h promethazine 12.5mg PRN q6h - for secretions atropine 1% PRN q1h glycopyrrolate 0.4mg PRN q4h - Pastoral care - Awaiting placement to hospice facility Diet: NPO for meals but may have comfort foods Code status: DNR/DNI Admission and Anticipated Discharge Date Admission Date: October 09, 2024 Supervising Physician Co-Signing Physician Notes I personally examined the patient and verified wylie points of history and exam, discussed case, and agree with decision making and plan documented by Dr. Edward. Friend Julio at bedside. Patient HEDIS REGISTERED NURSE RN. Denies needs or pain. Subjective Haroon Adams is seen resting comfortably this morning. He is accompanied by a friend and reports mild aches and pains. Patient denies chest pain, palpitations, SOB, cough, abdominal pain, nausea, and vomiting. Patient is afebrile and hemodynamically stable. Physical Exam Physical Exam: General: patient resting comfortably, NAD, non-toxic in appearance, answers questions appropriately. Skin: warm, dry, intact HEENT: NC/AT, anicteric sclera, conjunctiva without injection, moist mucus membranes. Heart: +S1/S2, regular, no m/r/g Lungs: equal air entry bilaterally, no rales/rhonchi/wheezes Abd: +BS, soft, NT/ND Ext: warm, no clubbing/cyanosis or edema Neuro: nonfocal, speech intact, no facial droop, moving all extremities. Resident Activity Tracking Resident Involvement: Resident Care Provided Care Provided: Adult [facility] Medicine (1) Multiple myeloma Multiple myeloma remission status: unspecified Qualified Code(s): C90.00 - Multiple myeloma not having achieved remission
--- NOTE | 2024-10-30 10:17 | Hospitalist Progress Note ---
Date of Service October 30, 2024 Assessment & Plan (1) Multiple myeloma: (2) Cancer related pain: (3) Lytic lesion of bone on x-ray: Plan Mr. Adams is a 69 yo gentleman who was transferred [place] [facility] [place] after exhausting treatment options for multiple myeloma and subsequent lung/bone/skin manifestations. No significant changes in medical status at this time. Awaiting placement to hospice facility for continued comfort care CM saying the potential facilities will cost in the $300-400s per day. Nephew Miguel does not know about pt's finances, he and friend Julio cannot help fund placement for patient. Plan is to stay here with PICKING TABLE WORKER for the time being. #Multiple myeloma #Cancer pain #Lytic bone lesions - Comfort measures only - Pain mgt: Tylenol 650 PRN q6h Morphine 5mg PRN q3h - for anxiety/agitation: Lorazepam 0.5mg PRN q4h haloperidol 0.5mg PRN q4h - for nausea: Zofran 4mg PRN q4h promethazine 12.5mg PRN q6h - for secretions atropine 1% PRN q1h glycopyrrolate 0.4mg PRN q4h - Pastoral care - Awaiting placement to hospice facility Diet: NPO for meals but may have comfort foods Code status: DNR/DNI Admission and Anticipated Discharge Date Admission Date: October 09, 2024 Supervising Physician Co-Signing Physician Notes I personally examined the patient and verified wylie points of history and exam, discussed case, and agree with decision making and plan documented by Dr. Edward. Currently comfort measures only. Patient resting comfortably in bed. Denies needs or pain. Subjective Haroon Adams is seen resting comfortably this morning. He is accompanied by a friend and reports mild left sided jaw pain. Patient reports that prior to his admission he was being seen by dentistry and treated with antibiotics for a potential oral abscess that was contributing to his jaw pain. He reports that he was to get additional imaging of his mouth with his dental team, but was then admitted to the hospital. Patient denies chest pain, palpitations, SOB, cough, abdominal pain, nausea, and vomiting. Patient is afebrile and hemodynamically stable. Physical Exam Physical Exam: General: patient resting comfortably, NAD, non-toxic in appearance, answers questions appropriately. Skin: warm, dry, intact HEENT: NC/AT, anicteric sclera, conjunctiva without injection, moist mucus membranes. Heart: +S1/S2, regular, no m/r/g Lungs: equal air entry bilaterally, no rales/rhonchi/wheezes Abd: +BS, soft, NT/ND Ext: warm, no clubbing/cyanosis or edema Neuro: nonfocal, speech intact, no facial droop, moving all extremities. Resident Activity Tracking Resident Involvement: Resident Care Provided Care Provided: Adult [facility] Medicine (1) Multiple myeloma Multiple myeloma remission status: unspecified Qualified Code(s): C90.00 - Multiple myeloma not having achieved remission
--- NOTE | 2024-10-31 13:51 | Hospitalist Progress Note ---
Date of Service October 31, 2024 Assessment & Plan (1) Multiple myeloma: (2) Cancer related pain: (3) Lytic lesion of bone on x-ray: Plan Mr. Adams is a 69 yo gentleman who [place] [facility] [place] after exhausting treatment options for multiple myeloma and subsequent lung/bone/skin manifestations. No significant changes in medical status at this time. Awaiting placement to hospice facility for continued comfort care CM saying the potential facilities will cost in the $300-400s per day. Nephew Miguel does not know about pt's finances, he and friend Julio cannot help fund placement for patient. Plan is to stay here with GUIDANCE CONSULTANT for the time being. #Multiple myeloma #Cancer pain #Lytic bone lesions - Comfort measures only - Pain mgt: Tylenol 650 PRN q6h Morphine 5mg PRN q3h - for anxiety/agitation: Lorazepam 0.5mg PRN q4h haloperidol 0.5mg PRN q4h - for nausea: Zofran 4mg PRN q4h promethazine 12.5mg PRN q6h - for secretions atropine 1% PRN q1h glycopyrrolate 0.4mg PRN q4h - Pastoral care - Awaiting placement to hospice facility Diet: NPO for meals but may have comfort foods Code status: DNR/DNI Admission and Anticipated Discharge Date Admission Date: October 09, 2024 Supervising Physician Co-Signing Physician Notes I personally examined the patient and verified wylie points of history and exam, discussed case, and agree with decision making and plan documented by Dr. Edward. Currently comfort measures only. Patient agrees to scheduling oral morphine. Subjective Haroon Adams is seen resting comfortably this morning. He is accompanied by a friend and reports some general aches and pains in his lower extremities. Patient denies chest pain, palpitations, SOB, cough, abdominal pain, nausea, and vomiting. Patient is afebrile and hemodynamically stable. Will continue comfort measures as we await hospice placement. Physical Exam Physical Exam: General: patient resting comfortably, NAD, non-toxic in appearance, answers questions appropriately. Skin: warm, dry, intact HEENT: NC/AT, anicteric sclera, conjunctiva without injection, moist mucus membranes. Heart: +S1/S2, regular, no m/r/g Lungs: equal air entry bilaterally, no rales/rhonchi/wheezes Abd: +BS, soft, NT/ND Ext: warm, no clubbing/cyanosis or edema Neuro: nonfocal, speech intact, no facial droop, moving all extremities. Resident Activity Tracking Resident Involvement: Resident Care Provided Care Provided: Adult Hospital Medicine (1) Multiple myeloma Multiple myeloma remission status: unspecified Qualified Code(s): C90.00 - Multiple myeloma not having achieved remission
[2024-10-31] MEDS: MoRPHine SULFATE 10 MG/0.5 ML UDP PO SCH (18:10)
--- NOTE | 2024-11-01 10:14 | Hospitalist Progress Note ---
Date of Service November 01, 2024 Assessment & Plan (1) Multiple myeloma: (2) Cancer related pain: (3) Lytic lesion of bone on x-ray: Plan Mr. Adams is a 69 yo gentleman who was transferred from [facility] [place] for comfort measures after exhausting treatment options for multiple myeloma and subsequent lung/bone/skin manifestations. No significant changes in medical status at this time. Awaiting placement to hospice facility for continued comfort care CM saying the potential facilities will cost in the $300-400s per day. Nephew Miguel does not know about pt's finances, he and friend Julio cannot help fund placement for patient. Plan is to stay here with SCHOOL COMMISSIONER for the time being. #Multiple myeloma #Cancer pain #Lytic bone lesions - Comfort measures only - Pain mgt: Tylenol 650 PRN q6h Morphine 5mg PRN q3h - for anxiety/agitation: Lorazepam 0.5mg PRN q4h haloperidol 0.5mg PRN q4h - for nausea: Zofran 4mg PRN q4h promethazine 12.5mg PRN q6h - for secretions atropine 1% PRN q1h glycopyrrolate 0.4mg PRN q4h - Pastoral care - Awaiting placement to hospice facility Diet: NPO for meals but may have comfort foods Code status: DNR/DNI Admission and Anticipated Discharge Date Admission Date: October 09, 2024 Supervising Physician Co-Signing Physician Notes I personally examined the patient and verified wylie points of history and exam, discussed case, and agree with decision making and plan documented by Dr. Edward. Patient agrees to increasing scheduled morphine dose as he continues to have pain. Continue comfort measures only. Subjective Haroon Adams is seen resting comfortably this morning. He is accompanied by a friend and reports that he feels the same from the day before without increasing pains/aches. Patient denies chest pain, palpitations, SOB, cough, abdominal pain, nausea, and vomiting. Patient is afebrile and hemodynamically stable. Will continue comfort measures as we await hospice placement. Physical Exam Physical Exam: General: patient resting comfortably, NAD, non-toxic in appearance, answers questions appropriately. Skin: warm, dry, intact HEENT: NC/AT, anicteric sclera, conjunctiva without injection, moist mucus membranes. Heart: +S1/S2, regular, no m/r/g Lungs: equal air entry bilaterally, no rales/rhonchi/wheezes Abd: +BS, soft, NT/ND Ext: warm, no clubbing/cyanosis or edema Neuro: nonfocal, speech intact, no facial droop, moving all extremities. Resident Activity Tracking Resident Involvement: Resident Care Provided Care Provided: Adult [facility] Medicine (1) Multiple myeloma Multiple myeloma remission status: unspecified Qualified Code(s): C90.00 - Multiple myeloma not having achieved remission
[2024-11-01] MEDS: LORazepam 0.5 MG TAB PO PRN (14:55)
[2024-11-01] MEDS: MoRPHine SULFATE 10 MG/0.5 ML UDP PO SCH (16:00)
--- NOTE | 2024-11-02 10:02 | Hospitalist Progress Note ---
Date of Service November 02, 2024 Assessment & Plan (1) Multiple myeloma: (2) Cancer related pain: (3) Lytic lesion of bone on x-ray: Plan Mr. Adams is a 69 yo gentleman who [place] [facility] [place] exhausting treatment options for multiple myeloma and subsequent lung/bone/skin manifestations. No significant changes in medical status at this time. Awaiting placement to hospice facility for continued comfort care CM saying the potential facilities will cost in the $300-400s per day. Nephew Miguel does not know about pt's finances, he and friend Julio cannot help fund placement for patient. Plan is to stay here with PESTICIDE CHEMIST for the time being. #Multiple myeloma #Cancer pain #Lytic bone lesions - Comfort measures only - Pain mgt: Tylenol 650 PRN q6h Morphine 7.5mg q4h [facility] - for anxiety/agitation: Lorazepam 0.5mg PRN q4h haloperidol 0.5mg PRN q4h - for nausea: Zofran 4mg PRN q4h promethazine 12.5mg PRN q6h - for secretions atropine 1% PRN q1h glycopyrrolate 0.4mg PRN q4h - Pastoral care - Awaiting placement to hospice facility Diet: NPO for meals but may have comfort foods Code status: DNR/DNI Admission and Anticipated Discharge Date Admission Date: October 09, 2024 Supervising Physician Co-Signing Physician Notes I personally examined the patient and verified wylie points of history and exam, discussed case, and agree with decision making and plan documented by Dr. Edward. Patient continues to have pain, increased scheduled morphine dose. Will consider scheduling lorazepam if he continues to feel anxious. Remains on comfort measures only. Subjective Haroon Adams is seen resting comfortably this morning. He is accompanied by a friend and reports that he feels the same from the day before without increasing pains/aches. Patient denies chest pain, palpitations, SOB, cough, abdominal pain, nausea, and vomiting. Patient is afebrile and hemodynamically stable. Will continue comfort measures as we await hospice placement. Physical Exam Physical Exam: General: patient resting comfortably, NAD, non-toxic in appearance, answers questions appropriately. Skin: warm, dry, intact HEENT: NC/AT, anicteric sclera, conjunctiva without injection, moist mucus membranes. Heart: +S1/S2, regular, no m/r/g Lungs: equal air entry bilaterally, no rales/rhonchi/wheezes Abd: +BS, soft, NT/ND Ext: warm, no clubbing/cyanosis or edema Neuro: nonfocal, speech intact, no facial droop, moving all extremities. Resident Activity Tracking Resident Involvement: Resident Care Provided Care Provided: Adult [facility] Medicine (1) Multiple myeloma Multiple myeloma remission status: unspecified Qualified Code(s): C90.00 - Multiple myeloma not having achieved remission
[2024-11-02] MEDS: LORazepam 0.5 MG TAB PO STA (16:16)
[2024-11-02] MEDS: MoRPHine SULFATE 10 MG/0.5 ML UDP PO SCH (16:16)
--- NOTE | 2024-11-03 15:39 | Hospitalist Progress Note ---
Date of Service November 03, 2024 Assessment & Plan (1) Multiple myeloma: (2) Cancer related pain: (3) Lytic lesion of bone on x-ray: Plan Mr. Adams is a 69 yo gentleman who [place] [facility] [place] exhausting treatment options for multiple myeloma and subsequent lung/bone/skin manifestations. No significant changes in medical status at this time. Awaiting placement to hospice facility for continued comfort care CM saying the potential facilities will cost in the $300-400s per day. Nephew Miguel does not know about pt's finances, he and friend Julio cannot help fund placement for patient. Plan is to stay here with LIME SUPERVISOR for the time being. #Multiple myeloma #Cancer pain #Lytic bone lesions - Comfort measures only - Pain mgt: Tylenol 650 PRN q6h Morphine 10mg q4h [facility] - for anxiety/agitation: Lorazepam 0.5mg PRN q4h consider scheduled dosing haloperidol 0.5mg PRN q4h - for nausea: Zofran 4mg PRN q4h promethazine 12.5mg PRN q6h - for secretions atropine 1% PRN q1h glycopyrrolate 0.4mg PRN q4h - Pastoral care - Awaiting placement to hospice facility Diet: NPO for meals but may have comfort foods Code status: DNR/DNI Admission and Anticipated Discharge Date Admission Date: October 09, 2024 Supervising Physician Co-Signing Physician Notes I personally examined the patient and verified wylie points of history and exam, discussed case, and agree with decision making and plan documented by Dr. Edward. Pain control on scheduled morphine 10 mg every 4 hours, advised nurse to provide glycopyrrolate for secretions, patient resting comfortably. There has been no access to patient's financial records and transfer to hospice facility unlikely. Continue comfort measures only. Subjective Haroon Adams is seen resting comfortably this morning. Patient is difficult to rouse but denies chest pain, palpitations, SOB, cough, abdominal pain, nausea, and vomiting. Patient is afebrile and hemodynamically stable. Will continue comfort measures as we await hospice placement. Physical Exam Physical Exam: General: patient resting comfortably, NAD, non-toxic in appearance, answers questions appropriately. Skin: warm, dry, intact HEENT: NC/AT, anicteric sclera, conjunctiva without injection, moist mucus membranes. Heart: +S1/S2, regular, no m/r/g Lungs: equal air entry bilaterally, no rales/rhonchi/wheezes Abd: +BS, soft, NT/ND Ext: warm, no clubbing/cyanosis or edema Neuro: nonfocal, speech intact, no facial droop, moving all extremities. Results & Data Results & Data Vital Signs (Past 12 Hours) Vital Signs O2 Del Method 11/03/24 08:05 Room Air Resident Activity Tracking Resident Involvement: Resident Care Provided Care Provided: Adult Hospital Medicine (1) Multiple myeloma Multiple myeloma remission status: unspecified Qualified Code(s): C90.00 - Multiple myeloma not having achieved remission
[2024-11-03] MEDS: ATROPINE SULFATE 1% OP SOLN 5 ML BTL SL PRN (15:59)
--- NOTE | 2024-11-04 12:54 | Hospitalist Progress Note ---
Date of Service November 04, 2024 Assessment & Plan (1) Multiple myeloma: (2) Cancer related pain: (3) Lytic lesion of bone on x-ray: Plan Mr. Adams is a 69 yo gentleman who was transferred from [facility] [place] for comfort measures after exhausting treatment options for multiple myeloma and subsequent lung/bone/skin manifestations. No significant changes in medical status at this time. Awaiting placement to hospice facility for continued comfort care CM saying the potential facilities will cost in the $300-400s per day. Nephgarth Rivera does not know about pt's finances, he and friend Lorin cannot help fund placement for patient. Plan is to stay here with SITE SAFETY REPRESENTATIVE for the time being. #Multiple myeloma #Cancer pain #Lytic bone lesions - Comfort measures only - Pain mgt: Tylenol 650 PRN q6h Morphine 10mg q4h [facility] - for anxiety/agitation: Lorazepam 0.5mg PRN q4h consider scheduled dosing haloperidol 0.5mg PRN q4h - for nausea: Zofran 4mg PRN q4h promethazine 12.5mg PRN q6h - for secretions atropine 1% PRN q1h glycopyrrolate 0.4mg PRN q4h - Pastoral care - Awaiting placement to hospice facility Diet: NPO for meals but may have comfort foods Code status: DNR/DNI Admission and Anticipated Discharge Date Admission Date: October 09, 2024 Supervising Physician Co-Signing Physician Notes I personally examined the patient and verified all wylie points of history and exam, discussed case, and agree with decision making with Dr Wagner fuchs, appearing comfortable. friend lorin at the bedside. offered empathy and support. no needs identified vitals noted sleeping comfortably nad breathing unlabored no accessory muscles good effort skin no rashes no pallor or icterus end of life care -comfortable, anticipate passing here otherwise as above Subjective Haroon Adams is seen resting comfortably this morning. Patient is accompanied by friend Lorin this morning. Patient sleeps through his exam and has remained afebrile and hemodynamically stable and appears comfortable. Will continue comfort measures as we await hospice placement. Physical Exam Physical Exam: General: patient resting comfortably, NAD, non-toxic in appearance, answers questions appropriately. Skin: warm, dry, intact HEENT: NC/AT, anicteric sclera, conjunctiva without injection, moist mucus membranes. Heart: +S1/S2, regular, no m/r/g Lungs: equal air entry bilaterally, no rales/rhonchi/wheezes Abd: +BS, soft, NT/ND Ext: warm, no clubbing/cyanosis or edema Neuro: nonfocal, speech intact, no facial droop, moving all extremities. Results & Data Results & Data Vital Signs (Past 12 Hours) Vital Signs O2 Del Method 11/04/24 07:32 Room Air Resident Activity Tracking Resident Involvement: Resident Care Provided Care Provided: Adult Hospital Medicine (1) Multiple myeloma Multiple myeloma remission status: unspecified Qualified Code(s): C90.00 - Multiple myeloma not having achieved remission
--- NOTE | 2024-11-04 13:20 | Billing Data ---
Date of Service November 04, 2024 Coding Level of Care Code 10061 SUB INP/OBS CARE
--- NOTE | 2024-11-04 17:18 | Discharge Summary ---
Date of Service November 04, 2024 Admission HPI Per Admitting Provider Pt is a 69 yo male who presents as a transfer from [facility] carrying diagnosis of multiple myeloma with acute metabolic encephalopathy, left pubic rami and sacral alar fracture 2/2 lytic lesions, soft tissue osseous lesions at chest wall, and bilateral pleural effusions. Treatments for his conditions were explored. After meeting with his primary oncologist and palliative care team, pt's caregiver and next of kin decided to change his code status to comfort measures only. He was transferred back to [facility] for comfort measures to be carried out. Admission Exam Per Admitting Provider Constitutional: well-appearing, no acute distress HEENT: NCAT, no conjunctival injection CV: regular rhythm, no murmur appreciated, extremities well-perfused, no LE edema Resp: CTABL, no wheezes/rales/rhonchi appreciated, no increased work of breathing GI: nondistended MSK: Palpable R chest wall mass Skin: warm, dry, no rash appreciated Neuro: alert, oriented, no focal neurologic deficit appreciated Principal Diagnosis Multiple myeloma Discharge Exam Patient initially examined prior to . Look at certificate for more info regarding pronouncement and exam. Discharge Data Allergies Allergy/AdvReac Type Severity Reaction Status Date / Time amoxicillin [From Augmentin] Allergy Intermediate SWELLING Verified 09/19/24 12:27 AROUND EYES clavulanic acid Allergy Intermediate SWELLING Verified 09/19/24 12:27 AROUND THE EYES Penicillins Allergy Intermediate AUGMENTIN Verified 09/19/24 12:27 - SWELLING AROUND THE EYES diflunisal AdvReac Intermediate VOMITING Verified 09/19/24 12:27 valsartan [From Diovan] AdvReac Intermediate Vomiting Verified 09/19/24 12:27 Hospital Course (1) YOSI (acute kidney injury): (2) Hypomagnesemia: (3) Volume depletion: (4) History of pulmonary embolus (PE): (5) Hypertension: (6) Dyslipidemia: (7) GE reflux: (8) History of DVT (deep vein thrombosis): (9) Acute renal failure: (10) Type 2 diabetes mellitus: Plan Patient at 15:15 today. Patient was on comfort care measures and was waiting on potential hospice transfer vs resumed inpatient comfort measures. Hospital course Mr. Adams is a 69 yo gentleman who was transferred from [facility] for comfort measures after exhausting treatment options for multiple myeloma and subsequent lung/bone/skin manifestations. #Multiple myeloma #Cancer pain #Lytic bone lesions - Comfort measures only - Pain mgt: Tylenol 650 PRN q6h Morphine 10mg q4h [facility] - for anxiety/agitation: Lorazepam 0.5mg PRN q4h consider scheduled dosing haloperidol 0.5mg PRN q4h - for nausea: Zofran 4mg PRN q4h promethazine 12.5mg PRN q6h - for secretions atropine 1% PRN q1h glycopyrrolate 0.4mg PRN q4h - Pastoral care - Awaiting placement to hospice facility Diet: NPO for meals but may have comfort foods Code status: DNR/DNI Total Time Total Time Spent Total Time Spent (In Minutes): See attending attestation Discharge Plan Discharge Items Patient Disposition: Other Date/Time: 11/04/24 15:15 Supervising Physician Co-Signing Physician Notes I personally examined the patient and verified all wylie points of history and exam, discussed case, and agree with decision making with Dr Edward passed peacefully - i was called to pronounce no response to stimuli, no heart tones or pulses, no breath sounds or spontaneous respirations, pupils fixed/dilated/nonreactive; time of 15:15. offered empathy and support to friend, Julio. cause of , multiple myeloma otherwise as above
--- NOTE | 2024-11-04 17:25 | Billing Data ---
Date of Service November 04, 2024 Coding Level of Care Code 70624 IN/OBS DISCH 30 MIN/LESS Comment disregard [id number], thanks
== END 2024-11-04 22:09 | disposition expired | DRG 951 ==
LOC: 3E 10-09 02:25 → SUATTDRO 10-09 02:25